=== PATIENT | male | born 1945 | race Caucasian/White ===

== ENCOUNTER 2016-09-22 10:34 | Observation (INO) | payer MEDICARE ==
[2016-09-22] MEDS ORDERED: Sodium Chloride 0.9% 2.5 ML Syringe FLUSH PRN (10:46)
[2016-09-22] MEDS ORDERED: Sodium Chloride 0.9% 10 ML Syringe FLUSH PRN (10:46)
[2016-09-22] MEDS ORDERED: Aspirin 81 MG Tab.Chew PO ONE (10:46)
[2016-09-22] MEDS ORDERED: Famotidine 20 MG/2 ML SDV IVPUSH ONE (10:49)
[2016-09-22] MEDS ORDERED: Nitroglycerin 2% Oint 1 GM UD Packet TOP ONE (10:49)
[2016-09-22] MEDS ORDERED: Ondansetron 4 MG/2 ML SDV ONE (10:50)
[2016-09-22] MEDS ORDERED: Nitroglycerin 0.4 MG Tab.SL ONE (10:50)
[2016-09-22] MEDS ORDERED: Aspirin 81 MG Tab.Chew ONE (10:50)
[2016-09-22] MEDS ORDERED: Morphine 2 MG/ML Syringe ONE (10:50)
[2016-09-22] MEDS ORDERED: Ondansetron 4 MG/2 ML SDV IVPUSH ONE (10:51)
[2016-09-22] MEDS ORDERED: Morphine 10 MG/ML Syringe IV ONE (10:51)
--- NOTE | 2016-09-22 10:57 | EDM.PDOC ---
ED HPI GENERAL MEDICAL PROBLEM - General Chief Complaint: Chest Pain Stated Complaint: CHEST PAIN Time Seen by Provider: 09/22/16 10:40 Source of Information: Reports: Patient History Limitations: Reports: No Limitations - History of Present Illness INITIAL COMMENTS - FREE TEXT/NARRATIVE: HISTORY AND PHYSICAL: []71-year-old male presenting with left-sided chest pain has been present since 6:00 this morning. History of Present Illness: [Pain started 2-3 days ago has been waxing and waning has been constant since 6: 00 AM today. Stent placement in 2009 in [place] Previous history of [place]] and stent placement Son-in-law at bedside relates history of having this pain occur monthly/ recently moved here from [place]. Son-in-law states patient has pain medication for this but refuses to take it as it makes him sleepy and he doesn't want to sleep all day. Patient walked [facility] to come to the emergency room. Review of Systems: As per history of present illness and below otherwise all systems reviewed and negative. Past medical history: As per history of present illness and as reviewed below otherwise noncontributory. Surgical history: As per history of present illness and as reviewed below otherwise noncontributory. Social history: No reported history of drug or alcohol abuse. Family history: As per history of present illness and as reviewed below otherwise noncontributory. Physical exam: Alert and oriented. skin is diaphoretic. Quite anxious on arrival. HEENT: Atraumatic, normocehpalic, pupils reactive, negative for conjunctival pallor or scleral icterus, mucous membranes moist, throat clear, neck supple, nontender, trachea midline. Lungs: Clear to auscultation, breath sounds equal bilaterally, chest non tender. Heart: S1S2, regular, negative for clicks, rubs, or JVD. Pain is somewhat reproducible with palpation to chest Abdomen: Soft, nondistended, nontender. Negative for masses or hepatossplenmegaly. Negative for costovertebral tenderness. Pelvis: Stable nontender. Genitourinary: Deferred. Rectal: Deferred Extremities: Atraumatic, negative for cords or calf pain. Neurovascular unremarkable. Neuro: Awake, alert, oriented. Cranial nerves II through XII unremarkable. Cerebellum unremarkable. Motor and sensory unremarkable throughout. Exam nonfocal. Patient states pain has improved and is sleeping but awakened with blood pressure checks complains the pain is worse again and at a 10. Continues to sleep in between checks. Repeat EKG showing sinus rhythm no changes. Discussed case with Dr. Parker Lopez who is in agreement to observe on telemetry. Consider referral to Dr. Fay and to gastroenterology Diagnostics: [Chest pain protocol] Therapeutics: [Aspirin, Zofran, morphine] Impression: [Atypical chest wall pain] Plan: [Observe on telemetry] Definitive disposition and diagnosis as appropriate pending reevaluation and review of above. Onset: Today, Gradual Duration: Hour(s): (6), Getting Worse Location: Reports: Chest Quality: Reports: Ache, Pressure, Same as Previous Episode Severity: Moderate Improves with: Reports: None Worsens with: Reports: None Associated Symptoms: Reports: No Other Symptoms Midsternal CP Pain Score (Numeric/FACES): 8 - Related Data Allergies Allergy/AdvReac Type Severity Reaction Status Date / Time No Known Allergies Allergy Verified 09/22/16 10:43 Home Meds: Home Meds . [Unable to Verify Home Med List] 09/22/16 [History] Past Medical History HEENT History: Reports: None Cardiovascular History: Reports: High Cholesterol, Hypertension, [place] Respiratory History: Reports: None Gastrointestinal History: Reports: None Genitourinary History: Reports: None Musculoskeletal History: Reports: None Neurological History: Reports: None Psychiatric History: Reports: None Endocrine/Metabolic History: Reports: None Hematologic History: Reports: None Immunologic History: Reports: None Oncologic (Cancer) History: Reports: None Dermatologic History: Reports: None - Infectious Disease History Infectious Disease History: Reports: None - Past Surgical History Head Surgeries/Procedures: Reports: None HEENT Surgical History: Reports: Tonsillectomy, Other (See Below) Other HEENT Surgeries/Procedures: Dental extraction. Throat Surgery Cardiovascular Surgical History: Reports: Carotid Stents Respiratory Surgical History: Reports: None GI Surgical History: Reports: Cholecystectomy Male Surgical History: Reports: None Endocrine Surgical History: Reports: None Musculoskeletal Surgical History: Reports: None Oncologic Surgical History: Reports: None Dermatological Surgical History: Reports: None Social & Family History - Family History Family Medical History: Noncontributory - Tobacco Use Smoking Status *Q: Never Smoker Second Hand Smoke Exposure: No - Caffeine Use Caffeine Use: Reports: Coffee - Recreational Drug Use Recreational Drug Use: No ED ROS GENERAL - Review of Systems Review Of Systems: ROS reveals no pertinent complaints other than HPI. ED EXAM, GENERAL - Physical Exam Exam: See Below (see dictation) Course - Vital Signs Last Recorded V/S: Last Vital Signs Temp 36.2 C 09/22/16 10:39 Pulse 90 09/22/16 10:39 Resp 16 09/22/16 10:39 BP 107/87 09/22/16 11:33 Pulse Ox 98 09/22/16 10:46 - Orders/Labs/Meds Orders: Active Orders 24 hr Category Date Time Status Cardiac Monitoring [RC] . DIRECTED Care 09/22/16 10:46 Active EKG 12 Lead [EKG Documentation Completion] [RC] STAT Care 09/22/16 11:27 Active EKG 12 Lead [EKG Documentation Completion] [RC] STAT Care 09/22/16 11:27 Active EKG Documentation Completion [RC] STAT Care 09/22/16 10:47 Active Oxygen Therapy [RC] ASDIRECTED Care 09/22/16 10:46 Active Pulse Oximetry [RC] ASDIRECTED Care 09/22/16 10:46 Active UA W/MICROSCOPIC [URIN] Stat Lab 09/22/16 11:51 Ordered GI Cocktail with Reglan 25 ML PO x 1 Med 09/22/16 12:09 Ordered Alum Hydrox/Mag Hydrox/Simeth [Mag-Al Plus] 15 ml Metoclopramide [Reglan] 5 mg Lidocaine 2% [Xylocaine 2% Viscous] 5 ml PO ONETIME Sodium Chloride 0.9% [Saline Flush] Med 09/22/16 10:46 Active 10 ml FLUSH ASDIRECTED PRN Sodium Chloride 0.9% [Saline Flush] Med 09/22/16 10:46 Active 2.5 ml FLUSH ASDIRECTED PRN Peripheral IV Insertion Adult [OM.PC] Stat Oth 09/22/16 10:46 Ordered Medication Orders Sodium Chloride (Saline Flush) 10 ml FLUSH ASDIRECTED PRN PRN Reason: Keep Vein Open Last Admin: 09/22/16 11:06 Dose: 10 ml Sodium Chloride (Saline Flush) 2.5 ml FLUSH ASDIRECTED PRN PRN Reason: Keep Vein Open Last Admin: 09/22/16 11:08 Dose: 2.5 ml Labs: Laboratory Tests 09/22/16 09/22/16 09/22/16 Range/Units 10:40 10:40 10:40 WBC 4.98 (4.0-11.0) K/uL RBC 4.53 (4.50-5.90) M/uL Hgb 12.6 L (13.0-17.0) g/dL Hct 39.2 (38.0-50.0) % MCV 86.5 (80.0-98.0) fL MCH 27.8 (27.0-32.0) pg MCHC 32.1 (31.0-37.0) g/dL RDW Std Deviation 50.1 (28.0-62.0) fl RDW Coeff of Ethan 16 H (11.0-15.0) % Plt Count 268 (150-400) K/uL MPV 9.80 (7.40-12.00) fL Neut % (Auto) 61.0 (48.0-80.0) % Lymph % (Auto) 22.9 (16.0-40.0) % [place] % (Auto) 13.3 (0.0-15.0) % Eos % (Auto) 2.6 (0.0-7.0) % Baso % (Auto) 0.2 (0.0-1.5) % Neut # (Auto) 3.0 (1.4-5.7) K/uL Lymph # (Auto) 1.1 (0.6-2.4) K/uL [place] # (Auto) 0.7 (0.0-0.8) K/uL Eos # (Auto) 0.1 (0.0-0.7) K/uL Baso # (Auto) 0.0 (0.0-0.1) K/uL Nucleated RBC % 0.0 /100WBC Nucleated RBCs # 0 K/uL INR 0.97 (0.86-1.11) D-Dimer, Quantitative (0.0-0.52) mg/LFEU Sodium 143 (136-146) mmol/L Potassium 3.5 (3.5-5.1) mmol/L Chloride 109 (98-110) mmol/L Carbon Dioxide 24 (21-31) mmol/L BUN 16 (6.0-23.0) mg/dL Creatinine 0.8 (0.6-1.5) mg/dL Est Cr Clr Drug Dosing 86.53 mL/min Estimated GFR (MDRD) > 60.0 ml/min Glucose 139 H (60-110) mg/dL Calcium 8.7 L (8.8-10.8) mg/dL Total Bilirubin 0.3 (0.1-1.5) mg/dL AST 17 (5-40) IU/L ALT 15 (8-54) IU/L Alkaline Phosphatase 78 (40-150) Troponin I (0.0-0.29) NG/ML Total Protein 7.3 (6.0-8.0) g/dL Albumin 4.5 (3.4-4.8) g/dL Globulin 2.8 (2.0-3.5) g/dL Albumin/Globulin Ratio 1.6 (1.3-2.8) Amylase 52 (10-90) U/L Lipase 14 (7-80) U/L 09/22/16 09/22/16 Range/Units 10:40 10:40 WBC (4.0-11.0) K/uL RBC (4.50-5.90) M/uL Hgb (13.0-17.0) g/dL Hct (38.0-50.0) % MCV (80.0-98.0) fL MCH (27.0-32.0) pg MCHC (31.0-37.0) g/dL RDW Std Deviation (28.0-62.0) fl RDW Coeff of Ethan (11.0-15.0) % Plt Count (150-400) K/uL MPV (7.40-12.00) fL Neut % (Auto) (48.0-80.0) % Lymph % (Auto) (16.0-40.0) % [place] % (Auto) (0.0-15.0) % Eos % (Auto) (0.0-7.0) % Baso % (Auto) (0.0-1.5) % Neut # (Auto) (1.4-5.7) K/uL Lymph # (Auto) (0.6-2.4) K/uL [place] # (Auto) (0.0-0.8) K/uL Eos # (Auto) (0.0-0.7) K/uL Baso # (Auto) (0.0-0.1) K/uL Nucleated RBC % /100WBC Nucleated RBCs # K/uL INR (0.86-1.11) D-Dimer, Quantitative 0.45 (0.0-0.52) mg/LFEU Sodium (136-146) mmol/L Potassium (3.5-5.1) mmol/L Chloride (98-110) mmol/L Carbon Dioxide (21-31) mmol/L BUN (6.0-23.0) mg/dL Creatinine (0.6-1.5) mg/dL Est Cr Clr Drug Dosing mL/min Estimated GFR (MDRD) ml/min Glucose (60-110) mg/dL Calcium (8.8-10.8) mg/dL Total Bilirubin (0.1-1.5) mg/dL AST (5-40) IU/L ALT (8-54) IU/L Alkaline Phosphatase (40-150) Troponin I < 0.10 (0.0-0.29) NG/ML Total Protein (6.0-8.0) g/dL Albumin (3.4-4.8) g/dL Globulin (2.0-3.5) g/dL Albumin/Globulin Ratio (1.3-2.8) Amylase (10-90) U/L Lipase (7-80) U/L Meds: Medications Generic Name Dose Route Start Last Admin Trade Name Freq PRN Reason Stop Dose Admin Sodium Chloride 10 ml 09/22/16 10:46 09/22/16 11:06 Saline Flush FLUSH 10 ml ASDIRECTED PRN Administration Keep Vein Open Sodium Chloride 2.5 ml 09/22/16 10:46 09/22/16 11:08 Saline Flush FLUSH 2.5 ml ASDIRECTED PRN Administration Keep Vein Open Discontinued Medications Generic Name Dose Route Start Last Admin Trade Name Freq PRN Reason Stop Dose Admin Aspirin 324 mg 09/22/16 10:46 09/22/16 10:54 Aspirin PO 09/22/16 10:47 324 mg ONETIME ONE Administration Aspirin Confirm 09/22/16 10:50 09/22/16 11:32 Aspirin Administered 09/22/16 10:51 Not Given Dose 324 mg .ROUTE .STK-MED ONE Al Hydroxide/Mg Hydroxide 15 0 ml 09/22/16 12:09 09/22/16 12:17 ml/ Metoclopramide HCl 5 mg/ PO 09/22/16 12:10 1 each Lidocaine HCl 5 ml ONETIME ONE Administration Famotidine 20 mg 09/22/16 10:49 09/22/16 11:16 Pepcid IVPUSH 09/22/16 10:50 20 mg ONETIME ONE Administration Ketorolac Tromethamine 30 mg 09/22/16 11:34 09/22/16 11:41 Toradol IVPUSH 09/22/16 11:35 30 mg ONETIME ONE Administration Morphine Sulfate Confirm 09/22/16 10:50 09/22/16 11:33 Morphine Administered 09/22/16 10:51 Not Given Dose 2 mg .ROUTE .STK-MED ONE Morphine Sulfate 2 mg 09/22/16 10:51 09/22/16 11:34 Morphine IV 09/22/16 10:52 Not Given ONETIME ONE Morphine Sulfate 2 mg 09/22/16 11:18 09/22/16 11:20 Morphine IVPUSH 09/22/16 11:19 2 mg ONETIME ONE Administration Morphine Sulfate 2 mg 09/22/16 11:44 Morphine IVPUSH 09/22/16 11:45 ONETIME ONE Nitroglycerin 0.4 mg 09/22/16 10:49 09/22/16 11:14 Nitrostat SL 09/22/16 10:50 0.4 mg ONETIME ONE Administration Nitroglycerin 1 gm 09/22/16 10:49 09/22/16 11:25 Nitro-Bid 2% TOP 09/22/16 10:50 1 gm ONETIME ONE Administration Nitroglycerin Confirm 09/22/16 10:50 09/22/16 11:33 Nitrostat Administered 09/22/16 10:51 Not Given Dose 0.4 mg .ROUTE .STK-MED ONE Ondansetron HCl Confirm 09/22/16 10:50 09/22/16 11:34 Zofran Administered 09/22/16 10:51 Not Given Dose 4 mg .ROUTE .STK-MED ONE Ondansetron HCl 4 mg 09/22/16 10:51 09/22/16 10:58 Zofran IVPUSH 09/22/16 10:52 4 mg ONETIME ONE Administration Departure - Departure Time of Disposition: 12:52 Disposition: Refer to Observation Condition: good Clinical Impression: Atypical chest pain Forms: ED Department Discharge - My Orders Last 24 Hours: My Active Orders 09/22/16 10:46 Cardiac Monitoring [RC] . DIRECTED Oxygen Therapy [RC] ASDIRECTED Pulse Oximetry [RC] ASDIRECTED Sodium Chloride 0.9% [Saline Flush] 10 ml FLUSH ASDIRECTED PRN Sodium Chloride 0.9% [Saline Flush] 2.5 ml FLUSH ASDIRECTED PRN Peripheral IV Insertion Adult [OM.PC] Stat 09/22/16 10:47 EKG Documentation Completion [RC] STAT 09/22/16 11:27 EKG 12 Lead [EKG Documentation Completion] [RC] STAT EKG 12 Lead [EKG Documentation Completion] [RC] STAT 09/22/16 11:51 UA W/MICROSCOPIC [URIN] Stat 09/22/16 12:09 GI Cocktail with Reglan 25 ML PO x 1 Alum Hydrox/Mag Hydrox/Simeth [Mag-Al Plus ] 15 ml Metoclopramide [Reglan] 5 mg Lidocaine 2% [Xylocaine 2% Viscous] 5 ml PO ONETIME - Assessment/Plan Last 24 Hours: My Active Orders 09/22/16 10:46 Cardiac Monitoring [RC] . DIRECTED Oxygen Therapy [RC] ASDIRECTED Pulse Oximetry [RC] ASDIRECTED Sodium Chloride 0.9% [Saline Flush] 10 ml FLUSH ASDIRECTED PRN Sodium Chloride 0.9% [Saline Flush] 2.5 ml FLUSH ASDIRECTED PRN Peripheral IV Insertion Adult [OM.PC] Stat 09/22/16 10:47 EKG Documentation Completion [RC] STAT 09/22/16 11:27 EKG 12 Lead [EKG Documentation Completion] [RC] STAT EKG 12 Lead [EKG Documentation Completion] [RC] STAT 09/22/16 11:51 UA W/MICROSCOPIC [URIN] Stat 09/22/16 12:09 GI Cocktail with Reglan 25 ML PO x 1 Alum Hydrox/Mag Hydrox/Simeth [Mag-Al Plus ] 15 ml Metoclopramide [Reglan] 5 mg Lidocaine 2% [Xylocaine 2% Viscous] 5 ml PO ONETIME
[2016-09-22] MEDS: Nitroglycerin 0.4 MG Tab.SL SL ONE ×3 (11:03→11:14)
--- NOTE | 2016-09-22 11:17 | CR ---
EXAMINATION: Portable chest radiograph. HISTORY: Chest pain. FINDINGS: The trachea is midline. The cardiomediastinal silhouette is within normal limits. No pulmonary infil trates, effusions or pneumothorax. Mild aortic calcifications. Degenerative changes are noted within the shoulders bilaterally. IMPRESSION: No acute cardiopulmonary process.
[2016-09-22] MEDS ORDERED: Morphine 2 MG/ML Syringe IVPUSH ONE ×2 (11:18→11:44)
[2016-09-22 11:25] LABS: CHLORIDE,CL 109 mmol/L (98-110); SODIUM,NA 143 mmol/L (136-146)
[2016-09-22] MEDS ORDERED: Ketorolac 30 MG/ML SDV IVPUSH ONE (11:34)
[2016-09-22] MEDS ORDERED: Alum Hydrox/Mag Hydrox/Simeth 15 ML, Metoclopramide 5 MG, Lidocaine 2% 5 ML PO ONE ×3 (12:09)
[2016-09-22] MEDS ORDERED: Morphine 2 MG/ML Syringe IV PRN (14:20)
--- NOTE | 2016-09-22 14:45 | PCM.HP ---
H&P History of Present Illness - General Date of Service: 09/22/16 Admit Problem/Dx: Admission Diagnosis/Problem Admission Diagnosis/Problem Chest wall pain Source of Information: Patient History Limitations: Reports: Other (POOR HISTORIAN) - History of Present Illness Initial Comments - Free Text/Narative: 71 M with chest pain. Sharp, anterior left chest. He awoke with it but he's been having it for a month or so on and off. No relieving or exacerbating factors that he can say. Not pleuritic. No SOB, diaphoresis, N/V. No GI type sxs. He's tried OTC GI RX w/o relief. Went to an ER in [place] (from where he just moved) with same sxs. They sent him home from ER telling him it was "a muscle". He has not seen his appliance repairer in about half a year. Some pain relief with pain meds in ER but ER CAREER DEVELOPMENT SPECIALIST was uncomfortable sending him home from ER given that he is a new patient to our system. He just moved here with his to be closer to his step-daughter. "I didn't want to move here". He denies CHF sxs, syncope, F/C, cough, recent falls. He walks daily and doesn' t notice the pain worsening. This is unlike his angina he had when he got his stents a few years back. He denied much ETOH usage to me but his family told ER staff that he drinks more than 6 ETOH drinks a day. Midsternal CP Pain Score (Numeric/FACES): 8 - Related Data Allergies/Adverse Reactions: Allergies Allergy/AdvReac Type Severity Reaction Status Date / Time No Known Allergies Allergy Verified 09/22/16 10:43 Home Medications: Home Meds . [Unable to Verify Home Med List] 09/22/16 [History] Past Medical History HEENT History: Reports: None Cardiovascular History: Reports: High Cholesterol, Hypertension, [place], Stents Respiratory History: Reports: None Gastrointestinal History: Reports: None Genitourinary History: Reports: None Musculoskeletal History: Reports: None Neurological History: Reports: None Psychiatric History: Reports: None Endocrine/Metabolic History: Reports: None Hematologic History: Reports: None Immunologic History: Reports: None Oncologic (Cancer) History: Reports: None Dermatologic History: Reports: None - Infectious Disease History Infectious Disease History: Reports: None - Past Surgical History Head Surgeries/Procedures: Reports: None HEENT Surgical History: Reports: Tonsillectomy, Other (See Below) Other HEENT Surgeries/Procedures: Dental extraction. Throat Surgery Cardiovascular Surgical History: Reports: Coronary Artery Stent Respiratory Surgical History: Reports: None GI Surgical History: Reports: Cholecystectomy Male Surgical History: Reports: None Endocrine Surgical History: Reports: None Musculoskeletal Surgical History: Reports: None Oncologic Surgical History: Reports: None Dermatological Surgical History: Reports: None Social & Family History - Family History Family Medical History: Noncontributory - Tobacco Use Smoking Status *Q: Never Smoker Second Hand Smoke Exposure: No - Caffeine Use Caffeine Use: Reports: Coffee - Alcohol Use Alcohol Use History: Yes Alcohol Use Frequency: Daily - Recreational Drug Use Recreational Drug Use: No - Living Situation & Occupation Living situation: Reports: Occupation: Retired H&P Review of Systems - Review of Systems: Review Of Systems: ROS reveals no pertinent complaints other than HPI. Exam - Exam Exam: See Below - Vital Signs Vital Signs: Last Vital Signs Temp 36.2 C 09/22/16 10:39 Pulse 90 09/22/16 10:39 Resp 16 09/22/16 10:39 BP 107/87 09/22/16 11:33 Pulse Ox 98 09/22/16 10:46 Weight: 70.2 kg - Exam General: Alert, Oriented, Cooperative, Other (disheveled; poor historian but oriented and appropriate) HEENT: Conjunctiva Clear, EACs Clear Neck: Supple, Trachea Midline, +2 Carotid Pulse wo Bruit. No: Carotid Bruit, JVD, Thyromegaly Lungs: Clear to Auscultation, Normal Respiratory Effort Cardiovascular: Regular Rate, Regular Rhythm, Normal S1, Normal S2, Gallop/S4, Other (significant chest wall tenderness left chest; no bruising or zoster rash) Abdomen: Normal Bowel Sounds, Soft, Pelvis Stable. No: Organomegaly, Peritoneal Signs, Distention, Guarding, Rigidity, Rebound, Tenderness Extremities: Normal Inspection. No: Edema Skin: Warm, Dry, Intact. No: Rash, Ecchymosis Neurological: Cranial Nerves Intact, Reflexes Equal Bilateral Neuro Extensive - Mental Status: Alert, Oriented x3 Neuro Extensive - Motor, Sensory, Reflexes: CN II-XII Intact, Normal Gait, Normal Reflexes Psychiatric: Alert, Normal Affect, Normal Mood - Patient Data Result Diagrams: 09/22/16 10:40 09/22/16 10:40 EKG INTERPRETATION Rhythm: NSR *Q Meaningful Use (ADM) - VTE *Q VTE Criteria *Q: - Stroke *Q Stroke Criteria *Q: - AMI *Q AMI Criteria *Q: - Problem List (1) Coronary artery disease SNOMED Code(s): 89819788 ICD Code: I25.10 - ATHSCL HEART DISEASE OF [place] CORONARY ARTERY W/O ANG PCTRS Status: Acute Current Visit: Yes (2) History of coronary artery stent placement SNOMED Code(s): 222364687, 189835280 ICD Code: Z95.5 - PRESENCE OF CORONARY ANGIOPLASTY IMPLANT AND GRAFT Status : Acute Current Visit: Yes (3) Hyperlipidemia SNOMED Code(s): 04384839 ICD Code: E78.5 - HYPERLIPIDEMIA, UNSPECIFIED Status: Acute Current Visit : Yes (4) HTN (hypertension) SNOMED Code(s): 95629052 ICD Code: I10 - ESSENTIAL (PRIMARY) HYPERTENSION Status: Acute Current Visit: Yes (5) Alcohol abuse SNOMED Code(s): 72432287 ICD Code: F10.10 - ALCOHOL ABUSE, UNCOMPLICATED Status: Acute Current Visit: Yes (6) Atypical chest pain SNOMED Code(s): 684487574 ICD Code: R07.89 - OTHER CHEST PAIN Status: Acute Current Visit: Yes Problem List Initiated/Reviewed/Updated: Yes Orders Last 24hrs: Active Orders 24 hr Category Date Time Status Cardiac Education [RC] Click To Edit Care 09/22/16 14:20 Ordered Cardiac Monitoring [RC] . DIRECTED Care 09/22/16 14:20 Ordered EKG Documentation Completion [RC] AM Care 09/23/16 06:00 Ordered Ribs 2V wo Chest Lt [CR] Routine Exams 09/22/16 14:27 Ordered CBC WITH AUTO DIFF [HEME] AM Lab 09/23/16 05:11 Ordered CKMB [CHEM] Q6H Lab 09/22/16 18:00 Ordered CKMB [CHEM] Q6H Lab 09/23/16 00:00 Ordered COMPREHENSIVE METABOLIC PN,CMP [CHEM] AM Lab 09/23/16 05:11 Ordered CREATINE KINASE,CK [CHEM] Q6H Lab 09/22/16 18:00 Ordered CREATINE KINASE,CK [CHEM] Q6H Lab 09/23/16 00:00 Ordered LIPID PANEL [CHEM] AM Lab 09/23/16 05:11 Ordered MAGNESIUM [CHEM] AM Lab 09/23/16 05:11 Ordered TROPONIN I [CHEM] Q6H Lab 09/22/16 18:00 Ordered TROPONIN I [CHEM] Q6H Lab 09/23/16 00:00 Ordered Aspirin Med 09/23/16 09:00 Ordered 81 mg PO DAILY Morphine Med 09/22/16 14:20 Ordered 2 mg IV Q2H PRN Omeprazole Med 09/23/16 09:00 Ordered 20 mg PO DAILY Medication Orders Aspirin (Aspirin) 81 mg PO DAILY ERICK Morphine Sulfate (Morphine) 2 mg IV Q2H PRN PRN Reason: Chest Pain Stop: 09/23/16 14:21 Omeprazole (Omeprazole) 20 mg PO DAILY ERICK Sodium Chloride (Saline Flush) 10 ml FLUSH ASDIRECTED PRN PRN Reason: Keep Vein Open Last Admin: 09/22/16 11:06 Dose: 10 ml Sodium Chloride (Saline Flush) 2.5 ml FLUSH ASDIRECTED PRN PRN Reason: Keep Vein Open Last Admin: 09/22/16 11:08 Dose: 2.5 ml Assessment/Plan Comment:: 1. atypical chest pain; probably chest wall but with hx, reasonable to obs overnight; doubt GI or PE 2. chest wall pain 3. Hx of CAD and coronary stents x 2. 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 Working on getting records. 4. HTN 5. DLD 6. ETOH abuse NOS--different stories so far PLAN: R/O [place] Protocol Reconcile home meds when list available Old records from cards check lipids check rib series alcohol w/d protocol asa f/u with cards and PCP of choice after dc.
[2016-09-22] MEDS ORDERED: Acetaminophen/oxyCODONE 325-5 MG Tab PO PRN (17:49)
[2016-09-22] MEDS ORDERED: Sennosides 8.6 MG Tab PO PRN (17:49)
[2016-09-22] MEDS: amLODIPine 5 MG Tab PO SCH (21:03)
[2016-09-22] MEDS: Morphine 15 MG Tab.ER PO SCH (21:03)
[2016-09-23 05:14] LABS: CHLORIDE,CL 109 mmol/L (98-110); SODIUM,NA 144 mmol/L (136-146)
[2016-09-23] MEDS ORDERED: Omeprazole 20 MG Cap.CR PO SCH (07:30)
[2016-09-23] MEDS ORDERED: Pantoprazole 40 MG Tab.CR PO SCH (07:30)
[2016-09-23] MEDS ORDERED: Potassium Chloride 20 MEQ Tab.ER PO ONE (07:35)
[2016-09-23] MEDS ORDERED: Carvedilol 3.125 MG Tab PO SCH (08:00)
[2016-09-23] MEDS: amLODIPine 5 MG Tab PO SCH (08:08)
[2016-09-23] MEDS: Morphine 15 MG Tab.ER PO SCH (08:09)
[2016-09-23] MEDS ORDERED: Pravastatin 40 MG Tab PO SCH (09:00)
[2016-09-23] MEDS ORDERED: Isosorbide Mononitrate 30 MG Tab.ER PO SCH (09:00)
[2016-09-23] MEDS ORDERED: Aspirin 81 MG Tab.Chew PO SCH (09:00)
--- NOTE | 2016-09-23 09:18 | CR ---
EXAMINATION: Left ribs HISTORY: Chest wall tenderness COMPARISON: Chest x-ray from the same day TECHNIQUE: 2 views FINDINGS/IMPRESSION: There is no displaced rib fracture identified. No pneumothorax or pleural effus ion. Bone mineralization appears normal.
[2016-09-23 12:52] VITALS: BP 101/67
--- NOTE | 2016-09-23 19:34 | PCM.DCSUM1 ---
Discharge Summary - Hospital Course HPI Initial Comments: 71-year-old male admitted on 09/22/16 for atypical chest pain with past medical history CAD with stents x2, hypertension, hyperlipidemia, and alcohol abuse NOS. Brief History: Patient presented to emergency room with complaint of chest pain that was sharp and in the anterior left chest. He stated that he awoke with it but had been having it for a month or so on and off. Patient is originally from [place] and has been followed by a visiting housekeeper there by the name of Dr. Damon but had not seen him in half a year. He stated that he went to the ER in [place] where he had just moved from with similar symptoms and they told him that it was a muscle pain. Patient has moved to [place] to be closer to his stepdaughter. Patient did admit to getting angina but stated that the pain was different than this and more like when he had originally had his stents placed. Patient initially denied much alcohol usage but family had told the ER staff that he drinks more than 6 EtOH drinks a day. - Discharge Data Discharge Date: 09/23/16 Discharge Disposition: Home, Self-Care 01 Condition: Good - Discharge Diagnosis/Problem(s) (1) Alcohol abuse SNOMED Code(s): 87634777 ICD Code: F10.10 - ALCOHOL ABUSE, UNCOMPLICATED Status: Acute Priority: Medium (2) Atypical chest pain SNOMED Code(s): 280835134 ICD Code: R07.89 - OTHER CHEST PAIN Status: Acute Priority: High (3) Coronary artery disease SNOMED Code(s): 26306383 ICD Code: I25.10 - ATHSCL HEART DISEASE OF [place] CORONARY ARTERY W/O ANG PCTRS Status: Chronic Priority: Medium Qualifiers: Associated angina: with unspecified angina (4) HTN (hypertension) SNOMED Code(s): 49918935 ICD Code: I10 - ESSENTIAL (PRIMARY) HYPERTENSION Status: Chronic Priority : Medium Qualifiers: Hypertension type: essential hypertension Qualified Code(s): I10 - Essential (primary) hypertension (5) History of coronary artery stent placement SNOMED Code(s): 798431997, 687419396 ICD Code: Z95.5 - PRESENCE OF CORONARY ANGIOPLASTY IMPLANT AND GRAFT Status : Chronic Priority: Medium (6) Hyperlipidemia SNOMED Code(s): 75165984 ICD Code: E78.5 - HYPERLIPIDEMIA, UNSPECIFIED Status: Chronic Priority: Medium Qualifiers: Hyperlipidemia type: unspecified Qualified Code(s): E78.5 - Hyperlipidemia , unspecified - Patient Summary/Data Consults: Consultations 09/23/16 19:27 Consult to Physician [CONS] Routine Hospital Course: 71-year-old male admitted on 09/22/16 for atypical chest pain with past medical history CAD with stents x2, hypertension, hyperlipidemia, and alcohol abuse NOS. Patient presented to emergency room with complaint of chest pain that was sharp and in the anterior left chest. He stated that he awoke with it but had been having it for a month or so on and off. Patient is originally from [place] and has been followed by a visiting housekeeper there by the name of Dr. Damon but had not seen him in half a year. He stated that he went to the ER in [place] where he had just moved from with similar symptoms and they told him that it was a muscle pain. Patient has moved to [place] to be closer to his stepdaughter. Patient did admit to getting angina but stated that the pain was different than this and more like when he had originally had his stents placed. Patient initially denied much alcohol usage but family had told the ER staff that he drinks more than 6 EtOH drinks a day. In the emergency department, vitals were stable and initial troponin was negative. CBC was unremarkable. ECG showed no acute ischemic changes. CMP showed hypokalemia which was corrected during patient's stay. Rib x-ray was unremarkable. Patient continued to have atypical chest pain throughout his stay with no significant acute ischemic changes on ECG and serial troponins negative. Musical String Maker was consult at this before discharge. He recommended continuing patient's current medical regime and he will follow with him as an outpatient with echocardiogram and Donita scan. He was discharged in good condition and was told to return to emergency Department if he had any similar symptoms. - Patient Instructions Diet: Heart Healthy Diet Activity: Rest and Relax Today Driving: Do Not Drive Showering/Bathing: August Shower Notify Provider of: Fever, Increased Pain, Swelling and Redness, Drainage, Nausea and/or Vomiting Other/Special Instructions: Follow-up with PCP appointment.. Follow-up with visiting housekeeper Dr. Camarena - Discharge Plan Home Medications: Home Meds Aspirin [Halfprin] 81 mg PO DAILY 09/22/16 [History] Carvedilol 3.125 mg PO BID 09/22/16 [History] Isosorbide Mononitrate [Imdur] 30 mg PO DAILY 09/22/16 [History] Morphine [MS Contin] 15 mg PO Q12HR 09/22/16 [History] Pantoprazole [ProTONIX] 40 mg PO ACBREAKFAST 09/22/16 [History] Pravastatin [Pravachol] 40 mg PO DAILY 09/22/16 [History] Sennosides [Senokot] 8.6 mg PO BID PRN 09/22/16 [History] amLODIPine [Norvasc] 5 mg PO BID 09/22/16 [History] oxyCODONE HCl/Acetaminophen [Percocet 5-325 mg Tablet] 1 each PO Q6HR PRN [History] Patient Handouts: Nonspecific Chest Pain, [id number] Referrals: Bo Lopez MD [Physician] - 10/01/16 1:00 pm Eliane Jang NP [Nurse Practitioner] - 10/01/16 9:30 am - Discharge Summary/Plan Comment DC Time >30 min.: Yes Discharge Summary/Plan Comment: 71-year-old male admitted on 09/22/16 for atypical chest pain with past medical history CAD with stents x2, hypertension, hyperlipidemia, and alcohol abuse NOS. Patient presented to emergency room with complaint of chest pain that was sharp and in the anterior left chest. He stated that he awoke with it but had been having it for a month or so on and off. Patient is originally from [place] and has been followed by a visiting housekeeper there by the name of Dr. Damon but had not seen him in half a year. He stated that he went to the ER in [place] where he had just moved from with similar symptoms and they told him that it was a muscle pain. Patient has moved to [place] to be closer to his stepdaughter. Patient did admit to getting angina but stated that the pain was different than this and more like when he had originally had his stents placed. Patient initially denied much alcohol usage but family had told the ER staff that he drinks more than 6 EtOH drinks a day. In the emergency department, vitals were stable and initial troponin was negative. CBC was unremarkable. ECG showed no acute ischemic changes. CMP showed hypokalemia which was corrected during patient's stay. Rib x-ray was unremarkable. Patient continued to have atypical chest pain throughout his stay with no significant acute ischemic changes on ECG and serial troponins negative. Musical String Maker was consult at this before discharge. He recommended continuing patient's current medical regime and he will follow with him as an outpatient with echocardiogram and Donita scan. He was discharged in good condition and was told to return to emergency Department if he had any similar symptoms. - General Info Date of Service: 09/23/16 Admission Dx/Problem (Free Text: Admission Diagnosis/Problem Admission Diagnosis/Problem Chest wall pain Subjective Update: No chest pain, sob, or palpitations this am but did have chest pain overnight. Same left anterior chest pain that is tender to touch. Otherwise doing well. Functional Status: Reports: pain controlled - Review of Systems General: Denies: Fever, Weakness, Fatigue HEENT: Denies: dysphasia Pulmonary: Reports: pleuritic chest pain. Denies: shortness of breath, cough, wheezing Cardiovascular: Reports: Chest Pain. Denies: Palpitations, Edema Gastrointestinal: Denies: No symptoms, Abdominal pain, Nausea, Vomiting Genitourinary: Denies: dysuria Musculoskeletal: Denies: neck pain, leg pain Skin: Denies: cyanosis Neurological: Denies: Confusion, Dizziness, Headache Psychiatric: Denies: confusion - Patient Data Vitals - Most Recent: Last Vital Signs Temp 36.7 C 09/23/16 12:00 Pulse 64 09/23/16 12:00 Resp 16 09/23/16 12:00 BP 101/67 09/23/16 12:00 Pulse Ox 96 09/23/16 12:00 Weight - Most Recent: 70.2 kg I&O - Last 24 hours: Intake & Output 09/23/16 09/23/16 09/23/16 06:59 14:59 22:59 Intake Total 200 500 Output Total 0 1000 Balance 200 -500 Lab Results - Last 24 hrs: Laboratory Results - last 24 hr 09/23/16 09/23/16 09/23/16 Range/Units 00:16 00:16 04:30 WBC 4.04 (4.0-11.0) K/uL RBC 4.12 L (4.50-5.90) M/uL Hgb 11.4 L (13.0-17.0) g/dL Hct 36.2 L (38.0-50.0) % MCV 87.9 (80.0-98.0) fL MCH 27.7 (27.0-32.0) pg MCHC 31.5 (31.0-37.0) g/dL RDW Std Deviation 51.1 (28.0-62.0) fl RDW Coeff of Ethan 16 H (11.0-15.0) % Plt Count 220 (150-400) K/uL MPV 9.70 (7.40-12.00) fL Add Manual Diff YES Neutrophils % (Manual) 36 L (48.0-80.0) % Lymphocytes % (Manual) 49 H (16.0-40.0) % Monocytes % (Manual) 12 (0.0-15.0) % Eosinophils % (Manual) 3 (0.0-7.0) % Nucleated RBC % 0.0 /100WBC Absolute Seg Neuts 1.5 Lymphocytes # (Manual) 2.0 Monocytes # (Manual) 0.5 Eosinophils # (Manual) 0.1 Nucleated RBCs # 0 K/uL Sodium (136-146) mmol/L Potassium (3.5-5.1) mmol/L Chloride (98-110) mmol/L Carbon Dioxide (21-31) mmol/L BUN (6.0-23.0) mg/dL Creatinine (0.6-1.5) mg/dL Est Cr Clr Drug Dosing mL/min Estimated GFR (MDRD) ml/min Glucose (60-110) mg/dL Calcium (8.8-10.8) mg/dL Magnesium (1.5-2.3) mEq/L Total Bilirubin (0.1-1.5) mg/dL AST (5-40) IU/L ALT (8-54) IU/L Alkaline Phosphatase (40-150) Creatine Kinase 102 (9-236) IU/L CK-MB (CK-2) 1.3 (0-6.6) ng/ml Troponin I < 0.10 (0.0-0.29) NG/ML Total Protein (6.0-8.0) g/dL Albumin (3.4-4.8) g/dL Globulin (2.0-3.5) g/dL Albumin/Globulin Ratio (1.3-2.8) Triglycerides (10-190) mg/dL Cholesterol (131-240) mg/dL LDL Cholesterol, Calc (60-180) mg/dL VLDL Cholesterol (5-55) mg/dL HDL Cholesterol (40-80) mg/dL Cholesterol/HDL Ratio (3.3-6.0) Urine Color Urine Appearance Urine pH (5.0-8.0) Ur Specific [place] (1.001-1.035) Urine Protein (NEGATIVE) mg/dL Urine Glucose (UA) (NEGATIVE) mg/dL Urine Ketones (NEGATIVE) mg/dL Urine Occult Blood (NEGATIVE) Urine Nitrite (NEGATIVE) Urine Bilirubin (NEGATIVE) Urine Urobilinogen (<2.0) EU/dL Ur Leukocyte Esterase (NEGATIVE) Urine RBC (0-2/HPF) Urine WBC (0-5/HPF) Ur Epithelial Cells (NONE-FEW) Urine Bacteria (NEGATIVE) Urine Mucus (NONE-MOD) 09/23/16 09/23/16 Range/Units 04:30 15:15 WBC (4.0-11.0) K/uL RBC (4.50-5.90) M/uL Hgb (13.0-17.0) g/dL Hct (38.0-50.0) % MCV (80.0-98.0) fL MCH (27.0-32.0) pg MCHC (31.0-37.0) g/dL RDW Std Deviation (28.0-62.0) fl RDW Coeff of Ethan (11.0-15.0) % Plt Count (150-400) K/uL MPV (7.40-12.00) fL Add Manual Diff Neutrophils % (Manual) (48.0-80.0) % Lymphocytes % (Manual) (16.0-40.0) % Monocytes % (Manual) (0.0-15.0) % Eosinophils % (Manual) (0.0-7.0) % Nucleated RBC % /100WBC Absolute Seg Neuts Lymphocytes # (Manual) Monocytes # (Manual) Eosinophils # (Manual) Nucleated RBCs # K/uL Sodium 144 (136-146) mmol/L Potassium 3.4 L (3.5-5.1) mmol/L Chloride 109 (98-110) mmol/L Carbon Dioxide 25 (21-31) mmol/L BUN 17 (6.0-23.0) mg/dL Creatinine 0.9 (0.6-1.5) mg/dL Est Cr Clr Drug Dosing 72.42 mL/min Estimated GFR (MDRD) > 60.0 ml/min Glucose 110 (60-110) mg/dL Calcium 8.4 L (8.8-10.8) mg/dL Magnesium 1.9 (1.5-2.3) mEq/L Total Bilirubin 0.4 (0.1-1.5) mg/dL AST 17 (5-40) IU/L ALT 12 (8-54) IU/L Alkaline Phosphatase 60 (40-150) Creatine Kinase (9-236) IU/L CK-MB (CK-2) (0-6.6) ng/ml Troponin I (0.0-0.29) NG/ML Total Protein 6.3 (6.0-8.0) g/dL Albumin 4.0 (3.4-4.8) g/dL Globulin 2.3 (2.0-3.5) g/dL Albumin/Globulin Ratio 1.7 (1.3-2.8) Triglycerides 73 (10-190) mg/dL Cholesterol 175 (131-240) mg/dL LDL Cholesterol, Calc 115 (60-180) mg/dL VLDL Cholesterol 15 (5-55) mg/dL HDL Cholesterol 45 (40-80) mg/dL Cholesterol/HDL Ratio 3.9 (3.3-6.0) Urine Color YELLOW Urine Appearance CLEAR Urine pH 6.0 (5.0-8.0) Ur Specific [place] 1.015 (1.001-1.035) Urine Protein NEGATIVE (NEGATIVE) mg/dL Urine Glucose (UA) NEGATIVE (NEGATIVE) mg/dL Urine Ketones NEGATIVE (NEGATIVE) mg/dL Urine Occult Blood NEGATIVE (NEGATIVE) Urine Nitrite NEGATIVE (NEGATIVE) Urine Bilirubin NEGATIVE (NEGATIVE) Urine Urobilinogen 0.2 (<2.0) EU/dL Ur Leukocyte Esterase NEGATIVE (NEGATIVE) Urine RBC 0-1 (0-2/HPF) Urine WBC 0-1 (0-5/HPF) Ur Epithelial Cells RARE (NONE-FEW) Urine Bacteria RARE (NEGATIVE) Urine Mucus LIGHT (NONE-MOD) Med Orders - Current: Current Medications Discontinued Medications Amlodipine Besylate (Norvasc) 5 mg PO BID ERICK Last Admin: 09/23/16 08:08 Dose: 5 mg Aspirin (Aspirin) 324 mg PO ONETIME ONE Stop: 09/22/16 10:47 Last Admin: 09/22/16 10:54 Dose: 324 mg Aspirin (Aspirin) Confirm Administered Dose 324 mg .ROUTE .STK-MED ONE Stop: 09/22/16 10:51 Last Admin: 09/22/16 11:32 Dose: Not Given Aspirin (Aspirin) 81 mg PO DAILY PENDING SALE TO [facility] Last Admin: 09/23/16 08:07 Dose: 81 mg Carvedilol (Coreg) 3.125 mg PO BIDMEALS PENDING SALE TO [facility] Last Admin: 09/23/16 08:08 Dose: 3.125 mg Al Hydroxide/Mg Hydroxide 15 ml/ Metoclopramide HCl 5 mg/Lidocaine HCl 5 ml 0 ml PO ONETIME ONE Stop: 09/22/16 12:10 Last Admin: 09/22/16 12:17 Dose: 1 each Famotidine (Pepcid) 20 mg IVPUSH ONETIME ONE Stop: 09/22/16 10:50 Last Admin: 09/22/16 11:16 Dose: 20 mg Isosorbide Mononitrate (Imdur) 30 mg PO DAILY PENDING SALE TO [facility] Last Admin: 09/23/16 08:08 Dose: 30 mg Ketorolac Tromethamine (Toradol) 30 mg IVPUSH ONETIME ONE Stop: 09/22/16 11:35 Last Admin: 09/22/16 11:41 Dose: 30 mg Morphine Sulfate (Morphine) Confirm Administered Dose 2 mg .ROUTE .STK-MED ONE Stop: 09/22/16 10:51 Last Admin: 09/22/16 11:33 Dose: Not Given Morphine Sulfate (Morphine) 2 mg IV ONETIME ONE Stop: 09/22/16 10:52 Last Admin: 09/22/16 11:34 Dose: Not Given Morphine Sulfate (Morphine) 2 mg IVPUSH ONETIME ONE Stop: 09/22/16 11:19 Last Admin: 09/22/16 11:20 Dose: 2 mg Morphine Sulfate (Morphine) 2 mg IVPUSH ONETIME ONE Stop: 09/22/16 11:45 Last Admin: 09/22/16 14:33 Dose: Not Given Morphine Sulfate (Morphine) 2 mg IV Q2H PRN PRN Reason: Chest Pain Stop: 09/23/16 14:21 Last Admin: 09/22/16 15:13 Dose: 2 mg Morphine Sulfate (Ms Contin) 15 mg PO Q12HR PENDING SALE TO [facility] Last Admin: 09/23/16 08:09 Dose: 15 mg Nitroglycerin (Nitrostat) 0.4 mg SL ONETIME ONE Stop: 09/22/16 10:50 Last Admin: 09/22/16 11:14 Dose: 0.4 mg Nitroglycerin (Nitro-Bid 2%) 1 gm TOP ONETIME ONE Stop: 09/22/16 10:50 Last Admin: 09/22/16 11:25 Dose: 1 gm Nitroglycerin (Nitrostat) Confirm Administered Dose 0.4 mg .ROUTE .STK-MED ONE Stop: 09/22/16 10:51 Last Admin: 09/22/16 11:33 Dose: Not Given Omeprazole (Omeprazole) 20 mg PO ACBREAKFAST PENDING SALE TO [facility] Ondansetron HCl (Zofran) Confirm Administered Dose 4 mg .ROUTE .STK-MED ONE Stop: 09/22/16 10:51 Last Admin: 09/22/16 11:34 Dose: Not Given Ondansetron HCl (Zofran) 4 mg IVPUSH ONETIME ONE Stop: 09/22/16 10:52 Last Admin: 09/22/16 10:58 Dose: 4 mg Oxycodone/Acetaminophen (Percocet 325-5 Mg) 1 tab PO Q6HR PRN PRN Reason: Pain Last Admin: 09/22/16 19:26 Dose: 1 tab Pantoprazole Sodium (Protonix) 40 mg PO ACBREAKFAST PENDING SALE TO [facility] Last Admin: 09/23/16 06:43 Dose: 40 mg Potassium Chloride (Klor-Con M20) 40 meq PO ONETIME ONE Stop: 09/23/16 07:36 Last Admin: 09/23/16 08:08 Dose: 40 meq Pravastatin Sodium (Pravachol) 40 mg PO DAILY PENDING SALE TO [facility] Last Admin: 09/23/16 08:08 Dose: 40 mg Senna (Senna) 8.6 mg PO BID PRN PRN Reason: Constipation Sodium Chloride (Saline Flush) 10 ml FLUSH ASDIRECTED PRN PRN Reason: Keep Vein Open Last Admin: 09/22/16 11:06 Dose: 10 ml Sodium Chloride (Saline Flush) 2.5 ml FLUSH ASDIRECTED PRN PRN Reason: Keep Vein Open Last Admin: 09/22/16 11:08 Dose: 2.5 ml - Exam Quality Assessment: Reports: DVT prophylaxis General: Reports: alert, oriented, cooperative, no acute distress HEENT: Reports: Pupils equal, Pupils reactive, EOMI, Mucous membr. moist/pink Neck: Reports: supple Lungs: Reports: Clear to auscultation, Normal respiratory effort Cardiovascular: Reports: Regular Rate, Regular Rhythm, Other (left anterior chest wall pain with palpation) Abdomen: Reports: bowel sounds present, soft, no tenderness, no distension Back Exam: Reports: Normal Inspection Extremities: Reports: no edema, normal pulses, no calf tenderness. Denies: edema Skin: Reports: warm, dry, intact Wound/Incisions: Reports: healing well Neurological: Reports: no new focal deficit Psy/Mental Status: Reports: alert, normal affect, normal mood *Q Meaningful Use (DIS) - VTE *Q VTE Criteria *Q: - Stroke *Q Stroke Criteria *Q: - AMI *Q AMI Criteria *Q:
--- NOTE | 2016-09-23 20:48 | CONS ---
DATE OF CONSULTATION: DATE OF : 1945 PRIMARY CARE PHYSICIAN: None PCP REASON FOR CONSULTATION: Chest pain. HISTORY OF PRESENT ILLNESS: This is a 71-year-old male with history of separate CAD, status post 2 stents in 2009 presented to the hospital at this time due to chest pain. He stated that he has had chest pain more than 3 times. The one that he remembers is in June when he was in [place] and he was told that it was the muscle. Last Tuesday, he started having chest pain when he woke up. It lasted for all day long and he had another episode of chest pain again yesterday and it lasted for a day long as well. He described it as a sharp pain on the left-sided chest wall. No radiation. It was very bad pain. Not related to respiration, but however, is somewhat getting worse with walking. He did not call 911; however, he was walking from home, which is 3 or 4 miles away to the emergency room, and then he was kept overnight. Troponin was negative x2. EKG no changes and is being discharged currently. He claimed that his chest pain sounds very similar to the time that he had the chest pain for the heart attack. He also claimed that he was seen by advertising campaign manager in [place] around 4 or 5 months ago and had a stress test done with a treadmill; however, he could not complete it for some reason. He did not recall the reason of not completing the stress test and he was told everything looked fine. MEDICATIONS: Including Coreg 3.125, Imdur 30 mg once a day, aspirin 81 mg once a day, and pravastatin 40 mg once a day. He also takes morphine for his chest pain that is what he claimed. PAST MEDICAL HISTORY: Including CAD status post PCI x2 in 2009, dyslipidemia, and history of alcoholic abuse. ALLERGIES: No known drug allergies. SOCIAL HISTORY: He denies alcohol drinking, but has a history of alcoholic consumption. Denies smoking as well as drug use. FAMILY HISTORY: His father had a history of cancer. His mother had a history of CAD at age 56. REVIEW OF SYSTEMS: A 12-point review of systems has been negative except as indicated in HPI. No leg swelling. No orthopnea. No PND. No passing out. No heart racing. However, he stated that when he has some pain in his chest, he has some sweating as well as breathing hard as well. PHYSICAL EXAMINATION: VITAL SIGNS: Blood pressure 100/67, heart rate of 66, pulse is 70, temperature 36.4, respirations 16, and O2 saturation 99%. HEENT: No pallor. No jaundice. No JVD. HEART: Normal S1, S2. No murmur. LUNGS: Clear. CHEST: Chest wall very markedly tender on palpation of the left chest wall pain and reproducible pain. ABDOMEN: Soft, nontender. Bowel sounds present. No hepatosplenomegaly. EXTREMITIES: Legs no edema. INVESTIGATIONS: The rib x-ray has no fractures. EKG shows sinus rhythm. Telemetry, he developed isorhythmic junctional rhythm when he was sleeping at night. ASSESSMENT AND PLAN: This is a 71-year-old male with history of hyperlipidemia, coronary artery disease status post percutaneous coronary intervention, who presented with chest pain. Chest pain sounds very atypical for cardiac angina history with reproducible pain on palpation and very marked tenderness. However, he claims that his chest pain sounds very similar to the time that he had a heart attack. I would do a chemical stress test. There is unknown reason why he cannot complete a treadmill test, so I will do a Lexiscan stat and also, I am going to schedule for an echocardiogram. I will continue only the current medication without adjusting, and then we will go from there. I will follow up as an outpatient after he has a test done. PASTOR GUTIERREZ /[id number]
== END 2016-09-23 16:00 | disposition home or self-care (01) ==
LOC: MW.ED 10:34 → MW.MS 12:49
PROVIDERS: ADMIT Internal Medicine; ATTEND Internal Medicine
DX: R07.89 Other chest pain (principal); F10.10 Alcohol abuse, uncomplicated; I25.10 Atherosclerotic heart disease of native coronary artery without angina pectoris; I10 Essential (primary) hypertension; E78.5 Hyperlipidemia, unspecified; E78.00 Pure hypercholesterolemia, unspecified; I25.2 Old myocardial infarction; Z95.5 Presence of coronary angioplasty implant and graft; Z79.82 Long term (current) use of aspirin; Z79.899 Other long term (current) drug therapy; Z90.49 Acquired absence of other specified parts of digestive tract; Z90.89 Acquired absence of other organs; Z98.890 Other specified postprocedural states
CPT/HCPCS: 36415; 71010; 71100; 80053; 80061; 81001; 82150; 82550; 82553; 83690; 83735; 84484; 85025; 85379; 85610; 93005; 96374; 96375; 97802; 99285; A9270; J1885; J2270; J2405; 51798; 96376; G0378

== ENCOUNTER 2016-11-22 08:58 | Observation (INO) | payer MEDICARE, MEDICAID ==
[2016-11-22] MEDS ORDERED: Aspirin 81 MG Tab.Chew PO ONE (09:10)
[2016-11-22] MEDS ORDERED: Sodium Chloride 0.9% 2.5 ML Syringe FLUSH PRN ×2 (09:10→12:32)
[2016-11-22] MEDS ORDERED: Sodium Chloride 0.9% 10 ML Syringe FLUSH PRN ×2 (09:10→12:32)
[2016-11-22] MEDS: Nitroglycerin 0.4 MG Tab.SL SL SCH ×3 (09:19→09:32)
--- NOTE | 2016-11-22 09:19 | EDM.PDOC ---
ED HPI GENERAL MEDICAL PROBLEM - General Chief Complaint: Chest Pain Stated Complaint: CHEST PAIN Time Seen by Provider: 11/22/16 08:59 - History of Present Illness INITIAL COMMENTS - FREE TEXT/NARRATIVE: HISTORY AND PHYSICAL: History of present illness: The patient is a 71-year-old male with a history of ischemic dilated cardiomyopathy, hypercholesterolemia coronary artery disease with stent placement years ago as well as hypertension who is followed in our clinic and presents with complaints of left upper chest wall pain that has been ongoing. He is not a very good historian as he has been seen in the clinic for chest pain recently and does not recall any of chest pain on those visits. He was seen on October 01 as well as October 29. He has had outpatient testing including an echo and a Carmen scan the results of which I will try to review at a later time. He says that he has been having this left-sided chest pain which is similar to prior episodes of chest pain and use nitroglycerin yesterday 3 and it did not help. He was restless all night and did not sleep well and still has the chest pain today and rates it as an 8/10. He feels sweaty with it but no nausea no shortness of breath and no recent trauma or upper respiratory symptoms. He did not try any nitroglycerin today. He also takes MS Contin on a regular basis for chronic pain. He denies any leg pain or swelling and says he's been eating and drinking normally. He says his pain is very similar to his prior episodes but he feels like it is worse than usual. He says it doesn't radiate to his jaw arm or back. The patient does have a history per the notes of chest wall pain Review of systems: As per history of present illness and below otherwise all systems reviewed and negative. Past medical history: As per history of present illness and as reviewed below otherwise noncontributory. Surgical history: As per history of present illness and as reviewed below otherwise noncontributory. Social history: No reported history of drug or alcohol abuse. Family history: As per history of present illness and as reviewed below otherwise noncontributory. Physical exam: Gen.: Thin male who is nontoxic and speaking clearly and looks very anxious on my initial evaluation. He is tearful. HEENT: Atraumatic, normocephalic, pupils reactive, negative for conjunctival pallor or scleral icterus, mucous membranes moist, throat clear, neck supple, nontender, trachea midline. Lungs: Clear to auscultation, breath sounds equal bilaterally, chest with left anterior upper chest wall tenderness with deep palpation but no crepitus or defects is appreciated Heart: S1S2, regular, negative for clicks, rubs, or JVD. Abdomen: Soft, nondistended, nontender. Negative for masses or hepatosplenomegaly. Negative for costovertebral tenderness. Pelvis: Stable nontender. Genitourinary: Deferred. Rectal: Deferred. Extremities: Atraumatic, negative for cords or calf pain. Neurovascular unremarkable. No pedal edema or leg asymmetry Neuro: Awake, alert, oriented. Cranial nerves II through XII unremarkable. Cerebellum unremarkable. Motor and sensory unremarkable throughout. Exam nonfocal. Diagnostics: EKG chest x-ray CBC CMP INR troponin Therapeutics: IV O2 monitor, aspirin and sublingual nitroglycerin Nitropaste Dilaudid Zofran Lovenox After 3 sublingual nitroglycerin the pain has been unchanged and the patient still says it's 9/10. I will place nitro paste and give him a dose of Dilaudid as there is some reproducibility to this Patient had some vomiting after medications so Zofran was prescribed I did review the prior admission at the beginning of September and he presented with very similar symptoms to which she has today. At that time he did not respond to nitroglycerin and had a negative workup. Since that time he has had a stress test, Carmen scan, and an echo which can be reviewed by the hospitalist. The patient will be admitted due to his significant history and I will also give him a dose of Lovenox. The case was discussed with Dr. Isbell at 1005 and he accepts the patient for admission and agrees with the care plan of Nitropaste Lovenox and further management. I discussed his admission with the patient as well he is agreeable Impression: Atypical chest pain with history of same Definitive disposition and diagnosis as appropriate pending reevaluation and review of above. Anterior Chest Pain Score (Numeric/FACES): 8 - Related Data Allergies Allergy/AdvReac Type Severity Reaction Status Date / Time No Known Allergies Allergy Verified 11/22/16 09:03 Home Meds: Home Meds Aspirin [Halfprin] 81 mg PO DAILY 09/22/16 [History] Carvedilol 3.125 mg PO BID 09/22/16 [History] Isosorbide Mononitrate [Imdur] 30 mg PO DAILY 09/22/16 [History] Morphine [MS Contin] 15 mg PO Q12HR 09/22/16 [History] Pantoprazole [ProTONIX] 40 mg PO ACBREAKFAST 09/22/16 [History] Pravastatin [Pravachol] 40 mg PO DAILY 09/22/16 [History] Sennosides [Senokot] 8.6 mg PO BID PRN 09/22/16 [History] amLODIPine [Norvasc] 5 mg PO BID 09/22/16 [History] Nitroglycerin [Nitrostat] 0.4 mg SL Q5M PRN 11/22/16 [History] oxyCODONE HCl/Acetaminophen [oxyCODONE-Acetaminophen 5-325] 1 tab PO Q6H [History] Past Medical History HEENT History: Reports: None Cardiovascular History: Reports: High Cholesterol, Hypertension, SD, Stents Respiratory History: Reports: None Gastrointestinal History: Reports: None Genitourinary History: Reports: None Musculoskeletal History: Reports: None Neurological History: Reports: None Psychiatric History: Reports: None Endocrine/Metabolic History: Reports: None Hematologic History: Reports: None Immunologic History: Reports: None Oncologic (Cancer) History: Reports: None Dermatologic History: Reports: None - Infectious Disease History Infectious Disease History: Reports: None - Past Surgical History Head Surgeries/Procedures: Reports: None HEENT Surgical History: Reports: Tonsillectomy, Other (See Below) Other HEENT Surgeries/Procedures: Dental extraction. Throat Surgery Cardiovascular Surgical History: Reports: Coronary Artery Stent Respiratory Surgical History: Reports: None GI Surgical History: Reports: Cholecystectomy Male Surgical History: Reports: None Endocrine Surgical History: Reports: None Musculoskeletal Surgical History: Reports: None Oncologic Surgical History: Reports: None Dermatological Surgical History: Reports: None Social & Family History - Family History Family Medical History: Noncontributory - Tobacco Use Smoking Status *Q: Never Smoker Second Hand Smoke Exposure: No - Caffeine Use Caffeine Use: Reports: Coffee - Alcohol Use Days Per Week of Alcohol Use: 7 Number of Drinks Per Day: 7 Total Drinks Per Week: 49 - Recreational Drug Use Recreational Drug Use: No - Living Situation & Occupation Living situation: Reports: Occupation: Retired ED [facility] - Review of Systems Review Of Systems: ROS reveals no pertinent complaints other than HPI. ED EXAM, GENERAL - Physical Exam Exam: See Below (See dictation) Course - Vital Signs Last Recorded V/S: Last Vital Signs Temp 36.6 C 11/22/16 09:03 Pulse 58 L 11/22/16 10:01 Resp 16 11/22/16 10:01 BP 112/79 11/22/16 10:01 Pulse Ox 100 11/22/16 10:01 - Orders/Labs/Meds Orders: Active Orders 24 hr Category Date Time Status Cardiac Monitoring [RC] . DIRECTED Care 11/22/16 09:09 Active EKG Documentation Completion [RC] STAT Care 11/22/16 09:09 Active Oxygen Therapy, ED [RC] ASDIRECTED Care 11/22/16 09:09 Active Pulse Oximetry [RC] ASDIRECTED Care 11/22/16 09:09 Active Sodium Chloride 0.9% [Saline Flush] Med 11/22/16 09:10 Active 10 ml FLUSH ASDIRECTED PRN Sodium Chloride 0.9% [Saline Flush] Med 11/22/16 09:10 Active 2.5 ml FLUSH ASDIRECTED PRN Saline Lock Insert [OM.PC] Stat Oth 11/22/16 09:09 Ordered Medication Orders Sodium Chloride (Saline Flush) 10 ml FLUSH ASDIRECTED PRN PRN Reason: Keep Vein Open Last Admin: 11/22/16 09:48 Dose: 10 ml Sodium Chloride (Saline Flush) 2.5 ml FLUSH ASDIRECTED PRN PRN Reason: Keep Vein Open Last Admin: 11/22/16 09:48 Dose: 2.5 ml Labs: Laboratory Tests 11/22/16 11/22/16 11/22/16 Range/Units 09:05 09:05 09:05 WBC 7.16 (4.0-11.0) K/uL RBC 4.90 (4.50-5.90) M/uL Hgb 14.0 (13.0-17.0) g/dL Hct 42.4 (38.0-50.0) % MCV 86.5 (80.0-98.0) fL MCH 28.6 (27.0-32.0) pg MCHC 33.0 (31.0-37.0) g/dL RDW Std Deviation 47.7 (28.0-62.0) fl RDW Coeff of Ethan 15 (11.0-15.0) % Plt Count 232 (150-400) K/uL MPV 9.90 (7.40-12.00) fL Neut % (Auto) 50.7 (48.0-80.0) % Lymph % (Auto) 33.9 (16.0-40.0) % [place] % (Auto) 12.4 (0.0-15.0) % Eos % (Auto) 2.7 (0.0-7.0) % Baso % (Auto) 0.3 (0.0-1.5) % Neut # (Auto) 3.6 (1.4-5.7) K/uL Lymph # (Auto) 2.4 (0.6-2.4) K/uL [place] # (Auto) 0.9 H (0.0-0.8) K/uL Eos # (Auto) 0.2 (0.0-0.7) K/uL Baso # (Auto) 0.0 (0.0-0.1) K/uL Nucleated RBC % 0.0 /100WBC Nucleated RBCs # 0 K/uL INR 0.97 (0.86-1.11) Sodium 141 (136-146) mmol/L Potassium 4.0 (3.5-5.1) mmol/L Chloride 106 (98-110) mmol/L Carbon Dioxide 24 (21-31) mmol/L BUN 18 (6.0-23.0) mg/dL Creatinine 0.8 (0.6-1.5) mg/dL Est Cr Clr Drug Dosing 81.48 mL/min Estimated GFR (MDRD) > 60.0 ml/min Glucose 133 H (60-110) mg/dL Calcium 9.5 (8.8-10.8) mg/dL Total Bilirubin 0.7 (0.1-1.5) mg/dL AST 21 (5-40) IU/L ALT 12 (8-54) IU/L Alkaline Phosphatase 75 (40-150) Troponin I (0.0-0.29) NG/ML Total Protein 8.1 H (6.0-8.0) g/dL Albumin 4.5 (3.4-4.8) g/dL Globulin 3.6 H (2.0-3.5) g/dL Albumin/Globulin Ratio 1.3 (1.3-2.8) 11/22/16 Range/Units 09:05 WBC (4.0-11.0) K/uL RBC (4.50-5.90) M/uL Hgb (13.0-17.0) g/dL Hct (38.0-50.0) % MCV (80.0-98.0) fL MCH (27.0-32.0) pg MCHC (31.0-37.0) g/dL RDW Std Deviation (28.0-62.0) fl RDW Coeff of Ethan (11.0-15.0) % Plt Count (150-400) K/uL MPV (7.40-12.00) fL Neut % (Auto) (48.0-80.0) % Lymph % (Auto) (16.0-40.0) % [place] % (Auto) (0.0-15.0) % Eos % (Auto) (0.0-7.0) % Baso % (Auto) (0.0-1.5) % Neut # (Auto) (1.4-5.7) K/uL Lymph # (Auto) (0.6-2.4) K/uL [place] # (Auto) (0.0-0.8) K/uL Eos # (Auto) (0.0-0.7) K/uL Baso # (Auto) (0.0-0.1) K/uL Nucleated RBC % /100WBC Nucleated RBCs # K/uL INR (0.86-1.11) Sodium (136-146) mmol/L Potassium (3.5-5.1) mmol/L Chloride (98-110) mmol/L Carbon Dioxide (21-31) mmol/L BUN (6.0-23.0) mg/dL Creatinine (0.6-1.5) mg/dL Est Cr Clr Drug Dosing mL/min Estimated GFR (MDRD) ml/min Glucose (60-110) mg/dL Calcium (8.8-10.8) mg/dL Total Bilirubin (0.1-1.5) mg/dL AST (5-40) IU/L ALT (8-54) IU/L Alkaline Phosphatase (40-150) Troponin I < 0.10 (0.0-0.29) NG/ML Total Protein (6.0-8.0) g/dL Albumin (3.4-4.8) g/dL Globulin (2.0-3.5) g/dL Albumin/Globulin Ratio (1.3-2.8) Meds: Medications Generic Name Dose Route Start Last Admin Trade Name Freq PRN Reason Stop Dose Admin Sodium Chloride 10 ml 11/22/16 09:10 11/22/16 09:48 Saline Flush FLUSH 10 ml ASDIRECTED PRN Administration Keep Vein Open Sodium Chloride 2.5 ml 11/22/16 09:10 11/22/16 09:48 Saline Flush FLUSH 2.5 ml ASDIRECTED PRN Administration Keep Vein Open Discontinued Medications Generic Name Dose Route Start Last Admin Trade Name Freq PRN Reason Stop Dose Admin Aspirin 324 mg 11/22/16 09:10 11/22/16 09:18 Aspirin PO 11/22/16 09:11 324 mg ONETIME ONE Administration Hydromorphone HCl 1 mg 11/22/16 09:42 11/22/16 09:46 Dilaudid IVPUSH 11/22/16 09:43 1 mg ONETIME ONE Administration Nitroglycerin 0.4 mg 11/22/16 09:15 11/22/16 09:32 Nitrostat SL 11/22/16 09:26 0.4 mg Q5M ERICK Administration Nitroglycerin 1 gm 11/22/16 09:42 11/22/16 09:45 Nitro-Bid 2% TOP 11/22/16 09:43 1 gm ONETIME ONE Administration Ondansetron HCl 4 mg 11/22/16 10:00 Zofran IVPUSH 11/22/16 10:01 ONETIME ONE Departure - Departure Time of Disposition: 10:10 Disposition: Refer to Observation Condition: Good Clinical Impression: Atypical chest pain - Discharge Information Forms: ED Department Discharge - My Orders Last 24 Hours: My Active Orders 11/22/16 09:09 Cardiac Monitoring [RC] . DIRECTED EKG Documentation Completion [RC] STAT Oxygen Therapy, ED [RC] ASDIRECTED Pulse Oximetry [RC] ASDIRECTED Saline Lock Insert [OM.PC] Stat 11/22/16 09:10 Sodium Chloride 0.9% [Saline Flush] 10 ml FLUSH ASDIRECTED PRN Sodium Chloride 0.9% [Saline Flush] 2.5 ml FLUSH ASDIRECTED PRN - Assessment/Plan Last 24 Hours: My Active Orders 11/22/16 09:09 Cardiac Monitoring [RC] . DIRECTED EKG Documentation Completion [RC] STAT Oxygen Therapy, ED [RC] ASDIRECTED Pulse Oximetry [RC] ASDIRECTED Saline Lock Insert [OM.PC] Stat 11/22/16 09:10 Sodium Chloride 0.9% [Saline Flush] 10 ml FLUSH ASDIRECTED PRN Sodium Chloride 0.9% [Saline Flush] 2.5 ml FLUSH ASDIRECTED PRN
[2016-11-22] MEDS ORDERED: HYDROmorphone 2 MG/ML Syringe IVPUSH ONE (09:42)
[2016-11-22] MEDS ORDERED: Nitroglycerin 2% Oint 1 GM UD Packet TOP ONE (09:42)
[2016-11-22 09:43] LABS: CHLORIDE,CL 106 mmol/L (98-110); SODIUM,NA 141 mmol/L (136-146)
--- NOTE | 2016-11-22 09:59 | CR ---
EXAMINATION: Portable chest radiograph. HISTORY: Shortness of breath. FINDINGS: The trachea is midline. The cardiomediastinal silhouette is within normal limits. No pulmonary infil trates, effusions or pneumothorax. Mild interstitial prominence. Osseous structures appear unremarkable. IMPRESSION: No acute cardiopulmonary process.
[2016-11-22] MEDS ORDERED: Ondansetron 4 MG/2 ML SDV IVPUSH ONE (10:00)
[2016-11-22] MEDS ORDERED: Enoxaparin 100 MG/1 ML Syringe SUBCUT ONE (10:11)
[2016-11-22] MEDS ORDERED: Morphine 2 MG/ML Syringe IVPUSH ONE ×2 (11:40→17:05)
[2016-11-22] MEDS ORDERED: Nitroglycerin 0.4 MG Tab.SL SL PRN ×2 (12:32→14:09)
[2016-11-22] MEDS ORDERED: Morphine 15 MG Tab.ER PO PRN (17:07)
--- NOTE | 2016-11-22 17:47 | PCM.HP ---
H&P History of Present Illness - General Date of Service: 11/22/16 Admit Problem/Dx: Admission Diagnosis/Problem Admission Diagnosis/Problem Atypical chest pain Source of Information: Patient - History of Present Illness Initial Comments - Free Text/Narative: This is a 71-year-old male who is presenting secondary to acute chest pain which started last night. Patient states that the chest pain is sharp in nature 7 out of 10. Point on the left midclavicular third to fourth intercostal space. She does have a significant past medical history of ischemic dilated cardiomyopathy, hypercholesterolemia, coronary artery disease with stent placement as well as NV, hypertension, history of chest pain for which she is on opioid medication, and a low ejection fraction 35%. Patient was recently assessed by cardiology for acute chest pain however no recent NV event was noted previously. On ER when patient was admitted ECG showed a previous ST depression but no acute current cardiac changes. Patient's troponin level and MAYTE was normal. However a son the patient's past medical history the decision was made to admit the patient for cardiac rule out. Patient states that the chest pain which is sharp in nature is nonradiating does not radiate to the back nor down the arm. Patient denies any episodes of vomiting does state that he did have some nausea as well as dizziness last night. Patient denies any syncopal episodes or any heart palpitations or any other symptomatology. Patient denies any recent illness any recent fever. Patient states that the pain started while he was laying down around 6 PM last night. Patient states prior to that around noon he did go for a bike ride but did not have any pain secondary to that. Patient states that he took sublingual nitroglycerin that he was prescribed as well as his pain medication but nothing seemed to help. And as a result he came to the ER. Onset of Symptoms: Reports: Sudden Quality: Reports: Sharp Associated Symptoms: Reports: Nausea/Vomiting Anterior Chest Pain Score (Numeric/FACES): 7 - Related Data Allergies/Adverse Reactions: Allergies Allergy/AdvReac Type Severity Reaction Status Date / Time No Known Allergies Allergy Verified 11/22/16 09:03 Home Medications: Home Meds Aspirin [Halfprin] 81 mg PO DAILY 09/22/16 [History] Carvedilol 3.125 mg PO BID 09/22/16 [History] Isosorbide Mononitrate [Imdur] 30 mg PO DAILY 09/22/16 [History] Morphine [MS Contin] 15 mg PO Q12HR PRN 09/22/16 [History] Pantoprazole [ProTONIX] 40 mg PO ACBREAKFAST 09/22/16 [History] Pravastatin [Pravachol] 40 mg PO DAILY 09/22/16 [History] Sennosides [Senokot] 8.6 mg PO BID PRN 09/22/16 [History] amLODIPine [Norvasc] 5 mg PO BID 09/22/16 [History] Nitroglycerin [Nitrostat] 0.4 mg SL Q5M PRN 11/22/16 [History] oxyCODONE HCl/Acetaminophen [oxyCODONE-Acetaminophen 5-325] 1 tab PO Q6H PRN 11/01 [History] Past Medical History HEENT History: Reports: None Cardiovascular History: Reports: High Cholesterol, Hypertension, NV, Stents Respiratory History: Reports: None Gastrointestinal History: Reports: None Genitourinary History: Reports: None Musculoskeletal History: Reports: None Neurological History: Reports: None Psychiatric History: Reports: None Endocrine/Metabolic History: Reports: None Hematologic History: Reports: None Immunologic History: Reports: None Oncologic (Cancer) History: Reports: None Dermatologic History: Reports: None - Infectious Disease History Infectious Disease History: Reports: None - Past Surgical History Head Surgeries/Procedures: Reports: None HEENT Surgical History: Reports: Tonsillectomy, Other (See Below) Other HEENT Surgeries/Procedures: Dental extraction. Throat Surgery Cardiovascular Surgical History: Reports: Coronary Artery Stent Respiratory Surgical History: Reports: None Male Surgical History: Reports: None Endocrine Surgical History: Reports: None Musculoskeletal Surgical History: Reports: None Oncologic Surgical History: Reports: None Dermatological Surgical History: Reports: None Social & Family History - Family History Family Medical History: Noncontributory Cardiac: Reports: NV Respiratory: Reports: None Endocrine/Metabolic: Reports: Diabetes, Type I Hematologic: Reports: None Oncologic: Reports: Other (See Below) Other Oncologic Family History: Father side has cancer but patient doesn't know exactly what kind of CA - Tobacco Use Smoking Status *Q: Former Smoker Used Tobacco, but Quit: No Month Tobacco Last Used: 2009 Second Hand Smoke Exposure: Yes - Caffeine Use Caffeine Use: Reports: Soda - Alcohol Use Days Per Week of Alcohol Use: 1 Number of Drinks Per Day: 2 Total Drinks Per Week: 2 Date of Last Drink: 11/21/16 Time of Last Drink: 14:00 - Recreational Drug Use Recreational Drug Use: No - Living Situation & Occupation Living situation: Reports: Occupation: Retired H&P Review of Systems - Review of Systems: Review Of Systems: ROS reveals no pertinent complaints other than HPI. Exam - Exam Exam: See Below - Vital Signs Vital Signs: Last Vital Signs Temp 36.8 C 11/22/16 16:00 Pulse 58 L 11/22/16 16:00 Resp 18 11/22/16 16:00 BP 102/65 11/22/16 16:00 Pulse Ox 98 11/22/16 16:00 Weight: 69.581 kg - Exam Quality Assessment: Supplemental Oxygen General: Alert, Cooperative, Mild Distress HEENT: Conjunctiva Clear, EOMI, Nares Patent Neck: Supple, Trachea Midline Lungs: Clear to Auscultation, Normal Respiratory Effort Cardiovascular: Regular Rate, Regular Rhythm (Pain midclavicular line third to fourth intercostal space on palpation which is reproducible. Pain is not reproducible based on change of position) GI/Abdominal Exam: Normal Bowel Sounds, Soft, Non-Tender, No Organomegaly Back Exam: Normal Inspection Extremities: Normal Inspection, Normal Range of Motion, No Pedal Edema Skin: Warm, Dry Neuro Extensive - Mental Status: Alert, Oriented x3 - Patient Data Lab Results Last 24 hrs: Laboratory Results - last 24 hr 11/22/16 Range/Units 15:07 Troponin I < 0.10 (0.0-0.29) NG/ML Result Diagrams: 11/22/16 09:05 11/22/16 09:05 EKG INTERPRETATION Rhythm: NSR Comparison: No Change (ECG shows old ST depression) *Q Meaningful Use (ADM) - VTE *Q VTE Criteria *Q: - Stroke *Q Stroke Criteria *Q: - AMI *Q AMI Criteria *Q: - Problem List (1) Atypical chest pain SNOMED Code(s): 022805748 ICD Code: R07.89 - OTHER CHEST PAIN Status: Acute Priority: High Current Visit: Yes (2) HTN (hypertension) SNOMED Code(s): 87554097 ICD Code: I10 - ESSENTIAL (PRIMARY) HYPERTENSION Status: Chronic Priority : Medium Current Visit: No Qualifiers: Hypertension type: essential hypertension Qualified Code(s): I10 - Essential (primary) hypertension (3) History of coronary artery stent placement SNOMED Code(s): 833244661, 166425763 ICD Code: Z95.5 - PRESENCE OF CORONARY ANGIOPLASTY IMPLANT AND GRAFT Status : Chronic Priority: Medium Current Visit: No (4) Hyperlipidemia SNOMED Code(s): 58805066 ICD Code: E78.5 - HYPERLIPIDEMIA, UNSPECIFIED Status: Chronic Priority: Medium Current Visit: No Qualifiers: Hyperlipidemia type: unspecified Qualified Code(s): E78.5 - Hyperlipidemia , unspecified Problem List Initiated/Reviewed/Updated: Yes Orders Last 24hrs: Active Orders 24 hr Category Date Time Status Patient Status [ADT] Routine ADT 11/22/16 12:32 Active Communication Order [RC] ROUTINE Care 11/22/16 16:40 Active Height and Weight [RC] UPON Care 11/22/16 12:32 Active Intake and Output [RC] Q12H Care 11/22/16 12:39 Active May Shower [RC] ASDIRECTED Care 11/22/16 12:32 Active Notify Provider Vital Signs [RC] ASDIRECTED Care 11/22/16 12:40 Active Oxygen Therapy [RC] PRN Care 11/22/16 12:32 Active Telemetry Monitoring [Cardiac Monitoring] [RC] . Care 11/22/16 11:38 Active DIRECTED Up With Assistance [RC] ASDIRECTED Care 11/22/16 12:32 Active VTE/DVT Education [RC] PER UNIT ROUTINE Care 11/22/16 12:32 Active Vital Signs [RC] Q4H Care 11/22/16 12:32 Active 2 Gram Sodium Diet [DIET] Diet 11/22/16 Breakfast Active BASIC METABOLIC PANEL,BMP [CHEM] AM Lab 11/23/16 05:11 Ordered CBC WITH AUTO DIFF [HEME] AM Lab 11/23/16 05:11 Ordered TROPONIN I [CHEM] Q6H Lab 11/22/16 21:00 Ordered Acetaminophen/oxyCODONE [Percocet 325-5 MG] Med 11/22/16 17:07 Ordered 1 tab PO Q6H PRN Aspirin [Halfprin] Med 11/23/16 09:00 Active 81 mg PO DAILY Carvedilol [Coreg] Med 11/22/16 21:00 Active 3.125 mg PO BID Enoxaparin [Lovenox] Med 11/23/16 09:00 Active 40 mg SUBCUT DAILY Morphine [MS Contin] Med 11/22/16 17:07 Ordered 15 mg PO Q12HR PRN Pantoprazole [ProTONIX] Med 11/23/16 07:30 Active 40 mg PO ACBREAKFAST Pravastatin [Pravachol] Med 11/23/16 09:00 Active 40 mg PO DAILY Sodium Chloride 0.9% [Saline Flush] Med 11/22/16 12:32 Active 10 ml FLUSH ASDIRECTED PRN Sodium Chloride 0.9% [Saline Flush] Med 11/22/16 12:32 Active 2.5 ml FLUSH ASDIRECTED PRN amLODIPine [Norvasc] Med 11/22/16 21:00 Active 5 mg PO BID Peripheral IV Insertion Adult [OM.PC] Routine Oth 11/22/16 12:32 Ordered Resuscitation Status Routine Resus Stat 11/22/16 12:32 Ordered Medication Orders Amlodipine Besylate (Norvasc) 5 mg PO BID [facility] Aspirin (Halfprin) 81 mg PO DAILY [facility] Carvedilol (Coreg) 3.125 mg PO BID [facility] Enoxaparin Sodium (Lovenox) 40 mg SUBCUT DAILY [facility] Morphine Sulfate (Ms Contin) 15 mg PO Q12HR PRN PRN Reason: Pain Oxycodone/Acetaminophen (Percocet 325-5 Mg) 1 tab PO Q6H PRN PRN Reason: Pain (mild 1-3) Pantoprazole Sodium (Protonix) 40 mg PO ACBREAKFAST ERICK Pravastatin Sodium (Pravachol) 40 mg PO DAILY [facility] Sodium Chloride (Saline Flush) 10 ml FLUSH ASDIRECTED PRN PRN Reason: Keep Vein Open Last Admin: 11/22/16 09:48 Dose: 10 ml Sodium Chloride (Saline Flush) 2.5 ml FLUSH ASDIRECTED PRN PRN Reason: Keep Vein Open Last Admin: 11/22/16 09:48 Dose: 2.5 ml Sodium Chloride (Saline Flush) 10 ml FLUSH ASDIRECTED PRN PRN Reason: Keep Vein Open Sodium Chloride (Saline Flush) 2.5 ml FLUSH ASDIRECTED PRN PRN Reason: Keep Vein Open Assessment/Plan Comment:: Assessment/plan: #1. Acute chest pain reproducible in nature, sharp primarily on left side midclavicular line 3-4 with intercostal space region -The patient'sn ECG shows old ST depression likely from old NV. Patient does have a history of cardiac stents as a result we will be getting the patient's troponins every 6 hours. Order has been placed also for when necessary ECG with any change/new onset chest pain. Pain will be controlled with sublingual nitroglycerin when necessary and possible morphine 1 mg IV push when necessary as the patient is on opioid medication for his acute chest pain. -We shall consider cardiology consult if cardiac related enzymes are elevated or if we see a new change in the ECG. -Patient provided ACS symptoms have been ruled out shall be discharged tomorrow with follow-up with cardiology in an outpatient setting. #2. Patient shall be under observation status less than 2 midnights
[2016-11-22] MEDS: Carvedilol 3.125 MG Tab PO SCH (21:07)
[2016-11-22] MEDS: amLODIPine 5 MG Tab PO SCH (21:59)
[2016-11-22] MEDS: Acetaminophen/oxyCODONE 325-5 MG Tab PO PRN (22:42)
[2016-11-23 05:38] LABS: CHLORIDE,CL 106 mmol/L (98-110); SODIUM,NA 141 mmol/L (136-146)
[2016-11-23] MEDS: Acetaminophen/oxyCODONE 325-5 MG Tab PO PRN (06:54)
[2016-11-23] MEDS ORDERED: Pantoprazole 40 MG Tab.CR PO SCH (07:30)
[2016-11-23] MEDS ORDERED: Enoxaparin 40 MG/0.4 ML Syringe SUBCUT SCH (09:00)
[2016-11-23] MEDS ORDERED: Pravastatin 40 MG Tab PO SCH (09:00)
[2016-11-23] MEDS ORDERED: Aspirin 81 MG Tab.EC PO SCH (09:00)
[2016-11-23] MEDS: Carvedilol 3.125 MG Tab PO SCH (09:43)
[2016-11-23] MEDS: amLODIPine 5 MG Tab PO SCH (09:43)
[2016-11-23 13:41] VITALS: BP 97/55
--- NOTE | 2016-11-29 16:36 | PCM.DCSUM1 ---
Discharge Summary - Hospital Course Free Text/Narrative:: Discharge Summary Date of admission: 11/22/2016 Date of discharge: 11/23/2016 Admitting diagnosis: #1. Acute chest pain reproducible in nature sharp primarily on the left side rule out acute coronary syndrome #2. #3. #4. #5. Discharge diagnoses: #1. Acute coronary syndrome ruled out- chest pain secondary most likely to costochondritis this versus musculoskeletal versus gastroesophageal reflux #2. #3. #4. #5. Consultations: None Procedures: None Hospitalization course: Patient was admitted under observation secondary to acute chest pain for acute coronary syndrome rule out. He had a significant past medical history of an [place] with stenting. Patient's troponins were negative 3. Patient had no further chest pain. Patient's vital signs were stable throughout his stay. Patient was started on lisinopril 2.5 mg for hypertension. She was stable and wanted to go home after troponins were negative 3. Disposition on discharge: Home Condition on discharge: Stable, able to tolerate by mouth, no nausea vomiting diarrhea or constipation, not in any chest pain, troponins negative 3 Discharge medications: Continuation of home medication along with lisinopril 2.5 mg Follow-up instructions: Follow-up with primary care physician as well as cardiology - Discharge Data Discharge Date: 11/23/16 Discharge Disposition: Home, Self-Care 01 Condition: Good - Discharge Diagnosis/Problem(s) (1) Atypical chest pain SNOMED Code(s): 844893404 ICD Code: R07.89 - OTHER CHEST PAIN Status: Acute Priority: High (2) HTN (hypertension) SNOMED Code(s): 94223911 ICD Code: I10 - ESSENTIAL (PRIMARY) HYPERTENSION Status: Chronic Priority : Medium Qualifiers: Hypertension type: essential hypertension Qualified Code(s): I10 - Essential (primary) hypertension (3) History of coronary artery stent placement SNOMED Code(s): 882078653, 869775376 ICD Code: Z95.5 - PRESENCE OF CORONARY ANGIOPLASTY IMPLANT AND GRAFT Status : Chronic Priority: Medium (4) Hyperlipidemia SNOMED Code(s): 75989589 ICD Code: E78.5 - HYPERLIPIDEMIA, UNSPECIFIED Status: Chronic Priority: Medium Qualifiers: Hyperlipidemia type: unspecified Qualified Code(s): E78.5 - Hyperlipidemia , unspecified - Patient Instructions Diet: Heart Healthy Diet Activity: Rest and Relax Today Driving: Do Not Drive Showering/Bathing: May Shower Notify Provider of: Fever, Increased Pain, Swelling and Redness, Drainage, Nausea and/or Vomiting - Discharge Plan Prescriptions/Med Rec: Lisinopril 2.5 mg PO DAILY #30 tablet Home Medications: Home Meds Aspirin [Halfprin] 81 mg PO DAILY 09/22/16 [History] Carvedilol 3.125 mg PO BID 09/22/16 [History] Isosorbide Mononitrate [Imdur] 30 mg PO DAILY 09/22/16 [History] Morphine [MS Contin] 15 mg PO Q12HR PRN 09/22/16 [History] Pantoprazole [ProTONIX] 40 mg PO ACBREAKFAST 09/22/16 [History] Pravastatin [Pravachol] 40 mg PO DAILY 09/22/16 [History] Sennosides [Senokot] 8.6 mg PO BID PRN 09/22/16 [History] amLODIPine [Norvasc] 5 mg PO BID 09/22/16 [History] Nitroglycerin [Nitrostat] 0.4 mg SL Q5M PRN 11/22/16 [History] oxyCODONE HCl/Acetaminophen [oxyCODONE-Acetaminophen 5-325] 1 tab PO Q6H PRN 11/01 [History] Lisinopril 2.5 mg PO DAILY #30 tablet 11/23/16 [Rx] Patient Handouts: Nonspecific Chest Pain, [id number], Lisinopril tablets Referrals: Bo Lopez MD [Physician] - 11/30/16 2:00 pm Eliane Jang NP [Nurse Practitioner] - 11/30/16 10:30 am - Discharge Summary/Plan Comment DC Time >30 min.: No - Patient Data Vitals - Most Recent: Last Vital Signs Temp 36.2 C 11/23/16 11:30 Pulse 57 L 11/23/16 11:30 Resp 22 H 11/23/16 11:30 BP 97/55 L 11/23/16 11:30 Pulse Ox 91 L 11/23/16 12:32 Weight - Most Recent: 69.581 kg Med Orders - Current: Current Medications Discontinued Medications Amlodipine Besylate (Norvasc) 5 mg PO BID ERICK Last Admin: 11/23/16 09:43 Dose: Not Given Aspirin (Aspirin) 324 mg PO ONETIME ONE Stop: 11/22/16 09:11 Last Admin: 11/22/16 09:18 Dose: 324 mg Aspirin (Halfprin) 81 mg PO DAILY [facility] Last Admin: 11/23/16 09:33 Dose: 81 mg Carvedilol (Coreg) 3.125 mg PO BID [facility] Last Admin: 11/23/16 09:43 Dose: Not Given Enoxaparin Sodium (Lovenox) 75 mg SUBCUT ONETIME ONE Stop: 11/22/16 10:12 Last Admin: 11/22/16 10:46 Dose: 75 mg Enoxaparin Sodium (Lovenox) 40 mg SUBCUT DAILY [facility] Last Admin: 11/23/16 09:44 Dose: 40 mg Hydromorphone HCl (Dilaudid) 1 mg IVPUSH ONETIME ONE Stop: 11/22/16 09:43 Last Admin: 11/22/16 09:46 Dose: 1 mg Morphine Sulfate (Morphine) 1 mg IVPUSH ONETIME ONE Stop: 11/22/16 11:41 Last Admin: 11/22/16 12:08 Dose: 1 mg Morphine Sulfate (Morphine) 1 mg IVPUSH ONETIME ONE Stop: 11/22/16 17:06 Last Admin: 11/22/16 17:30 Dose: 1 mg Morphine Sulfate (Ms Contin) 15 mg PO Q12HR PRN PRN Reason: Pain Last Admin: 11/22/16 21:07 Dose: 15 mg Nitroglycerin (Nitrostat) 0.4 mg SL Q5M [facility] Stop: 11/22/16 09:26 Last Admin: 11/22/16 09:32 Dose: 0.4 mg Nitroglycerin (Nitro-Bid 2%) 1 gm TOP ONETIME ONE Stop: 11/22/16 09:43 Last Admin: 11/22/16 09:45 Dose: 1 gm Nitroglycerin (Nitrostat) 0.4 mg SL Q5M PRN PRN Reason: Chest Pain Stop: 11/22/16 12:43 Nitroglycerin (Nitrostat) 0.4 mg SL Q5M PRN PRN Reason: Chest Pain Stop: 11/22/16 14:20 Ondansetron HCl (Zofran) 4 mg IVPUSH ONETIME ONE Stop: 11/22/16 10:01 Last Admin: 11/22/16 10:13 Dose: 4 mg Oxycodone/Acetaminophen (Percocet 325-5 Mg) 1 tab PO Q6H PRN PRN Reason: Pain (mild 1-3) Last Admin: 11/23/16 06:54 Dose: 1 tab Pantoprazole Sodium (Protonix) 40 mg PO ACBREAKFAST ERICK Last Admin: 11/23/16 06:54 Dose: 40 mg Pravastatin Sodium (Pravachol) 40 mg PO DAILY [facility] Last Admin: 11/23/16 09:33 Dose: 40 mg Sodium Chloride (Saline Flush) 10 ml FLUSH ASDIRECTED PRN PRN Reason: Keep Vein Open Last Admin: 11/22/16 09:48 Dose: 10 ml Sodium Chloride (Saline Flush) 2.5 ml FLUSH ASDIRECTED PRN PRN Reason: Keep Vein Open Last Admin: 11/22/16 09:48 Dose: 2.5 ml Sodium Chloride (Saline Flush) 10 ml FLUSH ASDIRECTED PRN PRN Reason: Keep Vein Open Sodium Chloride (Saline Flush) 2.5 ml FLUSH ASDIRECTED PRN PRN Reason: Keep Vein Open *Q Meaningful Use (DIS) - VTE *Q VTE Criteria *Q: - Stroke *Q Stroke Criteria *Q: - AMI *Q AMI Criteria *Q:
== END 2016-11-23 12:35 | disposition home or self-care (01) ==
LOC: MW.ED 08:58 → MW.MS 10:11
PROVIDERS: ADMIT Internal Medicine; ATTEND Internal Medicine
DX: R07.89 Other chest pain (principal); I25.5 Ischemic cardiomyopathy; I42.0 Dilated cardiomyopathy; I10 Essential (primary) hypertension; I25.2 Old myocardial infarction; I25.10 Atherosclerotic heart disease of native coronary artery without angina pectoris; E78.5 Hyperlipidemia, unspecified; E78.00 Pure hypercholesterolemia, unspecified; Z79.82 Long term (current) use of aspirin; Z79.899 Other long term (current) drug therapy; Z95.5 Presence of coronary angioplasty implant and graft; Z90.49 Acquired absence of other specified parts of digestive tract; Z90.89 Acquired absence of other organs; Z98.890 Other specified postprocedural states; Z87.891 Personal history of nicotine dependence; Z82.49 Family history of ischemic heart disease and other diseases of the circulatory system; G89.29 Other chronic pain; I11.9 Hypertensive heart disease without heart failure
CPT/HCPCS: 36415; 71010; 80048; 80053; 83735; 84484; 85025; 85610; 93005; 96372; 96374; 96375; 96376; 99285; A9270; G0378; G0480; J1170; J1650; J2270; J2405; 99283

== ENCOUNTER 2016-11-23 18:59 | Emergency (ER) | payer MEDICARE, MEDICAID ==
[2016-11-23] MEDS ORDERED: Sodium Chloride 0.9% 10 ML Syringe FLUSH PRN (19:11)
[2016-11-23] MEDS ORDERED: Sodium Chloride 0.9% 2.5 ML Syringe FLUSH PRN (19:11)
[2016-11-23] MEDS ORDERED: Aspirin 81 MG Tab.Chew PO ONE (19:12)
--- NOTE | 2016-11-23 19:16 | EDM.PDOC ---
ED HPI GENERAL MEDICAL PROBLEM - General Chief Complaint: Chest Pain Stated Complaint: CHEST PAIN Time Seen by Provider: 11/23/16 19:07 - History of Present Illness INITIAL COMMENTS - FREE TEXT/NARRATIVE: HISTORY AND PHYSICAL: History of present illness: The patient is a 71-year-old male with a history of ischemic dilated cardiomyopathy hypercholesterolemia coronary artery disease with stent in the past hypertension and chest pain which has been treated with opioid medications and he was just discharged from an admission here several hours ago and referred present with the same chest pain. He says that when he was discharged he felt fine he went home and the pain came back. It is in the same location in the left upper chest wall does not radiate and he says he took his medications when he got home. Patient has a history of scan done on October 29 which revealed an EF of 38% and an old inferior defect but no evidence for new ischemic changes. Echocardiogram done in mid September and as I said he was admitted here for 24-hour observation and was just discharged 5 hours ago. Patient says this is typical of his pain and he has no vomiting no abdominal pain and no other systemic complaints. He's had no trauma. Patient does have a history of alcohol use which he declines but is well documented in the computer as well as on my prior encounters with him. He says he did not drink when he got home. Review of systems: As per history of present illness and below otherwise all systems reviewed and negative. Past medical history: As per history of present illness and as reviewed below otherwise noncontributory. Surgical history: As per history of present illness and as reviewed below otherwise noncontributory. Social history: No reported history of drug or alcohol abuse. Family history: As per history of present illness and as reviewed below otherwise noncontributory. Physical exam: Gen.: Well-developed thin man who is nontoxic and very dramatic with my exam. He speaking clearly and easily and vital signs of the note by me HEENT: Atraumatic, normocephalic, negative for conjunctival pallor or scleral icterus, mucous membranes moist, throat clear, neck supple, nontender, trachea midline. Lungs: Clear to auscultation, breath sounds equal bilaterally, chest with tenderness on palpation in the left upper chest wall area without defects or deformities. The patient jumps when I touch the monitor leads its attached to his chest. Heart: S1S2, regular, negative for clicks, rubs, or JVD. Abdomen: Soft, nondistended, nontender. Negative for masses or hepatosplenomegaly. NABS Pelvis: Stable nontender. Genitourinary: Deferred. Rectal: Deferred. Extremities: Atraumatic, negative for cords or calf pain. Neurovascular unremarkable. No pedal edema or leg asymmetry Neuro: Awake, alert, oriented. Cranial nerves II through XII unremarkable. Cerebellum unremarkable. Motor and sensory unremarkable throughout. Exam nonfocal. Diagnostics: EKG CBC CMP troponin EtOH chest x-ray Therapeutics: IV O2 monitor, patient took baby aspirin this morning so he will be given 3 more 1950: Dr Carrasco is here in the ER and says that when the patient was discharged earlier today he still had chest pain and that it was not completely resolved. The patient does have MS Contin as well as Percocet at home to use for pain. He is here doing a evaluation of the patient and will assist with the disposition. 2044: Dr Carrasco has seen the patient and evaluated him. Please see his consult for further details. He recommends that we do a troponin at 2 hours from the first one and if this is negative the patient can go home with follow-up in the clinic. The patient will be given 1 Percocet here for his pain. 2136: Two-hour troponin is also negative so the patient will be discharged to home per Dr. Carrasco's instructions with clinic follow-up. Impression: Atypical chest pain chronic stable Definitive disposition and diagnosis as appropriate pending reevaluation and review of above. chest pain Pain Score (Numeric/FACES): 10 - Related Data Allergies Allergy/AdvReac Type Severity Reaction Status Date / Time No Known Allergies Allergy Verified 11/23/16 19:27 Home Meds: Home Meds Aspirin [Halfprin] 81 mg PO DAILY 09/22/16 [History] Carvedilol 3.125 mg PO BID 09/22/16 [History] Isosorbide Mononitrate [Imdur] 30 mg PO DAILY 09/22/16 [History] Morphine [MS Contin] 15 mg PO Q12HR PRN 09/22/16 [History] Pantoprazole [ProTONIX] 40 mg PO ACBREAKFAST 09/22/16 [History] Pravastatin [Pravachol] 40 mg PO DAILY 09/22/16 [History] Sennosides [Senokot] 8.6 mg PO BID PRN 09/22/16 [History] amLODIPine [Norvasc] 5 mg PO BID 09/22/16 [History] Nitroglycerin [Nitrostat] 0.4 mg SL Q5M PRN 11/22/16 [History] oxyCODONE HCl/Acetaminophen [oxyCODONE-Acetaminophen 5-325] 1 tab PO Q6H PRN 11/01 [History] Lisinopril 2.5 mg PO DAILY #30 tablet 11/23/16 [Rx] Past Medical History HEENT History: Reports: None Cardiovascular History: Reports: High Cholesterol, Hypertension, [place], Stents Respiratory History: Reports: None Gastrointestinal History: Reports: None Genitourinary History: Reports: None Musculoskeletal History: Reports: None Neurological History: Reports: None Psychiatric History: Reports: None Endocrine/Metabolic History: Reports: None Hematologic History: Reports: None Immunologic History: Reports: None Oncologic (Cancer) History: Reports: None Dermatologic History: Reports: None - Infectious Disease History Infectious Disease History: Reports: None - Past Surgical History Head Surgeries/Procedures: Reports: None HEENT Surgical History: Reports: Tonsillectomy, Other (See Below) Other HEENT Surgeries/Procedures: Dental extraction. Throat Surgery Cardiovascular Surgical History: Reports: Coronary Artery Stent Respiratory Surgical History: Reports: None Male Surgical History: Reports: None Endocrine Surgical History: Reports: None Musculoskeletal Surgical History: Reports: None Oncologic Surgical History: Reports: None Dermatological Surgical History: Reports: None Social & Family History - Family History Family Medical History: Noncontributory Cardiac: Reports: [place] Respiratory: Reports: None Endocrine/Metabolic: Reports: Diabetes, Type I Hematologic: Reports: None Oncologic: Reports: Other (See Below) Other Oncologic Family History: Father side has cancer but patient doesn't know exactly what kind of CA - Tobacco Use Smoking Status *Q: Former Smoker Used Tobacco, but Quit: No Month Tobacco Last Used: 2009 Second Hand Smoke Exposure: Yes - Caffeine Use Caffeine Use: Reports: Soda - Alcohol Use Days Per Week of Alcohol Use: 1 Number of Drinks Per Day: 2 Total Drinks Per Week: 2 - Recreational Drug Use Recreational Drug Use: No - Living Situation & Occupation Living situation: Reports: Occupation: Retired ED ROS GENERAL - Review of Systems Review Of Systems: ROS reveals no pertinent complaints other than HPI. ED EXAM, GENERAL - Physical Exam Exam: See Below (See dictation) Course - Vital Signs Last Recorded V/S: Last Vital Signs Temp 36.7 C 11/23/16 19:10 Pulse 78 11/23/16 20:45 Resp 18 11/23/16 20:45 BP 125/77 11/23/16 20:45 Pulse Ox 99 11/23/16 20:45 - Orders/Labs/Meds Orders: Active Orders 24 hr Category Date Time Status Cardiac Monitoring [RC] . DIRECTED Care 11/23/16 19:11 Active EKG Documentation Completion [RC] STAT Care 11/23/16 19:11 Active Notify Provider Consults [RC] ASDIRECTED Care 11/23/16 19:24 Active Oxygen Therapy, ED [RC] ASDIRECTED Care 11/23/16 19:11 Active Pulse Oximetry [RC] ASDIRECTED Care 11/23/16 19:11 Active Consult to Physician [CONS] Stat Cons 11/23/16 19:24 Active Chest 1V Frontal [CR] Stat Exams 11/23/16 19:11 Taken Sodium Chloride 0.9% [Saline Flush] Med 11/23/16 19:11 Active 10 ml FLUSH ASDIRECTED PRN Sodium Chloride 0.9% [Saline Flush] Med 11/23/16 19:11 Active 2.5 ml FLUSH ASDIRECTED PRN Saline Lock Insert [OM.PC] Stat Oth 11/23/16 19:10 Ordered Medication Orders Sodium Chloride (Saline Flush) 10 ml FLUSH ASDIRECTED PRN PRN Reason: Keep Vein Open Last Admin: 11/23/16 19:29 Dose: 10 ml Sodium Chloride (Saline Flush) 2.5 ml FLUSH ASDIRECTED PRN PRN Reason: Keep Vein Open Last Admin: 11/23/16 19:30 Dose: 2.5 ml Labs: Laboratory Tests 11/23/16 11/23/16 11/23/16 Range/Units 19:11 19:11 19:11 WBC 6.30 (4.0-11.0) K/uL RBC 4.59 (4.50-5.90) M/uL Hgb 13.1 (13.0-17.0) g/dL Hct 40.0 (38.0-50.0) % MCV 87.1 (80.0-98.0) fL MCH 28.5 (27.0-32.0) pg MCHC 32.8 (31.0-37.0) g/dL RDW Std Deviation 47.3 (28.0-62.0) fl RDW Coeff of Ethan 15 (11.0-15.0) % Plt Count 243 (150-400) K/uL MPV 9.80 (7.40-12.00) fL Neut % (Auto) 63.9 (48.0-80.0) % Lymph % (Auto) 24.4 (16.0-40.0) % Porter % (Auto) 9.7 (0.0-15.0) % Eos % (Auto) 1.7 (0.0-7.0) % Baso % (Auto) 0.3 (0.0-1.5) % Neut # (Auto) 4.0 (1.4-5.7) K/uL Lymph # (Auto) 1.5 (0.6-2.4) K/uL Porter # (Auto) 0.6 (0.0-0.8) K/uL Eos # (Auto) 0.1 (0.0-0.7) K/uL Baso # (Auto) 0.0 (0.0-0.1) K/uL Nucleated RBC % 0.0 /100WBC Nucleated RBCs # 0 K/uL Sodium 139 (136-146) mmol/L Potassium 3.8 (3.5-5.1) mmol/L Chloride 101 (98-110) mmol/L Carbon Dioxide 23 (21-31) mmol/L BUN 23 (6.0-23.0) mg/dL Creatinine 1.0 (0.6-1.5) mg/dL Est Cr Clr Drug Dosing 65.02 mL/min Estimated GFR (MDRD) > 60.0 ml/min Glucose 104 (60-110) mg/dL Calcium 9.5 (8.8-10.8) mg/dL Total Bilirubin 0.7 (0.1-1.5) mg/dL AST 16 (5-40) IU/L ALT 10 (8-54) IU/L Alkaline Phosphatase 70 (40-150) Troponin I < 0.10 (0.0-0.29) NG/ML Total Protein 7.7 (6.0-8.0) g/dL Albumin 4.5 (3.4-4.8) g/dL Globulin 3.2 (2.0-3.5) g/dL Albumin/Globulin Ratio 1.4 (1.3-2.8) Ethyl Alcohol < 10.0 mg/dL 11/23/16 Range/Units 21:20 WBC (4.0-11.0) K/uL RBC (4.50-5.90) M/uL Hgb (13.0-17.0) g/dL Hct (38.0-50.0) % MCV (80.0-98.0) fL MCH (27.0-32.0) pg MCHC (31.0-37.0) g/dL RDW Std Deviation (28.0-62.0) fl RDW Coeff of Ethan (11.0-15.0) % Plt Count (150-400) K/uL MPV (7.40-12.00) fL Neut % (Auto) (48.0-80.0) % Lymph % (Auto) (16.0-40.0) % Porter % (Auto) (0.0-15.0) % Eos % (Auto) (0.0-7.0) % Baso % (Auto) (0.0-1.5) % Neut # (Auto) (1.4-5.7) K/uL Lymph # (Auto) (0.6-2.4) K/uL Porter # (Auto) (0.0-0.8) K/uL Eos # (Auto) (0.0-0.7) K/uL Baso # (Auto) (0.0-0.1) K/uL Nucleated RBC % /100WBC Nucleated RBCs # K/uL Sodium (136-146) mmol/L Potassium (3.5-5.1) mmol/L Chloride (98-110) mmol/L Carbon Dioxide (21-31) mmol/L BUN (6.0-23.0) mg/dL Creatinine (0.6-1.5) mg/dL Est Cr Clr Drug Dosing mL/min Estimated GFR (MDRD) ml/min Glucose (60-110) mg/dL Calcium (8.8-10.8) mg/dL Total Bilirubin (0.1-1.5) mg/dL AST (5-40) IU/L ALT (8-54) IU/L Alkaline Phosphatase (40-150) Troponin I < 0.10 (0.0-0.29) NG/ML Total Protein (6.0-8.0) g/dL Albumin (3.4-4.8) g/dL Globulin (2.0-3.5) g/dL Albumin/Globulin Ratio (1.3-2.8) Ethyl Alcohol mg/dL Meds: Medications Generic Name Dose Route Start Last Admin Trade Name Freq PRN Reason Stop Dose Admin Sodium Chloride 10 ml 11/23/16 19:11 11/23/16 19:29 Saline Flush FLUSH 10 ml ASDIRECTED PRN Administration Keep Vein Open Sodium Chloride 2.5 ml 11/23/16 19:11 11/23/16 19:30 Saline Flush FLUSH 2.5 ml ASDIRECTED PRN Administration Keep Vein Open Discontinued Medications Generic Name Dose Route Start Last Admin Trade Name Freq PRN Reason Stop Dose Admin Aspirin 243 mg 11/23/16 19:12 11/23/16 19:28 Aspirin PO 11/23/16 19:13 243 mg ONETIME ONE Administration Oxycodone/Acetaminophen 1 tab 11/23/16 20:52 11/23/16 21:09 Percocet 325-5 Mg PO 11/23/16 20:53 1 tab ONETIME ONE Administration Departure - Departure Time of Disposition: 21:38 Disposition: Home, Self-Care 01 Condition: Good Clinical Impression: Atypical chest pain - Discharge Information Referrals: PCP,None [Primary Care Provider] - Forms: ED Department Discharge Additional Instructions: The following information is given to patients seen in the emergency department who are being discharged to home. This information is to outline your options for follow-up care. We provide all patients seen in our emergency department with a follow-up referral. The need for follow-up, as well as the timing and circumstances, are variable depending upon the specifics of your emergency department visit. If you don't have a primary care physician on staff, we will provide you with a referral. We always advise you to contact your personal physician following an emergency department visit to inform them of the circumstance of the visit and for follow-up with them and/or the need for any referrals to a consulting specialist. The emergency department will also refer you to a specialist when appropriate. This referral assures that you have the opportunity for followup care with a specialist. All of these measure are taken in an effort to provide you with optimal care, which includes your followup. Under all circumstances we always encourage you to contact your private physician who remains a resource for coordinating your care. When calling for followup care, please make the office aware that this follow-up is from your recent emergency room visit. If for any reason you are refused follow-up, please contact the [facility] emergency department at and ask to speak to the emergency department charge nurse. [facility] Primary care- Internal Medicine and Family [address] [address] Please use her medications you have at home for pain. Please call and follow-up in the clinic tomorrow either with your regular provider or with Dr. Fay your head well puller. Please return to ER as needed and as discussed - My Orders Last 24 Hours: My Active Orders 11/23/16 19:10 Saline Lock Insert [OM.PC] Stat 11/23/16 19:11 Cardiac Monitoring [RC] . DIRECTED EKG Documentation Completion [RC] STAT Oxygen Therapy, ED [RC] ASDIRECTED Pulse Oximetry [RC] ASDIRECTED Chest 1V Frontal [CR] Stat Sodium Chloride 0.9% [Saline Flush] 10 ml FLUSH ASDIRECTED PRN Sodium Chloride 0.9% [Saline Flush] 2.5 ml FLUSH ASDIRECTED PRN 11/23/16 19:24 Notify Provider Consults [RC] ASDIRECTED Consult to Physician [CONS] Stat - Assessment/Plan Last 24 Hours: My Active Orders 11/23/16 19:10 Saline Lock Insert [OM.PC] Stat 11/23/16 19:11 Cardiac Monitoring [RC] . DIRECTED EKG Documentation Completion [RC] STAT Oxygen Therapy, ED [RC] ASDIRECTED Pulse Oximetry [RC] ASDIRECTED Chest 1V Frontal [CR] Stat Sodium Chloride 0.9% [Saline Flush] 10 ml FLUSH ASDIRECTED PRN Sodium Chloride 0.9% [Saline Flush] 2.5 ml FLUSH ASDIRECTED PRN 08/08/17 19:24 Notify Provider Consults [RC] ASDIRECTED Consult to Physician [CONS] Stat
[2016-11-23 19:43] LABS: CHLORIDE,CL 101 mmol/L (98-110); SODIUM,NA 139 mmol/L (136-146)
[2016-11-23] MEDS ORDERED: Acetaminophen/oxyCODONE 325-5 MG Tab PO ONE (20:52)
--- NOTE | 2016-11-23 20:55 | PCM.CONS ---
H&P History of Present Illness - History of Present Illness Initial Comments - Free Text/Narative: 71 yo male with pmh of ischemic dilated cardiomyopathy with chronic chest pain on narcotics who was discharged earlier today after being observed for chest pain. He had ruled out for acute coronary syndrome with serial negative cardiac enzymes. He reports after discharge he has been having constant chest pain which is similar to the pain he was having during his admission. In the ED he was evaluated with EKG which showed no acute ischemic changes and a negative troponin. chest pain Pain Score (Numeric/FACES): 10 - Related Data Allergies/Adverse Reactions: Allergies Allergy/AdvReac Type Severity Reaction Status Date / Time No Known Allergies Allergy Verified 11/23/16 19:27 Home Medications: Home Meds Aspirin [Halfprin] 81 mg PO DAILY 09/22/16 [History] Carvedilol 3.125 mg PO BID 09/22/16 [History] Isosorbide Mononitrate [Imdur] 30 mg PO DAILY 09/22/16 [History] Morphine [MS Contin] 15 mg PO Q12HR PRN 09/22/16 [History] Pantoprazole [ProTONIX] 40 mg PO ACBREAKFAST 09/22/16 [History] Pravastatin [Pravachol] 40 mg PO DAILY 09/22/16 [History] Sennosides [Senokot] 8.6 mg PO BID PRN 09/22/16 [History] amLODIPine [Norvasc] 5 mg PO BID 09/22/16 [History] Nitroglycerin [Nitrostat] 0.4 mg SL Q5M PRN 11/22/16 [History] oxyCODONE HCl/Acetaminophen [oxyCODONE-Acetaminophen 5-325] 1 tab PO Q6H PRN 11/01 [History] Lisinopril 2.5 mg PO DAILY #30 tablet 11/23/16 [Rx] Past Medical History HEENT History: Reports: None Cardiovascular History: Reports: High Cholesterol, Hypertension, [place], Stents Respiratory History: Reports: None Gastrointestinal History: Reports: None Genitourinary History: Reports: None Musculoskeletal History: Reports: None Neurological History: Reports: None Psychiatric History: Reports: None Endocrine/Metabolic History: Reports: None Hematologic History: Reports: None Immunologic History: Reports: None Oncologic (Cancer) History: Reports: None Dermatologic History: Reports: None - Infectious Disease History Infectious Disease History: Reports: None - Past Surgical History Head Surgeries/Procedures: Reports: None HEENT Surgical History: Reports: Tonsillectomy, Other (See Below) Other HEENT Surgeries/Procedures: Dental extraction. Throat Surgery Cardiovascular Surgical History: Reports: Coronary Artery Stent Respiratory Surgical History: Reports: None Male Surgical History: Reports: None Endocrine Surgical History: Reports: None Musculoskeletal Surgical History: Reports: None Oncologic Surgical History: Reports: None Dermatological Surgical History: Reports: None Social & Family History - Family History Family Medical History: Noncontributory Cardiac: Reports: [place] Respiratory: Reports: None Endocrine/Metabolic: Reports: Diabetes, Type I Hematologic: Reports: None Oncologic: Reports: Other (See Below) Other Oncologic Family History: Father side has cancer but patient doesn't know exactly what kind of CA - Tobacco Use Smoking Status *Q: Former Smoker Used Tobacco, but Quit: No Month Tobacco Last Used: 2009 Second Hand Smoke Exposure: Yes - Caffeine Use Caffeine Use: Reports: Soda - Alcohol Use Days Per Week of Alcohol Use: 1 Number of Drinks Per Day: 2 Total Drinks Per Week: 2 - Recreational Drug Use Recreational Drug Use: No - Living Situation & Occupation Living situation: Reports: Occupation: Retired H&P Review of Systems - Review of Systems: Review Of Systems: ROS reveals no pertinent complaints other than HPI. Exam - Exam Exam: See Below - Vital Signs Vital Signs: Last Vital Signs Temp 36.7 C 11/23/16 19:10 Pulse 112 H 11/23/16 19:10 Resp 18 11/23/16 19:10 BP 138/97 H 11/23/16 19:10 Pulse Ox 100 11/23/16 19:10 Weight: 69.5 kg - Exam General: Alert, Oriented, 4 HEENT: Posterior Pharynx Clear Lungs: Clear to Auscultation, Normal Respiratory Effort Cardiovascular: Regular Rate, Regular Rhythm Extremities: Normal Inspection, Normal Range of Motion, Non-Tender, No Pedal Edema, Normal Capillary Refill Skin: Warm, Dry, Intact - Patient Data Lab Results Last 24 hrs: Laboratory Results - last 24 hr 11/23/16 11/23/16 11/23/16 Range/Units 19:11 19:11 19:11 WBC 6.30 (4.0-11.0) K/uL RBC 4.59 (4.50-5.90) M/uL Hgb 13.1 (13.0-17.0) g/dL Hct 40.0 (38.0-50.0) % MCV 87.1 (80.0-98.0) fL MCH 28.5 (27.0-32.0) pg MCHC 32.8 (31.0-37.0) g/dL RDW Std Deviation 47.3 (28.0-62.0) fl RDW Coeff of Ethan 15 (11.0-15.0) % Plt Count 243 (150-400) K/uL MPV 9.80 (7.40-12.00) fL Neut % (Auto) 63.9 (48.0-80.0) % Lymph % (Auto) 24.4 (16.0-40.0) % Atlantic % (Auto) 9.7 (0.0-15.0) % Eos % (Auto) 1.7 (0.0-7.0) % Baso % (Auto) 0.3 (0.0-1.5) % Neut # (Auto) 4.0 (1.4-5.7) K/uL Lymph # (Auto) 1.5 (0.6-2.4) K/uL Atlantic # (Auto) 0.6 (0.0-0.8) K/uL Eos # (Auto) 0.1 (0.0-0.7) K/uL Baso # (Auto) 0.0 (0.0-0.1) K/uL Nucleated RBC % 0.0 /100WBC Nucleated RBCs # 0 K/uL Sodium 139 (136-146) mmol/L Potassium 3.8 (3.5-5.1) mmol/L Chloride 101 (98-110) mmol/L Carbon Dioxide 23 (21-31) mmol/L BUN 23 (6.0-23.0) mg/dL Creatinine 1.0 (0.6-1.5) mg/dL Est Cr Clr Drug Dosing 65.02 mL/min Estimated GFR (MDRD) > 60.0 ml/min Glucose 104 (60-110) mg/dL Calcium 9.5 (8.8-10.8) mg/dL Total Bilirubin 0.7 (0.1-1.5) mg/dL AST 16 (5-40) IU/L ALT 10 (8-54) IU/L Alkaline Phosphatase 70 (40-150) Troponin I < 0.10 (0.0-0.29) NG/ML Total Protein 7.7 (6.0-8.0) g/dL Albumin 4.5 (3.4-4.8) g/dL Globulin 3.2 (2.0-3.5) g/dL Albumin/Globulin Ratio 1.4 (1.3-2.8) Ethyl Alcohol < 10.0 mg/dL Result Diagrams: 11/23/16 19:11 11/23/16 19:11 Consult PN Assessment/Plan Procedures: Procedures ASSAY OF AMYLASE (09/22/16) ASSAY OF CK (CPK) (09/22/16) ASSAY OF LIPASE (09/22/16) ASSAY OF MAGNESIUM (09/22/16) ASSAY OF TROPONIN QUANT (09/22/16) C-REACTIVE PROTEIN (10/01/16) CARDIOVASCULAR STRESS TEST (10/13/16) CHEST X-RAY 1 VIEW FRONTAL (09/22/16) COMPLETE CBC W/AUTO DIFF WBC (09/22/16) COMPREHEN METABOLIC PANEL (09/22/16) CREATINE MB FRACTION (09/22/16) ELECTROCARDIOGRAM TRACING (09/22/16) EMERGENCY DEPT VISIT (09/22/16) FIBRIN DEGRADATION QUANT (09/22/16) HT MUSCLE IMAGE SPECT SING (10/29/16) LIPID PANEL (10/01/16) MEDICAL NUTRITION INDIV IN (09/22/16) PROTHROMBIN TIME (09/22/16) RBC SED RATE AUTOMATED (10/01/16) ROUTINE VENIPUNCTURE (10/01/16) THER/PROPH/DIAG INJ IV PUSH (09/22/16) TTE W/DOPPLER COMPLETE (09/29/16) TX/PRO/DX INJ NEW DRUG ADDON (09/22/16) URINALYSIS AUTO W/SCOPE (09/22/16) X-RAY EXAM RIBS UNI 2 VIEWS (09/22/16) Problem List Initiated/Reviewed/Updated: Yes Plan: 71 yo male with ischemic cardiomyopathy who presents with atypical chest pain. I would recommend repeating another troponin. If negative patient should follow up with his primary care physician regarding his chronic chest pain.
[2016-11-23 21:48] VITALS: BP 125/70
--- NOTE | 2016-11-24 09:55 | CR ---
EXAM DATE: 11/23/16 PATIENT'S AGE: 71 Patient: BERNARD BORREGO Facility: [place], [place] Site . Site : [id number] Study: XRay Chest [id number]/[id number] 7:28:49 PM Ordering Physician: Marquise Tinoco Final Report: INDICATION: chest pain TECHNIQUE: Chest 1 view COMPARISON: None FINDINGS: Cardiovascular and mediastinum: Heart size and vasculature are normal in caliber and appearance. Mediastinum is within normal limits. Lungs and pleural space: No focal consolidation. No sign of pleural effusion. No pneumothorax. Bones and soft tissues: Remote posttraumatic deformity of the right mid clavicle. IMPRESSION: No acute cardiopulmonary disease. Dictated by Bob Arce MD @ 11/23/2016 7:36:58 PM Dictated by: Bob rAce MD @ 11/23/2016 19:37:04 (Electronic Signature) Report Signed by Proxy. ETHAN
== END 2016-11-23 21:46 | disposition home or self-care (01) ==
LOC: MW.ED 18:59
DX: R07.89 Other chest pain (principal); G89.29 Other chronic pain; I11.9 Hypertensive heart disease without heart failure; I25.10 Atherosclerotic heart disease of native coronary artery without angina pectoris; E78.00 Pure hypercholesterolemia, unspecified; I25.2 Old myocardial infarction; Z98.890 Other specified postprocedural states; Z95.5 Presence of coronary angioplasty implant and graft; Z87.891 Personal history of nicotine dependence; Z79.82 Long term (current) use of aspirin; Z79.899 Other long term (current) drug therapy
CPT/HCPCS: 36415; 71010; 80053; 84484; 85025; 93005; 99285; A9270; G0480; 99283

== ENCOUNTER 2017-01-31 14:44 | Observation (INO) | payer MEDICAID, MEDICARE, OTHER ==
[2017-01-31] MEDS ORDERED: Sodium Chloride 0.9% 1,000 ML IV ONE (14:50)
--- NOTE | 2017-01-31 14:52 | EDM.PDOC ---
ED HPI GENERAL MEDICAL PROBLEM - General Chief Complaint: Chest Pain Stated Complaint: chest pain Time Seen by Provider: 01/31/17 14:50 Source of Information: Reports: Patient History Limitations: Reports: No Limitations - History of Present Illness INITIAL COMMENTS - FREE TEXT/NARRATIVE: HISTORY AND PHYSICAL: History of present illness: Patient is a 71-year-old male who presents to the emergency room today with complaints of midsternal chest pain that started approximately 10:00 this morning. States he was sitting in his chair with pain started. Nothing improves the pain and states that nothing makes the pain worse. Rates his pain at an 8 out of 10. Reports that she has been diaphoretic and has had chills. Refuses to take his home nitroglycerin as he does not like the headache that comes along with taking this medication. And the pain did not subside sided to present to the ER. Patient had a stent placement at [place] approximately [address] Ahn. He does follow up with in [place]. Past medical history of ischemic dilated cardiomyopathy, coronary artery disease , hypertension, elevated cholesterol, coronary artery disease, and the above stent placement. Review of systems: As per history of present illness and below otherwise all systems reviewed and negative. Past medical history: As per history of present illness and as reviewed below otherwise noncontributory. Surgical history: As per history of present illness and as reviewed below otherwise noncontributory. Social history: No reported history of drug or alcohol abuse. Family history: As per history of present illness and as reviewed below otherwise noncontributory. Physical exam: Gen.: Well-developed and well-nourished 71-year-old male. Able to speak in full sentences without shortness of breath. Alert and oriented. HEENT: Atraumatic, normocephalic, pupils reactive, negative for conjunctival pallor or scleral icterus, mucous membranes moist, throat clear, neck supple, nontender, trachea midline. Lungs: Clear to auscultation, breath sounds equal bilaterally, chest nontender. Heart: S1S2, regular rate and rhythm. Abdomen: Soft, nondistended, nontender. Negative for masses or hepatosplenomegaly. Negative for costovertebral tenderness. Pelvis: Stable nontender. Genitourinary: Deferred. Rectal: Deferred. Extremities: Atraumatic, negative for cords or calf pain. Neurovascular unremarkable. Neuro: Awake, alert, oriented. Cranial nerves II through XII unremarkable. Cerebellum unremarkable. Motor and sensory unremarkable throughout. Exam nonfocal. Patient's pain has subsided. He states he is uncomfortable going home alone. He is requesting to stay overnight. Dr. rodriguez has agreed to accept this patient for observation admission. Patient is agreeable to plan of care. Denies any further questions at this time. Diagnostics: EPC, CMP, troponin, EKG, one view chest x-ray, ekg monitor Therapeutics: Aspirin, nitroglycerin Impression: Chest pain, rule out [place] Plan: Observation admission for chest pain rule out on telemetry Definitive disposition and diagnosis as appropriate pending reevaluation and review of above. Onset: Today Duration: Hour(s): Location: Reports: Chest (Nadiating) Chest Pain Score (Numeric/FACES): 6 - Related Data Allergies Allergy/AdvReac Type Severity Reaction Status Date / Time No Known Allergies Allergy Verified 01/31/17 14:50 Home Meds: Home Meds Aspirin [Halfprin] 81 mg PO DAILY 09/22/16 [History] Carvedilol 3.125 mg PO BID 09/22/16 [History] Isosorbide Mononitrate [Imdur] 30 mg PO DAILY 09/22/16 [History] Pantoprazole [ProTONIX] 40 mg PO ACBREAKFAST 09/22/16 [History] Pravastatin [Pravachol] 40 mg PO DAILY 09/22/16 [History] Sennosides [Senokot] 8.6 mg PO BID PRN 09/22/16 [History] amLODIPine [Norvasc] 5 mg PO BID 09/22/16 [History] Nitroglycerin [Nitrostat] 0.4 mg SL Q5M PRN 11/22/16 [History] oxyCODONE HCl/Acetaminophen [oxyCODONE-Acetaminophen 5-325] 1 tab PO Q6H PRN 11/01 [History] Lisinopril 2.5 mg PO DAILY #30 tablet 11/23/16 [Rx] Past Medical History HEENT History: Reports: None Cardiovascular History: Reports: High Cholesterol, Hypertension, [place], Stents Respiratory History: Reports: None Gastrointestinal History: Reports: None Genitourinary History: Reports: None Musculoskeletal History: Reports: None Neurological History: Reports: None Psychiatric History: Reports: None Endocrine/Metabolic History: Reports: None Hematologic History: Reports: None Immunologic History: Reports: None Oncologic (Cancer) History: Reports: None Dermatologic History: Reports: None - Infectious Disease History Infectious Disease History: Reports: None - Past Surgical History Head Surgeries/Procedures: Reports: None HEENT Surgical History: Reports: Tonsillectomy, Other (See Below) Other HEENT Surgeries/Procedures: Dental extraction. Throat Surgery Cardiovascular Surgical History: Reports: Coronary Artery Stent Respiratory Surgical History: Reports: None Male Surgical History: Reports: None Endocrine Surgical History: Reports: None Musculoskeletal Surgical History: Reports: None Oncologic Surgical History: Reports: None Dermatological Surgical History: Reports: None Social & Family History - Family History Family Medical History: Noncontributory Cardiac: Reports: [place] Respiratory: Reports: None Endocrine/Metabolic: Reports: Diabetes, Type I Hematologic: Reports: None Oncologic: Reports: Other (See Below) Other Oncologic Family History: Father side has cancer but patient doesn't know exactly what kind of CA - Tobacco Use Smoking Status *Q: Former Smoker Used Tobacco, but Quit: No Month Tobacco Last Used: 2009 Second Hand Smoke Exposure: Yes - Caffeine Use Caffeine Use: Reports: Soda - Alcohol Use Days Per Week of Alcohol Use: 1 Number of Drinks Per Day: 2 Total Drinks Per Week: 2 - Recreational Drug Use Recreational Drug Use: No - Living Situation & Occupation Living situation: Reports: Occupation: Retired ED ROS GENERAL - Review of Systems Review Of Systems: ROS reveals no pertinent complaints other than HPI. ED EXAM, GENERAL - Physical Exam Exam: See Below (See dictation) EKG INTERPRETATION EKG Date: 01/31/17 Time: 14:45 Rhythm: NSR Rate (Beats/Min): 81 EKG Interpretation Comments: Reviewed by me and Dr. Wright. Course - Vital Signs Last Recorded V/S: Last Vital Signs Temp 37.1 C 01/31/17 19:38 Pulse 82 01/31/17 17:05 Resp 14 01/31/17 19:38 BP 140/79 01/31/17 19:38 Pulse Ox 98 01/31/17 19:38 - Orders/Labs/Meds Labs: Laboratory Tests 01/31/17 01/31/17 01/31/17 Range/Units 14:54 14:54 14:54 WBC 5.41 (4.0-11.0) K/uL RBC 4.59 (4.50-5.90) M/uL Hgb 12.8 L (13.0-17.0) g/dL Hct 39.5 (38.0-50.0) % MCV 86.1 (80.0-98.0) fL MCH 27.9 (27.0-32.0) pg MCHC 32.4 (31.0-37.0) g/dL RDW Std Deviation 48.5 (28.0-62.0) fl RDW Coeff of Ethan 15 (11.0-15.0) % Plt Count 220 (150-400) K/uL MPV 9.70 (7.40-12.00) fL Neut % (Auto) 50.4 (48.0-80.0) % Lymph % (Auto) 31.2 (16.0-40.0) % Valley % (Auto) 12.8 (0.0-15.0) % Eos % (Auto) 5.2 (0.0-7.0) % Baso % (Auto) 0.4 (0.0-1.5) % Neut # (Auto) 2.7 (1.4-5.7) K/uL Lymph # (Auto) 1.7 (0.6-2.4) K/uL Valley # (Auto) 0.7 (0.0-0.8) K/uL Eos # (Auto) 0.3 (0.0-0.7) K/uL Baso # (Auto) 0.0 (0.0-0.1) K/uL Nucleated RBC % 0.0 /100WBC Nucleated RBCs # 0 K/uL Sodium 141 (136-146) mmol/L Potassium 3.8 (3.5-5.1) mmol/L Chloride 108 (98-110) mmol/L Carbon Dioxide 23 (21-31) mmol/L BUN 22 (6.0-23.0) mg/dL Creatinine 0.8 (0.6-1.5) mg/dL Est Cr Clr Drug Dosing 81.48 mL/min Estimated GFR (MDRD) > 60.0 ml/min Glucose 116 H (60-110) mg/dL Calcium 9.6 (8.8-10.8) mg/dL Total Bilirubin 0.3 (0.1-1.5) mg/dL AST 20 (5-40) IU/L ALT 17 (8-54) IU/L Alkaline Phosphatase 87 (40-150) Troponin I < 0.10 (0.0-0.29) NG/ML Total Protein 7.6 (6.0-8.0) g/dL Albumin 4.4 (3.4-4.8) g/dL Globulin 3.2 (2.0-3.5) g/dL Albumin/Globulin Ratio 1.4 (1.3-2.8) Meds: Medications Discontinued Medications Generic Name Dose Route Start Last Admin Trade Name Freq PRN Reason Stop Dose Admin Aspirin 324 mg 01/31/17 19:26 01/31/17 19:33 Aspirin PO 01/31/17 19:27 324 mg ONETIME ONE Administration Aspirin 324 mg 01/31/17 19:28 Aspirin PO 01/31/17 19:29 ONETIME ONE Enoxaparin Sodium 70 mg 01/31/17 18:52 01/31/17 19:06 Lovenox SUBCUT 01/31/17 18:53 70 mg ONETIME ONE Administration Sodium Chloride 1,000 mls @ 999 mls/hr 01/31/17 14:50 01/31/17 15:09 Normal Saline IV 01/31/17 15:50 999 mls/hr STAT ONE Administration Morphine Sulfate 2 mg 01/31/17 15:37 01/31/17 15:46 Morphine IVPUSH 01/31/17 15:38 2 mg ONETIME ONE Administration Morphine Sulfate 2 mg 01/31/17 18:06 01/31/17 18:21 Morphine IVPUSH 01/31/17 18:07 2 mg ONETIME ONE Administration Nitroglycerin 0.4 mg 01/31/17 14:50 01/31/17 18:17 Nitrostat SL 0.4 mg Q5M PRN Administration Chest Pain Departure - Departure Time of Disposition: 20:20 Disposition: Admitted As Inpatient 68 Reason for Transfer *Q: Other (Transfered from the floor) Condition: Fair Clinical Impression: Chest pain, rule out acute myocardial infarction
[2017-01-31] MEDS: Nitroglycerin 0.4 MG Tab.SL SL PRN ×3 (15:07→18:17)
[2017-01-31 15:17] LABS: CHLORIDE,CL 108 mmol/L (98-110); SODIUM,NA 141 mmol/L (136-146)
[2017-01-31] MEDS ORDERED: Morphine 2 MG/ML Syringe IVPUSH ONE ×2 (15:37→18:06)
--- NOTE | 2017-01-31 15:39 | CR ---
EXAMINATION: Portable chest radiograph. HISTORY: Chest pain. FINDINGS: The trachea is midline. The cardiomediastinal silhouette is within normal limits. No pulmonary infilt rates, effusions or pneumothorax. Mild chronic interstitial prominence is noted. Osseous structures appear unremarkable. IMPRESSION: No acute cardiopulmonary process.
--- NOTE | 2017-01-31 18:40 | PCM.HP ---
H&P History of Present Illness - General Date of Service: 01/31/17 Admit Problem/Dx: chest pain Source of Information: Patient History Limitations: Reports: No Limitations - History of Present Illness Initial Comments - Free Text/Narative: 71 yo male admitted for chest pain. 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 He was doing well until earlier today when he developed presure like chest pain in the center of his chest. The pain was 8/10 and constant. He then developed some dizziness, nausea and sweating. He did not take his Nitroglycerine bc he states it has never worked in the past. He had PCI with 2 stents in 2009 as well, this was in [place]. In the ED he was found to have EKG with NSR, negative CXR and negative Troponin. He was given 2 doses of nitroglycerin followed by 1 dose of morphine. His pain improved and he was sent to floor for monitoring with telemetry. Upon initial exam on the floor he complained that his chest pain never resolved and was still present. He stated that the Morphine caused some improvement from 8/10 to 6/10. He insisted that the Nitroglycerin did not improve the pain. Repeat EKG and Troponin was ordered. He was also given another dose of Nitroglycerin. Within 1-2 minutes of ingesting the Nitro he began to have severe pain and irregular breathing. He began shaking. Code was called and Morphine was given. Shortly after receiving Morphine he was able to calm down once again. Repeat EKG and Troponin were unchanged. His BP was mildly elevated at 153/98. He had good pulse and breath sounds. Decision was made to contact [facility] regarding transfer. Dr. Valdez is the accepting physician. He will be directly admitted to a monitored unit. He was given Lovenox 1 mg/kg as per recommendations of Dr. Valdez. - Related Data Allergies/Adverse Reactions: Allergies Allergy/AdvReac Type Severity Reaction Status Date / Time No Known Allergies Allergy Verified 01/31/17 14:50 Home Medications: Home Meds Aspirin [Halfprin] 81 mg PO DAILY 09/22/16 [History] Carvedilol 3.125 mg PO BID 09/22/16 [History] Isosorbide Mononitrate [Imdur] 30 mg PO DAILY 09/22/16 [History] Pantoprazole [ProTONIX] 40 mg PO ACBREAKFAST 09/22/16 [History] Pravastatin [Pravachol] 40 mg PO DAILY 09/22/16 [History] Sennosides [Senokot] 8.6 mg PO BID PRN 09/22/16 [History] amLODIPine [Norvasc] 5 mg PO BID 09/22/16 [History] Nitroglycerin [Nitrostat] 0.4 mg SL Q5M PRN 11/22/16 [History] oxyCODONE HCl/Acetaminophen [oxyCODONE-Acetaminophen 5-325] 1 tab PO Q6H PRN 11/01 [History] Lisinopril 2.5 mg PO DAILY #30 tablet 11/23/16 [Rx] Past Medical History HEENT History: Reports: Cataract Cardiovascular History: Reports: High Cholesterol, Hypertension, [place], Stents Respiratory History: Reports: None Gastrointestinal History: Reports: None Genitourinary History: Reports: None Musculoskeletal History: Reports: None Neurological History: Reports: None Psychiatric History: Reports: None Endocrine/Metabolic History: Reports: None Hematologic History: Reports: None Immunologic History: Reports: None Oncologic (Cancer) History: Reports: None Dermatologic History: Reports: None - Infectious Disease History Infectious Disease History: Reports: Chicken Pox, Measles, Mumps - Past Surgical History Head Surgeries/Procedures: Reports: None HEENT Surgical History: Reports: Cataract Surgery, Tonsillectomy, Other (See Below) Other HEENT Surgeries/Procedures: Dental extraction. Throat Surgery---swollen glands Cardiovascular Surgical History: Reports: Coronary Artery Stent Respiratory Surgical History: Reports: None Male Surgical History: Reports: None Endocrine Surgical History: Reports: None Musculoskeletal Surgical History: Reports: None Oncologic Surgical History: Reports: None Dermatological Surgical History: Reports: None Social & Family History - Family History Family Medical History: Noncontributory Cardiac: Reports: [place] Respiratory: Reports: None Endocrine/Metabolic: Reports: Diabetes, Type I Hematologic: Reports: None Oncologic: Reports: Other (See Below) Other Oncologic Family History: Father side has cancer but patient doesn't know exactly what kind of CA - Tobacco Use Smoking Status *Q: Former Smoker Used Tobacco, but Quit: Yes Month Tobacco Last Used: 2009 Second Hand Smoke Exposure: No - Caffeine Use Caffeine Use: Reports: None - Alcohol Use Days Per Week of Alcohol Use: 1 Number of Drinks Per Day: 2 Total Drinks Per Week: 2 - Recreational Drug Use Recreational Drug Use: No - Living Situation & Occupation Living situation: Reports: Occupation: Retired H&P Review of Systems - Review of Systems: Review Of Systems: See Below General: Reports: Weakness, Diaphoresis Cardiovascular: Reports: Chest Pain, Lightheadedness Gastrointestinal: Reports: Nausea Neurological: Reports: Dizziness Exam - Exam Exam: See Below - Vital Signs Vital Signs: Last Vital Signs Temp 36.9 C 01/31/17 17:05 Pulse 82 01/31/17 17:05 Resp 20 01/31/17 17:05 BP 154/87 H 01/31/17 18:17 Pulse Ox 96 01/31/17 17:05 Weight: 70.942 kg - Exam General: Alert, Oriented, Mild Distress HEENT: Conjunctiva Clear Neck: Supple, Trachea Midline, +2 Carotid Pulse wo Bruit Lungs: Clear to Auscultation, Normal Respiratory Effort Cardiovascular: Regular Rate, Regular Rhythm Extremities: Normal Inspection, No Pedal Edema Neuro Extensive - Mental Status: Alert, Oriented x3 - Patient Data Result Diagrams: 01/31/17 14:54 01/31/17 14:54 *Q Meaningful Use (ADM) - VTE *Q VTE Criteria *Q: - Stroke *Q Stroke Criteria *Q: - AMI *Q AMI Criteria *Q: Problem List Initiated/Reviewed/Updated: Yes Orders Last 24hrs: Active Orders 24 hr Category Date Time Status EKG 12 Lead [EKG Documentation Completion] [RC] STAT Care 01/31/17 18:08 Active Telemetry Monitoring [Cardiac Monitoring] [RC] . Care 01/31/17 18:28 Active DIRECTED Heart Healthy Diet [DIET] Diet 02/01/17 Breakfast Active TROPONIN I [CHEM] Stat Lab 01/31/17 18:19 Ordered Assessment/Plan Comment:: Assessment: 71 year old male with history of [place] s/p PCI with stent placed [address] Victoria at [facility] admitted for chest pain. Plan: Patient will be transerred to [facility]. Accepting Physician is Dr. Blount. He was given Lovenox 1mg/kg prior to transfer as per recommendations of Dr. Blount.
[2017-01-31] MEDS ORDERED: Enoxaparin 100 MG/1 ML Syringe SUBCUT ONE (18:52)
--- NOTE | 2017-01-31 19:21 | PCM.SN ---
- Free Text/Narrative Note: This is a monitoring note on the care of this 71 year old male who has a history of coronary artery disease who had stenting in 2009 in [place] and was doing well until about 1 month ago when he suffered an DC and was under the care of Dr. Victoria at [facility] for this. He received a stent at that time, but I do not have records available at this moment specifying location. He did well post operatively until this afternoon when he had the onset of left precordial chest pain which caused him to come to [facility] ER for evaluation. He was given 2 doses of nitroglycerin there with no improvement and was given Morphine IV which did relieve the pain. He was admitted to telemetry monitoring and as he was being evaluated by my resident, Dr. Payton, he began having the pain again. I came into the room at this time and he repeated his complaint and said the pain was an 8. He was being monitored and had BP145/90, Pulse 94, O2 sat 98%. He was given SL nitro .4 mg and shortly after became very agitated and unable to talk about what he felt. A code blue was called but he did not loose consciousness and did not loose pulse or breathing. He was then given morphine 2 mg IV. He had sinus rhythm on the monitor. ECG was done showing no ST elevations or depressions. Troponin was drawn and was less than 0.10. Because of the recurrent nature of the pain, I wanted to move him to our ICU, but our capacity in staffing and rooms had been maxed out today. Our better option, considering that he could be experiencing restenosis of his stent, was to transfer to [facility] where his feed research technician could reassess him. [facility] was contacted and I discussed his care with Dr. Glynn Valdez DO who accepted him in transfer. He instructed that we should give the patient 1 mg/kg Lovenox at this time. Arrangements for flight to [place] have been made.
[2017-01-31] MEDS ORDERED: Aspirin 81 MG Tab.Chew PO ONE ×2 (19:26→19:28)
[2017-01-31 19:40] VITALS: BP 140/79
== END 2017-01-31 20:20 ==
LOC: MW.ED 14:44 → MW.MS 16:10
PROVIDERS: ADMIT Family Medicine; ATTEND Family Medicine
DX: R07.2 Precordial pain (principal); I25.10 Atherosclerotic heart disease of native coronary artery without angina pectoris; I25.2 Old myocardial infarction; I10 Essential (primary) hypertension; E78.00 Pure hypercholesterolemia, unspecified; Z87.891 Personal history of nicotine dependence; Z82.49 Family history of ischemic heart disease and other diseases of the circulatory system; Z79.82 Long term (current) use of aspirin; Z79.899 Other long term (current) drug therapy; Z98.49 Cataract extraction status, unspecified eye; Z95.5 Presence of coronary angioplasty implant and graft; Z90.89 Acquired absence of other organs; Z98.818 Other dental procedure status; Z98.890 Other specified postprocedural states
CPT/HCPCS: 36415; 71010; 80053; 84484; 85025; 93005; 96361; 96372; 96374; 99285; A9270; G0378; J1650; J2270; J7040

== ENCOUNTER 2017-04-18 12:12 | Observation (INO) | payer MEDICARE, MEDICAID ==
[2017-04-18] MEDS ORDERED: Sodium Chloride 0.9% 2.5 ML Syringe FLUSH PRN (12:31)
[2017-04-18] MEDS ORDERED: Aspirin 81 MG Tab.Chew PO ONE (12:31)
[2017-04-18] MEDS ORDERED: Sodium Chloride 0.9% 10 ML Syringe FLUSH PRN (12:31)
[2017-04-18] MEDS ORDERED: Morphine 2 MG/ML Syringe IVPUSH ONE (12:33)
--- NOTE | 2017-04-18 12:36 | EDM.PDOC ---
ED HPI GENERAL MEDICAL PROBLEM - General Chief Complaint: Syncope Stated Complaint: UNK Time Seen by Provider: 04/18/17 12:25 - History of Present Illness INITIAL COMMENTS - FREE TEXT/NARRATIVE: HISTORY AND PHYSICAL: History of present illness: The patient is a 71-year-old male who has a significant cardiac history for PTCA with stent in 2009 in [place] as well as repeat stenting with Dr. Stapleton at [facility] in [place] in December 2016 with a subsequent admission here in January; patient presents today via EMS after having a brief syncopal event for which she had no preceding symptomatology. The patient is well known to the ED staff and myself for complaints of chest pain which is both cardiac and musculoskeletal in etiology. He is currently following with our gaming cage cashier Dr. Fay in the clinic and says he has been doing very well and has had no upper respiratory symptoms except a mild cold last week and no vomiting abdominal pain or recent trauma. He says that he was in the kitchen and he had no preceding symptomatology and then awoke on the floor after a brief syncopal event. He has complains only of some right hip pain with movement but has no head neck or back pain no upper extremity or lower [place] complaints except the right hip. He has no nausea no vomiting and no discrete shortness of breath. He says he has some left anterior chest wall pain which he says is worse when he touches it. Please note that the patient does take chronic pain medication on a daily basis for chest wall discomfort. The patient has a history of hypertension hypercholesterolemia along with the cardiac disease. The patient does have sublingual nitroglycerin which he has at home but he did not take any today that may have triggered his syncopal event and he says he has not taken that for a "long time" and he does not use it on any regular basis for chest pain. Review of systems: As per history of present illness and below otherwise all systems reviewed and negative. Past medical history: As per history of present illness and as reviewed below otherwise noncontributory. Surgical history: As per history of present illness and as reviewed below otherwise noncontributory. Social history: No reported history of drug or alcohol abuse. Family history: As per history of present illness and as reviewed below otherwise noncontributory. Physical exam: Gen.: Well-developed well-nourished thin man who is nontoxic and moves easily in the ED. He speaks clearly and is not breathless and vital signs reviewed by me. HEENT: Atraumatic, normocephalic, pupils reactive, negative for conjunctival pallor or scleral icterus, mucous membranes moist, throat clear, neck supple, nontender, trachea midline. Lungs: Clear to auscultation, breath sounds equal bilaterally, chest wall has tenderness with palpation at the left side without defects deformities or crepitus and there is no work of breathing or sensory muscle use Heart: S1S2, regular, negative for clicks, rubs, or JVD. Abdomen: Soft, nondistended, nontender. Negative for masses or hepatosplenomegaly. Negative for costovertebral tenderness. Pelvis: Stable nontender. Genitourinary: Deferred. Rectal: Deferred. Extremities: Atraumatic, negative for cords or calf pain. Neurovascular unremarkable. No pedal edema or leg asymmetry. There is some mild tenderness at lateral right hip with palpation without swelling defects or deformities and the patient has full range of motion of this hip. Neuro: Awake, alert, oriented. Cranial nerves II through XII unremarkable. Cerebellum unremarkable. Motor and sensory unremarkable throughout. Exam nonfocal. Back: There are no midline step-offs in his defects of the cervical thoracic or lumbar spine no soft tissue evidence of trauma such as abrasion ecchymosis or erythema and there is no soft tissue swelling. There is no posterior rib or posterior pelvis tenderness Diagnostics: EKG chest x-ray right hip with pelvis x-ray orthostatic vitals CBC CMP INR troponin CT scan of the head Therapeutics: IV O2 monitor aspirin morphine His note the patient did exhibit orthostasis on vital sign evaluation supine and standing with his systolic blood pressure going from 142-105 and his heart rate going from 78-108. I will write for IV fluids. 1449: Case was discussed with our hospitalist Dr. Carrasco who agrees for admission. He is aware of CT scan of the head and the findings as well as patient's orthostasis. I've also discussed all testing results with the patient and at bedside. The patient is very anxious in general and more anxious knowing that he staying in the hospital but he is agreeable. He states understanding of my concerns. Impression: Syncopal event with orthostasis and cardiac disease Definitive disposition and diagnosis as appropriate pending reevaluation and review of above. Left Chest Pain Score (Numeric/FACES): 4 - Related Data Allergies Allergy/AdvReac Type Severity Reaction Status Date / Time No Known Allergies Allergy Verified 01/31/17 14:50 Home Meds: Home Meds Aspirin [Halfprin] 81 mg PO DAILY 09/22/16 [History] Carvedilol 3.125 mg PO BID 09/22/16 [History] Isosorbide Mononitrate [Imdur] 30 mg PO DAILY 09/22/16 [History] Pantoprazole [ProTONIX] 40 mg PO ACBREAKFAST 09/22/16 [History] Pravastatin [Pravachol] 40 mg PO DAILY 09/22/16 [History] Sennosides [Senokot] 8.6 mg PO BID PRN 09/22/16 [History] amLODIPine [Norvasc] 5 mg PO BID 09/22/16 [History] Nitroglycerin [Nitrostat] 0.4 mg SL Q5M PRN 11/22/16 [History] oxyCODONE HCl/Acetaminophen [oxyCODONE-Acetaminophen 5-325] 1 tab PO Q6H PRN 11/01 [History] Lisinopril 2.5 mg PO DAILY #30 tablet 11/23/16 [Rx] Past Medical History HEENT History: Reports: None Cardiovascular History: Reports: High Cholesterol, Hypertension, [place], Stents Respiratory History: Reports: None Gastrointestinal History: Reports: None Genitourinary History: Reports: None Musculoskeletal History: Reports: None Neurological History: Reports: None Psychiatric History: Reports: None Endocrine/Metabolic History: Reports: None Hematologic History: Reports: None Immunologic History: Reports: None Oncologic (Cancer) History: Reports: None Dermatologic History: Reports: None - Infectious Disease History Infectious Disease History: Reports: None - Past Surgical History Head Surgeries/Procedures: Reports: None HEENT Surgical History: Reports: Tonsillectomy, Other (See Below) Other HEENT Surgeries/Procedures: Dental extraction. Throat Surgery Cardiovascular Surgical History: Reports: Coronary Artery Stent Respiratory Surgical History: Reports: None Male Surgical History: Reports: None Endocrine Surgical History: Reports: None Musculoskeletal Surgical History: Reports: None Oncologic Surgical History: Reports: None Dermatological Surgical History: Reports: None Social & Family History - Family History Family Medical History: Noncontributory Cardiac: Reports: [place] Respiratory: Reports: None Endocrine/Metabolic: Reports: Diabetes, Type I Hematologic: Reports: None Oncologic: Reports: Other (See Below) Other Oncologic Family History: Father side has cancer but patient doesn't know exactly what kind of CA - Tobacco Use Smoking Status *Q: Former Smoker Used Tobacco, but Quit: No Month Tobacco Last Used: 2009 Second Hand Smoke Exposure: Yes - Caffeine Use Caffeine Use: Reports: Soda - Alcohol Use Days Per Week of Alcohol Use: 1 Number of Drinks Per Day: 2 Total Drinks Per Week: 2 - Recreational Drug Use Recreational Drug Use: No - Living Situation & Occupation Living situation: Reports: Occupation: Retired ED ROS GENERAL - Review of Systems Review Of Systems: ROS reveals no pertinent complaints other than HPI. ED EXAM, GENERAL - Physical Exam Exam: See Below (See dictation) Course - Vital Signs Last Recorded V/S: Last Vital Signs Temp 36.6 C 04/18/17 12:22 Pulse 92 04/18/17 12:22 Resp 18 04/18/17 12:22 BP 137/95 H 04/18/17 12:22 Pulse Ox 97 04/18/17 12:30 Orthostatic Blood Pressure [ 108/69 Standing] Orthostatic Blood Pressure [ 142/85 Supine] - Orders/Labs/Meds Orders: Active Orders 24 hr Category Date Time Status Patient Status [ADT] Stat ADT 04/18/17 14:53 Ordered Cardiac Monitoring [RC] . DIRECTED Care 04/18/17 12:30 Active EKG Documentation Completion [RC] STAT Care 04/18/17 12:12 Active EKG Documentation Completion [RC] STAT Care 04/18/17 12:30 Active Orthostatic Vital Signs [RC] ASDIRECTED Care 04/18/17 12:31 Active Oxygen Therapy, ED [RC] ASDIRECTED Care 04/18/17 12:30 Active Pulse Oximetry [RC] ASDIRECTED Care 04/18/17 12:30 Active Chest 1V Frontal [CR] Stat Exams 04/18/17 12:31 Taken Head wo Cont [CT] Stat Exams 04/18/17 12:31 Taken Hip Min 2V or 3V w Pelvis Rt [CR] Stat Exams 04/18/17 12:32 Taken Sodium Chloride 0.9% [Normal Saline] 1,000 ml Med 04/18/17 14:30 Active IV ASDIRECTED Sodium Chloride 0.9% [Saline Flush] Med 04/18/17 12:31 Active 10 ml FLUSH ASDIRECTED PRN Sodium Chloride 0.9% [Saline Flush] Med 04/18/17 12:31 Active 2.5 ml FLUSH ASDIRECTED PRN Saline Lock Insert [OM.PC] Stat Oth 04/18/17 12:30 Ordered Medication Orders Sodium Chloride (Normal Saline) 1,000 mls @ 100 mls/hr IV ASDIRECTED ERICK Last Admin: 04/18/17 14:25 Dose: 100 mls/hr Sodium Chloride (Saline Flush) 10 ml FLUSH ASDIRECTED PRN PRN Reason: Keep Vein Open Last Admin: 04/18/17 12:41 Dose: 10 ml Sodium Chloride (Saline Flush) 2.5 ml FLUSH ASDIRECTED PRN PRN Reason: Keep Vein Open Last Admin: 04/18/17 12:41 Dose: 2.5 ml Labs: Laboratory Tests 04/18/17 04/18/17 04/18/17 Range/Units 12:45 12:45 12:45 WBC 4.96 (4.0-11.0) K/uL RBC 4.57 (4.50-5.90) M/uL Hgb 12.7 L (13.0-17.0) g/dL Hct 38.6 (38.0-50.0) % MCV 84.5 (80.0-98.0) fL MCH 27.8 (27.0-32.0) pg MCHC 32.9 (31.0-37.0) g/dL RDW Std Deviation 47.6 (28.0-62.0) fl RDW Coeff of Ethan 15 (11.0-15.0) % Plt Count 265 (150-400) K/uL MPV 9.40 (7.40-12.00) fL Neut % (Auto) 55.7 (48.0-80.0) % Lymph % (Auto) 29.0 (16.0-40.0) % [place] % (Auto) 12.3 (0.0-15.0) % Eos % (Auto) 2.8 (0.0-7.0) % Baso % (Auto) 0.2 (0.0-1.5) % Neut # (Auto) 2.8 (1.4-5.7) K/uL Lymph # (Auto) 1.4 (0.6-2.4) K/uL [place] # (Auto) 0.6 (0.0-0.8) K/uL Eos # (Auto) 0.1 (0.0-0.7) K/uL Baso # (Auto) 0.0 (0.0-0.1) K/uL Nucleated RBC % 0.0 /100WBC Nucleated RBCs # 0 K/uL INR 0.99 (0.86-1.11) Sodium 140 (136-146) mmol/L Potassium 3.7 (3.5-5.1) mmol/L Chloride 106 (98-110) mmol/L Carbon Dioxide 23 (21-31) mmol/L BUN 16 (6.0-23.0) mg/dL Creatinine 0.8 (0.6-1.5) mg/dL Est Cr Clr Drug Dosing TNP Estimated GFR (MDRD) > 60.0 ml/min Glucose 116 H (60-110) mg/dL Calcium 9.5 (8.8-10.8) mg/dL Total Bilirubin 0.4 (0.1-1.5) mg/dL AST 17 (5-40) IU/L ALT 16 (8-54) IU/L Alkaline Phosphatase 71 (40-150) Troponin I < 0.10 (0.0-0.29) NG/ML Total Protein 7.5 (6.0-8.0) g/dL Albumin 4.4 (3.4-4.8) g/dL Globulin 3.1 (2.0-3.5) g/dL Albumin/Globulin Ratio 1.4 (1.3-2.8) Meds: Medications Generic Name Dose Route Start Last Admin Trade Name Freq PRN Reason Stop Dose Admin Sodium Chloride 1,000 mls @ 100 mls/hr 04/18/17 14:30 04/18/17 14:25 Normal Saline IV 100 mls/hr ASDIRECTED ERICK Administration Sodium Chloride 10 ml 04/18/17 12:31 04/18/17 12:41 Saline Flush FLUSH 10 ml ASDIRECTED PRN Administration Keep Vein Open Sodium Chloride 2.5 ml 04/18/17 12:31 04/18/17 12:41 Saline Flush FLUSH 2.5 ml ASDIRECTED PRN Administration Keep Vein Open Discontinued Medications Generic Name Dose Route Start Last Admin Trade Name Freq PRN Reason Stop Dose Admin Aspirin 324 mg 04/18/17 12:31 04/18/17 12:40 Aspirin PO 04/18/17 12:32 324 mg ONETIME ONE Administration Morphine Sulfate 2 mg 04/18/17 12:33 04/18/17 12:41 Morphine IVPUSH 04/18/17 12:34 2 mg ONETIME ONE Administration Departure - Departure Time of Disposition: 14:56 Disposition: Refer to Observation Condition: Good Clinical Impression: Syncope Qualifiers: Syncope type: unspecified Qualified Code(s): R55 - Syncope and collapse - Discharge Information Referrals: PCP,None [Primary Care Provider] - Forms: ED Department Discharge - My Orders Last 24 Hours: My Active Orders 04/18/17 12:30 Cardiac Monitoring [RC] . DIRECTED EKG Documentation Completion [RC] STAT Oxygen Therapy, ED [RC] ASDIRECTED Pulse Oximetry [RC] ASDIRECTED Saline Lock Insert [OM.PC] Stat 04/18/17 12:31 Orthostatic Vital Signs [RC] ASDIRECTED Chest 1V Frontal [CR] Stat Head wo Cont [CT] Stat Sodium Chloride 0.9% [Saline Flush] 10 ml FLUSH ASDIRECTED PRN Sodium Chloride 0.9% [Saline Flush] 2.5 ml FLUSH ASDIRECTED PRN 04/18/17 12:32 Hip Min 2V or 3V w Pelvis Rt [CR] Stat 04/18/17 14:30 Sodium Chloride 0.9% [Normal Saline] 1,000 ml IV ASDIRECTED 04/18/17 14:53 Patient Status [ADT] Stat - Assessment/Plan Last 24 Hours: My Active Orders 04/18/17 12:30 Cardiac Monitoring [RC] . DIRECTED EKG Documentation Completion [RC] STAT Oxygen Therapy, ED [RC] ASDIRECTED Pulse Oximetry [RC] ASDIRECTED Saline Lock Insert [OM.PC] Stat 04/18/17 12:31 Orthostatic Vital Signs [RC] ASDIRECTED Chest 1V Frontal [CR] Stat Head wo Cont [CT] Stat Sodium Chloride 0.9% [Saline Flush] 10 ml FLUSH ASDIRECTED PRN Sodium Chloride 0.9% [Saline Flush] 2.5 ml FLUSH ASDIRECTED PRN 04/18/17 12:32 Hip Min 2V or 3V w Pelvis Rt [CR] Stat 04/18/17 14:30 Sodium Chloride 0.9% [Normal Saline] 1,000 ml IV ASDIRECTED 04/18/17 14:53 Patient Status [ADT] Stat
[2017-04-18 13:15] LABS: CHLORIDE,CL 106 mmol/L (98-110); SODIUM,NA 140 mmol/L (136-146)
[2017-04-18] MEDS ORDERED: Sodium Chloride 0.9% 1,000 ML IV SCH (14:30)
[2017-04-18] MEDS ORDERED: Ondansetron 4 MG/2 ML SDV IVPUSH PRN (16:20)
[2017-04-18] MEDS ORDERED: Acetaminophen 325 MG Tab PO PRN (16:20)
[2017-04-18] MEDS ORDERED: Sennosides 8.6 MG Tab PO PRN (16:21)
--- NOTE | 2017-04-18 16:33 | PCM.HP ---
H&P History of Present Illness - General Admit Problem/Dx: Admission Diagnosis/Problem Admission Diagnosis/Problem Syncope - History of Present Illness Initial Comments - Free Text/Narative: 71 yo male who presents to the ED following a syncopal episode. He reported preceding or proceeding symptoms. He reports standing at home and then walking up on the ground. In the ED he Had CT of head which reported no evidence of acue intracranial abnormality. CXR: reported no acute cardiopulmonary pathology. EKG and initial troponin were negative. He was noted to be orthostatic with BP of 145/95 supine which decreased to 108/64 when standing Left Chest Pain Score (Numeric/FACES): 4 - Related Data Allergies/Adverse Reactions: Allergies Allergy/AdvReac Type Severity Reaction Status Date / Time No Known Allergies Allergy Verified 01/31/17 14:50 Home Medications: Home Meds Carvedilol 3.125 mg PO BID 09/22/16 [History] Isosorbide Mononitrate [Imdur] 30 mg PO DAILY 09/22/16 [History] Pantoprazole [ProTONIX] 40 mg PO ACBREAKFAST 09/22/16 [History] Pravastatin [Pravachol] 40 mg PO DAILY 09/22/16 [History] Nitroglycerin [Nitrostat] 0.4 mg SL Q5M PRN 11/22/16 [History] Acetaminophen [Tylenol Extra Strength] 1,000 mg PO TID PRN 04/19/17 [History] Clopidogrel [Plavix] 75 mg PO DAILY 04/19/17 [History] Furosemide 20 mg PO DAILY 04/19/17 [History] Nabumetone 500 mg PO BIDMEALS PRN 04/19/17 [History] PARoxetine [Paxil] 10 mg PO DAILY 04/19/17 [History] traMADol HCl [Tramadol HCl] 50 mg PO TID PRN 04/19/17 [History] Past Medical History HEENT History: Reports: None Cardiovascular History: Reports: High Cholesterol, Hypertension, [place], Stents Respiratory History: Reports: None Gastrointestinal History: Reports: None Genitourinary History: Reports: None Musculoskeletal History: Reports: None Neurological History: Reports: None Psychiatric History: Reports: None Endocrine/Metabolic History: Reports: None Hematologic History: Reports: None Immunologic History: Reports: None Oncologic (Cancer) History: Reports: None Dermatologic History: Reports: None - Infectious Disease History Infectious Disease History: Reports: None - Past Surgical History Head Surgeries/Procedures: Reports: None HEENT Surgical History: Reports: Tonsillectomy, Other (See Below) Other HEENT Surgeries/Procedures: Dental extraction. Throat Surgery Cardiovascular Surgical History: Reports: Coronary Artery Stent Respiratory Surgical History: Reports: None Male Surgical History: Reports: None Endocrine Surgical History: Reports: None Musculoskeletal Surgical History: Reports: None Oncologic Surgical History: Reports: None Dermatological Surgical History: Reports: None Social & Family History - Family History Family Medical History: Noncontributory Cardiac: Reports: [place] Respiratory: Reports: None Endocrine/Metabolic: Reports: Diabetes, Type I Hematologic: Reports: None Oncologic: Reports: Other (See Below) Other Oncologic Family History: Father side has cancer but patient doesn't know exactly what kind of CA - Tobacco Use Smoking Status *Q: Former Smoker Used Tobacco, but Quit: No Month Tobacco Last Used: 2009 Second Hand Smoke Exposure: Yes - Caffeine Use Caffeine Use: Reports: Soda - Alcohol Use Days Per Week of Alcohol Use: 1 Number of Drinks Per Day: 2 Total Drinks Per Week: 2 - Recreational Drug Use Recreational Drug Use: No - Living Situation & Occupation Living situation: Reports: Occupation: Retired H&P Review of Systems - Review of Systems: Review Of Systems: ROS reveals no pertinent complaints other than HPI. Exam - Exam Exam: See Below - Vital Signs Vital Signs: Last Vital Signs Temp 36.6 C 04/18/17 12:22 Pulse 92 04/18/17 12:22 Resp 18 04/18/17 12:22 BP 137/95 H 04/18/17 12:22 Pulse Ox 97 04/18/17 12:30 - Exam General: Alert, Oriented HEENT: Mucosa Moist & [place] Lungs: Clear to Auscultation, Normal Respiratory Effort Cardiovascular: Regular Rate, Regular Rhythm GI/Abdominal Exam: Soft, Non-Tender Extremities: No Pedal Edema Skin: Warm, Dry, Intact - Patient Data Result Diagrams: 04/19/17 05:17 04/19/17 05:17 *Q Meaningful Use (ADM) - VTE *Q VTE Criteria *Q: - Stroke *Q Stroke Criteria *Q: - AMI *Q AMI Criteria *Q: Problem List Initiated/Reviewed/Updated: Yes Orders Last 24hrs: Active Orders 24 hr Category Date Time Status Antiembolic Devices [RC] PER UNIT ROUTINE Care 04/18/17 16:21 Ordered Oxygen Therapy [RC] PRN Care 04/18/17 16:20 Ordered VTE/DVT Education [RC] PER UNIT ROUTINE Care 04/18/17 16:20 Ordered Vital Signs [RC] Q4H Care 04/18/17 16:20 Ordered Regular Diet [DIET] Diet 04/18/17 Breakfast Ordered BASIC METABOLIC PANEL,BMP [CHEM] AM Lab 04/19/17 05:11 Ordered CBC WITH AUTO DIFF [HEME] AM Lab 04/19/17 05:11 Ordered TROPONIN I [CHEM] Q6H Lab 04/18/17 19:00 Ordered TROPONIN I [CHEM] Q6H Lab 04/19/17 01:00 Ordered Acetaminophen [Tylenol] Med 04/18/17 16:20 Ordered 650 mg PO Q4H PRN Acetaminophen/oxyCODONE [Percocet 325-5 MG] Med 04/18/17 16:21 Ordered 1 tab PO Q6H PRN Aspirin [Halfprin] Med 04/19/17 09:00 Ordered 81 mg PO DAILY Carvedilol [Coreg] Med 04/18/17 21:00 Ordered 3.125 mg PO BID Enoxaparin [Lovenox] Med 04/19/17 09:00 Ordered 40 mg SUBCUT DAILY Isosorbide Mononitrate [Imdur] Med 04/19/17 09:00 Ordered 30 mg PO DAILY Lisinopril Med 04/19/17 09:00 Ordered 2.5 mg PO DAILY Ondansetron [Zofran] Med 04/18/17 16:20 Ordered 4 mg IVPUSH Q4H PRN Pantoprazole [ProTONIX] Med 04/19/17 07:30 Ordered 40 mg PO ACBREAKFAST Pravastatin [Pravachol] Med 04/19/17 09:00 Ordered 40 mg PO DAILY Sennosides [Senna] Med 04/18/17 16:21 Ordered 8.6 mg PO BID PRN amLODIPine [Norvasc] Med 04/18/17 21:00 Ordered 5 mg PO BID Sequential Compression Device [OM.PC] Per Unit Routine Oth 04/18/17 16:20 Ordered Resuscitation Status Routine Resus Stat 04/18/17 16:20 Ordered Medication Orders Acetaminophen (Tylenol) 650 mg PO Q4H PRN PRN Reason: Pain (Mild 1-3)/fever Amlodipine Besylate (Norvasc) 5 mg PO BID [facility] Aspirin (Halfprin) 81 mg PO DAILY [facility] Carvedilol (Coreg) 3.125 mg PO BIDMEALS ERICK Enoxaparin Sodium (Lovenox) 40 mg SUBCUT DAILY [facility] Sodium Chloride (Normal Saline) 1,000 mls @ 100 mls/hr IV ASDIRECTED [facility] Last Admin: 04/18/17 14:25 Dose: 100 mls/hr Isosorbide Mononitrate (Imdur) 30 mg PO DAILY ERICK Lisinopril (Prinivil) 2.5 mg PO DAILY [facility] Ondansetron HCl (Zofran) 4 mg IVPUSH Q4H PRN PRN Reason: Nausea Oxycodone/Acetaminophen (Percocet 325-5 Mg) 1 tab PO Q6H PRN PRN Reason: Pain (mild 1-3) Pantoprazole Sodium (Protonix) 40 mg PO ACBREAKFAST [facility] Pravastatin Sodium (Pravachol) 40 mg PO BEDTIME [facility] Senna (Senna) 8.6 mg PO BID PRN PRN Reason: Constipation Sodium Chloride (Saline Flush) 10 ml FLUSH ASDIRECTED PRN PRN Reason: Keep Vein Open Last Admin: 04/18/17 12:41 Dose: 10 ml Sodium Chloride (Saline Flush) 2.5 ml FLUSH ASDIRECTED PRN PRN Reason: Keep Vein Open Last Admin: 04/18/17 12:41 Dose: 2.5 ml Assessment/Plan Comment:: 71 yo male admitted following a synocpal episode who is found to be orthostatic. Will hydrate with IV fluids and monitor on telemetry
[2017-04-18] MEDS: Sodium Chloride 0.9% 1,000 ML IV SCH (20:00)
[2017-04-18] MEDS: Pravastatin 40 MG Tab PO SCH (20:32)
[2017-04-18] MEDS: amLODIPine 5 MG Tab PO SCH (20:32)
[2017-04-18] MEDS: Carvedilol 3.125 MG Tab PO SCH (20:34)
[2017-04-18] MEDS: Acetaminophen/oxyCODONE 325-5 MG Tab PO PRN (22:11)
[2017-04-19 06:03] LABS: CHLORIDE,CL 110 mmol/L (98-110); SODIUM,NA 142 mmol/L (136-146)
[2017-04-19] MEDS: Pantoprazole 40 MG Tab.CR PO SCH (07:51)
[2017-04-19] MEDS ORDERED: Lisinopril 5 MG Tab PO SCH (09:00)
[2017-04-19] MEDS: Aspirin 81 MG Tab.EC PO SCH ×2 (09:10→10:40)
[2017-04-19] MEDS: Carvedilol 3.125 MG Tab PO SCH ×3 (09:10→16:29)
[2017-04-19] MEDS: Isosorbide Mononitrate 30 MG Tab.ER PO SCH ×2 (09:10→10:39)
[2017-04-19] MEDS: amLODIPine 5 MG Tab PO SCH ×2 (09:11→10:40)
[2017-04-19] MEDS: Enoxaparin 40 MG/0.4 ML Syringe SUBCUT SCH (09:11)
[2017-04-19] MEDS: Sodium Chloride 0.9% 1,000 ML IV SCH (09:13)
[2017-04-19] MEDS: Clopidogrel 75 MG Tab PO SCH (10:30)
--- NOTE | 2017-04-19 12:26 | PCM.PN ---
- General Info Date of Service: 04/19/17 Admission Dx/Problem (Free Text): Admission Diagnosis/Problem Admission Diagnosis/Problem Syncope Subjective Update: Reports still having some dizzy spells when initially standing up, sometimes. Not all the time. No chest pain or SOB. No diarrhea. He does report having diarrhea a couple days ago, for 1 day. He reports being complaint with medication. Reports drinking 1-2 beers daily, but has hx of heavy alcohol use, or 6 or more daily. Functional Status: Reports: Pain Controlled, Tolerating Diet, Ambulating, Urinating - Review of Systems General: Reports: No Symptoms. Denies: Fever HEENT: Reports: No Symptoms. Denies: Headaches, Sinus Congestion, Sore Throat, Visual Changes Pulmonary: Reports: No Symptoms. Denies: Shortness of Breath, Cough, Sputum Cardiovascular: Reports: No Symptoms. Denies: Chest Pain, Edema Gastrointestinal: Reports: No Symptoms. Denies: Abdominal Pain, Nausea, Vomiting Genitourinary: Reports: No Symptoms. Denies: Dysuria, Frequency, Burning, Pain Musculoskeletal: Reports: No Symptoms. Denies: Neck Pain Neurological: Reports: Dizziness Psychiatric: Reports: Anxiety (wondering what is going on and become tearful when asking. ). Denies: Confusion - Patient Data Vitals - Most Recent: Last Vital Signs Temp 97.2 F 04/19/17 07:30 Pulse 87 04/19/17 10:40 Resp 16 04/19/17 07:30 BP 134/87 04/19/17 10:40 Pulse Ox 97 04/19/17 07:30 Weight - Most Recent: 60.509 kg I&O - Last 24 Hours: Intake & Output 04/18/17 04/19/17 04/19/17 22:59 06:59 14:59 Intake Total 400 Output Total 400 Balance 0 Lab Results Last 24 Hours: Laboratory Results - last 24 hr 04/18/17 04/19/17 04/19/17 Range/Units 18:50 01:05 05:17 WBC 4.22 (4.0-11.0) K/uL RBC 4.03 L (4.50-5.90) M/uL Hgb 11.1 L (13.0-17.0) g/dL Hct 34.5 L (38.0-50.0) % MCV 85.6 (80.0-98.0) fL MCH 27.5 (27.0-32.0) pg MCHC 32.2 (31.0-37.0) g/dL RDW Std Deviation 49.0 (28.0-62.0) fl RDW Coeff of Ethan 16 H (11.0-15.0) % Plt Count 220 (150-400) K/uL MPV 9.10 (7.40-12.00) fL Neut % (Auto) 42.9 L (48.0-80.0) % Lymph % (Auto) 40.0 (16.0-40.0) % Pender % (Auto) 12.1 (0.0-15.0) % Eos % (Auto) 4.5 (0.0-7.0) % Baso % (Auto) 0.5 (0.0-1.5) % Neut # (Auto) 1.8 (1.4-5.7) K/uL Lymph # (Auto) 1.7 (0.6-2.4) K/uL Pender # (Auto) 0.5 (0.0-0.8) K/uL Eos # (Auto) 0.2 (0.0-0.7) K/uL Baso # (Auto) 0.0 (0.0-0.1) K/uL Nucleated RBC % 0.0 /100WBC Nucleated RBCs # 0 K/uL Sodium (136-146) mmol/L Potassium (3.5-5.1) mmol/L Chloride (98-110) mmol/L Carbon Dioxide (21-31) mmol/L BUN (6.0-23.0) mg/dL Creatinine (0.6-1.5) mg/dL Est Cr Clr Drug Dosing mL/min Estimated GFR (MDRD) ml/min Glucose (60-110) mg/dL Calcium (8.8-10.8) mg/dL Troponin I < 0.10 < 0.10 (0.0-0.29) NG/ML 04/19/17 Range/Units 05:17 WBC (4.0-11.0) K/uL RBC (4.50-5.90) M/uL Hgb (13.0-17.0) g/dL Hct (38.0-50.0) % MCV (80.0-98.0) fL MCH (27.0-32.0) pg MCHC (31.0-37.0) g/dL RDW Std Deviation (28.0-62.0) fl RDW Coeff of Ethan (11.0-15.0) % Plt Count (150-400) K/uL MPV (7.40-12.00) fL Neut % (Auto) (48.0-80.0) % Lymph % (Auto) (16.0-40.0) % Pender % (Auto) (0.0-15.0) % Eos % (Auto) (0.0-7.0) % Baso % (Auto) (0.0-1.5) % Neut # (Auto) (1.4-5.7) K/uL Lymph # (Auto) (0.6-2.4) K/uL Pender # (Auto) (0.0-0.8) K/uL Eos # (Auto) (0.0-0.7) K/uL Baso # (Auto) (0.0-0.1) K/uL Nucleated RBC % /100WBC Nucleated RBCs # K/uL Sodium 142 (136-146) mmol/L Potassium 3.5 (3.5-5.1) mmol/L Chloride 110 (98-110) mmol/L Carbon Dioxide 25 (21-31) mmol/L BUN 17 (6.0-23.0) mg/dL Creatinine 0.8 (0.6-1.5) mg/dL Est Cr Clr Drug Dosing 74.59 mL/min Estimated GFR (MDRD) > 60.0 ml/min Glucose 105 (60-110) mg/dL Calcium 8.9 (8.8-10.8) mg/dL Troponin I (0.0-0.29) NG/ML Med Orders - Current: Current Medications Acetaminophen (Tylenol) 650 mg PO Q4H PRN PRN Reason: Pain (Mild 1-3)/fever Aspirin (Halfprin) 81 mg PO DAILY [facility] Last Admin: 04/19/17 10:40 Dose: 81 mg Carvedilol (Coreg) 3.125 mg PO BIDMEALS [facility] Last Admin: 04/19/17 10:40 Dose: 3.125 mg Clopidogrel Bisulfate (Plavix) 75 mg PO DAILY [facility] Last Admin: 04/19/17 10:30 Dose: 75 mg Enoxaparin Sodium (Lovenox) 40 mg SUBCUT DAILY [facility] Last Admin: 04/19/17 09:11 Dose: 40 mg Sodium Chloride (Normal Saline) 1,000 mls @ 75 mls/hr IV ASDIRECTED [facility] Last Admin: 04/19/17 09:13 Dose: 75 mls/hr Isosorbide Mononitrate (Imdur) 30 mg PO DAILY [facility] Last Admin: 04/19/17 10:39 Dose: 30 mg Ondansetron HCl (Zofran) 4 mg IVPUSH Q4H PRN PRN Reason: Nausea Oxycodone/Acetaminophen (Percocet 325-5 Mg) 1 tab PO Q6H PRN PRN Reason: Pain (mild 1-3) Last Admin: 04/18/17 22:11 Dose: 1 tab Pantoprazole Sodium (Protonix) 40 mg PO ACBREAKFAST [facility] Last Admin: 04/19/17 07:51 Dose: 40 mg Pravastatin Sodium (Pravachol) 40 mg PO BEDTIME [facility] Last Admin: 04/18/17 20:32 Dose: 40 mg Senna (Senna) 8.6 mg PO BID PRN PRN Reason: Constipation Sodium Chloride (Saline Flush) 10 ml FLUSH ASDIRECTED PRN PRN Reason: Keep Vein Open Last Admin: 04/18/17 12:41 Dose: 10 ml Sodium Chloride (Saline Flush) 2.5 ml FLUSH ASDIRECTED PRN PRN Reason: Keep Vein Open Last Admin: 04/18/17 12:41 Dose: 2.5 ml Discontinued Medications Amlodipine Besylate (Norvasc) 5 mg PO BID [facility] Last Admin: 04/19/17 10:40 Dose: Not Given Aspirin (Aspirin) 324 mg PO ONETIME ONE Stop: 04/18/17 12:32 Last Admin: 04/18/17 12:40 Dose: 324 mg Sodium Chloride (Normal Saline) 1,000 mls @ 100 mls/hr IV ASDIRECTED [facility] Last Admin: 04/18/17 14:25 Dose: 100 mls/hr Lisinopril (Prinivil) 2.5 mg PO DAILY [facility] Last Admin: 04/19/17 09:11 Dose: 2.5 mg Morphine Sulfate (Morphine) 2 mg IVPUSH ONETIME ONE Stop: 04/18/17 12:34 Last Admin: 04/18/17 12:41 Dose: 2 mg - Exam General: Alert, Oriented, Cooperative, No Acute Distress HEENT: Pupils Equal, Mucous Membr. Moist/[place] Neck: Supple, +2 Carotid Pulse wo Bruit. No: Lymphadenopathy Lungs: Clear to Auscultation, Normal Respiratory Effort Cardiovascular: Regular Rate, Regular Rhythm GI/Abdominal Exam: Normal Bowel Sounds, Soft, Non-Tender, No Organomegaly, No Distention, No Abnormal Bruit, No Mass, Pelvis Stable Extremities: Normal Inspection, Normal Range of Motion, Non-Tender, No Pedal Edema, Normal Capillary Refill Neurological: Other (takes two times to stand, initial attempt standing become dizzy. at times is dizzy during ambulation. Unable to completely describe dizziness, not sure if the room spins or if he feels out of sort ) Psy/Mental Status: Alert, Normal Affect, Normal Mood - Problem List & Annotations (1) Dizziness SNOMED Code(s): 434800747 Code(s): R42 - DIZZINESS AND GIDDINESS Status: Acute Current Visit: Yes (2) Orthostatic hypotension SNOMED Code(s): 61716852 Code(s): I95.1 - ORTHOSTATIC HYPOTENSION Status: Acute Current Visit: Yes (3) Syncope SNOMED Code(s): 207263013 Code(s): R55 - SYNCOPE AND COLLAPSE Status: Acute Current Visit: Yes Qualifiers: Syncope type: unspecified Qualified Code(s): R55 - Syncope and collapse (4) Coronary artery disease SNOMED Code(s): 04940172 Code(s): I25.10 - ATHSCL HEART DISEASE OF [place] CORONARY ARTERY W/O ANG PCTRS Status: Chronic Priority: Medium Current Visit: No Qualifiers: Associated angina: with unspecified angina (5) HTN (hypertension) SNOMED Code(s): 78178132 Code(s): I10 - ESSENTIAL (PRIMARY) HYPERTENSION Status: Chronic Priority : Medium Current Visit: No Qualifiers: Hypertension type: essential hypertension Qualified Code(s): I10 - Essential (primary) hypertension (6) History of coronary artery stent placement SNOMED Code(s): 986912839 Code(s): Z95.5 - PRESENCE OF CORONARY ANGIOPLASTY IMPLANT AND GRAFT Status : Chronic Priority: Medium Current Visit: No (7) Hyperlipidemia SNOMED Code(s): 28058713 Code(s): E78.5 - HYPERLIPIDEMIA, UNSPECIFIED Status: Chronic Priority: Medium Current Visit: No Qualifiers: Hyperlipidemia type: unspecified Qualified Code(s): E78.5 - Hyperlipidemia , unspecified (8) Anxiety SNOMED Code(s): 28985445 Code(s): F41.9 - ANXIETY DISORDER, UNSPECIFIED Status: Chronic Current Visit: Yes (9) History of alcohol use SNOMED Code(s): 054783656 Code(s): Z87.898 - PERSONAL HISTORY OF OTHER SPECIFIED CONDITIONS Status: Chronic Current Visit: Yes - Problem List Review Problem List Initiated/Reviewed/Updated: Yes - My Orders Last 24 Hours: My Active Orders 04/19/17 09:43 Consult to Physical Therapy [PT Evaluation and Treatment] [CONS] Routine 04/19/17 10:00 Clopidogrel [Plavix] 75 mg PO DAILY 04/19/17 12:30 Folic Acid 1 mg PO DAILY Thiamine [Vitamin B-1] 100 mg PO DAILY - Plan Plan:: 71 yo male admitted following a syncopal episode who is found to be orthostatic. 1. Orthostatic hypotension: Resolved. Will stop IVFs today. He is on Lasix 20 mg at home and reports having 1 day of diarrhea a couple days ago, potentially caused dehydration. Telemetry remains WNL. Complaining of dizziness today. Will have PT evaluate and treat and evaluate for vestibular concerns. 2. Anxiety: On Paxil, this may be the cause of dizziness and Orthostatic Hypotension. May need to wean off and consider new medication. Will arrange follow up with Cardiology, Dr Lopez. 3. CAD: Continue ASA and Plavix. Troponins negative. No chest pain. Hx PCI in December to circumflex. Continue Imdur and Coreg 4. HTN: Continue Imdur Coreg. Holding Lasix due to hypotension and questionable dehydration. Likely restart upon discharge. 5. Hx ETOH abuse: reports he has cut down, drinks 1-2 beers daily, "depending how I feel." Will supplement with Folic acid, thiamine. Potential cause of dizziness? VTE prophylaxis: Lovenox. Dispo: pending PT evaluation, likely in am.
[2017-04-19] MEDS: Thiamine 100 MG Tab PO SCH (13:04)
[2017-04-19] MEDS: Folic Acid 1 MG Tab PO SCH (13:04)
--- NOTE | 2017-04-19 20:27 | CT ---
EXAM DATE: 04/18/17 PATIENT'S AGE: 71 Patient: BERNARD BORREGO Facility: [place], [place] Site . Site : 1945 Study: CT Head [id number]/1/2018 1:44:26 PM Ordering Physician: Doctor Douglas Final Report: Indication: Head trauma. Fall. Technique: Multiaxial CT of the head without contrast. Coronal and sagittal reformats were submitted. Comparison: No prior studies available for comparison at this institution. Findings: There is mild prominence of the ventricles and sulci consistent with parenchymal volume loss. Mild periventricular white matter hypoattenuation is nonspecific but most commonly due to chronic small vessel white matter disease. Midline structures are centrally located. No convincing evidence of intra- or extra-axial fluid collections. The mastoid air cells are clear. No evidence of fracture. Left maxillary sinus and left ethmoid air cell mucosal inflammation.There is mild osseous thickening of the left maxillary sinus borden and inferior bowing of the left orbital floor and increased left orbit volume characteristic of "silent sinus syndrome". Impression: 1. No radiographic evidence of acute intracranial abnormality. 2. Left maxillary sinus and left ethmoid air cell mucosal inflammation. 3. There is mild thickening of the left maxillary sinus borden and inferior bowing of the left orbital floor and increased left orbit volume characteristic of "silent sinus syndrome". Please note that all CT scans at this facility use dose modulation, iterative reconstruction, and/or weight-based dosing when appropriate to reduce radiation dose to as low as reasonably achievable. Dictated by Adrien Roberto MD @ Apr 18 2017 2:03PM (Electronic Signature) Report Signed by Proxy. ETHAN
--- NOTE | 2017-04-19 20:28 | CR ---
EXAM DATE: 04/18/17 PATIENT'S AGE: 71 Patient: BERNARD BORREGO Facility: [place], [place] Site . Site : 1945 Study: XRay Chest [id number]/1/2018 1:59:45 PM Ordering Physician: Doctor Douglas Final Report: INDICATION: Pain. Shortness of breath. TECHNIQUE: Chest 1 view. COMPARISON: 02/16/2017. FINDINGS: Cardiovascular and mediastinum: Heart size and vasculature are normal in caliber and appearance. Mediastinum is within normal limits. Lungs and pleural space: Lungs are clear. No pleural effusion. No pneumothorax. Bones and soft tissues: No acute findings. IMPRESSION: No acute pulmonary process. Dictated by Good Watson MD @ Apr 18 2017 2:29PM (Electronic Signature) Report Signed by Proxy. ETHAN
--- NOTE | 2017-04-19 20:29 | CR ---
EXAM DATE: 04/18/17 PATIENT'S AGE: 71 Patient: BERNARD BORREGO Facility: [place], [place] Site . Site : 1945 Study: XRay Extremity [id number]/1/2018 2:00:22 PM Ordering Physician: Doctor Douglas Final Report: HISTORY: Pain after falling injury. Findings: Three views of the pelvis and right hip are provided. There is a mildly aspherical appearance to the femoral heads bilaterally. There is moderate osteoarthritic change of the right hip joint with mild changes on the left side. There is a smoothly marginated fragment of bone or mineralized material seen along the lateral aspect of the right hip joint which does not have the typical appearance for an acute fracture fragment. This could represent an old fractured osteophyte or loose body. This could also represent developmental variation. No femoral neck or intertrochanteric fracture is seen. No pelvic bone fracture is noted. The sacroiliac joints are unremarkable. Impression: 1. Negative study for acute type fracture. 2. Osteoarthritic changes of the hip joints as discussed, right greater than left. These findings are associated with a mildly aspherical appearance to the femoral heads. 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 Dictated by Sekou Lion MD @ Apr 18 2017 2:30PM (Electronic Signature) Report Signed by Proxy. ETHAN
[2017-04-19] MEDS: Pravastatin 40 MG Tab PO SCH (20:45)
[2017-04-19] MEDS: Acetaminophen/oxyCODONE 325-5 MG Tab PO PRN (20:45)
[2017-04-20] MEDS: Pantoprazole 40 MG Tab.CR PO SCH (06:45)
[2017-04-20] MEDS: Acetaminophen/oxyCODONE 325-5 MG Tab PO PRN (08:18)
[2017-04-20] MEDS: Thiamine 100 MG Tab PO SCH (08:19)
[2017-04-20] MEDS: Aspirin 81 MG Tab.EC PO SCH (08:19)
[2017-04-20] MEDS: Clopidogrel 75 MG Tab PO SCH (08:19)
[2017-04-20] MEDS: Folic Acid 1 MG Tab PO SCH (08:19)
[2017-04-20] MEDS: Enoxaparin 40 MG/0.4 ML Syringe SUBCUT SCH (08:21)
--- NOTE | 2017-04-20 10:21 | PCM.DCSUM1 ---
Discharge Summary - Hospital Course Brief History: 71 yo male with pmh of CAD, PCI in December, CHF, HTN, and hx alcohol abuse presented to the ED following a syncopal episode. He reported no preceding or proceeding symptoms. He reports standing at home and then waking up on the ground. In the ED he had CT of head which reported no evidence of acue intracranial abnormality. CXR: reported no acute cardiopulmonary pathology. EKG and initial troponin were negative. He was noted to be orthostatic with BP of 145/95 supine which decreased to 108/64 when standing. He was admitted due to syncopal episode and orthostatic hypotension. - Discharge Data Discharge Date: 04/20/17 Discharge Disposition: Home, Self-Care 01 Condition: Good - Discharge Diagnosis/Problem(s) (1) Benign paroxysmal positional vertigo of right ear SNOMED Code(s): 626312817 ICD Code: H81.11 - BENIGN PAROXYSMAL VERTIGO, RIGHT EAR Status: Acute (2) Dizziness SNOMED Code(s): 440151779 ICD Code: R42 - DIZZINESS AND GIDDINESS Status: Acute (3) Orthostatic hypotension SNOMED Code(s): 75529585 ICD Code: I95.1 - ORTHOSTATIC HYPOTENSION Status: Resolved (4) Syncope SNOMED Code(s): 638898096 ICD Code: R55 - SYNCOPE AND COLLAPSE Status: Resolved Qualifiers: Syncope type: unspecified Qualified Code(s): R55 - Syncope and collapse (5) Coronary artery disease SNOMED Code(s): 44937144 ICD Code: I25.10 - ATHSCL HEART DISEASE OF [place] CORONARY ARTERY W/O ANG PCTRS Status: Chronic Priority: Medium Qualifiers: Associated angina: with unspecified angina (6) HTN (hypertension) SNOMED Code(s): 67409886 ICD Code: I10 - ESSENTIAL (PRIMARY) HYPERTENSION Status: Chronic Priority : Medium Qualifiers: Hypertension type: essential hypertension Qualified Code(s): I10 - Essential (primary) hypertension (7) History of coronary artery stent placement SNOMED Code(s): 276145572 ICD Code: Z95.5 - PRESENCE OF CORONARY ANGIOPLASTY IMPLANT AND GRAFT Status : Chronic Priority: Medium (8) Hyperlipidemia SNOMED Code(s): 53766566 ICD Code: E78.5 - HYPERLIPIDEMIA, UNSPECIFIED Status: Chronic Priority: Medium Qualifiers: Hyperlipidemia type: unspecified Qualified Code(s): E78.5 - Hyperlipidemia , unspecified (9) Anxiety SNOMED Code(s): 23580286 ICD Code: F41.9 - ANXIETY DISORDER, UNSPECIFIED Status: Chronic (10) History of alcohol use SNOMED Code(s): 459391195 ICD Code: Z87.898 - PERSONAL HISTORY OF OTHER SPECIFIED CONDITIONS Status: Chronic - Patient Summary/Data Consults: Consultations 04/19/17 09:43 Consult to Physical Therapy [PT Evaluation and Treatment] [CONS] Routine - Patient Instructions Diet: Heart Healthy Diet Activity: No Strenuous Activities, Rest and Relax Today Driving: Do Not Drive Showering/Bathing: May Shower Notify Provider of: Fever, Increased Pain, Swelling and Redness, Drainage, Nausea and/or Vomiting - Discharge Plan Home Medications: Home Meds Carvedilol 3.125 mg PO BID 09/22/16 [History] Isosorbide Mononitrate [Imdur] 30 mg PO DAILY 09/22/16 [History] Pantoprazole [ProTONIX] 40 mg PO ACBREAKFAST 09/22/16 [History] Pravastatin [Pravachol] 40 mg PO DAILY 09/22/16 [History] Nitroglycerin [Nitrostat] 0.4 mg SL Q5M PRN 11/22/16 [History] Acetaminophen [Tylenol Extra Strength] 1,000 mg PO TID PRN 04/19/17 [History] Clopidogrel [Plavix] 75 mg PO DAILY 04/19/17 [History] Nabumetone 500 mg PO BIDMEALS PRN 04/19/17 [History] PARoxetine [Paxil] 10 mg PO DAILY 04/19/17 [History] traMADol HCl [Tramadol HCl] 50 mg PO TID PRN 04/19/17 [History] Aspirin [Halfprin] 81 mg PO DAILY #0 tab.ec 04/20/17 [Rx] Furosemide 20 mg PO DAILY #0 04/20/17 [Rx] Patient Handouts: Syncope, [id number] Referrals: Bo Lopez MD [Physician] - 04/27/17 8:30 am Eliane Jang NP [Nurse Practitioner] - 04/28/17 2:30 pm - Discharge Summary/Plan Comment DC Time >30 min.: No Discharge Summary/Plan Comment: Admission Diagnoses: Syncope Dizziness Orthostatic hypotension CAD Recent PCI (December) HTN Hyperlipidemia Anxiety Hx alcohol use Discharge Diagnoses BPPV R ear Orthostatic hypotension-resolved CAD Recent PCI (December) HTN Hyperlipidemia Anxiety Hx alcohol use Sheldon was admitted and treated with gentle IVFs for Orthostatic hypotension. Initially home medication list was incorrect, was this was corrected it was noted he was taking Lasix 20 mg daily. He reported having a day for diarrhea and conitnued taking all his medications. This likely dehydrated him some cause the orthostatic hypotension. Once this was resolved he continued to complain of dizziness when changing position, but otherwise unable to described how it felt. PT was consulted and evaluated and treated for vestibular concerns, he was noted to have BPPV to R ear. He was feeling much today and very eager to be discharged home. He will be continued on all medications at home, except to Hold his Lasix until follow up with Dr Lopez. He will also be set up to see PT as outpatient for further treatment of BPPV. He denies chest pain today, no further orthostatic hypotension and very happy to be feeling better. He is to return to ED or clinic if concerns should arise. Follow up also arranged with PCP, Eliane Jang NP. - General Info Date of Service: 04/20/17 Admission Dx/Problem (Free Text: Admission Diagnosis/Problem Admission Diagnosis/Problem Syncope Subjective Update: Feeling much better today. No chest pain or SOB. Dizziness remains slightly but is much better than it was before. Requesting discharge home today. Functional Status: Reports: Pain Controlled, Tolerating Diet, Ambulating, Urinating - Review of Systems HEENT: Reports: No Symptoms. Denies: Headaches, Sore Throat, Rhinitis, Visual Changes Pulmonary: Reports: No Symptoms. Denies: Shortness of Breath Cardiovascular: Reports: No Symptoms. Denies: Chest Pain, Palpitations, Dyspnea on Exertion, Lightheadedness Gastrointestinal: Reports: No Symptoms. Denies: Abdominal Pain, Nausea, Vomiting Musculoskeletal: Reports: No Symptoms. Denies: Neck Pain, Shoulder Pain Skin: Reports: No Symptoms Neurological: Reports: Dizziness (much better than it was, slight dizziness intermittently) Psychiatric: Reports: No Symptoms - Patient Data Vitals - Most Recent: Last Vital Signs Temp 97.7 F 04/20/17 08:00 Pulse 73 04/20/17 08:00 Resp 16 01/03/18 08:00 BP 103/69 04/20/17 08:00 Pulse Ox 95 04/20/17 08:00 Orthostatic Blood Pressure [ 100/71 Sitting] Orthostatic Blood Pressure [ 113/78 Standing] Orthostatic Blood Pressure [ 121/78 Supine] Weight - Most Recent: 60.509 kg I&O - Last 24 hours: Intake & Output 04/19/17 04/20/17 04/20/17 22:59 06:59 14:59 Intake Total 650 400 Output Total 1500 675 Balance -850 -275 Med Orders - Current: Current Medications Acetaminophen (Tylenol) 650 mg PO Q4H PRN PRN Reason: Pain (Mild 1-3)/fever Aspirin (Halfprin) 81 mg PO DAILY [facility] Last Admin: 04/20/17 08:19 Dose: 81 mg Carvedilol (Coreg) 3.125 mg PO BIDMEALS [facility] Last Admin: 04/19/17 16:29 Dose: 3.125 mg Clopidogrel Bisulfate (Plavix) 75 mg PO DAILY [facility] Last Admin: 04/20/17 08:19 Dose: 75 mg Enoxaparin Sodium (Lovenox) 40 mg SUBCUT DAILY [facility] Last Admin: 04/20/17 08:21 Dose: 40 mg Folic Acid (Folic Acid) 1 mg PO DAILY [facility] Last Admin: 04/20/17 08:19 Dose: 1 mg Isosorbide Mononitrate (Imdur) 30 mg PO DAILY [facility] Last Admin: 04/19/17 10:39 Dose: 30 mg Ondansetron HCl (Zofran) 4 mg IVPUSH Q4H PRN PRN Reason: Nausea Oxycodone/Acetaminophen (Percocet 325-5 Mg) 1 tab PO Q6H PRN PRN Reason: Pain (mild 1-3) Last Admin: 04/20/17 08:18 Dose: 1 tab Pantoprazole Sodium (Protonix) 40 mg PO ACBREAKFAST [facility] Last Admin: 04/20/17 06:45 Dose: 40 mg Pravastatin Sodium (Pravachol) 40 mg PO BEDTIME [facility] Last Admin: 04/19/17 20:45 Dose: 40 mg Senna (Senna) 8.6 mg PO BID PRN PRN Reason: Constipation Sodium Chloride (Saline Flush) 10 ml FLUSH ASDIRECTED PRN PRN Reason: Keep Vein Open Last Admin: 04/18/17 12:41 Dose: 10 ml Sodium Chloride (Saline Flush) 2.5 ml FLUSH ASDIRECTED PRN PRN Reason: Keep Vein Open Last Admin: 04/18/17 12:41 Dose: 2.5 ml Thiamine HCl (Vitamin B-1) 100 mg PO DAILY [facility] Last Admin: 04/20/17 08:19 Dose: 100 mg Discontinued Medications Amlodipine Besylate (Norvasc) 5 mg PO BID [facility] Last Admin: 04/19/17 10:40 Dose: Not Given Aspirin (Aspirin) 324 mg PO ONETIME ONE Stop: 04/18/17 12:32 Last Admin: 04/18/17 12:40 Dose: 324 mg Sodium Chloride (Normal Saline) 1,000 mls @ 100 mls/hr IV ASDIRECTED [facility] Last Admin: 04/18/17 14:25 Dose: 100 mls/hr Sodium Chloride (Normal Saline) 1,000 mls @ 75 mls/hr IV ASDIRECTED [facility] Last Admin: 04/19/17 09:13 Dose: 75 mls/hr Lisinopril (Prinivil) 2.5 mg PO DAILY [facility] Last Admin: 04/19/17 09:11 Dose: 2.5 mg Morphine Sulfate (Morphine) 2 mg IVPUSH ONETIME ONE Stop: 04/18/17 12:34 Last Admin: 04/18/17 12:41 Dose: 2 mg - Exam General: Reports: Alert, Oriented, Cooperative, No Acute Distress Neck: Reports: Supple Lungs: Reports: Clear to Auscultation, Normal Respiratory Effort Cardiovascular: Reports: Regular Rate, Regular Rhythm GI/Abdominal Exam: Normal Bowel Sounds, Soft, Non-Tender, No Organomegaly, No Distention, No Abnormal Bruit, No Mass, Pelvis Stable Back Exam: Reports: Normal Inspection, Full Range of Motion Extremities: Normal Inspection, Normal Range of Motion, Non-Tender, No Pedal Edema, Normal Capillary Refill Neurological: Reports: No New Focal Deficit Psy/Mental Status: Reports: Alert, Normal Affect, Normal Mood *Q Meaningful Use (DIS) - VTE *Q VTE Criteria *Q: - Stroke *Q Stroke Criteria *Q: - AMI *Q AMI Criteria *Q:
[2017-04-20] MEDS: Carvedilol 3.125 MG Tab PO SCH (11:58)
[2017-04-20 11:59] VITALS: BP 140/96
[2017-04-20] MEDS: Isosorbide Mononitrate 30 MG Tab.ER PO SCH (11:59)
== END 2017-04-20 12:30 | disposition home or self-care (01) ==
LOC: MW.ED 12:12 → MW.MS 14:53 → UNDODISOB 04-20 12:30
PROVIDERS: ADMIT Internal Medicine; ATTEND Internal Medicine
DX: I95.1 Orthostatic hypotension (principal); H81.11 Benign paroxysmal vertigo, right ear; I25.10 Atherosclerotic heart disease of native coronary artery without angina pectoris; I11.0 Hypertensive heart disease with heart failure; I50.9 Heart failure, unspecified; E78.5 Hyperlipidemia, unspecified; F41.9 Anxiety disorder, unspecified; I25.2 Old myocardial infarction; Z95.5 Presence of coronary angioplasty implant and graft; Z87.898 Personal history of other specified conditions; Z79.899 Other long term (current) drug therapy; Z79.01 Long term (current) use of anticoagulants; Z79.82 Long term (current) use of aspirin; Z90.89 Acquired absence of other organs; Z98.890 Other specified postprocedural states; Z87.891 Personal history of nicotine dependence
CPT/HCPCS: 36415; 70450; 71045; 73502; 80048; 80053; 84484; 85025; 85610; 93005; 96361; 96372; 96374; 97110; 97161; 99285; A9270; G0378; J1650; J2270; J7040; 99284

== ENCOUNTER 2017-05-03 20:40 | Observation (INO) | payer MEDICARE ==
[2017-05-03] MEDS ORDERED: Sodium Chloride 0.9% 1,000 ML IV ONE (20:42)
[2017-05-03] MEDS ORDERED: Aspirin 81 MG Tab.Chew PO ONE (20:42)
[2017-05-03] MEDS: Nitroglycerin 0.4 MG Tab.SL SL PRN ×2 (20:53→20:59)
--- NOTE | 2017-05-03 21:08 | EDM.PDOC ---
ED HPI GENERAL MEDICAL PROBLEM - General Chief Complaint: Upper Extremity Injury/Pain Stated Complaint: UNK Time Seen by Provider: 05/03/17 20:59 Source of Information: Reports: Patient History Limitations: Reports: No Limitations - History of Present Illness INITIAL COMMENTS - FREE TEXT/NARRATIVE: HISTORY AND PHYSICAL: History of present illness: Patient is a 71-year-old male who presents to the emergency room today with complaints of right shoulder pain. He states he was laying on the couch when he initially started having left shoulder pain which resolved and moved to the right shoulder. Patient points to the right posterior deltoid, stating it radiates into his back. While resting on the couch, he states his son told him he did not look well and proceeded to call for an ambulance. Patient states that besides the shoulder pain he stated feel diaphoretic. Does have a history of hypertension, elevated cholesterol, [place] with coronary artery stents 3. Patient denies any chest pain, shortness of breath, abdominal pain, nausea, vomiting or diarrhea. Denies any recent injury or trauma. Denies any arthritic conditions previous injury to the affected extremity. He was recently admitted to the hospital for syncope on 04/18/2017. Former smoker, quit in 2009. Review of systems: As per history of present illness and below otherwise all systems reviewed and negative. Past medical history: As per history of present illness and as reviewed below otherwise noncontributory. Surgical history: As per history of present illness and as reviewed below otherwise noncontributory. Social history: No reported history of drug or alcohol abuse. Family history: As per history of present illness and as reviewed below otherwise noncontributory. Physical exam: Gen.: Well-developed and well-nourished 71-year-old male. Alert and oriented. Nontoxic appearing and in no acute distress. HEENT: Atraumatic, normocephalic, pupils reactive, negative for conjunctival pallor or scleral icterus, mucous membranes moist, throat clear, neck supple, nontender, trachea midline. Lungs: Clear to auscultation, breath sounds equal bilaterally, chest nontender. Heart: S1S2, regular, negative for clicks, rubs, or JVD. Abdomen: Soft, nondistended, nontender. Negative for masses or hepatosplenomegaly. Negative for costovertebral tenderness. Pelvis: Stable nontender. Genitourinary: Deferred. Rectal: Deferred. Extremities: Atraumatic, moves all extremities herself. Does have pain with range of motion and when palpating the right deltoid/tricep area. negative for cords or calf pain. Strong radial pulses bilaterally. Capillary refill less than 3 seconds bilaterally. Neurovascular unremarkable. Skin: Intact, warm, slightly diaphoretic. No rashes or lesions noted. Neuro: Awake, alert, oriented. Cranial nerves II through XII unremarkable. Cerebellum unremarkable. Motor and sensory unremarkable throughout. Exam nonfocal. Patient does have a history of heart disease with stent placement, will do a cardiac workup at this time. He did receive 3 tablets of nitroglycerin did not alleviate any of his discomfort. Pain is still a 10/10. Patient asked if he will need to stay overnight in the hospital, we did talk that this may be a possibility due to his multiple risk factors. He does become tearful but states "I'll do what I have to do". CBC, CMP, troponin, chest x-ray are negative. No changes noted on his EKG, this was reviewed by myself and Dr. Ahmadi. Morphine was given for the shoulder pain. Dr. Bucio was consulted on this case, he is agreeable to admit this patient for observation to rule out UT. Diagnostics: CBC, CMP, troponin, chest x-ray, EKG Therapeutics: IV fluid, aspirin, nitroglycerin Impression: Right shoulder pain Atypical chest pain, r/o UT Plan: Observation admission with telemetry Definitive disposition and diagnosis as appropriate pending reevaluation and review of above. Onset: Today Duration: Hour(s): Location: Reports: Upper Extremity, Right Associated Symptoms: Reports: Diaphoresis. Denies: Confusion, Chest Pain, Cough , cough w sputum, Fever/Chills, Headaches, Loss of Appetite, Malaise, Nausea/ Vomiting, Rash, Seizure, Shortness of Breath, Syncope, Weakness right shoulder Pain Score (Numeric/FACES): 10 - Related Data Allergies Allergy/AdvReac Type Severity Reaction Status Date / Time No Known Allergies Allergy Verified 05/03/17 20:48 Home Meds: Home Meds Carvedilol 3.125 mg PO BID 09/22/16 [History] Isosorbide Mononitrate [Imdur] 30 mg PO DAILY 09/22/16 [History] Pantoprazole [ProTONIX] 40 mg PO ACBREAKFAST 09/22/16 [History] Pravastatin [Pravachol] 40 mg PO DAILY 09/22/16 [History] Nitroglycerin [Nitrostat] 0.4 mg SL Q5M PRN 11/22/16 [History] Acetaminophen [Tylenol Extra Strength] 1,000 mg PO TID PRN 04/19/17 [History] Clopidogrel [Plavix] 75 mg PO DAILY 04/19/17 [History] Nabumetone 500 mg PO BIDMEALS PRN 04/19/17 [History] PARoxetine [Paxil] 10 mg PO DAILY 04/19/17 [History] traMADol HCl [Tramadol HCl] 50 mg PO TID PRN 04/19/17 [History] Aspirin [Halfprin] 81 mg PO DAILY #0 tab.ec 04/20/17 [Rx] Furosemide 20 mg PO DAILY #0 04/20/17 [Rx] Past Medical History - Past Health History Medical/Surgical History: Denies Medical/Surgical History HEENT History: Reports: None Cardiovascular History: Reports: High Cholesterol, Hypertension, [place], Stents Respiratory History: Reports: None Gastrointestinal History: Reports: None Genitourinary History: Reports: None Musculoskeletal History: Reports: None Neurological History: Reports: None Psychiatric History: Reports: None Endocrine/Metabolic History: Reports: None Hematologic History: Reports: None Immunologic History: Reports: None Oncologic (Cancer) History: Reports: None Dermatologic History: Reports: None - Infectious Disease History Infectious Disease History: Reports: None - Past Surgical History Head Surgeries/Procedures: Reports: None HEENT Surgical History: Reports: Tonsillectomy, Other (See Below) Other HEENT Surgeries/Procedures: Dental extraction. Throat Surgery Cardiovascular Surgical History: Reports: Coronary Artery Stent Respiratory Surgical History: Reports: None Male Surgical History: Reports: None Endocrine Surgical History: Reports: None Musculoskeletal Surgical History: Reports: None Oncologic Surgical History: Reports: None Dermatological Surgical History: Reports: None Social & Family History - Family History Family Medical History: Noncontributory Cardiac: Reports: [place] Respiratory: Reports: None Endocrine/Metabolic: Reports: Diabetes, Type I Hematologic: Reports: None Oncologic: Reports: Other (See Below) Other Oncologic Family History: Father side has cancer but patient doesn't know exactly what kind of CA - Tobacco Use Smoking Status *Q: Former Smoker Years of Tobacco use: 1 Used Tobacco, but Quit: No Month Tobacco Last Used: 2009 Second Hand Smoke Exposure: Yes - Caffeine Use Caffeine Use: Reports: Soda - Alcohol Use Days Per Week of Alcohol Use: 1 Number of Drinks Per Day: 2 Total Drinks Per Week: 2 - Recreational Drug Use Recreational Drug Use: No - Living Situation & Occupation Living situation: Reports: Occupation: Retired Review of Systems - Review of Systems Review Of Systems: ROS reveals no pertinent complaints other than HPI. ED EXAM, GENERAL - Physical Exam Exam: See Below (See dictation) EKG INTERPRETATION EKG Date: 05/03/17 EKG Interpretation Comments: Reviewed by myself and Dr Ahmadi Course - Vital Signs Last Recorded V/S: Last Vital Signs Temp 97.9 F 05/03/17 20:40 Pulse 86 05/03/17 21:45 Resp 18 05/03/17 21:45 BP 130/72 05/03/17 21:45 Pulse Ox 98 05/03/17 21:45 - Orders/Labs/Meds Orders: Active Orders 24 hr Category Date Time Status Admission Status [Patient Status] [ADT] Stat ADT 05/03/17 21:53 Ordered EKG Documentation Completion [RC] STAT Care 05/03/17 20:42 Active Chest 1V Frontal [CR] Stat Exams 05/03/17 20:42 Taken Nitroglycerin [Nitrostat] Med 05/03/17 20:42 Active 0.4 mg SL Q5M PRN Sodium Chloride 0.9% [Normal Saline] 1,000 ml Med 05/03/17 20:42 Active IV STAT Medication Orders Sodium Chloride (Normal Saline) 1,000 mls @ 150 mls/hr IV STAT ONE Stop: 05/04/17 03:21 Last Admin: 05/03/17 20:52 Dose: 150 mls/hr Nitroglycerin (Nitrostat) 0.4 mg SL Q5M PRN PRN Reason: Chest Pain Last Admin: 05/03/17 20:59 Dose: 0.4 mg Admin: 05/03/17 20:53 Dose: 0.4 mg Labs: Laboratory Tests 05/03/17 05/03/17 Range/Units 20:45 20:45 WBC 5.30 (4.0-11.0) K/uL RBC 4.32 L (4.50-5.90) M/uL Hgb 12.0 L (13.0-17.0) g/dL Hct 36.9 L (38.0-50.0) % MCV 85.4 (80.0-98.0) fL MCH 27.8 (27.0-32.0) pg MCHC 32.5 (31.0-37.0) g/dL RDW Std Deviation 48.3 (28.0-62.0) fl RDW Coeff of Ethan 15 (11.0-15.0) % Plt Count 266 (150-400) K/uL MPV 9.60 (7.40-12.00) fL Neut % (Auto) 50.9 (48.0-80.0) % Lymph % (Auto) 35.1 (16.0-40.0) % [place] % (Auto) 10.0 (0.0-15.0) % Eos % (Auto) 3.8 (0.0-7.0) % Baso % (Auto) 0.2 (0.0-1.5) % Neut # (Auto) 2.7 (1.4-5.7) K/uL Lymph # (Auto) 1.9 (0.6-2.4) K/uL [place] # (Auto) 0.5 (0.0-0.8) K/uL Eos # (Auto) 0.2 (0.0-0.7) K/uL Baso # (Auto) 0.0 (0.0-0.1) K/uL Nucleated RBC % 0.0 /100WBC Nucleated RBCs # 0 K/uL Sodium 142 (136-146) mmol/L Potassium 4.1 (3.5-5.1) mmol/L Chloride 110 (98-110) mmol/L Carbon Dioxide 21 (21-31) mmol/L BUN 22 (6.0-23.0) mg/dL Creatinine 0.8 (0.6-1.5) mg/dL Est Cr Clr Drug Dosing TNP Estimated GFR (MDRD) > 60.0 ml/min Glucose 110 (60-110) mg/dL Calcium 9.4 (8.8-10.8) mg/dL Total Bilirubin 0.2 (0.1-1.5) mg/dL AST 19 (5-40) IU/L ALT 13 (8-54) IU/L Alkaline Phosphatase 88 (40-150) Troponin I < 0.10 (0.0-0.29) NG/ML Total Protein 7.7 (6.0-8.0) g/dL Albumin 4.4 (3.4-4.8) g/dL Globulin 3.3 (2.0-3.5) g/dL Albumin/Globulin Ratio 1.3 (1.3-2.8) Meds: Medications Generic Name Dose Route Start Last Admin Trade Name Freq PRN Reason Stop Dose Admin Sodium Chloride 1,000 mls @ 150 mls/hr 05/03/17 20:42 05/03/17 20:52 Normal Saline IV 05/04/17 03:21 150 mls/hr STAT ONE Administration Nitroglycerin 0.4 mg 05/03/17 20:42 05/03/17 20:59 Nitrostat SL 0.4 mg Q5M PRN Administration Chest Pain Discontinued Medications Generic Name Dose Route Start Last Admin Trade Name Freq PRN Reason Stop Dose Admin Aspirin 324 mg 05/03/17 20:42 05/03/17 20:54 Aspirin PO 05/03/17 20:43 324 mg ONETIME ONE Administration Morphine Sulfate 2 mg 05/03/17 21:35 05/03/17 21:44 Morphine IVPUSH 05/03/17 21:36 2 mg ONETIME ONE Administration Departure - Departure Time of Disposition: 21:54 Disposition: Refer to Observation Clinical Impression: Chest pain, rule out acute myocardial infarction Shoulder pain, right Qualifiers: Chronicity: acute Qualified Code(s): M25.511 - Pain in right shoulder - Discharge Information Referrals: PCP,None [Primary Care Provider] - Forms: ED Department Discharge - My Orders Last 24 Hours: My Active Orders 05/03/17 20:42 EKG Documentation Completion [RC] STAT Chest 1V Frontal [CR] Stat Nitroglycerin [Nitrostat] 0.4 mg SL Q5M PRN Sodium Chloride 0.9% [Normal Saline] 1,000 ml IV STAT 05/03/17 21:53 Admission Status [Patient Status] [ADT] Stat - Assessment/Plan Last 24 Hours: My Active Orders 05/03/17 20:42 EKG Documentation Completion [RC] STAT Chest 1V Frontal [CR] Stat Nitroglycerin [Nitrostat] 0.4 mg SL Q5M PRN Sodium Chloride 0.9% [Normal Saline] 1,000 ml IV STAT 05/03/17 21:53 Admission Status [Patient Status] [ADT] Stat
[2017-05-03 21:28] LABS: CHLORIDE,CL 110 mmol/L (98-110); SODIUM,NA 142 mmol/L (136-146)
[2017-05-03] MEDS ORDERED: Morphine 2 MG/ML Syringe IVPUSH ONE (21:35)
--- NOTE | 2017-05-03 22:59 | PCM.HP ---
H&P History of Present Illness - General Date of Service: 05/03/17 Admit Problem/Dx: Admission Diagnosis/Problem Admission Diagnosis/Problem Chest pain, rule out acute myocardial infarction Source of Information: Patient History Limitations: Reports: No Limitations - History of Present Illness Initial Comments - Free Text/Narative: 71-year-old male who presented emergency department with chief complaint of right shoulder pain with past medical history of CAD, [place] with stents x3 PCI, congestive heart failure, hypertension, hyperlipidemia and alcohol abuse. Patient states that he was resting on his couch when he suddenly began having left shoulder pain. This resolved and moved to his right shoulder. Patient states the pain was 10 out of 10 sharp with radiation as mentioned above. He does report some associated diaphoresis but no jaw pain, shortness of breath , nausea, or vomiting. The pain continued and secondary to his son telling him that he didn't look well proceeded to call for an ambulance. He was brought by EMS to the emergency department. He denies any recent injury or trauma to his right shoulder. On exam he currently denies any chest pain, palpitations, recent syncopal episodes, or focal neurologic deficits. His pain is primarily located in his right shoulder near the acromioclavicular joint. Former smoker, quit in 2009. Patient was admitted recently 04/18/17 for syncope and orthostatic hypotension. In the emergency room initial CBC, CMP, troponin, chest x-ray are unremarkable. ECG shows no acute signs of ischemia. He did receive 3 tabs a nitroglycerin with no relief of his right-sided chest/shoulder pain. Patient is admitted to observation for atypical chest pain. right shoulder Pain Score (Numeric/FACES): 6 - Related Data Allergies/Adverse Reactions: Allergies Allergy/AdvReac Type Severity Reaction Status Date / Time No Known Allergies Allergy Verified 05/03/17 20:48 Home Medications: Home Meds Carvedilol 3.125 mg PO BID 09/22/16 [History] Isosorbide Mononitrate [Imdur] 30 mg PO DAILY 09/22/16 [History] Pantoprazole [ProTONIX] 40 mg PO ACBREAKFAST 09/22/16 [History] Pravastatin [Pravachol] 40 mg PO DAILY 09/22/16 [History] Nitroglycerin [Nitrostat] 0.4 mg SL Q5M PRN 11/22/16 [History] Acetaminophen [Tylenol Extra Strength] 1,000 mg PO TID PRN 04/19/17 [History] Clopidogrel [Plavix] 75 mg PO DAILY 04/19/17 [History] Nabumetone 500 mg PO BIDMEALS PRN 04/19/17 [History] PARoxetine [Paxil] 10 mg PO DAILY 04/19/17 [History] traMADol HCl [Tramadol HCl] 50 mg PO TID PRN 04/19/17 [History] Aspirin [Halfprin] 81 mg PO DAILY #0 tab.ec 04/20/17 [Rx] Furosemide 20 mg PO DAILY #0 04/20/17 [Rx] Past Medical History - Past Health History Medical/Surgical History: Denies Medical/Surgical History HEENT History: Reports: None Cardiovascular History: Reports: High Cholesterol, Hypertension, [place], Stents Respiratory History: Reports: None Gastrointestinal History: Reports: None Genitourinary History: Reports: None Musculoskeletal History: Reports: None Neurological History: Reports: None Psychiatric History: Reports: None Endocrine/Metabolic History: Reports: None Hematologic History: Reports: None Immunologic History: Reports: None Oncologic (Cancer) History: Reports: None Dermatologic History: Reports: None - Infectious Disease History Infectious Disease History: Reports: None - Past Surgical History Head Surgeries/Procedures: Reports: None HEENT Surgical History: Reports: Tonsillectomy, Other (See Below) Other HEENT Surgeries/Procedures: Dental extraction. Throat Surgery Cardiovascular Surgical History: Reports: Coronary Artery Stent Respiratory Surgical History: Reports: None Male Surgical History: Reports: None Endocrine Surgical History: Reports: None Musculoskeletal Surgical History: Reports: None Oncologic Surgical History: Reports: None Dermatological Surgical History: Reports: None Social & Family History - Family History Family Medical History: Noncontributory Cardiac: Reports: [place] Respiratory: Reports: None Endocrine/Metabolic: Reports: Diabetes, Type I Hematologic: Reports: None Oncologic: Reports: Other (See Below) Other Oncologic Family History: Father side has cancer but patient doesn't know exactly what kind of CA - Tobacco Use Smoking Status *Q: Former Smoker Years of Tobacco use: 1 Used Tobacco, but Quit: No Month Tobacco Last Used: 2009 Second Hand Smoke Exposure: Yes - Caffeine Use Caffeine Use: Reports: Soda - Alcohol Use Days Per Week of Alcohol Use: 1 Number of Drinks Per Day: 2 Total Drinks Per Week: 2 - Recreational Drug Use Recreational Drug Use: No - Living Situation & Occupation Living situation: Reports: Occupation: Retired H&P Review of Systems - Review of Systems: Review Of Systems: See Below General: Denies: Fever, Chills, Malaise, Weakness, Diaphoresis HEENT: Denies: Headaches, Sore Throat Pulmonary: Denies: Shortness of Breath, Wheezing, Pleuritic Chest Pain Cardiovascular: Denies: Chest Pain, Palpitations, Lightheadedness, Syncope Gastrointestinal: Denies: Abdominal Pain, Diarrhea, Nausea, Vomiting Genitourinary: Denies: Dysuria, Hematuria Musculoskeletal: Reports: Shoulder Pain. Denies: Neck Pain, Leg Pain Skin: Denies: Cyanosis Psychiatric: Denies: Confusion Neurological: Denies: Confusion, Dizziness, Headache Hematologic/Lymphatic: Denies: Anemia Exam - Exam Exam: See Below - Vital Signs Vital Signs: Last Vital Signs Temp 98.7 F 05/03/17 22:35 Pulse 78 05/03/17 22:35 Resp 18 05/03/17 22:35 BP 158/89 H 05/03/17 22:35 Pulse Ox 96 05/03/17 22:35 Weight: 64.047 kg - Exam Quality Assessment: DVT Prophylaxis General: Alert, Oriented, Cooperative HEENT: Conjunctiva Clear, EACs Clear, EOMI, Hearing Intact, Mucosa Moist & [place] , Nares Patent, Normal Nasal Septum, Posterior Pharynx Clear, PERRLA Neck: Supple, Trachea Midline, 2 Lungs: Clear to Auscultation, Normal Respiratory Effort Cardiovascular: Regular Rate, Regular Rhythm, Normal S1, Normal S2 GI/Abdominal Exam: Normal Bowel Sounds, Soft, Non-Tender, No Organomegaly, No Distention Back Exam: Normal Inspection Extremities: Normal Inspection, Non-Tender, No Pedal Edema, Normal Capillary Refill Peripheral Pulses: 2+: Radial (L), Radial (R), Posterior Tibial (L), Posterior Tibial (R), Dorsalis Pedis (L), Dorsalis Pedis (R) Skin: Warm, Dry, Intact Neurological: Cranial Nerves Intact Neuro Extensive - Mental Status: Alert, Oriented x3, Normal Mood/Affect, Normal Cognition Neuro Extensive - Motor, Sensory, Reflexes: CN II-XII Intact Psychiatric: Alert, Normal Affect, Normal Mood - Patient Data Result Diagrams: 05/03/17 20:45 01/16/18 20:45 *Q Meaningful Use (ADM) - VTE *Q VTE Criteria *Q: - Stroke *Q Stroke Criteria *Q: - AMI *Q AMI Criteria *Q: - Problem List (1) Atypical chest pain SNOMED Code(s): 392827784 ICD Code: R07.89 - OTHER CHEST PAIN Status: Acute Priority: High Current Visit: No (2) Coronary artery disease SNOMED Code(s): 70872784 ICD Code: I25.10 - ATHSCL HEART DISEASE OF [place] CORONARY ARTERY W/O ANG PCTRS Status: Chronic Priority: Medium Current Visit: Yes Qualifiers: Associated angina: with unspecified angina (3) HTN (hypertension) SNOMED Code(s): 29127208 ICD Code: I10 - ESSENTIAL (PRIMARY) HYPERTENSION Status: Chronic Priority : Medium Current Visit: Yes Qualifiers: Hypertension type: essential hypertension Qualified Code(s): I10 - Essential (primary) hypertension (4) History of alcohol use SNOMED Code(s): 094791184 ICD Code: Z87.898 - PERSONAL HISTORY OF OTHER SPECIFIED CONDITIONS Status: Chronic Priority: Low Current Visit: Yes (5) Hyperlipidemia SNOMED Code(s): 93637924 ICD Code: E78.5 - HYPERLIPIDEMIA, UNSPECIFIED Status: Chronic Priority: Medium Current Visit: Yes Qualifiers: Hyperlipidemia type: unspecified Qualified Code(s): E78.5 - Hyperlipidemia , unspecified (6) Myocardial infarction SNOMED Code(s): 10172646 ICD Code: I21.9 - ACUTE MYOCARDIAL INFARCTION, UNSPECIFIED Status: Chronic Priority: High Current Visit: Yes Qualifiers: Involved coronary artery: unspecified coronary artery Problem List Initiated/Reviewed/Updated: Yes Orders Last 24hrs: Medication Orders Sodium Chloride (Normal Saline) 1,000 mls @ 150 mls/hr IV STAT ONE Stop: 05/04/17 03:21 Last Admin: 05/03/17 20:52 Dose: 150 mls/hr Nitroglycerin (Nitrostat) 0.4 mg SL Q5M PRN PRN Reason: Chest Pain Last Admin: 05/03/17 20:59 Dose: 0.4 mg Admin: 05/03/17 20:53 Dose: 0.4 mg Assessment/Plan Comment:: T11-year-old male admitted 05/03/17 for atypical chest pain with past medical history of CAD, [place] with stents 3, congestive heart failure, hypertension, hyperlipidemia, and alcohol abuse. Atypical chest pain: ECG and initial troponin show no signs of acute ischemia. Will trend troponins 3. Place on telemetry. On examination pain right now is primarily located in the acromioclavicular joint of the right shoulder. He has no substernal chest pain at this time. We will get radiographs of the right shoulder as this appears to be more of an impingement type syndrome however his history is somewhat confusing for this. No recent trauma or overuse. He does have a strong cardiac history with [place] in the past. Hypertension: Stable will restart home meds Hyperlipidemia: Stable low restart home meds Congestive heart failure: No signs of JVD on exam restart home meds VTE proph: SCD, heparin Dispo: Tomorrow pending
[2017-05-03] MEDS ORDERED: Ondansetron 4 MG/2 ML SDV IVPUSH PRN (23:21)
[2017-05-03] MEDS ORDERED: Temazepam 15 MG Cap PO PRN (23:21)
[2017-05-03] MEDS ORDERED: Acetaminophen 325 MG Tab PO PRN (23:21)
[2017-05-03] MEDS ORDERED: Ondansetron 4 MG Tab.DIS PO PRN (23:21)
[2017-05-03] MEDS ORDERED: NABUMETONE 500 MG PO PRN (23:28)
[2017-05-04] MEDS: Morphine 10 MG/ML Syringe IVPUSH PRN ×2 (00:03→05:55)
[2017-05-04] MEDS: Heparin Sodium 5,000 Units/ML Vial SUBCUT SCH ×2 (00:05→06:29)
[2017-05-04 05:57] LABS: CHLORIDE,CL 113 mmol/L (98-110); SODIUM,NA 143 mmol/L (136-146)
[2017-05-04] MEDS ORDERED: Pantoprazole 40 MG Tab.CR PO SCH (07:30)
[2017-05-04 08:14] VITALS: BP 124/73
[2017-05-04] MEDS ORDERED: Carvedilol 3.125 MG Tab PO SCH (09:00)
[2017-05-04] MEDS ORDERED: Isosorbide Mononitrate 30 MG Tab.ER PO SCH (09:00)
[2017-05-04] MEDS ORDERED: PARoxetine 20 MG Tab PO SCH (09:00)
[2017-05-04] MEDS ORDERED: Aspirin 81 MG Tab.EC PO SCH (09:00)
[2017-05-04] MEDS ORDERED: Furosemide 20 MG Tab PO SCH (09:00)
[2017-05-04] MEDS ORDERED: Potassium Chloride 20 MEQ Tab.ER PO SCH (09:00)
[2017-05-04] MEDS ORDERED: Pravastatin 40 MG Tab PO SCH (09:00)
[2017-05-04] MEDS ORDERED: Clopidogrel 75 MG Tab PO SCH (09:00)
--- NOTE | 2017-05-04 11:09 | CR ---
EXAMINATION: 2 views of the right humerus and single view of the left shoulder HISTORY: Pain COMPARISON: None FINDINGS: There is no acute osseous abnormality, dislocation, or fracture. Bone mineralization and gilma int spaces are grossly preserved. No elbow joint effusion. IMPRESSION: No acute findings identified.
--- NOTE | 2017-05-04 11:12 | PCM.DCSUM1 ---
Discharge Summary - Hospital Course Free Text/Narrative:: Admission date: May 03, 2017 Discharge date May 04, 2017 Admission diagnosis: #1. Atypical chest pain #2. ACS rule out #3. Right Shoulder pain #4. History of hypertension, CHF, hyperlipidemia Discharge diagnoses: #1. Atypical chest pain #2. ACS ruled out #3. Right Shoulder pain #4. History of hypertension, CHF, hyperlipidemia Hospital course: This is a 71-year-old male that presented to the emergency department on May 03 complaining of right-sided shoulder pain unrelieved by nitroglycerin. This patient is admitted for observation given his extensive cardiovascular history. Acute coronary syndrome was ruled out with negative troponins 3. EKG was unremarkable in the emergency department. The following morning when I evaluated the patient, he was noted to be in a sling nursing the right shoulder and was complaining of pain in the right shoulder. On arrival, the patient described his shoulder pain as localized, nonradiating and abrupt in onset.An x-ray of the right shoulder and humerus was obtained which was unremarkable to my knowledge showing arthritic changes but no acute findings. After ACS was ruled out, the patient was ultimately discharged with a follow-up with orthopedics, cardiology and his primary care provider. A prescription for oxycodone-acetaminophen 5-325 every every 6 hours when necessary was given. Patient agreed to the plan. He was advised to return if he expresses chest pain , shortness of breath, palpitations. - Discharge Data Discharge Date: 05/04/17 Discharge Disposition: Home, Self-Care 01 Condition: Fair - Patient Summary/Data Consults: Consultations 05/03/17 23:21 PT Evaluation and Treatment [CONS] Routine - Discharge Plan Prescriptions/Med Rec: oxyCODONE HCl/Acetaminophen [oxyCODONE-Acetaminophen 5-325] 1 tab PO Q6H PRN 7 Days #28 tablet PRN Reason: Pain Home Medications: Home Meds Carvedilol 3.125 mg PO BID 09/22/16 [History] Isosorbide Mononitrate [Imdur] 30 mg PO DAILY 09/22/16 [History] Pantoprazole [ProTONIX] 40 mg PO ACBREAKFAST 09/22/16 [History] Pravastatin [Pravachol] 40 mg PO DAILY 09/22/16 [History] Nitroglycerin [Nitrostat] 0.4 mg SL Q5M PRN 11/22/16 [History] Clopidogrel [Plavix] 75 mg PO DAILY 04/19/17 [History] Nabumetone 500 mg PO BIDMEALS PRN 04/19/17 [History] PARoxetine [Paxil] 10 mg PO DAILY 04/19/17 [History] traMADol HCl [Tramadol HCl] 50 mg PO TID PRN 04/19/17 [History] Aspirin [Halfprin] 81 mg PO DAILY #0 tab.ec 04/20/17 [Rx] Furosemide 20 mg PO DAILY #0 04/20/17 [Rx] oxyCODONE HCl/Acetaminophen [oxyCODONE-Acetaminophen 5-325] 1 tab PO Q6H PRN 7 Days #28 tablet 05/04/17 [Rx] Patient Handouts: Nonspecific Chest Pain, [id number] Referrals: Bo Lopez MD [Physician] - 05/12/17 2:30 pm Eliane Jang NP [Nurse Practitioner] - 05/11/17 1:30 pm Sarah Mcintosh PA [Physician Parts Assembler] - 05/13/17 1:30 pm - Patient Data Vitals - Most Recent: Last Vital Signs Temp 36.7 C 05/04/17 08:00 Pulse 66 05/04/17 08:12 Resp 16 05/04/17 08:00 BP 124/73 05/04/17 08:13 Pulse Ox 97 05/04/17 08:00 Weight - Most Recent: 64.229 kg I&O - Last 24 hours: Intake & Output 05/03/17 05/04/17 05/04/17 22:59 06:59 14:59 Intake Total 850 250 Output Total 825 325 Balance 25 -75 Lab Results - Last 24 hrs: Laboratory Results - last 24 hr 05/04/17 05/04/17 05/04/17 Range/Units 02:38 04:43 04:43 WBC 4.25 (4.0-11.0) K/uL RBC 3.78 L (4.50-5.90) M/uL Hgb 10.5 L (13.0-17.0) g/dL Hct 32.7 L (38.0-50.0) % MCV 86.5 (80.0-98.0) fL MCH 27.8 (27.0-32.0) pg MCHC 32.1 (31.0-37.0) g/dL RDW Std Deviation 49.6 (28.0-62.0) fl RDW Coeff of Ethan 16 H (11.0-15.0) % Plt Count 191 (150-400) K/uL MPV 9.70 (7.40-12.00) fL Neut % (Auto) 46.4 L (48.0-80.0) % Lymph % (Auto) 39.1 (16.0-40.0) % [place] % (Auto) 10.1 (0.0-15.0) % Eos % (Auto) 4.2 (0.0-7.0) % Baso % (Auto) 0.2 (0.0-1.5) % Neut # (Auto) 2.0 (1.4-5.7) K/uL Lymph # (Auto) 1.7 (0.6-2.4) K/uL [place] # (Auto) 0.4 (0.0-0.8) K/uL Eos # (Auto) 0.2 (0.0-0.7) K/uL Baso # (Auto) 0.0 (0.0-0.1) K/uL Nucleated RBC % 0.0 /100WBC Nucleated RBCs # 0 K/uL Sodium 143 (136-146) mmol/L Potassium 3.3 L (3.5-5.1) mmol/L Chloride 113 H (98-110) mmol/L Carbon Dioxide 22 (21-31) mmol/L BUN 17 (6.0-23.0) mg/dL Creatinine 0.7 (0.6-1.5) mg/dL Est Cr Clr Drug Dosing 90.23 mL/min Estimated GFR (MDRD) > 60.0 ml/min Glucose 110 (60-110) mg/dL Calcium 8.3 L (8.8-10.8) mg/dL Troponin I < 0.10 (0.0-0.29) NG/ML 05/04/17 Range/Units 08:50 WBC (4.0-11.0) K/uL RBC (4.50-5.90) M/uL Hgb (13.0-17.0) g/dL Hct (38.0-50.0) % MCV (80.0-98.0) fL MCH (27.0-32.0) pg MCHC (31.0-37.0) g/dL RDW Std Deviation (28.0-62.0) fl RDW Coeff of Ethan (11.0-15.0) % Plt Count (150-400) K/uL MPV (7.40-12.00) fL Neut % (Auto) (48.0-80.0) % Lymph % (Auto) (16.0-40.0) % [place] % (Auto) (0.0-15.0) % Eos % (Auto) (0.0-7.0) % Baso % (Auto) (0.0-1.5) % Neut # (Auto) (1.4-5.7) K/uL Lymph # (Auto) (0.6-2.4) K/uL [place] # (Auto) (0.0-0.8) K/uL Eos # (Auto) (0.0-0.7) K/uL Baso # (Auto) (0.0-0.1) K/uL Nucleated RBC % /100WBC Nucleated RBCs # K/uL Sodium (136-146) mmol/L Potassium (3.5-5.1) mmol/L Chloride (98-110) mmol/L Carbon Dioxide (21-31) mmol/L BUN (6.0-23.0) mg/dL Creatinine (0.6-1.5) mg/dL Est Cr Clr Drug Dosing mL/min Estimated GFR (MDRD) ml/min Glucose (60-110) mg/dL Calcium (8.8-10.8) mg/dL Troponin I < 0.10 (0.0-0.29) NG/ML Med Orders - Current: Current Medications Discontinued Medications Acetaminophen (Tylenol) 650 mg PO Q4H PRN PRN Reason: Pain (Mild 1-3)/fever Aspirin (Aspirin) 324 mg PO ONETIME ONE Stop: 05/03/17 20:43 Last Admin: 05/03/17 20:54 Dose: 324 mg Aspirin (Halfprin) 81 mg PO DAILY ERICK Last Admin: 05/04/17 08:11 Dose: 81 mg Carvedilol (Coreg) 3.125 mg PO BID [facility] Last Admin: 05/04/17 08:12 Dose: 3.125 mg Clopidogrel Bisulfate (Plavix) 75 mg PO DAILY [facility] Last Admin: 05/04/17 08:12 Dose: 75 mg Furosemide (Lasix) 20 mg PO DAILY [facility] Last Admin: 05/04/17 08:13 Dose: Not Given Heparin Sodium (Porcine) (Heparin Sodium) 5,000 units SUBCUT Q8H [facility] Last Admin: 05/04/17 06:29 Dose: 5,000 units Sodium Chloride (Normal Saline) 1,000 mls @ 150 mls/hr IV STAT ONE Stop: 05/04/17 03:21 Last Admin: 05/03/17 20:52 Dose: 150 mls/hr Isosorbide Mononitrate (Imdur) 30 mg PO DAILY [facility] Last Admin: 05/04/17 08:13 Dose: 30 mg Morphine Sulfate (Morphine) 2 mg IVPUSH ONETIME ONE Stop: 05/03/17 21:36 Last Admin: 05/03/17 21:44 Dose: 2 mg Morphine Sulfate (Morphine) 2 mg IVPUSH Q2H PRN PRN Reason: Pain (severe 7-10) Stop: 05/04/17 23:23 Last Admin: 05/04/17 05:55 Dose: 2 mg Nitroglycerin (Nitrostat) 0.4 mg SL Q5M PRN PRN Reason: Chest Pain Last Admin: 05/03/17 20:59 Dose: 0.4 mg Non-Formulary Medication (Nabumetone [Nabumetone]) 500 mg PO BIDMEALS PRN PRN Reason: Pain Ondansetron HCl (Zofran Odt) 4 mg PO Q4H PRN PRN Reason: nausea, able to take PO Ondansetron HCl (Zofran) 4 mg IVPUSH Q4H PRN PRN Reason: Nausea Pantoprazole Sodium (Protonix) 40 mg PO ACBREAKFAST [facility] Last Admin: 05/04/17 06:29 Dose: 40 mg Paroxetine HCl (Paxil) 10 mg PO DAILY [facility] Last Admin: 05/04/17 08:11 Dose: 10 mg Potassium Chloride (Klor-Con M20) 40 meq PO DAILY [facility] Last Admin: 05/04/17 08:11 Dose: 40 meq Pravastatin Sodium (Pravachol) 40 mg PO DAILY [facility] Last Admin: 05/04/17 08:12 Dose: 40 mg Temazepam (Restoril) 15 mg PO BEDTIME PRN PRN Reason: Sleep Last Admin: 05/04/17 00:08 Dose: 15 mg *Q Meaningful Use (DIS) - VTE *Q VTE Criteria *Q: - Stroke *Q Stroke Criteria *Q: - AMI *Q AMI Criteria *Q:
--- NOTE | 2017-05-04 13:25 | CR ---
EXAM DATE: 05/03/17 PATIENT'S AGE: 71 Patient: BERNARD BORREGO Facility: [place], [place] Site . Site : 1945 Study: XRay Chest [id number]/16/2018 9:02:13 PM Ordering Physician: Doctor Douglas Final Report: INDICATION: Chest and right shoulder pain COMPARISON: none TECHNIQUE: Portable erect chest performed at 8:54 p.m. FINDINGS: The lungs are clear. There is no evidence of pneumothorax. The shoulders are anatomically aligned. The heart, mediastinum and pulmonary vessels are of normal size. There is no evidence of pleural fluid. IMPRESSION: Negative chest. Dictated by Cesar Franco MD @ May 03 2017 9:08PM (Electronic Signature) Report Signed by Proxy. ETHAN
== END 2017-05-04 10:30 | disposition home or self-care (01) ==
LOC: MW.ED 20:40 → MW.MS 21:53
PROVIDERS: ADMIT Family Medicine; ATTEND Family Medicine
DX: R07.89 Other chest pain (principal); M25.511 Pain in right shoulder; I11.0 Hypertensive heart disease with heart failure; I50.9 Heart failure, unspecified; E78.5 Hyperlipidemia, unspecified; Z79.899 Other long term (current) drug therapy; Z79.02 Long term (current) use of antithrombotics/antiplatelets; Z79.82 Long term (current) use of aspirin; Z95.5 Presence of coronary angioplasty implant and graft; Z87.891 Personal history of nicotine dependence; Z90.89 Acquired absence of other organs
CPT/HCPCS: 36415; 71045; 73020; 73060; 80048; 80053; 84484; 85025; 93005; 96361; 96374; 99285; A4566; A9270; J1644; J2270; J7040; 96372; 96376; G0378

== ENCOUNTER 2017-07-26 15:12 | Observation (INO) | payer MEDICARE ==
--- NOTE | 2017-07-26 15:44 | EDM.PDOC ---
ED HPI GENERAL MEDICAL PROBLEM - General Chief Complaint: Chest Pain Stated Complaint: CHEST PAIN Time Seen by Provider: 07/26/17 15:21 Source of Information: Reports: Patient, RN (clinic) History Limitations: Reports: No Limitations - History of Present Illness INITIAL COMMENTS - FREE TEXT/NARRATIVE: Presents to the ER from adjoining clinic with a complaint of chest pain and orthostatic hypotension. The clinic RN states the patient had an appointment for diarrhea which has been black. When he got the clinic however he almost fainted when he stood up and became dizzy and lightheaded. Upon further questioning the patient reported some chest pain since early this morning. Is a history of coronary artery disease with stenting and sees Dr. Joseph in cardiology. He has been seen multiple times in the emergency room for chest pain , dizziness, alcohol abuse issues left chest Pain Score (Numeric/FACES): 10 - Related Data Allergies Allergy/AdvReac Type Severity Reaction Status Date / Time No Known Allergies Allergy Verified 07/26/17 15:31 Home Meds: Home Meds Carvedilol 3.125 mg PO BID 09/22/16 [History] Isosorbide Mononitrate [Imdur] 30 mg PO DAILY 09/22/16 [History] Pantoprazole [ProTONIX] 40 mg PO ACBREAKFAST 09/22/16 [History] Pravastatin [Pravachol] 40 mg PO DAILY 09/22/16 [History] Nitroglycerin [Nitrostat] 0.4 mg SL Q5M PRN 11/22/16 [History] Clopidogrel [Plavix] 75 mg PO DAILY 04/19/17 [History] Nabumetone 500 mg PO BIDMEALS PRN 04/19/17 [History] PARoxetine [Paxil] 10 mg PO DAILY 04/19/17 [History] traMADol HCl [Tramadol HCl] 50 mg PO TID PRN 04/19/17 [History] Aspirin [Halfprin] 81 mg PO DAILY #0 tab.ec 04/20/17 [Rx] Furosemide 20 mg PO DAILY #0 04/20/17 [Rx] oxyCODONE HCl/Acetaminophen [oxyCODONE-Acetaminophen 5-325] 1 tab PO Q6H PRN 7 Days #28 tablet 05/04/17 [Rx] Past Medical History - Past Health History Medical/Surgical History: Denies Medical/Surgical History HEENT History: Reports: None Cardiovascular History: Reports: High Cholesterol, Hypertension, [place], Stents Respiratory History: Reports: None Gastrointestinal History: Reports: None Genitourinary History: Reports: None Musculoskeletal History: Reports: None Neurological History: Reports: None Psychiatric History: Reports: None Endocrine/Metabolic History: Reports: None Hematologic History: Reports: None Immunologic History: Reports: None Oncologic (Cancer) History: Reports: None Dermatologic History: Reports: None - Infectious Disease History Infectious Disease History: Reports: None - Past Surgical History HEENT Surgical History: Reports: Tonsillectomy, Other (See Below) Other HEENT Surgeries/Procedures: Dental extraction. Throat Surgery Cardiovascular Surgical History: Reports: Coronary Artery Stent Social & Family History - Family History Family Medical History: Noncontributory Cardiac: Reports: [place] Respiratory: Reports: None Endocrine/Metabolic: Reports: Diabetes, Type I Hematologic: Reports: None Oncologic: Reports: Other (See Below) Other Oncologic Family History: Father side has cancer but patient doesn't know exactly what kind of CA - Tobacco Use Smoking Status *Q: Former Smoker Years of Tobacco use: 1 Used Tobacco, but Quit: No Month/Year Tobacco Last Used: 2009 Second Hand Smoke Exposure: Yes - Caffeine Use Caffeine Use: Reports: Soda Caffeine Use Comment: daily - Alcohol Use Days Per Week of Alcohol Use: 1 Number of Drinks Per Day: 2 Total Drinks Per Week: 2 - Recreational Drug Use Recreational Drug Use: No - Living Situation & Occupation Living situation: Reports: Occupation: Retired ED ROS GENERAL - Review of Systems Review Of Systems: ROS reveals no pertinent complaints other than HPI. ED EXAM, GENERAL - Physical Exam Exam: See Below Exam Limited By: No Limitations General Appearance: Alert, No Apparent Distress Ears: Normal External Exam Nose: Normal Inspection Throat/Mouth: Normal Inspection Head: Atraumatic, Normocephalic Neck: Normal Inspection Respiratory/Chest: No Respiratory Distress, Lungs Clear, Normal Breath Sounds, No Accessory Muscle Use Cardiovascular: Normal Peripheral Pulses, Regular Rate, Rhythm, No Murmur, Other (became faint and almost fell over upon standing) GI/Abdominal: Normal Bowel Sounds, Soft, Non-Tender, No Distention Rectal (Males) Exam: Normal Exam, Normal Rectal Tone, Heme - Stool (No stool in rectal vault. Miniscule amount was light brown.). No: Black Stool, Bloody Stool, Hemorrhoids, Mass Back Exam: Normal Inspection Extremities: Normal Inspection Neurological: Alert, Oriented, Normal Cognition Psychiatric: Normal Affect, Normal Mood Skin Exam: Warm, Dry, Intact, Normal Color, No Rash Lymphatic: No Adenopathy Course - Vital Signs Last Recorded V/S: Last Vital Signs Temp 36.3 C 07/26/17 15:20 Pulse 79 07/26/17 15:20 Resp 16 07/26/17 15:20 BP 118/79 07/26/17 15:20 Pulse Ox 96 07/26/17 15:20 - Orders/Labs/Meds Orders: Active Orders 24 hr Category Date Time Status EKG Documentation Completion [RC] STAT Care 07/26/17 15:29 Active CBC WITH AUTO DIFF [HEME] Stat Lab 07/26/17 15:28 Ordered CMP [COMPREHENSIVE METABOLIC PN,CMP] [CHEM] Stat Lab 07/26/17 15:28 Ordered TROPONIN I [CHEM] Stat Lab 07/26/17 15:28 Ordered - Re-Assessments/Exams Free Text/Narrative Re-Assessment/Exam: 07/26/17 18:22 Not orthostatic when up but did feel faint and a little wobbly. Free Text/Narrative Re-Assessment/Exam: 07/26/17 18:[address] Ahmadi. Case discussed with Dr. Carrasco hospitalist. Will admit for chest pain observation on telemetry. Departure - Departure Time of Disposition: 18:24 Disposition: Refer to Observation Condition: Fair Clinical Impression: Chest pain Qualifiers: Chest pain type: unspecified Qualified Code(s): R07.9 - Chest pain, unspecified - My Orders Last 24 Hours: My Active Orders 07/26/17 15:28 CBC WITH AUTO DIFF [HEME] Stat CMP [COMPREHENSIVE METABOLIC PN,CMP] [CHEM] Stat TROPONIN I [CHEM] Stat 07/26/17 15:29 EKG Documentation Completion [RC] STAT - Assessment/Plan Last 24 Hours: My Active Orders 07/26/17 15:28 CBC WITH AUTO DIFF [HEME] Stat CMP [COMPREHENSIVE METABOLIC PN,CMP] [CHEM] Stat TROPONIN I [CHEM] Stat 07/26/17 15:29 EKG Documentation Completion [RC] STAT
[2017-07-26] MEDS ORDERED: Pantoprazole 40 MG Vial IVPUSH ONE ×2 (15:53→16:05)
[2017-07-26] MEDS ORDERED: Sodium Chloride 0.9% 1,000 ML IV ONE (15:57)
[2017-07-26] MEDS ORDERED: Pantoprazole 80 MG in Sodium Chloride 0.9% 100 ML IV SCH (16:00)
[2017-07-26] MEDS ORDERED: Morphine 4 MG/ML Syringe IVPUSH ONE (16:02)
[2017-07-26] MEDS ORDERED: Ondansetron 4 MG/2 ML SDV IVPUSH ONE (16:04)
[2017-07-26 16:13] LABS: CHLORIDE,CL 105 mmol/L (98-107); SODIUM,NA 143 mmol/L (136-148)
[2017-07-26] MEDS: Sodium Chloride 0.9% 1,000 ML IV SCH (17:39)
--- NOTE | 2017-07-26 19:48 | PCM.HP ---
H&P History of Present Illness - General Admit Problem/Dx: Admission Diagnosis/Problem Admission Diagnosis/Problem Chest pain - History of Present Illness Initial Comments - Free Text/Narative: 72 yo male with pmh of CAD, alcohol abuse, and multiple admissions for chest pain, weakness and syncope. He was sent to the ED from clinic due to his weakness and inability to ambulate. Patient reports four day history of diarrhea and today he started having chest pain. He denies any shortness of breath, cough, or fevers, he denies any blood in stool, nausea, nor vomiting. ED provider's rectal exam had minimal stool that was nonbloody. left chest Pain Score (Numeric/FACES): 10 - Related Data Allergies/Adverse Reactions: Allergies Allergy/AdvReac Type Severity Reaction Status Date / Time No Known Allergies Allergy Verified 07/26/17 15:31 Home Medications: Home Meds Carvedilol 3.125 mg PO BID 09/22/16 [History] Isosorbide Mononitrate [Imdur] 30 mg PO DAILY 09/22/16 [History] Pantoprazole [ProTONIX] 40 mg PO ACBREAKFAST 09/22/16 [History] Pravastatin [Pravachol] 40 mg PO DAILY 09/22/16 [History] Nitroglycerin [Nitrostat] 0.4 mg SL Q5M PRN 11/22/16 [History] Clopidogrel [Plavix] 75 mg PO DAILY 04/19/17 [History] Nabumetone 500 mg PO BIDMEALS PRN 04/19/17 [History] PARoxetine [Paxil] 10 mg PO DAILY 04/19/17 [History] traMADol HCl [Tramadol HCl] 50 mg PO TID PRN 04/19/17 [History] Aspirin [Halfprin] 81 mg PO DAILY #0 tab.ec 04/20/17 [Rx] Furosemide 20 mg PO DAILY #0 04/20/17 [Rx] oxyCODONE HCl/Acetaminophen [oxyCODONE-Acetaminophen 5-325] 1 tab PO Q6H PRN 7 Days #28 tablet 05/04/17 [Rx] Past Medical History - Past Health History Medical/Surgical History: Denies Medical/Surgical History HEENT History: Reports: None Cardiovascular History: Reports: High Cholesterol, Hypertension, [place], Stents Respiratory History: Reports: None Gastrointestinal History: Reports: None Genitourinary History: Reports: None Musculoskeletal History: Reports: None Neurological History: Reports: None Psychiatric History: Reports: None Endocrine/Metabolic History: Reports: None Hematologic History: Reports: None Immunologic History: Reports: None Oncologic (Cancer) History: Reports: None Dermatologic History: Reports: None - Infectious Disease History Infectious Disease History: Reports: None - Past Surgical History Head Surgeries/Procedures: Reports: None HEENT Surgical History: Reports: Tonsillectomy, Other (See Below) Other HEENT Surgeries/Procedures: Dental extraction. Throat Surgery Cardiovascular Surgical History: Reports: Coronary Artery Stent Social & Family History - Family History Family Medical History: Noncontributory Cardiac: Reports: [place] Respiratory: Reports: None Endocrine/Metabolic: Reports: Diabetes, Type I Hematologic: Reports: None Oncologic: Reports: Other (See Below) Other Oncologic Family History: Father side has cancer but patient doesn't know exactly what kind of CA - Tobacco Use Smoking Status *Q: Former Smoker Years of Tobacco use: 1 Used Tobacco, but Quit: Yes Month/Year Tobacco Last Used: 2009 Tobacco Use Comment: Quit in 2009 Second Hand Smoke Exposure: No - Caffeine Use Caffeine Use: Reports: Coffee Caffeine Use Comment: daily - Alcohol Use Days Per Week of Alcohol Use: 1 Number of Drinks Per Day: 2 Total Drinks Per Week: 2 - Recreational Drug Use Recreational Drug Use: No - Living Situation & Occupation Living situation: Reports: Occupation: Retired H&P Review of Systems - Review of Systems: Review Of Systems: ROS reveals no pertinent complaints other than HPI. Exam - Vital Signs Vital Signs: Last Vital Signs Temp 36.4 C 07/26/17 18:35 Pulse 77 07/26/17 18:35 Resp 16 07/26/17 18:35 BP 124/71 07/26/17 18:35 Pulse Ox 97 07/26/17 18:35 Orthostatic Blood Pressure [ 109/66 Standing] Orthostatic Blood Pressure [ 102/69 Sitting] Orthostatic Blood Pressure [ 108/64 Supine] Weight: 63.367 kg - Exam General: Alert Lungs: Clear to Auscultation, Normal Respiratory Effort Cardiovascular: Regular Rate, Regular Rhythm GI/Abdominal Exam: Normal Bowel Sounds, Soft, Non-Tender Skin: Warm, Dry, Intact - Patient Data Lab Results Last 24 hrs: Laboratory Results - last 24 hr 07/26/17 07/26/17 07/26/17 Range/Units 15:21 15:21 15:21 WBC 6.54 (4.0-11.0) K/uL RBC 4.47 L (4.50-5.90) M/uL Hgb 12.8 L (13.0-17.0) g/dL Hct 39.1 (38.0-50.0) % MCV 87.5 (80.0-98.0) fL MCH 28.6 (27.0-32.0) pg MCHC 32.7 (31.0-37.0) g/dL RDW Std Deviation 50.7 (28.0-62.0) fl RDW Coeff of Ethan 16 H (11.0-15.0) % Plt Count 262 (150-400) K/uL MPV 9.80 (7.40-12.00) fL Neut % (Auto) 54.0 (48.0-80.0) % Lymph % (Auto) 31.7 (16.0-40.0) % [place] % (Auto) 10.9 (0.0-15.0) % Eos % (Auto) 3.2 (0.0-7.0) % Baso % (Auto) 0.2 (0.0-1.5) % Neut # (Auto) 3.5 (1.4-5.7) K/uL Lymph # (Auto) 2.1 (0.6-2.4) K/uL [place] # (Auto) 0.7 (0.0-0.8) K/uL Eos # (Auto) 0.2 (0.0-0.7) K/uL Baso # (Auto) 0.0 (0.0-0.1) K/uL Nucleated RBC % 0.0 /100WBC Nucleated RBCs # 0 K/uL INR Sodium 143 (136-148) mmol/L Potassium 3.6 (3.5-5.1) mmol/L Chloride 105 (98-107) mmol/L Carbon Dioxide 26.8 (21.0-32.0) mmol/L BUN 29 H (7.0-18.0) mg/dL Creatinine 0.9 (0.8-1.3) mg/dL Est Cr Clr Drug Dosing 68.60 mL/min Estimated GFR (MDRD) > 60.0 ml/min Glucose 120 H (74-106) mg/dL Calcium 9.2 (8.5-10.1) mg/dL Total Bilirubin 0.7 (0.2-1.0) mg/dL AST 15 (15-37) IU/L ALT 14 (14-63) IU/L Alkaline Phosphatase 65 (46-116) U/L Troponin I < 0.050 (0.000-0.056) ng/mL Total Protein 7.7 (6.4-8.2) g/dL Albumin 3.9 (3.4-5.0) g/dL Globulin 3.8 H (2.0-3.5) g/dL Albumin/Globulin Ratio 1.0 L (1.3-2.8) Blood Type Antibody Screen 07/26/17 07/26/17 Range/Units 16:03 16:03 WBC (4.0-11.0) K/uL RBC (4.50-5.90) M/uL Hgb (13.0-17.0) g/dL Hct (38.0-50.0) % MCV (80.0-98.0) fL MCH (27.0-32.0) pg MCHC (31.0-37.0) g/dL RDW Std Deviation (28.0-62.0) fl RDW Coeff of Ethan (11.0-15.0) % Plt Count (150-400) K/uL MPV (7.40-12.00) fL Neut % (Auto) (48.0-80.0) % Lymph % (Auto) (16.0-40.0) % [place] % (Auto) (0.0-15.0) % Eos % (Auto) (0.0-7.0) % Baso % (Auto) (0.0-1.5) % Neut # (Auto) (1.4-5.7) K/uL Lymph # (Auto) (0.6-2.4) K/uL [place] # (Auto) (0.0-0.8) K/uL Eos # (Auto) (0.0-0.7) K/uL Baso # (Auto) (0.0-0.1) K/uL Nucleated RBC % /100WBC Nucleated RBCs # K/uL INR 1.01 Sodium (136-148) mmol/L Potassium (3.5-5.1) mmol/L Chloride (98-107) mmol/L Carbon Dioxide (21.0-32.0) mmol/L BUN (7.0-18.0) mg/dL Creatinine (0.8-1.3) mg/dL Est Cr Clr Drug Dosing mL/min Estimated GFR (MDRD) ml/min Glucose (74-106) mg/dL Calcium (8.5-10.1) mg/dL Total Bilirubin (0.2-1.0) mg/dL AST (15-37) IU/L ALT (14-63) IU/L Alkaline Phosphatase (46-116) U/L Troponin I (0.000-0.056) ng/mL Total Protein (6.4-8.2) g/dL Albumin (3.4-5.0) g/dL Globulin (2.0-3.5) g/dL Albumin/Globulin Ratio (1.3-2.8) Blood Type O POSITIVE Antibody Screen NEGATIVE Result Diagrams: 07/26/17 15:21 07/26/17 15:21 Problem List Initiated/Reviewed/Updated: Yes Orders Last 24hrs: Active Orders 24 hr Category Date Time Status Patient Status [ADT] Stat ADT 07/26/17 18:16 Active EKG Documentation Completion [RC] STAT Care 07/26/17 15:29 Active Oxygen Therapy [RC] PRN Care 07/26/17 19:46 Ordered Up ad Violeta [RC] ASDIRECTED Care 07/26/17 19:46 Ordered VTE/DVT Education [RC] PER UNIT ROUTINE Care 07/26/17 19:46 Ordered Vital Signs [RC] Q4H Care 07/26/17 19:46 Ordered CXR [Chest 2V] [CR] Stat Exams 07/26/17 15:51 Taken BASIC METABOLIC PANEL,BMP [CHEM] AM Lab 07/27/17 05:11 Ordered CBC W/O DIFF,HEMOGRAM [HEME] AM Lab 07/27/17 05:11 Ordered CDIFF TOX A+B [OP] Routine Lab 07/26/17 19:44 Ordered CULTURE STOOL + CAMPY+SHIGATOX [RM] Routine Lab 07/26/17 19:44 Ordered TROPONIN I [CHEM] Q6H Lab 07/26/17 22:00 Ordered TROPONIN I [CHEM] Q6H Lab 07/27/17 04:00 Ordered WBC, STOOL [OP] Routine Lab 07/26/17 19:44 Ordered Aspirin [Halfprin] Med 07/27/17 09:00 Ordered 81 mg PO DAILY Carvedilol [Coreg] Med 07/26/17 21:00 Ordered 3.125 mg PO BID Clopidogrel [Plavix] Med 07/27/17 09:00 Ordered 75 mg PO DAILY Isosorbide Mononitrate [Imdur] Med 07/27/17 09:00 Ordered 30 mg PO DAILY PARoxetine [Paxil] Med 07/27/17 09:00 Ordered 10 mg PO DAILY Pantoprazole [ProTONIX] Med 07/27/17 07:30 Ordered 40 mg PO ACBREAKFAST Pravastatin [Pravachol] Med 07/27/17 09:00 Ordered 40 mg PO DAILY Sodium Chloride 0.9% [Normal Saline] 1,000 ml Med 07/26/17 17:45 Active IV ASDIRECTED Sequential Compression Device [OM.PC] Per Unit Routine Oth 07/26/17 19:47 Ordered Resuscitation Status Routine Resus Stat 07/26/17 19:46 Ordered Medication Orders Aspirin (Halfprin) 81 mg PO DAILY ERICK Carvedilol (Coreg) 3.125 mg PO BID ERICK Clopidogrel Bisulfate (Plavix) 75 mg PO DAILY ERICK Sodium Chloride (Normal Saline) 1,000 mls @ 125 mls/hr IV ASDIRECTED ERICK Stop: 07/28/17 01:44 Last Admin: 07/26/17 17:39 Dose: 125 mls/hr Isosorbide Mononitrate (Imdur) 30 mg PO DAILY ERICK Pantoprazole Sodium (Protonix) 40 mg PO ACBREAKFAST ERICK Paroxetine HCl (Paxil) 10 mg PO DAILY ERICK Pravastatin Sodium (Pravachol) 40 mg PO DAILY [facility] Assessment/Plan Comment:: 72 yo male admitted with generalized weakness, chest pain and diarrhea. I suspect patient may be dehydrated. Plan is to hydrate with IV fluids and hold lasix. we will send stool to lab and trend cardiac enzymes. We will monitor overnight on telemetry.
[2017-07-26] MEDS ORDERED: LORazepam 2 MG/ML SDV IVPUSH PRN (20:52)
[2017-07-26] MEDS: Carvedilol 3.125 MG Tab PO SCH (20:56)
[2017-07-26] MEDS ORDERED: Thiamine 100 MG Tab PO SCH (21:00)
[2017-07-26] MEDS ORDERED: Folic Acid 1 MG Tab PO SCH (21:00)
[2017-07-26] MEDS ORDERED: Acetaminophen 325 MG Tab PO PRN (21:07)
[2017-07-26] MEDS ORDERED: Morphine 4 MG/ML Syringe IVPUSH PRN (21:08)
[2017-07-27] MEDS: Sodium Chloride 0.9% 1,000 ML IV SCH (01:44)
[2017-07-27 04:38] LABS: CHLORIDE,CL 109 mmol/L (98-107); SODIUM,NA 145 mmol/L (136-148)
[2017-07-27] MEDS ORDERED: Pantoprazole 40 MG Tab.CR PO SCH (07:30)
[2017-07-27] MEDS ORDERED: Potassium Chloride 20 MEQ Tab.ER PO ONE (08:02)
[2017-07-27 08:08] VITALS: BP 134/83
[2017-07-27] MEDS: Carvedilol 3.125 MG Tab PO SCH (08:11)
[2017-07-27] MEDS ORDERED: Clopidogrel 75 MG Tab PO SCH (09:00)
[2017-07-27] MEDS ORDERED: PARoxetine 20 MG Tab PO SCH (09:00)
[2017-07-27] MEDS ORDERED: Pravastatin 40 MG Tab PO SCH (09:00)
[2017-07-27] MEDS ORDERED: Isosorbide Mononitrate 30 MG Tab.ER PO SCH ×2 (09:00)
[2017-07-27] MEDS ORDERED: Aspirin 81 MG Tab.EC PO SCH (09:00)
--- NOTE | 2017-07-27 10:24 | PCM.DCSUM1 ---
Discharge Summary - Hospital Course Brief History: 72 yo male with pmh of CAD, alcohol abuse, and multiple admissions for chest pain, weakness and syncope. He was sent to the ED from clinic due to his weakness and inability to ambulate. Patient reports four day history of diarrhea and today he started having chest pain. He denies any shortness of breath, cough, or fevers, he denies any blood in stool, nausea, nor vomiting. ED provider's rectal exam had minimal stool that was nonbloody. - Discharge Data Discharge Date: 07/27/17 Discharge Disposition: Home, Self-Care 01 Condition: Good - Discharge Diagnosis/Problem(s) (1) Dehydration SNOMED Code(s): 66867628 ICD Code: E86.0 - DEHYDRATION Status: Acute Current Visit: Yes (2) Atypical chest pain SNOMED Code(s): 871200592 ICD Code: R07.89 - OTHER CHEST PAIN Status: Acute Priority: High Current Visit: No (3) Anxiety SNOMED Code(s): 11141116 ICD Code: F41.9 - ANXIETY DISORDER, UNSPECIFIED Status: Chronic Current Visit: No (4) Coronary artery disease SNOMED Code(s): 71839781 ICD Code: I25.10 - ATHSCL HEART DISEASE OF [place] CORONARY ARTERY W/O ANG PCTRS Status: Chronic Priority: Medium Current Visit: No Qualifiers: Associated angina: with unspecified angina (5) HTN (hypertension) SNOMED Code(s): 87440747 ICD Code: I10 - ESSENTIAL (PRIMARY) HYPERTENSION Status: Chronic Priority : Medium Current Visit: No Qualifiers: Hypertension type: essential hypertension Qualified Code(s): I10 - Essential (primary) hypertension (6) History of alcohol use SNOMED Code(s): 322920503 ICD Code: Z87.898 - PERSONAL HISTORY OF OTHER SPECIFIED CONDITIONS Status: Chronic Priority: Low Current Visit: No (7) History of coronary artery stent placement SNOMED Code(s): 055981946, 543979807 ICD Code: Z95.5 - PRESENCE OF CORONARY ANGIOPLASTY IMPLANT AND GRAFT Status : Chronic Priority: Medium Current Visit: No (8) Hyperlipidemia SNOMED Code(s): 98800415 ICD Code: E78.5 - HYPERLIPIDEMIA, UNSPECIFIED Status: Chronic Priority: Medium Current Visit: No Qualifiers: Hyperlipidemia type: unspecified Qualified Code(s): E78.5 - Hyperlipidemia , unspecified - Patient Summary/Data Consults: Consultations 07/27/17 09:21 PT Evaluation and Treatment [CONS] Routine - Patient Instructions Diet: Heart Healthy Diet Activity: No Strenuous Activities Showering/Bathing: August Shower Notify Provider of: Fever, Increased Pain, Swelling and Redness, Drainage, Nausea and/or Vomiting - Discharge Plan Home Medications: Home Meds Carvedilol 3.125 mg PO BID 09/22/16 [History] Isosorbide Mononitrate [Imdur] 30 mg PO DAILY 09/22/16 [History] Pantoprazole [ProTONIX] 40 mg PO ACBREAKFAST 09/22/16 [History] Pravastatin [Pravachol] 40 mg PO DAILY 09/22/16 [History] Nitroglycerin [Nitrostat] 0.4 mg SL Q5M PRN 11/22/16 [History] Clopidogrel [Plavix] 75 mg PO DAILY 04/19/17 [History] Nabumetone 500 mg PO BIDMEALS PRN 04/19/17 [History] PARoxetine [Paxil] 10 mg PO DAILY 04/19/17 [History] traMADol HCl [Tramadol HCl] 50 mg PO TID PRN 04/19/17 [History] Aspirin [Halfprin] 81 mg PO DAILY #0 tab.ec 04/20/17 [Rx] oxyCODONE HCl/Acetaminophen [oxyCODONE-Acetaminophen 5-325] 1 tab PO Q6H PRN 7 Days #28 tablet 05/04/17 [Rx] Referrals: Bo Lopez MD [Physician] - - Discharge Summary/Plan Comment DC Time >30 min.: No Discharge Summary/Plan Comment: Discharge Diagnoses: Dehydration Diarrhea Atypical chest pain HTN Anxiety CAD with hx [place] and stenting Hyperlipidemia Dino was admitted and monitored overnight. He has not had any further diarrhea since admission. ACS ruled out, all troponins negative and no ischemic changes noted on telemetry. He was given 2 L IVFs overnight for dehydration. He is feeling better this morning. We will continue all home medications and have him followup with Dr Lopez in 1 week. He reports he had stopped the Lasix and Imdur per Dr Camarena, but had restarted the Imdur because he didn't feel right 2- 3 days after stopping it. He was evaluated by PT for ambulation. He is to return to the ED if any concerns should arise. - General Info Date of Service: 07/27/17 Admission Dx/Problem (Free Text: Admission Diagnosis/Problem Admission Diagnosis/Problem Chest pain Subjective Update: Feeling better this morning. No chest pain or SOB. Upset stomach after Potassium tabs. Otherwise doing well. Awaiting PT evaluation for discharge home. Functional Status: Reports: Pain Controlled, Tolerating Diet, Ambulating, Urinating - Review of Systems General: Reports: No Symptoms. Denies: Fever, Weakness, Fatigue, Malaise HEENT: Reports: No Symptoms. Denies: Headaches, Sore Throat, Visual Changes Pulmonary: Reports: No Symptoms. Denies: Shortness of Breath Cardiovascular: Reports: No Symptoms. Denies: Chest Pain, Palpitations Gastrointestinal: Reports: No Symptoms. Denies: Abdominal Pain, Nausea, Vomiting Genitourinary: Reports: No Symptoms. Denies: Dysuria, Frequency Musculoskeletal: Reports: No Symptoms Neurological: Reports: No Symptoms Psychiatric: Reports: No Symptoms - Patient Data Vitals - Most Recent: Last Vital Signs Temp 97.4 F 07/27/17 08:00 Pulse 78 07/27/17 08:11 Resp 17 07/27/17 08:00 BP 134/83 07/27/17 08:27 Pulse Ox 96 07/27/17 08:00 Orthostatic Blood Pressure [ 109/66 Standing] Orthostatic Blood Pressure [ 102/69 Sitting] Orthostatic Blood Pressure [ 108/64 Supine] Weight - Most Recent: 63.367 kg I&O - Last 24 hours: Intake & Output 07/26/17 07/27/17 07/27/17 22:59 06:59 14:59 Intake Total 1100 Output Total 250 Balance 850 Lab Results - Last 24 hrs: Laboratory Results - last 24 hr 07/26/17 07/26/17 07/26/17 Range/Units 15:21 15:21 15:21 WBC 6.54 (4.0-11.0) K/uL RBC 4.47 L (4.50-5.90) M/uL Hgb 12.8 L (13.0-17.0) g/dL Hct 39.1 (38.0-50.0) % MCV 87.5 (80.0-98.0) fL MCH 28.6 (27.0-32.0) pg MCHC 32.7 (31.0-37.0) g/dL RDW Std Deviation 50.7 (28.0-62.0) fl RDW Coeff of Ethan 16 H (11.0-15.0) % Plt Count 262 (150-400) K/uL MPV 9.80 (7.40-12.00) fL Neut % (Auto) 54.0 (48.0-80.0) % Lymph % (Auto) 31.7 (16.0-40.0) % Noble % (Auto) 10.9 (0.0-15.0) % Eos % (Auto) 3.2 (0.0-7.0) % Baso % (Auto) 0.2 (0.0-1.5) % Neut # (Auto) 3.5 (1.4-5.7) K/uL Lymph # (Auto) 2.1 (0.6-2.4) K/uL Noble # (Auto) 0.7 (0.0-0.8) K/uL Eos # (Auto) 0.2 (0.0-0.7) K/uL Baso # (Auto) 0.0 (0.0-0.1) K/uL Nucleated RBC % 0.0 /100WBC Nucleated RBCs # 0 K/uL INR Sodium 143 (136-148) mmol/L Potassium 3.6 (3.5-5.1) mmol/L Chloride 105 (98-107) mmol/L Carbon Dioxide 26.8 (21.0-32.0) mmol/L BUN 29 H (7.0-18.0) mg/dL Creatinine 0.9 (0.8-1.3) mg/dL Est Cr Clr Drug Dosing 68.60 mL/min Estimated GFR (MDRD) > 60.0 ml/min Glucose 120 H (74-106) mg/dL Calcium 9.2 (8.5-10.1) mg/dL Total Bilirubin 0.7 (0.2-1.0) mg/dL AST 15 (15-37) IU/L ALT 14 (14-63) IU/L Alkaline Phosphatase 65 (46-116) U/L Troponin I < 0.050 (0.000-0.056) ng/mL Total Protein 7.7 (6.4-8.2) g/dL Albumin 3.9 (3.4-5.0) g/dL Globulin 3.8 H (2.0-3.5) g/dL Albumin/Globulin Ratio 1.0 L (1.3-2.8) Blood Type Antibody Screen 07/26/17 07/26/17 07/26/17 Range/Units 16:03 16:03 21:53 WBC (4.0-11.0) K/uL RBC (4.50-5.90) M/uL Hgb (13.0-17.0) g/dL Hct (38.0-50.0) % MCV (80.0-98.0) fL MCH (27.0-32.0) pg MCHC (31.0-37.0) g/dL RDW Std Deviation (28.0-62.0) fl RDW Coeff of Ethan (11.0-15.0) % Plt Count (150-400) K/uL MPV (7.40-12.00) fL Neut % (Auto) (48.0-80.0) % Lymph % (Auto) (16.0-40.0) % Noble % (Auto) (0.0-15.0) % Eos % (Auto) (0.0-7.0) % Baso % (Auto) (0.0-1.5) % Neut # (Auto) (1.4-5.7) K/uL Lymph # (Auto) (0.6-2.4) K/uL Noble # (Auto) (0.0-0.8) K/uL Eos # (Auto) (0.0-0.7) K/uL Baso # (Auto) (0.0-0.1) K/uL Nucleated RBC % /100WBC Nucleated RBCs # K/uL INR 1.01 Sodium (136-148) mmol/L Potassium (3.5-5.1) mmol/L Chloride (98-107) mmol/L Carbon Dioxide (21.0-32.0) mmol/L BUN (7.0-18.0) mg/dL Creatinine (0.8-1.3) mg/dL Est Cr Clr Drug Dosing mL/min Estimated GFR (MDRD) ml/min Glucose (74-106) mg/dL Calcium (8.5-10.1) mg/dL Total Bilirubin (0.2-1.0) mg/dL AST (15-37) IU/L ALT (14-63) IU/L Alkaline Phosphatase (46-116) U/L Troponin I < 0.050 (0.000-0.056) ng/mL Total Protein (6.4-8.2) g/dL Albumin (3.4-5.0) g/dL Globulin (2.0-3.5) g/dL Albumin/Globulin Ratio (1.3-2.8) Blood Type O POSITIVE Antibody Screen NEGATIVE 07/27/17 07/27/17 07/27/17 Range/Units 04:08 04:08 04:08 WBC 4.20 (4.0-11.0) K/uL RBC 3.94 L (4.50-5.90) M/uL Hgb 11.2 L (13.0-17.0) g/dL Hct 34.5 L (38.0-50.0) % MCV 87.6 (80.0-98.0) fL MCH 28.4 (27.0-32.0) pg MCHC 32.5 (31.0-37.0) g/dL RDW Std Deviation 50.2 (28.0-62.0) fl RDW Coeff of Ethan 16 H (11.0-15.0) % Plt Count 178 (150-400) K/uL MPV 9.30 (7.40-12.00) fL Neut % (Auto) (48.0-80.0) % Lymph % (Auto) (16.0-40.0) % Noble % (Auto) (0.0-15.0) % Eos % (Auto) (0.0-7.0) % Baso % (Auto) (0.0-1.5) % Neut # (Auto) (1.4-5.7) K/uL Lymph # (Auto) (0.6-2.4) K/uL Noble # (Auto) (0.0-0.8) K/uL Eos # (Auto) (0.0-0.7) K/uL Baso # (Auto) (0.0-0.1) K/uL Nucleated RBC % 0.0 /100WBC Nucleated RBCs # 0 K/uL INR Sodium 145 (136-148) mmol/L Potassium 3.4 L (3.5-5.1) mmol/L Chloride 109 H (98-107) mmol/L Carbon Dioxide 26.1 (21.0-32.0) mmol/L BUN 25 H (7.0-18.0) mg/dL Creatinine 0.8 (0.8-1.3) mg/dL Est Cr Clr Drug Dosing 77.01 mL/min Estimated GFR (MDRD) > 60.0 ml/min Glucose 98 (74-106) mg/dL Calcium 8.3 L (8.5-10.1) mg/dL Total Bilirubin (0.2-1.0) mg/dL AST (15-37) IU/L ALT (14-63) IU/L Alkaline Phosphatase (46-116) U/L Troponin I < 0.050 (0.000-0.056) ng/mL Total Protein (6.4-8.2) g/dL Albumin (3.4-5.0) g/dL Globulin (2.0-3.5) g/dL Albumin/Globulin Ratio (1.3-2.8) Blood Type Antibody Screen Med Orders - Current: Current Medications Acetaminophen (Tylenol) 650 mg PO Q6H PRN PRN Reason: Pain Last Admin: 07/26/17 22:21 Dose: 650 mg Aspirin (Halfprin) 81 mg PO DAILY [facility] Last Admin: 07/27/17 08:09 Dose: 81 mg Carvedilol (Coreg) 3.125 mg PO BID [facility] Last Admin: 07/27/17 08:11 Dose: 3.125 mg Clopidogrel Bisulfate (Plavix) 75 mg PO DAILY [facility] Last Admin: 07/27/17 08:09 Dose: 75 mg Folic Acid (Folic Acid) 1 mg PO BEDTIME [facility] Last Admin: 07/26/17 20:43 Dose: 1 mg Sodium Chloride (Normal Saline) 1,000 mls @ 125 mls/hr IV ASDIRECTED [facility] Stop: 07/28/17 01:44 Last Admin: 07/27/17 01:44 Dose: 125 mls/hr Isosorbide Mononitrate (Imdur) 30 mg PO DAILY [facility] Last Admin: 07/27/17 09:00 Dose: Not Given Lorazepam (Ativan) 0 mg IVPUSH Q4H PRN; Protocol PRN Reason: Anxiety Last Admin: 07/27/17 09:07 Dose: 1 mg Morphine Sulfate (Morphine) 2 mg IVPUSH Q2H PRN PRN Reason: Pain Pantoprazole Sodium (Protonix) 40 mg PO ACBREAKFAST [facility] Last Admin: 07/27/17 08:11 Dose: 40 mg Paroxetine HCl (Paxil) 10 mg PO DAILY [facility] Last Admin: 07/27/17 08:10 Dose: 10 mg Pravastatin Sodium (Pravachol) 40 mg PO DAILY [facility] Last Admin: 07/27/17 08:10 Dose: 40 mg Thiamine HCl (Vitamin B-1) 100 mg PO BEDTIME [facility] Last Admin: 07/26/17 20:43 Dose: 100 mg Discontinued Medications Pantoprazole Sodium 80 mg/ (Sodium Chloride) 100 mls @ 10 mls/hr IV .Continuous [facility] Sodium Chloride (Normal Saline) 1,000 mls @ 125 mls/hr IV STAT ONE Stop: 07/26/17 23:56 Last Admin: 07/26/17 16:14 Dose: 999 mls/hr Isosorbide Mononitrate (Imdur) 30 mg PO DAILY [facility] Last Admin: 07/27/17 08:27 Dose: 30 mg Morphine Sulfate (Morphine) 2 mg IVPUSH ONETIME ONE Stop: 07/26/17 16:03 Last Admin: 07/26/17 16:13 Dose: 2 mg Ondansetron HCl (Zofran) 4 mg IVPUSH ONETIME ONE Stop: 07/26/17 16:05 Last Admin: 07/26/17 16:13 Dose: 4 mg Pantoprazole Sodium (Protonix Iv) 80 mg IVPUSH .BOLUS ONE Stop: 07/26/17 15:54 Last Admin: 07/26/17 16:03 Dose: 80 mg Pantoprazole Sodium (Protonix Iv) 80 mg IVPUSH NOW ONE Stop: 07/26/17 16:06 Last Admin: 07/26/17 16:12 Dose: Not Given Potassium Chloride (Klor-Con M20) 40 meq PO ONETIME ONE Stop: 07/27/17 08:03 Last Admin: 07/27/17 08:28 Dose: 40 meq - Exam General: Reports: Alert, Oriented, Cooperative, No Acute Distress Lungs: Reports: Clear to Auscultation, Normal Respiratory Effort Cardiovascular: Reports: Regular Rate, Regular Rhythm GI/Abdominal Exam: Normal Bowel Sounds, Soft, Non-Tender, No Organomegaly, No Distention, No Abnormal Bruit, No Mass, Pelvis Stable Extremities: Normal Inspection, Normal Range of Motion, Non-Tender, No Pedal Edema, Normal Capillary Refill Neurological: Reports: No New Focal Deficit Psy/Mental Status: Reports: Alert, Normal Affect, Normal Mood
--- NOTE | 2017-07-27 10:42 | CR ---
EXAM DATE: 07/26/17 PATIENT'S AGE: 72 Patient: BERNARD BORREGO Facility: [place], [place] Site . Site : [id number] Study: XRay Chest [id number]/10/2018 4:57:20 PM Ordering Physician: Doctor Douglas Final Report: HISTORY: Chest pain. HISTORY: PA and lateral chest radiographs are compared with 03 May 2017. EKG leads overlie the thorax. The cardiac silhouette is normal. Lateral radiograph demonstrates coronary artery stent. Pulmonary vasculature is free of cephalization. No lobar consolidation or pleural effusion is seen. Vertebral body heights are maintained within the thoracic spine. IMPRESSION: No acute cardiopulmonary disease. Dictated by Charlee Daniel MD @ 07/26/2017 5:18:06 PM Dictated by: Charlee Daniel MD @ 07/26/2017 17:18:25 (Electronic Signature) Report Signed by Proxy. ETHAN
== END 2017-07-27 12:58 | disposition home or self-care (01) ==
LOC: MW.ED 15:12 → MW.MS 18:16
PROVIDERS: ADMIT Internal Medicine; ATTEND Internal Medicine
DX: E86.0 Dehydration (principal); R07.89 Other chest pain; F41.9 Anxiety disorder, unspecified; I25.10 Atherosclerotic heart disease of native coronary artery without angina pectoris; I10 Essential (primary) hypertension; E78.5 Hyperlipidemia, unspecified; Z87.898 Personal history of other specified conditions; Z95.5 Presence of coronary angioplasty implant and graft; Z79.82 Long term (current) use of aspirin; Z79.899 Other long term (current) drug therapy; Z87.891 Personal history of nicotine dependence
CPT/HCPCS: 36415; 71046; 80048; 80053; 84484; 85025; 85027; 85610; 86850; 86900; 86901; 96361; 96374; 96375; 97161; 99285; A9270; C9113; G0378; J2060; J2270; J2405; J7040

== ENCOUNTER 2017-08-03 10:26 | Observation (INO) | payer MEDICARE ==
[2017-08-03] MEDS ORDERED: Sodium Chloride 0.9% 1,000 ML IV ONE (10:29)
--- NOTE | 2017-08-03 10:45 | EDM.PDOC ---
ED HPI GENERAL MEDICAL PROBLEM - General Stated Complaint: PASSED OUT TWICE Time Seen by Provider: 08/03/17 10:27 Source of Information: Reports: Patient History Limitations: Reports: No Limitations - History of Present Illness INITIAL COMMENTS - FREE TEXT/NARRATIVE: HISTORY AND PHYSICAL: History of present illness: Patient is a 72-year-old male who presents to the emergency room from our outpatient lab after having 2 syncopal events. Patient states that he going to outpatient lab this morning for his upcoming cardiology appointment this afternoon with Dr. Arceo. Upon getting registered he had a syncopal event which they called a rapid response on. Patient's vital signs were stable upon the staff evaluation and he continued to proceed with his lab draw. Patient had a second syncopal event, during this time he felt diaphoretic and weak. Lab staff then brought him to the emergency room for evaluation. Patient states he has had some epigastric pain, weakness, back pain and syncopal events over the past 2 days. Denies having any symptoms or warning prior to his syncopal events. He denies any fever, chills, chest pain or shortness of breath. Patient denies any dizziness, vertigo, headache or change in vision. Patient was last admitted on 07/26/2017 at our facility for syncopal events, weakness and chest pain. Past medical history of high cholesterol, hypertension, [place] with stent placement , alcohol abuse. Review of systems: As per history of present illness and below otherwise all systems reviewed and negative. Past medical history: As per history of present illness and as reviewed below otherwise noncontributory. Surgical history: As per history of present illness and as reviewed below otherwise noncontributory. Social history: No reported history of drug or alcohol abuse. Family history: As per history of present illness and as reviewed below otherwise noncontributory. Physical exam: General: Alert and oriented 72-year-old male. Nontoxic appearing and in no acute distress. HEENT: Atraumatic, normocephalic, pupils equal and reactive bilaterally, negative for conjunctival pallor or scleral icterus, mucous membranes moist, throat clear, neck supple, nontender, trachea midline. No drooling or trismus noted. No meningeal signs Lungs: Clear to auscultation, breath sounds equal bilaterally, chest nontender. Heart: S1S2, regular rate and rhythm without overt murmur Abdomen: Soft, nondistended, epigastric tenderness. Negative for masses or hepatosplenomegaly. Negative for costovertebral tenderness. Pelvis: Stable nontender. Genitourinary: Deferred. Rectal: Deferred. Skin: Intact, warm, dry. No lesions or rashes noted. Extremities: Atraumatic, negative for cords or calf pain. Neurovascular unremarkable. Neuro: Awake, alert, oriented. Cranial nerves II through XII unremarkable. Cerebellum unremarkable. Motor and sensory unremarkable throughout. Exam nonfocal. Notes: Lab work, EKG and chest x-ray are unremarkable. Due to the patient's extensive cardiac history and would like to keep him for observation with telemetry. Patient was shared these findings and he is agreeable to staying. Hospitalist has been paged. Dr Ocampo was consulted. She is requesting a head CT. Agreeable for observation with telemetry. Diagnostics: CBC, CMP, troponin, EKG, one view chest x-ray, orthostatic vital signs, amylase , lipase, h.pylori, CT head (per Damaris request) Therapeutics: IV fluid, GI cocktail Impression: Syncope Plan: Observation admission with telemetry Definitive disposition and diagnosis as appropriate pending reevaluation and review of above. Duration: Day(s): abdominal Pain Score (Numeric/FACES): 10 - Related Data Allergies Allergy/AdvReac Type Severity Reaction Status Date / Time No Known Allergies Allergy Verified 08/03/17 10:31 Home Meds: Home Meds Carvedilol 3.125 mg PO BID 09/22/16 [History] Isosorbide Mononitrate [Imdur] 30 mg PO DAILY 09/22/16 [History] Pantoprazole [ProTONIX] 40 mg PO ACBREAKFAST 09/22/16 [History] Pravastatin [Pravachol] 40 mg PO DAILY 09/22/16 [History] Nitroglycerin [Nitrostat] 0.4 mg SL Q5M PRN 11/22/16 [History] Clopidogrel [Plavix] 75 mg PO DAILY 04/19/17 [History] Nabumetone 500 mg PO BIDMEALS PRN 04/19/17 [History] PARoxetine [Paxil] 10 mg PO DAILY 04/19/17 [History] traMADol HCl [Tramadol HCl] 50 mg PO TID PRN 04/19/17 [History] Aspirin [Halfprin] 81 mg PO DAILY #0 tab.ec 04/20/17 [Rx] oxyCODONE HCl/Acetaminophen [oxyCODONE-Acetaminophen 5-325] 1 tab PO Q6H PRN 7 Days #28 tablet 05/04/17 [Rx] Past Medical History - Past Health History Medical/Surgical History: Denies Medical/Surgical History HEENT History: Reports: None Cardiovascular History: Reports: High Cholesterol, Hypertension, [place], Stents Respiratory History: Reports: None Gastrointestinal History: Reports: None Genitourinary History: Reports: None Musculoskeletal History: Reports: None Neurological History: Reports: None Psychiatric History: Reports: None Endocrine/Metabolic History: Reports: None Hematologic History: Reports: None Immunologic History: Reports: None Oncologic (Cancer) History: Reports: None Dermatologic History: Reports: None - Infectious Disease History Infectious Disease History: Reports: None - Past Surgical History Head Surgeries/Procedures: Reports: None HEENT Surgical History: Reports: Tonsillectomy, Other (See Below) Other HEENT Surgeries/Procedures: Dental extraction. Throat Surgery Cardiovascular Surgical History: Reports: Coronary Artery Stent Respiratory Surgical History: Reports: None Social & Family History - Family History Family Medical History: Noncontributory Cardiac: Reports: [place] Respiratory: Reports: None Endocrine/Metabolic: Reports: Diabetes, Type I Hematologic: Reports: None Oncologic: Reports: Other (See Below) Other Oncologic Family History: Father side has cancer but patient doesn't know exactly what kind of CA - Tobacco Use Smoking Status *Q: Never Smoker Years of Tobacco use: 1 Used Tobacco, but Quit: Yes Month/Year Tobacco Last Used: 2009 Second Hand Smoke Exposure: No - Caffeine Use Caffeine Use: Reports: None Caffeine Use Comment: daily - Alcohol Use Days Per Week of Alcohol Use: 1 Number of Drinks Per Day: 2 Total Drinks Per Week: 2 - Recreational Drug Use Recreational Drug Use: No - Living Situation & Occupation Living situation: Reports: Occupation: Retired ED ROS GENERAL - Review of Systems Review Of Systems: ROS reveals no pertinent complaints other than HPI. ED EXAM, GENERAL - Physical Exam Exam: See Below (See dictation) Course - Vital Signs Last Recorded V/S: Last Vital Signs Temp 96.9 F 08/03/17 10:31 Pulse 77 08/03/17 10:31 Resp 18 08/03/17 10:31 BP 119/86 08/03/17 10:31 Pulse Ox 99 08/03/17 10:31 Orthostatic Blood Pressure [ 121/86 Standing] Orthostatic Blood Pressure [ 140/93 Sitting] Orthostatic Blood Pressure [ 122/81 Supine] - Orders/Labs/Meds Orders: Active Orders 24 hr Category Date Time Status Admission Status [Patient Status] [ADT] Stat ADT 08/03/17 11:26 Ordered EKG Documentation Completion [RC] STAT Care 08/03/17 10:29 Active Orthostatic Vital Signs [RC] ASDIRECTED Care 08/03/17 10:29 Active Head wo Cont [CT] Stat Exams 08/03/17 11:26 Ordered AMYLASE [CHEM] Stat Lab 08/03/17 11:28 Ordered HELICOBACTER PYLORI AB IGG [CHEM] Stat Lab 08/03/17 11:28 Ordered LIPASE [CHEM] Stat Lab 08/03/17 11:28 Ordered Sodium Chloride 0.9% [Normal Saline] 1,000 ml Med 08/03/17 10:29 Active IV STAT Medication Orders Sodium Chloride (Normal Saline) 1,000 mls @ 999 mls/hr IV STAT ONE Stop: 08/03/17 11:29 Last Admin: 08/03/17 10:52 Dose: 999 mls/hr Labs: Laboratory Tests 08/03/17 08/03/17 Range/Units 10:39 10:39 WBC 6.95 (4.0-11.0) K/uL RBC 4.53 (4.50-5.90) M/uL Hgb 13.1 (13.0-17.0) g/dL Hct 39.2 (38.0-50.0) % MCV 86.5 (80.0-98.0) fL MCH 28.9 (27.0-32.0) pg MCHC 33.4 (31.0-37.0) g/dL RDW Std Deviation 48.5 (28.0-62.0) fl RDW Coeff of Ethan 15 (11.0-15.0) % Plt Count 265 (150-400) K/uL MPV 9.70 (7.40-12.00) fL Neut % (Auto) 59.0 (48.0-80.0) % Lymph % (Auto) 27.5 (16.0-40.0) % Leslie % (Auto) 10.6 (0.0-15.0) % Eos % (Auto) 2.6 (0.0-7.0) % Baso % (Auto) 0.3 (0.0-1.5) % Neut # (Auto) 4.1 (1.4-5.7) K/uL Lymph # (Auto) 1.9 (0.6-2.4) K/uL Leslie # (Auto) 0.7 (0.0-0.8) K/uL Eos # (Auto) 0.2 (0.0-0.7) K/uL Baso # (Auto) 0.0 (0.0-0.1) K/uL Nucleated RBC % 0.0 /100WBC Nucleated RBCs # 0 K/uL Sodium 142 (136-148) mmol/L Potassium 3.4 L (3.5-5.1) mmol/L Chloride 106 (98-107) mmol/L Carbon Dioxide 23.9 (21.0-32.0) mmol/L BUN 19 H (7.0-18.0) mg/dL Creatinine 0.8 (0.8-1.3) mg/dL Est Cr Clr Drug Dosing 69.15 mL/min Estimated GFR (MDRD) > 60.0 ml/min Glucose 171 H (74-106) mg/dL Calcium 9.5 (8.5-10.1) mg/dL Total Bilirubin 0.7 (0.2-1.0) mg/dL AST 20 (15-37) IU/L ALT 15 (14-63) IU/L Alkaline Phosphatase 65 (46-116) U/L Troponin I < 0.050 (0.000-0.056) ng/mL Total Protein 7.9 (6.4-8.2) g/dL Albumin 4.2 (3.4-5.0) g/dL Globulin 3.7 H (2.0-3.5) g/dL Albumin/Globulin Ratio 1.1 L (1.3-2.8) Meds: Medications Generic Name Dose Route Start Last Admin Trade Name Freq PRN Reason Stop Dose Admin Sodium Chloride 1,000 mls @ 999 mls/hr 08/03/17 10:29 08/03/17 10:52 Normal Saline IV 08/03/17 11:29 999 mls/hr STAT ONE Administration Discontinued Medications Generic Name Dose Route Start Last Admin Trade Name Tenisha PRN Reason Stop Dose Admin Al Hydroxide/Mg Hydroxide 15 0 ml 08/03/17 11:19 08/03/17 11:24 ml/ Lidocaine HCl 5 ml PO 08/03/17 11:20 20 each ONETIME ONE Administration Departure - Departure Time of Disposition: 11:29 Disposition: Refer to Observation Clinical Impression: Syncope Qualifiers: Syncope type: unspecified Qualified Code(s): R55 - Syncope and collapse - Discharge Information Referrals: PCP,Unknown [Primary Care Provider] - - My Orders Last 24 Hours: My Active Orders 08/03/17 10:29 EKG Documentation Completion [RC] STAT Orthostatic Vital Signs [RC] ASDIRECTED Sodium Chloride 0.9% [Normal Saline] 1,000 ml IV STAT 08/03/17 11:26 Admission Status [Patient Status] [ADT] Stat Head wo Cont [CT] Stat 08/03/17 11:28 AMYLASE [CHEM] Stat HELICOBACTER PYLORI AB IGG [CHEM] Stat LIPASE [CHEM] Stat - Assessment/Plan Last 24 Hours: My Active Orders 08/03/17 10:29 EKG Documentation Completion [RC] STAT Orthostatic Vital Signs [RC] ASDIRECTED Sodium Chloride 0.9% [Normal Saline] 1,000 ml IV STAT 08/03/17 11:26 Admission Status [Patient Status] [ADT] Stat Head wo Cont [CT] Stat 08/03/17 11:28 AMYLASE [CHEM] Stat HELICOBACTER PYLORI AB IGG [CHEM] Stat LIPASE [CHEM] Stat
[2017-08-03 11:16] LABS: CHLORIDE,CL 106 mmol/L (98-107); SODIUM,NA 142 mmol/L (136-148)
[2017-08-03] MEDS ORDERED: Alum Hydrox/Mag Hydrox/Simeth 15 ML, Lidocaine 2% 5 ML PO ONE ×2 (11:19)
--- NOTE | 2017-08-03 11:27 | CR ---
EXAMINATION: Portable chest radiograph. HISTORY: Syncope. FINDINGS: The trachea is midline. The cardiomediastinal silhouette is within normal limits. No pulmonary infilt rates, effusions or pneumothorax. Osseous structures appear unremarkable. IMPRESSION: No acute cardiopulmonary process.
--- NOTE | 2017-08-03 12:01 | CT ---
EXAMINATION: Non contrast CT head. Coronal and sagittal reformats. HISTORY: Pain FINDINGS: No evidence of intra or extra axial hemorrhage, mass, midline shift, hydrocephalus or edema. Mild ge neralized atrophy. No hypoattenuation changes in the major vascular territories to suggest acute infarct. No abnormal intracranial calcifications are detected. No evidence of substantial vascular calcificat ions. Paranasal sinuses and mastoid air cells are well aerated without substantial findings. Mild lateral deviation of the nasal septum. Previous lens extractions. Pituitary fossa appears unremarkable. Calvarium is intact. No evidence of skull fracture. IMPRESSION: No acute intracranial findings.
[2017-08-03] MEDS ORDERED: Sodium Chloride 0.9% 10 ML Syringe FLUSH PRN (14:14)
[2017-08-03] MEDS ORDERED: Acetaminophen 325 MG Tab PO PRN (14:14)
[2017-08-03] MEDS ORDERED: Sodium Chloride 0.9% 2.5 ML Syringe FLUSH PRN (14:14)
[2017-08-03] MEDS ORDERED: traMADol 50 MG Tab PO PRN (14:21)
[2017-08-03] MEDS ORDERED: Acetaminophen/oxyCODONE 325-5 MG Tab PO PRN (14:21)
[2017-08-03] MEDS ORDERED: Nitroglycerin 0.4 MG Tab.SL SL PRN (14:21)
[2017-08-03] MEDS ORDERED: Aluminum Hydroxide/Magnesium Hydroxide/Simethicone Susp 30 ML Cup PO PRN (15:01)
[2017-08-03] MEDS ORDERED: Pantoprazole 40 MG Vial IVPUSH ONE (15:01)
[2017-08-03] MEDS: Morphine 4 MG/ML Syringe IVPUSH PRN ×2 (15:28→19:29)
[2017-08-03] MEDS: Sodium Chloride 0.9% 1,000 ML IV SCH (18:25)
[2017-08-03] MEDS ORDERED: Pravastatin 40 MG Tab PO SCH (21:00)
[2017-08-03] MEDS: Carvedilol 3.125 MG Tab PO SCH (21:48)
[2017-08-03] MEDS: Pantoprazole 80 MG in Sodium Chloride 0.9% 100 ML IV SCH (21:52)
--- NOTE | 2017-08-03 23:35 | PCM.HP ---
H&P History of Present Illness - General Date of Service: 08/03/17 Admit Problem/Dx: Admission Diagnosis/Problem Admission Diagnosis/Problem Syncope, abdominal pain Source of Information: Patient History Limitations: Reports: No Limitations - History of Present Illness Initial Comments - Free Text/Narative: Patient is a 72 y old man who presented to [facility] because patient patient passed out while he was at the labs to have blood drawn. Rapid response was called , patient was sitting in the chair , had sweating. He states that since yesterday morning he was not feeling well soon after he ate his breakfast. He had 4 watery bowel movements and epigastric pain , severe and did not eat anything since yesterday morning due to abdominal pain. He suffers from anxiety , too . Had Echo done 2016 which shows EF of 45 % , dilatation of the left ventricle in the systole. Carotid doppler show 50-69 stenosis b/l carotid arteries. Onset of Symptoms: Reports: Today, Sudden abdominal Pain Score (Numeric/FACES): 9 - Related Data Allergies/Adverse Reactions: Allergies Allergy/AdvReac Type Severity Reaction Status Date / Time No Known Allergies Allergy Verified 08/03/17 10:31 Home Medications: Home Meds Carvedilol 3.125 mg PO BID 09/22/16 [History] Isosorbide Mononitrate [Imdur] 30 mg PO DAILY 09/22/16 [History] Pantoprazole [ProTONIX] 40 mg PO ACBREAKFAST 09/22/16 [History] Pravastatin [Pravachol] 40 mg PO DAILY 09/22/16 [History] Nitroglycerin [Nitrostat] 0.4 mg SL Q5M PRN 11/22/16 [History] Clopidogrel [Plavix] 75 mg PO DAILY 04/19/17 [History] Nabumetone 500 mg PO BIDMEALS PRN 04/19/17 [History] PARoxetine [Paxil] 10 mg PO DAILY 04/19/17 [History] traMADol HCl [Tramadol HCl] 50 mg PO TID PRN 04/19/17 [History] Aspirin [Halfprin] 81 mg PO DAILY #0 tab.ec 04/20/17 [Rx] oxyCODONE HCl/Acetaminophen [oxyCODONE-Acetaminophen 5-325] 1 tab PO Q6H PRN 7 Days #28 tablet 05/04/17 [Rx] Past Medical History - Past Health History Medical/Surgical History: Denies Medical/Surgical History HEENT History: Reports: None Cardiovascular History: Reports: High Cholesterol, Hypertension, [place], Stents Respiratory History: Reports: None Gastrointestinal History: Reports: None Genitourinary History: Reports: None Musculoskeletal History: Reports: None Neurological History: Reports: None Psychiatric History: Reports: None Endocrine/Metabolic History: Reports: None Hematologic History: Reports: None Immunologic History: Reports: None Oncologic (Cancer) History: Reports: None Dermatologic History: Reports: None - Infectious Disease History Infectious Disease History: Reports: None - Past Surgical History Head Surgeries/Procedures: Reports: None HEENT Surgical History: Reports: Tonsillectomy, Other (See Below) Other HEENT Surgeries/Procedures: Dental extraction. Throat Surgery Cardiovascular Surgical History: Reports: Coronary Artery Stent Respiratory Surgical History: Reports: None Social & Family History - Family History Family Medical History: Noncontributory Cardiac: Reports: [place] Respiratory: Reports: None Endocrine/Metabolic: Reports: Diabetes, Type I Hematologic: Reports: None Oncologic: Reports: Other (See Below) Other Oncologic Family History: Father side has cancer but patient doesn't know exactly what kind of CA - Tobacco Use Smoking Status *Q: Never Smoker Years of Tobacco use: 1 Used Tobacco, but Quit: Yes Month/Year Tobacco Last Used: 2009 Second Hand Smoke Exposure: No - Caffeine Use Caffeine Use: Reports: Coffee, Soda Caffeine Use Comment: daily - Alcohol Use Days Per Week of Alcohol Use: 3 Number of Drinks Per Day: 1 Total Drinks Per Week: 3 - Recreational Drug Use Recreational Drug Use: No - Living Situation & Occupation Living situation: Reports: Occupation: Retired H&P Review of Systems - Review of Systems: Review Of Systems: See Below General: Reports: No Symptoms HEENT: Reports: No Symptoms Pulmonary: Reports: No Symptoms Cardiovascular: Reports: Syncope Gastrointestinal: Reports: Abdominal Pain, Diarrhea, Nausea Genitourinary: Reports: No Symptoms Musculoskeletal: Reports: No Symptoms Skin: Reports: No Symptoms Psychiatric: Reports: No Symptoms Neurological: Reports: No Symptoms Hematologic/Lymphatic: Reports: No Symptoms Immunologic: Reports: No Symptoms Exam - Exam Exam: See Below - Vital Signs Vital Signs: Last Vital Signs Temp 98.2 F 08/03/17 20:00 Pulse 68 08/03/17 21:48 Resp 19 08/03/17 20:00 BP 124/74 08/03/17 21:48 Pulse Ox 94 L 08/03/17 20:00 Orthostatic Blood Pressure [ 121/86 Standing] Orthostatic Blood Pressure [ 140/93 Sitting] Orthostatic Blood Pressure [ 122/81 Supine] Weight: 141 lb 1.533 oz - Exam General: Alert, Oriented HEENT: Conjunctiva Clear, EACs Clear, EOMI, Pupils Reactive. No: Hearing Intact Neck: Supple, Trachea Midline Lungs: Clear to Auscultation, Normal Respiratory Effort Cardiovascular: Regular Rate, Regular Rhythm, Normal S1, Normal S2 GI/Abdominal Exam: Normal Bowel Sounds, Soft, Guarding, Tender. No: Distended, Rigid, Rebound, Hernia (Male) Exam: No Hernia Back Exam: Normal Inspection Extremities: Normal Inspection Skin: Warm, Dry, Intact Neuro Extensive - Mental Status: Alert, Oriented x3 - Patient Data Lab Results Last 24 hrs: Laboratory Results - last 24 hr 08/03/17 08/03/17 08/03/17 Range/Units 10:39 10:39 10:39 WBC 6.95 (4.0-11.0) K/uL RBC 4.53 (4.50-5.90) M/uL Hgb 13.1 (13.0-17.0) g/dL Hct 39.2 (38.0-50.0) % MCV 86.5 (80.0-98.0) fL MCH 28.9 (27.0-32.0) pg MCHC 33.4 (31.0-37.0) g/dL RDW Std Deviation 48.5 (28.0-62.0) fl RDW Coeff of Ethan 15 (11.0-15.0) % Plt Count 265 (150-400) K/uL MPV 9.70 (7.40-12.00) fL Neut % (Auto) 59.0 (48.0-80.0) % Lymph % (Auto) 27.5 (16.0-40.0) % [place] % (Auto) 10.6 (0.0-15.0) % Eos % (Auto) 2.6 (0.0-7.0) % Baso % (Auto) 0.3 (0.0-1.5) % Neut # (Auto) 4.1 (1.4-5.7) K/uL Lymph # (Auto) 1.9 (0.6-2.4) K/uL [place] # (Auto) 0.7 (0.0-0.8) K/uL Eos # (Auto) 0.2 (0.0-0.7) K/uL Baso # (Auto) 0.0 (0.0-0.1) K/uL Nucleated RBC % 0.0 /100WBC Nucleated RBCs # 0 K/uL Sodium 142 (136-148) mmol/L Potassium 3.4 L (3.5-5.1) mmol/L Chloride 106 (98-107) mmol/L Carbon Dioxide 23.9 (21.0-32.0) mmol/L BUN 19 H (7.0-18.0) mg/dL Creatinine 0.8 (0.8-1.3) mg/dL Est Cr Clr Drug Dosing 69.15 mL/min Estimated GFR (MDRD) > 60.0 ml/min Glucose 171 H (74-106) mg/dL Calcium 9.5 (8.5-10.1) mg/dL Total Bilirubin 0.7 (0.2-1.0) mg/dL AST 20 (15-37) IU/L ALT 15 (14-63) IU/L Alkaline Phosphatase 65 (46-116) U/L Troponin I < 0.050 (0.000-0.056) ng/mL Total Protein 7.9 (6.4-8.2) g/dL Albumin 4.2 (3.4-5.0) g/dL Globulin 3.7 H (2.0-3.5) g/dL Albumin/Globulin Ratio 1.1 L (1.3-2.8) Amylase 54 (25-115) U/L Lipase 86 (73-393) U/L H. pylori IgG Antibody (NEG) 08/03/17 08/03/17 08/03/17 Range/Units 10:39 17:23 23:00 WBC 4.44 (4.0-11.0) K/uL RBC 3.82 L (4.50-5.90) M/uL Hgb 10.9 L (13.0-17.0) g/dL Hct 33.0 L (38.0-50.0) % MCV 86.4 (80.0-98.0) fL MCH 28.5 (27.0-32.0) pg MCHC 33.0 (31.0-37.0) g/dL RDW Std Deviation 48.5 (28.0-62.0) fl RDW Coeff of Ethan 15 (11.0-15.0) % Plt Count 197 (150-400) K/uL MPV 9.30 (7.40-12.00) fL Neut % (Auto) 53.1 (48.0-80.0) % Lymph % (Auto) 32.9 (16.0-40.0) % [place] % (Auto) 10.4 (0.0-15.0) % Eos % (Auto) 3.4 (0.0-7.0) % Baso % (Auto) 0.2 (0.0-1.5) % Neut # (Auto) 2.4 (1.4-5.7) K/uL Lymph # (Auto) 1.5 (0.6-2.4) K/uL [place] # (Auto) 0.5 (0.0-0.8) K/uL Eos # (Auto) 0.2 (0.0-0.7) K/uL Baso # (Auto) 0.0 (0.0-0.1) K/uL Nucleated RBC % 0.0 /100WBC Nucleated RBCs # 0 K/uL Sodium (136-148) mmol/L Potassium (3.5-5.1) mmol/L Chloride (98-107) mmol/L Carbon Dioxide (21.0-32.0) mmol/L BUN (7.0-18.0) mg/dL Creatinine (0.8-1.3) mg/dL Est Cr Clr Drug Dosing mL/min Estimated GFR (MDRD) ml/min Glucose (74-106) mg/dL Calcium (8.5-10.1) mg/dL Total Bilirubin (0.2-1.0) mg/dL AST (15-37) IU/L ALT (14-63) IU/L Alkaline Phosphatase (46-116) U/L Troponin I < 0.050 (0.000-0.056) ng/mL Total Protein (6.4-8.2) g/dL Albumin (3.4-5.0) g/dL Globulin (2.0-3.5) g/dL Albumin/Globulin Ratio (1.3-2.8) Amylase (25-115) U/L Lipase (73-393) U/L H. pylori IgG Antibody NEGATIVE (NEG) Result Diagrams: 08/04/17 05:08 08/03/17 10:39 EKG INTERPRETATION EKG Date: 08/03/17 - Problem List (1) Epigastric abdominal pain of unknown etiology SNOMED Code(s): 701298611, 411641061 ICD Code: R10.13 - EPIGASTRIC PAIN Status: Acute Current Visit: Yes (2) Syncope SNOMED Code(s): 437427014 ICD Code: R55 - SYNCOPE AND COLLAPSE Status: Acute Current Visit: Yes Qualifiers: Syncope type: unspecified Qualified Code(s): R55 - Syncope and collapse (3) Anxiety SNOMED Code(s): 62539898 ICD Code: F41.9 - ANXIETY DISORDER, UNSPECIFIED Status: Acute Current Visit: Yes Problem List Initiated/Reviewed/Updated: Yes Orders Last 24hrs: Active Orders 24 hr Category Date Time Status Admission Status [Patient Status] [ADT] Stat ADT 08/03/17 11:26 Active Patient Status [ADT] Routine ADT 08/03/17 14:14 Active Communication Order [RC] PER UNIT ROUTINE Care 08/03/17 20:25 Active Fecal Occult Blood Collection [RC] ASDIRECTED Care 08/03/17 20:25 Active Notify Provider Consults [RC] ASDIRECTED Care 08/03/17 14:30 Active Notify Provider Consults [RC] ASDIRECTED Care 08/03/17 20:22 Active Oxygen Therapy [RC] PRN Care 08/03/17 14:14 Active Pulse Oximetry [RC] CONTINUOUS Care 08/03/17 14:17 Active Telemetry Monitoring [Cardiac Monitoring] [RC] Q8H Care 08/03/17 14:23 Active Up ad Violeta [RC] ASDIRECTED Care 08/03/17 14:14 Active Vital Signs [RC] Q4H Care 08/03/17 14:14 Active Consult to Physician [CONS] Routine Cons 08/03/17 14:29 Active Consult to Physician [CONS] Urgent Cons 08/03/17 20:17 Active NPO Now [Nothing per Oral Now Diet] [DIET] Diet 08/04/17 Breakfast Active Abdomen Pelvis w wo Cont [CT] Stat Exams 08/03/17 15:00 Taken CBC WITH AUTO DIFF [HEME] DAILY Lab 08/04/17 05:11 Ordered CBC WITH AUTO DIFF [HEME] DAILY Lab 08/05/17 05:11 Ordered COMPREHENSIVE METABOLIC PN,CMP [CHEM] DAILY Lab 08/04/17 05:11 Ordered COMPREHENSIVE METABOLIC PN,CMP [CHEM] DAILY Lab 08/05/17 05:11 Ordered TROPONIN I [CHEM] Q6H Lab 08/03/17 23:00 Received Acetaminophen [Tylenol] Med 08/03/17 14:14 Active 650 mg PO Q4H PRN Acetaminophen/oxyCODONE [Percocet 325-5 MG] Med 08/03/17 14:21 Active 1 tab PO Q6H PRN Alum Hydrox/Mag Hydrox/Simeth [Mag-Al Plus] Med 08/03/17 15:01 Active 30 ml PO Q4H PRN Aspirin [Halfprin] Med 08/04/17 09:00 Active 81 mg PO DAILY Carvedilol [Coreg] Med 08/03/17 21:00 Active 3.125 mg PO BID Clopidogrel [Plavix] Med 08/04/17 09:00 Active 75 mg PO DAILY Isosorbide Mononitrate [Imdur] Med 08/04/17 09:00 Active 30 mg PO DAILY Morphine Med 08/03/17 14:58 Active 2 mg IVPUSH Q2H PRN Nitroglycerin [Nitrostat] Med 08/03/17 14:21 Active 0.4 mg SL Q5M PRN PARoxetine [Paxil] Med 08/04/17 09:00 Active 10 mg PO DAILY Pantoprazole [ProTONIX IV] 80 mg Med 08/03/17 20:30 Active Sodium Chloride 0.9% [Normal Saline] 100 ml IV Q10H Pravastatin [Pravachol] Med 08/03/17 21:00 Active 40 mg PO BEDTIME Sodium Chloride 0.9% [Normal Saline] 1,000 ml Med 08/03/17 17:45 Active IV ASDIRECTED Sodium Chloride 0.9% [Saline Flush] Med 08/03/17 14:14 Active 10 ml FLUSH ASDIRECTED PRN Sodium Chloride 0.9% [Saline Flush] Med 08/03/17 14:14 Active 2.5 ml FLUSH ASDIRECTED PRN traMADol [Ultram] Med 08/03/17 14:21 Active 50 mg PO TID PRN Peripheral IV Insertion Adult [OM.PC] Routine Oth 08/03/17 14:14 Ordered Saline Lock Insert [OM.PC] Routine Oth 08/03/17 14:14 Ordered Sequential Compression Device [OM.PC] Per Unit Routine Oth 08/03/17 14:17 Ordered Resuscitation Status Routine Resus Stat 08/03/17 14:14 Ordered Medication Orders Acetaminophen (Tylenol) 650 mg PO Q4H PRN PRN Reason: Pain (Mild 1-3)/fever Al Hydroxide/Mg Hydroxide (Mag-Al Plus) 30 ml PO Q4H PRN PRN Reason: Heartburn Aspirin (Halfprin) 81 mg PO DAILY [facility] Carvedilol (Coreg) 3.125 mg PO BID [facility] Last Admin: 08/03/17 21:48 Dose: 3.125 mg Clopidogrel Bisulfate (Plavix) 75 mg PO DAILY [facility] Sodium Chloride (Normal Saline) 1,000 mls @ 100 mls/hr IV ASDIRECTED [facility] Last Admin: 08/03/17 18:25 Dose: 100 mls/hr Pantoprazole Sodium 80 mg/ (Sodium Chloride) 100 mls @ 10 mls/hr IV Q10H [facility] Last Admin: 08/03/17 21:52 Dose: 10 mls/hr Isosorbide Mononitrate (Imdur) 30 mg PO DAILY [facility] Morphine Sulfate (Morphine) 2 mg IVPUSH Q2H PRN PRN Reason: Pain Last Admin: 08/03/17 19:29 Dose: 2 mg Admin: 08/03/17 15:28 Dose: 2 mg Nitroglycerin (Nitrostat) 0.4 mg SL Q5M PRN PRN Reason: Chest Pain Oxycodone/Acetaminophen (Percocet 325-5 Mg) 1 tab PO Q6H PRN PRN Reason: Pain Paroxetine HCl (Paxil) 10 mg PO DAILY [facility] Pravastatin Sodium (Pravachol) 40 mg PO BEDTIME [facility] Last Admin: 08/03/17 21:49 Dose: 40 mg Sodium Chloride (Saline Flush) 10 ml FLUSH ASDIRECTED PRN PRN Reason: Keep Vein Open Sodium Chloride (Saline Flush) 2.5 ml FLUSH ASDIRECTED PRN PRN Reason: Keep Vein Open Tramadol HCl (Ultram) 50 mg PO TID PRN PRN Reason: Pain Assessment/Plan Comment:: syncope twice in the lab - likely vasovagal due to anxiety and patient not eating , epigastric pain- will admit patient to telemetry, f/up 3 sets of cardiac enzymes epigastric pain - will order maalox 30 ml po q 6 h , CT abdomen with and without contrast, morphine 2 mg ivp q2 h for pain , prn, protonix 40 mg ivp diarrhea- resolved depression and anxiety- continue paroxetine home dose Cad - will continue patient with isosorbid 30 mg po daily , aspirin 81 mg po daily , plavix 75 mg po daily, coreg 3.125 mg po BID
[2017-08-04] MEDS: Morphine 4 MG/ML Syringe IVPUSH PRN ×2 (02:55→08:13)
[2017-08-04] MEDS: Sodium Chloride 0.9% 1,000 ML IV SCH (04:40)
[2017-08-04 05:57] LABS: CHLORIDE,CL 110 mmol/L (98-107); SODIUM,NA 145 mmol/L (136-148)
[2017-08-04] MEDS ORDERED: Pantoprazole 40 MG Tab.CR PO SCH (07:30)
[2017-08-04] MEDS: Pantoprazole 80 MG in Sodium Chloride 0.9% 100 ML IV SCH (08:12)
[2017-08-04] MEDS: Carvedilol 3.125 MG Tab PO SCH (08:26)
[2017-08-04] MEDS ORDERED: PARoxetine 20 MG Tab PO SCH (09:00)
[2017-08-04] MEDS ORDERED: Aspirin 81 MG Tab.EC PO SCH (09:00)
[2017-08-04] MEDS ORDERED: Clopidogrel 75 MG Tab PO SCH (09:00)
[2017-08-04] MEDS ORDERED: Isosorbide Mononitrate 30 MG Tab.ER PO SCH (09:00)
--- NOTE | 2017-08-04 09:13 | CT ---
EXAM DATE: 08/03/17 PATIENT'S AGE: 72 Patient: BERNARD BORREGO Facility: [place], [place] Site . Site : 1945 Study: CT Abdomen/Pelvis [id number]/18/2018 4:39:59 PM Ordering Physician: Damaris Patel Final Report: HISTORY: Severe epigastric abdominal pain. TECHNIQUE: The abdomen and pelvis were scanned using helical technique at 3 mm after 80 cc of [id number]. Sagittal and coronal reconstructions were performed. FINDINGS: Lung bases: A small amount of dependent atelectasis in the posterior lung bases. Liver and gallbladder: The liver parenchyma is homogeneous. No calcified gallstones. Spleen, pancreas and adrenal glands: The spleen is homogeneous and normal size. Surgical clip is seen in the splenic hilum. Pancreatic parenchyma is homogeneous. The adrenal glands are normal. Kidneys and bladder: Symmetric nephrograms. No calcified urolithiasis or hydronephrosis. Bladder is mildly distended and within normal limits. Retroperitoneum and lymph nodes: There is some calcification wall of aorta without evidence of aneurysm. Trace calcification seen at the origin of the superior mesenteric and renal arteries. No pathologic periaortic lymphadenopathy is seen. GI tract: The stomach is decompressed which results in diffuse wall thickening. No dilated small bowel loops are seen. There is a short normal appendix. Stool and gas are seen throughout the colon. No diverticulitis. There is no free air in the abdomen. There is trace free fluid the pelvis. Pelvic organs: Prostate is normal. Abdomen wall: A small amount of fat extends down the left inguinal canal without inflammatory change. Osseous structures: Degenerative changes seen within the hips. There is lucency and coarsening of the trabecular markings in the sacrum and the medial right iliac bone suggesting Paget`s disease. Degenerative changes are seen within the lower lumbar spine. IMPRESSION: 1. Lucency in coarsening of the trabecular markings in the sacrum and medial right iliac bone suggesting Paget`s disease. 2. No abnormality in the abdomen or pelvis to account for the superior epigastric abdominal pain. Dictated by Charlee Daniel MD @ 08/03/2017 5:17:15 PM Please note that all CT scans at this facility use dose modulation, iterative reconstruction, and/or weight-based dosing when appropriate to reduce radiation dose to as low as reasonably achievable. Dictated by: Charlee Daniel MD @ 08/03/2017 17:18:02 (Electronic Signature) Report Signed by Proxy. [facility]
--- NOTE | 2017-08-04 09:34 | PCM.CONS ---
H&P History of Present Illness - General Date of Service: 08/04/17 Admit Problem/Dx: Admission Diagnosis/Problem Admission Diagnosis/Problem Syncope, abdominal pain Source of Information: Patient History Limitations: Reports: No Limitations - History of Present Illness Initial Comments - Free Text/Narative: Patient is a 72M who presented to the ED with syncopal episodes. He was admitted July 26 for similar issues. Cardiac workup in house was negative. He told the medicine team that he was having severe epigastric pain. He also complained of dark, tarry diarrhea for two days before. A CT of the abdomen pelvis showed no acute abdominal process. He has never had an EGD. His last colonoscopy was "a long time ago." He denies any family history of colon or any other kind of cancer. An H pylori antigen test was negative. He was made nPO, given IVF, and started on IV protonix. He states that his abdominal pain is better this morning. abdominal Pain Score (Numeric/FACES): 9 - Related Data Allergies/Adverse Reactions: Allergies Allergy/AdvReac Type Severity Reaction Status Date / Time No Known Allergies Allergy Verified 08/03/17 10:31 Home Medications: Home Meds Carvedilol 3.125 mg PO BID 09/22/16 [History] Isosorbide Mononitrate [Imdur] 30 mg PO DAILY 09/22/16 [History] Pantoprazole [ProTONIX] 40 mg PO ACBREAKFAST 09/22/16 [History] Pravastatin [Pravachol] 40 mg PO DAILY 09/22/16 [History] Nitroglycerin [Nitrostat] 0.4 mg SL Q5M PRN 11/22/16 [History] Clopidogrel [Plavix] 75 mg PO DAILY 04/19/17 [History] Nabumetone 500 mg PO BIDMEALS PRN 04/19/17 [History] PARoxetine [Paxil] 10 mg PO DAILY 04/19/17 [History] traMADol HCl [Tramadol HCl] 50 mg PO TID PRN 04/19/17 [History] Aspirin [Halfprin] 81 mg PO DAILY #0 tab.ec 04/20/17 [Rx] oxyCODONE HCl/Acetaminophen [oxyCODONE-Acetaminophen 5-325] 1 tab PO Q6H PRN 7 Days #28 tablet 05/04/17 [Rx] Past Medical History - Past Health History Medical/Surgical History: Denies Medical/Surgical History HEENT History: Reports: None Cardiovascular History: Reports: High Cholesterol, Hypertension, DC, Stents Respiratory History: Reports: None Gastrointestinal History: Reports: None Genitourinary History: Reports: None Musculoskeletal History: Reports: None Neurological History: Reports: None Psychiatric History: Reports: None Endocrine/Metabolic History: Reports: None Hematologic History: Reports: None Immunologic History: Reports: None Oncologic (Cancer) History: Reports: None Dermatologic History: Reports: None - Infectious Disease History Infectious Disease History: Reports: None - Past Surgical History Head Surgeries/Procedures: Reports: None HEENT Surgical History: Reports: Tonsillectomy, Other (See Below) Other HEENT Surgeries/Procedures: Dental extraction. Throat Surgery Cardiovascular Surgical History: Reports: Coronary Artery Stent Respiratory Surgical History: Reports: None Social & Family History - Family History Family Medical History: Noncontributory Cardiac: Reports: DC Respiratory: Reports: None Endocrine/Metabolic: Reports: Diabetes, Type I Hematologic: Reports: None Oncologic: Reports: Other (See Below) Other Oncologic Family History: Father side has cancer but patient doesn't know exactly what kind of CA - Tobacco Use Smoking Status *Q: Never Smoker Years of Tobacco use: 1 Used Tobacco, but Quit: Yes Month/Year Tobacco Last Used: 2009 Second Hand Smoke Exposure: No - Caffeine Use Caffeine Use: Reports: Coffee, Soda Caffeine Use Comment: daily - Alcohol Use Days Per Week of Alcohol Use: 3 Number of Drinks Per Day: 1 Total Drinks Per Week: 3 - Recreational Drug Use Recreational Drug Use: No - Living Situation & Occupation Living situation: Reports: Occupation: Retired H&P Review of Systems - Review of Systems: Review Of Systems: ROS reveals no pertinent complaints other than HPI. Exam - Exam Exam: See Below - Vital Signs Vital Signs: Last Vital Signs Temp 36.6 C 08/04/17 04:00 Pulse 70 08/04/17 08:26 Resp 18 08/04/17 04:00 BP 133/79 08/04/17 08:26 Pulse Ox 96 08/04/17 04:00 Orthostatic Blood Pressure [ 121/86 Standing] Orthostatic Blood Pressure [ 140/93 Sitting] Orthostatic Blood Pressure [ 122/81 Supine] Weight: 64 kg - Exam General: Alert, Oriented HEENT: Conjunctiva Clear, EACs Clear, Mucosa Moist & [address], Pupils Equal, Pupils Reactive Neck: Supple Lungs: Clear to Auscultation, Normal Respiratory Effort Cardiovascular: Regular Rate, Regular Rhythm GI/Abdominal Exam: Soft, Non-Tender (with distraction ), No Distention, No Mass Back Exam: Normal Inspection, Full Range of Motion Extremities: Normal Inspection, Normal Range of Motion Neuro Extensive - Mental Status: Alert, Oriented x3, Normal Mood/Affect - Patient Data Lab Results Last 24 hrs: Laboratory Results - last 24 hr 08/03/17 08/03/17 08/03/17 Range/Units 10:39 10:39 10:39 WBC 6.95 (4.0-11.0) K/uL RBC 4.53 (4.50-5.90) M/uL Hgb 13.1 (13.0-17.0) g/dL Hct 39.2 (38.0-50.0) % MCV 86.5 (80.0-98.0) fL MCH 28.9 (27.0-32.0) pg MCHC 33.4 (31.0-37.0) g/dL RDW Std Deviation 48.5 (28.0-62.0) fl RDW Coeff of Ethan 15 (11.0-15.0) % Plt Count 265 (150-400) K/uL MPV 9.70 (7.40-12.00) fL Neut % (Auto) 59.0 (48.0-80.0) % Lymph % (Auto) 27.5 (16.0-40.0) % Graves % (Auto) 10.6 (0.0-15.0) % Eos % (Auto) 2.6 (0.0-7.0) % Baso % (Auto) 0.3 (0.0-1.5) % Neut # (Auto) 4.1 (1.4-5.7) K/uL Lymph # (Auto) 1.9 (0.6-2.4) K/uL Graves # (Auto) 0.7 (0.0-0.8) K/uL Eos # (Auto) 0.2 (0.0-0.7) K/uL Baso # (Auto) 0.0 (0.0-0.1) K/uL Nucleated RBC % 0.0 /100WBC Nucleated RBCs # 0 K/uL Sodium 142 (136-148) mmol/L Potassium 3.4 L (3.5-5.1) mmol/L Chloride 106 (98-107) mmol/L Carbon Dioxide 23.9 (21.0-32.0) mmol/L BUN 19 H (7.0-18.0) mg/dL Creatinine 0.8 (0.8-1.3) mg/dL Est Cr Clr Drug Dosing 69.15 mL/min Estimated GFR (MDRD) > 60.0 ml/min Glucose 171 H (74-106) mg/dL POC Glucose (60-110) mg/dL Calcium 9.5 (8.5-10.1) mg/dL Total Bilirubin 0.7 (0.2-1.0) mg/dL AST 20 (15-37) IU/L ALT 15 (14-63) IU/L Alkaline Phosphatase 65 (46-116) U/L Troponin I < 0.050 (0.000-0.056) ng/mL Total Protein 7.9 (6.4-8.2) g/dL Albumin 4.2 (3.4-5.0) g/dL Globulin 3.7 H (2.0-3.5) g/dL Albumin/Globulin Ratio 1.1 L (1.3-2.8) Amylase 54 (25-115) U/L Lipase 86 (73-393) U/L H. pylori IgG Antibody (NEG) 08/03/17 08/03/17 08/03/17 Range/Units 10:39 17:23 23:00 WBC (4.0-11.0) K/uL RBC (4.50-5.90) M/uL Hgb (13.0-17.0) g/dL Hct (38.0-50.0) % MCV (80.0-98.0) fL MCH (27.0-32.0) pg MCHC (31.0-37.0) g/dL RDW Std Deviation (28.0-62.0) fl RDW Coeff of Ethan (11.0-15.0) % Plt Count (150-400) K/uL MPV (7.40-12.00) fL Neut % (Auto) (48.0-80.0) % Lymph % (Auto) (16.0-40.0) % Graves % (Auto) (0.0-15.0) % Eos % (Auto) (0.0-7.0) % Baso % (Auto) (0.0-1.5) % Neut # (Auto) (1.4-5.7) K/uL Lymph # (Auto) (0.6-2.4) K/uL Graves # (Auto) (0.0-0.8) K/uL Eos # (Auto) (0.0-0.7) K/uL Baso # (Auto) (0.0-0.1) K/uL Nucleated RBC % /100WBC Nucleated RBCs # K/uL Sodium (136-148) mmol/L Potassium (3.5-5.1) mmol/L Chloride (98-107) mmol/L Carbon Dioxide (21.0-32.0) mmol/L BUN (7.0-18.0) mg/dL Creatinine (0.8-1.3) mg/dL Est Cr Clr Drug Dosing mL/min Estimated GFR (MDRD) ml/min Glucose (74-106) mg/dL POC Glucose (60-110) mg/dL Calcium (8.5-10.1) mg/dL Total Bilirubin (0.2-1.0) mg/dL AST (15-37) IU/L ALT (14-63) IU/L Alkaline Phosphatase (46-116) U/L Troponin I < 0.050 < 0.050 (0.000-0.056) ng/mL Total Protein (6.4-8.2) g/dL Albumin (3.4-5.0) g/dL Globulin (2.0-3.5) g/dL Albumin/Globulin Ratio (1.3-2.8) Amylase (25-115) U/L Lipase (73-393) U/L H. pylori IgG Antibody NEGATIVE (NEG) 08/03/17 08/04/17 08/04/17 Range/Units 23:00 05:08 05:08 WBC 4.44 4.13 (4.0-11.0) K/uL RBC 3.82 L 3.84 L (4.50-5.90) M/uL Hgb 10.9 L 10.8 L (13.0-17.0) g/dL Hct 33.0 L 33.4 L (38.0-50.0) % MCV 86.4 87.0 (80.0-98.0) fL MCH 28.5 28.1 (27.0-32.0) pg MCHC 33.0 32.3 (31.0-37.0) g/dL RDW Std Deviation 48.5 49.3 (28.0-62.0) fl RDW Coeff of Ethan 15 15 (11.0-15.0) % Plt Count 197 186 (150-400) K/uL MPV 9.30 9.50 (7.40-12.00) fL Neut % (Auto) 53.1 53.0 (48.0-80.0) % Lymph % (Auto) 32.9 29.8 (16.0-40.0) % Graves % (Auto) 10.4 13.6 (0.0-15.0) % Eos % (Auto) 3.4 3.4 (0.0-7.0) % Baso % (Auto) 0.2 0.2 (0.0-1.5) % Neut # (Auto) 2.4 2.2 (1.4-5.7) K/uL Lymph # (Auto) 1.5 1.2 (0.6-2.4) K/uL Graves # (Auto) 0.5 0.6 (0.0-0.8) K/uL Eos # (Auto) 0.2 0.1 (0.0-0.7) K/uL Baso # (Auto) 0.0 0.0 (0.0-0.1) K/uL Nucleated RBC % 0.0 0.0 /100WBC Nucleated RBCs # 0 0 K/uL Sodium 145 (136-148) mmol/L Potassium 3.2 L (3.5-5.1) mmol/L Chloride 110 H (98-107) mmol/L Carbon Dioxide 26.9 (21.0-32.0) mmol/L BUN 14 (7.0-18.0) mg/dL Creatinine 0.7 L (0.8-1.3) mg/dL Est Cr Clr Drug Dosing 88.89 mL/min Estimated GFR (MDRD) > 60.0 ml/min Glucose 105 (74-106) mg/dL POC Glucose (60-110) mg/dL Calcium 8.2 L (8.5-10.1) mg/dL Total Bilirubin 0.5 (0.2-1.0) mg/dL AST 12 L (15-37) IU/L ALT 11 L (14-63) IU/L Alkaline Phosphatase 49 (46-116) U/L Troponin I (0.000-0.056) ng/mL Total Protein 6.1 L (6.4-8.2) g/dL Albumin 3.2 L (3.4-5.0) g/dL Globulin 2.9 (2.0-3.5) g/dL Albumin/Globulin Ratio 1.1 L (1.3-2.8) Amylase (25-115) U/L Lipase (73-393) U/L H. pylori IgG Antibody (NEG) 08/04/17 Range/Units 05:31 WBC (4.0-11.0) K/uL RBC (4.50-5.90) M/uL Hgb (13.0-17.0) g/dL Hct (38.0-50.0) % MCV (80.0-98.0) fL MCH (27.0-32.0) pg MCHC (31.0-37.0) g/dL RDW Std Deviation (28.0-62.0) fl RDW Coeff of Ethan (11.0-15.0) % Plt Count (150-400) K/uL MPV (7.40-12.00) fL Neut % (Auto) (48.0-80.0) % Lymph % (Auto) (16.0-40.0) % Graves % (Auto) (0.0-15.0) % Eos % (Auto) (0.0-7.0) % Baso % (Auto) (0.0-1.5) % Neut # (Auto) (1.4-5.7) K/uL Lymph # (Auto) (0.6-2.4) K/uL Graves # (Auto) (0.0-0.8) K/uL Eos # (Auto) (0.0-0.7) K/uL Baso # (Auto) (0.0-0.1) K/uL Nucleated RBC % /100WBC Nucleated RBCs # K/uL Sodium (136-148) mmol/L Potassium (3.5-5.1) mmol/L Chloride (98-107) mmol/L Carbon Dioxide (21.0-32.0) mmol/L BUN (7.0-18.0) mg/dL Creatinine (0.8-1.3) mg/dL Est Cr Clr Drug Dosing mL/min Estimated GFR (MDRD) ml/min Glucose (74-106) mg/dL POC Glucose 92 (60-110) mg/dL Calcium (8.5-10.1) mg/dL Total Bilirubin (0.2-1.0) mg/dL AST (15-37) IU/L ALT (14-63) IU/L Alkaline Phosphatase (46-116) U/L Troponin I (0.000-0.056) ng/mL Total Protein (6.4-8.2) g/dL Albumin (3.4-5.0) g/dL Globulin (2.0-3.5) g/dL Albumin/Globulin Ratio (1.3-2.8) Amylase (25-115) U/L Lipase (73-393) U/L H. pylori IgG Antibody (NEG) Result Diagrams: 08/04/17 05:08 08/04/17 05:08 Consult PN Assessment/Plan POD#: 1 Procedures: Procedures ASSAY OF AMYLASE (09/22/16) ASSAY OF CK (CPK) (09/22/16) ASSAY OF LIPASE (09/22/16) ASSAY OF MAGNESIUM (11/22/16) ASSAY OF NATRIURETIC PEPTIDE (02/16/17) ASSAY OF TROPONIN QUANT (07/26/17) ASSAY THYROID STIM HORMONE (02/16/17) BLOOD TYPING SEROLOGIC ABO (07/26/17) BLOOD TYPING SEROLOGIC RH(D) (07/26/17) C-REACTIVE PROTEIN (10/01/16) CARDIAC REHAB/MONITOR (05/02/17) CARDIOVASCULAR STRESS TEST (10/13/16) CHEST X-RAY 1 VIEW FRONTAL (01/31/17) CHEST X-RAY 2VW FRONTAL&LATL (02/16/17) COMPLETE CBC AUTOMATED (07/26/17) COMPLETE CBC W/AUTO DIFF WBC (07/26/17) COMPREHEN METABOLIC PANEL (07/26/17) CREATINE MB FRACTION (09/22/16) CT ANGIOGRAPHY HEAD (07/06/17) CT HEAD/BRAIN W/O DYE (04/18/17) DRAIN/INJ JOINT/BURSA W/O US (05/13/17) ELECTROCARDIOGRAM TRACING (05/03/17) EMERGENCY DEPT VISIT (07/26/17) EXTRACRANIAL BILAT STUDY (05/26/17) FIBRIN DEGRADATION QUANT (09/22/16) HOT OR COLD PACKS THERAPY (06/14/17) HT MUSCLE IMAGE SPECT SING (10/29/16) HYDRATE IV INFUSION ADD-ON (07/26/17) LIPID PANEL (10/01/16) MEDICAL NUTRITION INDIV IN (09/22/16) METABOLIC PANEL TOTAL CA (07/26/17) OFFICE/OUTPATIENT VISIT EST (05/13/17) PCV13 VACCINE IM (05/11/17) PROTHROMBIN TIME (07/26/17) PT EVAL LOW COMPLEX 20 MIN (07/26/17) PT EVAL MOD COMPLEX 30 MIN (05/02/17) RBC ANTIBODY SCREEN (07/26/17) RBC SED RATE AUTOMATED (10/01/16) REMOTE 30 DAY ECG REV/REPORT (05/26/17) ROUTINE VENIPUNCTURE (07/26/17) THER/PROPH/DIAG INJ IV PUSH (07/26/17) THER/PROPH/DIAG INJ SC/IM (04/18/17) THERAPEUTIC ACTIVITIES (06/14/17) THERAPEUTIC EXERCISES (06/14/17) TTE W/DOPPLER COMPLETE (02/28/17) TX/PRO/DX INJ NEW DRUG ADDON (07/26/17) TX/PRO/DX INJ SAME DRUG ORTHOPAEDIC TECHNOLOGIST (11/22/16) URINALYSIS AUTO W/SCOPE (02/16/17) X-RAY EXAM CHEST 1 VIEW (05/03/17) X-RAY EXAM CHEST 2 VIEWS (07/26/17) X-RAY EXAM HIP UNI 2-3 VIEWS (04/18/17) X-RAY EXAM OF HUMERUS (05/03/17) X-RAY EXAM OF SHOULDER (05/13/17) X-RAY EXAM OF SHOULDER (05/03/17) X-RAY EXAM RIBS UNI 2 VIEWS (09/22/16) (1) Epigastric abdominal pain SNOMED Code(s): 84834359 Code(s): R10.13 - EPIGASTRIC PAIN Current Visit: Yes Problem List Initiated/Reviewed/Updated: Yes Plan: The patients hemoglobin did drop after admission but is around 10 today. He and I discussed the role of EGD in diagnosing peptic ulcer disease. We discussed the procedure, expected suha-operative course, and risks including bleeding and perforation. I discussed the case with our anesthesia team given that he was on ASA and clopidogrel before admission and since he had a stent placed in January. We agreed that he is an acceptable candidate given the acuity of the situation. I did explain to the patient that he is at increased risk for heart attack. He verbalized understanding and wishes to proceed.
--- NOTE | 2017-08-04 10:43 | PCM.PN ---
- General Info Date of Service: 08/04/17 - Patient Data Vitals - Most Recent: Last Vital Signs Temp 97.9 F 08/04/17 04:00 Pulse 70 08/04/17 08:26 Resp 18 08/04/17 04:00 BP 133/79 08/04/17 08:26 Pulse Ox 96 08/04/17 04:00 Orthostatic Blood Pressure [ 121/86 Standing] Orthostatic Blood Pressure [ 140/93 Sitting] Orthostatic Blood Pressure [ 122/81 Supine] Weight - Most Recent: 141 lb 1.533 oz I&O - Last 24 Hours: Intake & Output 08/03/17 08/04/17 08/04/17 22:59 06:59 14:59 Intake Total 0 100 Output Total 50 350 Balance -50 -250 Lab Results Last 24 Hours: Laboratory Results - last 24 hr 08/03/17 08/03/17 08/03/17 Range/Units 10:39 10:39 10:39 WBC 6.95 (4.0-11.0) K/uL RBC 4.53 (4.50-5.90) M/uL Hgb 13.1 (13.0-17.0) g/dL Hct 39.2 (38.0-50.0) % MCV 86.5 (80.0-98.0) fL MCH 28.9 (27.0-32.0) pg MCHC 33.4 (31.0-37.0) g/dL RDW Std Deviation 48.5 (28.0-62.0) fl RDW Coeff of Ethan 15 (11.0-15.0) % Plt Count 265 (150-400) K/uL MPV 9.70 (7.40-12.00) fL Neut % (Auto) 59.0 (48.0-80.0) % Lymph % (Auto) 27.5 (16.0-40.0) % [place] % (Auto) 10.6 (0.0-15.0) % Eos % (Auto) 2.6 (0.0-7.0) % Baso % (Auto) 0.3 (0.0-1.5) % Neut # (Auto) 4.1 (1.4-5.7) K/uL Lymph # (Auto) 1.9 (0.6-2.4) K/uL [place] # (Auto) 0.7 (0.0-0.8) K/uL Eos # (Auto) 0.2 (0.0-0.7) K/uL Baso # (Auto) 0.0 (0.0-0.1) K/uL Nucleated RBC % 0.0 /100WBC Nucleated RBCs # 0 K/uL Sodium 142 (136-148) mmol/L Potassium 3.4 L (3.5-5.1) mmol/L Chloride 106 (98-107) mmol/L Carbon Dioxide 23.9 (21.0-32.0) mmol/L BUN 19 H (7.0-18.0) mg/dL Creatinine 0.8 (0.8-1.3) mg/dL Est Cr Clr Drug Dosing 69.15 mL/min Estimated GFR (MDRD) > 60.0 ml/min Glucose 171 H (74-106) mg/dL POC Glucose (60-110) mg/dL Calcium 9.5 (8.5-10.1) mg/dL Total Bilirubin 0.7 (0.2-1.0) mg/dL AST 20 (15-37) IU/L ALT 15 (14-63) IU/L Alkaline Phosphatase 65 (46-116) U/L Troponin I < 0.050 (0.000-0.056) ng/mL Total Protein 7.9 (6.4-8.2) g/dL Albumin 4.2 (3.4-5.0) g/dL Globulin 3.7 H (2.0-3.5) g/dL Albumin/Globulin Ratio 1.1 L (1.3-2.8) Amylase 54 (25-115) U/L Lipase 86 (73-393) U/L H. pylori IgG Antibody (NEG) 08/03/17 08/03/17 08/03/17 Range/Units 10:39 17:23 23:00 WBC (4.0-11.0) K/uL RBC (4.50-5.90) M/uL Hgb (13.0-17.0) g/dL Hct (38.0-50.0) % MCV (80.0-98.0) fL MCH (27.0-32.0) pg MCHC (31.0-37.0) g/dL RDW Std Deviation (28.0-62.0) fl RDW Coeff of Ethan (11.0-15.0) % Plt Count (150-400) K/uL MPV (7.40-12.00) fL Neut % (Auto) (48.0-80.0) % Lymph % (Auto) (16.0-40.0) % [place] % (Auto) (0.0-15.0) % Eos % (Auto) (0.0-7.0) % Baso % (Auto) (0.0-1.5) % Neut # (Auto) (1.4-5.7) K/uL Lymph # (Auto) (0.6-2.4) K/uL [place] # (Auto) (0.0-0.8) K/uL Eos # (Auto) (0.0-0.7) K/uL Baso # (Auto) (0.0-0.1) K/uL Nucleated RBC % /100WBC Nucleated RBCs # K/uL Sodium (136-148) mmol/L Potassium (3.5-5.1) mmol/L Chloride (98-107) mmol/L Carbon Dioxide (21.0-32.0) mmol/L BUN (7.0-18.0) mg/dL Creatinine (0.8-1.3) mg/dL Est Cr Clr Drug Dosing mL/min Estimated GFR (MDRD) ml/min Glucose (74-106) mg/dL POC Glucose (60-110) mg/dL Calcium (8.5-10.1) mg/dL Total Bilirubin (0.2-1.0) mg/dL AST (15-37) IU/L ALT (14-63) IU/L Alkaline Phosphatase (46-116) U/L Troponin I < 0.050 < 0.050 (0.000-0.056) ng/mL Total Protein (6.4-8.2) g/dL Albumin (3.4-5.0) g/dL Globulin (2.0-3.5) g/dL Albumin/Globulin Ratio (1.3-2.8) Amylase (25-115) U/L Lipase (73-393) U/L H. pylori IgG Antibody NEGATIVE (NEG) 08/03/17 08/04/17 08/04/17 Range/Units 23:00 05:08 05:08 WBC 4.44 4.13 (4.0-11.0) K/uL RBC 3.82 L 3.84 L (4.50-5.90) M/uL Hgb 10.9 L 10.8 L (13.0-17.0) g/dL Hct 33.0 L 33.4 L (38.0-50.0) % MCV 86.4 87.0 (80.0-98.0) fL MCH 28.5 28.1 (27.0-32.0) pg MCHC 33.0 32.3 (31.0-37.0) g/dL RDW Std Deviation 48.5 49.3 (28.0-62.0) fl RDW Coeff of Ethan 15 15 (11.0-15.0) % Plt Count 197 186 (150-400) K/uL MPV 9.30 9.50 (7.40-12.00) fL Neut % (Auto) 53.1 53.0 (48.0-80.0) % Lymph % (Auto) 32.9 29.8 (16.0-40.0) % [place] % (Auto) 10.4 13.6 (0.0-15.0) % Eos % (Auto) 3.4 3.4 (0.0-7.0) % Baso % (Auto) 0.2 0.2 (0.0-1.5) % Neut # (Auto) 2.4 2.2 (1.4-5.7) K/uL Lymph # (Auto) 1.5 1.2 (0.6-2.4) K/uL [place] # (Auto) 0.5 0.6 (0.0-0.8) K/uL Eos # (Auto) 0.2 0.1 (0.0-0.7) K/uL Baso # (Auto) 0.0 0.0 (0.0-0.1) K/uL Nucleated RBC % 0.0 0.0 /100WBC Nucleated RBCs # 0 0 K/uL Sodium 145 (136-148) mmol/L Potassium 3.2 L (3.5-5.1) mmol/L Chloride 110 H (98-107) mmol/L Carbon Dioxide 26.9 (21.0-32.0) mmol/L BUN 14 (7.0-18.0) mg/dL Creatinine 0.7 L (0.8-1.3) mg/dL Est Cr Clr Drug Dosing 88.89 mL/min Estimated GFR (MDRD) > 60.0 ml/min Glucose 105 (74-106) mg/dL POC Glucose (60-110) mg/dL Calcium 8.2 L (8.5-10.1) mg/dL Total Bilirubin 0.5 (0.2-1.0) mg/dL AST 12 L (15-37) IU/L ALT 11 L (14-63) IU/L Alkaline Phosphatase 49 (46-116) U/L Troponin I (0.000-0.056) ng/mL Total Protein 6.1 L (6.4-8.2) g/dL Albumin 3.2 L (3.4-5.0) g/dL Globulin 2.9 (2.0-3.5) g/dL Albumin/Globulin Ratio 1.1 L (1.3-2.8) Amylase (25-115) U/L Lipase (73-393) U/L H. pylori IgG Antibody (NEG) 08/04/17 Range/Units 05:31 WBC (4.0-11.0) K/uL RBC (4.50-5.90) M/uL Hgb (13.0-17.0) g/dL Hct (38.0-50.0) % MCV (80.0-98.0) fL MCH (27.0-32.0) pg MCHC (31.0-37.0) g/dL RDW Std Deviation (28.0-62.0) fl RDW Coeff of Ethan (11.0-15.0) % Plt Count (150-400) K/uL MPV (7.40-12.00) fL Neut % (Auto) (48.0-80.0) % Lymph % (Auto) (16.0-40.0) % [place] % (Auto) (0.0-15.0) % Eos % (Auto) (0.0-7.0) % Baso % (Auto) (0.0-1.5) % Neut # (Auto) (1.4-5.7) K/uL Lymph # (Auto) (0.6-2.4) K/uL [place] # (Auto) (0.0-0.8) K/uL Eos # (Auto) (0.0-0.7) K/uL Baso # (Auto) (0.0-0.1) K/uL Nucleated RBC % /100WBC Nucleated RBCs # K/uL Sodium (136-148) mmol/L Potassium (3.5-5.1) mmol/L Chloride (98-107) mmol/L Carbon Dioxide (21.0-32.0) mmol/L BUN (7.0-18.0) mg/dL Creatinine (0.8-1.3) mg/dL Est Cr Clr Drug Dosing mL/min Estimated GFR (MDRD) ml/min Glucose (74-106) mg/dL POC Glucose 92 (60-110) mg/dL Calcium (8.5-10.1) mg/dL Total Bilirubin (0.2-1.0) mg/dL AST (15-37) IU/L ALT (14-63) IU/L Alkaline Phosphatase (46-116) U/L Troponin I (0.000-0.056) ng/mL Total Protein (6.4-8.2) g/dL Albumin (3.4-5.0) g/dL Globulin (2.0-3.5) g/dL Albumin/Globulin Ratio (1.3-2.8) Amylase (25-115) U/L Lipase (73-393) U/L H. pylori IgG Antibody (NEG) Med Orders - Current: Current Medications Acetaminophen (Tylenol) 650 mg PO Q4H PRN PRN Reason: Pain (Mild 1-3)/fever Al Hydroxide/Mg Hydroxide (Mag-Al Plus) 30 ml PO Q4H PRN PRN Reason: Heartburn Aspirin (Halfprin) 81 mg PO DAILY [facility] Last Admin: 08/04/17 08:27 Dose: Not Given Carvedilol (Coreg) 3.125 mg PO BID [facility] Last Admin: 08/04/17 08:26 Dose: 3.125 mg Clopidogrel Bisulfate (Plavix) 75 mg PO DAILY [facility] Last Admin: 08/04/17 08:27 Dose: Not Given Sodium Chloride (Normal Saline) 1,000 mls @ 100 mls/hr IV ASDIRECTED [facility] Last Admin: 08/04/17 04:40 Dose: 100 mls/hr Isosorbide Mononitrate (Imdur) 30 mg PO DAILY [facility] Last Admin: 08/04/17 08:25 Dose: 30 mg Morphine Sulfate (Morphine) 2 mg IVPUSH Q2H PRN PRN Reason: Pain Last Admin: 08/04/17 08:13 Dose: 2 mg Nitroglycerin (Nitrostat) 0.4 mg SL Q5M PRN PRN Reason: Chest Pain Oxycodone/Acetaminophen (Percocet 325-5 Mg) 1 tab PO Q6H PRN PRN Reason: Pain Pantoprazole Sodium (Protonix Iv) 40 mg IVPUSH BID [facility] Paroxetine HCl (Paxil) 10 mg PO DAILY [facility] Last Admin: 08/04/17 08:26 Dose: 10 mg Pravastatin Sodium (Pravachol) 40 mg PO BEDTIME [facility] Last Admin: 08/03/17 21:49 Dose: 40 mg Sodium Chloride (Saline Flush) 10 ml FLUSH ASDIRECTED PRN PRN Reason: Keep Vein Open Sodium Chloride (Saline Flush) 2.5 ml FLUSH ASDIRECTED PRN PRN Reason: Keep Vein Open Tramadol HCl (Ultram) 50 mg PO TID PRN PRN Reason: Pain Discontinued Medications Al Hydroxide/Mg Hydroxide 15 (ml/ Lidocaine HCl 5 ml) 0 ml PO ONETIME ONE Stop: 08/03/17 11:20 Last Admin: 08/03/17 11:24 Dose: 20 each Sodium Chloride (Normal Saline) 1,000 mls @ 999 mls/hr IV STAT ONE Stop: 08/03/17 11:29 Last Admin: 08/03/17 10:52 Dose: 999 mls/hr Pantoprazole Sodium 80 mg/ (Sodium Chloride) 100 mls @ 10 mls/hr IV Q10H [facility] Last Admin: 08/04/17 08:12 Dose: 10 mls/hr Pantoprazole Sodium (Protonix) 40 mg PO ACBREAKFAST [facility] Pantoprazole Sodium (Protonix Iv) 40 mg IVPUSH NOW ONE Stop: 08/03/17 15:02 Last Admin: 08/03/17 15:29 Dose: 40 mg - Problem List & Annotations (1) Epigastric abdominal pain of unknown etiology SNOMED Code(s): 653557858, 687433563 Code(s): R10.13 - EPIGASTRIC PAIN Status: Acute Current Visit: Yes (2) Syncope SNOMED Code(s): 831084155 Code(s): R55 - SYNCOPE AND COLLAPSE Status: Acute Current Visit: Yes Qualifiers: Syncope type: unspecified Qualified Code(s): R55 - Syncope and collapse (3) Anxiety SNOMED Code(s): 08164540 Code(s): F41.9 - ANXIETY DISORDER, UNSPECIFIED Status: Acute Current Visit: Yes - Problem List Review Problem List Initiated/Reviewed/Updated: Yes - My Orders Last 24 Hours: My Active Orders 08/03/17 14:14 Patient Status [ADT] Routine Oxygen Therapy [RC] PRN Up ad Violeta [RC] ASDIRECTED Vital Signs [RC] Q4H Acetaminophen [Tylenol] 650 mg PO Q4H PRN Sodium Chloride 0.9% [Saline Flush] 10 ml FLUSH ASDIRECTED PRN Sodium Chloride 0.9% [Saline Flush] 2.5 ml FLUSH ASDIRECTED PRN Peripheral IV Insertion Adult [OM.PC] Routine Saline Lock Insert [OM.PC] Routine Resuscitation Status Routine 08/03/17 14:17 Pulse Oximetry [RC] CONTINUOUS Sequential Compression Device [OM.PC] Per Unit Routine 08/03/17 14:21 Acetaminophen/oxyCODONE [Percocet 325-5 MG] 1 tab PO Q6H PRN Nitroglycerin [Nitrostat] 0.4 mg SL Q5M PRN traMADol [Ultram] 50 mg PO TID PRN 08/03/17 14:23 Telemetry Monitoring [Cardiac Monitoring] [RC] Q8H 08/03/17 14:29 Consult to Physician [CONS] Routine 08/03/17 14:30 Notify Provider Consults [RC] ASDIRECTED 08/03/17 14:58 Morphine 2 mg IVPUSH Q2H PRN 08/03/17 15:01 Alum Hydrox/Mag Hydrox/Simeth [Mag-Al Plus] 30 ml PO Q4H PRN 08/03/17 17:45 Sodium Chloride 0.9% [Normal Saline] 1,000 ml IV ASDIRECTED 08/03/17 20:17 Consult to Physician [CONS] Urgent 08/03/17 20:22 Notify Provider Consults [RC] ASDIRECTED 08/03/17 20:25 Communication Order [RC] PER UNIT ROUTINE Fecal Occult Blood Collection [RC] ASDIRECTED 08/03/17 21:00 Carvedilol [Coreg] 3.125 mg PO BID Pravastatin [Pravachol] 40 mg PO BEDTIME 08/04/17 09:00 Aspirin [Halfprin] 81 mg PO DAILY Clopidogrel [Plavix] 75 mg PO DAILY Isosorbide Mononitrate [Imdur] 30 mg PO DAILY PARoxetine [Paxil] 10 mg PO DAILY 08/04/17 21:00 Pantoprazole [ProTONIX IV] 40 mg IVPUSH BID 08/04/17 Breakfast NPO Now [Nothing per Oral Now Diet] [DIET] 08/05/17 05:11 CBC WITH AUTO DIFF [HEME] DAILY COMPREHENSIVE METABOLIC PN,CMP [CHEM] DAILY - Plan Plan:: syncope twice in the lab - likely vasovagal due to anxiety and patient not eating , epigastric pain- will admit patient to telemetry, f/up 3 sets of cardiac enzymes epigastric pain - will order maalox 30 ml po q 6 h , CT abdomen with and without contrast, morphine 2 mg ivp q2 h for pain , prn, protonix 40 mg ivp diarrhea- resolved depression and anxiety- continue paroxetine home dose Cad - will continue patient with isosorbid 30 mg po daily , aspirin 81 mg po daily , plavix 75 mg po daily, coreg 3.125 mg po BID Patient seen and examined . Discussed patient with resident. Orthostatic vs show a drrop of 19 mmHG with standing , almost orthostasis .(Patient was also given hydration over the night) For EGD today Agree with assessment and plan
[2017-08-04] MEDS ORDERED: Ondansetron 4 MG/2 ML SDV IVPUSH PRN (12:14)
[2017-08-04] MEDS ORDERED: LORazepam 2 MG/ML SDV IVPUSH PRN (12:51)
--- NOTE | 2017-08-04 12:57 | PCM.PREANE ---
Preanesthetic Assessment - Anesthesia/Transfusion/Family Hx Anesthesia History: Prior Anesthesia Without Reaction Family History of Anesthesia Reaction: No Transfusion History: No Prior Transfusion(s) - Review of Systems General: No Symptoms Pulmonary: No Symptoms, Other (MICHAEL) Cardiovascular: Chest Pain, Other (syncope) Gastrointestinal: Abdominal Pain Neurological: No Symptoms Other: Reports: Easy Bleeding, Easy Bruising - Physical Assessment NPO Status Date: 08/03/17 Pulse: 70 O2 Sat by Pulse Oximetry: 96 Respiratory Rate: 17 Blood Pressure: 133/79 Vital Signs: Last Vital Signs Temp 36.6 C 08/04/17 11:54 Pulse 68 08/04/17 11:54 Resp 17 08/04/17 11:54 BP 101/64 08/04/17 11:54 Pulse Ox 96 08/04/17 11:54 Orthostatic Blood Pressure [ 121/86 Standing] Orthostatic Blood Pressure [ 140/93 Sitting] Orthostatic Blood Pressure [ 122/81 Supine] Height: 1.7 m Weight: 64 kg ASA Class: 3 Mental Status: Alert & Oriented x3 Airway Class: Mallampati = 1 ROM/Head Extension: Full Lungs: Clear to Auscultation, Normal Respiratory Effort Cardiovascular: Regular Rate, Regular Rhythm - Lab Values: Laboratory Last Values WBC 4.13 K/uL (4.0-11.0) 08/04/17 05:08 RBC 3.84 M/uL (4.50-5.90) L 08/04/17 05:08 Hgb 10.8 g/dL (13.0-17.0) L 08/04/17 05:08 Hct 33.4 % (38.0-50.0) L 08/04/17 05:08 MCV 87.0 fL (80.0-98.0) 08/04/17 05:08 MCH 28.1 pg (27.0-32.0) 08/04/17 05:08 MCHC 32.3 g/dL (31.0-37.0) 08/04/17 05:08 RDW Std Deviation 49.3 fl (28.0-62.0) 08/04/17 05:08 RDW Coeff of Ethan 15 % (11.0-15.0) 08/04/17 05:08 Plt Count 186 K/uL (150-400) 08/04/17 05:08 MPV 9.50 fL (7.40-12.00) 08/04/17 05:08 Neut % (Auto) 53.0 % (48.0-80.0) 08/04/17 05:08 Lymph % (Auto) 29.8 % (16.0-40.0) 08/04/17 05:08 Tucker % (Auto) 13.6 % (0.0-15.0) 08/04/17 05:08 Eos % (Auto) 3.4 % (0.0-7.0) 08/04/17 05:08 Baso % (Auto) 0.2 % (0.0-1.5) 08/04/17 05:08 Neut # (Auto) 2.2 K/uL (1.4-5.7) 08/04/17 05:08 Lymph # (Auto) 1.2 K/uL (0.6-2.4) 08/04/17 05:08 Tucker # (Auto) 0.6 K/uL (0.0-0.8) 08/04/17 05:08 Eos # (Auto) 0.1 K/uL (0.0-0.7) 08/04/17 05:08 Baso # (Auto) 0.0 K/uL (0.0-0.1) 08/04/17 05:08 Nucleated RBC % 0.0 /100WBC 08/04/17 05:08 Nucleated RBCs # 0 K/uL 08/04/17 05:08 Sodium 145 mmol/L (136-148) 08/04/17 05:08 Potassium 3.2 mmol/L (3.5-5.1) L 08/04/17 05:08 Chloride 110 mmol/L (98-107) H 08/04/17 05:08 Carbon Dioxide 26.9 mmol/L (21.0-32.0) 08/04/17 05:08 BUN 14 mg/dL (7.0-18.0) 08/04/17 05:08 Creatinine 0.7 mg/dL (0.8-1.3) L 08/04/17 05:08 Est Cr Clr Drug Dosing 88.89 mL/min 08/04/17 05:08 Estimated GFR (MDRD) > 60.0 ml/min 08/04/17 05:08 Glucose 105 mg/dL (74-106) 08/04/17 05:08 POC Glucose 92 mg/dL (60-110) 08/04/17 05:31 Calcium 8.2 mg/dL (8.5-10.1) L 08/04/17 05:08 Total Bilirubin 0.5 mg/dL (0.2-1.0) 08/04/17 05:08 AST 12 IU/L (15-37) L 08/04/17 05:08 ALT 11 IU/L (14-63) L 08/04/17 05:08 Alkaline Phosphatase 49 U/L (46-116) 08/04/17 05:08 Troponin I < 0.050 ng/mL (0.000-0.056) 08/03/17 23:00 Total Protein 6.1 g/dL (6.4-8.2) L 08/04/17 05:08 Albumin 3.2 g/dL (3.4-5.0) L 08/04/17 05:08 Globulin 2.9 g/dL (2.0-3.5) 08/04/17 05:08 Albumin/Globulin Ratio 1.1 (1.3-2.8) L 08/04/17 05:08 Amylase 54 U/L (25-115) 08/03/17 10:39 Lipase 86 U/L (73-393) 08/03/17 10:39 H. pylori IgG Antibody NEGATIVE (NEG) 08/03/17 10:39 - Allergies Allergies/Adverse Reactions: Allergies Allergy/AdvReac Type Severity Reaction Status Date / Time No Known Allergies Allergy Verified 08/03/17 10:31 - Blood Blood Available: Yes - Acknowledgements Anesthesia Type Planned: MAC Pt an Appropriate Candidate for the Planned Anesthesia: Yes Alternatives and Risks of Anesthesia Discussed w Pt/Guardian: Yes Pt/Guardian Understands and Agrees with Anesthesia Plan: Yes Additional Comments: PMH: EF 45% with dilated LV, s/p coronary stent in Jan 2018, HTN, HLD, mild anemia (HB=10, normal renal function. PreAnesthesia Questionnaire - Past Health History Medical/Surgical History: Denies Medical/Surgical History HEENT History: Reports: None Cardiovascular History: Reports: High Cholesterol, Hypertension, [place], Stents Respiratory History: Reports: None Gastrointestinal History: Reports: None Genitourinary History: Reports: None Musculoskeletal History: Reports: None Neurological History: Reports: None Psychiatric History: Reports: None Endocrine/Metabolic History: Reports: None Hematologic History: Reports: None Immunologic History: Reports: None Oncologic (Cancer) History: Reports: None Dermatologic History: Reports: None - Infectious Disease History Infectious Disease History: Reports: None - Past Surgical History Head Surgeries/Procedures: Reports: None HEENT Surgical History: Reports: Tonsillectomy, Other (See Below) Other HEENT Surgeries/Procedures: Dental extraction. Throat Surgery Cardiovascular Surgical History: Reports: Coronary Artery Stent Respiratory Surgical History: Reports: None - SUBSTANCE USE Smoking Status *Q: Never Smoker Tobacco Use Within Last Twelve Months: No Second Hand Smoke Exposure: No Days Per Week of Alcohol Use: 3 Number of Drinks Per Day: 1 Total Drinks Per Week: 3 Recreational Drug Use History: No - HOME MEDS Home Medications: Home Meds Carvedilol 3.125 mg PO BID 09/22/16 [History] Isosorbide Mononitrate [Imdur] 30 mg PO DAILY 09/22/16 [History] Pantoprazole [ProTONIX] 40 mg PO ACBREAKFAST 09/22/16 [History] Pravastatin [Pravachol] 40 mg PO DAILY 09/22/16 [History] Nitroglycerin [Nitrostat] 0.4 mg SL Q5M PRN 11/22/16 [History] Clopidogrel [Plavix] 75 mg PO DAILY 04/19/17 [History] Nabumetone 500 mg PO BIDMEALS PRN 04/19/17 [History] PARoxetine [Paxil] 10 mg PO DAILY 04/19/17 [History] traMADol HCl [Tramadol HCl] 50 mg PO TID PRN 04/19/17 [History] Aspirin [Halfprin] 81 mg PO DAILY #0 tab.ec 04/20/17 [Rx] oxyCODONE HCl/Acetaminophen [oxyCODONE-Acetaminophen 5-325] 1 tab PO Q6H PRN 7 Days #28 tablet 05/04/17 [Rx] - CURRENT (IN HOUSE) MEDS Current Meds: Current Medications Acetaminophen (Tylenol) 650 mg PO Q4H PRN PRN Reason: Pain (Mild 1-3)/fever Al Hydroxide/Mg Hydroxide (Mag-Al Plus) 30 ml PO Q4H PRN PRN Reason: Heartburn Aspirin (Halfprin) 81 mg PO DAILY [facility] Last Admin: 08/04/17 08:27 Dose: Not Given Carvedilol (Coreg) 3.125 mg PO BID [facility] Last Admin: 08/04/17 08:26 Dose: 3.125 mg Clopidogrel Bisulfate (Plavix) 75 mg PO DAILY [facility] Last Admin: 08/04/17 08:27 Dose: Not Given Sodium Chloride (Normal Saline) 1,000 mls @ 100 mls/hr IV ASDIRECTED [facility] Last Admin: 08/04/17 04:40 Dose: 100 mls/hr Isosorbide Mononitrate (Imdur) 30 mg PO DAILY [facility] Last Admin: 08/04/17 08:25 Dose: 30 mg Lorazepam (Ativan) 1 mg IVPUSH Q6H PRN PRN Reason: Anxiety Morphine Sulfate (Morphine) 2 mg IVPUSH Q2H PRN PRN Reason: Pain Last Admin: 08/04/17 08:13 Dose: 2 mg Nitroglycerin (Nitrostat) 0.4 mg SL Q5M PRN PRN Reason: Chest Pain Ondansetron HCl (Zofran) 4 mg IVPUSH Q4H PRN PRN Reason: Nausea Last Admin: 08/04/17 12:39 Dose: 4 mg Oxycodone/Acetaminophen (Percocet 325-5 Mg) 1 tab PO Q6H PRN PRN Reason: Pain Pantoprazole Sodium (Protonix Iv) 40 mg IVPUSH BID [facility] Paroxetine HCl (Paxil) 10 mg PO DAILY [facility] Last Admin: 08/04/17 08:26 Dose: 10 mg Pravastatin Sodium (Pravachol) 40 mg PO BEDTIME [facility] Last Admin: 08/03/17 21:49 Dose: 40 mg Sodium Chloride (Saline Flush) 10 ml FLUSH ASDIRECTED PRN PRN Reason: Keep Vein Open Sodium Chloride (Saline Flush) 2.5 ml FLUSH ASDIRECTED PRN PRN Reason: Keep Vein Open Tramadol HCl (Ultram) 50 mg PO TID PRN PRN Reason: Pain Discontinued Medications Al Hydroxide/Mg Hydroxide 15 (ml/ Lidocaine HCl 5 ml) 0 ml PO ONETIME ONE Stop: 08/03/17 11:20 Last Admin: 08/03/17 11:24 Dose: 20 each Sodium Chloride (Normal Saline) 1,000 mls @ 999 mls/hr IV STAT ONE Stop: 08/03/17 11:29 Last Admin: 08/03/17 10:52 Dose: 999 mls/hr Pantoprazole Sodium 80 mg/ (Sodium Chloride) 100 mls @ 10 mls/hr IV Q10H [facility] Last Admin: 08/04/17 08:12 Dose: 10 mls/hr Pantoprazole Sodium (Protonix) 40 mg PO ACBREAKFAST [facility] Pantoprazole Sodium (Protonix Iv) 40 mg IVPUSH NOW ONE Stop: 08/03/17 15:02 Last Admin: 08/03/17 15:29 Dose: 40 mg
[2017-08-04] MEDS ORDERED: Propofol 200 MG/20 ML SDV ONE (13:37)
[2017-08-04] MEDS ORDERED: Midazolam 1 MG/ML 2 ML SDV ONE (13:37)
[2017-08-04] MEDS ORDERED: Lidocaine 2% 5 ML SDV ONE (13:45)
--- NOTE | 2017-08-04 15:14 | PCM48HPAN ---
Post Anesthesia Note - EVALUATION WITHIN 48HRS OF ANESTHETIC Vital Signs in Normal Range: Yes Patient Participated in Evaluation: Yes Respiratory Function Stable: Yes Airway Patent: Yes Cardiovascular Function Stable: Yes Hydration Status Stable: Yes Pain Control Satisfactory: Yes Nausea and Vomiting Control Satisfactory: Yes Mental Status Recovered: Yes Pulse Rate: 70 Resp Rate: 10 Blood Pressure: 133/79
--- NOTE | 2017-08-04 15:32 | PCM.OPNOTE ---
- General Post-Op/Procedure Note Date of Surgery/Procedure: 08/04/17 Operative Procedure(s): Diagnostic EGD Findings: Normal EGD Pre Op Diagnosis: Epigastric pain Post-Op Diagnosis: Normal EGD Anesthesia Technique: MAC Primary Surgeon: Tere Chen Condition: Good Free Text/Narrative:: Intake & Output 08/04/17 08/04/17 08/04/17 06:59 14:59 22:59 Intake Total 100 400 Output Total 350 Balance -250 400
[2017-08-04] MEDS ORDERED: Potassium Chloride 20 MEQ Tab.ER PO ONE (16:02)
--- NOTE | 2017-08-04 16:26 | PCM.DCSUM1 ---
Discharge Summary - Hospital Course Free Text/Narrative:: Patient with history of anxiety and depression was admitted in the hospital due to syncope while he went to the lab to have blood drawn. Patient is poor historian. he also c/o abdominal pain epigastric and had Ct abdomen which was negative for abnormal findings other than some changes in the pelvic bones that can represent Paget disease.Patient was given protonix Iv for pain and had Surgery consult and EGD today with no significative findings. His H pylori was negative. Patient was cleared for discharge by surgery , f/up surgery , Occult blood pending. Surgery recommended patient to continue the aspirin and plavix , if FOBT positive patient will need colonoscopy. His syncope was vasovagal. Patient had no arrhythmia on monitor HPI Initial Comments: Patient is a 72 y old man who presented to Er because patient patient passed out while he was at the labs to have blood drawn. Rapid response was called , patient was sitting in the chair , had sweating. He states that since yesterday morning he was not feeling well soon after he ate his breakfast. He had 4 watery bowel movements and epigastric pain , severe and did not eat anything since yesterday morning due to abdominal pain. He suffers from anxiety , too . Had Echo done 2016 which shows EF of 45 % , dilatation of the left ventricle in the systole. Carotid doppler show 50-69 stenosis b/l carotid arteries. - Discharge Data Discharge Date: 08/04/17 Discharge Disposition: Home, Self-Care 01 Condition: Good - Discharge Diagnosis/Problem(s) (1) Epigastric abdominal pain of unknown etiology SNOMED Code(s): 327176377, 304329020 ICD Code: R10.13 - EPIGASTRIC PAIN Status: Acute (2) Syncope SNOMED Code(s): 919825118 ICD Code: R55 - SYNCOPE AND COLLAPSE Status: Acute Qualifiers: Syncope type: unspecified Qualified Code(s): R55 - Syncope and collapse (3) Anxiety SNOMED Code(s): 48681519 ICD Code: F41.9 - ANXIETY DISORDER, UNSPECIFIED Status: Acute - Patient Summary/Data Operative Procedure(s) Performed: Diagnostic EGD Consults: Consultations 08/03/17 14:29 Consult to Physician [CONS] Routine 08/03/17 20:17 Consult to Physician [CONS] Urgent GI consult - Patient Instructions Activity: As Tolerated Showering/Bathing: August Shower - Discharge Plan Home Medications: Home Meds Carvedilol 3.125 mg PO BID 09/22/16 [History] Isosorbide Mononitrate [Imdur] 30 mg PO DAILY 09/22/16 [History] Pantoprazole [ProTONIX] 40 mg PO ACBREAKFAST 09/22/16 [History] Pravastatin [Pravachol] 40 mg PO DAILY 09/22/16 [History] Nitroglycerin [Nitrostat] 0.4 mg SL Q5M PRN 11/22/16 [History] Clopidogrel [Plavix] 75 mg PO DAILY 04/19/17 [History] Nabumetone 500 mg PO BIDMEALS PRN 04/19/17 [History] PARoxetine [Paxil] 10 mg PO DAILY 04/19/17 [History] traMADol HCl [Tramadol HCl] 50 mg PO TID PRN 04/19/17 [History] Aspirin [Halfprin] 81 mg PO DAILY #0 tab.ec 04/20/17 [Rx] oxyCODONE HCl/Acetaminophen [oxyCODONE-Acetaminophen 5-325] 1 tab PO Q6H PRN 7 Days #28 tablet 05/04/17 [Rx] Patient Handouts: Esophagogastroduodenoscopy, Care After, Syncope, [id number] Referrals: Bo Lopez MD [Physician] - 08/12/17 8:00 am Tere Chen MD [Physician] - 08/12/17 1:15 pm Eliane Jang NP [Nurse Practitioner] - 08/29/17 1:00 pm - Discharge Summary/Plan Comment DC Time >30 min.: Yes - General Info Date of Service: 08/04/17 Admission Dx/Problem (Free Text: Admission Diagnosis/Problem Admission Diagnosis/Problem Syncope, abdominal pain Functional Status: Reports: Pain Controlled - Review of Systems General: Reports: No Symptoms HEENT: Reports: No Symptoms Pulmonary: Reports: No Symptoms Cardiovascular: Reports: No Symptoms Gastrointestinal: Reports: No Symptoms Genitourinary: Reports: No Symptoms Musculoskeletal: Reports: No Symptoms - Patient Data Vitals - Most Recent: Last Vital Signs Temp 98 F 08/04/17 11:54 Pulse 70 08/04/17 15:14 Resp 10 L 08/04/17 15:14 BP 133/79 08/04/17 15:14 Pulse Ox 96 08/04/17 15:12 Orthostatic Blood Pressure [ 121/86 Standing] Orthostatic Blood Pressure [ 140/93 Sitting] Orthostatic Blood Pressure [ 122/81 Supine] Weight - Most Recent: 141 lb 1.533 oz I&O - Last 24 hours: Intake & Output 08/04/17 08/04/17 08/04/17 06:59 14:59 22:59 Intake Total 100 400 Output Total 350 Balance -250 400 Lab Results - Last 24 hrs: Laboratory Results - last 24 hr 08/03/17 08/03/17 08/03/17 Range/Units 17:23 23:00 23:00 WBC 4.44 (4.0-11.0) K/uL RBC 3.82 L (4.50-5.90) M/uL Hgb 10.9 L (13.0-17.0) g/dL Hct 33.0 L (38.0-50.0) % MCV 86.4 (80.0-98.0) fL MCH 28.5 (27.0-32.0) pg MCHC 33.0 (31.0-37.0) g/dL RDW Std Deviation 48.5 (28.0-62.0) fl RDW Coeff of Ethan 15 (11.0-15.0) % Plt Count 197 (150-400) K/uL MPV 9.30 (7.40-12.00) fL Neut % (Auto) 53.1 (48.0-80.0) % Lymph % (Auto) 32.9 (16.0-40.0) % [place] % (Auto) 10.4 (0.0-15.0) % Eos % (Auto) 3.4 (0.0-7.0) % Baso % (Auto) 0.2 (0.0-1.5) % Neut # (Auto) 2.4 (1.4-5.7) K/uL Lymph # (Auto) 1.5 (0.6-2.4) K/uL [place] # (Auto) 0.5 (0.0-0.8) K/uL Eos # (Auto) 0.2 (0.0-0.7) K/uL Baso # (Auto) 0.0 (0.0-0.1) K/uL Nucleated RBC % 0.0 /100WBC Nucleated RBCs # 0 K/uL Sodium (136-148) mmol/L Potassium (3.5-5.1) mmol/L Chloride (98-107) mmol/L Carbon Dioxide (21.0-32.0) mmol/L BUN (7.0-18.0) mg/dL Creatinine (0.8-1.3) mg/dL Est Cr Clr Drug Dosing mL/min Estimated GFR (MDRD) ml/min Glucose (74-106) mg/dL POC Glucose (60-110) mg/dL Calcium (8.5-10.1) mg/dL Total Bilirubin (0.2-1.0) mg/dL AST (15-37) IU/L ALT (14-63) IU/L Alkaline Phosphatase (46-116) U/L Troponin I < 0.050 < 0.050 (0.000-0.056) ng/mL Total Protein (6.4-8.2) g/dL Albumin (3.4-5.0) g/dL Globulin (2.0-3.5) g/dL Albumin/Globulin Ratio (1.3-2.8) 08/04/17 08/04/17 08/04/17 Range/Units 05:08 05:08 05:31 WBC 4.13 (4.0-11.0) K/uL RBC 3.84 L (4.50-5.90) M/uL Hgb 10.8 L (13.0-17.0) g/dL Hct 33.4 L (38.0-50.0) % MCV 87.0 (80.0-98.0) fL MCH 28.1 (27.0-32.0) pg MCHC 32.3 (31.0-37.0) g/dL RDW Std Deviation 49.3 (28.0-62.0) fl RDW Coeff of Ethan 15 (11.0-15.0) % Plt Count 186 (150-400) K/uL MPV 9.50 (7.40-12.00) fL Neut % (Auto) 53.0 (48.0-80.0) % Lymph % (Auto) 29.8 (16.0-40.0) % [place] % (Auto) 13.6 (0.0-15.0) % Eos % (Auto) 3.4 (0.0-7.0) % Baso % (Auto) 0.2 (0.0-1.5) % Neut # (Auto) 2.2 (1.4-5.7) K/uL Lymph # (Auto) 1.2 (0.6-2.4) K/uL [place] # (Auto) 0.6 (0.0-0.8) K/uL Eos # (Auto) 0.1 (0.0-0.7) K/uL Baso # (Auto) 0.0 (0.0-0.1) K/uL Nucleated RBC % 0.0 /100WBC Nucleated RBCs # 0 K/uL Sodium 145 (136-148) mmol/L Potassium 3.2 L (3.5-5.1) mmol/L Chloride 110 H (98-107) mmol/L Carbon Dioxide 26.9 (21.0-32.0) mmol/L BUN 14 (7.0-18.0) mg/dL Creatinine 0.7 L (0.8-1.3) mg/dL Est Cr Clr Drug Dosing 88.89 mL/min Estimated GFR (MDRD) > 60.0 ml/min Glucose 105 (74-106) mg/dL POC Glucose 92 (60-110) mg/dL Calcium 8.2 L (8.5-10.1) mg/dL Total Bilirubin 0.5 (0.2-1.0) mg/dL AST 12 L (15-37) IU/L ALT 11 L (14-63) IU/L Alkaline Phosphatase 49 (46-116) U/L Troponin I (0.000-0.056) ng/mL Total Protein 6.1 L (6.4-8.2) g/dL Albumin 3.2 L (3.4-5.0) g/dL Globulin 2.9 (2.0-3.5) g/dL Albumin/Globulin Ratio 1.1 L (1.3-2.8) GARCIA Results - Last 24 hrs: Microbiology 08/04/17 14:54 Stool Occult Blood (GARCIA) - Final Stool / Feces NEGATIVE OCCULT BLOOD Med Orders - Current: Current Medications Acetaminophen (Tylenol) 650 mg PO Q4H PRN PRN Reason: Pain (Mild 1-3)/fever Al Hydroxide/Mg Hydroxide (Mag-Al Plus) 30 ml PO Q4H PRN PRN Reason: Heartburn Aspirin (Halfprin) 81 mg PO DAILY [facility] Last Admin: 08/04/17 08:27 Dose: Not Given Carvedilol (Coreg) 3.125 mg PO BID [facility] Last Admin: 08/04/17 08:26 Dose: 3.125 mg Clopidogrel Bisulfate (Plavix) 75 mg PO DAILY [facility] Last Admin: 08/04/17 08:27 Dose: Not Given Sodium Chloride (Normal Saline) 1,000 mls @ 100 mls/hr IV ASDIRECTED [facility] Last Admin: 08/04/17 04:40 Dose: 100 mls/hr Isosorbide Mononitrate (Imdur) 30 mg PO DAILY [facility] Last Admin: 08/04/17 08:25 Dose: 30 mg Lorazepam (Ativan) 1 mg IVPUSH Q6H PRN PRN Reason: Anxiety Morphine Sulfate (Morphine) 2 mg IVPUSH Q2H PRN PRN Reason: Pain Last Admin: 08/04/17 08:13 Dose: 2 mg Nitroglycerin (Nitrostat) 0.4 mg SL Q5M PRN PRN Reason: Chest Pain Ondansetron HCl (Zofran) 4 mg IVPUSH Q4H PRN PRN Reason: Nausea Last Admin: 08/04/17 12:39 Dose: 4 mg Oxycodone/Acetaminophen (Percocet 325-5 Mg) 1 tab PO Q6H PRN PRN Reason: Pain Pantoprazole Sodium (Protonix Iv) 40 mg IVPUSH BID [facility] Paroxetine HCl (Paxil) 10 mg PO DAILY [facility] Last Admin: 08/04/17 08:26 Dose: 10 mg Pravastatin Sodium (Pravachol) 40 mg PO BEDTIME [facility] Last Admin: 08/03/17 21:49 Dose: 40 mg Sodium Chloride (Saline Flush) 10 ml FLUSH ASDIRECTED PRN PRN Reason: Keep Vein Open Sodium Chloride (Saline Flush) 2.5 ml FLUSH ASDIRECTED PRN PRN Reason: Keep Vein Open Tramadol HCl (Ultram) 50 mg PO TID PRN PRN Reason: Pain Discontinued Medications Al Hydroxide/Mg Hydroxide 15 (ml/ Lidocaine HCl 5 ml) 0 ml PO ONETIME ONE Stop: 08/03/17 11:20 Last Admin: 08/03/17 11:24 Dose: 20 each Sodium Chloride (Normal Saline) 1,000 mls @ 999 mls/hr IV STAT ONE Stop: 08/03/17 11:29 Last Admin: 08/03/17 10:52 Dose: 999 mls/hr Pantoprazole Sodium 80 mg/ (Sodium Chloride) 100 mls @ 10 mls/hr IV Q10H ERICK Last Admin: 08/04/17 08:12 Dose: 10 mls/hr Lidocaine (Xylocaine-Mpf 2%) Confirm Administered Dose 5 ml .ROUTE .STK-MED ONE Stop: 08/04/17 13:46 Midazolam HCl (Versed 1 Mg/Ml) Confirm Administered Dose 2 mg .ROUTE .STK-MED ONE Stop: 08/04/17 13:38 Pantoprazole Sodium (Protonix) 40 mg PO ACBREAKFAST ERICK Pantoprazole Sodium (Protonix Iv) 40 mg IVPUSH NOW ONE Stop: 08/03/17 15:02 Last Admin: 08/03/17 15:29 Dose: 40 mg Potassium Chloride (Klor-Con M20) 40 meq PO ONETIME ONE Stop: 08/04/17 16:03 Propofol (Diprivan 20 Ml) Confirm Administered Dose 200 mg .ROUTE .STK-MED ONE Stop: 08/04/17 13:38 - Exam General: Reports: Alert, Oriented HEENT: Reports: Pupils Equal, Pupils Reactive Neck: Reports: Supple, +2 Carotid Pulse wo Bruit Lungs: Reports: Clear to Auscultation, Normal Respiratory Effort GI/Abdominal Exam: Normal Bowel Sounds, Guarding, Tender (epigastru). No: Rebound Back Exam: Reports: Normal Inspection Skin: Reports: Warm, Dry Wound/Incisions: Reports: Healing Well Neurological: Reports: No New Focal Deficit Psy/Mental Status: Reports: Alert
[2017-08-04 18:07] VITALS: BP 101/78
[2017-08-04] MEDS ORDERED: Pantoprazole 40 MG Vial IVPUSH SCH (21:00)
--- NOTE | 2017-08-04 22:27 | OR ---
SURGEON: TERE CHEN MD DATE OF PROCEDURE: 08/04/2017 PREOPERATIVE DIAGNOSIS: Epigastric pain, melenic stool. POSTOPERATIVE DIAGNOSIS: Normal EGD. PROCEDURE PERFORMED: Diagnostic EGD. ENDOSCOPIST: Tere Chen MD INSTRUMENT USED: Olympus endoscope. ANESTHESIA: MAC EXTENT OF EXAM: To the second portion of duodenum. PREPARATION: Good. LIMITATIONS: None. INDICATION FOR EXAMINATION: The patient is a 72-year-old male who was admitted to the hospitalist service yesterday after a syncopal episode. The patient complained of acute epigastric pain as well as melenic diarrhea over the last two days. The decision was made to proceed with a diagnostic EGD to rule out any peptic ulcer disease. The patient and I discussed the procedure, expected perioperative course, and risks including bleeding, or perforation. The patient verbalized understanding and wishes to proceed. PROCEDURE IN DETAIL: The patient was brought to the endoscopy suite and placed in a beach chair position. A time-out was completed verifying the patient's name, age, date of , allergies, and procedure to be performed. A bite block was placed in the patient's mouth and monitored anesthesia care induced. Continuous oxygen was provided via nasal cannula throughout the procedure. After adequate sedation was achieved, a well lubricated endoscope was placed in the patient's mouth and advanced under direct visualization to the second portion of duodenum. This appeared normal and a photograph was taken. The scope was then fully withdrawn while examining the color, texture, anatomy, and integrity of the mucosa of the upper GI tract. There was no evidence of a duodenal ulcer or any inflammation of the intestinal mucosa. The scope was brought into the stomach and a photograph was taken of the pylorus and GE junction. Both appeared normal. Close inspection of the gastric mucosa revealed no inflammation or ulceration. The scope was brought into the distal esophagus. A photograph taken of the Z- line which was normal. The esophageal mucosa was free of pathology. The scope was then removed from the patient and the procedure terminated. The patient tolerated procedure well and was taken to PACU in stable condition. ENDOSCOPIC DIAGNOSIS: Normal EGD. RECOMMENDATIONS: The patient is all ready to advance his diet after this procedure. We will discuss further management with the Medicine team, but the patient remained stable. CECI / BRENDA /[id number]
== END 2017-08-04 17:15 | disposition home or self-care (01) ==
LOC: MW.ED 10:26 → MW.ICU 13:00 → MW.MS 20:44
PROVIDERS: ADMIT Internal Medicine; ATTEND Internal Medicine
DX: R10.13 Epigastric pain (principal); R55 Syncope and collapse; I10 Essential (primary) hypertension; E78.00 Pure hypercholesterolemia, unspecified; I25.2 Old myocardial infarction; F41.8 Other specified anxiety disorders; Z79.82 Long term (current) use of aspirin; Z79.899 Other long term (current) drug therapy
CPT/HCPCS: 36415; 43235; 70450; 71045; 74178; 80053; 82150; 82272; 82962; 83690; 84484; 85025; 86677; 93005; 96361; 96374; 96375; 96376; 99285; A9270; C9113; G0378; J2060; J2250; J2270; J2405; J7030; J7040; 00731; 96360; J2704

== ENCOUNTER 2017-12-28 12:06 | Emergency (ER) | payer MEDICARE, OTHER | END 2017-12-28 13:31 | disposition left against medical advice (07) | LOC: MW.ED 12:06 | DX: Z53.21 Procedure and treatment not carried out due to patient leaving prior to being seen by health care provider (principal) ==

== ENCOUNTER 2017-12-30 14:25 | Observation (INO) | payer MEDICARE, OTHER ==
[2017-12-30] MEDS ORDERED: Sodium Chloride 0.9% 1,000 ML IV ONE (14:29)
[2017-12-30] MEDS ORDERED: Aspirin 81 MG Tab.Chew PO ONE (14:29)
--- NOTE | 2017-12-30 14:35 | EDM.PDOC ---
ED HPI GENERAL MEDICAL PROBLEM - General Stated Complaint: CHEST PAINS Time Seen by Provider: 12/30/17 14:31 Source of Information: Reports: Patient History Limitations: Reports: No Limitations - History of Present Illness INITIAL COMMENTS - FREE TEXT/NARRATIVE: HISTORY AND PHYSICAL: History of present illness: Patient is a 72-year-old male who presents to the emergency room with complaints of midsternal chest pain since 11 AM. He states he was taking a morning nap when he was awoken with midsternal chest pain that has not subsided. He denies any fever, chills, shortness of breath or cough. Denies any syncope, near syncope or diaphoresis. Denies any GI or symptoms. Patient has a past medical history of anxiety and hypertension, cardiac stents and elevated cholesterol. Review of systems: As per history of present illness and below otherwise all systems reviewed and negative. Past medical history: As per history of present illness and as reviewed below otherwise noncontributory. Surgical history: As per history of present illness and as reviewed below otherwise noncontributory. Social history: No reported history of drug or alcohol abuse. Family history: As per history of present illness and as reviewed below otherwise noncontributory. Physical exam: General: Well-developed and well-nourished 72-year-old male. Alert and oriented. Nontoxic appearing, mildly anxious, tearful but in no acute distress. HEENT: Atraumatic, normocephalic, pupils equal and reactive bilaterally, negative for conjunctival pallor or scleral icterus, mucous membranes moist, throat clear, neck supple, nontender, trachea midline. No drooling or trismus noted. No meningeal signs Lungs: Clear to auscultation, breath sounds equal bilaterally, anterior chest wall tenderness with palpation. Heart: S1S2, regular rate and rhythm without overt murmur Abdomen: Soft, nondistended, nontender. Negative for masses or hepatosplenomegaly. Negative for costovertebral tenderness. Pelvis: Stable nontender. Genitourinary: Deferred. Rectal: Deferred. Skin: Intact, warm, dry. No lesions or rashes noted. Extremities: Atraumatic, negative for cords or calf pain. Neurovascular unremarkable. Neuro: Awake, alert, oriented. Cranial nerves II through XII unremarkable. Cerebellum unremarkable. Motor and sensory unremarkable throughout. Exam nonfocal. Notes: Lab is unremarkable, EKG shows no changes from previous, chest x-ray shows no evidence of pneumonia or infiltrate. Vital signs are stable. She is pain free. This information was shared with the patient. He is agreeable to staying overnight for observation. Dr. Carrasco was consulted on this case and aware of the patient's diagnostic's and current status. He is agreeable that patient should be observed with telemetry. Diagnostics: CBC, CMP, troponin, EKG, chest x-ray Therapeutics: Aspirin, IV fluid, nitroglycerin Impression: Chest Pain r/o [place] Plan: Observation admission with telemetry Definitive disposition and diagnosis as appropriate pending reevaluation and review of above. Onset: Today Chest Pain Score (Numeric/FACES): 10 - Related Data Allergies Allergy/AdvReac Type Severity Reaction Status Date / Time No Known Allergies Allergy Verified 12/30/17 14:50 Home Meds: Home Meds Carvedilol 3.125 mg PO BID 09/22/16 [History] Isosorbide Mononitrate [Imdur] 30 mg PO DAILY 09/22/16 [History] Pantoprazole [ProTONIX] 40 mg PO ACBREAKFAST 09/22/16 [History] Pravastatin [Pravachol] 40 mg PO DAILY 09/22/16 [History] Clopidogrel [Plavix] 75 mg PO DAILY 04/19/17 [History] Nabumetone 500 mg PO BIDMEALS PRN 04/19/17 [History] PARoxetine [Paxil] 10 mg PO DAILY 04/19/17 [History] traMADol HCl [Tramadol HCl] 50 mg PO TID PRN 04/19/17 [History] Aspirin [Halfprin] 81 mg PO DAILY #0 tab.ec 04/20/17 [Rx] oxyCODONE HCl/Acetaminophen [oxyCODONE-Acetaminophen 5-325] 1 tab PO Q6H PRN 7 Days #28 tablet 05/04/17 [Rx] Past Medical History - Past Health History Medical/Surgical History: Denies Medical/Surgical History HEENT History: Reports: None Cardiovascular History: Reports: High Cholesterol, Hypertension, [place], Stents Respiratory History: Reports: None Gastrointestinal History: Reports: None Genitourinary History: Reports: None Musculoskeletal History: Reports: None Neurological History: Reports: None Psychiatric History: Reports: None Endocrine/Metabolic History: Reports: None Hematologic History: Reports: None Immunologic History: Reports: None Oncologic (Cancer) History: Reports: None Dermatologic History: Reports: None - Infectious Disease History Infectious Disease History: Reports: None - Past Surgical History Head Surgeries/Procedures: Reports: None HEENT Surgical History: Reports: Tonsillectomy, Other (See Below) Other HEENT Surgeries/Procedures: Dental extraction. Throat Surgery Cardiovascular Surgical History: Reports: Coronary Artery Stent Respiratory Surgical History: Reports: None Social & Family History - Family History Family Medical History: Noncontributory Cardiac: Reports: [place] Respiratory: Reports: None Endocrine/Metabolic: Reports: Diabetes, Type I Hematologic: Reports: None Oncologic: Reports: Other (See Below) Other Oncologic Family History: Father side has cancer but patient doesn't know exactly what kind of CA - Caffeine Use Caffeine Use: Reports: Coffee, Soda Caffeine Use Comment: daily - Living Situation & Occupation Living situation: Reports: Occupation: Retired ED ROS GENERAL - Review of Systems Review Of Systems: ROS reveals no pertinent complaints other than HPI. ED EXAM, GENERAL - Physical Exam Exam: See Below (See dictation) Course - Vital Signs Last Recorded V/S: Last Vital Signs Temp 97.2 F 12/30/17 15:57 Pulse 71 12/30/17 15:57 Resp 18 12/30/17 15:57 BP 120/76 12/30/17 15:57 Pulse Ox 95 12/30/17 15:57 - Orders/Labs/Meds Orders: Active Orders 24 hr Category Date Time Status EKG Documentation Completion [RC] STAT Care 12/30/17 14:29 Active Labs: Laboratory Tests 12/30/17 12/30/17 Range/Units 14:37 14:37 WBC 5.59 (4.0-11.0) K/uL RBC 4.28 L (4.50-5.90) M/uL Hgb 12.2 L (13.0-17.0) g/dL Hct 36.6 L (38.0-50.0) % MCV 85.5 (80.0-98.0) fL MCH 28.5 (27.0-32.0) pg MCHC 33.3 (31.0-37.0) g/dL RDW Std Deviation 46.1 (28.0-62.0) fl RDW Coeff of Ethan 15 (11.0-15.0) % Plt Count 264 (150-400) K/uL MPV 9.30 (7.40-12.00) fL Neut % (Auto) 56.9 (48.0-80.0) % Lymph % (Auto) 28.4 (16.0-40.0) % [place] % (Auto) 13.1 (0.0-15.0) % Eos % (Auto) 1.4 (0.0-7.0) % Baso % (Auto) 0.2 (0.0-1.5) % Neut # (Auto) 3.2 (1.4-5.7) K/uL Lymph # (Auto) 1.6 (0.6-2.4) K/uL [place] # (Auto) 0.7 (0.0-0.8) K/uL Eos # (Auto) 0.1 (0.0-0.7) K/uL Baso # (Auto) 0.0 (0.0-0.1) K/uL Nucleated RBC % 0.0 /100WBC Nucleated RBCs # 0 K/uL Sodium 141 (136-148) mmol/L Potassium 3.7 (3.5-5.1) mmol/L Chloride 103 (98-107) mmol/L Carbon Dioxide 26.2 (21.0-32.0) mmol/L BUN 15 (7.0-18.0) mg/dL Creatinine 0.9 (0.8-1.3) mg/dL Est Cr Clr Drug Dosing 71.05 mL/min Estimated GFR (MDRD) > 60.0 ml/min Glucose 117 H (74-106) mg/dL Calcium 9.3 (8.5-10.1) mg/dL Total Bilirubin 0.5 (0.2-1.0) mg/dL AST 15 (15-37) IU/L ALT 18 (14-63) IU/L Alkaline Phosphatase 72 (46-116) U/L Troponin I < 0.050 (0.000-0.056) ng/mL Total Protein 7.6 (6.4-8.2) g/dL Albumin 4.0 (3.4-5.0) g/dL Globulin 3.6 H (2.0-3.5) g/dL Albumin/Globulin Ratio 1.1 L (1.3-2.8) Meds: Medications Discontinued Medications Generic Name Dose Route Start Last Admin Trade Name Freq PRN Reason Stop Dose Admin Aspirin 324 mg 12/30/17 14:29 12/30/17 14:53 Aspirin PO 12/30/17 14:30 324 mg ONETIME ONE Administration Sodium Chloride 1,000 mls @ 999 mls/hr 12/30/17 14:29 12/30/17 14:53 Normal Saline IV 12/30/17 15:29 999 mls/hr STAT ONE Administration Morphine Sulfate 2 mg 12/30/17 15:06 12/30/17 15:10 Morphine IVPUSH 12/30/17 15:07 2 mg ONETIME ONE Administration Nitroglycerin 0.4 mg 12/30/17 14:29 12/30/17 15:03 Nitrostat SL 0.4 mg Q5M PRN Administration Chest Pain Departure - Departure Time of Disposition: 16:05 Disposition: Refer to Observation Clinical Impression: Chest pain, rule out acute myocardial infarction Referrals: PCP,None [Primary Care Provider] - - My Orders Last 24 Hours: My Active Orders 12/30/17 14:29 EKG Documentation Completion [RC] STAT - Assessment/Plan Last 24 Hours: My Active Orders 12/30/17 14:29 EKG Documentation Completion [RC] STAT
[2017-12-30] MEDS: Nitroglycerin 0.4 MG Tab.SL SL PRN ×3 (14:53→15:03)
[2017-12-30] MEDS ORDERED: Morphine 2 MG/ML Syringe IVPUSH ONE (15:06)
[2017-12-30 15:18] LABS: CHLORIDE,CL 103 mmol/L (98-107); SODIUM,NA 141 mmol/L (136-148)
--- NOTE | 2017-12-30 15:36 | CR ---
EXAMINATION: Portable chest radiograph. HISTORY: Chest pain. FINDINGS: The trachea is midline. The cardiomediastinal silhouette is within normal limits. No pulmonary infilt rates, effusions or pneumothorax. Osseous structures appear unremarkable. IMPRESSION: No acute cardiopulmonary process.
[2017-12-30] MEDS ORDERED: Nitroglycerin 0.4 MG Tab.SL SL PRN (16:44)
[2017-12-30] MEDS ORDERED: Enoxaparin 40 MG/0.4 ML Syringe SUBCUT SCH (16:45)
[2017-12-30] MEDS ORDERED: Ondansetron 4 MG/2 ML SDV IVPUSH PRN (16:46)
--- NOTE | 2017-12-30 16:58 | PCM.HP ---
H&P History of Present Illness - General Date of Service: 12/30/17 Admit Problem/Dx: Admission Diagnosis/Problem Admission Diagnosis/Problem Chest pain, rule out acute myocardial infarction - History of Present Illness Initial Comments - Free Text/Narative: The patient is a 72-year-old male who presented to the ER today with chest pain. He states that he was sleeping and woke up to the chest pain, left-sided , nonradiating, sharp pain that has been constant since 11 AM. He denies associated shortness of breath, nausea, vomiting or diaphoresis. He does have a significant cardiac history with 3 stents placed, 2 stents placed in 2009 and one in 2017. He saw Dr. Fay his financial services director last month and everything was going fine. He has had stress tests in the past but not in recent years. In the ER, they did initial lab work with a negative troponin. 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 They did a chest x-ray that showed no acute cardiopulmonary process. In the ER he was given aspirin and nitroglycerin without relief. Started on IV fluids. His pain is reproducible with palpation. Chest Pain Score (Numeric/FACES): 10 - Related Data Allergies/Adverse Reactions: Allergies Allergy/AdvReac Type Severity Reaction Status Date / Time No Known Allergies Allergy Verified 12/30/17 14:50 Home Medications: Home Meds Carvedilol 3.125 mg PO BID 09/22/16 [History] Isosorbide Mononitrate [Imdur] 30 mg PO DAILY 09/22/16 [History] Pantoprazole [ProTONIX] 40 mg PO ACBREAKFAST 09/22/16 [History] Pravastatin [Pravachol] 40 mg PO DAILY 09/22/16 [History] Clopidogrel [Plavix] 75 mg PO DAILY 04/19/17 [History] Nabumetone 500 mg PO BIDMEALS PRN 04/19/17 [History] PARoxetine [Paxil] 10 mg PO DAILY 04/19/17 [History] traMADol HCl [Tramadol HCl] 50 mg PO TID PRN 04/19/17 [History] Aspirin [Halfprin] 81 mg PO DAILY #0 tab.ec 04/20/17 [Rx] oxyCODONE HCl/Acetaminophen [oxyCODONE-Acetaminophen 5-325] 1 tab PO Q6H PRN 7 Days #28 tablet 05/04/17 [Rx] Past Medical History HEENT History: Reports: None Other HEENT History: wears glasses Cardiovascular History: Reports: High Cholesterol, Hypertension, MT, Stents Respiratory History: Reports: None Gastrointestinal History: Reports: None Genitourinary History: Reports: None Musculoskeletal History: Reports: None Neurological History: Reports: None Psychiatric History: Reports: Anxiety, Depression Endocrine/Metabolic History: Reports: None Hematologic History: Reports: None Immunologic History: Reports: None Oncologic (Cancer) History: Reports: None Dermatologic History: Reports: None - Infectious Disease History Infectious Disease History: Reports: None - Past Surgical History Head Surgeries/Procedures: Reports: None HEENT Surgical History: Reports: Tonsillectomy, Other (See Below) Other HEENT Surgeries/Procedures: Dental extraction. Throat Surgery Cardiovascular Surgical History: Reports: Coronary Artery Stent Respiratory Surgical History: Reports: None GI Surgical History: Reports: Appendectomy Social & Family History - Family History Family Medical History: Noncontributory Cardiac: Reports: MT Respiratory: Reports: None Endocrine/Metabolic: Reports: Diabetes, Type I Hematologic: Reports: None Oncologic: Reports: Other (See Below) Other Oncologic Family History: Father side has cancer but patient doesn't know exactly what kind of CA - Tobacco Use Smoking Status *Q: Never Smoker - Caffeine Use Caffeine Use: Reports: Coffee, Soda Caffeine Use Comment: daily - Alcohol Use Alcohol Use History: Yes Alcohol Use Comment: occasional, not daily - Recreational Drug Use Recreational Drug Use: No - Living Situation & Occupation Living situation: Reports: Occupation: Retired H&P Review of Systems - Review of Systems: Review Of Systems: See Below General: Reports: No Symptoms HEENT: Reports: No Symptoms Pulmonary: Reports: No Symptoms Cardiovascular: Reports: Chest Pain. Denies: Palpitations, Edema, Lightheadedness Gastrointestinal: Reports: No Symptoms Genitourinary: Reports: No Symptoms Musculoskeletal: Reports: No Symptoms Skin: Reports: No Symptoms Psychiatric: Reports: No Symptoms Neurological: Reports: No Symptoms Hematologic/Lymphatic: Reports: No Symptoms Immunologic: Reports: No Symptoms Exam - Exam Exam: See Below - Vital Signs Vital Signs: Last Vital Signs Temp 97.2 F 12/30/17 15:57 Pulse 71 12/30/17 15:57 Resp 18 12/30/17 15:57 BP 120/76 12/30/17 15:57 Pulse Ox 95 12/30/17 15:57 Weight: 65.771 kg - Exam General: Alert, Oriented, Cooperative HEENT: Conjunctiva Clear, EOMI, Mucosa Moist & [place], Posterior Pharynx Clear, Pupils Equal, Pupils Reactive Lungs: Clear to Auscultation, Normal Respiratory Effort Cardiovascular: Regular Rate, Regular Rhythm GI/Abdominal Exam: Normal Bowel Sounds, Soft, Non-Tender, No Distention Extremities: Normal Inspection, No Pedal Edema Skin: Warm, Dry, Intact Neuro Extensive - Mental Status: Alert, Oriented x3, Normal Mood/Affect Psychiatric: Alert, Normal Affect, Normal Mood Physical Exam Comments:: left sided chest- tender to palpation - Patient Data Lab Results Last 24 hrs: Laboratory Results - last 24 hr 12/30/17 12/30/17 Range/Units 14:37 14:37 WBC 5.59 (4.0-11.0) K/uL RBC 4.28 L (4.50-5.90) M/uL Hgb 12.2 L (13.0-17.0) g/dL Hct 36.6 L (38.0-50.0) % MCV 85.5 (80.0-98.0) fL MCH 28.5 (27.0-32.0) pg MCHC 33.3 (31.0-37.0) g/dL RDW Std Deviation 46.1 (28.0-62.0) fl RDW Coeff of Ethan 15 (11.0-15.0) % Plt Count 264 (150-400) K/uL MPV 9.30 (7.40-12.00) fL Neut % (Auto) 56.9 (48.0-80.0) % Lymph % (Auto) 28.4 (16.0-40.0) % [place] % (Auto) 13.1 (0.0-15.0) % Eos % (Auto) 1.4 (0.0-7.0) % Baso % (Auto) 0.2 (0.0-1.5) % Neut # (Auto) 3.2 (1.4-5.7) K/uL Lymph # (Auto) 1.6 (0.6-2.4) K/uL [place] # (Auto) 0.7 (0.0-0.8) K/uL Eos # (Auto) 0.1 (0.0-0.7) K/uL Baso # (Auto) 0.0 (0.0-0.1) K/uL Nucleated RBC % 0.0 /100WBC Nucleated RBCs # 0 K/uL Sodium 141 (136-148) mmol/L Potassium 3.7 (3.5-5.1) mmol/L Chloride 103 (98-107) mmol/L Carbon Dioxide 26.2 (21.0-32.0) mmol/L BUN 15 (7.0-18.0) mg/dL Creatinine 0.9 (0.8-1.3) mg/dL Est Cr Clr Drug Dosing 71.05 mL/min Estimated GFR (MDRD) > 60.0 ml/min Glucose 117 H (74-106) mg/dL Calcium 9.3 (8.5-10.1) mg/dL Total Bilirubin 0.5 (0.2-1.0) mg/dL AST 15 (15-37) IU/L ALT 18 (14-63) IU/L Alkaline Phosphatase 72 (46-116) U/L Troponin I < 0.050 (0.000-0.056) ng/mL Total Protein 7.6 (6.4-8.2) g/dL Albumin 4.0 (3.4-5.0) g/dL Globulin 3.6 H (2.0-3.5) g/dL Albumin/Globulin Ratio 1.1 L (1.3-2.8) Result Diagrams: 12/30/17 14:37 12/30/17 14:37 Problem List Initiated/Reviewed/Updated: Yes Orders Last 24hrs: Active Orders 24 hr Category Date Time Status Admission Status [Patient Status] [ADT] Stat ADT 12/30/17 16:06 Active Cardiac Monitoring [RC] . DIRECTED Care 12/30/17 16:44 Ordered EKG Documentation Completion [RC] STAT Care 12/30/17 14:29 Active Intake and Output [RC] ASDIRECTED Care 12/30/17 16:44 Ordered Telemetry Monitoring [Cardiac Monitoring] [RC] . Care 12/30/17 16:05 Active DIRECTED Vital Signs [RC] PER UNIT ROUTINE Care 12/30/17 16:44 Ordered Heart Healthy Diet [DIET] Diet 12/31/17 Breakfast Ordered BASIC METABOLIC PANEL,BMP [CHEM] AM Lab 12/31/17 05:11 Ordered CBC WITH AUTO DIFF [HEME] AM Lab 12/31/17 05:11 Ordered TROPONIN I [CHEM] Stat Lab 12/30/17 22:30 Ordered TROPONIN I [CHEM] Stat Lab 12/31/17 06:30 Ordered Acetaminophen [Tylenol] Med 12/30/17 16:46 Ordered 650 mg PO Q4H PRN Aspirin [Halfprin] Med 12/31/17 09:00 Ordered 81 mg PO DAILY Carvedilol [Coreg] Med 12/30/17 21:00 Ordered 3.125 mg PO BID Clopidogrel [Plavix] Med 12/31/17 09:00 Ordered 75 mg PO DAILY Isosorbide Mononitrate [Imdur] Med 12/31/17 09:00 Ordered 30 mg PO DAILY Nitroglycerin [Nitrostat] Med 12/30/17 16:44 Ordered 0.4 mg SL Q5M PRN Ondansetron [Zofran] Med 12/30/17 16:46 Ordered 4 mg IVPUSH Q4H PRN PARoxetine [Paxil] Med 12/31/17 09:00 Ordered 10 mg PO DAILY Pantoprazole [ProTONIX] Med 12/31/17 07:30 Ordered 40 mg PO ACBREAKFAST Pravastatin [Pravachol] Med 12/31/17 09:00 Ordered 40 mg PO DAILY SCD [Sequential Compression Device] [OM.PC] Routine Oth 12/30/17 16:49 Ordered Resuscitation Status Stat Resus Stat 12/30/17 16:47 Ordered Medication Orders Acetaminophen (Tylenol) 650 mg PO Q4H PRN PRN Reason: Pain (Mild 1-3)/fever Aspirin (Halfprin) 81 mg PO DAILY [facility] Carvedilol (Coreg) 3.125 mg PO BID [facility] Clopidogrel Bisulfate (Plavix) 75 mg PO DAILY [facility] Isosorbide Mononitrate (Imdur) 30 mg PO DAILY [facility] Nitroglycerin (Nitrostat) 0.4 mg SL Q5M PRN PRN Reason: Chest Pain Ondansetron HCl (Zofran) 4 mg IVPUSH Q4H PRN PRN Reason: Nausea/Vomiting Pantoprazole Sodium (Protonix) 40 mg PO ACBREAKFAST [facility] Paroxetine HCl (Paxil) 10 mg PO DAILY [facility] Pravastatin Sodium (Pravachol) 40 mg PO DAILY [facility] Assessment/Plan Comment:: 1. admit for observation 2. Code Status- full 3. Vitals per routine 4. I/Os per routine 5. Diet- heart healthy 6. DVT prophylaxis- SCDs 7. Chest pain, ACS rule out- initial troponin was negative, will trend q8 for total of 3x. Will place patient on telemetry. Will try Tylenol since the chest is tender to palpation, there could be MSK component to his pain. Nitro will be available. 8. Chronic normocytic anemia- continue to monitor. 9. PMH- HTN, Hyperlipidemia, Depression/Anxiety- continue home meds
[2017-12-30] MEDS: Acetaminophen 325 MG Tab PO PRN (17:59)
[2017-12-30] MEDS: Carvedilol 3.125 MG Tab PO SCH (21:02)
[2017-12-31] MEDS: Acetaminophen 325 MG Tab PO PRN ×3 (03:13→18:42)
[2017-12-31] MEDS ORDERED: levETIRAcetam 500 MG Tab PO STA (06:39)
[2017-12-31 07:33] LABS: CHLORIDE,CL 105 mmol/L (98-107); SODIUM,NA 141 mmol/L (136-148)
[2017-12-31] MEDS: PARoxetine 20 MG Tab PO SCH (08:20)
[2017-12-31] MEDS: Carvedilol 3.125 MG Tab PO SCH ×2 (08:20→20:30)
[2017-12-31] MEDS: Pantoprazole 40 MG Tab.CR PO SCH (08:20)
[2017-12-31] MEDS: Aspirin 81 MG Tab.EC PO SCH (08:20)
[2017-12-31] MEDS: Clopidogrel 75 MG Tab PO SCH (08:20)
[2017-12-31] MEDS: Isosorbide Mononitrate 30 MG Tab.ER PO SCH (08:20)
--- NOTE | 2017-12-31 08:58 | PCM.PN ---
- General Info Date of Service: 12/31/17 Subjective Update: The patient is a 72 year old male who was originally admitted for chest pain, ACS rule out. His troponins were negative x 3 and his pain was relieved with tylenol. This morning, the mobile electronics installer called a rapid response when she found him having a seizure. The seizure lasted 1-1.5 minutes. The patient came out of it pretty fast and was alert and oriented x 3. At the time vitals were 147/ 92, 86, 98% RA, BG 90, lactate 0.9, and prolactin was elevated. An EKG was done that showed sinus rhythm, PVC, and borderline IVCD. A CT head was ordered but the patient refused due to claustrophobia. The patient has no history of seizure. He was given keppra this morning. - Review of Systems General: Reports: No Symptoms HEENT: Reports: No Symptoms Pulmonary: Reports: No Symptoms Cardiovascular: Reports: Chest Pain (improved with tylenol) Gastrointestinal: Reports: No Symptoms Genitourinary: Reports: No Symptoms Musculoskeletal: Reports: No Symptoms Skin: Reports: No Symptoms Neurological: Reports: Seizure Psychiatric: Reports: No Symptoms - Patient Data Vitals - Most Recent: Last Vital Signs Temp 97.5 F 12/31/17 08:00 Pulse 75 12/31/17 08:00 Resp 18 12/31/17 08:00 BP 152/97 H 12/31/17 08:00 Pulse Ox 98 12/31/17 08:00 Weight - Most Recent: 65.771 kg I&O - Last 24 Hours: Intake & Output 12/30/17 12/31/17 12/31/17 22:59 06:59 14:59 Intake Total 300 Output Total 900 Balance -600 Lab Results Last 24 Hours: Laboratory Results - last 24 hr 12/30/17 12/30/17 12/30/17 Range/Units 14:37 14:37 22:25 WBC 5.59 (4.0-11.0) K/uL RBC 4.28 L (4.50-5.90) M/uL Hgb 12.2 L (13.0-17.0) g/dL Hct 36.6 L (38.0-50.0) % MCV 85.5 (80.0-98.0) fL MCH 28.5 (27.0-32.0) pg MCHC 33.3 (31.0-37.0) g/dL RDW Std Deviation 46.1 (28.0-62.0) fl RDW Coeff of Ethan 15 (11.0-15.0) % Plt Count 264 (150-400) K/uL MPV 9.30 (7.40-12.00) fL Neut % (Auto) 56.9 (48.0-80.0) % Lymph % (Auto) 28.4 (16.0-40.0) % [place] % (Auto) 13.1 (0.0-15.0) % Eos % (Auto) 1.4 (0.0-7.0) % Baso % (Auto) 0.2 (0.0-1.5) % Neut # (Auto) 3.2 (1.4-5.7) K/uL Lymph # (Auto) 1.6 (0.6-2.4) K/uL [place] # (Auto) 0.7 (0.0-0.8) K/uL Eos # (Auto) 0.1 (0.0-0.7) K/uL Baso # (Auto) 0.0 (0.0-0.1) K/uL Nucleated RBC % 0.0 /100WBC Nucleated RBCs # 0 K/uL Lactate (0.20-2.00) mmol/L Sodium 141 (136-148) mmol/L Potassium 3.7 (3.5-5.1) mmol/L Chloride 103 (98-107) mmol/L Carbon Dioxide 26.2 (21.0-32.0) mmol/L BUN 15 (7.0-18.0) mg/dL Creatinine 0.9 (0.8-1.3) mg/dL Est Cr Clr Drug Dosing 71.05 mL/min Estimated GFR (MDRD) > 60.0 ml/min Glucose 117 H (74-106) mg/dL POC Glucose (60-110) mg/dL Calcium 9.3 (8.5-10.1) mg/dL Total Bilirubin 0.5 (0.2-1.0) mg/dL AST 15 (15-37) IU/L ALT 18 (14-63) IU/L Alkaline Phosphatase 72 (46-116) U/L Troponin I < 0.050 < 0.050 (0.000-0.056) ng/mL Total Protein 7.6 (6.4-8.2) g/dL Albumin 4.0 (3.4-5.0) g/dL Globulin 3.6 H (2.0-3.5) g/dL Albumin/Globulin Ratio 1.1 L (1.3-2.8) Prolactin (1-23) ng/mL 12/31/17 12/31/17 12/31/17 Range/Units 06:29 06:53 06:53 WBC 5.42 (4.0-11.0) K/uL RBC 4.45 L (4.50-5.90) M/uL Hgb 12.6 L (13.0-17.0) g/dL Hct 38.4 (38.0-50.0) % MCV 86.3 (80.0-98.0) fL MCH 28.3 (27.0-32.0) pg MCHC 32.8 (31.0-37.0) g/dL RDW Std Deviation 46.8 (28.0-62.0) fl RDW Coeff of Ethan 15 (11.0-15.0) % Plt Count 240 (150-400) K/uL MPV 9.40 (7.40-12.00) fL Neut % (Auto) 54.9 (48.0-80.0) % Lymph % (Auto) 30.3 (16.0-40.0) % [place] % (Auto) 12.9 (0.0-15.0) % Eos % (Auto) 1.7 (0.0-7.0) % Baso % (Auto) 0.2 (0.0-1.5) % Neut # (Auto) 3.0 (1.4-5.7) K/uL Lymph # (Auto) 1.6 (0.6-2.4) K/uL [place] # (Auto) 0.7 (0.0-0.8) K/uL Eos # (Auto) 0.1 (0.0-0.7) K/uL Baso # (Auto) 0.0 (0.0-0.1) K/uL Nucleated RBC % 0.0 /100WBC Nucleated RBCs # 0 K/uL Lactate (0.20-2.00) mmol/L Sodium (136-148) mmol/L Potassium (3.5-5.1) mmol/L Chloride (98-107) mmol/L Carbon Dioxide (21.0-32.0) mmol/L BUN (7.0-18.0) mg/dL Creatinine (0.8-1.3) mg/dL Est Cr Clr Drug Dosing mL/min Estimated GFR (MDRD) ml/min Glucose (74-106) mg/dL POC Glucose 95 (60-110) mg/dL Calcium (8.5-10.1) mg/dL Total Bilirubin (0.2-1.0) mg/dL AST (15-37) IU/L ALT (14-63) IU/L Alkaline Phosphatase (46-116) U/L Troponin I < 0.050 (0.000-0.056) ng/mL Total Protein (6.4-8.2) g/dL Albumin (3.4-5.0) g/dL Globulin (2.0-3.5) g/dL Albumin/Globulin Ratio (1.3-2.8) Prolactin (1-23) ng/mL 12/31/17 12/31/17 12/31/17 Range/Units 06:53 06:53 06:53 WBC (4.0-11.0) K/uL RBC (4.50-5.90) M/uL Hgb (13.0-17.0) g/dL Hct (38.0-50.0) % MCV (80.0-98.0) fL MCH (27.0-32.0) pg MCHC (31.0-37.0) g/dL RDW Std Deviation (28.0-62.0) fl RDW Coeff of Ethan (11.0-15.0) % Plt Count (150-400) K/uL MPV (7.40-12.00) fL Neut % (Auto) (48.0-80.0) % Lymph % (Auto) (16.0-40.0) % [place] % (Auto) (0.0-15.0) % Eos % (Auto) (0.0-7.0) % Baso % (Auto) (0.0-1.5) % Neut # (Auto) (1.4-5.7) K/uL Lymph # (Auto) (0.6-2.4) K/uL [place] # (Auto) (0.0-0.8) K/uL Eos # (Auto) (0.0-0.7) K/uL Baso # (Auto) (0.0-0.1) K/uL Nucleated RBC % /100WBC Nucleated RBCs # K/uL Lactate 0.9 (0.20-2.00) mmol/L Sodium 141 (136-148) mmol/L Potassium 3.6 (3.5-5.1) mmol/L Chloride 105 (98-107) mmol/L Carbon Dioxide 27.8 (21.0-32.0) mmol/L BUN 13 (7.0-18.0) mg/dL Creatinine 0.9 (0.8-1.3) mg/dL Est Cr Clr Drug Dosing 71.05 mL/min Estimated GFR (MDRD) > 60.0 ml/min Glucose 117 H (74-106) mg/dL POC Glucose (60-110) mg/dL Calcium 9.6 (8.5-10.1) mg/dL Total Bilirubin (0.2-1.0) mg/dL AST (15-37) IU/L ALT (14-63) IU/L Alkaline Phosphatase (46-116) U/L Troponin I (0.000-0.056) ng/mL Total Protein (6.4-8.2) g/dL Albumin (3.4-5.0) g/dL Globulin (2.0-3.5) g/dL Albumin/Globulin Ratio (1.3-2.8) Prolactin 32 H (1-23) ng/mL Med Orders - Current: Current Medications Acetaminophen (Tylenol) 650 mg PO Q4H PRN PRN Reason: Pain (Mild 1-3)/fever Last Admin: 12/31/17 03:13 Dose: 650 mg Aspirin (Halfprin) 81 mg PO DAILY [facility] Last Admin: 12/31/17 08:20 Dose: 81 mg Carvedilol (Coreg) 3.125 mg PO BID [facility] Last Admin: 12/31/17 08:20 Dose: 3.125 mg Clopidogrel Bisulfate (Plavix) 75 mg PO DAILY [facility] Last Admin: 12/31/17 08:20 Dose: 75 mg Isosorbide Mononitrate (Imdur) 30 mg PO DAILY [facility] Last Admin: 12/31/17 08:20 Dose: 30 mg Nitroglycerin (Nitrostat) 0.4 mg SL Q5M PRN PRN Reason: Chest Pain Ondansetron HCl (Zofran) 4 mg IVPUSH Q4H PRN PRN Reason: Nausea/Vomiting Pantoprazole Sodium (Protonix) 40 mg PO ACBREAKFAST [facility] Last Admin: 12/31/17 08:20 Dose: 40 mg Paroxetine HCl (Paxil) 10 mg PO DAILY [facility] Last Admin: 12/31/17 08:20 Dose: 10 mg Pravastatin Sodium (Pravachol) 40 mg PO BEDTIME [facility] Discontinued Medications Aspirin (Aspirin) 324 mg PO ONETIME ONE Stop: 12/30/17 14:30 Last Admin: 12/30/17 14:53 Dose: 324 mg Enoxaparin Sodium (Lovenox) 40 mg SUBCUT Q24H [facility] Last Admin: 12/31/17 03:12 Dose: Not Given Sodium Chloride (Normal Saline) 1,000 mls @ 999 mls/hr IV STAT ONE Stop: 12/30/17 15:29 Last Admin: 12/30/17 14:53 Dose: 999 mls/hr Levetiracetam (Keppra) 500 mg PO NOW STA Stop: 12/31/17 06:40 Last Admin: 12/31/17 08:20 Dose: 500 mg Morphine Sulfate (Morphine) 2 mg IVPUSH ONETIME ONE Stop: 12/30/17 15:07 Last Admin: 12/30/17 15:10 Dose: 2 mg Nitroglycerin (Nitrostat) 0.4 mg SL Q5M PRN PRN Reason: Chest Pain Last Admin: 12/30/17 15:03 Dose: 0.4 mg - Exam General: Alert, Oriented, Cooperative HEENT: Pupils Equal, Pupils Reactive, EOMI Lungs: Clear to Auscultation, Normal Respiratory Effort Cardiovascular: Regular Rate, Regular Rhythm GI/Abdominal Exam: Normal Bowel Sounds, Soft, Non-Tender, No Distention Extremities: Normal Inspection, No Pedal Edema Skin: Warm, Dry, Intact Neurological: No New Focal Deficit, Normal Speech, Normal Tone, Strength Equal Bilateral, Cranial Nerves Intact Psy/Mental Status: Normal Affect, Normal Mood - Problem List Review Problem List Initiated/Reviewed/Updated: Yes - My Orders Last 24 Hours: My Active Orders 12/30/17 16:44 Cardiac Monitoring [RC] Q8H Intake and Output [RC] ASDIRECTED Vital Signs [RC] PER UNIT ROUTINE Nitroglycerin [Nitrostat] 0.4 mg SL Q5M PRN 12/30/17 16:46 Acetaminophen [Tylenol] 650 mg PO Q4H PRN Ondansetron [Zofran] 4 mg IVPUSH Q4H PRN 12/30/17 16:47 Resuscitation Status Stat 12/30/17 16:49 SCD [Sequential Compression Device] [OM.PC] Routine 12/30/17 21:00 Carvedilol [Coreg] 3.125 mg PO BID 12/31/17 07:30 Pantoprazole [ProTONIX] 40 mg PO ACBREAKFAST 12/31/17 09:00 Aspirin [Halfprin] 81 mg PO DAILY Clopidogrel [Plavix] 75 mg PO DAILY Isos[facility] Mononitrate [Imdur] 30 mg PO DAILY PARoxetine [Paxil] 10 mg PO DAILY 12/31/17 21:00 Pravastatin [Pravachol] 40 mg PO BEDTIME 12/31/17 Breakfast Heart Healthy Diet [DIET] - Plan Plan:: 1. New onset seizure- will keep him overnight to monitor for additional seizures. prolactin was elevated. Patient refused CT head. Continue Keppra. Outpatient follow up with neurology on discharge. 2. Chest pain, ACS rulef out- initial troponin was negative x 3. No events on telemetry. Tylenol improved his pain, suggesting chest pain is MSK. 3. Chronic normocytic anemia- stable 4. PMH- HTN, Hyperlipidemia, Depression/Anxiety- continue home meds
[2017-12-31] MEDS: levETIRAcetam 500 MG Tab PO SCH ×2 (14:25→21:17)
[2017-12-31] MEDS ORDERED: Pravastatin 40 MG Tab PO SCH (21:00)
[2018-01-01] MEDS: Acetaminophen 325 MG Tab PO PRN (02:29)
[2018-01-01 06:30] LABS: CHLORIDE,CL 105 mmol/L (98-107); SODIUM,NA 141 mmol/L (136-148)
[2018-01-01] MEDS: Pantoprazole 40 MG Tab.CR PO SCH (06:43)
[2018-01-01] MEDS: Isosorbide Mononitrate 30 MG Tab.ER PO SCH (09:46)
[2018-01-01] MEDS: Clopidogrel 75 MG Tab PO SCH (09:47)
[2018-01-01] MEDS: levETIRAcetam 500 MG Tab PO SCH (09:47)
[2018-01-01] MEDS: Aspirin 81 MG Tab.EC PO SCH (09:48)
[2018-01-01] MEDS: Carvedilol 3.125 MG Tab PO SCH (09:48)
[2018-01-01] MEDS: PARoxetine 20 MG Tab PO SCH (09:48)
[2018-01-01 09:56] VITALS: BP 108/78
--- NOTE | 2018-01-01 11:25 | PCM.DCSUM1 ---
Discharge Summary - Hospital Course Free Text/Narrative:: He was admitted with chest pain. He has a known prior history of CAD and sees DR Fay as an outpatient. - Discharge Data Discharge Date: 01/01/18 Discharge Disposition: Home, Self-Care 01 Condition: Fair - Patient Summary/Data Hospital Course: He was noted to have chest pain reproducible with anterior chest wall palpation. Troponins x three were negative. During the hospital course he was observed by nursing staff to have a generalized tonic clonic seizure type activity lasting about one minute. There was , reportedly, no clear post ictal period. However, he did have an elevated prolactic after the episode. He had amnesia for the event. He refused any brain imaging stating that he has claustrophobia. He declines receiving medication such as ativan to allow imaging. He was started on keppra and recommended outpatient follow up with neurology. I advised him regarding the possibility of a brain tumor as an etiology of a seizure and he voiced understanding. He feels ready for discharge on the day of discharge and will be going home where he resides with his . follow up with Dr Blunt and with Dr Fay will be arranged. - Discharge Plan Home Medications: Home Meds Carvedilol 3.125 mg PO BID 09/22/16 [History] Isosorbide Mononitrate [Imdur] 30 mg PO DAILY 09/22/16 [History] Pantoprazole [ProTONIX] 40 mg PO ACBREAKFAST 09/22/16 [History] Pravastatin [Pravachol] 40 mg PO DAILY 09/22/16 [History] Clopidogrel [Plavix] 75 mg PO DAILY 04/19/17 [History] Nabumetone 500 mg PO BIDMEALS PRN 04/19/17 [History] PARoxetine [Paxil] 10 mg PO DAILY 04/19/17 [History] traMADol HCl [Tramadol HCl] 50 mg PO TID PRN 04/19/17 [History] Aspirin [Halfprin] 81 mg PO DAILY #0 tab.ec 04/20/17 [Rx] oxyCODONE HCl/Acetaminophen [oxyCODONE-Acetaminophen 5-325] 1 tab PO Q6H PRN 7 Days #28 tablet 05/04/17 [Rx] Patient Handouts: Nonspecific Chest Pain, [id number], Seizure, Adult, Easy-to -Read Referrals: Bo Lopez MD [Physician] - Manisha Watson MD [Physician] - Vernell Donovan MD [Physician] - - Patient Data Vitals - Most Recent: Last Vital Signs Temp 97.5 F 01/01/18 08:00 Pulse 68 01/01/18 08:00 Resp 16 01/01/18 08:00 BP 108/78 01/01/18 08:00 Pulse Ox 98 01/01/18 08:00 Weight - Most Recent: 65.771 kg I&O - Last 24 hours: Intake & Output 12/31/17 01/01/18 01/01/18 22:59 06:59 14:59 Intake Total 1220 800 Output Total 1550 500 Balance -330 300 Lab Results - Last 24 hrs: Laboratory Results - last 24 hr 12/31/17 01/01/18 01/01/18 Range/Units 06:50 05:52 05:52 WBC 5.15 (4.0-11.0) K/uL RBC 4.25 L (4.50-5.90) M/uL Hgb 12.0 L (13.0-17.0) g/dL Hct 36.7 L (38.0-50.0) % MCV 86.4 (80.0-98.0) fL MCH 28.2 (27.0-32.0) pg MCHC 32.7 (31.0-37.0) g/dL RDW Std Deviation 45.9 (28.0-62.0) fl RDW Coeff of Ethan 15 (11.0-15.0) % Plt Count 231 (150-400) K/uL MPV 9.70 (7.40-12.00) fL Neut % (Auto) 53.3 (48.0-80.0) % Lymph % (Auto) 31.1 (16.0-40.0) % [place] % (Auto) 11.3 (0.0-15.0) % Eos % (Auto) 4.1 (0.0-7.0) % Baso % (Auto) 0.2 (0.0-1.5) % Neut # (Auto) 2.8 (1.4-5.7) K/uL Lymph # (Auto) 1.6 (0.6-2.4) K/uL [place] # (Auto) 0.6 (0.0-0.8) K/uL Eos # (Auto) 0.2 (0.0-0.7) K/uL Baso # (Auto) 0.0 (0.0-0.1) K/uL Nucleated RBC % 0.0 /100WBC Nucleated RBCs # 0 K/uL Sodium 141 (136-148) mmol/L Potassium 4.3 (3.5-5.1) mmol/L Chloride 105 (98-107) mmol/L Carbon Dioxide 28.9 (21.0-32.0) mmol/L BUN 21 H (7.0-18.0) mg/dL Creatinine 1.0 (0.8-1.3) mg/dL Est Cr Clr Drug Dosing 63.94 mL/min Estimated GFR (MDRD) > 60.0 ml/min Glucose 116 H (74-106) mg/dL Calcium 9.2 (8.5-10.1) mg/dL Magnesium 2.1 (1.8-2.4) mg/dL Med Orders - Current: Current Medications Acetaminophen (Tylenol) 650 mg PO Q4H PRN PRN Reason: Pain (Mild 1-3)/fever Last Admin: 01/01/18 02:29 Dose: 650 mg Aspirin (Halfprin) 81 mg PO DAILY [facility] Last Admin: 01/01/18 09:48 Dose: 81 mg Carvedilol (Coreg) 3.125 mg PO BID [facility] Last Admin: 01/01/18 09:48 Dose: 3.125 mg Clopidogrel Bisulfate (Plavix) 75 mg PO DAILY [facility] Last Admin: 01/01/18 09:47 Dose: 75 mg Isosorbide Mononitrate (Imdur) 30 mg PO DAILY [facility] Last Admin: 01/01/18 09:46 Dose: 30 mg Levetiracetam (Keppra) 500 mg PO BID [facility] Last Admin: 01/01/18 09:47 Dose: 500 mg Nitroglycerin (Nitrostat) 0.4 mg SL Q5M PRN PRN Reason: Chest Pain Ondansetron HCl (Zofran) 4 mg IVPUSH Q4H PRN PRN Reason: Nausea/Vomiting Pantoprazole Sodium (Protonix) 40 mg PO ACBREAKFAST [facility] Last Admin: 01/01/18 06:43 Dose: 40 mg Paroxetine HCl (Paxil) 10 mg PO DAILY ERICK Last Admin: 01/01/18 09:48 Dose: 10 mg Pravastatin Sodium (Pravachol) 40 mg PO BEDTIME ERICK Last Admin: 12/31/17 20:26 Dose: 40 mg Discontinued Medications Aspirin (Aspirin) 324 mg PO ONETIME ONE Stop: 12/30/17 14:30 Last Admin: 12/30/17 14:53 Dose: 324 mg Enoxaparin Sodium (Lovenox) 40 mg SUBCUT Q24H ERICK Last Admin: 12/31/17 03:12 Dose: Not Given Sodium Chloride (Normal Saline) 1,000 mls @ 999 mls/hr IV STAT ONE Stop: 12/30/17 15:29 Last Admin: 12/30/17 14:53 Dose: 999 mls/hr Levetiracetam (Keppra) 500 mg PO NOW STA Stop: 12/31/17 06:40 Last Admin: 12/31/17 08:20 Dose: 500 mg Morphine Sulfate (Morphine) 2 mg IVPUSH ONETIME ONE Stop: 12/30/17 15:07 Last Admin: 12/30/17 15:10 Dose: 2 mg Nitroglycerin (Nitrostat) 0.4 mg SL Q5M PRN PRN Reason: Chest Pain Last Admin: 12/30/17 15:03 Dose: 0.4 mg
== END 2018-01-01 12:35 | disposition home or self-care (01) ==
LOC: MW.ED 14:25 → MW.MS 16:06
PROVIDERS: ADMIT Internal Medicine; ATTEND Internal Medicine
DX: R07.2 Precordial pain (principal); G40.309 Generalized idiopathic epilepsy and epileptic syndromes, not intractable, without status epilepticus; D64.9 Anemia, unspecified; I10 Essential (primary) hypertension; E78.5 Hyperlipidemia, unspecified; F41.9 Anxiety disorder, unspecified; F32.9 Major depressive disorder, single episode, unspecified; I25.2 Old myocardial infarction; Z79.899 Other long term (current) drug therapy
CPT/HCPCS: 36415; 71045; 80048; 80053; 82962; 83605; 83735; 84146; 84484; 85025; 93005; 96361; 96374; 99285; A9270; J2270; J7040; G0378

== ENCOUNTER 2018-05-04 20:48 | Emergency (ER) | payer MEDICAID, MEDICARE ==
--- NOTE | 2018-05-04 20:54 | EDM.PDOC ---
ED HPI GENERAL MEDICAL PROBLEM - General Chief Complaint: Head Injury Stated Complaint: TRAUMA Time Seen by Provider: 05/04/18 20:54 Source of Information: Reports: Patient - History of Present Illness INITIAL COMMENTS - FREE TEXT/NARRATIVE: HISTORY AND PHYSICAL: History of present illness: [Patient fell in his home around 6 PM he complains of head pain, on exam he has neck pain although he refuses cervical collar, patient feels he may have lost consciousness this is uncertain He arrives via EMS alert GCS 15 ] No fever nausea vomiting chills sweats no chest pain shortness breath dizziness or palpitation no bowel or urine symptoms Patient has remained alert during his stay here at the emergency room he has had no problems he declines providing a urine sample night and prefers to go home all his findings are normal will test him on his feet and plan for discharge Review of systems: As per history of present illness and below otherwise all systems reviewed and negative. Past medical history: As per history of present illness and as reviewed below otherwise noncontributory. Surgical history: As per history of present illness and as reviewed below otherwise noncontributory. Social history: No reported history of drug or alcohol abuse. Family history: As per history of present illness and as reviewed below otherwise noncontributory. Physical exam: HEENT: Atraumatic, normocephalic, pupils reactive, negative for conjunctival pallor or scleral icterus, mucous membranes moist, throat clear, neck supple, nontender, trachea midline. Lungs: Clear to auscultation, breath sounds equal bilaterally, chest nontender. Heart: S1S2, regular, negative for clicks, rubs, or JVD. Abdomen: Soft, nondistended, nontender. Negative for masses or hepatosplenomegaly. Negative for costovertebral tenderness. Pelvis: Stable nontender. Genitourinary: Deferred. Rectal: Deferred. Extremities: Atraumatic, negative for cords or calf pain. Neurovascular unremarkable. Neuro: Awake, alert, oriented. Cranial nerves II through XII unremarkable. Cerebellum unremarkable. Motor and sensory unremarkable throughout. Exam nonfocal. Diagnostics: []CBC CMP troponin INR UA EKG Chest 1 view Pelvis [address] no contrast cervical spine no contrast Therapeutics: []Wendell and tab by mouth now Tramadol Impression: [] fall in the home Possible concussion Medical screening exam Definitive disposition and diagnosis as appropriate pending reevaluation and review of above. Head Pain Score (Numeric/FACES): 10 - Related Data Allergies Allergy/AdvReac Type Severity Reaction Status Date / Time No Known Allergies Allergy Verified 05/03/18 13:04 Home Meds: Home Meds Carvedilol 3.125 mg PO BID 09/22/16 [History] Isosorbide Mononitrate [Imdur] 30 mg PO DAILY 09/22/16 [History] Pantoprazole [ProTONIX] 40 mg PO ACBREAKFAST 09/22/16 [History] Pravastatin [Pravachol] 40 mg PO BEDTIME 09/22/16 [History] Clopidogrel [Plavix] 75 mg PO DAILY 04/19/17 [History] PARoxetine [Paxil] 10 mg PO DAILY 04/19/17 [History] Aspirin [Halfprin] 81 mg PO DAILY #0 tab.ec 04/20/17 [Rx] Meloxicam [Mobic] 15 mg PO WITHBREAKFAST 03/07/18 [History] Nitroglycerin [Nitrostat] 0.4 mg SL Q5M PRN MDD 3 03/07/18 [History] levETIRAcetam [Levetiracetam ER] 750 mg PO BEDTIME 03/07/18 [History] Past Medical History - Past Health History Medical/Surgical History: Denies Medical/Surgical History HEENT History: Reports: Other (See Below) Other HEENT History: uses reading glasses Cardiovascular History: Reports: CAD, High Cholesterol, Hypertension, ID, Stents , Other (See Below) Other Cardiovascular History: ID in 2009 Respiratory History: Reports: None Gastrointestinal History: Reports: GERD Genitourinary History: Reports: None Musculoskeletal History: Reports: None Neurological History: Reports: Vertigo, Other (See Below) Other Neuro History: hx of Claustrophobia Psychiatric History: Reports: Anxiety, Depression, Other (See Below) 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, Type II Hematologic History: Reports: Anticoagulation Therapy Immunologic History: Reports: None Oncologic (Cancer) History: Reports: None Dermatologic History: Reports: None - Infectious Disease History Infectious Disease History: Reports: None - Past Surgical History HEENT Surgical History: Reports: Oral Surgery, Tonsillectomy, Other (See Below) GI Surgical History: Reports: Appendectomy Social & Family History - Family History Family Medical History: Noncontributory Cardiac: Reports: ID Respiratory: Reports: None Endocrine/Metabolic: Reports: Diabetes, Type I Hematologic: Reports: None Oncologic: Reports: Other (See Below) Other Oncologic Family History: Father side has cancer but patient doesn't know exactly what kind of CA - Caffeine Use Caffeine Use: Reports: Coffee Caffeine Use Comment: daily - Living Situation & Occupation Living situation: Reports: Occupation: Retired ED ROS GENERAL - Review of Systems Review Of Systems: See Below ED EXAM, HEAD INJURY - Physical Exam Exam: See Below Course - Vital Signs Last Recorded V/S: Last Vital Signs Temp 98.1 F 05/04/18 21:10 Pulse 81 05/04/18 21:10 Resp BP 155/94 H 05/04/18 21:10 Pulse Ox 98 05/04/18 21:10 - Orders/Labs/Meds Orders: Active Orders 24 hr Category Date Time Status Head wo Cont [CT] Stat Exams 05/04/18 20:53 Taken UA RFX GARCIA AND CULT IF INDIC [URIN] Stat Lab 05/04/18 20:53 Ordered Labs: Laboratory Tests 05/04/18 05/04/18 05/04/18 Range/Units 21:28 21:28 21:28 WBC 5.16 (4.0-11.0) K/uL RBC 4.05 L (4.50-5.90) M/uL Hgb 11.4 L (13.0-17.0) g/dL Hct 34.9 L (38.0-50.0) % MCV 86.2 (80.0-98.0) fL MCH 28.1 (27.0-32.0) pg MCHC 32.7 (31.0-37.0) g/dL RDW Std Deviation 48.3 (28.0-62.0) fl RDW Coeff of Ethan 15 (11.0-15.0) % Plt Count 215 (150-400) K/uL MPV 9.50 (7.40-12.00) fL Neut % (Auto) 55.4 (48.0-80.0) % Lymph % (Auto) 28.5 (16.0-40.0) % [place] % (Auto) 12.8 (0.0-15.0) % Eos % (Auto) 3.1 (0.0-7.0) % Baso % (Auto) 0.2 (0.0-1.5) % Neut # (Auto) 2.9 (1.4-5.7) K/uL Lymph # (Auto) 1.5 (0.6-2.4) K/uL [place] # (Auto) 0.7 (0.0-0.8) K/uL Eos # (Auto) 0.2 (0.0-0.7) K/uL Baso # (Auto) 0.0 (0.0-0.1) K/uL Nucleated RBC % 0.0 /100WBC Nucleated RBCs # 0 K/uL INR 0.99 Sodium 144 (136-148) mmol/L Potassium 3.2 L (3.5-5.1) mmol/L Chloride 108 H (98-107) mmol/L Carbon Dioxide 28.9 (21.0-32.0) mmol/L BUN 23 H (7.0-18.0) mg/dL Creatinine 1.1 (0.8-1.3) mg/dL Est Cr Clr Drug Dosing 58.42 mL/min Estimated GFR (MDRD) > 60.0 ml/min Glucose 124 H (74-106) mg/dL Calcium 9.0 (8.5-10.1) mg/dL Total Bilirubin 0.2 (0.2-1.0) mg/dL AST 13 L (15-37) IU/L ALT 12 L (14-63) IU/L Alkaline Phosphatase 80 (46-116) U/L Troponin I < 0.050 (0.000-0.056) ng/mL Total Protein 7.0 (6.4-8.2) g/dL Albumin 3.6 (3.4-5.0) g/dL Globulin 3.4 (2.6-4.0) g/dL Albumin/Globulin Ratio 1.1 (0.9-1.6) Meds: Medications Discontinued Medications Generic Name Dose Route Start Last Admin Trade Name Freq PRN Reason Stop Dose Admin Hydrocodone Bitart/Acetaminophen 1 tab 05/04/18 22:08 05/04/18 22:14 Wendell 325-5 Mg PO 05/04/18 22:09 1 tab ONETIME ONE Administration Departure - Departure Time of Disposition: 22:27 Disposition: Home, Self-Care 01 Condition: Good Clinical Impression: Encounter for medical screening examination - Discharge Information Referrals: PCP,None [Primary Care Provider] - Forms: ED Department Discharge Additional Instructions: The following information is given to patients seen in the emergency department who are being discharged to home. This information is to outline your options for follow-up care. We provide all patients seen in our emergency department with a follow-up referral. The need for follow-up, as well as the timing and circumstances, are variable depending upon the specifics of your emergency department visit. If you don't have a primary care physician on staff, we will provide you with a referral. We always advise you to contact your personal physician following an emergency department visit to inform them of the circumstance of the visit and for follow-up with them and/or the need for any referrals to a consulting specialist. The emergency department will also refer you to a specialist when appropriate. This referral assures that you have the opportunity for follow-up care with a specialist. All of these measure are taken in an effort to provide you with optimal care, which includes your follow-up. Under all circumstances we always encourage you to contact your private physician who remains a resource for coordinating your care. When calling for follow-up care, please make the office aware that this follow-up is from your recent emergency room visit. If for any reason you are refused follow-up, please contact the [facility] emergency department at and asked to speak to the emergency department charge nurse. - My Orders Last 24 Hours: My Active Orders 05/04/18 20:53 Head wo Cont [CT] Stat UA RFX GARCIA AND CULT IF INDIC [URIN] Stat - Assessment/Plan Last 24 Hours: My Active Orders 05/04/18 20:53 Head wo Cont [CT] Stat UA RFX GARCIA AND CULT IF INDIC [URIN] Stat
[2018-05-04 21:17] VITALS: BP 155/94
--- NOTE | 2018-05-04 21:31 | CR ---
Indication: Fall. Technique: An AP view of the pelvis was obtained. Comparison: March 22, 2018. Findings: Both femoral heads are seated within the acetabula. Degenerative changes of both hips and the lower lumbar spine are identified. No acute fracture or subluxation is identified. Impression: Degenerative change. Dictated by Ashlee Patel MD @ May 04 2018 9:29PM Signed by Dr. Ashlee Patel @ May 04 2018 9:30PM
--- NOTE | 2018-05-04 21:31 | CR ---
Indication: Fall. Technique: A single AP portable view of the chest was obtained. Comparison: March 07, 2018. Findings: The heart is normal in size. The lungs are clear. No infiltrate, pleural effusion, or pneumothorax is identified. Impression: No acute cardiopulmonary process Dictated by Ashlee Patel MD @ May 04 2018 9:29PM Signed by Dr. Ashlee Patel @ May 04 2018 9:29PM
--- NOTE | 2018-05-04 21:40 | CT ---
INDICATION: Fall TECHNIQUE: CT cervical spine without contrast. COMPARISON: 03/24/2018 FINDINGS: Vertebral alignment: Alignment is normal. Vertebrae: There are no fractures or suspicious bony lesions. Discs and facet joints: Disc spaces and facets are within normal limits. Extraspinal findings: Prevertebral soft tissues, visualized airway, and visualized lungs are unremarkable. IMPRESSION: Unremarkable cervical spine CT. No evidence of acute cervical spine trauma. Dictated by Adrien Hurley MD @ 05/04/2018 9:37:47 PM Please note that all CT scans at this facility use dose modulation, iterative reconstruction, and/or weight-based dosing when appropriate to reduce radiation dose to as low as reasonably achievable. Dictated by: Adrien Hurley MD @ 05/04/2018 21:38:02 (Electronically Signed)
[2018-05-04 21:58] LABS: CHLORIDE,CL 108 mmol/L (98-107); SODIUM,NA 144 mmol/L (136-148)
[2018-05-04] MEDS ORDERED: Acetaminophen/HYDROcodone 325-5 MG Tab PO ONE (22:08)
[2018-05-05] MEDS ORDERED: Propofol 200 MG/20 ML SDV ONE (07:22)
--- NOTE | 2018-05-05 12:56 | CT ---
EXAM DATE: 05/04/18 PATIENT'S AGE: 72 Patient: BERNARD BORREGO Facility: [place], [place] Site Site : [id number] Study: CT Head [id number]/[id number] 9:15:20 PM Ordering Physician: OMAR MACDONALD Final Report: INDICATION: Fall TECHNIQUE: CT head without contrast. COMPARISON: MRI brain 03/24/2018 FINDINGS: CSF spaces: Within normal limits for age. Brain parenchyma: The mitchell-white differentiation is normal. No sign of mass, hemorrhage, or midline shift. Skull base and calvarium: The visualized paranasal sinuses and mastoid air cells demonstrate no acute or significant findings. The visualized orbits are grossly unremarkable. No skull fractures. IMPRESSION: Unremarkable noncontrast head CT. Dictated by Adrien Hurley MD @ 05/04/2018 9:42:09 PM Please note that all CT scans at this facility use dose modulation, iterative reconstruction, and/or weight-based dosing when appropriate to reduce radiation dose to as low as reasonably achievable. Dictated by: Adrien Hurley MD @ 05/04/2018 21:42:15 (Electronic Signature) Report Signed by Proxy. [facility]
== END 2018-05-04 22:50 | disposition home or self-care (01) ==
LOC: MW.ED 20:48
DX: Z13.9 Encounter for screening, unspecified (principal); E11.9 Type 2 diabetes mellitus without complications; Z79.899 Other long term (current) drug therapy; Z79.82 Long term (current) use of aspirin
CPT/HCPCS: 36415; 70450; 71045; 72125; 72170; 80053; 84484; 85025; 85610; 93005; 99285; A9270

== ENCOUNTER 2018-08-11 21:10 | Observation (INO) | payer MEDICARE, OTHER ==
[2018-08-11] MEDS ORDERED: Aspirin 81 MG Tab.Chew PO ONE (21:14)
[2018-08-11] MEDS ORDERED: Sodium Chloride 0.9% 2.5 ML Syringe FLUSH PRN (21:14)
[2018-08-11] MEDS ORDERED: Sodium Chloride 0.9% 10 ML Syringe FLUSH PRN (21:14)
[2018-08-11] MEDS ORDERED: Aspirin 81 MG Tab.Chew ONE (21:17)
--- NOTE | 2018-08-11 21:17 | EDM.PDOC ---
ED HPI GENERAL MEDICAL PROBLEM - General Chief Complaint: Chest Pain Stated Complaint: CHEST PAIN Time Seen by Provider: 08/11/18 21:15 - History of Present Illness INITIAL COMMENTS - FREE TEXT/NARRATIVE: HISTORY AND PHYSICAL: History of present illness: Patient 73-year-old white male with extensive past medical history including anxiety who presents with a concern of chest pain shortness of breath this is somewhat vaguely described asassociated palpitations nausea vomiting or diaphoresis on arrival here patient does agree to an EKG but at this time is refusing any other diagnostics. Review of systems: As per history of present illness and below otherwise all systems reviewed and negative. Past medical history: As per history of present illness and as reviewed below otherwise noncontributory. Surgical history: As per history of present illness and as reviewed below otherwise noncontributory. Social history: No reported history of drug or alcohol abuse. Family history: As per history of present illness and as reviewed below otherwise noncontributory. Physical exam: HEENT: Atraumatic, normocephalic, pupils reactive, negative for conjunctival pallor or scleral icterus, mucous membranes moist, throat clear, neck supple, nontender, trachea midline. Lungs: Clear to auscultation, breath sounds equal bilaterally, chest nontender. Heart: S1S2, regular, negative for clicks, rubs, or JVD. Abdomen: Soft, nondistended, nontender. Negative for masses or hepatosplenomegaly. Negative for costovertebral tenderness. Pelvis: Stable nontender. Genitourinary: Deferred. Rectal: Deferred. Extremities: Atraumatic, negative for cords or calf pain. Neurovascular unremarkable. Neuro: Awake, alert, oriented. Cranial nerves II through XII unremarkable. Cerebellum unremarkable. Motor and sensory unremarkable throughout. Exam nonfocal. Diagnostics: CBC CMP troponin PT/INR chest x-ray EKG Therapeutics: IV O2 monitor Impression: #1 chest pain #2 anxiety #3 medical noncompliance Definitive disposition and diagnosis as appropriate pending reevaluation and review of above. chest area Pain Score (Numeric/FACES): 10 - Related Data Allergies Allergy/AdvReac Type Severity Reaction Status Date / Time No Known Allergies Allergy Verified 08/11/18 21:13 Home Meds: Home Meds Carvedilol 3.125 mg PO BID 09/22/16 [History] Isosorbide Mononitrate [Imdur] 30 mg PO DAILY 09/22/16 [History] Pantoprazole [ProTONIX] 40 mg PO ACBREAKFAST 09/22/16 [History] Pravastatin [Pravachol] 40 mg PO BEDTIME 09/22/16 [History] Clopidogrel [Plavix] 75 mg PO DAILY 04/19/17 [History] PARoxetine [Paxil] 10 mg PO DAILY 04/19/17 [History] Aspirin [Halfprin] 81 mg PO DAILY #0 tab.ec 04/20/17 [Rx] Meloxicam [Mobic] 15 mg PO WITHBREAKFAST 03/07/18 [History] Nitroglycerin [Nitrostat] 0.4 mg SL Q5M PRN MDD 3 03/07/18 [History] levETIRAcetam [Levetiracetam ER] 750 mg PO BEDTIME 03/07/18 [History] Past Medical History - Past Health History Medical/Surgical History: Denies Medical/Surgical History HEENT History: Reports: Other (See Below) Other HEENT History: uses reading glasses Cardiovascular History: Reports: CAD, High Cholesterol, Hypertension, [place], Stents , Other (See Below) Other Cardiovascular History: [place] in 2009 Respiratory History: Reports: None Gastrointestinal History: Reports: GERD Genitourinary History: Reports: None Musculoskeletal History: Reports: None Other Musculoskeletal History: has arthritis in back Neurological History: Reports: Vertigo, Other (See Below) Other Neuro History: hx of Claustrophobia Psychiatric History: Reports: Anxiety, Depression, Other (See Below) Other Psychiatric History: Claustrophobia 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, Type II Hematologic History: Reports: Anticoagulation Therapy Immunologic History: Reports: None Oncologic (Cancer) History: Reports: None Dermatologic History: Reports: None - Infectious Disease History Infectious Disease History: Reports: None - Past Surgical History HEENT Surgical History: Reports: Oral Surgery, Tonsillectomy, Other (See Below) GI Surgical History: Reports: Appendectomy Social & Family History - Family History Family Medical History: Noncontributory Cardiac: Reports: [place] Respiratory: Reports: None Endocrine/Metabolic: Reports: Diabetes, Type I Hematologic: Reports: None Oncologic: Reports: Other (See Below) Other Oncologic Family History: Father side has cancer but patient doesn't know exactly what kind of CA - Caffeine Use Caffeine Use: Reports: Coffee Caffeine Use Comment: daily - Living Situation & Occupation Living situation: Reports: Occupation: Retired ED ROS GENERAL - Review of Systems Review Of Systems: ROS reveals no pertinent complaints other than HPI. ED EXAM, GENERAL - Physical Exam Exam: See Below (See dictation) Course - Vital Signs Last Recorded V/S: Last Vital Signs Temp 36.1 C 08/11/18 21:10 Pulse 77 08/11/18 22:13 Resp 19 08/11/18 22:13 BP 119/76 08/11/18 22:13 Pulse Ox 94 L 08/11/18 22:13 - Orders/Labs/Meds Orders: Active Orders 24 hr Category Date Time Status Cardiac Monitoring [RC] . DIRECTED Care 08/11/18 21:14 Active EKG Documentation Completion [RC] STAT Care 08/11/18 21:14 Active Oxygen Therapy, ED [RC] ASDIRECTED Care 08/11/18 21:14 Active Pulse Oximetry [RC] ASDIRECTED Care 08/11/18 21:14 Active Chest 1V Frontal [CR] Stat Exams 08/11/18 21:14 Taken B-TYPE NATRIURETIC PEPTIDE,BNP [CHEM] Stat Lab 08/11/18 21:33 Received Sodium Chloride 0.9% [Saline Flush] Med 08/11/18 21:14 Active 10 ml FLUSH ASDIRECTED PRN Sodium Chloride 0.9% [Saline Flush] Med 08/11/18 21:14 Active 2.5 ml FLUSH ASDIRECTED PRN Saline Lock Insert [OM.PC] Stat Oth 08/11/18 21:14 Ordered Medication Orders Sodium Chloride (Saline Flush) 10 ml FLUSH ASDIRECTED PRN PRN Reason: Keep Vein Open Sodium Chloride (Saline Flush) 2.5 ml FLUSH ASDIRECTED PRN PRN Reason: Keep Vein Open Labs: Laboratory Tests 08/11/18 08/11/18 08/11/18 Range/Units 21:33 21:33 21:33 WBC 5.24 (4.0-11.0) K/uL RBC 4.12 L (4.50-5.90) M/uL Hgb 11.5 L (13.0-17.0) g/dL Hct 36.7 L (38.0-50.0) % MCV 89.1 (80.0-98.0) fL MCH 27.9 (27.0-32.0) pg MCHC 31.3 (31.0-37.0) g/dL RDW Std Deviation 50.6 (28.0-62.0) fl RDW Coeff of Ethan 15 (11.0-15.0) % Plt Count 219 (150-400) K/uL MPV 9.80 (7.40-12.00) fL Neut % (Auto) 50.5 (48.0-80.0) % Lymph % (Auto) 34.0 (16.0-40.0) % Nelson % (Auto) 13.0 (0.0-15.0) % Eos % (Auto) 2.3 (0.0-7.0) % Baso % (Auto) 0.2 (0.0-1.5) % Neut # (Auto) 2.7 (1.4-5.7) K/uL Lymph # (Auto) 1.8 (0.6-2.4) K/uL Nelson # (Auto) 0.7 (0.0-0.8) K/uL Eos # (Auto) 0.1 (0.0-0.7) K/uL Baso # (Auto) 0.0 (0.0-0.1) K/uL Nucleated RBC % 0.0 /100WBC Nucleated RBCs # 0 K/uL INR 0.96 Sodium 141 (136-148) mmol/L Potassium 4.0 (3.5-5.1) mmol/L Chloride 106 (98-107) mmol/L Carbon Dioxide 24.9 (21.0-32.0) mmol/L BUN 22 H (7.0-18.0) mg/dL Creatinine 1.0 (0.8-1.3) mg/dL Est Cr Clr Drug Dosing 63.03 mL/min Estimated GFR (MDRD) > 60.0 ml/min Glucose 123 H (74-106) mg/dL Calcium 8.7 (8.5-10.1) mg/dL Total Bilirubin 0.3 (0.2-1.0) mg/dL AST 13 L (15-37) IU/L ALT 17 (14-63) IU/L Alkaline Phosphatase 74 (46-116) U/L Troponin I < 0.050 (0.000-0.056) ng/mL Total Protein 7.2 (6.4-8.2) g/dL Albumin 3.9 (3.4-5.0) g/dL Globulin 3.3 (2.6-4.0) g/dL Albumin/Globulin Ratio 1.2 (0.9-1.6) Meds: Medications Generic Name Dose Route Start Last Admin Trade Name Freq PRN Reason Stop Dose Admin Sodium Chloride 10 ml 08/11/18 21:14 Saline Flush FLUSH ASDIRECTED PRN Keep Vein Open Sodium Chloride 2.5 ml 08/11/18 21:14 Saline Flush FLUSH ASDIRECTED PRN Keep Vein Open Discontinued Medications Generic Name Dose Route Start Last Admin Trade Name Freq PRN Reason Stop Dose Admin Aspirin 324 mg 08/11/18 21:14 08/11/18 21:23 Aspirin PO 08/11/18 21:15 324 mg ONETIME ONE Administration Aspirin Confirm 08/11/18 21:17 08/11/18 21:24 Aspirin Administered 08/11/18 21:18 Not Given Dose 324 mg .ROUTE .STK-MED ONE Departure - Departure Time of Disposition: 22:14 Disposition: Refer to Observation Condition: Good Clinical Impression: Anxiety, History of coronary artery disease Chest pain Qualifiers: Chest pain type: unspecified Qualified Code(s): R07.9 - Chest pain, unspecified - Discharge Information Forms: ED Department Discharge - My Orders Last 24 Hours: My Active Orders 08/11/18 21:14 Cardiac Monitoring [RC] . DIRECTED EKG Documentation Completion [RC] STAT Oxygen Therapy, ED [RC] ASDIRECTED Pulse Oximetry [RC] ASDIRECTED Chest 1V Frontal [CR] Stat Sodium Chloride 0.9% [Saline Flush] 10 ml FLUSH ASDIRECTED PRN Sodium Chloride 0.9% [Saline Flush] 2.5 ml FLUSH ASDIRECTED PRN Saline Lock Insert [OM.PC] Stat 08/11/18 21:33 B-TYPE NATRIURETIC PEPTIDE,BNP [CHEM] Stat - Assessment/Plan Last 24 Hours: My Active Orders 08/11/18 21:14 Cardiac Monitoring [RC] . DIRECTED EKG Documentation Completion [RC] STAT Oxygen Therapy, ED [RC] ASDIRECTED Pulse Oximetry [RC] ASDIRECTED Chest 1V Frontal [CR] Stat Sodium Chloride 0.9% [Saline Flush] 10 ml FLUSH ASDIRECTED PRN Sodium Chloride 0.9% [Saline Flush] 2.5 ml FLUSH ASDIRECTED PRN Saline Lock Insert [OM.PC] Stat 08/11/18 21:33 B-TYPE NATRIURETIC PEPTIDE,BNP [CHEM] Stat
[2018-08-11 22:01] LABS: CHLORIDE,CL 106 mmol/L (98-107); SODIUM,NA 141 mmol/L (136-148)
--- NOTE | 2018-08-11 23:16 | CR ---
INDICATION: Chest pain. TECHNIQUE: Chest 1 view. COMPARISON: 05/04/2018. FINDINGS: Cardiovascular and mediastinum: Heart size and vasculature are normal in caliber and appearance. Mediastinum is within normal limits. Lungs and pleural space: Lungs are clear. No pleural effusion. No pneumothorax. Bones and soft tissues: No acute findings. IMPRESSION: No acute pulmonary process. Dictated by Good Watson MD @ 08/11/2018 11:15:41 PM Dictated by: Good Watson MD @ 08/11/2018 23:15:47 (Electronically Signed)
[2018-08-12] MEDS ORDERED: Nitroglycerin 0.4 MG Tab.SL SL PRN (00:11)
[2018-08-12] MEDS: Acetaminophen 325 MG Tab PO PRN ×2 (01:03→09:17)
--- NOTE | 2018-08-12 01:57 | CT ---
INDICATION: Syncopal episode with headache TECHNIQUE: CT head without contrast. COMPARISON: 05/03/2018 FINDINGS: CSF spaces: Within normal limits for age. Brain parenchyma: The mitchell-white differentiation is normal. No sign of mass, hemorrhage, or midline shift. Skull base and calvarium: The visualized paranasal sinuses and mastoid air cells demonstrate no acute or significant findings. The visualized orbits are grossly unremarkable. No skull fractures. IMPRESSION: Unremarkable noncontrast head CT. Dictated by Adrien Hurley MD @ 08/12/2018 1:54:50 AM Please note that all CT scans at this facility use dose modulation, iterative reconstruction, and/or weight-based dosing when appropriate to reduce radiation dose to as low as reasonably achievable. Dictated by: Adrien Hurley MD @ 08/12/2018 01:56:08 (Electronically Signed)
[2018-08-12] MEDS ORDERED: Pantoprazole 40 MG Tab.CR PO SCH (07:30)
[2018-08-12] MEDS ORDERED: Meloxicam 7.5 MG Tab PO SCH (08:00)
[2018-08-12] MEDS ORDERED: Isosorbide Mononitrate 30 MG Tab.ER PO SCH (09:00)
[2018-08-12] MEDS ORDERED: Clopidogrel 75 MG Tab PO SCH (09:00)
[2018-08-12] MEDS ORDERED: Carvedilol 3.125 MG Tab PO SCH (09:00)
[2018-08-12] MEDS ORDERED: Aspirin 81 MG Tab.EC PO SCH (09:00)
[2018-08-12 13:09] VITALS: BP 104/65
--- NOTE | 2018-08-12 13:12 | PCM.HP ---
H&P History of Present Illness - General Date of Service: 08/12/18 Admit Problem/Dx: Admission Diagnosis/Problem Admission Diagnosis/Problem Chest pain - History of Present Illness Initial Comments - Free Text/Narative: 73 yo male with pmh of CAD, ischemic dilated cardiomyopathy and HTN who presented to the ED with complaint of chest pain. He describes sharp substernal chest pain that last for several hours. He denies any shortness of breath, cough or lightheadedness. In the ED his initial EKG and troponin were negative. On admission he did have a brief syncopal episode. Headache Pain Score (Numeric/FACES): 8 chest area Pain Score (Numeric/FACES): 10 - Related Data Allergies/Adverse Reactions: Allergies Allergy/AdvReac Type Severity Reaction Status Date / Time No Known Allergies Allergy Verified 08/11/18 21:13 Home Medications: Home Meds Carvedilol 3.125 mg PO BID 09/22/16 [History] Isosorbide Mononitrate [Imdur] 30 mg PO DAILY 09/22/16 [History] Pantoprazole [ProTONIX] 40 mg PO ACBREAKFAST 09/22/16 [History] Pravastatin [Pravachol] 40 mg PO BEDTIME 09/22/16 [History] Clopidogrel [Plavix] 75 mg PO DAILY 04/19/17 [History] PARoxetine [Paxil] 10 mg PO DAILY 04/19/17 [History] Aspirin [Halfprin] 81 mg PO DAILY #0 tab.ec 04/20/17 [Rx] Meloxicam [Mobic] 15 mg PO WITHBREAKFAST 03/07/18 [History] Nitroglycerin [Nitrostat] 0.4 mg SL Q5M PRN MDD 3 03/07/18 [History] levETIRAcetam [Levetiracetam ER] 750 mg PO BEDTIME 03/07/18 [History] Past Medical History - Past Health History Medical/Surgical History: Denies Medical/Surgical History HEENT History: Reports: Other (See Below) Other HEENT History: uses reading glasses Cardiovascular History: Reports: CAD, High Cholesterol, Hypertension, [place], Stents , Other (See Below) Other Cardiovascular History: [place] in 2009 Respiratory History: Reports: None Gastrointestinal History: Reports: GERD Genitourinary History: Reports: None Musculoskeletal History: Reports: None Other Musculoskeletal History: has arthritis in back Neurological History: Reports: Vertigo, Other (See Below) Other Neuro History: hx of Claustrophobia Psychiatric History: Reports: Anxiety, Depression, Other (See Below) Other Psychiatric History: Claustrophobia 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, Type II Hematologic History: Reports: Anticoagulation Therapy Immunologic History: Reports: None Oncologic (Cancer) History: Reports: None Dermatologic History: Reports: None - Infectious Disease History Infectious Disease History: Reports: None - Past Surgical History Head Surgeries/Procedures: Reports: None HEENT Surgical History: Reports: Oral Surgery, Tonsillectomy, Other (See Below) GI Surgical History: Reports: Appendectomy Social & Family History - Family History Family Medical History: Noncontributory Cardiac: Reports: [place] Respiratory: Reports: None Endocrine/Metabolic: Reports: Diabetes, Type I Hematologic: Reports: None Oncologic: Reports: Other (See Below) Other Oncologic Family History: Father side has cancer but patient doesn't know exactly what kind of CA - Tobacco Use Smoking Status *Q: Never Smoker Second Hand Smoke Exposure: No - Caffeine Use Caffeine Use: Reports: None Caffeine Use Comment: daily - Recreational Drug Use Recreational Drug Use: No - Living Situation & Occupation Living situation: Reports: Occupation: Retired H&P Review of Systems - Review of Systems: Review Of Systems: ROS reveals no pertinent complaints other than HPI. Exam - Exam Exam: See Below - Vital Signs Vital Signs: Last Vital Signs Temp 36.2 C 08/12/18 08:00 Pulse 79 08/12/18 09:11 Resp 16 08/12/18 08:00 BP 122/80 08/12/18 09:12 Pulse Ox 96 08/12/18 08:00 Orthostatic Blood Pressure [ 153/80 Standing] Orthostatic Blood Pressure [ 161/84 Sitting] Orthostatic Blood Pressure [ 171/97 Side, Right] Weight: 70.715 kg - Exam General: Alert, Oriented HEENT: Conjunctiva Clear Neck: Supple, Trachea Midline Lungs: Clear to Auscultation, Normal Respiratory Effort Cardiovascular: Regular Rate, Regular Rhythm GI/Abdominal Exam: Normal Bowel Sounds, Soft, Non-Tender Extremities: Normal Inspection, Non-Tender Skin: Warm, Dry, Intact - Patient Data Lab Results Last 24 hrs: Laboratory Results - last 24 hr 08/11/18 08/11/18 08/11/18 Range/Units 21:33 21:33 21:33 WBC 5.24 (4.0-11.0) K/uL RBC 4.12 L (4.50-5.90) M/uL Hgb 11.5 L (13.0-17.0) g/dL Hct 36.7 L (38.0-50.0) % MCV 89.1 (80.0-98.0) fL MCH 27.9 (27.0-32.0) pg MCHC 31.3 (31.0-37.0) g/dL RDW Std Deviation 50.6 (28.0-62.0) fl RDW Coeff of Ethan 15 (11.0-15.0) % Plt Count 219 (150-400) K/uL MPV 9.80 (7.40-12.00) fL Neut % (Auto) 50.5 (48.0-80.0) % Lymph % (Auto) 34.0 (16.0-40.0) % Gibson % (Auto) 13.0 (0.0-15.0) % Eos % (Auto) 2.3 (0.0-7.0) % Baso % (Auto) 0.2 (0.0-1.5) % Neut # (Auto) 2.7 (1.4-5.7) K/uL Lymph # (Auto) 1.8 (0.6-2.4) K/uL Gibson # (Auto) 0.7 (0.0-0.8) K/uL Eos # (Auto) 0.1 (0.0-0.7) K/uL Baso # (Auto) 0.0 (0.0-0.1) K/uL Nucleated RBC % 0.0 /100WBC Nucleated RBCs # 0 K/uL INR 0.96 Sodium 141 (136-148) mmol/L Potassium 4.0 (3.5-5.1) mmol/L Chloride 106 (98-107) mmol/L Carbon Dioxide 24.9 (21.0-32.0) mmol/L BUN 22 H (7.0-18.0) mg/dL Creatinine 1.0 (0.8-1.3) mg/dL Est Cr Clr Drug Dosing 63.03 mL/min Estimated GFR (MDRD) > 60.0 ml/min Glucose 123 H (74-106) mg/dL Calcium 8.7 (8.5-10.1) mg/dL Total Bilirubin 0.3 (0.2-1.0) mg/dL AST 13 L (15-37) IU/L ALT 17 (14-63) IU/L Alkaline Phosphatase 74 (46-116) U/L Troponin I < 0.050 (0.000-0.056) ng/mL B-Natriuretic Peptide (<100) PG/ML Total Protein 7.2 (6.4-8.2) g/dL Albumin 3.9 (3.4-5.0) g/dL Globulin 3.3 (2.6-4.0) g/dL Albumin/Globulin Ratio 1.2 (0.9-1.6) 08/11/18 08/12/18 08/12/18 Range/Units 21:33 03:07 08:58 WBC (4.0-11.0) K/uL RBC (4.50-5.90) M/uL Hgb (13.0-17.0) g/dL Hct (38.0-50.0) % MCV (80.0-98.0) fL MCH (27.0-32.0) pg MCHC (31.0-37.0) g/dL RDW Std Deviation (28.0-62.0) fl RDW Coeff of Ethan (11.0-15.0) % Plt Count (150-400) K/uL MPV (7.40-12.00) fL Neut % (Auto) (48.0-80.0) % Lymph % (Auto) (16.0-40.0) % Gibson % (Auto) (0.0-15.0) % Eos % (Auto) (0.0-7.0) % Baso % (Auto) (0.0-1.5) % Neut # (Auto) (1.4-5.7) K/uL Lymph # (Auto) (0.6-2.4) K/uL Gibson # (Auto) (0.0-0.8) K/uL Eos # (Auto) (0.0-0.7) K/uL Baso # (Auto) (0.0-0.1) K/uL Nucleated RBC % /100WBC Nucleated RBCs # K/uL INR Sodium (136-148) mmol/L Potassium (3.5-5.1) mmol/L Chloride (98-107) mmol/L Carbon Dioxide (21.0-32.0) mmol/L BUN (7.0-18.0) mg/dL Creatinine (0.8-1.3) mg/dL Est Cr Clr Drug Dosing mL/min Estimated GFR (MDRD) ml/min Glucose (74-106) mg/dL Calcium (8.5-10.1) mg/dL Total Bilirubin (0.2-1.0) mg/dL AST (15-37) IU/L ALT (14-63) IU/L Alkaline Phosphatase (46-116) U/L Troponin I < 0.050 < 0.050 (0.000-0.056) ng/mL B-Natriuretic Peptide 62 (<100) PG/ML Total Protein (6.4-8.2) g/dL Albumin (3.4-5.0) g/dL Globulin (2.6-4.0) g/dL Albumin/Globulin Ratio (0.9-1.6) Result Diagrams: 08/11/18 21:33 08/11/18 21:33 Problem List Initiated/Reviewed/Updated: Yes Orders Last 24hrs: Active Orders 24 hr Category Date Time Status Patient Status [ADT] Stat ADT 08/11/18 22:15 Active EKG Documentation Completion [RC] STAT Care 08/11/18 21:14 Active Orthostatic Vital Signs [RC] ASDIRECTED Care 08/12/18 01:16 Active Pulse Oximetry [RC] ASDIRECTED Care 08/11/18 21:14 Active Ready for Discharge [RC] PER UNIT ROUTINE Care 08/12/18 12:55 Active Telemetry Monitoring [Cardiac Monitoring] [RC] Q8H Care 08/11/18 23:53 Active Regular Diet [DIET] Diet 08/12/18 Breakfast Active Acetaminophen [Tylenol] Med 08/12/18 00:08 Active 650 mg PO Q6H PRN Aspirin [Halfprin] Med 08/12/18 09:00 Active 81 mg PO DAILY Carvedilol [Coreg] Med 08/12/18 09:00 Active 3.125 mg PO BID Clopidogrel [Plavix] Med 08/12/18 09:00 Active 75 mg PO DAILY Isosorbide Mononitrate [Imdur] Med 08/12/18 09:00 Active 30 mg PO DAILY Meloxicam [Mobic] Med 08/12/18 08:00 Active 15 mg PO WITHBREAKFAST Nitroglycerin [Nitrostat] Med 08/12/18 00:11 Active 0.4 mg SL Q5M PRN PARoxetine [Paxil] Med 08/12/18 09:00 Active 10 mg PO DAILY Pantoprazole [ProTONIX] Med 08/12/18 07:30 Active 40 mg PO ACBREAKFAST Pravastatin [Pravachol] Med 08/12/18 21:00 Active 40 mg PO BEDTIME Sodium Chloride 0.9% [Saline Flush] Med 08/11/18 21:14 Active 10 ml FLUSH ASDIRECTED PRN Sodium Chloride 0.9% [Saline Flush] Med 08/11/18 21:14 Active 2.5 ml FLUSH ASDIRECTED PRN levETIRAcetam [Keppra] Med 08/12/18 21:00 Pending 750 mg PO BEDTIME Saline Lock Insert [OM.PC] Stat Oth 08/11/18 21:14 Ordered Medication Orders Acetaminophen (Tylenol) 650 mg PO Q6H PRN PRN Reason: Pain Last Admin: 08/12/18 09:17 Dose: 650 mg Admin: 08/12/18 01:03 Dose: 650 mg Aspirin (Halfprin) 81 mg PO DAILY [facility] Last Admin: 08/12/18 09:11 Dose: 81 mg Carvedilol (Coreg) 3.125 mg PO BID [facility] Last Admin: 08/12/18 09:11 Dose: 3.125 mg Clopidogrel Bisulfate (Plavix) 75 mg PO DAILY [facility] Last Admin: 08/12/18 09:11 Dose: 75 mg Isosorbide Mononitrate (Imdur) 30 mg PO DAILY [facility] Last Admin: 08/12/18 09:12 Dose: 30 mg Levetiracetam (Keppra) 750 mg PO BEDTIME [facility] Meloxicam (Mobic) 15 mg PO WITHBREAKFAST [facility] Last Admin: 08/12/18 09:12 Dose: 15 mg Nitroglycerin (Nitrostat) 0.4 mg SL Q5M PRN PRN Reason: Chest Pain Pantoprazole Sodium (Protonix) 40 mg PO ACBREAKFAST [facility] Last Admin: 08/12/18 07:14 Dose: 40 mg Paroxetine HCl (Paxil) 10 mg PO DAILY [facility] Last Admin: 08/12/18 09:11 Dose: 10 mg Pravastatin Sodium (Pravachol) 40 mg PO BEDTIME [facility] Sodium Chloride (Saline Flush) 10 ml FLUSH ASDIRECTED PRN PRN Reason: Keep Vein Open Sodium Chloride (Saline Flush) 2.5 ml FLUSH ASDIRECTED PRN PRN Reason: Keep Vein Open Assessment/Plan Comment:: 73 yo male admitted for chest pain and syncope. He was monitored overnight with no events on telemetry. His serial troponins were negative. This morning he is requesting discharge. He is to follow up with Dr. Davis.
[2018-08-12] MEDS ORDERED: Pravastatin 40 MG Tab PO SCH (21:00)
[2018-08-12] MEDS ORDERED: levETIRAcetam 500 MG Tab PO SCH (21:00)
== END 2018-08-12 14:20 | disposition home or self-care (01) ==
LOC: MW.ED 21:10 → MW.MS 22:15
PROVIDERS: ADMIT Internal Medicine; ATTEND Internal Medicine
DX: R07.2 Precordial pain (principal); I10 Essential (primary) hypertension; K21.9 Gastro-esophageal reflux disease without esophagitis; F41.9 Anxiety disorder, unspecified; F32.9 Major depressive disorder, single episode, unspecified; M46.90 Unspecified inflammatory spondylopathy, site unspecified; Z86.39 Personal history of other endocrine, nutritional and metabolic disease; Z86.79 Personal history of other diseases of the circulatory system; Z79.82 Long term (current) use of aspirin; Z79.01 Long term (current) use of anticoagulants; Z79.1 Long term (current) use of non-steroidal anti-inflammatories (NSAID); Z79.899 Other long term (current) drug therapy
CPT/HCPCS: 36415; 70450; 71045; 80053; 83880; 84484; 85025; 85610; 93005; 99285; A9270; G0378; 99284

== ENCOUNTER 2018-09-25 19:58 | Observation (INO) | payer MEDICARE, OTHER ==
[2018-09-25] MEDS ORDERED: Sodium Chloride 0.9% 2.5 ML Syringe FLUSH PRN (20:00)
[2018-09-25] MEDS ORDERED: Sodium Chloride 0.9% 10 ML Syringe FLUSH PRN (20:00)
--- NOTE | 2018-09-25 20:08 | EDM.PDOC ---
ED HPI GENERAL MEDICAL PROBLEM - General Stated Complaint: CHEST PAIN Time Seen by Provider: 09/25/18 20:00 Source of Information: Reports: Patient History Limitations: Reports: No Limitations - History of Present Illness INITIAL COMMENTS - FREE TEXT/NARRATIVE: HISTORY AND PHYSICAL: History of present illness: Patient is a 73-year-old male who presents to the emergency room with complaints of chest pain and fatigue. He has a past medical history of CAD, ischemic dilated cardiomyopathy, hypertension and. He reports this morning he started to have midsternal chest pain which has continued into this evening. He states he does have sublingual nitroglycerin available to him but did not take this medication as "it never works". He states nothing makes the pain better or worse. Earlier this morning he felt very dizzy while taking his dog outside. He did return inside and was able to rest, symptoms did resolve shortly after. He has been more fatigued than usual and has not been able to eat today as he has been taking frequent. Was able to take his pills appropriately and been able to drink fluids without any difficulty. Patient denies any fever, chills, headache, change in vision, syncope or near syncope. Denies any back pain, shortness of breath or cough. Denies any abdominal pain, nausea, vomiting, diarrhea, constipation or dysuria. Has not noted any blood in urine or stool. Review of systems: As per history of present illness and below otherwise all systems reviewed and negative. Past medical history: As per history of present illness and as reviewed below otherwise noncontributory. Surgical history: As per history of present illness and as reviewed below otherwise noncontributory. Social history: See social history for further information Family history: As per history of present illness and as reviewed below otherwise noncontributory. Physical exam: General: Well-developed and well-nourished 73-year-old male. Alert and oriented. Nontoxic appearing and in no acute distress. HEENT: Atraumatic, normocephalic, pupils equal and reactive bilaterally, negative for conjunctival pallor or scleral icterus, mucous membranes moist, TMs normal bilaterally, throat clear, neck supple, nontender, trachea midline. No drooling or trismus noted. No meningeal signs. No hot potato voice noted. Lungs: Clear to auscultation, breath sounds equal bilaterally, chest nontender. Heart: S1S2, regular rate and rhythm without overt murmur Abdomen: Soft, nondistended, nontender. Negative for masses or hepatosplenomegaly. Negative for costovertebral tenderness. Pelvis: Stable nontender. Skin: Intact, warm, dry. No lesions or rashes noted. Extremities: Atraumatic, moves all extremities per self without difficulty or deficits, negative for cords or calf pain. Neurovascular unremarkable. Neuro: Awake, alert, oriented. Cranial nerves II through XII unremarkable. Cerebellum unremarkable. Motor and sensory unremarkable throughout. Exam nonfocal. Notes: Patient did receive 3 sublingual nitroglycerin while here. He states it's did bring his pain down from a 10/10 to a 9/10. Patient did get relief with the IV morphine. Lab work is unremarkable. No significant changes and EKG findings. Vital signs remain stable. Patient states he is pain-free at this time. Diagnostics were shared with the patient. We'll keep for observation admission. Dr. Ibarra was consult did on this patient and agreeable for keeping the patient on telemetry for observation. Diagnostics: CBC, CMP, troponin, EKG, one view chest Therapeutics: Saline Lock, Nitro Sublingual, morphine Impression: Chest pain rule out [place] Plan: Observation admission with telemetry Definitive disposition and diagnosis as appropriate pending reevaluation and review of above. Left Chest Pain Score (Numeric/FACES): 10 - Related Data Allergies Allergy/AdvReac Type Severity Reaction Status Date / Time No Known Allergies Allergy Verified 09/25/18 20:19 Home Meds: Home Meds Carvedilol 3.125 mg PO BID 09/22/16 [History] Isosorbide Mononitrate [Imdur] 30 mg PO DAILY 09/22/16 [History] Pantoprazole [ProTONIX] 40 mg PO ACBREAKFAST 09/22/16 [History] Pravastatin [Pravachol] 40 mg PO BEDTIME 09/22/16 [History] Clopidogrel [Plavix] 75 mg PO DAILY 04/19/17 [History] PARoxetine [Paxil] 10 mg PO DAILY 04/19/17 [History] Aspirin [Halfprin] 81 mg PO DAILY #0 tab.ec 04/20/17 [Rx] Meloxicam [Mobic] 15 mg PO WITHBREAKFAST 03/07/18 [History] Nitroglycerin [Nitrostat] 0.4 mg SL Q5M PRN MDD 3 03/07/18 [History] levETIRAcetam [Levetiracetam ER] 750 mg PO BEDTIME 03/07/18 [History] Past Medical History - Past Health History Medical/Surgical History: Denies Medical/Surgical History HEENT History: Reports: Other (See Below) Other HEENT History: uses reading glasses Cardiovascular History: Reports: CAD, High Cholesterol, Hypertension, [place], Stents , Other (See Below) Other Cardiovascular History: [place] in 2009 Respiratory History: Reports: None Gastrointestinal History: Reports: GERD Genitourinary History: Reports: None Musculoskeletal History: Reports: None Other Musculoskeletal History: has arthritis in back Neurological History: Reports: Vertigo, Other (See Below) Other Neuro History: hx of Claustrophobia Psychiatric History: Reports: Anxiety, Depression, Other (See Below) Other Psychiatric History: Claustrophobia 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, Type II Hematologic History: Reports: Anticoagulation Therapy Immunologic History: Reports: None Oncologic (Cancer) History: Reports: None Dermatologic History: Reports: None - Infectious Disease History Infectious Disease History: Reports: None - Past Surgical History Head Surgeries/Procedures: Reports: None HEENT Surgical History: Reports: Oral Surgery, Tonsillectomy, Other (See Below) GI Surgical History: Reports: Appendectomy Social & Family History - Family History Family Medical History: Noncontributory Cardiac: Reports: [place] Respiratory: Reports: None Endocrine/Metabolic: Reports: Diabetes, Type I Hematologic: Reports: None Oncologic: Reports: Other (See Below) Other Oncologic Family History: Father side has cancer but patient doesn't know exactly what kind of CA - Caffeine Use Caffeine Use: Reports: None Caffeine Use Comment: daily - Living Situation & Occupation Living situation: Reports: Occupation: Retired ED ROS GENERAL - Review of Systems Review Of Systems: ROS reveals no pertinent complaints other than HPI. ED EXAM, GENERAL - Physical Exam Exam: See Below (See dictation) Course - Vital Signs Last Recorded V/S: Last Vital Signs Temp 97.1 F 09/25/18 20:19 Pulse 89 09/25/18 20:19 Resp 22 H 09/25/18 20:19 BP 124/90 09/25/18 20:35 Pulse Ox 94 L 09/25/18 20:19 - Orders/Labs/Meds Orders: Active Orders 24 hr Category Date Time Status Admission Status [Patient Status] [ADT] Stat ADT 09/25/18 20:56 Ordered EKG Documentation Completion [RC] STAT Care 09/25/18 20:00 Active Sodium Chloride 0.9% [Saline Flush] Med 09/25/18 20:00 Active 10 ml FLUSH ASDIRECTED PRN Sodium Chloride 0.9% [Saline Flush] Med 09/25/18 20:00 Active 2.5 ml FLUSH ASDIRECTED PRN Saline Lock Insert [OM.PC] Stat Oth 09/25/18 20:00 Ordered Medication Orders Sodium Chloride (Saline Flush) 10 ml FLUSH ASDIRECTED PRN PRN Reason: Keep Vein Open Sodium Chloride (Saline Flush) 2.5 ml FLUSH ASDIRECTED PRN PRN Reason: Keep Vein Open Labs: Laboratory Tests 09/25/18 09/25/18 Range/Units 20:00 20:00 WBC 4.97 (4.0-11.0) K/uL RBC 4.92 (4.50-5.90) M/uL Hgb 14.2 (13.0-17.0) g/dL Hct 43.9 (38.0-50.0) % MCV 89.2 (80.0-98.0) fL MCH 28.9 (27.0-32.0) pg MCHC 32.3 (31.0-37.0) g/dL RDW Std Deviation 48.2 (28.0-62.0) fl RDW Coeff of Ethan 15 (11.0-15.0) % Plt Count 249 (150-400) K/uL MPV 10.10 (7.40-12.00) fL Neut % (Auto) 52.7 (48.0-80.0) % Lymph % (Auto) 35.4 (16.0-40.0) % [place] % (Auto) 9.5 (0.0-15.0) % Eos % (Auto) 2.2 (0.0-7.0) % Baso % (Auto) 0.2 (0.0-1.5) % Neut # (Auto) 2.6 (1.4-5.7) K/uL Lymph # (Auto) 1.8 (0.6-2.4) K/uL [place] # (Auto) 0.5 (0.0-0.8) K/uL Eos # (Auto) 0.1 (0.0-0.7) K/uL Baso # (Auto) 0.0 (0.0-0.1) K/uL Nucleated RBC % 0.0 /100WBC Nucleated RBCs # 0 K/uL Sodium 140 (136-148) mmol/L Potassium 4.0 (3.5-5.1) mmol/L Chloride 102 (98-107) mmol/L Carbon Dioxide 26.6 (21.0-32.0) mmol/L BUN 24 H (7.0-18.0) mg/dL Creatinine 1.0 (0.8-1.3) mg/dL Est Cr Clr Drug Dosing 63.35 mL/min Estimated GFR (MDRD) > 60.0 ml/min Glucose 120 H (74-106) mg/dL Calcium 9.7 (8.5-10.1) mg/dL Total Bilirubin 0.6 (0.2-1.0) mg/dL AST 17 (15-37) IU/L ALT 18 (14-63) IU/L Alkaline Phosphatase 89 (46-116) U/L Troponin I < 0.050 (0.000-0.056) ng/mL Total Protein 8.8 H (6.4-8.2) g/dL Albumin 4.8 (3.4-5.0) g/dL Globulin 4.0 (2.6-4.0) g/dL Albumin/Globulin Ratio 1.2 (0.9-1.6) Meds: Medications Generic Name Dose Route Start Last Admin Trade Name Freq PRN Reason Stop Dose Admin Sodium Chloride 10 ml 09/25/18 20:00 Saline Flush FLUSH ASDIRECTED PRN Keep Vein Open Sodium Chloride 2.5 ml 09/25/18 20:00 Saline Flush FLUSH ASDIRECTED PRN Keep Vein Open Discontinued Medications Generic Name Dose Route Start Last Admin Trade Name Freq PRN Reason Stop Dose Admin Morphine Sulfate 2 mg 09/25/18 20:36 09/25/18 20:51 Morphine IVPUSH 09/25/18 20:37 2 mg ONETIME ONE Administration Nitroglycerin 0.4 mg 09/25/18 20:17 09/25/18 20:35 Nitrostat SL 0.4 mg Q5M PRN Administration Chest Pain Departure - Departure Time of Disposition: 21:03 Disposition: Refer to Observation Clinical Impression: Chest pain, rule out acute myocardial infarction Referrals: Vernell Donovan MD [Primary Care Provider] - - My Orders Last 24 Hours: My Active Orders 09/25/18 20:00 EKG Documentation Completion [RC] STAT Sodium Chloride 0.9% [Saline Flush] 10 ml FLUSH ASDIRECTED PRN Sodium Chloride 0.9% [Saline Flush] 2.5 ml FLUSH ASDIRECTED PRN Saline Lock Insert [OM.PC] Stat 09/25/18 20:56 Admission Status [Patient Status] [ADT] Stat - Assessment/Plan Last 24 Hours: My Active Orders 09/25/18 20:00 EKG Documentation Completion [RC] STAT Sodium Chloride 0.9% [Saline Flush] 10 ml FLUSH ASDIRECTED PRN Sodium Chloride 0.9% [Saline Flush] 2.5 ml FLUSH ASDIRECTED PRN Saline Lock Insert [OM.PC] Stat 09/25/18 20:56 Admission Status [Patient Status] [ADT] Stat
[2018-09-25] MEDS: Nitroglycerin 0.4 MG Tab.SL SL PRN ×3 (20:25→20:35)
[2018-09-25] MEDS ORDERED: Morphine 2 MG/ML Syringe IVPUSH ONE (20:36)
[2018-09-25 20:42] LABS: CHLORIDE,CL 102 mmol/L (98-107); SODIUM,NA 140 mmol/L (136-148)
--- NOTE | 2018-09-25 20:52 | CR ---
HISTORY: Chest pain COMPARISON: 08/11/2018 FINDINGS: A portable erect AP view of the chest was obtained at 2010 hours. The lungs remain clear. No focal or diffuse infiltrates are present. The heart remains normal in size. The mediastinum is normal in appearance. The osseous structures are normal in appearance for the patient`s age. IMPRESSION: Normal portable chest single view. Dictated by Cory Felix MD @ Sep 25 2018 8:48PM Signed by Dr. Cory Felix @ Sep 25 2018 8:50PM
[2018-09-25] MEDS ORDERED: Temazepam 15 MG Cap PO PRN (23:03)
[2018-09-25] MEDS ORDERED: Acetaminophen 325 MG Tab PO PRN (23:03)
[2018-09-25] MEDS ORDERED: Docusate Sodium 100 MG Cap PO PRN (23:03)
[2018-09-25] MEDS ORDERED: oxyCODONE 5 MG Tab PO PRN (23:03)
[2018-09-25] MEDS ORDERED: Pravastatin 40 MG Tab PO SCH (23:30)
[2018-09-25] MEDS ORDERED: levETIRAcetam 500 MG Tab PO SCH (23:30)
[2018-09-26] MEDS: Carvedilol 3.125 MG Tab PO SCH ×2 (00:21→09:03)
[2018-09-26] MEDS ORDERED: Pantoprazole 40 MG Tab.CR PO SCH (07:30)
[2018-09-26 08:40] LABS: CHLORIDE,CL 104 mmol/L (98-107); SODIUM,NA 140 mmol/L (136-148)
--- NOTE | 2018-09-26 08:56 | PCM.HP ---
H&P History of Present Illness - General Date of Service: 09/26/18 Admit Problem/Dx: Admission Diagnosis/Problem Admission Diagnosis/Problem Chest pain, rule out acute myocardial infarction Source of Information: Patient History Limitations: Reports: No Limitations - History of Present Illness Initial Comments - Free Text/Narative: The patient is a 73-year-old gentleman who has a significant history of coronary artery disease along with ischemic dilated cardiomyopathy and has presented to the emergency department with a complaint of chest pain. The patient has had chest pain off and on since his previous heart attack with subsequent stenting February 2018. Patient has described the pain in the left mid sternal area and not radiating. He is described the pain is sharp and stabbing. Further, the patient says that the pain does not radiate. The patient has had no specific aggravating or relieving factors although he does not use sublingual nitroglycerin as "it does not work for him" and nothing seems to make the pain better or worse. Onset of Symptoms: Reports: Gradual Duration of Symptoms: Reports: Chronic Location: Reports: Chest Quality: Reports: Stabbing, Throbbing Severity: Moderate Improves with: Reports: None Worsens with: Reports: None Context: Reports: Sick Contact Associated Symptoms: Reports: No Other Symptoms Headache Pain Score (Numeric/FACES): 10 Left Chest Pain Score (Numeric/FACES): 6 - Related Data Allergies/Adverse Reactions: Allergies Allergy/AdvReac Type Severity Reaction Status Date / Time No Known Allergies Allergy Verified 09/25/18 20:19 Home Medications: Home Meds Carvedilol 3.125 mg PO BID 09/22/16 [History] Isosorbide Mononitrate [Imdur] 30 mg PO DAILY 09/22/16 [History] Pantoprazole [ProTONIX] 40 mg PO ACBREAKFAST 09/22/16 [History] Pravastatin [Pravachol] 40 mg PO BEDTIME 09/22/16 [History] Clopidogrel [Plavix] 75 mg PO DAILY 04/19/17 [History] PARoxetine [Paxil] 10 mg PO DAILY 04/19/17 [History] Aspirin [Halfprin] 81 mg PO DAILY #0 tab.ec 04/20/17 [Rx] Meloxicam [Mobic] 15 mg PO WITHBREAKFAST 03/07/18 [History] Nitroglycerin [Nitrostat] 0.4 mg SL Q5M PRN MDD 3 03/07/18 [History] levETIRAcetam [Levetiracetam ER] 750 mg PO BEDTIME 03/07/18 [History] Past Medical History - Past Health History Medical/Surgical History: Denies Medical/Surgical History HEENT History: Reports: Other (See Below) Other HEENT History: uses reading glasses Cardiovascular History: Reports: CAD, High Cholesterol, Hypertension, [place], Stents , Other (See Below) Other Cardiovascular History: [place] in 2009 Respiratory History: Reports: None Gastrointestinal History: Reports: GERD Genitourinary History: Reports: None Musculoskeletal History: Reports: None Other Musculoskeletal History: has arthritis in back Neurological History: Reports: Vertigo, Other (See Below) Other Neuro History: hx of Claustrophobia Psychiatric History: Reports: Anxiety, Depression, Other (See Below) Other Psychiatric History: Claustrophobia 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, Type II Hematologic History: Reports: Anticoagulation Therapy Immunologic History: Reports: None Oncologic (Cancer) History: Reports: None Dermatologic History: Reports: None - Infectious Disease History Infectious Disease History: Reports: None - Past Surgical History Head Surgeries/Procedures: Reports: None HEENT Surgical History: Reports: Oral Surgery, Tonsillectomy, Other (See Below) GI Surgical History: Reports: Appendectomy Social & Family History - Family History Family Medical History: Noncontributory Cardiac: Reports: [place] Respiratory: Reports: None Endocrine/Metabolic: Reports: Diabetes, Type I Hematologic: Reports: None Oncologic: Reports: Other (See Below) Other Oncologic Family History: Father side has cancer but patient doesn't know exactly what kind of CA - Tobacco Use Smoking Status *Q: Never Smoker Second Hand Smoke Exposure: No - Caffeine Use Caffeine Use: Reports: Soda Caffeine Use Comment: daily - Alcohol Use Days Per Week of Alcohol Use: 1 Number of Drinks Per Day: 1 Total Drinks Per Week: 1 - Recreational Drug Use Recreational Drug Use: No - Living Situation & Occupation Living situation: Reports: Occupation: Retired H&P Review of Systems - Review of Systems: Review Of Systems: See Below General: Reports: No Symptoms HEENT: Reports: No Symptoms Pulmonary: Reports: No Symptoms Cardiovascular: Reports: Chest Pain Gastrointestinal: Reports: No Symptoms Genitourinary: Reports: No Symptoms Musculoskeletal: Reports: No Symptoms Skin: Reports: No Symptoms Psychiatric: Reports: No Symptoms Neurological: Reports: No Symptoms Hematologic/Lymphatic: Reports: No Symptoms Immunologic: Reports: No Symptoms Exam - Exam Exam: See Below - Vital Signs Vital Signs: Last Vital Signs Temp 36.9 C 09/26/18 03:59 Pulse 69 09/26/18 03:59 Resp 20 09/26/18 03:59 BP 96/61 09/26/18 03:59 Pulse Ox 97 09/26/18 03:59 Weight: 69 kg - Exam Quality Assessment: No: Supplemental Oxygen General: Alert, Oriented, Cooperative HEENT: Conjunctiva Clear, EACs Clear, EOMI, Mucosa Moist & [place], Nares Patent, Pupils Equal, PERRLA Neck: Supple, Trachea Midline Lungs: Clear to Auscultation, Normal Respiratory Effort, Other (Tenderness to palpation in area of chest pain) Cardiovascular: Regular Rate, Regular Rhythm GI/Abdominal Exam: Normal Bowel Sounds, Soft, Non-Tender, No Distention Back Exam: Normal Inspection, Full Range of Motion Extremities: Normal Inspection, Normal Range of Motion, No Pedal Edema Skin: Warm, Dry, Intact Neurological: Cranial Nerves Intact Neuro Extensive - Mental Status: Alert, Oriented x3 Psychiatric: Alert, Normal Affect, Normal Mood - Patient Data Lab Results Last 24 hrs: Laboratory Results - last 24 hr 09/25/18 09/25/18 09/26/18 Range/Units 20:00 20:00 02:10 WBC 4.97 (4.0-11.0) K/uL RBC 4.92 (4.50-5.90) M/uL Hgb 14.2 (13.0-17.0) g/dL Hct 43.9 (38.0-50.0) % MCV 89.2 (80.0-98.0) fL MCH 28.9 (27.0-32.0) pg MCHC 32.3 (31.0-37.0) g/dL RDW Std Deviation 48.2 (28.0-62.0) fl RDW Coeff of Ethan 15 (11.0-15.0) % Plt Count 249 (150-400) K/uL MPV 10.10 (7.40-12.00) fL Neut % (Auto) 52.7 (48.0-80.0) % Lymph % (Auto) 35.4 (16.0-40.0) % [place] % (Auto) 9.5 (0.0-15.0) % Eos % (Auto) 2.2 (0.0-7.0) % Baso % (Auto) 0.2 (0.0-1.5) % Neut # (Auto) 2.6 (1.4-5.7) K/uL Lymph # (Auto) 1.8 (0.6-2.4) K/uL [place] # (Auto) 0.5 (0.0-0.8) K/uL Eos # (Auto) 0.1 (0.0-0.7) K/uL Baso # (Auto) 0.0 (0.0-0.1) K/uL Nucleated RBC % 0.0 /100WBC Nucleated RBCs # 0 K/uL Sodium 140 (136-148) mmol/L Potassium 4.0 (3.5-5.1) mmol/L Chloride 102 (98-107) mmol/L Carbon Dioxide 26.6 (21.0-32.0) mmol/L BUN 24 H (7.0-18.0) mg/dL Creatinine 1.0 (0.8-1.3) mg/dL Est Cr Clr Drug Dosing 63.35 mL/min Estimated GFR (MDRD) > 60.0 ml/min Glucose 120 H (74-106) mg/dL Calcium 9.7 (8.5-10.1) mg/dL Total Bilirubin 0.6 (0.2-1.0) mg/dL AST 17 (15-37) IU/L ALT 18 (14-63) IU/L Alkaline Phosphatase 89 (46-116) U/L Troponin I < 0.050 < 0.050 (0.000-0.056) ng/mL Total Protein 8.8 H (6.4-8.2) g/dL Albumin 4.8 (3.4-5.0) g/dL Globulin 4.0 (2.6-4.0) g/dL Albumin/Globulin Ratio 1.2 (0.9-1.6) 09/26/18 09/26/18 09/26/18 Range/Units 07:55 07:55 07:55 WBC 5.86 (4.0-11.0) K/uL RBC 4.41 L (4.50-5.90) M/uL Hgb 12.8 L (13.0-17.0) g/dL Hct 39.5 (38.0-50.0) % MCV 89.6 (80.0-98.0) fL MCH 29.0 (27.0-32.0) pg MCHC 32.4 (31.0-37.0) g/dL RDW Std Deviation 48.6 (28.0-62.0) fl RDW Coeff of Ethan 15 (11.0-15.0) % Plt Count 225 (150-400) K/uL MPV 10.00 (7.40-12.00) fL Neut % (Auto) 54.7 (48.0-80.0) % Lymph % (Auto) 32.6 (16.0-40.0) % [place] % (Auto) 10.8 (0.0-15.0) % Eos % (Auto) 1.7 (0.0-7.0) % Baso % (Auto) 0.2 (0.0-1.5) % Neut # (Auto) 3.2 (1.4-5.7) K/uL Lymph # (Auto) 1.9 (0.6-2.4) K/uL [place] # (Auto) 0.6 (0.0-0.8) K/uL Eos # (Auto) 0.1 (0.0-0.7) K/uL Baso # (Auto) 0.0 (0.0-0.1) K/uL Nucleated RBC % 0.0 /100WBC Nucleated RBCs # 0 K/uL Sodium 140 (136-148) mmol/L Potassium 4.3 (3.5-5.1) mmol/L Chloride 104 (98-107) mmol/L Carbon Dioxide 28.7 (21.0-32.0) mmol/L BUN 25 H (7.0-18.0) mg/dL Creatinine 1.0 (0.8-1.3) mg/dL Est Cr Clr Drug Dosing 63.35 mL/min Estimated GFR (MDRD) > 60.0 ml/min Glucose 116 H (74-106) mg/dL Calcium 9.0 (8.5-10.1) mg/dL Total Bilirubin 0.6 (0.2-1.0) mg/dL AST 14 L (15-37) IU/L ALT 16 (14-63) IU/L Alkaline Phosphatase 71 (46-116) U/L Troponin I < 0.050 (0.000-0.056) ng/mL Total Protein 7.4 (6.4-8.2) g/dL Albumin 4.2 (3.4-5.0) g/dL Globulin 3.2 (2.6-4.0) g/dL Albumin/Globulin Ratio 1.3 (0.9-1.6) Result Diagrams: 09/26/18 07:55 09/26/18 07:55 - Problem List (1) Chest pain, rule out acute myocardial infarction SNOMED Code(s): 85717306 ICD Code: R07.9 - CHEST PAIN, UNSPECIFIED Status: Chronic Priority: Medium Current Visit: Yes (2) History of coronary artery disease SNOMED Code(s): 851841965 ICD Code: Z86.79 - PERSONAL HISTORY OF OTHER DISEASES OF THE CIRCULATORY SYSTEM Status: Acute Current Visit: No (3) HTN (hypertension) SNOMED Code(s): 42348855 ICD Code: I10 - ESSENTIAL (PRIMARY) HYPERTENSION Status: Chronic Priority : Medium Current Visit: No Qualifiers: Hypertension type: essential hypertension Qualified Code(s): I10 - Essential (primary) hypertension Problem List Initiated/Reviewed/Updated: Yes Orders Last 24hrs: Active Orders 24 hr Category Date Time Status Admission Status [Patient Status] [ADT] Stat ADT 09/25/18 20:56 Active Antiembolic Devices [RC] PER UNIT ROUTINE Care 09/25/18 23:03 Active Cardiac Monitoring [RC] CONTINUOUS Care 09/25/18 23:03 Active EKG Documentation Completion [RC] AM Care 09/26/18 08:00 Active Oxygen Therapy [RC] PRN Care 09/25/18 23:03 Active Telemetry Monitoring [Cardiac Monitoring] [RC] . Care 09/26/18 00:47 Active DIRECTED Up ad Violeta [RC] ASDIRECTED Care 09/25/18 23:03 Active VTE/DVT Education [RC] PER UNIT ROUTINE Care 09/25/18 23:03 Active Vital Signs [RC] Q4H Care 09/25/18 23:03 Active Heart Healthy Diet [DIET] Diet 09/26/18 Breakfast Active Acetaminophen [Tylenol] Med 09/25/18 23:03 Active 650 mg PO Q4H PRN Carvedilol [Coreg] Med 09/25/18 23:30 Active 3.125 mg PO BID Clopidogrel [Plavix] Med 09/26/18 09:00 Active 75 mg PO DAILY Docusate Sodium [Colace] Med 09/25/18 23:03 Active 100 mg PO BID PRN Isosorbide Mononitrate [Imdur] Med 09/26/18 09:00 Active 30 mg PO DAILY PARoxetine [Paxil] Med 09/26/18 09:00 Active 10 mg PO DAILY Pantoprazole [ProTONIX] Med 09/26/18 07:30 Active 40 mg PO ACBREAKFAST Pravastatin [Pravachol] Med 09/25/18 23:30 Active 40 mg PO BEDTIME Sodium Chloride 0.9% [Saline Flush] Med 09/25/18 20:00 Active 10 ml FLUSH ASDIRECTED PRN Sodium Chloride 0.9% [Saline Flush] Med 09/25/18 20:00 Active 2.5 ml FLUSH ASDIRECTED PRN Temazepam [Restoril] Med 09/25/18 23:03 Active 15 mg PO BEDTIME PRN levETIRAcetam [Keppra] Med 09/25/18 23:30 Active 750 mg PO BEDTIME oxyCODONE Med 09/25/18 23:03 Active 5 mg PO Q4H PRN Saline Lock Insert [OM.PC] Stat Oth 09/25/18 20:00 Ordered Sequential Compression Device [OM.PC] Per Unit Routine Oth 09/25/18 23:03 Ordered Resuscitation Status Routine Resus Stat 09/25/18 23:03 Ordered Medication Orders Acetaminophen (Tylenol) 650 mg PO Q4H PRN PRN Reason: Pain (Mild 1-3)/fever Last Admin: 09/26/18 01:15 Dose: 650 mg Carvedilol (Coreg) 3.125 mg PO BID ERICK Last Admin: 09/26/18 00:21 Dose: 3.125 mg Clopidogrel Bisulfate (Plavix) 75 mg PO DAILY ERICK Docusate Sodium (Colace) 100 mg PO BID PRN PRN Reason: Constipation Isosorbide Mononitrate (Imdur) 30 mg PO DAILY ERICK Levetiracetam (Keppra) 750 mg PO BEDTIME [facility] Last Admin: 09/26/18 00:23 Dose: 750 mg Oxycodone HCl (Oxycodone) 5 mg PO Q4H PRN PRN Reason: Pain (moderate 4-6) Pantoprazole Sodium (Protonix) 40 mg PO ACBREAKFAST [facility] Last Admin: 09/26/18 07:33 Dose: 40 mg Paroxetine HCl (Paxil) 10 mg PO DAILY [facility] Pravastatin Sodium (Pravachol) 40 mg PO BEDTIME [facility] Last Admin: 09/26/18 00:22 Dose: 40 mg Sodium Chloride (Saline Flush) 10 ml FLUSH ASDIRECTED PRN PRN Reason: Keep Vein Open Sodium Chloride (Saline Flush) 2.5 ml FLUSH ASDIRECTED PRN PRN Reason: Keep Vein Open Temazepam (Restoril) 15 mg PO BEDTIME PRN PRN Reason: Sleep Assessment/Plan Comment:: The patient is a 73-year-old gentleman who was admitted secondary to chest pain. The patient has had chest pain off and on since his previous myocardial infarction. The patient also has followed up with cardiology and should continue to follow with cardiology. The patient is having on physical examination exquisite tenderness which further likely indicates this is noncardiac in origin. Patient has had 3 troponins which are essentially undetectable. EKG has remained unchanged. The patient will be discharged from hospitalization with a recommendation to continue his diet as tolerated. 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 The patient is also to have activity as tolerated. The patient otherwise has been hemodynamically stable and he is discharged from acute hospitalization with recommendations listed above. This history and physical will also represent a discharge summary.
[2018-09-26] MEDS ORDERED: Clopidogrel 75 MG Tab PO SCH (09:00)
[2018-09-26] MEDS ORDERED: PARoxetine 20 MG Tab PO SCH (09:00)
[2018-09-26] MEDS ORDERED: Isosorbide Mononitrate 30 MG Tab.ER PO SCH (09:00)
[2018-09-26 09:03] VITALS: BP 111/65
[2018-09-26] MEDS ORDERED: LEVETIRACETAM 750 MG PO SCH (21:00)
== END 2018-09-26 11:45 | disposition home or self-care (01) ==
LOC: MW.ED 19:58 → MW.MS 20:56
PROVIDERS: ADMIT Internal Medicine; ATTEND Internal Medicine
DX: R07.89 Other chest pain (principal); I25.2 Old myocardial infarction; I10 Essential (primary) hypertension; E11.9 Type 2 diabetes mellitus without complications; E78.00 Pure hypercholesterolemia, unspecified; K21.9 Gastro-esophageal reflux disease without esophagitis; M46.90 Unspecified inflammatory spondylopathy, site unspecified; F41.9 Anxiety disorder, unspecified; F32.9 Major depressive disorder, single episode, unspecified; Z79.01 Long term (current) use of anticoagulants; Z79.899 Other long term (current) drug therapy; Z98.890 Other specified postprocedural states; Z86.79 Personal history of other diseases of the circulatory system; Z95.5 Presence of coronary angioplasty implant and graft
CPT/HCPCS: 36415; 71045; 80053; 84484; 85025; 93005; 96374; 99285; A9270; J2270; G0378

== ENCOUNTER 2019-01-14 14:45 | Observation (INO) | payer MEDICARE, OTHER ==
[2019-01-14] MEDS ORDERED: Sodium Chloride 0.9% 2.5 ML Syringe FLUSH PRN (14:57)
[2019-01-14] MEDS ORDERED: Sodium Chloride 0.9% 10 ML Syringe FLUSH PRN (14:57)
[2019-01-14] MEDS ORDERED: Sodium Chloride 0.9% 1,000 ML IV SCH (15:00)
--- NOTE | 2019-01-14 15:01 | EDM.PDOC ---
ED HPI GENERAL MEDICAL PROBLEM - General Chief Complaint: Chest Pain Stated Complaint: CHEST PAIN Time Seen by Provider: 01/14/19 14:59 - History of Present Illness INITIAL COMMENTS - FREE TEXT/NARRATIVE: HISTORY AND PHYSICAL: History of present illness: Patient is a 73-year-old white male with an extensive past medical history who presents with a concern of chest pain, dizziness and headache this is vaguely described there is no numbness weakness no visual disturbance denies associated shortness breath palpitations or diaphoresis he states he has been compliant with his medication area Review of systems: As per history of present illness and below otherwise all systems reviewed and negative. Past medical history: As per history of present illness and as reviewed below otherwise noncontributory. Surgical history: As per history of present illness and as reviewed below otherwise noncontributory. Social history: No reported history of drug or alcohol abuse. Family history: As per history of present illness and as reviewed below otherwise noncontributory. Physical exam: HEENT: Atraumatic, normocephalic, senile arcus noted pupils reactive, negative for conjunctival pallor or scleral icterus, mucous membranes moist, throat clear , neck supple, nontender, trachea midline. Lungs: Clear to auscultation, breath sounds equal bilaterally, chest nontender. Heart: S1S2, regular, negative for clicks, rubs, or JVD. Abdomen: Soft, nondistended, nontender. Negative for masses or hepatosplenomegaly. Negative for costovertebral tenderness. Pelvis: Stable nontender. Genitourinary: Deferred. Rectal: Deferred. Extremities: Atraumatic, negative for cords or calf pain. Neurovascular unremarkable. Neuro: Awake, alert, oriented. Cranial nerves II through XII unremarkable. Cerebellum unremarkable. Motor and sensory unremarkable throughout. Exam nonfocal. Diagnostics: CBC CMP troponin PT/INR chest x-ray EKG CT brain in [employer]: IV O2 monitor Impression: #1 chest pain #2 dizziness #3 headache Definitive disposition and diagnosis as appropriate pending reevaluation and review of above. Left Chest Pain Score (Numeric/FACES): 7 - Related Data Allergies Allergy/AdvReac Type Severity Reaction Status Date / Time No Known Allergies Allergy Verified 09/25/18 20:19 Home Meds: Home Meds Carvedilol 3.125 mg PO BID 06/07/17 [History] Isosorbide Mononitrate [Imdur] 30 mg PO DAILY 09/22/16 [History] Pantoprazole [ProTONIX] 40 mg PO ACBREAKFAST 09/22/16 [History] Pravastatin [Pravachol] 40 mg PO BEDTIME 09/22/16 [History] Clopidogrel [Plavix] 75 mg PO DAILY 04/19/17 [History] PARoxetine [Paxil] 10 mg PO DAILY 04/19/17 [History] Aspirin [Halfprin] 81 mg PO DAILY #0 tab.ec 04/20/17 [Rx] Meloxicam [Mobic] 15 mg PO WITHBREAKFAST 03/07/18 [History] Nitroglycerin [Nitrostat] 0.4 mg SL Q5M PRN MDD 3 03/07/18 [History] levETIRAcetam [Levetiracetam ER] 750 mg PO BEDTIME 03/07/18 [History] Past Medical History - Past Health History Medical/Surgical History: Denies Medical/Surgical History HEENT History: Reports: Other (See Below) Other HEENT History: uses reading glasses Cardiovascular History: Reports: CAD, High Cholesterol, Hypertension, [place], Stents , Other (See Below) Other Cardiovascular History: NE in 2009 Respiratory History: Reports: None Gastrointestinal History: Reports: GERD Genitourinary History: Reports: None Musculoskeletal History: Reports: None Other Musculoskeletal History: has arthritis in back Neurological History: Reports: Vertigo, Other (See Below) Other Neuro History: hx of Claustrophobia Psychiatric History: Reports: Anxiety, Depression, Other (See Below) Other Psychiatric History: Claustrophobia 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, Type II Hematologic History: Reports: Anticoagulation Therapy Immunologic History: Reports: None Oncologic (Cancer) History: Reports: None Dermatologic History: Reports: None - Infectious Disease History Infectious Disease History: Reports: None - Past Surgical History Head Surgeries/Procedures: Reports: None HEENT Surgical History: Reports: Oral Surgery, Tonsillectomy, Other (See Below) GI Surgical History: Reports: Appendectomy Social & Family History - Family History Family Medical History: Noncontributory Cardiac: Reports: NE Respiratory: Reports: None Endocrine/Metabolic: Reports: Diabetes, Type I Hematologic: Reports: None Oncologic: Reports: Other (See Below) Other Oncologic Family History: Father side has cancer but patient doesn't know exactly what kind of CA - Tobacco Use Smoking Status *Q: Never Smoker Second Hand Smoke Exposure: No - Caffeine Use Caffeine Use: Reports: Coffee Caffeine Use Comment: daily - Recreational Drug Use Recreational Drug Use: No - Living Situation & Occupation Living situation: Reports: Occupation: Retired ED ROS GENERAL - Review of Systems Review Of Systems: ROS reveals no pertinent complaints other than HPI. ED EXAM, GENERAL - Physical Exam Exam: See Below (Dictation) Course - Vital Signs Last Recorded V/S: Last Vital Signs Temp 36.1 C 01/14/19 14:49 Pulse 69 01/14/19 14:49 Resp 16 01/14/19 14:49 BP 132/81 01/14/19 14:49 Pulse Ox 99 01/14/19 14:49 - Orders/Labs/Meds Orders: Active Orders 24 hr Category Date Time Status Cardiac Monitoring [RC] . DIRECTED Care 01/14/19 14:57 Active EKG Documentation Completion [RC] STAT Care 01/14/19 14:57 Active UA RFX GARCIA AND CULT IF INDIC [URIN] Stat Lab 01/14/19 14:57 Ordered Sodium Chloride 0.9% [Normal Saline] 1,000 ml Med 01/14/19 15:00 Active IV ASDIRECTED Sodium Chloride 0.9% [Saline Flush] Med 01/14/19 14:57 Active 10 ml FLUSH ASDIRECTED PRN Sodium Chloride 0.9% [Saline Flush] Med 01/14/19 14:57 Active 2.5 ml FLUSH ASDIRECTED PRN Saline Lock Insert [OM.PC] Stat Oth 01/14/19 14:57 Ordered Medication Orders Sodium Chloride (Normal Saline) 1,000 mls @ 125 mls/hr IV ASDIRECTED ERICK Last Admin: 01/14/19 15:45 Dose: 125 mls/hr Sodium Chloride (Saline Flush) 10 ml FLUSH ASDIRECTED PRN PRN Reason: Keep Vein Open Last Admin: 01/14/19 15:45 Dose: 10 ml Sodium Chloride (Saline Flush) 2.5 ml FLUSH ASDIRECTED PRN PRN Reason: Keep Vein Open Last Admin: 01/14/19 15:46 Dose: 2.5 ml Labs: Laboratory Tests 01/14/19 01/14/19 01/14/19 Range/Units 14:50 14:50 14:50 WBC 4.66 (4.0-11.0) K/uL RBC 4.12 L (4.50-5.90) M/uL Hgb 11.8 L (13.0-17.0) g/dL Hct 36.6 L (38.0-50.0) % MCV 88.8 (80.0-98.0) fL MCH 28.6 (27.0-32.0) pg MCHC 32.2 (31.0-37.0) g/dL RDW Std Deviation 48.8 (28.0-62.0) fl RDW Coeff of Ethan 15 (11.0-15.0) % Plt Count 242 (150-400) K/uL MPV 9.90 (7.40-12.00) fL Neut % (Auto) 61.8 (48.0-80.0) % Lymph % (Auto) 24.9 (16.0-40.0) % [place] % (Auto) 11.8 (0.0-15.0) % Eos % (Auto) 1.3 (0.0-7.0) % Baso % (Auto) 0.2 (0.0-1.5) % Neut # (Auto) 2.9 (1.4-5.7) K/uL Lymph # (Auto) 1.2 (0.6-2.4) K/uL [place] # (Auto) 0.6 (0.0-0.8) K/uL Eos # (Auto) 0.1 (0.0-0.7) K/uL Baso # (Auto) 0.0 (0.0-0.1) K/uL Nucleated RBC % 0.0 /100WBC Nucleated RBCs # 0 K/uL INR 0.99 APTT 25.9 (18.6-31.3) SEC Sodium 143 (136-148) mmol/L Potassium 4.0 (3.5-5.1) mmol/L Chloride 106 (98-107) mmol/L Carbon Dioxide 26.4 (21.0-32.0) mmol/L BUN 15 (7.0-18.0) mg/dL Creatinine 1.0 (0.8-1.3) mg/dL Est Cr Clr Drug Dosing 63.35 mL/min Estimated GFR (MDRD) > 60.0 ml/min Glucose 139 H (74-106) mg/dL Calcium 8.7 (8.5-10.1) mg/dL Total Bilirubin 0.3 (0.2-1.0) mg/dL AST 18 (15-37) IU/L ALT 10 L (14-63) IU/L Alkaline Phosphatase 76 (46-116) U/L Troponin I < 0.050 (0.000-0.056) ng/mL Total Protein 7.1 (6.4-8.2) g/dL Albumin 3.5 (3.4-5.0) g/dL Globulin 3.6 (2.6-4.0) g/dL Albumin/Globulin Ratio 1.0 (0.9-1.6) Meds: Medications Generic Name Dose Route Start Last Admin Trade Name Freq PRN Reason Stop Dose Admin Sodium Chloride 1,000 mls @ 125 mls/hr 01/14/19 15:00 01/14/19 15:45 Normal Saline IV 125 mls/hr ASDIRECTED ERICK Administration Sodium Chloride 10 ml 01/14/19 14:57 01/14/19 15:45 Saline Flush FLUSH 10 ml ASDIRECTED PRN Administration Keep Vein Open Sodium Chloride 2.5 ml 01/14/19 14:57 01/14/19 15:46 Saline Flush FLUSH 2.5 ml ASDIRECTED PRN Administration Keep Vein Open Discontinued Medications Generic Name Dose Route Start Last Admin Trade Name Isaacq PRN Reason Stop Dose Admin Aspirin 324 mg 01/14/19 15:06 01/14/19 15:45 Aspirin PO 01/14/19 15:07 324 mg ONETIME ONE Administration Departure - Departure Time of Disposition: 16:08 Disposition: Refer to Observation Condition: Good Clinical Impression: Dizziness Chest pain Qualifiers: Chest pain type: unspecified Qualified Code(s): R07.9 - Chest pain, unspecified - Discharge Information Forms: ED Department Discharge - My Orders Last 24 Hours: My Active Orders 01/14/19 14:57 Cardiac Monitoring [RC] . DIRECTED EKG Documentation Completion [RC] STAT UA RFX GARCIA AND CULT IF INDIC [URIN] Stat Sodium Chloride 0.9% [Saline Flush] 10 ml FLUSH ASDIRECTED PRN Sodium Chloride 0.9% [Saline Flush] 2.5 ml FLUSH ASDIRECTED PRN Saline Lock Insert [OM.PC] Stat 01/14/19 15:00 Sodium Chloride 0.9% [Normal Saline] 1,000 ml IV ASDIRECTED - Assessment/Plan Last 24 Hours: My Active Orders 01/14/19 14:57 Cardiac Monitoring [RC] . DIRECTED EKG Documentation Completion [RC] STAT UA RFX GARCIA AND CULT IF INDIC [URIN] Stat Sodium Chloride 0.9% [Saline Flush] 10 ml FLUSH ASDIRECTED PRN Sodium Chloride 0.9% [Saline Flush] 2.5 ml FLUSH ASDIRECTED PRN Saline Lock Insert [OM.PC] Stat 01/14/19 15:00 Sodium Chloride 0.9% [Normal Saline] 1,000 ml IV ASDIRECTED
[2019-01-14] MEDS ORDERED: Aspirin 81 MG Tab.Chew PO ONE (15:06)
[2019-01-14 15:27] LABS: BLOOD UREA NITROGEN,BUN 15 mg/dL (7.0-18.0); CARBON DIOXIDE,CO2 26.4 mmol/L (21.0-32.0); CHLORIDE,CL 106 mmol/L (98-107); GLUCOSE RANDOM 139 mg/dL (74-106); SODIUM,NA 143 mmol/L (136-148)
--- NOTE | 2019-01-14 15:55 | CR ---
INDICATION: Chest TECHNIQUE: Single view chest. FINDINGS: The lungs are clear. The heart, mediastinum and pulmonary vessels are of normal size. There is no evidence of pleural disease. IMPRESSION: Negative chest. Dictated by Maci Summers MD @ Jan 14 2019 3:54PM Signed by Dr. Maci Summers @ Jan 14 2019 3:54PM
--- NOTE | 2019-01-14 15:59 | CT ---
Chest pain dizzy Technique noncontrast head CT scan. COMPARISON: Head CT 08/12/2018 Findings: Axial noncontrast images through the brain parenchyma demonstrates no acute intracranial hemorrhage or mass. No midline shift. No abnormal extra-axial air fluid collections. Mild generalized parenchymal volume loss. Paranasal sinuses mastoid air cells skull and scalp appear unremarkable. IMPRESSION: 1. No acute intracranial hemorrhage or mass. Please note that all CT scans at this facility use dose modulation, iterative reconstruction, and/or weight-based dosing when appropriate to reduce radiation dose to as low as reasonably achievable. Dictated by Maci Summers MD @ Jan 14 2019 3:54PM Signed by Dr. Maci Summers @ Jan 14 2019 3:57PM
[2019-01-14] MEDS ORDERED: Acetaminophen 325 MG Tab PO PRN (16:34)
[2019-01-14] MEDS ORDERED: oxyCODONE 5 MG Tab PO PRN (16:34)
[2019-01-14] MEDS ORDERED: Docusate Sodium 100 MG Cap PO PRN (16:34)
[2019-01-14] MEDS ORDERED: Ondansetron 4 MG Tab.DIS PO PRN (16:34)
--- NOTE | 2019-01-14 16:44 | PCM.HP.2 ---
H&P History of Present Illness - General Date of Service: 01/14/19 Admit Problem/Dx: Admission Diagnosis/Problem Admission Diagnosis/Problem Chest pain Source of Information: Patient History Limitations: Reports: No Limitations - History of Present Illness Initial Comments - Free Text/Narative: The patient is a 73-year-old gentleman who had presented to the emergency department with a complaint of left-sided chest pain. He also reported that he was having some pain in his left arm as well as his left leg and was having headache as well. The patient said that the pain started suddenly when he was resting and it has somewhat improved since presenting to the emergency department. The patient has had multiple admissions for chest pain. The patient does have a significant history of coronary artery disease, stent placement, orthostatic hypotension, myocardial infarction and seizure-like activity. The patient had no specific aggravating or relieving factors for this. The patient also reported that he had some dizziness and lightheadedness. He is denied any diaphoresis. No nausea or vomiting. No abdominal pain. The patient says that he has been compliant with his medications. Onset of Symptoms: Reports: Today Duration of Symptoms: Reports: Hour(s):, Improving Location: Reports: Chest Quality: Reports: Pressure, Stabbing Severity: Moderate Improves with: Reports: Medication Worsens with: Reports: Breathing, Movement Associated Symptoms: Reports: Headaches, Weakness Left Chest Pain Score (Numeric/FACES): 7 - Related Data Allergies/Adverse Reactions: Allergies Allergy/AdvReac Type Severity Reaction Status Date / Time No Known Allergies Allergy Verified 09/25/18 20:19 Home Medications: Home Meds Carvedilol 3.125 mg PO BID 09/22/16 [History] Isosorbide Mononitrate [Imdur] 30 mg PO DAILY 09/22/16 [History] Pantoprazole [ProTONIX] 40 mg PO ACBREAKFAST 09/22/16 [History] Pravastatin [Pravachol] 40 mg PO BEDTIME 09/22/16 [History] Clopidogrel [Plavix] 75 mg PO DAILY 04/19/17 [History] PARoxetine [Paxil] 10 mg PO DAILY 04/19/17 [History] Aspirin [Halfprin] 81 mg PO DAILY #0 tab.ec 04/20/17 [Rx] Meloxicam [Mobic] 15 mg PO WITHBREAKFAST 03/07/18 [History] Nitroglycerin [Nitrostat] 0.4 mg SL Q5M PRN MDD 3 03/07/18 [History] levETIRAcetam [Levetiracetam ER] 750 mg PO BEDTIME 03/07/18 [History] Past Medical History - Past Health History Medical/Surgical History: Denies Medical/Surgical History HEENT History: Reports: Other (See Below) Other HEENT History: uses reading glasses Cardiovascular History: Reports: CAD, High Cholesterol, Hypertension, [place], Stents , Other (See Below) Other Cardiovascular History: [place] in 2009 Respiratory History: Reports: None Gastrointestinal History: Reports: GERD Genitourinary History: Reports: None Musculoskeletal History: Reports: None Other Musculoskeletal History: has arthritis in back Neurological History: Reports: Vertigo, Other (See Below) Other Neuro History: hx of Claustrophobia Psychiatric History: Reports: Anxiety, Depression, Other (See Below) Other Psychiatric History: Claustrophobia 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, Type II Hematologic History: Reports: Anticoagulation Therapy Immunologic History: Reports: None Oncologic (Cancer) History: Reports: None Dermatologic History: Reports: None - Infectious Disease History Infectious Disease History: Reports: None - Past Surgical History Head Surgeries/Procedures: Reports: None HEENT Surgical History: Reports: Oral Surgery, Tonsillectomy, Other (See Below) GI Surgical History: Reports: Appendectomy Social & Family History - Family History Family Medical History: Noncontributory Cardiac: Reports: NV Respiratory: Reports: None Endocrine/Metabolic: Reports: Diabetes, Type I Hematologic: Reports: None Oncologic: Reports: Other (See Below) Other Oncologic Family History: Father side has cancer but patient doesn't know exactly what kind of CA - Tobacco Use Smoking Status *Q: Never Smoker Second Hand Smoke Exposure: No - Caffeine Use Caffeine Use: Reports: Coffee Caffeine Use Comment: daily - Recreational Drug Use Recreational Drug Use: No - Living Situation & Occupation Living situation: Reports: Occupation: Retired H&P Review of Systems - Review of Systems: Review Of Systems: See Below General: Reports: Weakness HEENT: Reports: No Symptoms Pulmonary: Reports: Shortness of Breath Cardiovascular: Reports: Chest Pain Gastrointestinal: Reports: No Symptoms Genitourinary: Reports: No Symptoms Musculoskeletal: Reports: No Symptoms Skin: Reports: No Symptoms Psychiatric: Reports: No Symptoms Neurological: Reports: Dizziness Hematologic/Lymphatic: Reports: No Symptoms Immunologic: Reports: No Symptoms Exam - Exam Exam: See Below - Vital Signs Vital Signs: Last Vital Signs Temp 36.1 C 01/14/19 14:49 Pulse 69 01/14/19 14:49 Resp 16 01/14/19 14:49 BP 132/81 01/14/19 14:49 Pulse Ox 99 01/14/19 14:49 Weight: 71.214 kg - Exam Quality Assessment: Supplemental Oxygen General: Alert, Oriented, Cooperative, Other (Appears older) HEENT: Conjunctiva Clear (Xanthelasma), EACs Clear (Dry), EOMI, Pupils Equal ( Arcus senilis), PERRLA. No: Mucosa Moist & Tolar Neck: Supple, Trachea Midline Lungs: Clear to Auscultation, Normal Respiratory Effort Cardiovascular: Regular Rate, Regular Rhythm GI/Abdominal Exam: Normal Bowel Sounds, Soft, Non-Tender, No Distention. No: Guarding, Rigid Back Exam: Normal Inspection, Full Range of Motion Extremities: Normal Inspection, Normal Range of Motion, No Pedal Edema Skin: Warm, Dry, Intact Neurological: Cranial Nerves Intact Neuro Extensive - Mental Status: Alert, Oriented x3, Normal Mood/Affect Psychiatric: Alert, Normal Affect, Normal Mood - Patient Data Lab Results Last 24 hrs: Laboratory Results - last 24 hr 01/14/19 01/14/19 01/14/19 Range/Units 14:50 14:50 14:50 WBC 4.66 (4.0-11.0) K/uL RBC 4.12 L (4.50-5.90) M/uL Hgb 11.8 L (13.0-17.0) g/dL Hct 36.6 L (38.0-50.0) % MCV 88.8 (80.0-98.0) fL MCH 28.6 (27.0-32.0) pg MCHC 32.2 (31.0-37.0) g/dL RDW Std Deviation 48.8 (28.0-62.0) fl RDW Coeff of Ethan 15 (11.0-15.0) % Plt Count 242 (150-400) K/uL MPV 9.90 (7.40-12.00) fL Neut % (Auto) 61.8 (48.0-80.0) % Lymph % (Auto) 24.9 (16.0-40.0) % [place] % (Auto) 11.8 (0.0-15.0) % Eos % (Auto) 1.3 (0.0-7.0) % Baso % (Auto) 0.2 (0.0-1.5) % Neut # (Auto) 2.9 (1.4-5.7) K/uL Lymph # (Auto) 1.2 (0.6-2.4) K/uL [place] # (Auto) 0.6 (0.0-0.8) K/uL Eos # (Auto) 0.1 (0.0-0.7) K/uL Baso # (Auto) 0.0 (0.0-0.1) K/uL Nucleated RBC % 0.0 /100WBC Nucleated RBCs # 0 K/uL INR 0.99 APTT 25.9 (18.6-31.3) SEC Sodium 143 (136-148) mmol/L Potassium 4.0 (3.5-5.1) mmol/L Chloride 106 (98-107) mmol/L Carbon Dioxide 26.4 (21.0-32.0) mmol/L BUN 15 (7.0-18.0) mg/dL Creatinine 1.0 (0.8-1.3) mg/dL Est Cr Clr Drug Dosing 63.35 mL/min Estimated GFR (MDRD) > 60.0 ml/min Glucose 139 H (74-106) mg/dL Calcium 8.7 (8.5-10.1) mg/dL Total Bilirubin 0.3 (0.2-1.0) mg/dL AST 18 (15-37) IU/L ALT 10 L (14-63) IU/L Alkaline Phosphatase 76 (46-116) U/L Troponin I < 0.050 (0.000-0.056) ng/mL Total Protein 7.1 (6.4-8.2) g/dL Albumin 3.5 (3.4-5.0) g/dL Globulin 3.6 (2.6-4.0) g/dL Albumin/Globulin Ratio 1.0 (0.9-1.6) Result Diagrams: 01/14/19 14:50 01/14/19 14:50 - Problem List (1) Atypical chest pain SNOMED Code(s): 288726640 ICD Code: R07.89 - OTHER CHEST PAIN Status: Acute Priority: High Current Visit: Yes (2) Dizziness SNOMED Code(s): 100301874, 322974639 ICD Code: R42 - DIZZINESS AND GIDDINESS Status: Chronic Priority: High Current Visit: Yes (3) Seizure SNOMED Code(s): 46612371 ICD Code: R56.9 - UNSPECIFIED CONVULSIONS Status: Chronic Priority: High Current Visit: Yes (4) HTN (hypertension) SNOMED Code(s): 25813804 ICD Code: I10 - ESSENTIAL (PRIMARY) HYPERTENSION Status: Chronic Priority : High Current Visit: Yes Qualifiers: Hypertension type: essential hypertension Qualified Code(s): I10 - Essential (primary) hypertension (5) History of coronary artery stent placement SNOMED Code(s): 585107793, 113771284 ICD Code: Z95.5 - PRESENCE OF CORONARY ANGIOPLASTY IMPLANT AND GRAFT Status : Chronic Priority: High Current Visit: Yes Problem List Initiated/Reviewed/Updated: Yes Orders Last 24hrs: Active Orders 24 hr Category Date Time Status Patient Status [ADT] Stat ADT 01/14/19 16:18 Active Cardiac Monitoring [RC] . DIRECTED Care 01/14/19 14:57 Active Cardiac Monitoring [RC] CONTINUOUS Care 01/14/19 16:40 Ordered EKG Documentation Completion [RC] AM Care 01/15/19 08:00 Ordered EKG Documentation Completion [RC] STAT Care 01/14/19 14:57 Active Oxygen Therapy [RC] PRN Care 01/14/19 16:39 Ordered Up ad Violeta [RC] ASDIRECTED Care 01/14/19 16:34 Ordered VTE/DVT Education [RC] PER UNIT ROUTINE Care 01/14/19 16:39 Ordered Vital Signs [RC] Q4H Care 01/14/19 16:39 Ordered Heart Healthy Diet [DIET] Diet 01/14/19 Dinner Ordered CBC WITH AUTO DIFF [HEME] AM Lab 01/15/19 05:11 Ordered COMPREHENSIVE METABOLIC PN,CMP [CHEM] AM Lab 01/15/19 05:11 Ordered TROPONIN I [CHEM] Q6H Lab 01/14/19 19:00 Ordered TROPONIN I [CHEM] Q6H Lab 01/15/19 01:00 Ordered UA RFX GARCIA AND CULT IF INDIC [URIN] Stat Lab 01/14/19 14:57 Ordered Acetaminophen [Tylenol] Med 01/14/19 16:34 Ordered 650 mg PO Q4H PRN Aspirin [Halfprin] Med 01/15/19 09:00 Ordered 81 mg PO DAILY Carvedilol [Coreg] Med 01/14/19 21:00 Ordered 3.125 mg PO BID Clopidogrel [Plavix] Med 01/15/19 09:00 Ordered 75 mg PO DAILY Docusate Sodium [Colace] Med 01/14/19 16:34 Ordered 100 mg PO BID PRN Heparin Sodium Med 01/14/19 16:45 Ordered 5,000 units SUBCUT Q8H Isosorbide Mononitrate [Imdur] Med 01/15/19 09:00 Ordered 30 mg PO DAILY Meloxicam Med 01/15/19 08:00 Ordered 15 mg PO WITHBREAKFAST Ondansetron [Zofran ODT] Med 01/14/19 16:34 Ordered 4 mg PO Q6H PRN PARoxetine [Paxil] Med 01/15/19 09:00 Ordered 10 mg PO DAILY Pantoprazole [ProTONIX] Med 01/15/19 07:30 Ordered 40 mg PO ACBREAKFAST Pravastatin [Pravachol] Med 01/14/19 21:00 Ordered 40 mg PO BEDTIME Sodium Chloride 0.9% [Normal Saline] 1,000 ml Med 01/14/19 15:00 Active IV ASDIRECTED Sodium Chloride 0.9% [Normal Saline] 1,000 ml Med 01/14/19 16:45 Ordered IV ASDIRECTED Sodium Chloride 0.9% [Saline Flush] Med 01/14/19 14:57 Active 10 ml FLUSH ASDIRECTED PRN Sodium Chloride 0.9% [Saline Flush] Med 01/14/19 14:57 Active 2.5 ml FLUSH ASDIRECTED PRN levETIRAcetam [Levetiracetam ER] Med 01/14/19 21:00 Ordered 750 mg PO BEDTIME oxyCODONE Med 01/14/19 16:34 Ordered 5 mg PO Q4H PRN Saline Lock Insert [OM.PC] Stat Oth 01/14/19 14:57 Ordered Resuscitation Status Routine Resus Stat 01/14/19 16:34 Ordered Medication Orders Acetaminophen (Tylenol) 650 mg PO Q4H PRN PRN Reason: Pain (Mild 1-3)/fever Aspirin (Halfprin) 81 mg PO DAILY [facility] Carvedilol (Coreg) 3.125 mg PO BID [facility] Clopidogrel Bisulfate (Plavix) 75 mg PO DAILY [facility] Docusate Sodium (Colace) 100 mg PO BID PRN PRN Reason: Constipation Heparin Sodium (Porcine) (Heparin Sodium) 5,000 units SUBCUT Q8H [facility] Sodium Chloride (Normal Saline) 1,000 mls @ 125 mls/hr IV ASDIRECTED [facility] Last Admin: 01/14/19 15:45 Dose: 125 mls/hr Sodium Chloride (Normal Saline) 1,000 mls @ 75 mls/hr IV ASDIRECTED [facility] Isosorbide Mononitrate (Imdur) 30 mg PO DAILY [facility] Levetiracetam (Keppra) 750 mg PO BEDTIME [facility] Ondansetron HCl (Zofran Odt) 4 mg PO Q6H PRN PRN Reason: nausea, able to take PO Oxycodone HCl (Oxycodone) 5 mg PO Q4H PRN PRN Reason: Pain (moderate 4-6) Pantoprazole Sodium (Protonix) 40 mg PO ACBREAKFAST [facility] Paroxetine HCl (Paxil) 10 mg PO DAILY [facility] Meloxicam 15 Mg 1 each PO WITHBREAKFAST [facility] Pravastatin Sodium (Pravachol) 40 mg PO BEDTIME [facility] Sodium Chloride (Saline Flush) 10 ml FLUSH ASDIRECTED PRN PRN Reason: Keep Vein Open Last Admin: 01/14/19 15:45 Dose: 10 ml Sodium Chloride (Saline Flush) 2.5 ml FLUSH ASDIRECTED PRN PRN Reason: Keep Vein Open Last Admin: 01/14/19 15:46 Dose: 2.5 ml Assessment/Plan Comment:: The patient is a medically complex 73-year-old gentleman who will be admitted to observation for chest pain. The patient has had multiple admissions for chest pain that have been negative previously. The patient does have a significant history of coronary artery disease with stenting. I have ordered 2 more troponins every 6 hours. He'll be kept on telemetry. The patient will also have a heart healthy diet. The patient will also have a repeat EKG in the morning. The patient will also have DVT prophylaxis with the use of heparin 5000 units subcutaneous every 8 hours. The patient has been encouraged to ambulate. If the patient has had negative troponins and his EKG is unchanged the patient should be appropriate for discharge tomorrow. The patient does have a history of seizure disorder and he'll be kept on his Keppra. Patient also has been taking all of his home medications and nasal be continued. - Mortality Measure Prognosis:: Good
[2019-01-14] MEDS: Sodium Chloride 0.9% 1,000 ML IV SCH (17:04)
[2019-01-14] MEDS: Heparin Sodium 5,000 Units/ML Vial SUBCUT SCH (17:13)
[2019-01-14] MEDS ORDERED: Pravastatin 40 MG Tab PO SCH (21:00)
[2019-01-14] MEDS ORDERED: levETIRAcetam 500 MG Tab PO SCH ×2 (21:00→22:30)
[2019-01-14] MEDS: Carvedilol 3.125 MG Tab PO SCH (22:00)
[2019-01-15] MEDS: Heparin Sodium 5,000 Units/ML Vial SUBCUT SCH ×2 (00:09→08:35)
[2019-01-15] MEDS: Sodium Chloride 0.9% 1,000 ML IV SCH (01:55)
[2019-01-15 06:45] LABS: BLOOD UREA NITROGEN,BUN 9 mg/dL (7.0-18.0); CARBON DIOXIDE,CO2 28.3 mmol/L (21.0-32.0); CHLORIDE,CL 109 mmol/L (98-107); GLUCOSE RANDOM 104 mg/dL (74-106); POTASSIUM,K 4.2 mmol/L (3.5-5.1); SODIUM,NA 145 mmol/L (136-148)
[2019-01-15] MEDS ORDERED: Pantoprazole 40 MG Tab.CR PO SCH (07:30)
[2019-01-15 08:42] VITALS: BP 122/78; PULSE 68
[2019-01-15] MEDS: Carvedilol 3.125 MG Tab PO SCH (08:42)
[2019-01-15] MEDS ORDERED: ISOSORBIDE MONONITRATE 10 MG PO SCH (09:00)
[2019-01-15] MEDS ORDERED: Clopidogrel 75 MG Tab PO SCH (09:00)
[2019-01-15] MEDS ORDERED: Aspirin 81 MG Tab.EC PO SCH (09:00)
[2019-01-15] MEDS ORDERED: Isosorbide Mononitrate 30 MG Tab.ER PO SCH (09:00)
[2019-01-15] MEDS ORDERED: PARoxetine 20 MG Tab PO SCH (09:00)
--- NOTE | 2019-01-15 09:20 | PCM.DCSUM1 ---
Discharge Summary - Hospital Course Brief History: This 73-year-old male with pmh of CAD, s/p stenting in 2017, HFpEF, chronic dizziness, history of seizures who presented to the ED with a complaint of left-sided chest pain. He also reported that he was having some pain in his left arm as well as his left leg and was having headache as well. The patient said that the pain started suddenly when he was resting and it has somewhat improved since presenting to the emergency department. The patient has had multiple admissions for chest pain. The patient had no specific aggravating or relieving factors for this. The patient also reported that he had some dizziness and lightheadedness. He is denied any diaphoresis. No nausea or vomiting. No abdominal pain. The patient says that he has been compliant with his medications. Diagnosis: Stroke: No - Discharge Data Discharge Date: 01/15/19 Discharge Disposition: Home, Self-Care 01 Condition: Good - Referral to Home Health Primary Care Physician: PCP Unknown - Patient Instructions Diet: Heart Healthy Diet Activity: No Strenuous Activities Driving: Do Not Drive Showering/Bathing: May Shower Notify Provider of: Fever, Increased Pain, Swelling and Redness, Drainage, Nausea and/or Vomiting - Discharge Plan *PRESCRIPTION DRUG MONITORING PROGRAM REVIEWED*: Not Applicable *COPY OF PRESCRIPTION DRUG MONITORING REPORT IN PATIENT SWEETIE: Not Applicable Home Medications: Home Meds Carvedilol 3.125 mg PO BID 09/22/16 [History] Isosorbide Mononitrate [Imdur] 10 mg PO DAILY 09/22/16 [History] Pantoprazole [ProTONIX] 40 mg PO BEDTIME 09/22/16 [History] Pravastatin [Pravachol] 40 mg PO BEDTIME 09/22/16 [History] Clopidogrel [Plavix] 75 mg PO DAILY 04/19/17 [History] PARoxetine [Paxil] 10 mg PO BEDTIME 04/19/17 [History] Aspirin [Halfprin] 81 mg PO DAILY #0 tab.ec 04/20/17 [Rx] Meloxicam [Mobic] 15 mg PO WITHBREAKFAST 03/07/18 [History] Nitroglycerin [Nitrostat] 0.4 mg SL Q5M PRN MDD 3 03/07/18 [History] Ranolazine [Ranexa] 500 mg PO BID 01/14/19 [History] levETIRAcetam [Levetiracetam] 500 mg PO BEDTIME 01/14/19 [History] Oxygen Therapy Mode: Room Air Referrals: Bo Lopez MD [Physician] - (has previousl scheduled appointment, try move sooner if possible. Stress test ordered.) Vernell Donovan MD [Physician] - (1-2 weeks) - Discharge Summary/Plan Comment DC Time >30 min.: No Discharge Summary/Plan Comment: Admitting Diagnoses: Chest pain Discharge Diagnoses: Chest pain -resolved Other PMH: HTN CAD HX PCI HFpEF Chronic dizziness Seizures Dino was admitted with atypical chest pain. Troponins were trended and returned negative. No changes on EKG. He is pain free and asking for discharge home today. Pain doesn't sound cardiac in nature, but due to significant history he was monitored. No medication changes, he was encouraged to be compliant with all medications. He will be arranged follow up with PCP and Dr Lopez for stress test. He declined this the previous appointment with Dr Lopez. He is to return to ED or clinic if concerns should arise. - General Info Date of Service: 01/15/19 Admission Dx/Problem (Free Text: Admission Diagnosis/Problem Admission Diagnosis/Problem Chest pain - Review of Systems General: Reports: No Symptoms HEENT: Reports: No Symptoms Pulmonary: Reports: No Symptoms. Denies: Shortness of Breath Cardiovascular: Reports: No Symptoms. Denies: Chest Pain Gastrointestinal: Reports: No Symptoms. Denies: Abdominal Pain, Nausea, Vomiting Genitourinary: Reports: No Symptoms Neurological: Reports: No Symptoms Psychiatric: Reports: No Symptoms - Patient Data Vitals - Most Recent: Last Vital Signs Temp 98.5 F 01/15/19 07:37 Pulse 68 01/15/19 08:42 Resp 16 01/15/19 07:37 BP 122/78 01/15/19 08:42 Pulse Ox 94 L 01/15/19 07:37 Weight - Most Recent: 71.214 kg I&O - Last 24 hours: Intake & Output 01/14/19 01/15/19 01/15/19 22:59 06:59 14:59 Intake Total 1237 Output Total 400 Balance 837 Lab Results - Last 24 hrs: Laboratory Results - last 24 hr 09/01/14/19 01/14/19 Range/Units 14:50 14:50 14:50 WBC 4.66 (4.0-11.0) K/uL RBC 4.12 L (4.50-5.90) M/uL Hgb 11.8 L (13.0-17.0) g/dL Hct 36.6 L (38.0-50.0) % MCV 88.8 (80.0-98.0) fL MCH 28.6 (27.0-32.0) pg MCHC 32.2 (31.0-37.0) g/dL RDW Std Deviation 48.8 (28.0-62.0) fl RDW Coeff of Ethan 15 (11.0-15.0) % Plt Count 242 (150-400) K/uL MPV 9.90 (7.40-12.00) fL Neut % (Auto) 61.8 (48.0-80.0) % Lymph % (Auto) 24.9 (16.0-40.0) % Emmet % (Auto) 11.8 (0.0-15.0) % Eos % (Auto) 1.3 (0.0-7.0) % Baso % (Auto) 0.2 (0.0-1.5) % Neut # (Auto) 2.9 (1.4-5.7) K/uL Lymph # (Auto) 1.2 (0.6-2.4) K/uL Emmet # (Auto) 0.6 (0.0-0.8) K/uL Eos # (Auto) 0.1 (0.0-0.7) K/uL Baso # (Auto) 0.0 (0.0-0.1) K/uL Nucleated RBC % 0.0 /100WBC Nucleated RBCs # 0 K/uL INR 0.99 APTT 25.9 (18.6-31.3) SEC Sodium 143 (136-148) mmol/L Potassium 4.0 (3.5-5.1) mmol/L Chloride 106 (98-107) mmol/L Carbon Dioxide 26.4 (21.0-32.0) mmol/L BUN 15 (7.0-18.0) mg/dL Creatinine 1.0 (0.8-1.3) mg/dL Est Cr Clr Drug Dosing 63.35 mL/min Estimated GFR (MDRD) > 60.0 ml/min Glucose 139 H (74-106) mg/dL Calcium 8.7 (8.5-10.1) mg/dL Total Bilirubin 0.3 (0.2-1.0) mg/dL AST 18 (15-37) IU/L ALT 10 L (14-63) IU/L Alkaline Phosphatase 76 (46-116) U/L Troponin I < 0.050 (0.000-0.056) ng/mL Total Protein 7.1 (6.4-8.2) g/dL Albumin 3.5 (3.4-5.0) g/dL Globulin 3.6 (2.6-4.0) g/dL Albumin/Globulin Ratio 1.0 (0.9-1.6) Urine Color Urine Appearance Urine pH (5.0-8.0) Ur Specific Hosmer (1.001-1.035) Urine Protein (NEGATIVE) mg/dL Urine Glucose (UA) (NEGATIVE) mg/dL Urine Ketones (NEGATIVE) mg/dL Urine Occult Blood (NEGATIVE) Urine Nitrite (NEGATIVE) Urine Bilirubin (NEGATIVE) Urine Urobilinogen (<2.0) EU/dL Ur Leukocyte Esterase (NEGATIVE) 01/14/19 01/15/19 01/15/19 Range/Units 19:10 01:00 02:45 WBC (4.0-11.0) K/uL RBC (4.50-5.90) M/uL Hgb (13.0-17.0) g/dL Hct (38.0-50.0) % MCV (80.0-98.0) fL MCH (27.0-32.0) pg MCHC (31.0-37.0) g/dL RDW Std Deviation (28.0-62.0) fl RDW Coeff of Ethan (11.0-15.0) % Plt Count (150-400) K/uL MPV (7.40-12.00) fL Neut % (Auto) (48.0-80.0) % Lymph % (Auto) (16.0-40.0) % Emmet % (Auto) (0.0-15.0) % Eos % (Auto) (0.0-7.0) % Baso % (Auto) (0.0-1.5) % Neut # (Auto) (1.4-5.7) K/uL Lymph # (Auto) (0.6-2.4) K/uL Emmet # (Auto) (0.0-0.8) K/uL Eos # (Auto) (0.0-0.7) K/uL Baso # (Auto) (0.0-0.1) K/uL Nucleated RBC % /100WBC Nucleated RBCs # K/uL INR APTT (18.6-31.3) SEC Sodium (136-148) mmol/L Potassium (3.5-5.1) mmol/L Chloride (98-107) mmol/L Carbon Dioxide (21.0-32.0) mmol/L BUN (7.0-18.0) mg/dL Creatinine (0.8-1.3) mg/dL Est Cr Clr Drug Dosing mL/min Estimated GFR (MDRD) ml/min Glucose (74-106) mg/dL Calcium (8.5-10.1) mg/dL Total Bilirubin (0.2-1.0) mg/dL AST (15-37) IU/L ALT (14-63) IU/L Alkaline Phosphatase (46-116) U/L Troponin I < 0.050 < 0.050 (0.000-0.056) ng/mL Total Protein (6.4-8.2) g/dL Albumin (3.4-5.0) g/dL Globulin (2.6-4.0) g/dL Albumin/Globulin Ratio (0.9-1.6) Urine Color YELLOW Urine Appearance CLEAR Urine pH 5.5 (5.0-8.0) Ur Specific Hosmer 1.015 (1.001-1.035) Urine Protein NEGATIVE (NEGATIVE) mg/dL Urine Glucose (UA) NEGATIVE (NEGATIVE) mg/dL Urine Ketones NEGATIVE (NEGATIVE) mg/dL Urine Occult Blood NEGATIVE (NEGATIVE) Urine Nitrite NEGATIVE (NEGATIVE) Urine Bilirubin NEGATIVE (NEGATIVE) Urine Urobilinogen 0.2 (<2.0) EU/dL Ur Leukocyte Esterase NEGATIVE (NEGATIVE) 01/15/19 01/15/19 Range/Units 05:55 05:55 WBC 4.72 (4.0-11.0) K/uL RBC 3.87 L (4.50-5.90) M/uL Hgb 11.0 L (13.0-17.0) g/dL Hct 34.5 L (38.0-50.0) % MCV 89.1 (80.0-98.0) fL MCH 28.4 (27.0-32.0) pg MCHC 31.9 (31.0-37.0) g/dL RDW Std Deviation 49.4 (28.0-62.0) fl RDW Coeff of Ethan 15 (11.0-15.0) % Plt Count 225 (150-400) K/uL MPV 10.10 (7.40-12.00) fL Neut % (Auto) 51.9 (48.0-80.0) % Lymph % (Auto) 33.5 (16.0-40.0) % Emmet % (Auto) 12.5 (0.0-15.0) % Eos % (Auto) 1.9 (0.0-7.0) % Baso % (Auto) 0.2 (0.0-1.5) % Neut # (Auto) 2.5 (1.4-5.7) K/uL Lymph # (Auto) 1.6 (0.6-2.4) K/uL Emmet # (Auto) 0.6 (0.0-0.8) K/uL Eos # (Auto) 0.1 (0.0-0.7) K/uL Baso # (Auto) 0.0 (0.0-0.1) K/uL Nucleated RBC % 0.0 /100WBC Nucleated RBCs # 0 K/uL INR APTT (18.6-31.3) SEC Sodium 145 (136-148) mmol/L Potassium 4.2 (3.5-5.1) mmol/L Chloride 109 H (98-107) mmol/L Carbon Dioxide 28.3 (21.0-32.0) mmol/L BUN 9 (7.0-18.0) mg/dL Creatinine 1.0 (0.8-1.3) mg/dL Est Cr Clr Drug Dosing 63.35 mL/min Estimated GFR (MDRD) > 60.0 ml/min Glucose 104 (74-106) mg/dL Calcium 8.3 L (8.5-10.1) mg/dL Total Bilirubin 0.5 (0.2-1.0) mg/dL AST 20 (15-37) IU/L ALT 12 L (14-63) IU/L Alkaline Phosphatase 65 (46-116) U/L Troponin I (0.000-0.056) ng/mL Total Protein 6.6 (6.4-8.2) g/dL Albumin 3.1 L (3.4-5.0) g/dL Globulin 3.5 (2.6-4.0) g/dL Albumin/Globulin Ratio 0.9 (0.9-1.6) Urine Color Urine Appearance Urine pH (5.0-8.0) Ur Specific Hosmer (1.001-1.035) Urine Protein (NEGATIVE) mg/dL Urine Glucose (UA) (NEGATIVE) mg/dL Urine Ketones (NEGATIVE) mg/dL Urine Occult Blood (NEGATIVE) Urine Nitrite (NEGATIVE) Urine Bilirubin (NEGATIVE) Urine Urobilinogen (<2.0) EU/dL Ur Leukocyte Esterase (NEGATIVE) Med Orders - Current: Current Medications Acetaminophen (Tylenol) 650 mg PO Q4H PRN PRN Reason: Pain (Mild 1-3)/fever Last Admin: 01/14/19 17:10 Dose: 650 mg Aspirin (Halfprin) 81 mg PO DAILY [facility] Last Admin: 01/15/19 08:38 Dose: 81 mg Carvedilol (Coreg) 3.125 mg PO BID [facility] Last Admin: 01/15/19 08:42 Dose: 3.125 mg Clopidogrel Bisulfate (Plavix) 75 mg PO DAILY [facility] Last Admin: 01/15/19 08:38 Dose: 75 mg Docusate Sodium (Colace) 100 mg PO BID PRN PRN Reason: Constipation Heparin Sodium (Porcine) (Heparin Sodium) 5,000 units SUBCUT Q8H [facility] Last Admin: 01/15/19 08:35 Dose: 5,000 units Sodium Chloride (Normal Saline) 1,000 mls @ 75 mls/hr IV ASDIRECTED [facility] Last Admin: 01/15/19 01:55 Dose: 75 mls/hr Levetiracetam (Keppra) 500 mg PO BEDTIME [facility] Last Admin: 01/14/19 22:35 Dose: 500 mg Isosorbide Mononitrate 10mgPt Own 1 each PO DAILY [facility] Last Admin: 01/15/19 08:32 Dose: Not Given Ondansetron HCl (Zofran Odt) 4 mg PO Q6H PRN PRN Reason: nausea, able to take PO Oxycodone HCl (Oxycodone) 5 mg PO Q4H PRN PRN Reason: Pain (moderate 4-6) Last Admin: 01/14/19 19:54 Dose: 5 mg Pantoprazole Sodium (Protonix) 40 mg PO ACBREAKFAST [facility] Last Admin: 01/15/19 06:36 Dose: 40 mg Paroxetine HCl (Paxil) 10 mg PO DAILY [facility] Last Admin: 01/15/19 08:35 Dose: 10 mg Meloxicam 15 Mg 1 each PO WITHBREAKFAST [facility] Last Admin: 01/15/19 08:32 Dose: Not Given Pravastatin Sodium (Pravachol) 40 mg PO BEDTIME [facility] Last Admin: 01/14/19 22:00 Dose: 40 mg Sodium Chloride (Saline Flush) 10 ml FLUSH ASDIRECTED PRN PRN Reason: Keep Vein Open Last Admin: 01/14/19 15:45 Dose: 10 ml Sodium Chloride (Saline Flush) 2.5 ml FLUSH ASDIRECTED PRN PRN Reason: Keep Vein Open Last Admin: 01/14/19 15:46 Dose: 2.5 ml Discontinued Medications Aspirin (Aspirin) 324 mg PO ONETIME ONE Stop: 01/14/19 15:07 Last Admin: 01/14/19 15:45 Dose: 324 mg Sodium Chloride (Normal Saline) 1,000 mls @ 125 mls/hr IV ASDIRECTED [facility] Last Admin: 01/14/19 15:45 Dose: 125 mls/hr Isosorbide Mononitrate (Imdur) 30 mg PO DAILY [facility] Levetiracetam (Keppra) 750 mg PO BEDTIME [facility] Last Admin: 01/14/19 21:23 Dose: Not Given - Exam Lungs: Reports: Clear to Auscultation, Normal Respiratory Effort Cardiovascular: Reports: Regular Rate, Regular Rhythm GI/Abdominal Exam: Normal Bowel Sounds, Soft, Non-Tender Psy/Mental Status: Reports: Alert, Normal Affect, Normal Mood
== END 2019-01-15 12:10 | disposition home or self-care (01) ==
LOC: MW.ED 14:45 → MW.MS 16:32
PROVIDERS: ADMIT Internal Medicine; ATTEND Internal Medicine
DX: R07.89 Other chest pain (principal); I25.10 Atherosclerotic heart disease of native coronary artery without angina pectoris; I11.0 Hypertensive heart disease with heart failure; I50.30 Unspecified diastolic (congestive) heart failure; R42 Dizziness and giddiness; R56.9 Unspecified convulsions; E78.00 Pure hypercholesterolemia, unspecified; K21.9 Gastro-esophageal reflux disease without esophagitis; M47.9 Spondylosis, unspecified; F32.9 Major depressive disorder, single episode, unspecified; F41.9 Anxiety disorder, unspecified; E11.9 Type 2 diabetes mellitus without complications; Z95.5 Presence of coronary angioplasty implant and graft; Z79.899 Other long term (current) drug therapy; Z79.02 Long term (current) use of antithrombotics/antiplatelets; Z79.82 Long term (current) use of aspirin; Z79.1 Long term (current) use of non-steroidal anti-inflammatories (NSAID)
CPT/HCPCS: 36415; 70450; 71045; 80053; 81003; 84484; 85025; 85610; 85730; 93005; 96360; 99285; A9270; J1644; J7040; 96361; 96372; 99283; G0378

== ENCOUNTER 2019-04-27 21:56 | Emergency (ER) | payer MEDICARE, MEDICAID ==
[2019-04-27 22:49] LABS: BLOOD UREA NITROGEN,BUN 22 mg/dL (7.0-18.0); CARBON DIOXIDE,CO2 28.2 mmol/L (21.0-32.0); CHLORIDE,CL 105 mmol/L (98-107); GLUCOSE RANDOM 106 mg/dL (74-106); POTASSIUM,K 4.3 mmol/L (3.5-5.1); SODIUM,NA 142 mmol/L (136-148)
[2019-04-27] MEDS ORDERED: Ketorolac 30 MG/ML SDV IVPUSH ONE (22:54)
--- NOTE | 2019-04-27 22:55 | CR ---
HISTORY: Chest pain COMPARISON: 01/14/2019 FINDINGS: A portable erect AP view of the chest was obtained at 2217 hours. The lungs remain clear. No focal or diffuse infiltrates are present. The heart remains normal in size. The mediastinum is normal in appearance. The osseous structures are normal in appearance for the patient`s age. IMPRESSION: Normal portable chest single view. Dictated by Cory Felix MD @ Apr 27 2019 10:53PM Signed by Dr. Cory Felix @ Apr 27 2019 10:54PM
--- NOTE | 2019-04-27 22:55 | EDM.PDOC ---
ED HPI GENERAL MEDICAL PROBLEM - General Chief Complaint: Chest Pain Stated Complaint: CHEST PAIN Time Seen by Provider: 04/27/19 22:49 Source of Information: Reports: Patient History Limitations: Reports: No Limitations - History of Present Illness INITIAL COMMENTS - FREE TEXT/NARRATIVE: This is a 73-year-old male presents to the emergency room chief complaint of 3 days of chest pain. Patient states the pain comes and goes and is exacerbated by movement. Onset: Today Duration: Day(s): Location: Reports: Chest Quality: Reports: Sharp Improves with: Reports: None Worsens with: Reports: None Associated Symptoms: Reports: No Other Symptoms, Chest Pain chest area Pain Score (Numeric/FACES): 7 - Related Data Allergies Allergy/AdvReac Type Severity Reaction Status Date / Time No Known Allergies Allergy Verified 04/27/19 22:00 Home Meds: Home Meds Isosorbide Mononitrate [Imdur] 10 mg PO DAILY 09/22/16 [History] Pantoprazole [ProTONIX] 40 mg PO BEDTIME 09/22/16 [History] Pravastatin [Pravachol] 40 mg PO BEDTIME 09/22/16 [History] carvediloL [Carvedilol] 3.125 mg PO BID 09/22/16 [History] Clopidogrel [Plavix] 75 mg PO DAILY 04/19/17 [History] PARoxetine [Paxil] 10 mg PO BEDTIME 04/19/17 [History] Aspirin [Halfprin] 81 mg PO DAILY #0 tab.ec 04/20/17 [Rx] Meloxicam [Mobic] 15 mg PO WITHBREAKFAST 03/07/18 [History] Nitroglycerin [Nitrostat] 0.4 mg SL Q5M PRN MDD 3 03/07/18 [History] Ranolazine [Ranexa] 500 mg PO BID 01/14/19 [History] levETIRAcetam [Levetiracetam] 500 mg PO BEDTIME 01/14/19 [History] Past Medical History - Past Health History Medical/Surgical History: Denies Medical/Surgical History HEENT History: Reports: Other (See Below) Other HEENT History: uses reading glasses Cardiovascular History: Reports: CAD, High Cholesterol, Hypertension, DE, Stents , Other (See Below) Other Cardiovascular History: DE in 2009 Respiratory History: Reports: None Gastrointestinal History: Reports: None Genitourinary History: Reports: None Musculoskeletal History: Reports: None Other Musculoskeletal History: has arthritis in back Neurological History: Reports: Vertigo, Other (See Below) Other Neuro History: hx of Claustrophobia Psychiatric History: Reports: Anxiety, Depression, Other (See Below) Other Psychiatric History: Claustrophobia 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, Type II 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 Hematologic History: Reports: Anticoagulation Therapy Immunologic History: Reports: None Oncologic (Cancer) History: Reports: None Dermatologic History: Reports: None - Infectious Disease History Infectious Disease History: Reports: None - Past Surgical History Head Surgeries/Procedures: Reports: None HEENT Surgical History: Reports: Oral Surgery, Tonsillectomy, Other (See Below) GI Surgical History: Reports: Appendectomy Social & Family History - Family History Family Medical History: Noncontributory Cardiac: Reports: DE Respiratory: Reports: None Endocrine/Metabolic: Reports: Diabetes, Type I Hematologic: Reports: None Oncologic: Reports: Other (See Below) Other Oncologic Family History: Father side has cancer but patient doesn't know exactly what kind of CA - Tobacco Use Smoking Status *Q: Never Smoker - Caffeine Use Caffeine Use: Reports: Coffee Other Caffeine Use: decaf coffee Caffeine Use Comment: daily - Recreational Drug Use Recreational Drug Use: No - Living Situation & Occupation Living situation: Reports: Occupation: Retired ED ROS GENERAL - Review of Systems Review Of Systems: Comprehensive ROS is negative, except as noted in HPI. Constitutional: Reports: No Symptoms HEENT: Reports: No Symptoms Respiratory: Reports: No Symptoms Cardiovascular: Reports: Chest Pain Endocrine: Reports: No Symptoms GI/Abdominal: Reports: No Symptoms : Reports: No Symptoms Musculoskeletal: Reports: No Symptoms Skin: Reports: No Symptoms Neurological: Reports: No Symptoms Psychiatric: Reports: No Symptoms Hematologic/Lymphatic: Reports: No Symptoms Immunologic: Reports: No Symptoms ED EXAM, GENERAL - Physical Exam Exam: See Below Exam Limited By: No Limitations General Appearance: Alert, WD/WN, No Apparent Distress Eye Exam: Bilateral Eye: Normal Fundi, Normal Inspection Ear Exam: Bilateral Ear: Auricle Normal, Canal Normal, Tenderness Nose: Normal Inspection, Normal Mucosa, No Blood Throat/Mouth: Normal Inspection, Normal Lips Head: Atraumatic, Normocephalic Neck: Normal Inspection, Supple Respiratory/Chest: No Respiratory Distress, Lungs Clear Cardiovascular: Normal Peripheral Pulses, Regular Rate, Rhythm Back Exam: Normal Inspection, Full Range of Motion Extremities: Normal Inspection, Normal Range of Motion, No Pedal Edema, Normal Capillary Refill Neurological: Alert, Oriented, CN II-XII Intact, Normal Cognition, Normal Gait, Normal Reflexes, No Motor/Sensory Deficits Psychiatric: Normal Affect, Normal Mood Skin Exam: Warm, Dry, Intact, Normal Color, No Rash Course - Vital Signs Text/Narrative:: Is a 73-year-old male who presents the emergency room with chest pain for 3 weeks. Patient has chest wall tenderness acutely. Patient's pain is reproducible on palpation of the second and third intercostal space Remainder of exam is normal Last Recorded V/S: Last Vital Signs Temp 97 F 04/27/19 22:00 Pulse 64 04/27/19 23:17 Resp 18 04/27/19 23:17 BP 123/79 04/27/19 23:17 Pulse Ox 97 04/27/19 23:17 - Orders/Labs/Meds Orders: Active Orders 24 hr Category Date Time Status EKG Documentation Completion [RC] STAT Care 04/27/19 22:17 Active Saline Lock Insert [OM.PC] Stat Oth 04/27/19 22:25 Ordered Labs: Laboratory Tests 04/27/19 04/27/19 04/27/19 Range/Units 22:14 22:14 22:14 WBC 4.96 (4.0-11.0) K/uL RBC 4.43 L (4.50-5.90) M/uL Hgb 12.6 L (13.0-17.0) g/dL Hct 38.3 (38.0-50.0) % MCV 86.5 (80.0-98.0) fL MCH 28.4 (27.0-32.0) pg MCHC 32.9 (31.0-37.0) g/dL RDW Std Deviation 48.2 (28.0-62.0) fl RDW Coeff of Ethan 15 (11.0-15.0) % Plt Count 275 (150-400) K/uL MPV 10.10 (7.40-12.00) fL Neut % (Auto) 51.8 (48.0-80.0) % Lymph % (Auto) 31.3 (16.0-40.0) % [place] % (Auto) 13.3 (0.0-15.0) % Eos % (Auto) 3.4 (0.0-7.0) % Baso % (Auto) 0.2 (0.0-1.5) % Neut # (Auto) 2.6 (1.4-5.7) K/uL Lymph # (Auto) 1.6 (0.6-2.4) K/uL [place] # (Auto) 0.7 (0.0-0.8) K/uL Eos # (Auto) 0.2 (0.0-0.7) K/uL Baso # (Auto) 0.0 (0.0-0.1) K/uL Nucleated RBC % 0.0 /100WBC Nucleated RBCs # 0 K/uL INR 0.99 Sodium 142 (136-148) mmol/L Potassium 4.3 (3.5-5.1) mmol/L Chloride 105 (98-107) mmol/L Carbon Dioxide 28.2 (21.0-32.0) mmol/L BUN 22 H (7.0-18.0) mg/dL Creatinine 1.0 (0.8-1.3) mg/dL Est Cr Clr Drug Dosing 63.35 mL/min Estimated GFR (MDRD) > 60.0 ml/min Glucose 106 (74-106) mg/dL Calcium 9.1 (8.5-10.1) mg/dL Total Bilirubin 0.2 (0.2-1.0) mg/dL AST 15 (15-37) IU/L ALT 17 (14-63) IU/L Alkaline Phosphatase 86 (46-116) U/L Troponin I < 0.050 (0.000-0.056) ng/mL Total Protein 7.8 (6.4-8.2) g/dL Albumin 3.7 (3.4-5.0) g/dL Globulin 4.1 H (2.6-4.0) g/dL Albumin/Globulin Ratio 0.9 (0.9-1.6) 04/28/19 Range/Units 01:54 WBC (4.0-11.0) K/uL RBC (4.50-5.90) M/uL Hgb (13.0-17.0) g/dL Hct (38.0-50.0) % MCV (80.0-98.0) fL MCH (27.0-32.0) pg MCHC (31.0-37.0) g/dL RDW Std Deviation (28.0-62.0) fl RDW Coeff of Ethan (11.0-15.0) % Plt Count (150-400) K/uL MPV (7.40-12.00) fL Neut % (Auto) (48.0-80.0) % Lymph % (Auto) (16.0-40.0) % [place] % (Auto) (0.0-15.0) % Eos % (Auto) (0.0-7.0) % Baso % (Auto) (0.0-1.5) % Neut # (Auto) (1.4-5.7) K/uL Lymph # (Auto) (0.6-2.4) K/uL [place] # (Auto) (0.0-0.8) K/uL Eos # (Auto) (0.0-0.7) K/uL Baso # (Auto) (0.0-0.1) K/uL Nucleated RBC % /100WBC Nucleated RBCs # K/uL INR Sodium (136-148) mmol/L Potassium (3.5-5.1) mmol/L Chloride (98-107) mmol/L Carbon Dioxide (21.0-32.0) mmol/L BUN (7.0-18.0) mg/dL Creatinine (0.8-1.3) mg/dL Est Cr Clr Drug Dosing mL/min Estimated GFR (MDRD) ml/min Glucose (74-106) mg/dL Calcium (8.5-10.1) mg/dL Total Bilirubin (0.2-1.0) mg/dL AST (15-37) IU/L ALT (14-63) IU/L Alkaline Phosphatase (46-116) U/L Troponin I < 0.050 (0.000-0.056) ng/mL Total Protein (6.4-8.2) g/dL Albumin (3.4-5.0) g/dL Globulin (2.6-4.0) g/dL Albumin/Globulin Ratio (0.9-1.6) Meds: Medications Discontinued Medications Generic Name Dose Route Start Last Admin Trade Name Tenisha PRN Reason Stop Dose Admin Ketorolac Tromethamine 30 mg 04/27/19 22:54 04/27/19 23:14 Toradol IVPUSH 04/27/19 22:55 30 mg ONETIME ONE Administration Departure - Departure Time of Disposition: 02:55 Disposition: Home, Self-Care 01 Condition: Good Clinical Impression: Acute costochondritis Instructions: Costochondritis, [id number] Referrals: PCP,Unknown [Primary Care Provider] - Forms: ED Department Discharge Additional Instructions: General discharge the following information is given to patients seen in the emergency department who are being discharged to home. This information is to outline your options for follow-up care. We provide all patients seen in our emergency department with a follow-up referral. The need for follow-up, as well as the timing and circumstances, are variable depending upon the specifics of your emergency department visit. If you don't have a primary care physician on staff, we will provide you with a referral. We always advise you to contact your personal physician following an emergency department visit to inform them of the circumstance of the visit and for follow-up with them and/or the need for any referrals to a consulting specialist. The emergency department will also refer you to a specialist when appropriate. This referral assures that you have the opportunity for follow-up care with a specialist. All of these measure are taken in an effort to provide you with optimal care, which includes your follow-up. Under all circumstances we always encourage you to contact your private physician who remains a resource for coordinating your care. When calling for follow-up care, please make the office aware that this follow-up is from your recent emergency room visit. If for any reason you are refused follow-up, please contact the [facility] at and asked to speak to the emergency department charge nurse. [facility]: [phone] [place] [id number] Follow-up with primary care provider. Return to ED as discussed and as needed. Sepsis Event Note - Evaluation Sepsis Screening Result: No Definite Risk - Focused Exam Vital Signs: Vital Signs Temp Pulse Resp BP Pulse Ox 04/27/19 23:17 64 18 123/79 97 04/27/19 22:00 97 F 63 18 153/89 H 98 Date Exam was Performed: 04/28/19 Time Exam was Performed: 02:53 - My Orders Last 24 Hours: My Active Orders 04/27/19 22:17 EKG Documentation Completion [RC] STAT 04/27/19 22:25 Saline Lock Insert [OM.PC] Stat - Assessment/Plan Last 24 Hours: My Active Orders 04/27/19 22:17 EKG Documentation Completion [RC] STAT 04/27/19 22:25 Saline Lock Insert [OM.PC] Stat
[2019-04-27 23:17] VITALS: BP 123/79; PULSE 64
== END 2019-04-28 03:12 | disposition home or self-care (01) ==
LOC: MW.ED 21:56
DX: M94.0 Chondrocostal junction syndrome [Tietze] (principal); I10 Essential (primary) hypertension; I25.2 Old myocardial infarction; E11.9 Type 2 diabetes mellitus without complications; Z79.899 Other long term (current) drug therapy; Z79.82 Long term (current) use of aspirin
CPT/HCPCS: 36415; 51798; 71045; 80053; 84484; 85025; 85610; 93005; 96374; 99285; J1885; 99284

== ENCOUNTER 2019-07-17 22:32 | Emergency (ER) | payer MEDICAID, MEDICARE ==
[2019-07-17] MEDS ORDERED: Meclizine 25 MG Tab PO ONE (22:39)
--- NOTE | 2019-07-17 23:05 | EDM.PDOC ---
ED [facility] GENERAL MEDICAL PROBLEM - General Chief Complaint: General Stated Complaint: AMBULANCE ARRIVAL Time Seen by Provider: 07/17/19 22:40 Source of Information: Reports: Patient, EMS History Limitations: Reports: No Limitations - History of Present Illness INITIAL COMMENTS - FREE TEXT/NARRATIVE: Patient is a 74-year-old male with a past medical history of coronary artery disease, orthostatic hypotension, dizziness presenting with a chief complaint of dizziness. Patient states dizziness started about 1 hour prior to arrival. Patient states he was going to the restroom and started feeling lightheaded. Patient states he felt like he was going to pass out. Patient did not have any syncopal episodes. Patient states his symptoms persisted therefore he called the ambulance. On EMS arrival, the patient was awake and alert and did not demonstrate any neurologic deficits. Patient almost fainted when they are attempting to place an IV but did not pass out. Patient has no recent illnesses no sick contacts no chest pain or cough. Patient has slight right- sided headache but is not complaining of any tinnitus. Pmhx: Per HPI and chart Pshx: None Family Hx: noncontributory Smoking history? no Etoh use? none Drg use? none In addition to that documented in the HPI above, the additional ROS was obtained : Constitutional: Denies fevers or chills Eyes: Denies vision changes ENMT: Denies sore throat CV: Denies chest pain Resp: Denies SOB GI: Denies vomiting or diarrhea : Denies painful urination MSK: Denies recent trauma Skin: Denies new rashes Neuro: Denies new numbness or tingling or weakness Endocrine: Denies unexpected weight loss Heme: Denies bleeding disorders I have reviewed the triage vital signs Const: Well nourished, well developed, appears stated age Eyes: PERRL, no conjunctival injection HENT: NCAT, Neck supple without meningismus CV: RRR, Warm, well-perfused extremities RESP: CTAB, Unlabored respiratory effort GI: soft, non-tender, non-distended, no masses MSK: No gross deformities appreciated Skin: Warm, dry. No rashes Neuro: Alert, family life educator II-XII intact. Sensation and motor function of extremities intact. Mrarzl-vigp-mjjbls intact Psych: Appropriate mood and affect Assessment and plan: Patient 74-year-old male presenting with chief complaint of dizziness and lightheadedness as well as headache. Patient has history of having these episodes before and has been diagnosed with orthostatic hypotension as well as vasovagal reactions. According to , the patient has been stressed about a cardiac stress test later this week. Patient is not having any chest pain and his dizziness resolved after administration of meclizine in the emergency department. Patient had headache but did not demonstrate any acute findings on brain CT such as subarachnoid hemorrhage or intracranial hemorrhage. Patient's labs were within normal limits and patient had no electrolyte abnormalities. Patient's EKG was within normal limits and history is not suspicious for cardiac etiology of dizziness. There does not appear to be any emergent cause of this patient's headache and dizziness that this time patient feels better after administration of pain medication. Patient will be discharged home with return precautions. headache Pain Score (Numeric/FACES): 10 - Related Data Allergies Allergy/AdvReac Type Severity Reaction Status Date / Time No Known Allergies Allergy Verified 07/17/19 22:45 Home Meds: Home Meds Isosorbide Mononitrate [Imdur] 10 mg PO DAILY 09/22/16 [History] Pantoprazole [ProTONIX] 40 mg PO BEDTIME 09/22/16 [History] Pravastatin [Pravachol] 40 mg PO BEDTIME 09/22/16 [History] carvediloL [Carvedilol] 3.125 mg PO BID 09/22/16 [History] Clopidogrel [Plavix] 75 mg PO DAILY 04/19/17 [History] PARoxetine [Paxil] 10 mg PO BEDTIME 04/19/17 [History] Aspirin [Halfprin] 81 mg PO DAILY #0 tab.ec 04/20/17 [Rx] Meloxicam [Mobic] 15 mg PO WITHBREAKFAST 03/07/18 [History] Nitroglycerin [Nitrostat] 0.4 mg SL Q5M PRN MDD 3 03/07/18 [History] Ranolazine [Ranexa] 500 mg PO BID 01/14/19 [History] levETIRAcetam [Levetiracetam] 500 mg PO BEDTIME 01/14/19 [History] Ibuprofen [Motrin] 600 mg PO BIDM PRN #20 tab 04/28/19 [Rx] Sennosides [Senokot] 8.6 mg PO BID 07/17/19 [History] Past Medical History - Past Health History Medical/Surgical History: Denies Medical/Surgical History HEENT History: Reports: Other (See Below) Other HEENT History: uses reading glasses Cardiovascular History: Reports: CAD, High Cholesterol, Hypertension, NV, Stents , Other (See Below) Other Cardiovascular History: NV in 2009 Respiratory History: Reports: None Gastrointestinal History: Reports: None Genitourinary History: Reports: None Musculoskeletal History: Reports: None Other Musculoskeletal History: has arthritis in back Neurological History: Reports: Vertigo, Other (See Below) Other Neuro History: hx of Claustrophobia Psychiatric History: Reports: Anxiety, Depression, Other (See Below) Other Psychiatric History: Claustrophobia 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, Type II Insulin Pump Model and Lokie Engineer: None Hematologic History: Reports: Anticoagulation Therapy Immunologic History: Reports: None Oncologic (Cancer) History: Reports: None Dermatologic History: Reports: None - Infectious Disease History Infectious Disease History: Reports: None - Past Surgical History Head Surgeries/Procedures: Reports: None HEENT Surgical History: Reports: Oral Surgery, Tonsillectomy, Other (See Below) GI Surgical History: Reports: Appendectomy Social & Family History - Family History Family Medical History: Noncontributory Cardiac: Reports: NV Respiratory: Reports: None Endocrine/Metabolic: Reports: Diabetes, Type I Hematologic: Reports: None Oncologic: Reports: Other (See Below) Other Oncologic Family History: Father side has cancer but patient doesn't know exactly what kind of CA - Tobacco Use Smoking Status *Q: Never Smoker - Caffeine Use Caffeine Use: Reports: Soda Other Caffeine Use: decaf coffee Caffeine Use Comment: daily - Recreational Drug Use Recreational Drug Use: No - Living Situation & Occupation Living situation: Reports: Occupation: Retired ED ROS GENERAL - Review of Systems Review Of Systems: See Below ED EXAM, GENERAL - Physical Exam Exam: See Below Course - Vital Signs Last Recorded V/S: Last Vital Signs Temp 36.2 C 07/17/19 22:35 Pulse 70 07/18/19 00:10 Resp 16 07/18/19 00:10 BP 125/82 07/18/19 00:10 Pulse Ox 95 07/18/19 00:10 - Orders/Labs/Meds Orders: Active Orders 24 hr Category Date Time Status Blood Glucose Check, Bedside [RC] ONETIME Care 07/17/19 22:40 Active EKG Documentation Completion [RC] STAT Care 07/17/19 22:38 Active Sodium Chloride 0.9% [Normal Saline] 500 ml Med 07/17/19 23:30 Active IV .BOLUS Medication Orders Sodium Chloride (Normal Saline) 500 mls @ 1,000 mls/hr IV .BOLUS ERICK Last Admin: 07/17/19 23:28 Dose: 1,000 mls/hr Labs: Laboratory Tests 07/17/19 07/17/19 07/17/19 Range/Units 22:41 22:41 22:42 WBC 4.77 (4.0-11.0) K/uL RBC 4.72 (4.50-5.90) M/uL Hgb 13.1 (13.0-17.0) g/dL Hct 40.6 (38.0-50.0) % MCV 86.0 (80.0-98.0) fL MCH 27.8 (27.0-32.0) pg MCHC 32.3 (31.0-37.0) g/dL RDW Std Deviation 49.8 (28.0-62.0) fl RDW Coeff of Ethan 16 H (11.0-15.0) % Plt Count 269 (150-400) K/uL MPV 9.50 (7.40-12.00) fL Neut % (Auto) 43.4 L (48.0-80.0) % Lymph % (Auto) 43.4 H (16.0-40.0) % Elmore % (Auto) 10.3 (0.0-15.0) % Eos % (Auto) 2.7 (0.0-7.0) % Baso % (Auto) 0.2 (0.0-1.5) % Neut # (Auto) 2.1 (1.4-5.7) K/uL Lymph # (Auto) 2.1 (0.6-2.4) K/uL Elmore # (Auto) 0.5 (0.0-0.8) K/uL Eos # (Auto) 0.1 (0.0-0.7) K/uL Baso # (Auto) 0.0 (0.0-0.1) K/uL Nucleated RBC % 0.0 /100WBC Nucleated RBCs # 0 K/uL Sodium 141 (136-148) mmol/L Potassium 3.5 (3.5-5.1) mmol/L Chloride 103 (98-107) mmol/L Carbon Dioxide 27.6 (21.0-32.0) mmol/L BUN 16 (7.0-18.0) mg/dL Creatinine 0.9 (0.8-1.3) mg/dL Est Cr Clr Drug Dosing 69.36 mL/min Estimated GFR (MDRD) > 60.0 ml/min Glucose 115 H (74-106) mg/dL POC Glucose 113 H (60-110) mg/dL Calcium 9.1 (8.5-10.1) mg/dL Total Bilirubin 0.3 (0.2-1.0) mg/dL AST 17 (15-37) IU/L ALT 21 (14-63) IU/L Alkaline Phosphatase 89 (46-116) U/L Total Protein 8.0 (6.4-8.2) g/dL Albumin 4.2 (3.4-5.0) g/dL Globulin 3.8 (2.6-4.0) g/dL Albumin/Globulin Ratio 1.1 (0.9-1.6) Meds: Medications Generic Name Dose Route Start Last Admin Trade Name Freq PRN Reason Stop Dose Admin Sodium Chloride 500 mls @ 1,000 mls/hr 07/17/19 23:30 07/17/19 23:28 Normal Saline IV 1,000 mls/hr .BOLUS ERICK Administration Discontinued Medications Generic Name Dose Route Start Last Admin Trade Name Freq PRN Reason Stop Dose Admin Acetaminophen 650 mg 07/17/19 23:18 07/17/19 23:26 Tylenol PO 07/17/19 23:19 650 mg NOW ONE Administration Meclizine HCl 25 mg 07/17/19 22:39 07/17/19 22:49 Antivert PO 07/17/19 22:40 25 mg ONETIME ONE Administration Morphine Sulfate 4 mg 07/18/19 00:03 07/18/19 00:09 Morphine IVPUSH 07/18/19 00:04 4 mg ONETIME ONE Administration Ondansetron HCl 4 mg 07/18/19 00:04 07/18/19 00:09 Zofran IVPUSH 07/18/19 00:05 4 mg ONETIME ONE Administration Departure - Departure Time of Disposition: 00:37 Disposition: Home, Self-Care 01 Clinical Impression: Vaso-vagal reaction, Headache - Discharge Information Referrals: PCP,None [Primary Care Provider] - Forms: ED Department Discharge Additional Instructions: The following information is given to patients seen in the emergency department who are being discharged to home. This information is to outline your options for follow-up care. We provide all patients seen in our emergency department with a follow-up referral. The need for follow-up, as well as the timing and circumstances, are variable depending upon the specifics of your emergency department visit. If you don't have a primary care physician on staff, we will provide you with a referral. We always advise you to contact your personal physician following an emergency department visit to inform them of the circumstance of the visit and for follow-up with them and/or the need for any referrals to a consulting specialist. The emergency department will also refer you to a specialist when appropriate. This referral assures that you have the opportunity for follow-up care with a specialist. All of these measure are taken in an effort to provide you with optimal care, which includes your follow-up. Under all circumstances we always encourage you to contact your private physician who remains a resource for coordinating your care. When calling for follow-up care, please make the office aware that this follow-up is from your recent emergency room visit. If for any reason you are refused follow-up, please contact the [facility] Emergency Department at and asked to speak to the emergency department charge nurse. Sepsis Event Note - Evaluation Sepsis Screening Result: No Definite Risk - Focused Exam Vital Signs: Vital Signs Temp Pulse Resp BP Pulse Ox 07/18/19 00:10 70 16 125/82 95 07/17/19 23:30 72 133/81 07/17/19 23:00 69 133/89 07/17/19 22:35 36.2 C 82 18 149/92 H 98 Date Exam was Performed: 07/18/19 Time Exam was Performed: 00:35 - My Orders Last 24 Hours: My Active Orders 07/17/19 22:38 EKG Documentation Completion [RC] STAT 07/17/19 22:40 Blood Glucose Check, Bedside [RC] ONETIME 07/17/19 23:30 Sodium Chloride 0.9% [Normal Saline] 500 ml IV .BOLUS - Assessment/Plan Last 24 Hours: My Active Orders 07/17/19 22:38 EKG Documentation Completion [RC] STAT 07/17/19 22:40 Blood Glucose Check, Bedside [RC] ONETIME 07/17/19 23:30 Sodium Chloride 0.9% [Normal Saline] 500 ml IV .BOLUS
--- NOTE | 2019-07-17 23:08 | CT ---
INDICATION: Dizziness TECHNIQUE: CT Head without i.v. contrast. COMPARISON: 01/14/19 FINDINGS: CSF space: Unremarkable for age. Brain: No evidence of mass, acute infarction or hemorrhage is seen. No mass-effect or midline shift is seen. Mild diffuse cortical atrophy is noted. The brain parenchyma is otherwise normal in appearance with preservation of the mitchell-white matter junction. Calvarium: The visualized paranasal sinuses are well aerated. The mastoid air cells are clear. The visualized orbits are grossly unremarkable. The calvarium is unremarkable in appearance with no fractures identified. IMPRESSION: 1. No evidence of acute infarction, intracranial hemorrhage, or mass-effect seen. Please note that all CT scans at this facility use dose modulation, iterative reconstruction, and/or weight-based dosing when appropriate to reduce radiation dose to as low as reasonably achievable. Dictated by: Fermín Calle MD @ 07/17/2019 23:07:24 (Electronically Signed)
[2019-07-17 23:09] LABS: BLOOD UREA NITROGEN,BUN 16 mg/dL (7.0-18.0); CARBON DIOXIDE,CO2 27.6 mmol/L (21.0-32.0); CHLORIDE,CL 103 mmol/L (98-107); GLUCOSE RANDOM 115 mg/dL (74-106); POTASSIUM,K 3.5 mmol/L (3.5-5.1); SODIUM,NA 141 mmol/L (136-148)
[2019-07-17] MEDS ORDERED: Acetaminophen 325 MG Tab PO ONE (23:18)
--- NOTE | 2019-07-17 23:19 | CR ---
INDICATION: Dizziness TECHNIQUE: Chest radiograph 1 view COMPARISON: 04/27/2019 FINDINGS: Mediastinum: The mediastinum is normal in appearance. The heart silhouette is normal in size and morphology. Lung: Both lungs are unremarkable in appearance. No sign of pleural effusion seen. No pneumothorax is identified. Bone and Soft tissue: Unremarkable for age. IMPRESSION: 1. No acute cardiopulmonary disease is seen. Dictated by: Fermín Calle MD @ 07/17/2019 23:18:42 (Electronically Signed)
[2019-07-17] MEDS ORDERED: Sodium Chloride 0.9% 500 ML IV SCH (23:30)
[2019-07-18] MEDS ORDERED: Morphine 4 MG/ML Syringe IVPUSH ONE (00:03)
[2019-07-18] MEDS ORDERED: Ondansetron 4 MG/2 ML SDV IVPUSH ONE (00:04)
[2019-07-18 01:11] VITALS: BP 123/78; PULSE 72
== END 2019-07-18 01:03 | disposition home or self-care (01) ==
LOC: MW.ED 22:32
DX: R42 Dizziness and giddiness (principal); R51 Headache; I10 Essential (primary) hypertension; E11.9 Type 2 diabetes mellitus without complications; I25.10 Atherosclerotic heart disease of native coronary artery without angina pectoris; E78.00 Pure hypercholesterolemia, unspecified; F41.9 Anxiety disorder, unspecified; F32.9 Major depressive disorder, single episode, unspecified; Z79.01 Long term (current) use of anticoagulants; Z79.82 Long term (current) use of aspirin; Z79.899 Other long term (current) drug therapy
CPT/HCPCS: 36415; 70450; 70450-26; 71045; 71045-26; 80053; 82962; 85025; 93005; 96361; 96374; 96375; 99285-25; A9270-GY; J2270; J2405; J7040

== ENCOUNTER 2019-10-01 20:43 | Observation (INO) | payer MEDICARE, OTHER ==
[2019-10-01] MEDS ORDERED: Sodium Chloride 0.9% 1,000 ML IV ONE ×2 (20:47→22:42)
[2019-10-01] MEDS ORDERED: Sodium Chloride 0.9% 10 ML Syringe FLUSH PRN (20:47)
[2019-10-01] MEDS ORDERED: Sodium Chloride 0.9% 2.5 ML Syringe FLUSH PRN (20:47)
[2019-10-01] MEDS ORDERED: Morphine 4 MG/ML Syringe IVPUSH ONE (21:31)
[2019-10-01 21:32] LABS: BLOOD UREA NITROGEN,BUN 14 mg/dL (7.0-18.0); CARBON DIOXIDE,CO2 24.8 mmol/L (21.0-32.0); CHLORIDE,CL 102 mmol/L (98-107); GLUCOSE RANDOM 123 mg/dL (74-106); LIPASE 61 U/L (73-393); POTASSIUM,K 3.6 mmol/L (3.5-5.1); SODIUM,NA 142 mmol/L (136-148)
[2019-10-01] MEDS: Nitroglycerin 0.4 MG Tab.SL SL PRN ×3 (21:48→22:00)
[2019-10-01] MEDS ORDERED: Ondansetron 4 MG/2 ML SDV ONE (22:13)
[2019-10-01] MEDS ORDERED: Ondansetron 4 MG/2 ML SDV IVPUSH ONE (22:41)
--- NOTE | 2019-10-01 22:58 | EDM.PDOC ---
ED HPI GENERAL MEDICAL PROBLEM - General Chief Complaint: Chest Pain Stated Complaint: CHEST PAIN Time Seen by Provider: 10/01/19 20:46 - History of Present Illness INITIAL COMMENTS - FREE TEXT/NARRATIVE: HISTORY AND PHYSICAL: History of present illness: This is a 74-year-old gentleman with a history significant for coronary artery disease, status post multiple stents in the past, presents the ER today secondary to chest pain that started earlier today. Patient reports that he had the pain for approximately 1 week and has been intermittent. Patient reports that the pain went away approximately 2 to 3 days ago and then returned again this afternoon and was much more severe. Patient reports that the pain is similar to the pain he has had when he is been told that he is had a heart attack in the past. Patient reports he has had associated shortness of breath with it, nausea, pain radiating to his back, and diaphoresis. Patient is also complaining of some abdominal discomfort in the midepigastric region. Patient denies any recent fevers, shakes, chills. Patient denies any vomiting or diarrhea. Patient denies any dysuria frequency urgency. Patient denies any weakness to his upper or lower extremities. Patient reports that he lives currently with his and his is feeling well without any symptoms. Patient also has relayed his concern regarding having coronavirus because of his symptoms. Patient was brought in today by EMS, he was given aspirin and 1 sublingual nitro with improvement in his discomfort. Patient has a history significant for coronary artery disease, high cholesterol, seizure disorder. Patient has had a history significant for appendectomy. Patient has no known drug allergies. Patient denies any alcohol or drugs. Review of systems: As per history of present illness and below otherwise all systems reviewed and negative. Past medical history: As per history of present illness and as reviewed below otherwise noncontributory. Surgical history: As per history of present illness and as reviewed below otherwise noncontributory. Social history: No reported history of drug or alcohol abuse. Family history: As per history of present illness and as reviewed below otherwise noncontributory. Physical exam: Constitutional: Patient is oriented to person, place, and time. Appears well- developed and well-nourished. No distress. HEENT: Moist mucous membranes Head: Normocephalic and atraumatic Eyes: Right eye exhibits no discharge. Left eye exhibits no discharge. No scleral icterus Neck: Normal range of motion. No tracheal deviation present. Cardiovascular: Normal rate and regular rhythm. Pulmonary: Effort normal, no respiratory distress. Abd: Soft, nondistended, no rebound/guarding, no psoas or obturator signs, no tenderness at Mcberney's point, no Fuentes's sign. Pt does not present with an exam that would be consistent with an acute surgical abdomen at this time. Mild tenderness to palpation midepigastric region Musculoskeletal: Normal range of motion Neurologic: Alert and oriented to person, place and time. Skin: [place], warm and dry. Psychiatric: Normal mood and affect. Behavior is normal. Judgment and thought content normal. Nursing note and vital signs have been reviewed Diagnostics: Chest x-ray reveals normal heart size no infiltrates or effusions. EKG reveals sinus tachycardia at rate of 100 with multiple PVCs. Nonspecific ST-T wave abnormalities without evidence of ST elevation CO. Incomplete right bundle branch block. Therapeutics: Patient given morphine 4 mg IV at approximately 9:45 PM secondary to recurrence of chest pain. 10:56 PM: Patient feels much improved and is currently pain-free. Impression: This is a 74-year-old gentleman with history significant for coronary disease status post stents who presents ER today complaining of chest pain that he reports is similar to what he had with his prior CO. Pain appears to have been intermittent for the last week. Patient reports that the pain is nonexertional but does have a lot of other symptoms that are highly suspicious for cardiac etiology. Plan: Given the patient's age and his risk factors, patient will be admitted to the hospital for further evaluation of his chest pain. Definitive disposition and diagnosis as appropriate pending reevaluation and review of above. 10:15 PM: Patient had what appears to be a syncopal episode that lasted approximately 10 seconds when he was sitting up. Upon my evaluation of the patient, patient was diaphoretic and hypotensive with a blood pressure of 75/40. Patient was given 1 L of NSS with significant improvement in his symptoms. Patient currently is feeling much improved in the ED. Critical Care: The high probability of sudden, clinically significant deterioration in the patient's condition required the highest level of my preparedness to intervene urgently. The services I provided to this patient were to treat and/or prevent clinically significant deterioration. Services included the following: chart data review, reviewing nursing notes and/or old charts, documentation time, service consultant collaboration regarding findings and treatment options, medication orders and management, direct patient care, vital sign assessments and ordering, interpreting and reviewing diagnostic studies/lab tests. Aggregate critical care time includes only time during which I was engaged inwork directly related to the patient's care, as described above, whether at the bedside or elsewhere in the Emergency Department. It did not include time spent performing other reported procedures or the services of residents, students, nurses or physician assistants. Critical Care Time: 35 minutes chest Pain Score (Numeric/FACES): 6 - Related Data Allergies Allergy/AdvReac Type Severity Reaction Status Date / Time No Known Allergies Allergy Verified 07/17/19 22:45 Home Meds: Home Meds Isosorbide Mononitrate [Imdur] 10 mg PO BID 09/22/16 [History] Pantoprazole [ProTONIX] 40 mg PO BEDTIME 09/22/16 [History] Pravastatin [Pravachol] 40 mg PO BEDTIME 09/22/16 [History] carvediloL [Carvedilol] 3.125 mg PO BID 09/22/16 [History] Clopidogrel [Plavix] 75 mg PO DAILY 04/19/17 [History] PARoxetine [Paxil] 20 mg PO BEDTIME 04/19/17 [History] Aspirin [Halfprin] 81 mg PO DAILY #0 tab.ec 04/20/17 [Rx] Meloxicam [Mobic] 15 mg PO WITHBREAKFAST 03/07/18 [History] Nitroglycerin [Nitrostat] 0.4 mg SL Q5M PRN MDD 3 03/07/18 [History] Ranolazine [Ranexa] 500 mg PO BID 01/14/19 [History] levETIRAcetam [Levetiracetam] 500 mg PO BID 01/14/19 [History] Ibuprofen [Motrin] 600 mg PO BIDM PRN #20 tab 04/28/19 [Rx] Sennosides [Senokot] 8.6 mg PO BID 07/17/19 [History] Past Medical History - Past Health History Medical/Surgical History: Denies Medical/Surgical History HEENT History: Reports: Other (See Below) Other HEENT History: uses reading glasses Cardiovascular History: Reports: CAD, High Cholesterol, Hypertension, CO, Stents, Other (See Below) Other Cardiovascular History: CO in 2010 Respiratory History: Reports: None Gastrointestinal History: Reports: None Genitourinary History: Reports: None Musculoskeletal History: Reports: None Other Musculoskeletal History: has arthritis in back Neurological History: Reports: Vertigo, Other (See Below) Other Neuro History: hx of Claustrophobia Psychiatric History: Reports: Anxiety, Depression, Other (See Below) Other Psychiatric History: Claustrophobia 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, Type II Insulin Pump Model and Chief Medical Director: None Hematologic History: Reports: Anticoagulation Therapy Immunologic History: Reports: None Oncologic (Cancer) History: Reports: None Dermatologic History: Reports: None - Infectious Disease History Infectious Disease History: Reports: None - Past Surgical History Head Surgeries/Procedures: Reports: None HEENT Surgical History: Reports: Oral Surgery, Tonsillectomy, Other (See Below) Other Cardiovascular Surgeries/Procedures: Stents x3 GI Surgical History: Reports: Appendectomy Social & Family History - Family History Family Medical History: Noncontributory Cardiac: Reports: CO Respiratory: Reports: None Endocrine/Metabolic: Reports: Diabetes, Type I Hematologic: Reports: None Oncologic: Reports: Other (See Below) Other Oncologic Family History: Father side has cancer but patient doesn't know exactly what kind of CA - Tobacco Use Smoking Status *Q: Never Smoker - Caffeine Use Caffeine Use: Reports: None Other Caffeine Use: decaf coffee Caffeine Use Comment: daily - Recreational Drug Use Recreational Drug Use: No - Living Situation & Occupation Living situation: Reports: Occupation: Retired ED ROS GENERAL - Review of Systems Review Of Systems: Comprehensive ROS is negative, except as noted in HPI. ED EXAM, GENERAL - Physical Exam Exam: See Below (See dictation) EKG INTERPRETATION EKG Interpretation Comments: EKG: Normal sinus rhythm heart rate of 100 with multiple PVCs Nonspecific ST-T wave abnormalities Normal QRS axis Incomplete left bundle branch block No evidence of ST elevation CO As interpreted by ER physician: Kristian Chest Xray: Normal cardiac silhouette No infiltrates or effusions identified. No PTX No evidence of acute bony fracture. As interpreted by ER MD: Kristian Course - Vital Signs Last Recorded V/S: Last Vital Signs Temp 97.6 F 10/01/19 20:59 Pulse 67 10/01/19 21:40 Resp 18 10/01/19 21:40 BP 120/82 10/01/19 22:00 Pulse Ox 96 10/01/19 21:40 - Orders/Labs/Meds Orders: Active Orders 24 hr Category Date Time Status EKG Documentation Completion [RC] AM Care 10/01/19 20:47 Active Chest 1V Frontal [CR] Stat Exams 10/01/19 22:20 Taken UA W/GARCIA RFLX IF INDICATED [URIN] Stat Lab 10/01/19 20:48 Ordered Sodium Chloride 0.9% [Normal Saline] 1,000 ml Med 10/01/19 22:42 Active IV .BOLUS Sodium Chloride 0.9% [Saline Flush] Med 10/01/19 20:47 Active 10 ml FLUSH ASDIRECTED PRN Sodium Chloride 0.9% [Saline Flush] Med 10/01/19 20:47 Active 2.5 ml FLUSH ASDIRECTED PRN Saline Lock Insert [OM.PC] Stat Oth 10/01/19 20:47 Ordered Medication Orders Sodium Chloride (Normal Saline) 1,000 mls @ 999 mls/hr IV .BOLUS ONE Stop: 10/01/19 23:42 Last Admin: 10/01/19 22:42 Dose: 999 mls/hr Sodium Chloride (Saline Flush) 10 ml FLUSH ASDIRECTED PRN PRN Reason: Keep Vein Open Sodium Chloride (Saline Flush) 2.5 ml FLUSH ASDIRECTED PRN PRN Reason: Keep Vein Open Labs: Laboratory Tests 10/01/19 10/01/19 10/01/19 Range/Units 20:48 20:48 20:48 WBC 6.35 (4.0-11.0) K/uL RBC 5.26 (4.50-5.90) M/uL Hgb 14.8 (13.0-17.0) g/dL Hct 45.8 (38.0-50.0) % MCV 87.1 (80.0-98.0) fL MCH 28.1 (27.0-32.0) pg MCHC 32.3 (31.0-37.0) g/dL RDW Std Deviation 48.1 (28.0-62.0) fl RDW Coeff of Ethan 15 (11.0-15.0) % Plt Count 256 (150-400) K/uL MPV 10.00 (7.40-12.00) fL Neut % (Auto) 53.9 (48.0-80.0) % Lymph % (Auto) 36.5 (16.0-40.0) % [place] % (Auto) 8.5 (0.0-15.0) % Eos % (Auto) 0.9 (0.0-7.0) % Baso % (Auto) 0.2 (0.0-1.5) % Neut # (Auto) 3.4 (1.4-5.7) K/uL Lymph # (Auto) 2.3 (0.6-2.4) K/uL [place] # (Auto) 0.5 (0.0-0.8) K/uL Eos # (Auto) 0.1 (0.0-0.7) K/uL Baso # (Auto) 0.0 (0.0-0.1) K/uL Nucleated RBC % 0.0 /100WBC Nucleated RBCs # 0 K/uL INR Sodium 142 (136-148) mmol/L Potassium 3.6 (3.5-5.1) mmol/L Chloride 102 (98-107) mmol/L Carbon Dioxide 24.8 (21.0-32.0) mmol/L BUN 14 (7.0-18.0) mg/dL Creatinine 1.2 (0.8-1.3) mg/dL Est Cr Clr Drug Dosing TNP Estimated GFR (MDRD) 59.5 ml/min Glucose 123 H (74-106) mg/dL Calcium 9.8 (8.5-10.1) mg/dL Magnesium 1.8 (1.8-2.4) mg/dL Total Bilirubin 0.7 (0.2-1.0) mg/dL AST 23 (15-37) IU/L ALT 17 (14-63) IU/L Alkaline Phosphatase 93 (46-116) U/L Troponin I < 0.050 (0.000-0.056) ng/mL B-Natriuretic Peptide 99 (<100) PG/ML Total Protein 8.2 (6.4-8.2) g/dL Albumin 4.5 (3.4-5.0) g/dL Globulin 3.7 (2.6-4.0) g/dL Albumin/Globulin Ratio 1.2 (0.9-1.6) Lipase 61 L (73-393) U/L SARS-CoV-2 RNA (RT-PCR) (NEGATIVE) 10/01/19 10/01/19 Range/Units 20:48 21:05 WBC (4.0-11.0) K/uL RBC (4.50-5.90) M/uL Hgb (13.0-17.0) g/dL Hct (38.0-50.0) % MCV (80.0-98.0) fL MCH (27.0-32.0) pg MCHC (31.0-37.0) g/dL RDW Std Deviation (28.0-62.0) fl RDW Coeff of Ethan (11.0-15.0) % Plt Count (150-400) K/uL MPV (7.40-12.00) fL Neut % (Auto) (48.0-80.0) % Lymph % (Auto) (16.0-40.0) % [place] % (Auto) (0.0-15.0) % Eos % (Auto) (0.0-7.0) % Baso % (Auto) (0.0-1.5) % Neut # (Auto) (1.4-5.7) K/uL Lymph # (Auto) (0.6-2.4) K/uL [place] # (Auto) (0.0-0.8) K/uL Eos # (Auto) (0.0-0.7) K/uL Baso # (Auto) (0.0-0.1) K/uL Nucleated RBC % /100WBC Nucleated RBCs # K/uL INR 1.00 Sodium (136-148) mmol/L Potassium (3.5-5.1) mmol/L Chloride (98-107) mmol/L Carbon Dioxide (21.0-32.0) mmol/L BUN (7.0-18.0) mg/dL Creatinine (0.8-1.3) mg/dL Est Cr Clr Drug Dosing Estimated GFR (MDRD) ml/min Glucose (74-106) mg/dL Calcium (8.5-10.1) mg/dL Magnesium (1.8-2.4) mg/dL Total Bilirubin (0.2-1.0) mg/dL AST (15-37) IU/L ALT (14-63) IU/L Alkaline Phosphatase (46-116) U/L Troponin I (0.000-0.056) ng/mL B-Natriuretic Peptide (<100) PG/ML Total Protein (6.4-8.2) g/dL Albumin (3.4-5.0) g/dL Globulin (2.6-4.0) g/dL Albumin/Globulin Ratio (0.9-1.6) Lipase (73-393) U/L SARS-CoV-2 RNA (RT-PCR) NEGATIVE (NEGATIVE) Meds: Medications Generic Name Dose Route Start Last Admin Trade Name Freq PRN Reason Stop Dose Admin Sodium Chloride 1,000 mls @ 999 mls/hr 10/01/19 22:42 10/01/19 22:42 Normal Saline IV 10/01/19 23:42 999 mls/hr .BOLUS ONE Administration Sodium Chloride 10 ml 10/01/19 20:47 Saline Flush FLUSH ASDIRECTED PRN Keep Vein Open Sodium Chloride 2.5 ml 10/01/19 20:47 Saline Flush FLUSH ASDIRECTED PRN Keep Vein Open Discontinued Medications Generic Name Dose Route Start Last Admin Trade Name Freq PRN Reason Stop Dose Admin Sodium Chloride 1,000 mls @ 999 mls/hr 10/01/19 20:47 10/01/19 21:25 Normal Saline IV 10/01/19 21:47 999 mls/hr .Bolus ONE Administration Morphine Sulfate 4 mg 10/01/19 21:31 10/01/19 21:47 Morphine IVPUSH 10/01/19 21:32 4 mg ONETIME ONE Administration Nitroglycerin 0.4 mg 10/01/19 21:31 10/01/19 22:00 Nitrostat SL 0.4 mg Q5M PRN Administration Chest Pain Ondansetron HCl Confirm 10/01/19 22:13 10/01/19 22:42 Zofran Administered 10/01/19 22:14 Not Given Dose 4 mg .ROUTE .STK-MED ONE Ondansetron HCl 4 mg 10/01/19 22:41 10/01/19 22:42 Zofran IVPUSH 10/01/19 22:42 4 mg ONETIME ONE Administration Departure - Departure Time of Disposition: 22:59 Disposition: Admitted As Inpatient 68 Condition: Good Clinical Impression: Acute coronary syndrome Syncopal episodes Qualifiers: Syncope type: unspecified Qualified Code(s): R55 - Syncope and collapse - Discharge Information *PRESCRIPTION DRUG MONITORING PROGRAM REVIEWED*: Not Applicable *COPY OF PRESCRIPTION DRUG MONITORING REPORT IN PATIENT SWEETIE: Not Applicable Referrals: Vernell Donovan MD [Primary Care Provider] - Sepsis Event Note (ED) - Evaluation Sepsis Screening Result: No Definite Risk - Focused Exam Vital Signs: Vital Signs Temp Pulse Resp BP BP Pulse Ox 10/01/19 22:00 120/82 10/01/19 21:53 156/95 H 10/01/19 21:48 152/87 H 10/01/19 21:40 67 18 152/87 H 96 10/01/19 21:10 80 16 140/95 H 95 10/01/19 20:59 97.6 F 97 16 147/103 H 99 - My Orders Last 24 Hours: My Active Orders 10/01/19 20:47 EKG Documentation Completion [RC] AM Sodium Chloride 0.9% [Saline Flush] 10 ml FLUSH ASDIRECTED PRN Sodium Chloride 0.9% [Saline Flush] 2.5 ml FLUSH ASDIRECTED PRN Saline Lock Insert [OM.PC] Stat 10/01/19 20:48 UA W/GARCIA RFLX IF INDICATED [URIN] Stat 10/01/19 22:20 Chest 1V Frontal [CR] Stat 10/01/19 22:42 Sodium Chloride 0.9% [Normal Saline] 1,000 ml IV .BOLUS - Assessment/Plan Last 24 Hours: My Active Orders 10/01/19 20:47 EKG Documentation Completion [RC] AM Sodium Chloride 0.9% [Saline Flush] 10 ml FLUSH ASDIRECTED PRN Sodium Chloride 0.9% [Saline Flush] 2.5 ml FLUSH ASDIRECTED PRN Saline Lock Insert [OM.PC] Stat 10/01/19 20:48 UA W/GARCIA RFLX IF INDICATED [URIN] Stat 10/01/19 22:20 Chest 1V Frontal [CR] Stat 10/01/19 22:42 Sodium Chloride 0.9% [Normal Saline] 1,000 ml IV .BOLUS
--- NOTE | 2019-10-01 23:09 | CR ---
Chest: Portable view of the chest was obtained. Comparison: Prior chest x-ray of 07/17/19. Heart size appears within normal limits for portable technique. Tortuous thoracic aorta is seen. Lungs are clear with no acute parenchymal change. Bony structures are grossly intact. Impression: 1. Nothing acute is seen on supine portable chest x-ray. Diagnostic code #1 Study was dictated in MDT
[2019-10-01] MEDS ORDERED: Magnesium Oxide 400 MG Tab PO ONE (23:56)
[2019-10-02] MEDS ORDERED: Albuterol/Ipratropium 3.0-0.5 MG/3 ML Neb Soln NEB PRN (00:02)
[2019-10-02] MEDS ORDERED: Morphine 2 MG/ML Syringe IVPUSH PRN (00:08)
[2019-10-02] MEDS: Lactated Ringers 1,000 ML IV SCH ×3 (02:30→21:50)
[2019-10-02] MEDS: Acetaminophen 325 MG Tab PO PRN ×2 (02:34→08:44)
[2019-10-02 02:57] LABS: BLOOD UREA NITROGEN,BUN 16 mg/dL (7.0-18.0); CHLORIDE,CL 107 mmol/L (98-107); GLUCOSE RANDOM 122 mg/dL (74-106); POTASSIUM,K 3.9 mmol/L (3.5-5.1); SODIUM,NA 145 mmol/L (136-148)
--- NOTE | 2019-10-02 08:08 | PCM.HP.2 ---
H&P History of Present Illness - General Date of Service: 10/02/19 Admit Problem/Dx: Admission Diagnosis/Problem Admission Diagnosis/Problem Acute coronary syndrome Source of Information: Patient History Limitations: Reports: No Limitations - History of Present Illness Initial Comments - Free Text/Narative: This 74 year old male with pmh of CAD with PCI 12/2016, HFpEF, chronic dizziness, seizure, CVA and HLD presented to the ED with complaints of chest pain and syncope at home. He reports the chest pain is off and on over the last few weeks but returned recently worse. He denies palpitations. He reports dyspnea, diaphoresis, and dizziness. he reports at home on Tuesday he took all his pills and started feeling nauseated so he stopped all his medications. He hasn't eaten well the last few days as well due to intermittent nausea. he denies abdominal pain. No dysuria. No focal neurological deficits. In the ED labwork WNL. Troponin negative. EKG shows non specific ST- T abnormalities, no acute ischemic changes. CXR negative. He was treated with nitro in the ED x 3 then had significantly lower BP with syncopal episode. He was admitted for chest pain and syncope. Lexiscan 07/2019 showed fixed inferolateral severe defect, basal to mid basal to distal fixed severe inferior wall. Similar to previous stress tests, LVEF 38% Has had some compliance issues with medications in the past as well as not follow up with providers. chest Pain Score (Numeric/FACES): 6 - Related Data Allergies/Adverse Reactions: Allergies Allergy/AdvReac Type Severity Reaction Status Date / Time No Known Allergies Allergy Verified 10/02/19 05:38 Home Medications: Home Meds Isosorbide Mononitrate [Imdur] 10 mg PO BID 09/22/16 [History] Pantoprazole [ProTONIX] 40 mg PO BEDTIME 09/22/16 [History] Pravastatin [Pravachol] 40 mg PO BEDTIME 09/22/16 [History] carvediloL [Carvedilol] 3.125 mg PO BID 09/22/16 [History] Clopidogrel [Plavix] 75 mg PO DAILY 04/19/17 [History] PARoxetine [Paxil] 20 mg PO BEDTIME 04/19/17 [History] Aspirin [Halfprin] 81 mg PO DAILY #0 tab.ec 04/20/17 [Rx] Nitroglycerin [Nitrostat] 0.4 mg SL Q5M PRN MDD 3 03/07/18 [History] Ranolazine [Ranexa] 500 mg PO BID 01/14/19 [History] levETIRAcetam [Levetiracetam] 500 mg PO BID 01/14/19 [History] Past Medical History - Past Health History Medical/Surgical History: Denies Medical/Surgical History HEENT History: Reports: Other (See Below) Other HEENT History: uses reading glasses Cardiovascular History: Reports: CAD, High Cholesterol, Hypertension, CT, Stents, Other (See Below) Other Cardiovascular History: CT in 2009 Respiratory History: Reports: None Gastrointestinal History: Reports: None Genitourinary History: Reports: None Musculoskeletal History: Reports: None Other Musculoskeletal History: has arthritis in back Neurological History: Reports: Vertigo, Other (See Below) Other Neuro History: hx of Claustrophobia Psychiatric History: Reports: Anxiety, Depression, Other (See Below) Other Psychiatric History: Claustrophobia 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, Type II 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[employer] Supervisor: None Hematologic History: Reports: Anticoagulation Therapy Immunologic History: Reports: None Oncologic (Cancer) History: Reports: None Dermatologic History: Reports: None - Infectious Disease History Infectious Disease History: Reports: None - Past Surgical History Head Surgeries/Procedures: Reports: None HEENT Surgical History: Reports: Oral Surgery, Tonsillectomy, Other (See Below) Other Cardiovascular Surgeries/Procedures: Stents x3 GI Surgical History: Reports: Appendectomy Social & Family History - Family History Family Medical History: Noncontributory Cardiac: Reports: CT Respiratory: Reports: None Endocrine/Metabolic: Reports: Diabetes, Type I Hematologic: Reports: None Oncologic: Reports: Other (See Below) Other Oncologic Family History: Father side has cancer but patient doesn't know exactly what kind of CA - Tobacco Use Smoking Status *Q: Never Smoker Second Hand Smoke Exposure: No - Caffeine Use Caffeine Use: Reports: Coffee Other Caffeine Use: decaf coffee Caffeine Use Comment: daily - Recreational Drug Use Recreational Drug Use: No - Living Situation & Occupation Living situation: Reports: Occupation: Retired H&P Review of Systems - Review of Systems: Review Of Systems: See Below General: Reports: Malaise, Weakness. Denies: Fever, Chills Pulmonary: Denies: Shortness of Breath Cardiovascular: Reports: Chest Pain (reporducible to palpation of anterior chest wall), Syncope, Blood Pressure Problem Gastrointestinal: Reports: Decreased Appetite, Nausea. Denies: Abdominal Pain Genitourinary: Reports: No Symptoms. Denies: Dysuria, Frequency, Burning Musculoskeletal: Reports: No Symptoms Skin: Reports: No Symptoms Psychiatric: Reports: No Symptoms Neurological: Reports: No Symptoms Hematologic/Lymphatic: Reports: No Symptoms Immunologic: Reports: No Symptoms Exam - Exam Exam: See Below - Vital Signs Vital Signs: Last Vital Signs Temp 97.9 F 10/02/19 07:46 Pulse 70 10/02/19 07:46 Resp 16 10/02/19 07:46 BP 122/71 10/02/19 07:46 Pulse Ox 94 L 10/02/19 07:46 Weight: 71.804 kg - Exam General: Alert, Oriented, Cooperative Neck: Supple, Trachea Midline Lungs: Clear to Auscultation, Normal Respiratory Effort Cardiovascular: Regular Rate, Regular Rhythm, Other (chest wall tenderness to palpation) GI/Abdominal Exam: Normal Bowel Sounds, Soft, Non-Tender Extremities: Normal Inspection, Normal Range of Motion, Non-Tender, No Pedal Edema Neuro Extensive - Mental Status: Alert, Oriented x3, Normal Mood/Affect Neuro Extensive - Motor, Sensory, Reflexes: CN II-XII Intact, Normal Gait, Normal Reflexes Psychiatric: Alert, Normal Affect, Normal Mood - Patient Data Lab Results Last 24 hrs: Laboratory Results - last 24 hr 10/01/19 10/01/19 10/01/19 Range/Units 20:48 20:48 20:48 WBC 6.35 (4.0-11.0) K/uL RBC 5.26 (4.50-5.90) M/uL Hgb 14.8 (13.0-17.0) g/dL Hct 45.8 (38.0-50.0) % MCV 87.1 (80.0-98.0) fL MCH 28.1 (27.0-32.0) pg MCHC 32.3 (31.0-37.0) g/dL RDW Std Deviation 48.1 (28.0-62.0) fl RDW Coeff of Ethan 15 (11.0-15.0) % Plt Count 256 (150-400) K/uL MPV 10.00 (7.40-12.00) fL Neut % (Auto) 53.9 (48.0-80.0) % Lymph % (Auto) 36.5 (16.0-40.0) % Lyon % (Auto) 8.5 (0.0-15.0) % Eos % (Auto) 0.9 (0.0-7.0) % Baso % (Auto) 0.2 (0.0-1.5) % Neut # (Auto) 3.4 (1.4-5.7) K/uL Lymph # (Auto) 2.3 (0.6-2.4) K/uL Lyon # (Auto) 0.5 (0.0-0.8) K/uL Eos # (Auto) 0.1 (0.0-0.7) K/uL Baso # (Auto) 0.0 (0.0-0.1) K/uL Nucleated RBC % 0.0 /100WBC Nucleated RBCs # 0 K/uL INR Sodium 142 (136-148) mmol/L Potassium 3.6 (3.5-5.1) mmol/L Chloride 102 (98-107) mmol/L Carbon Dioxide 24.8 (21.0-32.0) mmol/L BUN 14 (7.0-18.0) mg/dL Creatinine 1.2 (0.8-1.3) mg/dL Est Cr Clr Drug Dosing TNP Estimated GFR (MDRD) 59.5 ml/min Glucose 123 H (74-106) mg/dL Calcium 9.8 (8.5-10.1) mg/dL Phosphorus (2.6-4.7) mg/dL Magnesium 1.8 (1.8-2.4) mg/dL Total Bilirubin 0.7 (0.2-1.0) mg/dL AST 23 (15-37) IU/L ALT 17 (14-63) IU/L Alkaline Phosphatase 93 (46-116) U/L Troponin I < 0.050 (0.000-0.056) ng/mL B-Natriuretic Peptide 99 (<100) PG/ML Total Protein 8.2 (6.4-8.2) g/dL Albumin 4.5 (3.4-5.0) g/dL Globulin 3.7 (2.6-4.0) g/dL Albumin/Globulin Ratio 1.2 (0.9-1.6) Lipase 61 L (73-393) U/L SARS-CoV-2 RNA (RT-PCR) (NEGATIVE) 10/01/19 10/01/19 10/01/19 Range/Units 20:48 21:05 23:21 WBC (4.0-11.0) K/uL RBC (4.50-5.90) M/uL Hgb (13.0-17.0) g/dL Hct (38.0-50.0) % MCV (80.0-98.0) fL MCH (27.0-32.0) pg MCHC (31.0-37.0) g/dL RDW Std Deviation (28.0-62.0) fl RDW Coeff of Ethan (11.0-15.0) % Plt Count (150-400) K/uL MPV (7.40-12.00) fL Neut % (Auto) (48.0-80.0) % Lymph % (Auto) (16.0-40.0) % Lyon % (Auto) (0.0-15.0) % Eos % (Auto) (0.0-7.0) % Baso % (Auto) (0.0-1.5) % Neut # (Auto) (1.4-5.7) K/uL Lymph # (Auto) (0.6-2.4) K/uL Lyon # (Auto) (0.0-0.8) K/uL Eos # (Auto) (0.0-0.7) K/uL Baso # (Auto) (0.0-0.1) K/uL Nucleated RBC % /100WBC Nucleated RBCs # K/uL INR 1.00 Sodium (136-148) mmol/L Potassium (3.5-5.1) mmol/L Chloride (98-107) mmol/L Carbon Dioxide (21.0-32.0) mmol/L BUN (7.0-18.0) mg/dL Creatinine (0.8-1.3) mg/dL Est Cr Clr Drug Dosing Estimated GFR (MDRD) ml/min Glucose (74-106) mg/dL Calcium (8.5-10.1) mg/dL Phosphorus (2.6-4.7) mg/dL Magnesium (1.8-2.4) mg/dL Total Bilirubin (0.2-1.0) mg/dL AST (15-37) IU/L ALT (14-63) IU/L Alkaline Phosphatase (46-116) U/L Troponin I < 0.050 (0.000-0.056) ng/mL B-Natriuretic Peptide (<100) PG/ML Total Protein (6.4-8.2) g/dL Albumin (3.4-5.0) g/dL Globulin (2.6-4.0) g/dL Albumin/Globulin Ratio (0.9-1.6) Lipase (73-393) U/L SARS-CoV-2 RNA (RT-PCR) NEGATIVE (NEGATIVE) 10/02/19 10/02/19 10/02/19 Range/Units 02:24 02:24 02:24 WBC 5.25 (4.0-11.0) K/uL RBC 4.36 L (4.50-5.90) M/uL Hgb 12.1 L (13.0-17.0) g/dL Hct 38.3 (38.0-50.0) % MCV 87.8 (80.0-98.0) fL MCH 27.8 (27.0-32.0) pg MCHC 31.6 (31.0-37.0) g/dL RDW Std Deviation 48.2 (28.0-62.0) fl RDW Coeff of Ethan 15 (11.0-15.0) % Plt Count 201 (150-400) K/uL MPV 9.60 (7.40-12.00) fL Neut % (Auto) 71.2 (48.0-80.0) % Lymph % (Auto) 20.6 (16.0-40.0) % Lyon % (Auto) 7.8 (0.0-15.0) % Eos % (Auto) 0.4 (0.0-7.0) % Baso % (Auto) 0.0 (0.0-1.5) % Neut # (Auto) 3.7 (1.4-5.7) K/uL Lymph # (Auto) 1.1 (0.6-2.4) K/uL Lyon # (Auto) 0.4 (0.0-0.8) K/uL Eos # (Auto) 0.0 (0.0-0.7) K/uL Baso # (Auto) 0.0 (0.0-0.1) K/uL Nucleated RBC % 0.0 /100WBC Nucleated RBCs # 0 K/uL INR Sodium 145 (136-148) mmol/L Potassium 3.9 (3.5-5.1) mmol/L Chloride 107 (98-107) mmol/L Carbon Dioxide 27.0 (21.0-32.0) mmol/L BUN 16 (7.0-18.0) mg/dL Creatinine 1.0 (0.8-1.3) mg/dL Est Cr Clr Drug Dosing 62.43 Estimated GFR (MDRD) > 60.0 ml/min Glucose 122 H (74-106) mg/dL Calcium 8.4 L (8.5-10.1) mg/dL Phosphorus 3.4 (2.6-4.7) mg/dL Magnesium 1.7 L (1.8-2.4) mg/dL Total Bilirubin (0.2-1.0) mg/dL AST (15-37) IU/L ALT (14-63) IU/L Alkaline Phosphatase (46-116) U/L Troponin I < 0.050 (0.000-0.056) ng/mL B-Natriuretic Peptide (<100) PG/ML Total Protein (6.4-8.2) g/dL Albumin (3.4-5.0) g/dL Globulin (2.6-4.0) g/dL Albumin/Globulin Ratio (0.9-1.6) Lipase (73-393) U/L SARS-CoV-2 RNA (RT-PCR) (NEGATIVE) Result Diagrams: 10/02/19 02:24 10/02/19 02:24 Sepsis Event Note - Evaluation Sepsis Screening Result: No Definite Risk - Focused Exam Vital Signs: Vital Signs Temp Pulse Resp BP BP Pulse Ox 10/02/19 07:46 97.9 F 70 16 122/71 94 L 10/02/19 05:46 97.7 F 65 16 104/60 95 10/02/19 01:35 97.6 F 82 16 136/70 98 10/01/19 22:00 120/82 10/01/19 21:53 156/95 H 10/01/19 21:48 152/87 H 10/01/19 21:40 67 18 152/87 H 96 10/01/19 21:10 80 16 140/95 H 95 10/01/19 20:59 97.6 F 97 16 147/103 H 99 Date Exam was Performed: 10/02/19 Time Exam was Performed: 13:35 - Problem List (1) Atypical chest pain SNOMED Code(s): 838609338 ICD Code: R07.89 - OTHER CHEST PAIN Status: Acute Priority: High Current Visit: No (2) Syncope SNOMED Code(s): 750947891 ICD Code: R55 - SYNCOPE AND COLLAPSE Status: Acute Current Visit: Yes Qualifiers: Syncope type: unspecified Qualified Code(s): R55 - Syncope and collapse (3) Anxiety SNOMED Code(s): 36201522 ICD Code: F41.9 - ANXIETY DISORDER, UNSPECIFIED Status: Chronic Current Visit: No (4) Coronary artery disease SNOMED Code(s): 14034178 ICD Code: I25.10 - ATHSCL HEART DISEASE OF [place] CORONARY ARTERY W/O ANG PCTRS Status: Chronic Priority: Medium Current Visit: No Qualifiers: Associated angina: with unspecified angina (5) HTN (hypertension) SNOMED Code(s): 78522027 ICD Code: I10 - ESSENTIAL (PRIMARY) HYPERTENSION Status: Chronic Priority: High Current Visit: No Qualifiers: Hypertension type: essential hypertension Qualified Code(s): I10 - Essential (primary) hypertension (6) History of alcohol use SNOMED Code(s): 686985961 ICD Code: Z87.898 - PERSONAL HISTORY OF OTHER SPECIFIED CONDITIONS Status: Chronic Priority: Low Current Visit: No (7) History of coronary artery stent placement SNOMED Code(s): 384728015, 125405320 ICD Code: Z95.5 - PRESENCE OF CORONARY ANGIOPLASTY IMPLANT AND GRAFT Status: Chronic Priority: High Current Visit: No (8) Hyperlipidemia SNOMED Code(s): 28856457 ICD Code: E78.5 - HYPERLIPIDEMIA, UNSPECIFIED Status: Chronic Priority: Medium Current Visit: No Qualifiers: Hyperlipidemia type: unspecified Qualified Code(s): E78.5 - Hyperlipidemia, unspecified (9) Myocardial infarction SNOMED Code(s): 36878443 ICD Code: I21.9 - ACUTE MYOCARDIAL INFARCTION, UNSPECIFIED Status: Chronic Priority: High Current Visit: No Qualifiers: Involved coronary artery: unspecified coronary artery (10) Seizure SNOMED Code(s): 86446990 ICD Code: R56.9 - UNSPECIFIED CONVULSIONS Status: Chronic Priority: High Current Visit: No (11) Orthostatic hypotension SNOMED Code(s): 03544143 ICD Code: I95.1 - ORTHOSTATIC HYPOTENSION Status: Chronic Current Visit: No Problem List Initiated/Reviewed/Updated: Yes Orders Last 24hrs: Active Orders 24 hr Category Date Time Status Patient Status [ADT] Routine ADT 10/01/19 23:11 Active Ambulate [RC] ASDIRECTED Care 10/02/19 00:02 Active Antiembolic Devices [RC] PER UNIT ROUTINE Care 10/02/19 00:03 Active EKG Documentation Completion [RC] AM Care 10/01/19 20:47 Active Oxygen Therapy [RC] PRN Care 10/02/19 00:02 Active Pulse Oximetry [RC] PRN Care 10/02/19 00:03 Active RT Aerosol Therapy [RC] ASDIRECTED Care 10/02/19 00:04 Active Telemetry Monitoring [Cardiac Monitoring] [RC] . Care 10/02/19 01:50 Active DIRECTED Up With Assistance [RC] ASDIRECTED Care 10/02/19 00:02 Active VTE/DVT Education [RC] PER UNIT ROUTINE Care 10/02/19 00:02 Active Vital Signs [RC] Q4H Care 10/02/19 00:02 Active Heart Healthy Diet [DIET] Diet 10/02/19 Breakfast Active Echo Comp wo Cont [US] Stat Exams 10/02/19 00:04 Ordered UA W/GARCIA RFLX IF INDICATED [URIN] Stat Lab 10/02/19 08:06 Ordered Acetaminophen [Tylenol] Med 10/02/19 00:02 Active 650 mg PO Q4H PRN Albuterol/Ipratropium [DuoNeb 3.0-0.5 MG/3 ML] Med 10/02/19 00:02 Active 3 ml NEB Q4HRRT PRN Aspirin [Halfprin] Med 10/02/19 09:00 Active 81 mg PO DAILY Clopidogrel [Plavix] Med 10/02/19 09:00 Active 75 mg PO DAILY Lactated Ringers [Ringers, Lactated] 1,000 ml Med 10/02/19 00:15 Active IV ASDIRECTED Morphine Sulfate [Morphine] Med 10/02/19 00:08 Active 1 mg IVPUSH Q4H PRN Sodium Chloride 0.9% [Saline Flush] Med 10/01/19 20:47 Active 10 ml FLUSH ASDIRECTED PRN Sodium Chloride 0.9% [Saline Flush] Med 10/01/19 20:47 Active 2.5 ml FLUSH ASDIRECTED PRN carvediloL [Coreg] Med 10/02/19 09:00 Active 3.125 mg PO BID Saline Lock Insert [OM.PC] Stat Oth 10/01/19 20:47 Ordered Sequential Compression Device [OM.PC] Per Unit Routine Oth 10/02/19 00:03 Orde red Medication Orders Acetaminophen (Tylenol) 650 mg PO Q4H PRN PRN Reason: Pain (Mild 1-3)/fever Last Admin: 10/02/19 02:34 Dose: 650 mg Albuterol/Ipratropium (Duoneb 3.0-0.5 Mg/3 Ml) 3 ml NEB Q4HRRT PRN PRN Reason: Shortness Of Breath/wheezing Aspirin (Halfprin) 81 mg PO DAILY ERICK Carvedilol (Coreg) 3.125 mg PO BID ERICK Clopidogrel Bisulfate (Plavix) 75 mg PO DAILY [facility] Lactated Ringer's (Ringers, Lactated) 1,000 mls @ 100 mls/hr IV ASDIRECTED ERICK Last Admin: 10/02/19 02:30 Dose: 100 mls/hr Morphine Sulfate (Morphine) 1 mg IVPUSH Q4H PRN PRN Reason: Chest Pain Sodium Chloride (Saline Flush) 10 ml FLUSH ASDIRECTED PRN PRN Reason: Keep Vein Open Sodium Chloride (Saline Flush) 2.5 ml FLUSH ASDIRECTED PRN PRN Reason: Keep Vein Open Assessment/Plan Comment:: This 74 year old male admitted with atypical chest pain and syncope 1. Chest pain - Troponins trended - Telemetry remains SR with no ischemic changes. - Atypical, reproducible - ACS ruled out 2. Syncope - Spoke with Dr Lopez, will hold Coreg and Imdur. - Orthostatic VS stable this morning, then BP dropped - Monitor BP today 3. CAD/CHF/HTN: - Continue Plavix, ASA and Ranexa 4. Seizure - Keppra, stable VTE prophylaxis: SCDs Dispo: 1-2 days - Mortality Measure Prognosis:: Good
[2019-10-02] MEDS: levETIRAcetam 500 MG Tab PO SCH ×2 (08:45→22:03)
[2019-10-02] MEDS: Clopidogrel 75 MG Tab PO SCH (08:45)
[2019-10-02] MEDS: Aspirin 81 MG Tab.EC PO SCH (08:45)
[2019-10-02] MEDS ORDERED: Carvedilol 3.125 MG Tab PO SCH (09:00)
[2019-10-02] MEDS ORDERED: Ondansetron 4 MG/2 ML SDV IVPUSH PRN (11:23)
[2019-10-02] MEDS ORDERED: Magnesium Sulfate/Water 2 GM in Premix Bag 1 BAG IV ONE (15:08)
[2019-10-02] MEDS ORDERED: Pravastatin 40 MG Tab PO SCH (21:00)
[2019-10-02] MEDS ORDERED: Pantoprazole 40 MG Tab.CR PO SCH (21:00)
[2019-10-02] MEDS ORDERED: PARoxetine 20 MG Tab PO SCH (21:00)
[2019-10-03 08:07] LABS: BLOOD UREA NITROGEN,BUN 13 mg/dL (7.0-18.0); CARBON DIOXIDE,CO2 30.3 mmol/L (21.0-32.0); CHLORIDE,CL 107 mmol/L (98-107); GLUCOSE RANDOM 114 mg/dL (74-106); POTASSIUM,K 4.1 mmol/L (3.5-5.1); SODIUM,NA 144 mmol/L (136-148)
[2019-10-03] MEDS: levETIRAcetam 500 MG Tab PO SCH (08:52)
[2019-10-03] MEDS: Aspirin 81 MG Tab.EC PO SCH (08:52)
[2019-10-03] MEDS: Clopidogrel 75 MG Tab PO SCH (08:52)
--- NOTE | 2019-10-03 11:07 | PCM.DCSUM1 ---
Discharge Summary - Hospital Course Brief History: This 74 year old male with pmh of CAD with PCI 12/2016, HFpEF, chronic dizziness, seizure, CVA and HLD presented to the ED with complaints of chest pain and syncope at home. He reports the chest pain is off and on over the last few weeks but returned recently worse. He denies palpitations. He reports dyspnea, diaphoresis, and dizziness. he reports at home on Tuesday he took all his pills and started feeling nauseated so he stopped all his medications. He hasn't eaten well the last few days as well due to intermittent nausea. he denies abdominal pain. No dysuria. No focal neurological deficits. In the ED labwork WNL. Troponin negative. EKG shows non specific ST- T abnormalities, no acute ischemic changes. CXR negative. He was treated with nitro in the ED x 3 then had significantly lower BP with syncopal episode. He was admitted for chest pain and syncope. Lexiscan 07/2019 showed fixed inferolateral severe defect, basal to mid basal to distal fixed severe inferior wall. Similar to previous stress tests, LVEF 38%. Has had some compliance issues with medications in the past as well as not follow up with providers. Diagnosis: Stroke: No - Discharge Data Discharge Date: 10/03/19 Discharge Disposition: Home, Self-Care 01 Condition: Stable - Referral to Home Health Primary Care Physician: Vernell Donovan MD - Discharge Diagnosis/Problem(s) (1) Atypical chest pain SNOMED Code(s): 403560265 ICD Code: R07.89 - OTHER CHEST PAIN Status: Acute Priority: High Current Visit: No (2) Syncope SNOMED Code(s): 209116872 ICD Code: R55 - SYNCOPE AND COLLAPSE Status: Acute Current Visit: Yes Qualifiers: Syncope type: unspecified Qualified Code(s): R55 - Syncope and collapse (3) Anxiety SNOMED Code(s): 59030694 ICD Code: F41.9 - ANXIETY DISORDER, UNSPECIFIED Status: Chronic Current Visit: No (4) Coronary artery disease SNOMED Code(s): 60224140 ICD Code: I25.10 - ATHSCL HEART DISEASE OF [place] CORONARY ARTERY W/O ANG PCTRS Status: Chronic Priority: Medium Current Visit: No Qualifiers: Associated angina: with unspecified angina (5) HTN (hypertension) SNOMED Code(s): 11031112 ICD Code: I10 - ESSENTIAL (PRIMARY) HYPERTENSION Status: Chronic Priority: High Current Visit: No Qualifiers: Hypertension type: essential hypertension Qualified Code(s): I10 - Essential (primary) hypertension (6) History of alcohol use SNOMED Code(s): 853603192 ICD Code: Z87.898 - PERSONAL HISTORY OF OTHER SPECIFIED CONDITIONS Status: Chronic Priority: Low Current Visit: No (7) History of coronary artery stent placement SNOMED Code(s): 050579196, 436433354 ICD Code: Z95.5 - PRESENCE OF CORONARY ANGIOPLASTY IMPLANT AND GRAFT Status: Chronic Priority: High Current Visit: No (8) Hyperlipidemia SNOMED Code(s): 05404804 ICD Code: E78.5 - HYPERLIPIDEMIA, UNSPECIFIED Status: Chronic Priority: Medium Current Visit: No Qualifiers: Hyperlipidemia type: unspecified Qualified Code(s): E78.5 - Hyperlipidemia, unspecified (9) Myocardial infarction SNOMED Code(s): 05509339 ICD Code: I21.9 - ACUTE MYOCARDIAL INFARCTION, UNSPECIFIED Status: Chronic Priority: High Current Visit: No Qualifiers: Involved coronary artery: unspecified coronary artery (10) Seizure SNOMED Code(s): 92246229 ICD Code: R56.9 - UNSPECIFIED CONVULSIONS Status: Chronic Priority: High Current Visit: No (11) Orthostatic hypotension SNOMED Code(s): 53368378 ICD Code: I95.1 - ORTHOSTATIC HYPOTENSION Status: Chronic Current Visit: No - Patient Summary/Data Consults: Consultations 10/02/19 09:23 PT Evaluation and Treatment [CONS] Routine Hospital Course: Admitting Diagnoses: Atypical chest pain Syncope Discharge Diagnoses: Atypical chest pain resolved Syncope Dehydration Other PMH: CAD PCI 2017 HFpEF Chronic dizziness Orthostatic hypotension CVA HLD Non- compliance with medical regimen Dino was admitted secondary to chest pain and syncope which occurred in the ED after Nitro, but he reported it have happened at home as well. Chest pain was atypical and reproducible to L chest wall. Troponins were trended and ACS ruled out. Has had extensive workup with Dr Lopez, which recent Lexiscan in July 2019. Dr Lopez was contact regarding medications and BP. Coreg and Imdru held during admission and BP and dizziness improved. He was also treated with IVFs. BP remain stable today, mild orthostatic hypotension noted, which is at baseline present. He is ambulating in his room per self with no concerns and is requesting discharge home. He will go home on previous ordered medications, but we will discontinue Imdur for now and HOLD Coreg until follow up with either Dr Donovan or Dr Lopez to evaluate BP. He is to monitor BP at home. Return to ED or clinic if concerns should arise. - Patient Instructions Diet: Heart Healthy Diet Activity: No Strenuous Activities Driving: Do Not Drive Showering/Bathing: May Shower Notify Provider of: Fever, Increased Pain, Swelling and Redness, Drainage, Nausea and/or Vomiting Other/Special Instructions: Monitor Blood pressure at home. Keep log and bring to follow up appointments. - Discharge Plan *PRESCRIPTION DRUG MONITORING PROGRAM REVIEWED*: Not Applicable *COPY OF PRESCRIPTION DRUG MONITORING REPORT IN PATIENT SWEETIE: Not Applicable Home Medications: Home Meds Pantoprazole [ProTONIX] 40 mg PO BEDTIME 09/22/16 [History] Pravastatin [Pravachol] 40 mg PO BEDTIME 09/22/16 [History] Clopidogrel [Plavix] 75 mg PO DAILY 04/19/17 [History] PARoxetine [Paxil] 20 mg PO BEDTIME 04/19/17 [History] Aspirin [Halfprin] 81 mg PO DAILY #0 tab.ec 04/20/17 [Rx] Nitroglycerin [Nitrostat] 0.4 mg SL Q5M PRN MDD 3 03/07/18 [History] Ranolazine [Ranexa] 500 mg PO BID 01/14/19 [History] levETIRAcetam [Levetiracetam] 500 mg PO BID 01/14/19 [History] carvediloL [Carvedilol] 3.125 mg PO BID #0 10/03/19 [Rx] Oxygen Therapy Mode: Room Air Patient Handouts: Nonspecific Chest Pain, Adult, [id number] Referrals: Vernell Donovan MD [Primary Care Provider] - 10/09/19 1:30 pm (Arrive 15 minutes early with a photo ID, insurance card, and a mask if you have one. ) - Discharge Summary/Plan Comment DC Time >30 min.: No - Patient Data Vitals - Most Recent: Last Vital Signs Temp 97.5 F 06/17/20 07:30 Pulse 66 10/03/19 07:30 Resp 18 10/03/19 07:30 BP 139/86 10/03/19 07:30 Pulse Ox 96 10/03/19 07:30 Orthostatic Blood Pressure [ 110/69 Standing] Orthostatic Blood Pressure [ 122/78 Sitting] Orthostatic Blood Pressure [ 141/81 Supine] Weight - Most Recent: 71.804 kg I&O - Last 24 hours: Intake & Output 10/02/19 10/03/19 10/03/19 22:59 06:59 14:59 Intake Total 600 3358 Output Total 900 1685 Balance -300 1673 Lab Results - Last 24 hrs: Laboratory Results - last 24 hr 10/03/19 Range/Units 05:40 Sodium 144 (136-148) mmol/L Potassium 4.1 (3.5-5.1) mmol/L Chloride 107 (98-107) mmol/L Carbon Dioxide 30.3 (21.0-32.0) mmol/L BUN 13 (7.0-18.0) mg/dL Creatinine 0.9 (0.8-1.3) mg/dL Est Cr Clr Drug Dosing 69.36 mL/min Estimated GFR (MDRD) > 60.0 ml/min Glucose 114 H (74-106) mg/dL Calcium 8.3 L (8.5-10.1) mg/dL Magnesium 2.1 (1.8-2.4) mg/dL Med Orders - Current: Current Medications Acetaminophen (Tylenol) 650 mg PO Q4H PRN PRN Reason: Pain (Mild 1-3)/fever Last Admin: 10/02/19 08:44 Dose: 650 mg Documented by: Albuterol/Ipratropium (Duoneb 3.0-0.5 Mg/3 Ml) 3 ml NEB Q4HRRT PRN PRN Reason: Shortness Of Breath/wheezing Aspirin (Halfprin) 81 mg PO DAILY [facility] Last Admin: 10/03/19 08:52 Dose: 81 mg Documented by: Clopidogrel Bisulfate (Plavix) 75 mg PO DAILY [facility] Last Admin: 10/03/19 08:52 Dose: 75 mg Documented by: Levetiracetam (Keppra) 500 mg PO BID [facility] Last Admin: 10/03/19 08:52 Dose: 500 mg Documented by: Morphine Sulfate (Morphine) 1 mg IVPUSH Q4H PRN PRN Reason: Chest Pain Ondansetron HCl (Zofran) 4 mg IVPUSH Q4H PRN PRN Reason: Nausea Pantoprazole Sodium (Protonix) 40 mg PO BEDTIME [facility] Last Admin: 10/02/19 22:02 Dose: 40 mg Documented by: Paroxetine HCl (Paxil) 20 mg PO BEDTIME [facility] Last Admin: 10/02/19 22:02 Dose: 20 mg Documented by: Pravastatin Sodium (Pravachol) 40 mg PO BEDTIME [facility] Last Admin: 10/02/19 22:02 Dose: 40 mg Documented by: Ranolazine (Ranexa) 500 mg PO BID [facility] Last Admin: 10/03/19 08:52 Dose: 500 mg Documented by: Sodium Chloride (Saline Flush) 10 ml FLUSH ASDIRECTED PRN PRN Reason: Keep Vein Open Sodium Chloride (Saline Flush) 2.5 ml FLUSH ASDIRECTED PRN PRN Reason: Keep Vein Open Discontinued Medications Carvedilol (Coreg) 3.125 mg PO BID [facility] Last Admin: 10/02/19 08:45 Dose: 3.125 mg Documented by: Sodium Chloride (Normal Saline) 1,000 mls @ 999 mls/hr IV .Bolus ONE Stop: 10/01/19 21:47 Last Admin: 10/01/19 21:25 Dose: 999 mls/hr Documented by: Sodium Chloride (Normal Saline) 1,000 mls @ 999 mls/hr IV .BOLUS ONE Stop: 10/01/19 23:42 Last Admin: 10/01/19 22:42 Dose: 999 mls/hr Documented by: Lactated Ringer's (Ringers, Lactated) 1,000 mls @ 100 mls/hr IV ASDIRECTED [facility] Last Admin: 10/02/19 21:50 Dose: 100 mls/hr Documented by: Magnesium Sulfate 2 gm/ Premix 50 mls @ 50 mls/hr IV ONETIME ONE Stop: 10/02/19 16:07 Last Admin: 10/02/19 15:51 Dose: 50 mls/hr Documented by: Magnesium Oxide (Magnesium Oxide) 800 mg PO ONETIME ONE Stop: 10/01/19 23:57 Last Admin: 10/02/19 03:05 Dose: 800 mg Documented by: Morphine Sulfate (Morphine) 4 mg IVPUSH ONETIME ONE Stop: 10/01/19 21:32 Last Admin: 10/01/19 21:47 Dose: 4 mg Documented by: Nitroglycerin (Nitrostat) 0.4 mg SL Q5M PRN PRN Reason: Chest Pain Last Admin: 10/01/19 22:00 Dose: 0.4 mg Documented by: Ondansetron HCl (Zofran) Confirm Administered Dose 4 mg .ROUTE .STK-MED ONE Stop: 10/01/19 22:14 Last Admin: 10/01/19 22:42 Dose: Not Given Documented by: Ondansetron HCl (Zofran) 4 mg IVPUSH ONETIME ONE Stop: 10/01/19 22:42 Last Admin: 10/01/19 22:42 Dose: 4 mg Documented by: - Exam General: Reports: Alert, Oriented, Cooperative, No Acute Distress Lungs: Reports: Clear to Auscultation, Normal Respiratory Effort Cardiovascular: Reports: Regular Rate, Regular Rhythm GI/Abdominal Exam: Normal Bowel Sounds, Soft, Non-Tender Extremities: Normal Inspection, Normal Range of Motion, Non-Tender, No Pedal Edema Neurological: Reports: No New Focal Deficit Psy/Mental Status: Reports: Alert, Normal Affect, Normal Mood
[2019-10-03 11:20] VITALS: BP 139/82; PULSE 74
== END 2019-10-03 12:15 | disposition home or self-care (01) ==
LOC: MW.ED 20:43 → MW.MS 23:11
PROVIDERS: ADMIT Student in an Organized Health Care Education/Training Program; ATTEND Student in an Organized Health Care Education/Training Program
DX: R07.89 Other chest pain (principal); I95.1 Orthostatic hypotension; E86.0 Dehydration; F41.9 Anxiety disorder, unspecified; I25.10 Atherosclerotic heart disease of native coronary artery without angina pectoris; E78.5 Hyperlipidemia, unspecified; I25.2 Old myocardial infarction; R56.9 Unspecified convulsions; I11.0 Hypertensive heart disease with heart failure; E11.9 Type 2 diabetes mellitus without complications; Z20.828 Contact with and (suspected) exposure to other viral communicable diseases; I50.30 Unspecified diastolic (congestive) heart failure; Z86.73 Personal history of transient ischemic attack (TIA), and cerebral infarction without residual deficits; Z91.14 Patient's other noncompliance with medication regimen; Z95.5 Presence of coronary angioplasty implant and graft; Z87.898 Personal history of other specified conditions; Z79.899 Other long term (current) drug therapy; Z79.82 Long term (current) use of aspirin
CPT/HCPCS: 36415; 71045; 80048; 80053; 81003; 83690; 83735; 83880; 84100; 84484; 85025; 85610; 93005; 93306; 96361; 96374; 96375; 97161; 99285; A9270; G0378; J2270; J2405; J3475; J7030; J7120; U0002; 99291

== ENCOUNTER 2020-04-19 13:22 | Observation (INO) | payer MEDICAID, MEDICARE ==
[2020-04-19] MEDS ORDERED: Sodium Chloride 0.9% 2.5 ML Syringe FLUSH PRN (13:24)
[2020-04-19] MEDS: Sodium Chloride 0.9% 10 ML Syringe FLUSH PRN ×2 (13:48→18:35)
[2020-04-19] MEDS ORDERED: Morphine 4 MG/ML Syringe IVPUSH ONE (14:05)
[2020-04-19 14:08] LABS: BLOOD UREA NITROGEN,BUN 16 mg/dL (7.0-18.0); CARBON DIOXIDE,CO2 28.4 mmol/L (21.0-32.0); CHLORIDE,CL 101 mmol/L (98-107); GLUCOSE RANDOM 104 mg/dL (74-106); POTASSIUM,K 3.4 mmol/L (3.5-5.1); SODIUM,NA 138 mmol/L (136-148)
--- NOTE | 2020-04-19 14:09 | EDM.PDOC ---
ED HPI GENERAL MEDICAL PROBLEM - General Chief Complaint: Chest Pain Stated Complaint: CHEST PAIN Time Seen by Provider: 04/19/20 13:24 - History of Present Illness INITIAL COMMENTS - FREE TEXT/NARRATIVE: Patient is a 74-year-old male reports 3 stents in the past who is presenting with left-sided chest pain it is a sharp nonradiating left-sided chest pain that he first felt last night and then again this morning. He states that last for quite some time. He has some mild shortness of breath associated with that the pain is nonpleuritic pain occurs at rest does not radiate to the jaw or the arms. Does not go to the back. It is currently 8 out of 10. He reports that he took all of his medicines including aspirin this morning. Left chest Pain Score (Numeric/FACES): 8 - Related Data Allergies Allergy/AdvReac Type Severity Reaction Status Date / Time No Known Allergies Allergy Verified 04/19/20 13:32 Home Meds: Home Meds Pantoprazole [ProTONIX] 40 mg PO BEDTIME 09/22/16 [History] Pravastatin [Pravachol] 40 mg PO BEDTIME 09/22/16 [History] Clopidogrel [Plavix] 75 mg PO DAILY 04/19/17 [History] PARoxetine [Paxil] 20 mg PO BEDTIME 04/19/17 [History] Aspirin [Halfprin] 81 mg PO DAILY #0 tab.ec 04/20/17 [Rx] Nitroglycerin [Nitrostat] 0.4 mg SL Q5M PRN MDD 3 03/07/18 [History] Ranolazine [Ranexa] 500 mg PO BID 01/14/19 [History] levETIRAcetam [Levetiracetam] 500 mg PO BID 01/14/19 [History] Isosorbide Mononitrate 10 mg PO BID 04/19/20 [History] Sildenafil Citrate 25 mg PO ASDIRECTED PRN 04/19/20 [History] carvediloL [Carvedilol] 3.125 mg PO BIDMEALS 04/19/20 [History] Past Medical History - Past Health History Medical/Surgical History: Denies Medical/Surgical History HEENT History: Reports: Other (See Below) Other HEENT History: uses reading glasses Cardiovascular History: Reports: CAD, High Cholesterol, Hypertension, ID, Stents, Other (See Below) Other Cardiovascular History: ID in 2009 Respiratory History: Reports: None Gastrointestinal History: Reports: None Genitourinary History: Reports: None Musculoskeletal History: Reports: None Other Musculoskeletal History: has arthritis in back Neurological History: Reports: Vertigo, Other (See Below) Other Neuro History: hx of Claustrophobia Psychiatric History: Reports: Anxiety, Depression, Other (See Below) Other Psychiatric History: Claustrophobia 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, Type II 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 Model 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: 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 Hematologic History: Reports: Anticoagulation Therapy Immunologic History: Reports: None Oncologic (Cancer) History: Reports: None Dermatologic History: Reports: None - Infectious Disease History Infectious Disease History: Reports: None - Past Surgical History Head Surgeries/Procedures: Reports: None HEENT Surgical History: Reports: Oral Surgery, Tonsillectomy, Other (See Below) Other HEENT Surgeries/Procedures: dental extractions, enlarged lymph nodes removed from neck Cardiovascular Surgical History: Reports: Coronary Artery Stent Other Cardiovascular Surgeries/Procedures: Stents x3 Respiratory Surgical History: Reports: None GI Surgical History: Reports: Appendectomy Male Surgical History: Reports: None Endocrine Surgical History: Reports: None Musculoskeletal Surgical History: Reports: None Oncologic Surgical History: Reports: None Dermatological Surgical History: Reports: None Social & Family History - Family History Family Medical History: No Pertinent Family History Cardiac: Reports: ID Respiratory: Reports: None Endocrine/Metabolic: Reports: Diabetes, Type I Hematologic: Reports: None Oncologic: Reports: Other (See Below) Other Oncologic Family History: Father side has cancer but patient doesn't know exactly what kind of CA - Tobacco Use Tobacco Use Status *Q: Unknown Ever Used Tobacco - Caffeine Use Caffeine Use: Reports: Coffee Other Caffeine Use: decaf coffee Caffeine Use Comment: daily - Living Situation & Occupation Living situation: Reports: Occupation: Retired ED ROS GENERAL - Review of Systems Review Of Systems: See Below Free Text/Narrative/Comment: General: No fever. Skin: No rash. Eyes: No vision problems. ENT: No sore throat. Neck: No neck stiffness. Respiratory: Per HPI Cardiac: Per HPI Gastrointestinal: No nausea, vomiting or abdominal pain. Urinary: No dysuria. Musculoskeletal: No myalgias/arthralgias. Neurologic: No headache. ED EXAM, GENERAL - Physical Exam Exam: See Below Free Text/Narrative:: General Appearance: No acute distress, appears comfortable Skin: No rash HEENT: Normocephalic/atraumatic, sclera anicteric, mucous membranes moist Neck: Normal range of motion Chest and Lungs: Bilateral breath sounds, clear to auscultation Cardiovascular: Regular rate and rhythm, no murmur Abdomen: Soft, non-tender Back: Normal Musculoskeletal: No edema or tenderness Neurologic: Awake, alert, no obvious deficits, moving all extremities Psychiatric: Appropriate, cooperative #1 Interpretation EKG Date: 04/19/20 Time: 13:40 EKG Interpretation Comments: Sinus rhythm rate of 75 significant baseline wander but no acute ischemia normal axis Course - Vital Signs Last Recorded V/S: Last Vital Signs Temp 98.0 F 04/19/20 13:32 Pulse 75 04/19/20 13:32 Resp 17 04/19/20 13:32 BP 164/104 H 04/19/20 13:32 Pulse Ox 98 04/19/20 13:32 - Orders/Labs/Meds Orders: Active Orders 24 hr Category Date Time Status EKG Documentation Completion [RC] STAT Care 04/19/20 13:24 Active COVID-19/FLU A+B [MOLEC] Stat Lab 04/19/20 14:51 Ordered Sodium Chloride 0.9% [Saline Flush] Med 04/19/20 13:24 Active 10 ml FLUSH ASDIRECTED PRN Sodium Chloride 0.9% [Saline Flush] Med 04/19/20 13:24 Active 2.5 ml FLUSH ASDIRECTED PRN Saline Lock Insert [OM.PC] Stat Oth 04/19/20 13:24 Ordered Medication Orders Sodium Chloride (Saline Flush) 10 ml FLUSH ASDIRECTED PRN PRN Reason: Keep Vein Open Last Admin: 04/19/20 13:48 Dose: 10 ml Documented by: ABRIL Sodium Chloride (Saline Flush) 2.5 ml FLUSH ASDIRECTED PRN PRN Reason: Keep Vein Open Last Admin: 04/19/20 13:48 Dose: 2.5 ml Documented by: ABRIL Labs: Laboratory Tests 04/19/20 04/19/20 Range/Units 13:40 13:40 WBC 4.76 (4.0-11.0) K/uL RBC 4.62 (4.50-5.90) M/uL Hgb 12.9 L (13.0-17.0) g/dL Hct 40.2 (38.0-50.0) % MCV 87.0 (80.0-98.0) fL MCH 27.9 (27.0-32.0) pg MCHC 32.1 (31.0-37.0) g/dL RDW Std Deviation 46.8 (28.0-62.0) fl RDW Coeff of Ethan 15 (11.0-15.0) % Plt Count 261 (150-400) K/uL MPV 9.70 (7.40-12.00) fL Neut % (Auto) 54.0 (48.0-80.0) % Lymph % (Auto) 31.1 (16.0-40.0) % Kerr % (Auto) 13.2 (0.0-15.0) % Eos % (Auto) 1.7 (0.0-7.0) % Baso % (Auto) 0.0 (0.0-1.5) % Neut # (Auto) 2.6 (1.4-5.7) K/uL Lymph # (Auto) 1.5 (0.6-2.4) K/uL Kerr # (Auto) 0.6 (0.0-0.8) K/uL Eos # (Auto) 0.1 (0.0-0.7) K/uL Baso # (Auto) 0.0 (0.0-0.1) K/uL Nucleated RBC % 0.0 /100WBC Nucleated RBCs # 0 K/uL Sodium 138 (136-148) mmol/L Potassium 3.4 L (3.5-5.1) mmol/L Chloride 101 (98-107) mmol/L Carbon Dioxide 28.4 (21.0-32.0) mmol/L BUN 16 (7.0-18.0) mg/dL Creatinine 1.1 (0.8-1.3) mg/dL Est Cr Clr Drug Dosing 58.73 mL/min Estimated GFR (MDRD) > 60.0 ml/min Glucose 104 (74-106) mg/dL Calcium 9.0 (8.5-10.1) mg/dL Total Bilirubin 0.5 (0.2-1.0) mg/dL AST 15 (15-37) IU/L ALT 13 L (14-63) IU/L Alkaline Phosphatase 79 (46-116) U/L Troponin I < 0.050 (0.000-0.056) ng/mL Total Protein 7.6 (6.4-8.2) g/dL Albumin 4.0 (3.4-5.0) g/dL Globulin 3.6 (2.6-4.0) g/dL Albumin/Globulin Ratio 1.1 (0.9-1.6) Meds: Medications Generic Name Dose Route Start Last Admin Trade Name Freq PRN Reason Stop Dose Admin Sodium Chloride 10 ml 04/19/20 13:24 04/19/20 13:48 Saline Flush FLUSH 10 ml ASDIRECTED PRN Administration Keep Vein Open Sodium Chloride 2.5 ml 04/19/20 13:24 04/19/20 13:48 Saline Flush FLUSH 2.5 ml ASDIRECTED PRN Administration Keep Vein Open Discontinued Medications Generic Name Dose Route Start Last Admin Trade Name Freq PRN Reason Stop Dose Admin Morphine Sulfate 4 mg 04/19/20 14:05 04/19/20 14:35 Morphine IVPUSH 04/19/20 14:06 4 mg ONETIME ONE Administration Departure - Departure Time of Disposition: 15:07 Disposition: Refer to Observation Condition: Good Clinical Impression: Chest pain Qualifiers: Chest pain type: unspecified Qualified Code(s): R07.9 - Chest pain, unspecified - Discharge Information *PRESCRIPTION DRUG MONITORING PROGRAM REVIEWED*: Not Applicable *COPY OF PRESCRIPTION DRUG MONITORING REPORT IN PATIENT SWEETIE: Not Applicable Referrals: Bo Lopez MD [Primary Care Provider] - Forms: ED Department Discharge Sepsis Event Note (ED) - Evaluation Sepsis Screening Result: No Definite Risk - Focused Exam Vital Signs: Vital Signs Temp Pulse Resp BP Pulse Ox 04/19/20 13:32 98.0 F 75 17 164/104 H 98 - My Orders Last 24 Hours: My Active Orders 04/19/20 13:24 EKG Documentation Completion [RC] STAT Sodium Chloride 0.9% [Saline Flush] 10 ml FLUSH ASDIRECTED PRN Sodium Chloride 0.9% [Saline Flush] 2.5 ml FLUSH ASDIRECTED PRN Saline Lock Insert [OM.PC] Stat 04/19/20 14:51 COVID-19/FLU A+B [MOLEC] Stat - Assessment/Plan Last 24 Hours: My Active Orders 04/19/20 13:24 EKG Documentation Completion [RC] STAT Sodium Chloride 0.9% [Saline Flush] 10 ml FLUSH ASDIRECTED PRN Sodium Chloride 0.9% [Saline Flush] 2.5 ml FLUSH ASDIRECTED PRN Saline Lock Insert [OM.PC] Stat 04/19/20 14:51 COVID-19/FLU A+B [MOLEC] Stat Assessment:: 74-year-old male presenting with left-sided chest pain. ACS needs to be considered no STEMI on EKG patient reports similar to prior STEMI episodes. During triage nurse reports patient on brief period of loss of consciousness of a few seconds. The patient regained consciousness immediately he was not yet on telemetry at that time. He does not recall this he denies a history of palpitations certainly syncope needs to be considered. PE aortic dissection considered as well but felt much less likely. Relevant labs and chest x-ray pending. 1507: Patient's labs are unremarkable initial troponin negative chest x-ray negative. Patient's chest pain improved with single dose of morphine. Patient discussed in full with Dr. Carrasco felt stable for admission for observation here patient to be admitted for serial enzymes and reassessment.
--- NOTE | 2020-04-19 14:14 | CR ---
INDICATION: Chest pain COMPARISON: October 01, 2019 TECHNIQUE: Single view of the chest was acquired FINDINGS: TUBES AND LINES: None. HEART AND MEDIASTINUM: The heart size is normal. The mediastinal contour appears normal for patient age. LUNGS AND PLEURAL SPACES: The lungs appear normal.The pleural spaces are unremarkable. OSSEOUS STRUCTURES: Demineralization and degenerative change. Old right clavicular fracture. Possible old left clavicular fracture. Stable elevation of left hemidiaphragm. IMPRESSION: No acute appearing finding when compared to October 01, 2019. Dictated by Chuy hSeets MD @ Apr 19 2020 2:12PM Signed by Dr. Chuy Sheets @ Apr 19 2020 2:13PM
[2020-04-19 15:59] LABS: CORONAVIRUS COVID-19 NAA NEGATIVE (NEGATIVE); INFLUENZA A NAA NEGATIVE (NEGATIVE); INFLUENZA B NAA NEGATIVE (NEGATIVE)
[2020-04-19] MEDS ORDERED: Ondansetron 4 MG/2 ML SDV IVPUSH PRN (16:38)
[2020-04-19] MEDS ORDERED: Glucagon,Human Recombinant 1 MG Vial IM PRN (16:38)
[2020-04-19] MEDS ORDERED: Morphine 10 MG/ML Syringe IVPUSH PRN (16:38)
[2020-04-19] MEDS ORDERED: 50% Dextrose in Water 50 ML Syringe IV PRN (16:38)
[2020-04-19] MEDS ORDERED: Acetaminophen 325 MG Tab PO PRN (16:38)
[2020-04-19] MEDS ORDERED: Pantoprazole 40 MG Vial IV SCH (16:45)
[2020-04-19] MEDS ORDERED: Enoxaparin 40 MG/0.4 ML Syringe SUBCUT SCH (16:45)
[2020-04-19] MEDS ORDERED: SILDENAFIL CITRATE 25 MG PO PRN (16:47)
[2020-04-19] MEDS ORDERED: Nitroglycerin 0.4 MG Tab.SL SL PRN (16:47)
--- NOTE | 2020-04-19 16:59 | PCM.HP.2 ---
H&P History of Present Illness - General Date of Service: 04/19/20 Admit Problem/Dx: Admission Diagnosis/Problem Admission Diagnosis/Problem Chest pain Source of Information: Patient History Limitations: Reports: No Limitations - History of Present Illness Initial Comments - Free Text/Narative: Is a 74-year-old male with a past medical history of coronary artery disease, MO with 3 times stent placement, hypertension, hyperlipidemia. Comes in with complains of left-sided chest pain described as 8 out of 10 on the pain scale described as being sharp and nonpleuritic in nature. States it did not radiate anywhere. Says it is for she is noted last night and again this morning. Denies any associated shortness of breath, palpations, nausea, vomiting, diaphoresis. Says a previous MO felt much like this. States he is compliant with his home medications and had an aspirin this morning. Furthermore denied any fever, chills, cough, GI or symptoms, leg swelling, leg pain, any travel or sick contacts. ER course: EKGsinus rhythm rate of 75 with baseline wander and no ischemic changes, Covid, flu AMB pending, CBC and CMP unremarkable, chest x-ray unremarkable, troponin negative. Left chest Pain Score (Numeric/FACES): 8 - Related Data Allergies/Adverse Reactions: Allergies Allergy/AdvReac Type Severity Reaction Status Date / Time No Known Allergies Allergy Verified 04/19/20 13:32 Home Medications: Home Meds Pantoprazole [ProTONIX] 40 mg PO BEDTIME 09/22/16 [History] Pravastatin [Pravachol] 40 mg PO BEDTIME 09/22/16 [History] Clopidogrel [Plavix] 75 mg PO DAILY 04/19/17 [History] PARoxetine [Paxil] 20 mg PO BEDTIME 04/19/17 [History] Aspirin [Halfprin] 81 mg PO DAILY #0 tab.ec 04/20/17 [Rx] Nitroglycerin [Nitrostat] 0.4 mg SL Q5M PRN MDD 3 03/07/18 [History] Ranolazine [Ranexa] 500 mg PO BID 01/14/19 [History] levETIRAcetam [Levetiracetam] 500 mg PO BID 01/14/19 [History] Isosorbide Mononitrate 10 mg PO BID 04/19/20 [History] Sildenafil Citrate 25 mg PO ASDIRECTED PRN 04/19/20 [History] carvediloL [Carvedilol] 3.125 mg PO BIDMEALS 04/19/20 [History] Past Medical History - Past Health History Medical/Surgical History: Denies Medical/Surgical History HEENT History: Reports: Other (See Below) Other HEENT History: uses reading glasses Cardiovascular History: Reports: CAD, High Cholesterol, Hypertension, MO, Stents, Other (See Below) Other Cardiovascular History: MO in 2009 Respiratory History: Reports: None Gastrointestinal History: Reports: None Genitourinary History: Reports: None Musculoskeletal History: Reports: None Other Musculoskeletal History: has arthritis in back Neurological History: Reports: Vertigo, Other (See Below) Other Neuro History: hx of Claustrophobia Psychiatric History: Reports: Anxiety, Depression, Other (See Below) Other Psychiatric History: Claustrophobia 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, Type II Insulin Pump Model and Bonbon Dipper: None Hematologic History: Reports: Anticoagulation Therapy Immunologic History: Reports: None Oncologic (Cancer) History: Reports: None Dermatologic History: Reports: None - Infectious Disease History Infectious Disease History: Reports: None - Past Surgical History Head Surgeries/Procedures: Reports: None HEENT Surgical History: Reports: Oral Surgery, Tonsillectomy, Other (See Below) Other HEENT Surgeries/Procedures: dental extractions, enlarged lymph nodes removed from neck Cardiovascular Surgical History: Reports: Coronary Artery Stent Other Cardiovascular Surgeries/Procedures: Stents x3 Respiratory Surgical History: Reports: None GI Surgical History: Reports: Appendectomy Male Surgical History: Reports: None Endocrine Surgical History: Reports: None Musculoskeletal Surgical History: Reports: None Oncologic Surgical History: Reports: None Dermatological Surgical History: Reports: None Social & Family History - Family History Family Medical History: No Pertinent Family History Cardiac: Reports: MO Respiratory: Reports: None Endocrine/Metabolic: Reports: Diabetes, Type I Hematologic: Reports: None Oncologic: Reports: Other (See Below) Other Oncologic Family History: Father side has cancer but patient doesn't know exactly what kind of CA - Tobacco Use Tobacco Use Status *Q: Never Tobacco User - Caffeine Use Caffeine Use: Reports: Coffee Other Caffeine Use: decaf coffee Caffeine Use Comment: daily - Living Situation & Occupation Living situation: Reports: Occupation: Retired H&P Review of Systems - Review of Systems: Review Of Systems: Comprehensive ROS is negative, except as noted in HPI. Exam - Exam Exam: See Below - Vital Signs Vital Signs: Last Vital Signs Temp 98.0 F 04/19/20 13:32 Pulse 65 04/19/20 16:13 Resp 17 04/19/20 13:32 BP 123/76 04/19/20 16:13 Pulse Ox 93 L 04/19/20 16:13 Weight: 160 lb - Exam Quality Assessment: DVT Prophylaxis (Already on home dose of aspirin 81 mg and Plavix 75 mg) General: Alert, Oriented, Cooperative, Moderate Distress (Chest pain relief with pain medication) HEENT: Conjunctiva Clear, EACs Clear, EOMI, Mucosa Moist & Bally, Normal Nasal Septum, Posterior Pharynx Clear, Pupils Equal, Pupils Reactive, TMs Clear, PERRLA Neck: Supple, Trachea Midline, +2 Carotid Pulse wo Bruit. No: Lymphadenopathy, JVD Lungs: Clear to Auscultation, Normal Respiratory Effort Cardiovascular: Regular Rate, Regular Rhythm GI/Abdominal Exam: Normal Bowel Sounds, Soft, Non-Tender, No Organomegaly, No Distention, No Abnormal Bruit, No Mass Extremities: Normal Inspection, Normal Range of Motion Peripheral Pulses: 2+: Radial (L), Radial (R), Dorsalis Pedis (L), Dorsalis Pedis (R) Skin: Warm, Dry, Intact Neurological: Cranial Nerves Intact, Reflexes Equal Bilateral Neuro Extensive - Mental Status: Alert, Oriented x3, Normal Mood/Affect, Normal Cognition, Memory Intact Neuro Extensive - Motor, Sensory, Reflexes: CN II-XII Intact, Normal Reflexes DTR: 2+: Bicep (L), Bicep (R), Tricep (L), Tricep (R), Patella (L), Patella (R), Achilles (L), Achilles (R) Psychiatric: Alert, Normal Affect, Normal Mood - Patient Data Lab Results Last 24 hrs: Laboratory Results - last 24 hr 04/19/20 04/19/20 04/19/20 Range/Units 13:40 13:40 15:15 WBC 4.76 (4.0-11.0) K/uL RBC 4.62 (4.50-5.90) M/uL Hgb 12.9 L (13.0-17.0) g/dL Hct 40.2 (38.0-50.0) % MCV 87.0 (80.0-98.0) fL MCH 27.9 (27.0-32.0) pg MCHC 32.1 (31.0-37.0) g/dL RDW Std Deviation 46.8 (28.0-62.0) fl RDW Coeff of Ethan 15 (11.0-15.0) % Plt Count 261 (150-400) K/uL MPV 9.70 (7.40-12.00) fL Neut % (Auto) 54.0 (48.0-80.0) % Lymph % (Auto) 31.1 (16.0-40.0) % Mathews % (Auto) 13.2 (0.0-15.0) % Eos % (Auto) 1.7 (0.0-7.0) % Baso % (Auto) 0.0 (0.0-1.5) % Neut # (Auto) 2.6 (1.4-5.7) K/uL Lymph # (Auto) 1.5 (0.6-2.4) K/uL Mathews # (Auto) 0.6 (0.0-0.8) K/uL Eos # (Auto) 0.1 (0.0-0.7) K/uL Baso # (Auto) 0.0 (0.0-0.1) K/uL Nucleated RBC % 0.0 /100WBC Nucleated RBCs # 0 K/uL Sodium 138 (136-148) mmol/L Potassium 3.4 L (3.5-5.1) mmol/L Chloride 101 (98-107) mmol/L Carbon Dioxide 28.4 (21.0-32.0) mmol/L BUN 16 (7.0-18.0) mg/dL Creatinine 1.1 (0.8-1.3) mg/dL Est Cr Clr Drug Dosing 58.73 mL/min Estimated GFR (MDRD) > 60.0 ml/min Glucose 104 (74-106) mg/dL Calcium 9.0 (8.5-10.1) mg/dL Total Bilirubin 0.5 (0.2-1.0) mg/dL AST 15 (15-37) IU/L ALT 13 L (14-63) IU/L Alkaline Phosphatase 79 (46-116) U/L Troponin I < 0.050 (0.000-0.056) ng/mL Total Protein 7.6 (6.4-8.2) g/dL Albumin 4.0 (3.4-5.0) g/dL Globulin 3.6 (2.6-4.0) g/dL Albumin/Globulin Ratio 1.1 (0.9-1.6) Influenza Type A RNA NEGATIVE (NEGATIVE) Influenza Type B RNA NEGATIVE (NEGATIVE) SARS-CoV-2 RNA (WENDY) NEGATIVE (NEGATIVE) Result Diagrams: 04/19/20 13:40 04/19/20 13:40 Sepsis Event Note - Evaluation Sepsis Screening Result: No Definite Risk - Focused Exam Vital Signs: Vital Signs Temp Pulse Resp BP Pulse Ox 04/19/20 16:13 65 123/76 93 L 04/19/20 15:58 72 117/76 92 L 04/19/20 15:28 65 136/80 92 L 04/19/20 14:44 69 144/78 H 91 L 04/19/20 14:14 66 133/84 93 L 04/19/20 13:32 98.0 F 75 17 164/104 H 98 Problem List Initiated/Reviewed/Updated: Yes Orders Last 24hrs: Active Orders 24 hr Category Date Time Status Patient Status [ADT] Routine ADT 04/19/20 15:08 Active Blood Glucose Check, Bedside [RC] TIDAC Care 04/19/20 16:38 Ordered Blood Glucose Check, Bedside [RC] TIDMEALS Care 04/19/20 16:38 Ordered EKG Documentation Completion [RC] STAT Care 04/19/20 13:24 Active Oxygen Therapy [RC] PRN Care 04/19/20 16:38 Ordered Telemetry Monitoring [Cardiac Monitoring] [RC] . Care 04/19/20 16:46 Ordered DIRECTED Up With Assistance [RC] ASDIRECTED Care 04/19/20 16:38 Ordered VTE/DVT Education [RC] PER UNIT ROUTINE Care 04/19/20 16:38 Ordered Vital Signs [RC] Q4H Care 04/19/20 16:38 Ordered [employer] Diet [DIET] Diet 04/19/20 Dinner Ordered Heart Healthy Diet [DIET] Diet 04/19/20 Dinner Ordered CBC WITH AUTO DIFF [HEME] AM Lab 04/20/20 05:11 Ordered COMPREHENSIVE METABOLIC PN,CMP [CHEM] AM Lab 04/20/20 05:11 Ordered TROPONIN I [CHEM] Timed Lab 04/19/20 18:00 Ordered TROPONIN I [CHEM] Timed Lab 04/19/20 23:55 Ordered Acetaminophen [TylenoL] Med 04/19/20 16:38 Ordered 650 mg PO Q4H PRN Aspirin [Halfprin] Med 04/20/20 09:00 Ordered 81 mg PO DAILY Clopidogrel [Plavix] Med 04/20/20 09:00 Ordered 75 mg PO DAILY Dextrose 50% in Water Med 04/19/20 16:38 Ordered 50 ml IV ASDIRECTED PRN Isosorbide Mononitrate [Isosorbide Mononitrate] Med 04/19/20 21:00 Ordered 10 mg PO BID Morphine Med 04/19/20 16:38 Ordered 2 mg IVPUSH Q4H PRN Nitroglycerin [Nitrostat] Med 04/19/20 16:47 Ordered 0.4 mg SL Q5M PRN Ondansetron [Zofran] Med 04/19/20 16:38 Ordered 4 mg IVPUSH Q4H PRN PARoxetine [Paxil] Med 04/19/20 21:00 Ordered 20 mg PO BEDTIME Pantoprazole [ProTONIX IV] Med 04/19/20 16:45 Ordered 40 mg IV Q24H Pravastatin [Pravachol] Med 04/19/20 21:00 Ordered 40 mg PO BEDTIME Ranolazine [Ranexa] Med 04/19/20 21:00 Ordered 500 mg PO BID Sildenafil Citrate Med 04/19/20 16:47 Ordered 25 mg PO ASDIRECTED PRN Sodium Chloride 0.9% [Saline Flush] Med 04/19/20 13:24 Active 10 ml FLUSH ASDIRECTED PRN Sodium Chloride 0.9% [Saline Flush] Med 04/19/20 13:24 Active 2.5 ml FLUSH ASDIRECTED PRN carvediloL [Coreg] Med 04/19/20 17:00 Ordered 3.125 mg PO BIDMEALS levETIRAcetam [Levetiracetam] Med 04/19/20 21:00 Ordered 500 mg PO BID Saline Lock Insert [OM.PC] Stat Oth 04/19/20 13:24 Ordered Resuscitation Status Routine Resus Stat 04/19/20 16:38 Ordered Medication Orders Acetaminophen (Tylenol) 650 mg PO Q4H PRN PRN Reason: Pain (Mild 1-3)/fever Aspirin (Halfprin) 81 mg PO DAILY [facility] Carvedilol (Coreg) 3.125 mg PO BIDMEALS [facility] Clopidogrel Bisulfate (Plavix) 75 mg PO DAILY [facility] Dextrose/Water (Dextrose 50% In Water) 50 ml IV ASDIRECTED PRN PRN Reason: Hypoglycemia Morphine Sulfate (Morphine) 2 mg IVPUSH Q4H PRN PRN Reason: Pain (severe 7-10) Stop: 04/20/20 16:40 Nitroglycerin (Nitrostat) 0.4 mg SL Q5M PRN PRN Reason: Chest Pain Non-Formulary Medication (Isosorbide Mononitrate [Isosorbide Mononitrate]) 10 mg PO BID [facility] Non-Formulary Medication (Levetiracetam [Levetiracetam]) 500 mg PO BID [facility] Non-Formulary Medication (Sildenafil Citrate) 25 mg PO ASDIRECTED PRN PRN Reason: Other Ondansetron HCl (Zofran) 4 mg IVPUSH Q4H PRN PRN Reason: Nausea/Vomiting Pantoprazole Sodium (Protonix Iv) 40 mg IV Q24H [facility] Paroxetine HCl (Paxil) 20 mg PO BEDTIME [facility] Pravastatin Sodium (Pravachol) 40 mg PO BEDTIME [facility] Ranolazine (Ranexa) 500 mg PO BID [facility] Sodium Chloride (Saline Flush) 10 ml FLUSH ASDIRECTED PRN PRN Reason: Keep Vein Open Last Admin: 04/19/20 13:48 Dose: 10 ml Documented by: ABRIL Sodium Chloride (Saline Flush) 2.5 ml FLUSH ASDIRECTED PRN PRN Reason: Keep Vein Open Last Admin: 04/19/20 13:48 Dose: 2.5 ml Documented by: ABRIL Assessment/Plan Comment:: 74-year-old gentleman with significant past medical history for coronary artery disease, MO, 3xstents hypertension, hyperlipidemia admitted for chest pain. 1. ACS rule out: Negative troponins, trend every 6 hours total 3 times, EKG normal, chest x-ray unremarkable Telemetry Cardiac diet Morphine 2 mg every 4 hours pain as needed Tylenol every 4 hours for pain as needed Zofran 4 g every 4 hours for nausea as needed Admit under observation 2. Past medical history: Coronary artery disease, 3 x stents post MO on anticoagulation, hypertension and hyperlipidemia; resumed all home medications. DVT prophylaxis patient is already on aspirin and Plavix, GI prophylaxis pantoprazole 40 g IV every 24 hours, activity up with assistance, cardiac diet
[2020-04-19] MEDS ORDERED: Insulin Aspart 100 Units/ML 3 ML Pen SUBCUT SCH (17:00)
[2020-04-19] MEDS: Carvedilol 3.125 MG Tab PO SCH (18:47)
[2020-04-19] MEDS ORDERED: Morphine 2 MG/ML SYRINGE IVPUSH PRN (19:14)
[2020-04-19] MEDS ORDERED: ISOSORBIDE MONONITRATE 10 MG PO SCH (21:00)
[2020-04-19] MEDS ORDERED: PARoxetine 20 MG Tab PO SCH (21:00)
[2020-04-19] MEDS ORDERED: Pravastatin 40 MG Tab PO SCH (21:00)
[2020-04-19] MEDS ORDERED: levETIRAcetam 500 MG Tab PO SCH (21:39)
[2020-04-19] MEDS: LEVETIRACETAM 500 MG PO SCH ×2 (22:33→23:26)
[2020-04-20 06:35] LABS: BLOOD UREA NITROGEN,BUN 15 mg/dL (7.0-18.0); CARBON DIOXIDE,CO2 30.2 mmol/L (21.0-32.0); CHLORIDE,CL 102 mmol/L (98-107); GLUCOSE RANDOM 104 mg/dL (74-106); SODIUM,NA 140 mmol/L (136-148)
[2020-04-20 07:30] VITALS: BP 131/77; PULSE 64
[2020-04-20] MEDS: Carvedilol 3.125 MG Tab PO SCH (07:38)
[2020-04-20] MEDS ORDERED: Potassium Chloride 20 MEQ Tab.ER PO ONE (08:40)
--- NOTE | 2020-04-20 08:44 | PCM.DCSUM1 ---
Discharge Summary - Hospital Course Brief History: 74-year-old male with a past medical history of coronary artery disease, VT with 3 times stent placement, hypertension, hyperlipidemia. Comes in with complains of left-sided chest pain described as 8 out of 10 on the pain scale described as being sharp and nonpleuritic in nature. States it did not radiate anywhere. Says it is for she is noted last night and again this morning. Denies any associated shortness of breath, palpations, nausea, vomiting, diaphoresis. Says a previous VT felt much like this. States he is compliant with his home medications and had an aspirin this morning. Furthermore denied any fever, chills, cough, GI or symptoms, leg swelling, leg pain, any travel or sick contacts. Diagnosis: Stroke: No - Discharge Data Discharge Date: 04/20/20 Discharge Disposition: Home, Self-Care 01 Condition: Good - Referral to Home Health Primary Care Physician: Bo Lopez MD - Patient Summary/Data Hospital Course: Patient was admitted with left-sided chest pain, worked up for ACS, pain subsided after receiving morphine last night, did not request pain medication again. All studies such as EKG, telemetry, troponin were unremarkable. Patient will be set up with stress test with Dr. Fay in cardiology. - Patient Instructions Diet: Heart Healthy Diet Activity: As Tolerated Showering/Bathing: May Shower Notify Provider of: Fever, Increased Pain, Swelling and Redness, Drainage, Nausea and/or Vomiting Other/Special Instructions: Please return to the hospital in the event you experience chest pain, shortness of breath, palpitations, dizziness, abnormal sweating. - Discharge Plan *PRESCRIPTION DRUG MONITORING PROGRAM REVIEWED*: Not Applicable *COPY OF PRESCRIPTION DRUG MONITORING REPORT IN PATIENT SWEETIE: Not Applicable Home Medications: Home Meds Pantoprazole [ProTONIX] 40 mg PO BEDTIME 09/22/16 [History] Pravastatin [Pravachol] 40 mg PO BEDTIME 09/22/16 [History] Clopidogrel [Plavix] 75 mg PO DAILY 04/19/17 [History] PARoxetine [Paxil] 20 mg PO BEDTIME 04/19/17 [History] Aspirin [Halfprin] 81 mg PO DAILY #0 tab.ec 04/20/17 [Rx] Nitroglycerin [Nitrostat] 0.4 mg SL Q5M PRN MDD 3 11/20/18 [History] Ranolazine [Ranexa] 500 mg PO BID 01/14/19 [History] levETIRAcetam [Levetiracetam] 500 mg PO BID 01/14/19 [History] Isosorbide Mononitrate 10 mg PO BID 04/19/20 [History] Sildenafil Citrate 25 mg PO ASDIRECTED PRN 04/19/20 [History] carvediloL [Carvedilol] 3.125 mg PO BIDMEALS 04/19/20 [History] Acetaminophen [Tylenol] 650 mg PO Q4H PRN tablet 04/20/20 [Rx] Oxygen Therapy Mode: Room Air Forms: ED Department Discharge Referrals: Bo Lopez MD [Primary Care Provider] - Vernell Donovan MD [Physician] - - Discharge Summary/Plan Comment DC Time >30 min.: No Discharge Summary/Plan Comment: Patient was admitted for ACS rule out, left-sided chest pain subsided, patient is to follow-up with cardiology as an outpatient and have stress test completed. Furthermore patient should closely follow-up with his PCP within 1 to 2 weeks. - Patient Data Vitals - Most Recent: Last Vital Signs Temp 97.5 F 04/20/20 07:28 Pulse 64 04/20/20 07:38 Resp 16 04/20/20 07:28 BP 131/77 04/20/20 07:38 Pulse Ox 94 L 04/20/20 07:28 Weight - Most Recent: 156 lb 8.451 oz I&O - Last 24 hours: Intake & Output 04/19/20 04/20/20 04/20/20 22:59 06:59 14:59 Intake Total 350 Output Total 0 Balance 350 Lab Results - Last 24 hrs: Laboratory Results - last 24 hr 04/19/20 04/19/20 04/19/20 Range/Units 13:40 13:40 15:15 WBC 4.76 (4.0-11.0) K/uL RBC 4.62 (4.50-5.90) M/uL Hgb 12.9 L (13.0-17.0) g/dL Hct 40.2 (38.0-50.0) % MCV 87.0 (80.0-98.0) fL MCH 27.9 (27.0-32.0) pg MCHC 32.1 (31.0-37.0) g/dL RDW Std Deviation 46.8 (28.0-62.0) fl RDW Coeff of Ethan 15 (11.0-15.0) % Plt Count 261 (150-400) K/uL MPV 9.70 (7.40-12.00) fL Neut % (Auto) 54.0 (48.0-80.0) % Lymph % (Auto) 31.1 (16.0-40.0) % Troup % (Auto) 13.2 (0.0-15.0) % Eos % (Auto) 1.7 (0.0-7.0) % Baso % (Auto) 0.0 (0.0-1.5) % Neut # (Auto) 2.6 (1.4-5.7) K/uL Lymph # (Auto) 1.5 (0.6-2.4) K/uL Troup # (Auto) 0.6 (0.0-0.8) K/uL Eos # (Auto) 0.1 (0.0-0.7) K/uL Baso # (Auto) 0.0 (0.0-0.1) K/uL Nucleated RBC % 0.0 /100WBC Nucleated RBCs # 0 K/uL Sodium 138 (136-148) mmol/L Potassium 3.4 L (3.5-5.1) mmol/L Chloride 101 (98-107) mmol/L Carbon Dioxide 28.4 (21.0-32.0) mmol/L BUN 16 (7.0-18.0) mg/dL Creatinine 1.1 (0.8-1.3) mg/dL Est Cr Clr Drug Dosing 58.73 mL/min Estimated GFR (MDRD) > 60.0 ml/min Glucose 104 (74-106) mg/dL Calcium 9.0 (8.5-10.1) mg/dL Total Bilirubin 0.5 (0.2-1.0) mg/dL AST 15 (15-37) IU/L ALT 13 L (14-63) IU/L Alkaline Phosphatase 79 (46-116) U/L Troponin I < 0.050 (0.000-0.056) ng/mL Total Protein 7.6 (6.4-8.2) g/dL Albumin 4.0 (3.4-5.0) g/dL Globulin 3.6 (2.6-4.0) g/dL Albumin/Globulin Ratio 1.1 (0.9-1.6) Influenza Type A RNA NEGATIVE (NEGATIVE) Influenza Type B RNA NEGATIVE (NEGATIVE) SARS-CoV-2 RNA (WENDY) NEGATIVE (NEGATIVE) 04/19/20 04/19/20 04/20/20 Range/Units 18:23 23:50 05:55 WBC 3.71 L (4.0-11.0) K/uL RBC 4.29 L (4.50-5.90) M/uL Hgb 12.0 L (13.0-17.0) g/dL Hct 37.6 L (38.0-50.0) % MCV 87.6 (80.0-98.0) fL MCH 28.0 (27.0-32.0) pg MCHC 31.9 (31.0-37.0) g/dL RDW Std Deviation 46.9 (28.0-62.0) fl RDW Coeff of Ethan 15 (11.0-15.0) % Plt Count 208 (150-400) K/uL MPV 10.00 (7.40-12.00) fL Neut % (Auto) 45.3 L (48.0-80.0) % Lymph % (Auto) 38.5 (16.0-40.0) % Troup % (Auto) 12.4 (0.0-15.0) % Eos % (Auto) 3.5 (0.0-7.0) % Baso % (Auto) 0.3 (0.0-1.5) % Neut # (Auto) 1.7 (1.4-5.7) K/uL Lymph # (Auto) 1.4 (0.6-2.4) K/uL Troup # (Auto) 0.5 (0.0-0.8) K/uL Eos # (Auto) 0.1 (0.0-0.7) K/uL Baso # (Auto) 0.0 (0.0-0.1) K/uL Nucleated RBC % 0.0 /100WBC Nucleated RBCs # 0 K/uL Sodium (136-148) mmol/L Potassium (3.5-5.1) mmol/L Chloride (98-107) mmol/L Carbon Dioxide (21.0-32.0) mmol/L BUN (7.0-18.0) mg/dL Creatinine (0.8-1.3) mg/dL Est Cr Clr Drug Dosing mL/min Estimated GFR (MDRD) ml/min Glucose (74-106) mg/dL Calcium (8.5-10.1) mg/dL Total Bilirubin (0.2-1.0) mg/dL AST (15-37) IU/L ALT (14-63) IU/L Alkaline Phosphatase (46-116) U/L Troponin I < 0.050 < 0.050 (0.000-0.056) ng/mL Total Protein (6.4-8.2) g/dL Albumin (3.4-5.0) g/dL Globulin (2.6-4.0) g/dL Albumin/Globulin Ratio (0.9-1.6) Influenza Type A RNA (NEGATIVE) Influenza Type B RNA (NEGATIVE) SARS-CoV-2 RNA (WENDY) (NEGATIVE) 04/20/20 Range/Units 05:55 WBC (4.0-11.0) K/uL RBC (4.50-5.90) M/uL Hgb (13.0-17.0) g/dL Hct (38.0-50.0) % MCV (80.0-98.0) fL MCH (27.0-32.0) pg MCHC (31.0-37.0) g/dL RDW Std Deviation (28.0-62.0) fl RDW Coeff of Ethan (11.0-15.0) % Plt Count (150-400) K/uL MPV (7.40-12.00) fL Neut % (Auto) (48.0-80.0) % Lymph % (Auto) (16.0-40.0) % Troup % (Auto) (0.0-15.0) % Eos % (Auto) (0.0-7.0) % Baso % (Auto) (0.0-1.5) % Neut # (Auto) (1.4-5.7) K/uL Lymph # (Auto) (0.6-2.4) K/uL Troup # (Auto) (0.0-0.8) K/uL Eos # (Auto) (0.0-0.7) K/uL Baso # (Auto) (0.0-0.1) K/uL Nucleated RBC % /100WBC Nucleated RBCs # K/uL Sodium 140 (136-148) mmol/L Potassium 3.0 L (3.5-5.1) mmol/L Chloride 102 (98-107) mmol/L Carbon Dioxide 30.2 (21.0-32.0) mmol/L BUN 15 (7.0-18.0) mg/dL Creatinine 1.0 (0.8-1.3) mg/dL Est Cr Clr Drug Dosing 62.43 mL/min Estimated GFR (MDRD) > 60.0 ml/min Glucose 104 (74-106) mg/dL Calcium 8.7 (8.5-10.1) mg/dL Total Bilirubin 0.6 (0.2-1.0) mg/dL AST 13 L (15-37) IU/L ALT 13 L (14-63) IU/L Alkaline Phosphatase 66 (46-116) U/L Troponin I (0.000-0.056) ng/mL Total Protein 6.6 (6.4-8.2) g/dL Albumin 3.3 L (3.4-5.0) g/dL Globulin 3.3 (2.6-4.0) g/dL Albumin/Globulin Ratio 1.0 (0.9-1.6) Influenza Type A RNA (NEGATIVE) Influenza Type B RNA (NEGATIVE) SARS-CoV-2 RNA (WENDY) (NEGATIVE) Med Orders - Current: Current Medications Acetaminophen (Tylenol) 650 mg PO Q4H PRN PRN Reason: Pain (Mild 1-3)/fever Aspirin (Halfprin) 81 mg PO DAILY [facility] Carvedilol (Coreg) 3.125 mg PO BIDMEALS [facility] Last Admin: 04/20/20 07:38 Dose: 3.125 mg Documented by: Clopidogrel Bisulfate (Plavix) 75 mg PO DAILY [facility] Dextrose/Water (Dextrose 50% In Water) 50 ml IV ASDIRECTED PRN PRN Reason: Hypoglycemia Pantoprazole Sodium 40 mg/ (Sodium Chloride) 10 mls @ 200 mls/hr IV Q24H [facility] Levetiracetam (Keppra) 500 mg PO BID [facility] Morphine Sulfate (Morphine) 2 mg IVPUSH Q4H PRN PRN Reason: Pain (severe 7-10) Nitroglycerin (Nitrostat) 0.4 mg SL Q5M PRN PRN Reason: Chest Pain Ondansetron HCl (Zofran) 4 mg IVPUSH Q4H PRN PRN Reason: Nausea/Vomiting Paroxetine HCl (Paxil) 20 mg PO BEDTIME [facility] Last Admin: 04/19/20 21:25 Dose: 20 mg Documented by: Isosorbide (Mononitrate 10 Mg) 1 each PO BID [facility] Pravastatin Sodium (Pravachol) 40 mg PO BEDTIME [facility] Last Admin: 04/19/20 21:24 Dose: 40 mg Documented by: Ranolazine (Ranexa) 500 mg PO BID [facility] Last Admin: 04/19/20 21:24 Dose: 500 mg Documented by: Sodium Chloride (Saline Flush) 10 ml FLUSH ASDIRECTED PRN PRN Reason: Keep Vein Open Last Admin: 04/19/20 18:35 Dose: 10 ml Documented by: Sodium Chloride (Saline Flush) 2.5 ml FLUSH ASDIRECTED PRN PRN Reason: Keep Vein Open Last Admin: 04/19/20 13:48 Dose: 2.5 ml Documented by: Discontinued Medications Enoxaparin Sodium (Lovenox) 40 mg SUBCUT Q24H [facility] Last Admin: 04/19/20 18:06 Dose: Not Given Documented by: Glucagon (Glucagen) 1 mg IM ASDIRECTED PRN PRN Reason: Hypoglycemia Insulin Aspart (Novolog) 0 unit SUBCUT TIDAC [facility]; Protocol Morphine Sulfate (Morphine) 4 mg IVPUSH ONETIME ONE Stop: 04/19/20 14:06 Last Admin: 04/19/20 14:35 Dose: 4 mg Documented by: Morphine Sulfate (Morphine) 2 mg IVPUSH Q4H PRN PRN Reason: Pain (severe 7-10) Stop: 04/20/20 16:40 Last Admin: 04/19/20 18:49 Dose: 2 mg Documented by: Non-Formulary Medication (Isosorbide Mononitrate [Isosorbide Mononitrate]) 10 mg PO BID [facility] Last Admin: 04/19/20 22:33 Dose: Not Given Documented by: Non-Formulary Medication (Levetiracetam [Levetiracetam]) 500 mg PO BID [facility] Last Admin: 04/19/20 23:26 Dose: 500 mg Documented by: Pantoprazole Sodium (Protonix Iv) 40 mg IV Q24H [facility] Last Admin: 04/19/20 18:34 Dose: 40 mg Documented by: Potassium Chloride (Klor-Con M20) 60 meq PO ONETIME ONE Stop: 04/20/20 08:41
[2020-04-20] MEDS ORDERED: Aspirin 81 MG Tab.EC PO SCH (09:00)
[2020-04-20] MEDS ORDERED: Clopidogrel 75 MG Tab PO SCH (09:00)
[2020-04-20] MEDS ORDERED: Pantoprazole 40 MG in Sodium Chloride 0.9% 10 ML IV SCH (18:30)
== END 2020-04-20 12:20 | disposition home or self-care (01) ==
LOC: MW.ED 13:22 → MW.MS 15:08
PROVIDERS: ADMIT Internal Medicine; ATTEND Internal Medicine
DX: R07.9 Chest pain, unspecified (principal); I25.10 Atherosclerotic heart disease of native coronary artery without angina pectoris; I25.2 Old myocardial infarction; I10 Essential (primary) hypertension; E78.00 Pure hypercholesterolemia, unspecified; F41.9 Anxiety disorder, unspecified; F32.9 Major depressive disorder, single episode, unspecified; E11.9 Type 2 diabetes mellitus without complications; Z20.822 Contact with and (suspected) exposure to COVID-19; Z95.5 Presence of coronary angioplasty implant and graft; Z79.899 Other long term (current) drug therapy; Z79.82 Long term (current) use of aspirin
CPT/HCPCS: 0240U; 36415; 71045; 80053; 84484; 85025; 93005; 96374; 96375; 96376; 99285; A9270; C9113; G0378; J2270; 93010; 99283

== ENCOUNTER 2020-06-29 16:19 | Emergency (ER) | payer MEDICARE ==
[2020-06-29] MEDS ORDERED: Ketorolac 30 MG/ML SDV IVPUSH ONE (16:37)
--- NOTE | 2020-06-29 16:41 | EDM.PDOC ---
ED HPI GENERAL MEDICAL PROBLEM - General Chief Complaint: Head Injury Stated Complaint: FALL Time Seen by Provider: 06/29/20 16:23 - History of Present Illness INITIAL COMMENTS - FREE TEXT/NARRATIVE: History of present illness: The patient fell down multiple steps. He was at the top of the steps when he missed a step and says he rolled down several steps. The patient complains of pain in his low back. Patient has no neurologic deficit. He did not lose consciousness. Patient has severe pain in his head neck and low back. [] Review of systems: As per history of present illness and below otherwise all systems reviewed and negative. Past medical history: As per history of present illness and as reviewed below otherwise noncontributory. Surgical history: As per history of present illness and as reviewed below otherwise noncontributory. Social history: No reported history of drug or alcohol abuse. Family history: As per history of present illness and as reviewed below otherwise noncontributory. Physical exam: Constitutional - well developed, well-nourished and in no acute distress HEENT -all are in place. Normocephalic, no evidence of trauma - external nose and mouth normal - no mass in neck and no JVD - mucosae moist EYES - full EOM, PERRL, no icterus - no evidence of inflammation, injection, or drainage Respiratory - no respiratory distress, equal bilateral expansion, lungs clear to auscultation and no abnormal lung sounds Cardiovascular - Regular Rhythm with S1 and S2 appreciated and no murmur, gallop or rub. GI - abdomen soft without distension or organomegaly - normal bowel sounds - no guard or rebound Musculoskeletal there are tenderness in the low back without step-off. The tenderness is in the midline in the musculature feels normal. No gross deformity of long bones or joints - no tenderness, swelling or edema Neurologic - Alert and oriented times four - CN II-XII grossly intact - motor sensory and coordination symmetrically normal Psychiatric - appropriate mood and affect with normal thought content Hematologic - No petechiae or purpura - mucosa appropriate color and sclera not pale - normal nail bed color and refill Integument - no rash or evidence of trauma - normal turgor Diagnostics: [] Therapeutics: [] Impression: [] Plan: [] Definitive disposition and diagnosis as appropriate pending reevaluation and review of above. Lower Back Pain Score (Numeric/FACES): 10 - Related Data Allergies Allergy/AdvReac Type Severity Reaction Status Date / Time No Known Allergies Allergy Verified 06/29/20 16:28 Home Meds: Home Meds Pantoprazole [ProTONIX] 40 mg PO BEDTIME 09/22/16 [History] Pravastatin [Pravachol] 40 mg PO BEDTIME 09/22/16 [History] Clopidogrel [Plavix] 75 mg PO DAILY 04/19/17 [History] PARoxetine [Paxil] 20 mg PO BEDTIME 04/19/17 [History] Aspirin [Halfprin] 81 mg PO DAILY #0 tab.ec 04/20/17 [Rx] Nitroglycerin [Nitrostat] 0.4 mg SL Q5M PRN MDD 3 03/07/18 [History] Ranolazine [Ranexa] 500 mg PO BID 01/14/19 [History] levETIRAcetam [Levetiracetam] 500 mg PO BID 01/14/19 [History] Isosorbide Mononitrate 10 mg PO BID 04/19/20 [History] Sildenafil Citrate 25 mg PO ASDIRECTED PRN 04/19/20 [History] carvediloL [Carvedilol] 3.125 mg PO BIDMEALS 04/19/20 [History] Acetaminophen [Tylenol] 650 mg PO Q4H PRN tablet 04/20/20 [Rx] Past Medical History - Past Health History Medical/Surgical History: Denies Medical/Surgical History HEENT History: Reports: Other (See Below) Other HEENT History: uses reading glasses Cardiovascular History: Reports: CAD, High Cholesterol, Hypertension, NM, Stents, Other (See Below) Other Cardiovascular History: NM in 2009 Respiratory History: Reports: None Gastrointestinal History: Reports: None Genitourinary History: Reports: None Musculoskeletal History: Reports: None Other Musculoskeletal History: has arthritis in back Neurological History: Reports: Vertigo, Other (See Below) Other Neuro History: hx of Claustrophobia Psychiatric History: Reports: Anxiety, Depression, Other (See Below) Other Psychiatric History: Claustrophobia 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, Type II Insulin Pump Model and Marketing Proposal Coordinator: None Hematologic History: Reports: Anticoagulation Therapy Immunologic History: Reports: None Oncologic (Cancer) History: Reports: None Dermatologic History: Reports: None - Infectious Disease History Infectious Disease History: Reports: Chicken Pox, Measles, Mumps - Past Surgical History Head Surgeries/Procedures: Reports: None HEENT Surgical History: Reports: Oral Surgery, Tonsillectomy, Other (See Below) Other HEENT Surgeries/Procedures: dental extractions, enlarged lymph nodes removed from neck Cardiovascular Surgical History: Reports: Coronary Artery Stent Other Cardiovascular Surgeries/Procedures: Stents x3 Respiratory Surgical History: Reports: None GI Surgical History: Reports: Appendectomy Male Surgical History: Reports: None Endocrine Surgical History: Reports: None Musculoskeletal Surgical History: Reports: None Oncologic Surgical History: Reports: None Dermatological Surgical History: Reports: None Social & Family History - Family History Family Medical History: No Pertinent Family History Cardiac: Reports: NM Respiratory: Reports: None Endocrine/Metabolic: Reports: Diabetes, Type I Hematologic: Reports: None Oncologic: Reports: Other (See Below) Other Oncologic Family History: Father side has cancer but patient doesn't know exactly what kind of CA - Tobacco Use Tobacco Use Status *Q: Never Tobacco User - Caffeine Use Caffeine Use: Reports: None Other Caffeine Use: decaf Caffeine Use Comment: daily - Recreational Drug Use Recreational Drug Use: No - Living Situation & Occupation Living situation: Reports: Occupation: Retired ED ROS GENERAL - Review of Systems Review Of Systems: Comprehensive ROS is negative, except as noted in HPI. ED EXAM, HEAD INJURY - Physical Exam Exam: See Below Text/Narrative:: My physical exam is in the HPI Course - Vital Signs Text/Narrative:: Repeat head to toe survey reveals no other evidence of injury. CT reported. Patient ambulatory and able to urinate. Last Recorded V/S: Last Vital Signs Temp 36.8 C 06/29/20 16:30 Pulse 77 06/29/20 17:54 Resp 20 06/29/20 16:30 BP 146/73 H 06/29/20 17:54 Pulse Ox 93 L 06/29/20 17:54 - Orders/Labs/Meds Labs: Laboratory Tests 06/29/20 06/29/20 Range/Units 16:24 16:24 WBC 4.07 (4.0-11.0) K/uL RBC 4.19 L (4.50-5.90) M/uL Hgb 11.9 L (13.0-17.0) g/dL Hct 36.4 L (38.0-50.0) % MCV 86.9 (80.0-98.0) fL MCH 28.4 (27.0-32.0) pg MCHC 32.7 (31.0-37.0) g/dL RDW Std Deviation 48.7 (28.0-62.0) fl RDW Coeff of Ethan 15 (11.0-15.0) % Plt Count 220 (150-400) K/uL MPV 9.90 (7.40-12.00) fL Neut % (Auto) 53.1 (48.0-80.0) % Lymph % (Auto) 31.2 (16.0-40.0) % [place] % (Auto) 13.3 (0.0-15.0) % Eos % (Auto) 2.2 (0.0-7.0) % Baso % (Auto) 0.2 (0.0-1.5) % Neut # (Auto) 2.2 (1.4-5.7) K/uL Lymph # (Auto) 1.3 (0.6-2.4) K/uL [place] # (Auto) 0.5 (0.0-0.8) K/uL Eos # (Auto) 0.1 (0.0-0.7) K/uL Baso # (Auto) 0.0 (0.0-0.1) K/uL Nucleated RBC % 0.0 /100WBC Nucleated RBCs # 0 K/uL Sodium 143 (136-148) mmol/L Potassium 4.0 (3.5-5.1) mmol/L Chloride 105 (98-107) mmol/L Carbon Dioxide 27.9 (21.0-32.0) mmol/L BUN 24 H (7.0-18.0) mg/dL Creatinine 1.0 (0.8-1.3) mg/dL Est Cr Clr Drug Dosing 61.51 mL/min Estimated GFR (MDRD) > 60.0 ml/min Glucose 147 H (74-106) mg/dL Calcium 8.5 (8.5-10.1) mg/dL Meds: Medications Discontinued Medications Generic Name Dose Route Start Last Admin Trade Name Freq PRN Reason Stop Dose Admin Ketorolac Tromethamine 15 mg 06/29/20 16:37 06/29/20 17:12 Ketorolac 30 Mg/Ml Sdv IVPUSH 06/29/20 16:38 15 mg ONETIME ONE Administration Departure - Departure Time of Disposition: 18:31 Disposition: Home, Self-Care 01 Condition: Good Clinical Impression: Fall down steps - Discharge Information Instructions: Fall Prevention in the Home, Adult Forms: ED Department Discharge Additional Instructions: [facility] [address] [place] [address] [facility] [address] [place] [id number] The following information is given to patients seen in the emergency department who are being discharged to home. This information is to outline your options for follow-up care. We provide all patients seen in our emergency department wi th a follow-up referral. The need for follow-up, as well as the timing and circumstances, are variable depending upon the specifics of your emergency department visit. If you don't have a primary care physician on staff, we will provide you with a referral. We always advise you to contact your personal physician following an emergency department visit to inform them of the circumstance of the visit and for follow-up with them and/or the need for any referrals to a consulting specialist. The emergency department will also refer you to a specialist when appropriate. This referral assures that you have the opportunity for follow-up care with a specialist. All of these measure are taken in an effort to provide you with optimal care, which includes your follow-up. Under all circumstances we always encourage you to contact your private physician who remains a resource for coordinating your care. When calling for follow-up care, please make the office aware that this follow-up is from your recent emergency room visit. If for any reason you are refused follow-up, please contact the [facility] Emergency Department at and asked to speak to the emergency department charge nurse. Sepsis Event Note (ED) - Evaluation Sepsis Screening Result: No Definite Risk - Focused Exam Vital Signs: Vital Signs Temp Pulse Resp BP Pulse Ox 06/29/20 17:54 77 146/73 H 93 L 06/29/20 17:39 77 146/84 H 94 L 06/29/20 17:24 81 147/83 H 94 L 06/29/20 17:09 81 143/83 H 96 06/29/20 16:39 91 139/90 06/29/20 16:30 36.8 C 91 20 149/83 H 96
[2020-06-29 16:57] LABS: BLOOD UREA NITROGEN,BUN 24 mg/dL (7.0-18.0); CARBON DIOXIDE,CO2 27.9 mmol/L (21.0-32.0); CHLORIDE,CL 105 mmol/L (98-107); GLUCOSE RANDOM 147 mg/dL (74-106); SODIUM,NA 143 mmol/L (136-148)
--- NOTE | 2020-06-29 17:41 | CT ---
INDICATION: Pt fell down the stairs today. COMPARISON: 07/17/2019 TECHNIQUE: A CT volumetric acquisition was performed of the brain without IV contrast. Please note that all CT scans at this facility use dose modulation, iterative reconstruction, and/or weight-based dosing when appropriate to reduce radiation dose to as low as reasonably achievable. FINDINGS: No intracranial hemorrhage, mass or mass effect. [place]-white differentiation maintained. No hydrocephalus or extra-axial fluid. No fracture. Sinuses clear. IMPRESSION: No acute intracranial pathology. Please note that all CT scans at this facility use dose modulation, iterative reconstruction, and/or weight-based dosing when appropriate to reduce radiation dose to as low as reasonably achievable. Dictated by Adrien Garcia MD @ Jun 29 2020 5:36PM Signed by Dr. Adrien Garcia @ Jun 29 2020 5:38PM
--- NOTE | 2020-06-29 17:43 | CR ---
INDICATION: Pt fell down the stairs today. TECHNIQUE: AP pelvis. COMPARISON: 05/04/2018 FINDINGS: Degenerative spurring at both hips. Chronic mixed density appearance of the right posterior ischial tuberosity and upper sacrum. No pathologic fracture. Pubic rami intact. IMPRESSION: No acute fracture. Degenerative joint disease. Chronic lesion involving the right posterior iliac bone and upper sacrum, possibly representing Paget`s. Dictated by Adrien Garcai MD @ Jun 29 2020 5:38PM Signed by Dr. Adrien Garcia @ Jun 29 2020 5:41PM
--- NOTE | 2020-06-29 17:47 | CT ---
Indication: Patient fell downstairs Technique: Cervical spine CT scan Comparison: No comparison Findings: Normal height and alignment of the vertebral bodies. Diffuse mild disc space narrowing and osteophytic changes. Lateral masses align normally with C2. Prevertebral soft tissues within normal limits. Impression: No acute vertebral body fracture or traumatic malalignment. Please note that all CT scans at this facility use dose modulation, iterative reconstruction, and/or weight-based dosing when appropriate to reduce radiation dose to as low as reasonably achievable. Dictated by Maci Summers MD @ Jun 29 2020 5:40PM Signed by Dr. Maci Summers @ Jun 29 2020 5:46PM
--- NOTE | 2020-06-29 17:55 | CT ---
Indication: Pt fell down the stairs today. Technique: Noncontrast CT lumbar spine Please note that all CT scans at this facility use dose modulation, iterative reconstruction, and/or weight-based dosing when appropriate to reduce radiation dose to as low as reasonably achievable. Comparison: None Findings: No compression fracture is present. There is no pars defect. Discogenic spurring throughout the lumbar spine several Schmorl`s nodes. Degenerative facet arthropathy. No spondylolisthesis. Dense vascular calcifications no retroperitoneal adenopathy. Relative decreased density throughout the upper sacrum with mixed density involving the right posterior iliac bone, likely similar two prior pelvic x-ray from May 04, 2018. Impression: No lumbar fracture. Chronic mixed density lesion in the sacrum and right posterior iliac bone possibly representing Paget`s. Please note that all CT scans at this facility use dose modulation, iterative reconstruction, and/or weight-based dosing when appropriate to reduce radiation dose to as low as reasonably achievable. Dictated by Adrien Garcia MD @ Jun 29 2020 5:44PM Signed by Dr. Adrien Garcia @ Jun 29 2020 5:55PM
--- NOTE | 2020-06-29 18:04 | CT ---
Indication: Pt fell down the stairs today. Technique: Noncontrast CT thoracic spine Please note that all CT scans at this facility use dose modulation, iterative reconstruction, and/or weight-based dosing when appropriate to reduce radiation dose to as low as reasonably achievable. Comparison: MRI March 24, 2018 Findings: No fracture. Dependent scarring both lung bases. No pleural effusion. Degenerative disc disease. No suspicious osseous lesion. No paraspinal soft tissue mass. Impression: No thoracic spine fracture. Please note that all CT scans at this facility use dose modulation, iterative reconstruction, and/or weight-based dosing when appropriate to reduce radiation dose to as low as reasonably achievable. Dictated by Adrien Garcia MD @ Jun 29 2020 5:55PM Signed by Dr. Adrien Garcia @ Jun 29 2020 6:03PM
[2020-06-29 20:10] VITALS: BP 141/81; PULSE 80
== END 2020-06-29 18:48 | disposition home or self-care (01) ==
LOC: MW.ED 16:19
DX: M54.5 Low back pain (principal); I25.10 Atherosclerotic heart disease of native coronary artery without angina pectoris; E78.00 Pure hypercholesterolemia, unspecified; I25.2 Old myocardial infarction; I10 Essential (primary) hypertension; Z95.5 Presence of coronary angioplasty implant and graft; E11.9 Type 2 diabetes mellitus without complications; Z79.82 Long term (current) use of aspirin; Z79.02 Long term (current) use of antithrombotics/antiplatelets; Z79.899 Other long term (current) drug therapy; W10.9XXA Fall (on) (from) unspecified stairs and steps, initial encounter
CPT/HCPCS: 36415; 70450; 72125; 72128; 72131; 72170; 80048; 85025; 96374; 99284; J1885; 99283

== ENCOUNTER 2020-10-23 17:16 | Observation (INO) | payer MEDICARE ==
[2020-10-23] MEDS ORDERED: Aspirin 81 MG Tab.Chew PO ONE (17:31)
--- NOTE | 2020-10-23 17:36 | EDM.PDOC ---
ED HPI GENERAL MEDICAL PROBLEM - General Chief Complaint: Chest Pain Stated Complaint: CHEST PAINS Time Seen by Provider: 10/23/20 17:31 Source of Information: Reports: Family History Limitations: Reports: Altered Mental Status, Uncooperative - History of Present Illness INITIAL COMMENTS - FREE TEXT/NARRATIVE: Patient is a 75-year-old male brought in by his today for possible chest pain. Patient states this weekend he was drinking heavily and not take any of his meds and has been complaining of chest pain for the past few weeks. Has history of having 3 stents put in the last 1 being about 2 years ago. Today continue with plan chest pain white male come in. When he arrived to the ED the nurse problem to the room the patient had an episode where he just became un responsive and then popped up and had to be placed back in bed that is brought to 3 times states that he does occasionally come to the hospital he gets anxiety and gets nervous for being here. On exam he is does move and follow some commands but does not really give much history history provided by the . chest Pain Score (Numeric/FACES): 7 - Related Data Allergies Allergy/AdvReac Type Severity Reaction Status Date / Time No Known Allergies Allergy Verified 10/24/20 04:13 Home Meds: Home Meds Pantoprazole [ProTONIX] 40 mg PO DAILY 09/22/16 [History] Pravastatin [Pravachol] 80 mg PO BEDTIME 09/22/16 [History] Clopidogrel [Plavix] 75 mg PO DAILY 04/19/17 [History] PARoxetine [Paxil] 40 mg PO BEDTIME 04/19/17 [History] Aspirin [Halfprin] 81 mg PO DAILY #0 tab.ec 04/20/17 [Rx] Nitroglycerin [Nitrostat] 0.4 mg SL Q5M PRN MDD 3 03/07/18 [History] Ranolazine [Ranexa] 500 mg PO BID 01/14/19 [History] levETIRAcetam [Levetiracetam] 500 mg PO BID 01/14/19 [History] carvediloL [Carvedilol] 3.125 mg PO BIDMEALS 04/19/20 [History] Past Medical History - Past Health History Medical/Surgical History: Denies Medical/Surgical History HEENT History: Reports: Other (See Below) Other HEENT History: uses reading glasses Cardiovascular History: Reports: CAD, High Cholesterol, Hypertension, MS, Stents, Other (See Below) Other Cardiovascular History: MS in 2010 Respiratory History: Reports: None Gastrointestinal History: Reports: None Genitourinary History: Reports: None Musculoskeletal History: Reports: None Other Musculoskeletal History: has arthritis in back Neurological History: Reports: Vertigo, Other (See Below) Other Neuro History: hx of Claustrophobia Psychiatric History: Reports: Anxiety, Depression, Other (See Below) Other Psychiatric History: Claustrophobia 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, Type II Insulin Pump Model and Store Associate: None Hematologic History: Reports: Anticoagulation Therapy Immunologic History: Reports: None Oncologic (Cancer) History: Reports: None Dermatologic History: Reports: None - Infectious Disease History Infectious Disease History: Reports: Chicken Pox, Measles, Mumps - Past Surgical History Head Surgeries/Procedures: Reports: None HEENT Surgical History: Reports: Oral Surgery, Tonsillectomy, Other (See Below) Other HEENT Surgeries/Procedures: dental extractions, enlarged lymph nodes removed from neck Cardiovascular Surgical History: Reports: Coronary Artery Stent Other Cardiovascular Surgeries/Procedures: Stents x3 Respiratory Surgical History: Reports: None GI Surgical History: Reports: Appendectomy Male Surgical History: Reports: None Endocrine Surgical History: Reports: None Musculoskeletal Surgical History: Reports: None Oncologic Surgical History: Reports: None Dermatological Surgical History: Reports: None Social & Family History - Family History Family Medical History: No Pertinent Family History Cardiac: Reports: MS Respiratory: Reports: None Endocrine/Metabolic: Reports: Diabetes, Type I Hematologic: Reports: None Oncologic: Reports: Other (See Below) Other Oncologic Family History: Father side has cancer but patient doesn't know exactly what kind of CA - Tobacco Use Tobacco Use Status *Q: Never Tobacco User Second Hand Smoke Exposure: No - Caffeine Use Caffeine Use: Reports: Coffee Other Caffeine Use: decaf Caffeine Use Comment: daily - Recreational Drug Use Recreational Drug Use: No - Living Situation & Occupation Living situation: Reports: Occupation: Retired ED ROS GENERAL - Review of Systems Review Of Systems: Unable To Obtain Reason Not Obtained: ams ED EXAM, GENERAL - Physical Exam Exam: See Below Exam Limited By: Uncooperative Eye Exam: Bilateral Eye: EOMI, PERRL Respiratory/Chest: No Respiratory Distress, Lungs Clear, Normal Breath Sounds Cardiovascular: Normal Peripheral Pulses, Regular Rate, Rhythm GI/Abdominal: Normal Bowel Sounds, Soft, Non-Tender Extremities: Normal Inspection #1 Interpretation EKG Date: 10/23/20 Time: 17:21 Rhythm: Other (sinus tach) Rate (Beats/Min): 101 ST-T: Normal Course - Vital Signs Last Recorded V/S: Last Vital Signs Temp 97.3 F 10/24/20 11:24 Pulse 72 10/24/20 11:24 Resp 14 10/24/20 11:24 BP 120/69 10/24/20 11:24 Pulse Ox 95 10/24/20 11:24 - Orders/Labs/Meds Orders: Active Orders 24 hr Category Date Time Status Patient Status [ADT] Routine ADT 10/23/20 22:00 Active Medication Orders Albuterol/Ipratropium (Albuterol/Ipratropium 3.0-0.5 Mg/3 Ml Neb Soln) 3 ml NEB Q4HRRT PRN PRN Reason: Shortness Of Breath/wheezing Carvedilol (Carvedilol 3.125 Mg Tab) 3.125 mg PO BIDMEALS [facility] Clopidogrel Bisulfate (Clopidogrel 75 Mg Tab) 75 mg PO DAILY [facility] Last Admin: 10/24/20 09:42 Dose: 75 mg Documented by: STEWMICST Cosigned by: JACKELYN Levetiracetam (Levetiracetam 500 Mg Tab) 500 mg PO BID [facility] Last Admin: 10/24/20 09:42 Dose: 500 mg Documented by: JOSE ANTONIOMICST Cosigned by: JACKELYN Morphine Sulfate (Morphine 2 Mg/Ml Syringe) 1 mg IVPUSH Q4H PRN PRN Reason: Pain Nitroglycerin (Nitroglycerin 0.4 Mg Tab.Sl) 0.4 mg SL Q5M PRN PRN Reason: Chest Pain Ondansetron HCl (Ondansetron 4 Mg/2 Ml Sdv) 4 mg IVPUSH Q4H PRN PRN Reason: Nausea/Vomiting Pantoprazole Sodium (Pantoprazole 40 Mg Tab.Cr) 40 mg PO ACBREAKFAST [facility] Last Admin: 10/24/20 09:42 Dose: 40 mg Documented by: JOSE ANTONIOMICST Cosigned by: JACKELYN Paroxetine HCl (Paroxetine 20 Mg Tab) 40 mg PO BEDTIME [facility] Pravastatin Sodium (Pravastatin 40 Mg Tab) 80 mg PO BEDTIME [facility] Ranolazine (Ranolazine 500 Mg Tab.Er) 500 mg PO BID [facility] Last Admin: 10/24/20 09:42 Dose: 500 mg Documented by: STEWMICST Cosigned by: JACKELYN Labs: Laboratory Tests 10/23/20 10/23/20 10/23/20 Range/Units 17:30 17:30 17:30 WBC 5.49 (4.0-11.0) K/uL RBC 4.90 (4.50-5.90) M/uL Hgb 14.0 (13.0-17.0) g/dL Hct 42.3 (38.0-50.0) % MCV 86.3 (80.0-98.0) fL MCH 28.6 (27.0-32.0) pg MCHC 33.1 (31.0-37.0) g/dL RDW Std Deviation 48.2 (28.0-62.0) fl RDW Coeff of Ethan 15 (11.0-15.0) % Plt Count 290 (150-400) K/uL MPV 10.10 (7.40-12.00) fL Neut % (Auto) 56.1 (48.0-80.0) % Lymph % (Auto) 30.2 (16.0-40.0) % [place] % (Auto) 12.4 (0.0-15.0) % Eos % (Auto) 1.1 (0.0-7.0) % Baso % (Auto) 0.2 (0.0-1.5) % Neut # (Auto) 3.1 (1.4-5.7) K/uL Lymph # (Auto) 1.7 (0.6-2.4) K/uL [place] # (Auto) 0.7 (0.0-0.8) K/uL Eos # (Auto) 0.1 (0.0-0.7) K/uL Baso # (Auto) 0.0 (0.0-0.1) K/uL Nucleated RBC % 0.0 /100WBC Nucleated RBCs # 0 K/uL INR 1.61 APTT (18.6-31.3) SEC Sodium 137 (136-148) mmol/L Potassium 3.9 (3.5-5.1) mmol/L Chloride 102 (98-107) mmol/L Carbon Dioxide 23.6 (21.0-32.0) mmol/L BUN 22 H (7.0-18.0) mg/dL Creatinine 1.3 (0.8-1.3) mg/dL Est Cr Clr Drug Dosing 45.46 mL/min Estimated GFR (MDRD) 54.1 ml/min Glucose 126 H (74-106) mg/dL Hemoglobin A1c (4.5 - 6.2) % Calcium 9.9 (8.5-10.1) mg/dL Phosphorus 3.1 (2.6-4.7) mg/dL Magnesium 2.0 (1.8-2.4) mg/dL Total Bilirubin 0.8 (0.2-1.0) mg/dL AST 19 (15-37) IU/L ALT 18 (14-63) IU/L Alkaline Phosphatase 96 (46-116) U/L Creatine Kinase 95 (26-308) U/L Troponin I < 0.050 (0.000-0.056) ng/mL Total Protein 8.2 (6.4-8.2) g/dL Albumin 4.3 (3.4-5.0) g/dL Globulin 3.9 (2.6-4.0) g/dL Albumin/Globulin Ratio 1.1 (0.9-1.6) Triglycerides (0-200) mg/dL Cholesterol (50-200) mg/dL LDL Cholesterol, Calc (60-180) mg/dL VLDL Cholesterol (5-55) mg/dL HDL Cholesterol (40-60) mg/dL Cholesterol/HDL Ratio (3.3-6.0) Lipase 59 L (73-393) U/L TSH 3rd Generation (0.36-3.74) uIU/mL Ethyl Alcohol < 3.0 mg/dL 10/23/20 10/23/20 10/23/20 Range/Units 17:30 17:30 17:30 WBC (4.0-11.0) K/uL RBC (4.50-5.90) M/uL Hgb (13.0-17.0) g/dL Hct (38.0-50.0) % MCV (80.0-98.0) fL MCH (27.0-32.0) pg MCHC (31.0-37.0) g/dL RDW Std Deviation (28.0-62.0) fl RDW Coeff of Ethan (11.0-15.0) % Plt Count (150-400) K/uL MPV (7.40-12.00) fL Neut % (Auto) (48.0-80.0) % Lymph % (Auto) (16.0-40.0) % [place] % (Auto) (0.0-15.0) % Eos % (Auto) (0.0-7.0) % Baso % (Auto) (0.0-1.5) % Neut # (Auto) (1.4-5.7) K/uL Lymph # (Auto) (0.6-2.4) K/uL [place] # (Auto) (0.0-0.8) K/uL Eos # (Auto) (0.0-0.7) K/uL Baso # (Auto) (0.0-0.1) K/uL Nucleated RBC % /100WBC Nucleated RBCs # K/uL INR APTT 29.6 (18.6-31.3) SEC Sodium (136-148) mmol/L Potassium (3.5-5.1) mmol/L Chloride (98-107) mmol/L Carbon Dioxide (21.0-32.0) mmol/L BUN (7.0-18.0) mg/dL Creatinine (0.8-1.3) mg/dL Est Cr Clr Drug Dosing mL/min Estimated GFR (MDRD) ml/min Glucose (74-106) mg/dL Hemoglobin A1c 6.0 (4.5 - 6.2) % Calcium (8.5-10.1) mg/dL Phosphorus (2.6-4.7) mg/dL Magnesium (1.8-2.4) mg/dL Total Bilirubin (0.2-1.0) mg/dL AST (15-37) IU/L ALT (14-63) IU/L Alkaline Phosphatase (46-116) U/L Creatine Kinase (26-308) U/L Troponin I (0.000-0.056) ng/mL Total Protein (6.4-8.2) g/dL Albumin (3.4-5.0) g/dL Globulin (2.6-4.0) g/dL Albumin/Globulin Ratio (0.9-1.6) Triglycerides 132 (0-200) mg/dL Cholesterol 238 H (50-200) mg/dL LDL Cholesterol, Calc 151 (60-180) mg/dL VLDL Cholesterol 26 (5-55) mg/dL HDL Cholesterol 61 H (40-60) mg/dL Cholesterol/HDL Ratio 3.9 (3.3-6.0) Lipase (73-393) U/L TSH 3rd Generation 2.80 (0.36-3.74) uIU/mL Ethyl Alcohol mg/dL 10/23/20 Range/Units 20:15 WBC (4.0-11.0) K/uL RBC (4.50-5.90) M/uL Hgb (13.0-17.0) g/dL Hct (38.0-50.0) % MCV (80.0-98.0) fL MCH (27.0-32.0) pg MCHC (31.0-37.0) g/dL RDW Std Deviation (28.0-62.0) fl RDW Coeff of Ethan (11.0-15.0) % Plt Count (150-400) K/uL MPV (7.40-12.00) fL Neut % (Auto) (48.0-80.0) % Lymph % (Auto) (16.0-40.0) % [place] % (Auto) (0.0-15.0) % Eos % (Auto) (0.0-7.0) % Baso % (Auto) (0.0-1.5) % Neut # (Auto) (1.4-5.7) K/uL Lymph # (Auto) (0.6-2.4) K/uL [place] # (Auto) (0.0-0.8) K/uL Eos # (Auto) (0.0-0.7) K/uL Baso # (Auto) (0.0-0.1) K/uL Nucleated RBC % /100WBC Nucleated RBCs # K/uL INR APTT (18.6-31.3) SEC Sodium (136-148) mmol/L Potassium (3.5-5.1) mmol/L Chloride (98-107) mmol/L Carbon Dioxide (21.0-32.0) mmol/L BUN (7.0-18.0) mg/dL Creatinine (0.8-1.3) mg/dL Est Cr Clr Drug Dosing mL/min Estimated GFR (MDRD) ml/min Glucose (74-106) mg/dL Hemoglobin A1c (4.5 - 6.2) % Calcium (8.5-10.1) mg/dL Phosphorus (2.6-4.7) mg/dL Magnesium (1.8-2.4) mg/dL Total Bilirubin (0.2-1.0) mg/dL AST (15-37) IU/L ALT (14-63) IU/L Alkaline Phosphatase (46-116) U/L Creatine Kinase (26-308) U/L Troponin I < 0.050 (0.000-0.056) ng/mL Total Protein (6.4-8.2) g/dL Albumin (3.4-5.0) g/dL Globulin (2.6-4.0) g/dL Albumin/Globulin Ratio (0.9-1.6) Triglycerides (0-200) mg/dL Cholesterol (50-200) mg/dL LDL Cholesterol, Calc (60-180) mg/dL VLDL Cholesterol (5-55) mg/dL HDL Cholesterol (40-60) mg/dL Cholesterol/HDL Ratio (3.3-6.0) Lipase (73-393) U/L TSH 3rd Generation (0.36-3.74) uIU/mL Ethyl Alcohol mg/dL Meds: Medications Generic Name Dose Route Start Last Admin Trade Name Freq PRN Reason Stop Dose Admin Albuterol/Ipratropium 3 ml 10/23/20 22:19 Albuterol/Ipratropium 3.0-0.5 Mg/3 Ml Neb Soln NEB Q4HRRT PRN Shortness Of Breath/wheezing Carvedilol 3.125 mg 10/24/20 17:00 Carvedilol 3.125 Mg Tab PO BIDMEALS [facility] Clopidogrel Bisulfate 75 mg 10/24/20 09:00 10/24/20 09:42 Clopidogrel 75 Mg Tab PO 75 mg DAILY [facility] Administration Levetiracetam 500 mg 10/24/20 09:00 10/24/20 09:42 Levetiracetam 500 Mg Tab PO 500 mg BID ERICK Administration Morphine Sulfate 1 mg 10/24/20 01:44 Morphine 2 Mg/Ml Syringe IVPUSH Q4H PRN Pain Nitroglycerin 0.4 mg 10/24/20 01:44 Nitroglycerin 0.4 Mg Tab.Sl SL Q5M PRN Chest Pain Ondansetron HCl 4 mg 10/23/20 22:19 Ondansetron 4 Mg/2 Ml Sdv IVPUSH Q4H PRN Nausea/Vomiting Pantoprazole Sodium 40 mg 10/24/20 09:00 10/24/20 09:42 Pantoprazole 40 Mg Tab.Cr PO 40 mg ACBREAKFAST ERICK Administration Paroxetine HCl 40 mg 10/24/20 21:00 Paroxetine 20 Mg Tab PO BEDTIME ERICK Pravastatin Sodium 80 mg 10/24/20 21:00 Pravastatin 40 Mg Tab PO BEDTIME ERICK Ranolazine 500 mg 10/24/20 09:00 10/24/20 09:42 Ranolazine 500 Mg Tab.Er PO 500 mg BID ERICK Administration Discontinued Medications Generic Name Dose Route Start Last Admin Trade Name Freq PRN Reason Stop Dose Admin Aspirin 324 mg 10/23/20 17:31 10/23/20 17:38 Aspirin 81 Mg Tab.Chew PO 10/23/20 17:32 324 mg ONETIME ONE Administration Lactated Ringer's 1,000 mls @ 999 mls/hr 10/23/20 19:27 10/23/20 19:33 Ringers, Lactated IV 10/23/20 20:27 999 mls/hr .BOLUS ONE Administration Pantoprazole Sodium 40 mg/ 10 mls @ 300 mls/hr 10/24/20 21:00 Sodium Chloride IV Q24H [facility] Morphine Sulfate 4 mg 10/23/20 18:16 10/23/20 18:29 Morphine 4 Mg/Ml Syringe IVPUSH 10/23/20 18:17 4 mg ONETIME ONE Administration Nitroglycerin 0.4 mg 10/23/20 19:19 10/23/20 19:38 Nitroglycerin 0.4 Mg Tab.Sl SL 0.4 mg Q5M PRN Administration Chest Pain Ondansetron HCl 4 mg 10/23/20 18:35 10/23/20 18:40 Ondansetron 4 Mg/2 Ml Sdv IVPUSH 10/23/20 18:36 4 mg ONETIME ONE Administration Ondansetron HCl Confirm 10/23/20 18:36 10/23/20 18:40 Ondansetron 4 Mg/2 Ml Sdv Administered 10/23/20 18:37 Not Given Dose 4 mg .ROUTE .STK-MED ONE Pantoprazole Sodium 40 mg 10/23/20 22:30 10/24/20 00:49 Pantoprazole 40 Mg Vial IV 40 mg DAILY ERICK Administration Pantoprazole Sodium 40 mg 10/24/20 09:00 Pantoprazole 40 Mg Tab.Cr PO DAILY [facility] Departure - Departure Time of Disposition: 19:00 Disposition: Refer to Observation Condition: Fair Clinical Impression: Chest pain Qualifiers: Chest pain type: unspecified Qualified Code(s): R07.9 - Chest pain, unspecified Sepsis Event Note (ED) - Evaluation Sepsis Screening Result: No Definite Risk - Assessment/Plan Plan: Patient is a 75-year-old male presents today for possible chest pain. The chest pain is been present for the past few days per the . Here patient responded some question is not really give much history much as provided by the and she states that he was drinking heavily as we can not taking his meds. Will obtain EKG labs regarding ACS and reassess patient when patient more c ooperative.
[2020-10-23 18:12] LABS: BLOOD UREA NITROGEN,BUN 22 mg/dL (7.0-18.0); CARBON DIOXIDE,CO2 23.6 mmol/L (21.0-32.0); CHLORIDE,CL 102 mmol/L (98-107); GLUCOSE RANDOM 126 mg/dL (74-106); LIPASE 59 U/L (73-393); POTASSIUM,K 3.9 mmol/L (3.5-5.1); SODIUM,NA 137 mmol/L (136-148)
[2020-10-23] MEDS ORDERED: Morphine 4 MG/ML Syringe IVPUSH ONE (18:16)
[2020-10-23] MEDS ORDERED: Ondansetron 4 MG/2 ML SDV IVPUSH ONE (18:35)
[2020-10-23] MEDS ORDERED: Ondansetron 4 MG/2 ML SDV ONE (18:36)
--- NOTE | 2020-10-23 19:11 | CR ---
Indication: Chest pain Technique: Chest 1 view Comparison: August 06, 2020 Findings/Impression: Cardiovascular and mediastinum: Heart size and vasculature are normal in caliber and appearance. Mediastinum is within normal limits. Lungs and pleural space: Lungs are clear. No sign of infiltrate or mass. No sign of pleural effusion. No pneumothorax. Bones and soft tissues: No significant findings. Dictated by Marizol Daniels MD @ 10/23/2020 7:10:[address] Marizol Daniels @ Oct 23 2020 7:10PM
[2020-10-23] MEDS ORDERED: Lactated Ringers 1,000 ML IV ONE (19:27)
[2020-10-23] MEDS: Nitroglycerin 0.4 MG Tab.SL SL PRN ×2 (19:29→19:38)
[2020-10-23] MEDS ORDERED: Ondansetron 4 MG/2 ML SDV IVPUSH PRN (22:19)
[2020-10-23] MEDS ORDERED: Albuterol/Ipratropium 3.0-0.5 MG/3 ML Neb Soln NEB PRN (22:19)
[2020-10-23] MEDS ORDERED: Pantoprazole 40 MG Vial IV SCH (22:30)
[2020-10-24] MEDS ORDERED: Morphine 2 MG/ML SYRINGE IVPUSH PRN (01:44)
[2020-10-24] MEDS ORDERED: Nitroglycerin 0.4 MG Tab.SL SL PRN (01:44)
--- NOTE | 2020-10-24 08:13 | PCM.HP.2 ---
H&P History of Present Illness - General Date of Service: 10/24/20 Admit Problem/Dx: Admission Diagnosis/Problem Admission Diagnosis/Problem Chest pain Source of Information: Patient, Old Records History Limitations: Reports: No Limitations - History of Present Illness Initial Comments - Free Text/Narative: This 75-year-old male with past medical history of CAD with PCI, HFpEF, dilated ischemic cardiomyopathy, chronic dizziness, seizure, CVA and HLD presented to the ER with complaints of left-sided chest pain. In the ER the is reported he had been drinking alcohol heavily over the weekend and not taking any other medications. He reports that is been having this chest pain for the past few weeks. He reports the pain is gone today since he got morphine and nitro in the ER. He reports pain has been happening for the last few weeks but has been ignoring it because he does not want to come to the hospital. He denied any associated symptoms such as nausea vomiting diaphoresis or radiation of pain. Reports that the pain is present in the left chest around nipple line. Reports it hurts worse with movement but not necessarily activity. He denies any neck pain fevers chills sinus congestion or sore throat. Denies any abdominal pain nausea vomiting black or bloody bowel movements. Denies any dysuria. He otherwise has been doing well. He does report that he drank heavily over the weekend which worsened his pain intermittently. He denies smoking no recreational drug use and reports the heavy alcohol use at times. He reports that over the weekend he has not taken his medications and reports he gets them "moods" where he feels he does not need to take his medications. In the ER EKG obtained shows sinus tachycardia rate [address] T wave with no signs of ischemia. Vital signs in the ER upon arrival initially showed tachycardia 102 blood pressure 144/97 oxygen saturation 97 on room air. Throat is staying ER blood pressures have remained stable heart rate in the 70s. No leukocytosis noted on admission platelet count 290,000. Sodium 137 potassium 3.9 BUN 22 creatinine 1.3. Glucose 126 A1c is 6.0. Troponin negative alcohol level negative. TSH 2.80. Patient will be admitted secondary to chest pain rule out ACS. Patient has been admitted multiple times for left sided chest pain given history patient is high risk for ACS. Previous admission patient was scheduled for outpatient stress test that appeared the patient had canceled and never showed for stress test. Patient does follow with Dr. aFy cardiology and PCP Dr. Donovan. Appears last echo was from September 2019 which shows normal left ventricular internal cavity size. Global and mildly decreased left ventricular systolic function, ejection fraction 45%. Impaired relaxation, grade 1, pattern of LV diastolic filling. Aortic valve is tricuspid. Mild aortic valve regurgitation, mild mitral valve regurgitation and the right ventricular systolic pressure was unable to be determined. chest Pain Score (Numeric/FACES): 7 - Related Data Allergies/Adverse Reactions: Allergies Allergy/AdvReac Type Severity Reaction Status Date / Time No Known Allergies Allergy Verified 10/24/20 04:13 Home Medications: Home Meds Pantoprazole [ProTONIX] 40 mg PO DAILY 09/22/16 [History] Pravastatin [Pravachol] 80 mg PO BEDTIME 09/22/16 [History] Clopidogrel [Plavix] 75 mg PO DAILY 04/19/17 [History] PARoxetine [Paxil] 40 mg PO BEDTIME 04/19/17 [History] Aspirin [Halfprin] 81 mg PO DAILY #0 tab.ec 04/20/17 [Rx] Nitroglycerin [Nitrostat] 0.4 mg SL Q5M PRN MDD 3 03/07/18 [History] Ranolazine [Ranexa] 500 mg PO BID 01/14/19 [History] levETIRAcetam [Levetiracetam] 500 mg PO BID 01/14/19 [History] carvediloL [Carvedilol] 3.125 mg PO BIDMEALS 04/19/20 [History] Past Medical History - Past Health History Medical/Surgical History: Denies Medical/Surgical History HEENT History: Reports: Other (See Below) Other HEENT History: uses reading glasses Cardiovascular History: Reports: CAD, High Cholesterol, Hypertension, PA, Stents , Other (See Below) Other Cardiovascular History: PA in 2009 Respiratory History: Reports: None Gastrointestinal History: Reports: None Genitourinary History: Reports: None Musculoskeletal History: Reports: None Other Musculoskeletal History: has arthritis in back Neurological History: Reports: Vertigo, Other (See Below) Other Neuro History: hx of Claustrophobia Psychiatric History: Reports: Anxiety, Depression, Other (See Below) Other Psychiatric History: Claustrophobia 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, Type II 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 Hematologic History: Reports: Anticoagulation Therapy Immunologic History: Reports: None Oncologic (Cancer) History: Reports: None Dermatologic History: Reports: None - Infectious Disease History Infectious Disease History: Reports: Chicken Pox, Measles, Mumps - Past Surgical History Head Surgeries/Procedures: Reports: None HEENT Surgical History: Reports: Oral Surgery, Tonsillectomy, Other (See Below) Other HEENT Surgeries/Procedures: dental extractions, enlarged lymph nodes removed from neck Cardiovascular Surgical History: Reports: Coronary Artery Stent Other Cardiovascular Surgeries/Procedures: Stents x3 Respiratory Surgical History: Reports: None GI Surgical History: Reports: Appendectomy Male Surgical History: Reports: None Endocrine Surgical History: Reports: None Musculoskeletal Surgical History: Reports: None Oncologic Surgical History: Reports: None Dermatological Surgical History: Reports: None Social & Family History - Family History Family Medical History: No Pertinent Family History Cardiac: Reports: PA Respiratory: Reports: None Endocrine/Metabolic: Reports: Diabetes, Type I Hematologic: Reports: None Oncologic: Reports: Other (See Below) Other Oncologic Family History: Father side has cancer but patient doesn't know exactly what kind of CA - Tobacco Use Tobacco Use Status *Q: Never Tobacco User Second Hand Smoke Exposure: No - Caffeine Use Caffeine Use: Reports: None Other Caffeine Use: decaf Caffeine Use Comment: daily - Recreational Drug Use Recreational Drug Use: No - Living Situation & Occupation Living situation: Reports: Occupation: Retired H&P Review of Systems - Review of Systems: Review Of Systems: See Below General: Reports: No Symptoms. Denies: Fever, Chills, Malaise, Weakness HEENT: Reports: No Symptoms. Denies: Headaches, Sinus Congestion, Vertigo Pulmonary: Reports: No Symptoms. Denies: Shortness of Breath Cardiovascular: Denies: Chest Pain (No further chest pain since ER.), Edema, Lightheadedness, Syncope Gastrointestinal: Reports: No Symptoms. Denies: Abdominal Pain, Black Stool, Bloody Stool, Nausea, Vomiting Genitourinary: Reports: No Symptoms. Denies: Dysuria, Frequency Musculoskeletal: Reports: No Symptoms Skin: Reports: No Symptoms Psychiatric: Reports: No Symptoms Neurological: Reports: No Symptoms Hematologic/Lymphatic: Reports: No Symptoms Immunologic: Reports: No Symptoms Exam - Exam Exam: See Below - Vital Signs Vital Signs: Last Vital Signs Temp 97.7 F 10/24/20 07:21 Pulse 73 07/09/21 07:21 Resp 14 10/24/20 07:21 BP 105/70 10/24/20 07:21 Pulse Ox 97 10/24/20 07:21 Weight: 72.303 kg - Exam General: Alert, Oriented, Cooperative HEENT: Conjunctiva Clear, Mucosa Moist & [place], Posterior Pharynx Clear Lungs: Clear to Auscultation, Normal Respiratory Effort Cardiovascular: Regular Rate, Regular Rhythm GI/Abdominal Exam: Normal Bowel Sounds, Soft, Non-Tender Neuro Extensive - Mental Status: Alert, Oriented x3 Neuro Extensive - Motor, Sensory, Reflexes: CN II-XII Intact Psychiatric: Alert, Normal Affect, Normal Mood - Patient Data Lab Results Last 24 hrs: Laboratory Results - last 24 hr 10/23/20 10/23/20 10/23/20 Range/Units 17:30 17:30 17:30 WBC 5.49 (4.0-11.0) K/uL RBC 4.90 (4.50-5.90) M/uL Hgb 14.0 (13.0-17.0) g/dL Hct 42.3 (38.0-50.0) % MCV 86.3 (80.0-98.0) fL MCH 28.6 (27.0-32.0) pg MCHC 33.1 (31.0-37.0) g/dL RDW Std Deviation 48.2 (28.0-62.0) fl RDW Coeff of Ethan 15 (11.0-15.0) % Plt Count 290 (150-400) K/uL MPV 10.10 (7.40-12.00) fL Neut % (Auto) 56.1 (48.0-80.0) % Lymph % (Auto) 30.2 (16.0-40.0) % Cole % (Auto) 12.4 (0.0-15.0) % Eos % (Auto) 1.1 (0.0-7.0) % Baso % (Auto) 0.2 (0.0-1.5) % Neut # (Auto) 3.1 (1.4-5.7) K/uL Lymph # (Auto) 1.7 (0.6-2.4) K/uL Cole # (Auto) 0.7 (0.0-0.8) K/uL Eos # (Auto) 0.1 (0.0-0.7) K/uL Baso # (Auto) 0.0 (0.0-0.1) K/uL Nucleated RBC % 0.0 /100WBC Nucleated RBCs # 0 K/uL INR 1.61 APTT (18.6-31.3) SEC Sodium 137 (136-148) mmol/L Potassium 3.9 (3.5-5.1) mmol/L Chloride 102 (98-107) mmol/L Carbon Dioxide 23.6 (21.0-32.0) mmol/L BUN 22 H (7.0-18.0) mg/dL Creatinine 1.3 (0.8-1.3) mg/dL Est Cr Clr Drug Dosing 45.46 mL/min Estimated GFR (MDRD) 54.1 ml/min Glucose 126 H (74-106) mg/dL Hemoglobin A1c (4.5 - 6.2) % Calcium 9.9 (8.5-10.1) mg/dL Phosphorus 3.1 (2.6-4.7) mg/dL Magnesium 2.0 (1.8-2.4) mg/dL Total Bilirubin 0.8 (0.2-1.0) mg/dL AST 19 (15-37) IU/L ALT 18 (14-63) IU/L Alkaline Phosphatase 96 (46-116) U/L Creatine Kinase 95 (26-308) U/L Troponin I < 0.050 (0.000-0.056) ng/mL Total Protein 8.2 (6.4-8.2) g/dL Albumin 4.3 (3.4-5.0) g/dL Globulin 3.9 (2.6-4.0) g/dL Albumin/Globulin Ratio 1.1 (0.9-1.6) Triglycerides (0-200) mg/dL Cholesterol (50-200) mg/dL LDL Cholesterol, Calc (60-180) mg/dL VLDL Cholesterol (5-55) mg/dL HDL Cholesterol (40-60) mg/dL Cholesterol/HDL Ratio (3.3-6.0) Lipase 59 L (73-393) U/L TSH 3rd Generation (0.36-3.74) uIU/mL Ethyl Alcohol < 3.0 mg/dL 10/23/20 10/23/20 10/23/20 Range/Units 17:30 17:30 17:30 WBC (4.0-11.0) K/uL RBC (4.50-5.90) M/uL Hgb (13.0-17.0) g/dL Hct (38.0-50.0) % MCV (80.0-98.0) fL MCH (27.0-32.0) pg MCHC (31.0-37.0) g/dL RDW Std Deviation (28.0-62.0) fl RDW Coeff of Ethan (11.0-15.0) % Plt Count (150-400) K/uL MPV (7.40-12.00) fL Neut % (Auto) (48.0-80.0) % Lymph % (Auto) (16.0-40.0) % Cole % (Auto) (0.0-15.0) % Eos % (Auto) (0.0-7.0) % Baso % (Auto) (0.0-1.5) % Neut # (Auto) (1.4-5.7) K/uL Lymph # (Auto) (0.6-2.4) K/uL Cole # (Auto) (0.0-0.8) K/uL Eos # (Auto) (0.0-0.7) K/uL Baso # (Auto) (0.0-0.1) K/uL Nucleated RBC % /100WBC Nucleated RBCs # K/uL INR APTT 29.6 (18.6-31.3) SEC Sodium (136-148) mmol/L Potassium (3.5-5.1) mmol/L Chloride (98-107) mmol/L Carbon Dioxide (21.0-32.0) mmol/L BUN (7.0-18.0) mg/dL Creatinine (0.8-1.3) mg/dL Est Cr Clr Drug Dosing mL/min Estimated GFR (MDRD) ml/min Glucose (74-106) mg/dL Hemoglobin A1c 6.0 (4.5 - 6.2) % Calcium (8.5-10.1) mg/dL Phosphorus (2.6-4.7) mg/dL Magnesium (1.8-2.4) mg/dL Total Bilirubin (0.2-1.0) mg/dL AST (15-37) IU/L ALT (14-63) IU/L Alkaline Phosphatase (46-116) U/L Creatine Kinase (26-308) U/L Troponin I (0.000-0.056) ng/mL Total Protein (6.4-8.2) g/dL Albumin (3.4-5.0) g/dL Globulin (2.6-4.0) g/dL Albumin/Globulin Ratio (0.9-1.6) Triglycerides 132 (0-200) mg/dL Cholesterol 238 H (50-200) mg/dL LDL Cholesterol, Calc 151 (60-180) mg/dL VLDL Cholesterol 26 (5-55) mg/dL HDL Cholesterol 61 H (40-60) mg/dL Cholesterol/HDL Ratio 3.9 (3.3-6.0) Lipase (73-393) U/L TSH 3rd Generation 2.80 (0.36-3.74) uIU/mL Ethyl Alcohol mg/dL 10/23/20 10/23/20 Range/Units 20:15 23:06 WBC (4.0-11.0) K/uL RBC (4.50-5.90) M/uL Hgb (13.0-17.0) g/dL Hct (38.0-50.0) % MCV (80.0-98.0) fL MCH (27.0-32.0) pg MCHC (31.0-37.0) g/dL RDW Std Deviation (28.0-62.0) fl RDW Coeff of Ethan (11.0-15.0) % Plt Count (150-400) K/uL MPV (7.40-12.00) fL Neut % (Auto) (48.0-80.0) % Lymph % (Auto) (16.0-40.0) % Cole % (Auto) (0.0-15.0) % Eos % (Auto) (0.0-7.0) % Baso % (Auto) (0.0-1.5) % Neut # (Auto) (1.4-5.7) K/uL Lymph # (Auto) (0.6-2.4) K/uL Cole # (Auto) (0.0-0.8) K/uL Eos # (Auto) (0.0-0.7) K/uL Baso # (Auto) (0.0-0.1) K/uL Nucleated RBC % /100WBC Nucleated RBCs # K/uL INR APTT (18.6-31.3) SEC Sodium (136-148) mmol/L Potassium (3.5-5.1) mmol/L Chloride (98-107) mmol/L Carbon Dioxide (21.0-32.0) mmol/L BUN (7.0-18.0) mg/dL Creatinine (0.8-1.3) mg/dL Est Cr Clr Drug Dosing mL/min Estimated GFR (MDRD) ml/min Glucose (74-106) mg/dL Hemoglobin A1c (4.5 - 6.2) % Calcium (8.5-10.1) mg/dL Phosphorus (2.6-4.7) mg/dL Magnesium (1.8-2.4) mg/dL Total Bilirubin (0.2-1.0) mg/dL AST (15-37) IU/L ALT (14-63) IU/L Alkaline Phosphatase (46-116) U/L Creatine Kinase (26-308) U/L Troponin I < 0.050 < 0.050 (0.000-0.056) ng/mL Total Protein (6.4-8.2) g/dL Albumin (3.4-5.0) g/dL Globulin (2.6-4.0) g/dL Albumin/Globulin Ratio (0.9-1.6) Triglycerides (0-200) mg/dL Cholesterol (50-200) mg/dL LDL Cholesterol, Calc (60-180) mg/dL VLDL Cholesterol (5-55) mg/dL HDL Cholesterol (40-60) mg/dL Cholesterol/HDL Ratio (3.3-6.0) Lipase (73-393) U/L TSH 3rd Generation (0.36-3.74) uIU/mL Ethyl Alcohol mg/dL Result Diagrams: 10/23/20 17:30 10/23/20 17:30 Sepsis Event Note - Evaluation Sepsis Screening Result: No Definite Risk - Focused Exam Vital Signs: Vital Signs Temp Pulse Resp BP Pulse Ox Pulse Ox 10/24/20 07:21 97.7 F 73 14 105/70 97 10/24/20 04:00 97.5 F 71 18 109/76 94 L 10/24/20 01:00 94 L 10/24/20 00:00 97.5 F 79 20 112/67 94 L 10/23/20 22:58 71 20 113/78 94 L 10/23/20 21:50 71 18 110/72 93 L 10/23/20 21:28 80 14 107/80 95 10/23/20 20:24 80 18 113/73 90 L - Problem List (1) Non compliance with medical treatment SNOMED Code(s): 9209885 ICD Code: Z91.19 - PATIENT'S NONCOMPLIANCE W OTH MEDICAL TREATMENT AND REGIMEN Status: Acute Current Visit: Yes (2) Chest pain SNOMED Code(s): 38990563 ICD Code: R07.9 - CHEST PAIN, UNSPECIFIED Status: Acute Current Visit: Yes Qualifiers: Chest pain type: unspecified Qualified Code(s): R07.9 - Chest pain, unspecified (3) Alcohol abuse SNOMED Code(s): 88617662 ICD Code: F10.10 - ALCOHOL ABUSE, UNCOMPLICATED Status: Acute Priority: Medium Current Visit: No (4) Atypical chest pain SNOMED Code(s): 135398547 ICD Code: R07.89 - OTHER CHEST PAIN Status: Acute Priority: High Current Visit: No (5) Anxiety SNOMED Code(s): 98813675 ICD Code: F41.9 - ANXIETY DISORDER, UNSPECIFIED Status: Chronic Current Visit: No (6) Chest pain, rule out acute myocardial infarction SNOMED Code(s): 00675387 ICD Code: R07.9 - CHEST PAIN, UNSPECIFIED Status: Chronic Priority: Medium Current Visit: No (7) Coronary artery disease SNOMED Code(s): 82640471 ICD Code: I25.10 - ATHSCL HEART DISEASE OF [place] CORONARY ARTERY W/O ANG PCTRS Status: Chronic Priority: Medium Current Visit: No Qualifiers: Associated angina: with unspecified angina (8) HTN (hypertension) SNOMED Code(s): 92911403 ICD Code: I10 - ESSENTIAL (PRIMARY) HYPERTENSION Status: Chronic Priority: High Current Visit: No Qualifiers: Hypertension type: essential hypertension Qualified Code(s): I10 - Essenti al (primary) hypertension (9) History of coronary artery stent placement SNOMED Code(s): 592043190, 598593198 ICD Code: Z95.5 - PRESENCE OF CORONARY ANGIOPLASTY IMPLANT AND GRAFT Status: Chronic Priority: High Current Visit: No (10) Hyperlipidemia SNOMED Code(s): 86407228 ICD Code: E78.5 - HYPERLIPIDEMIA, UNSPECIFIED Status: Chronic Priority: Medium Current Visit: No Qualifiers: Hyperlipidemia type: unspecified Qualified Code(s): E78.5 - Hyperlipidemia, unspecified (11) Seizure SNOMED Code(s): 83044574 ICD Code: R56.9 - UNSPECIFIED CONVULSIONS Status: Chronic Priority: High Current Visit: No Problem List Initiated/Reviewed/Updated: Yes Orders Last 24hrs: Active Orders 24 hr Category Date Time Status Patient Status [ADT] Routine ADT 10/23/20 22:00 Active Ambulate [RC] ASDIRECTED Care 10/23/20 22:19 Active Antiembolic Devices [RC] PER UNIT ROUTINE Care 10/23/20 22:20 Active EKG Documentation Completion [RC] STAT Care 10/23/20 17:32 Active Oxygen Therapy [RC] PRN Care 10/23/20 22:19 Active Pulse Oximetry [RC] PRN Care 10/23/20 22:19 Active RT Aerosol Therapy [RC] ASDIRECTED Care 10/23/20 22:20 Active Telemetry Monitoring [Cardiac Monitoring] [RC] Q8H Care 10/23/20 23:31 Active VTE/DVT Education [RC] PER UNIT ROUTINE Care 10/23/20 22:19 Active Vital Signs [RC] Q4H Care 10/23/20 22:19 Active Heart Healthy Diet [DIET] Diet 10/23/20 Dinner Active Albuterol/Ipratropium [DuoNeb 3.0-0.5 MG/3 ML] Med 10/23/20 22:19 Active 3 ml NEB Q4HRRT PRN Morphine Med 10/24/20 01:44 Active 1 mg IVPUSH Q4H PRN Nitroglycerin [Nitrostat] Med 10/24/20 01:44 Active 0.4 mg SL Q5M PRN Ondansetron [Zofran] Med 10/23/20 22:19 Active 4 mg IVPUSH Q4H PRN Pantoprazole [ProTONIX IV] 40 mg Med 10/24/20 21:00 Active Sodium Chloride 0.9% [Normal Saline] 10 ml IV Q24H Sequential Compression Device [OM.PC] Per Unit Routine Oth 10/23/20 22:19 Ordered Medication Orders Albuterol/Ipratropium (Albuterol/Ipratropium 3.0-0.5 Mg/3 Ml Neb Soln) 3 ml NEB Q4HRRT PRN PRN Reason: Shortness Of Breath/wheezing Pantoprazole Sodium 40 mg/ (Sodium Chloride) 10 mls @ 300 mls/hr IV Q24H ERICK Morphine Sulfate (Morphine 2 Mg/Ml Syringe) 1 mg IVPUSH Q4H PRN PRN Reason: Pain Nitroglycerin (Nitroglycerin 0.4 Mg Tab.Sl) 0.4 mg SL Q5M PRN PRN Reason: Chest Pain Ondansetron HCl (Ondansetron 4 Mg/2 Ml Sdv) 4 mg IVPUSH Q4H PRN PRN Reason: Nausea/Vomiting Assessment/Plan Comment:: This 75-year-old male admitted with chest pain rule out ACS. 1. Chest pain rule out ACS Telemetry Troponins x3 have been negative Vital signs stable we will continue home medications We will obtain echo-echo report received. This reveals mildly decreased left- ventricular systolic function. Approximately 45 to 50%. Basal and mid inferior wall and basal mid inferior lateral wall are abnormal. Impaired fixation grade 1 pattern of LV diastolic filling. No evidence of LVH. Normal right ventricular size wall thickness and systolic function. Mild aortic valve sclerosis without stenosis. Mild aortic valve regurgitation trace mitral valve regurgitation trace tricuspid valve regurgitation and right ventricular systolic pressure is 19. Schedule outpatient stress test Schedule outpatient evaluation with Dr. Fay as it appears he has not seen him in many months. 2. Possible gastritis, alcohol use over the weekend. Continue Protonix 3. CAD, dilated ischemic cardiomyopathy Continue home medications of Plavix, Coreg, pravastatin, aspirin and Ranexa. VTE prophylaxis SCDs GI prophylaxis Protonix CODE STATUS: Full code Dispo possible discharge later today. Discharge plan Patient will be discharged home today. Patient is chest pain-free. Troponins have been negative x3 no acute hemic changes noted on telemetry. Patient counseled heavily on being pliant with medications as he already has CAD with PCI x3. He will need to follow-up with Dr. Lopez, radiology as well as have outpatient stress test. He is to stay away from alcohol use he verbalized understanding and remain compliant with all medications. He is to follow-up with PCP in 1 to 2 weeks. Return to the ER clinic if concerns should arise.
[2020-10-24] MEDS ORDERED: Clopidogrel 75 MG Tab PO SCH (09:00)
[2020-10-24] MEDS ORDERED: Pantoprazole 40 MG Tab.CR PO SCH ×2 (09:00)
[2020-10-24] MEDS ORDERED: levETIRAcetam 500 MG Tab PO SCH (09:00)
[2020-10-24 11:26] VITALS: BP 120/69; PULSE 72
[2020-10-24] MEDS ORDERED: Carvedilol 3.125 MG Tab PO SCH (17:00)
[2020-10-24] MEDS ORDERED: Pantoprazole 40 MG in Sodium Chloride 0.9% 10 ML IV SCH (21:00)
[2020-10-24] MEDS ORDERED: Pravastatin 40 MG Tab PO SCH (21:00)
[2020-10-24] MEDS ORDERED: PARoxetine 20 MG Tab PO SCH (21:00)
--- NOTE | 2020-10-27 16:22 | ECHO ---
The echocardiogram report can be seen in this patient's EMR (Electronic Medical Record) in the Reports section. The report has also been scanned into PACS. ETHAN
== END 2020-10-24 13:34 | disposition home or self-care (01) ==
LOC: MW.ED 17:16 → MW.MS 21:29
PROVIDERS: ADMIT Student in an Organized Health Care Education/Training Program; ATTEND Student in an Organized Health Care Education/Training Program
DX: R07.9 Chest pain, unspecified (principal); I25.10 Atherosclerotic heart disease of native coronary artery without angina pectoris; I50.30 Unspecified diastolic (congestive) heart failure; E78.5 Hyperlipidemia, unspecified; I42.0 Dilated cardiomyopathy; I25.5 Ischemic cardiomyopathy; E78.00 Pure hypercholesterolemia, unspecified; I11.0 Hypertensive heart disease with heart failure; I25.2 Old myocardial infarction; E11.9 Type 2 diabetes mellitus without complications; F10.10 Alcohol abuse, uncomplicated; Z79.899 Other long term (current) drug therapy; Z98.890 Other specified postprocedural states
CPT/HCPCS: 36415; 71045; 80053; 80061; 80307; 82550; 83036; 83690; 83735; 84100; 84443; 84484; 85025; 85610; 85730; 93306; A9270; C9113; J2270; J2405; J7120; 93005; 96374; 96375; 99285-25; G0378

== ENCOUNTER 2020-10-29 09:45 | Emergency (ER) | payer MEDICARE ==
[2020-10-29] MEDS ORDERED: Morphine 4 MG/ML Syringe IM ONE (09:58)
[2020-10-29] MEDS ORDERED: Sodium Chloride 0.9% 10 ML Syringe FLUSH PRN (09:58)
[2020-10-29] MEDS ORDERED: Sodium Chloride 0.9% 2.5 ML Syringe FLUSH PRN (09:58)
--- NOTE | 2020-10-29 09:59 | EDM.PDOC ---
ED HPI GENERAL MEDICAL PROBLEM - General Chief Complaint: Chest Pain Stated Complaint: CP Time Seen by Provider: 10/29/20 09:47 - History of Present Illness INITIAL COMMENTS - FREE TEXT/NARRATIVE: History of present illness: [] Review of systems: As per history of present illness and below otherwise all systems reviewed and negative. Past medical history: As per history of present illness and as reviewed below otherwise no ncontributory. Before the patient arrived I received a call from the clinic Said the patient had his usual angina but did not respond to nitroglycerin. The clinic doctor said if he had angina and it is bad enough to come to the clinic that he probably should be evaluated in the emergency department. The patient is a vague historian. Apparently he suffered with worse pain than usual for 1 week. 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 The patient continues to have pain and feels weak and jittery. He had trouble getting out of the wheelchair when he got here because of weakness. He appears slightly short of breath but does not report this as part of his history. He is not vomiting. Review of his chart shows that on the ninth of this month he was placed in observation status for chest pain. It shows a stress test had been recently scheduled but he missed it because he was drinking heavily according to the . Surgical history: As per history of present illness and as reviewed below otherwise noncontributory. Social history: No reported history of drug or alcohol abuse. Family history: As per history of present illness and as reviewed below otherwise noncontributory. Physical exam: Constitutional - well developed, well-nourished and in no acute distress HEENT - normocephalic, no evidence of trauma - external nose and mouth normal - no mass in neck and no JVD - mucosae moist EYES - full EOM, PERRL, no icterus - no evidence of inflammation, injection, or drainage Respiratory - no respiratory distress, equal bilateral expansion, lungs clear to auscultation and no abnormal lung sounds Cardiovascular - Regular Rhythm with S1 and S2 appreciated and no murmur, gallop or rub. GI - abdomen soft without distension or organomegaly - normal bowel sounds - no guard or rebound Musculoskeletal no gross deformity of long bones or joints - no tenderness, swelling or edema Neurologic -patient is a little weak and has some tremor. At first he does not get out of the wheelchair but then with assistance he is able to put himself onto the stretcher. Alert and oriented times four - CN II-XII grossly intact - motor sensory and coordination symmetrically normal Psychiatric - appropriate mood and affect with normal thought content Hematologic - No petechiae or purpura - mucosa appropriate color and sclera not pale - normal nail bed color and refill Integument - no rash or evidence of trauma - normal turgor Diagnostics: [] Therapeutics: [] Impression: [] Plan: [] Definitive disposition and diagnosis as appropriate pending reevaluation and review of above. chest Pain Score (Numeric/FACES): 6 - Related Data Allergies Allergy/AdvReac Type Severity Reaction Status Date / Time No Known Allergies Allergy Verified 10/29/20 09:59 Home Meds: Home Meds Pantoprazole [ProTONIX] 40 mg PO DAILY 09/22/16 [History] Pravastatin [Pravachol] 80 mg PO BEDTIME 09/22/16 [History] Clopidogrel [Plavix] 75 mg PO DAILY 04/19/17 [History] PARoxetine [Paxil] 40 mg PO BEDTIME 04/19/17 [History] Aspirin [Halfprin] 81 mg PO DAILY #0 tab.ec 04/20/17 [Rx] Nitroglycerin [Nitrostat] 0.4 mg SL Q5M PRN MDD 3 03/07/18 [History] Ranolazine [Ranexa] 500 mg PO BID 01/14/19 [History] levETIRAcetam [Levetiracetam] 500 mg PO BID 01/14/19 [History] carvediloL [Carvedilol] 3.125 mg PO BIDMEALS 04/19/20 [History] Past Medical History - Past Health History Medical/Surgical History: Denies Medical/Surgical History HEENT History: Reports: Other (See Below) Other HEENT History: uses reading glasses Cardiovascular History: Reports: CAD, High Cholesterol, Hypertension, [place], Stents, Other (See Below) Other Cardiovascular History: [place] in 2009 Respiratory History: Reports: None Gastrointestinal History: Reports: None Genitourinary History: Reports: None Musculoskeletal History: Reports: None Other Musculoskeletal History: has arthritis in back Neurological History: Reports: Vertigo, Other (See Below) Other Neuro History: hx of Claustrophobia Psychiatric History: Reports: Anxiety, Depression, Other (See Below) Other Psychiatric History: Claustrophobia 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, Type 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: None Hematologic History: Reports: Anticoagulation Therapy Immunologic History: Reports: None Oncologic (Cancer) History: Reports: None Dermatologic History: Reports: None - Infectious Disease History Infectious Disease History: Reports: Chicken Pox, Measles, Mumps - Past Surgical History Head Surgeries/Procedures: Reports: None HEENT Surgical History: Reports: Oral Surgery, Tonsillectomy, Other (See Below) Other HEENT Surgeries/Procedures: dental extractions, enlarged lymph nodes removed from neck Cardiovascular Surgical History: Reports: Coronary Artery Stent Other Cardiovascular Surgeries/Procedures: Stents x3 Respiratory Surgical History: Reports: None GI Surgical History: Reports: Appendectomy Male Surgical History: Reports: None Endocrine Surgical History: Reports: None Musculoskeletal Surgical History: Reports: None Oncologic Surgical History: Reports: None Dermatological Surgical History: Reports: None Social & Family History - Family History Family Medical History: No Pertinent Family History Cardiac: Reports: MD Respiratory: Reports: None Endocrine/Metabolic: Reports: Diabetes, Type I Hematologic: Reports: None Oncologic: Reports: Other (See Below) Other Oncologic Family History: Father side has cancer but patient doesn't know exactly what kind of CA - Caffeine Use Caffeine Use: Reports: None Other Caffeine Use: decaf Caffeine Use Comment: daily - Living Situation & Occupation Living situation: Reports: Occupation: Retired ED ROS GENERAL - Review of Systems Review Of Systems: Comprehensive ROS is negative, except as noted in HPI. ED EXAM, GENERAL - Physical Exam Exam: See Below Free Text/Narrative:: My physical exam is in the HPI #1 Interpretation EKG Interpretation Comments: EKG sinus rhythm with frequent PVCs. 75 is the rate IN interval 147 QRS duration 114 QT duration 460 axis XII. He has a incomplete left bundle branch block. Compared to 10/23/2020 T waves are inverted in the inferior leads. The PVCs are new. Impression concerning for possible acute ischemia. Course - Vital Signs Text/Narrative:: Patient has had a identical pain for a week. It is no different no worse. He has an appoint with cardiology at 330. I woke him up to give him his results. He says he feels okay to go home. Last Recorded V/S: Last Vital Signs Temp 36.2 C 10/29/20 09:56 Pulse 74 10/29/20 09:56 Resp 18 10/29/20 09:56 BP 131/80 10/29/20 09:56 Pulse Ox 99 10/29/20 09:56 - Orders/Labs/Meds Orders: Active Orders 24 hr Category Date Time Status EKG Documentation Completion [RC] AM Care 10/29/20 09:58 Active Sodium Chloride 0.9% [Saline Flush] Med 10/29/20 09:58 Active 10 ml FLUSH ASDIRECTED PRN Sodium Chloride 0.9% [Saline Flush] Med 10/29/20 09:58 Active 2.5 ml FLUSH ASDIRECTED PRN Saline Lock Insert [OM.PC] Stat Oth 10/29/20 09:58 Ordered Medication Orders Sodium Chloride (Sodium Chloride 0.9% 10 Ml Syringe) 10 ml FLUSH ASDIRECTED PRN PRN Reason: Keep Vein Open Last Admin: 10/29/20 10:05 Dose: 10 ml Documented by: ABRIL Sodium Chloride (Sodium Chloride 0.9% 2.5 Ml Syringe) 2.5 ml FLUSH ASDIRECTED PRN PRN Reason: Keep Vein Open Last Admin: 10/29/20 10:05 Dose: 2.5 ml Documented by: ABRIL Labs: Laboratory Tests 10/29/20 10/29/20 10/29/20 Range/Units 09:57 09:57 09:57 WBC 5.37 (4.0-11.0) K/uL RBC 4.57 (4.50-5.90) M/uL Hgb 13.0 (13.0-17.0) g/dL Hct 39.6 (38.0-50.0) % MCV 86.7 (80.0-98.0) fL MCH 28.4 (27.0-32.0) pg MCHC 32.8 (31.0-37.0) g/dL RDW Std Deviation 48.8 (28.0-62.0) fl RDW Coeff of Ethan 15 (11.0-15.0) % Plt Count 268 (150-400) K/uL MPV 9.70 (7.40-12.00) fL Neut % (Auto) 58.3 (48.0-80.0) % Lymph % (Auto) 27.4 (16.0-40.0) % Gillespie % (Auto) 12.8 (0.0-15.0) % Eos % (Auto) 1.3 (0.0-7.0) % Baso % (Auto) 0.2 (0.0-1.5) % Neut # (Auto) 3.1 (1.4-5.7) K/uL Lymph # (Auto) 1.5 (0.6-2.4) K/uL Gillespie # (Auto) 0.7 (0.0-0.8) K/uL Eos # (Auto) 0.1 (0.0-0.7) K/uL Baso # (Auto) 0.0 (0.0-0.1) K/uL Nucleated RBC % 0.0 /100WBC Nucleated RBCs # 0 K/uL Sodium 142 (136-148) mmol/L Potassium 3.9 (3.5-5.1) mmol/L Chloride 103 (98-107) mmol/L Carbon Dioxide 29.1 (21.0-32.0) mmol/L BUN 18 (7.0-18.0) mg/dL Creatinine 1.4 H (0.8-1.3) mg/dL Est Cr Clr Drug Dosing 43.94 mL/min Estimated GFR (MDRD) 49.7 ml/min Glucose 109 H (74-106) mg/dL Calcium 8.8 (8.5-10.1) mg/dL Magnesium 1.8 (1.8-2.4) mg/dL Total Bilirubin 0.4 (0.2-1.0) mg/dL AST 15 (15-37) IU/L ALT 15 (14-63) IU/L Alkaline Phosphatase 80 (46-116) U/L Troponin I < 0.050 (0.000-0.056) ng/mL Total Protein 7.3 (6.4-8.2) g/dL Albumin 4.0 (3.4-5.0) g/dL Globulin 3.3 (2.6-4.0) g/dL Albumin/Globulin Ratio 1.2 (0.9-1.6) Ethyl Alcohol <3 mg/dL Meds: Medications Generic Name Dose Route Start Last Admin Trade Name Freq PRN Reason Stop Dose Admin Sodium Chloride 10 ml 07/14/21 09:58 10/29/20 10:05 Sodium Chloride 0.9% 10 Ml Syringe FLUSH 10 ml ASDIRECTED PRN Administration Keep Vein Open Sodium Chloride 2.5 ml 10/29/20 09:58 10/29/20 10:05 Sodium Chloride 0.9% 2.5 Ml Syringe FLUSH 2.5 ml ASDIRECTED PRN Administration Keep Vein Open Discontinued Medications Generic Name Dose Route Start Last Admin Trade Name Tenisha PRN Reason Stop Dose Admin Morphine Sulfate 4 mg 10/29/20 09:58 10/29/20 10:02 Morphine 4 Mg/Ml Syringe IM 10/29/20 09:59 4 mg ONETIME ONE Administration Departure - Departure Time of Disposition: 10:54 Disposition: Home, Self-Care 01 Condition: Good Clinical Impression: Angina pectoris - Discharge Information Instructions: Angina, Hybi-di-Azjy Referrals: Bo Lopez MD [Primary Care Provider] - Forms: ED Department Discharge Additional Instructions: [facility] - cardiology [address] [place] [id number] The following information is given to patients seen in the emergency department who are being discharged to home. This information is to outline your options for follow-up care. We provide all patients seen in our emergency department with a follow-up referral. The need for follow-up, as well as the timing and circumstances, are variable depending upon the specifics of your emergency department visit. If you don't have a primary care physician on staff, we will provide you with a referral. We always advise you to contact your personal physician following an emergency department visit to inform them of the circumstance of the visit and for follow-up with them and/or the need for any referrals to a consulting specialist. The emergency department will also refer you to a specialist when appropriate. This referral assures that you have the opportunity for follow-up care with a specialist. All of these measure are taken in an effort to provide you with optimal care, which includes your follow-up. Under all circumstances we always encourage you to contact your private physician who remains a resource for coordinating your care. When calling for follow-up care, please make the office aware that this follow-up is from your recent emergency room visit. If for any reason you are refused follow-up, please contact the [facility] Emergency Department at and asked to speak to the emergency department charge nurse. Sepsis Event Note (ED) - Focused Exam Vital Signs: Vital Signs Temp Pulse Resp BP Pulse Ox 10/29/20 09:56 36.2 C 74 18 131/80 99 - My Orders Last 24 Hours: My Active Orders 10/29/20 09:58 EKG Documentation Completion [RC] AM Sodium Chloride 0.9% [Saline Flush] 10 ml FLUSH ASDIRECTED PRN Sodium Chloride 0.9% [Saline Flush] 2.5 ml FLUSH ASDIRECTED PRN Saline Lock Insert [OM.PC] Stat - Assessment/Plan Last 24 Hours: My Active Orders 10/29/20 09:58 EKG Documentation Completion [RC] AM Sodium Chloride 0.9% [Saline Flush] 10 ml FLUSH ASDIRECTED PRN Sodium Chloride 0.9% [Saline Flush] 2.5 ml FLUSH ASDIRECTED PRN Saline Lock Insert [OM.PC] Stat
--- NOTE | 2020-10-29 10:36 | CR ---
Indication: Chest pain Comparison: Single view chest with two views ribs August 06, 2020 Technique: Single AP view chest Findings: There is hyperinflation and chronic interstitial change. There is no focal consolidation, effusion, or pneumothorax. The cardiac silhouette is mildly prominent with a tortuous thoracic aorta. The bony thorax is grossly intact. Impression: There is hyperinflation and chronic interstitial changes with minimal basilar atelectasis versus scar. Dictated by Inderjit Hall MD @ 10/29/2020 10:35:[address] Inderjit Hall @ Oct 29 2020 10:35AM
[2020-10-29 10:38] LABS: BLOOD UREA NITROGEN,BUN 18 mg/dL (7.0-18.0); CARBON DIOXIDE,CO2 29.1 mmol/L (21.0-32.0); CHLORIDE,CL 103 mmol/L (98-107); GLUCOSE RANDOM 109 mg/dL (74-106); POTASSIUM,K 3.9 mmol/L (3.5-5.1); SODIUM,NA 142 mmol/L (136-148)
[2020-10-29] MEDS ORDERED: Aspirin 81 MG Tab.Chew PO ONE (11:04)
[2020-10-29 14:41] VITALS: BP 104/66; PULSE 96
== END 2020-10-29 14:40 | disposition home or self-care (01) ==
LOC: MW.ED 09:45
DX: I25.119 Atherosclerotic heart disease of native coronary artery with unspecified angina pectoris (principal); I44.7 Left bundle-branch block, unspecified; I25.10 Atherosclerotic heart disease of native coronary artery without angina pectoris; E78.00 Pure hypercholesterolemia, unspecified; I10 Essential (primary) hypertension; I25.2 Old myocardial infarction; M19.90 Unspecified osteoarthritis, unspecified site; E11.9 Type 2 diabetes mellitus without complications; Z79.01 Long term (current) use of anticoagulants; Z79.02 Long term (current) use of antithrombotics/antiplatelets; Z79.82 Long term (current) use of aspirin; Z79.899 Other long term (current) drug therapy
CPT/HCPCS: 36415; 71045; 80053; 80307; 83735; 84484; 85025; 93005; 96372; 99285; A9270; J2270; 93010; 99284

== ENCOUNTER 2020-11-04 12:05 | Observation (INO) | payer MEDICARE ==
--- NOTE | 2020-11-04 12:27 | EDM.PDOC ---
ED HPI GENERAL MEDICAL PROBLEM - General Chief Complaint: Chest Pain Stated Complaint: CHEST PAIN Time Seen by Provider: 11/04/20 12:24 Source of Information: Reports: Patient, EMS History Limitations: Reports: No Limitations - History of Present Illness INITIAL COMMENTS - FREE TEXT/NARRATIVE: Patient is a 75-year-old male with history of stents presents today for left- sided chest pain. Patient is he has recurrent chest pain almost daily and schedule have a stress test within the next week for this recurrent chest pain. He states that he woke up around 11 AM with his pain in his left side that was sharp nonradiating not made worse or better with anything. Did not take any aspirin or other medicines morning just called our right away. EMS did give the patient aspirin and nitro before arrival so the pain from a 10-10 to 8 out of 10. Denies any shortness of breath leg swelling fever chills or other symptoms. CHest Pain Score (Numeric/FACES): 5 - Related Data Allergies Allergy/AdvReac Type Severity Reaction Status Date / Time No Known Allergies Allergy Verified 11/04/20 12:12 Home Meds: Home Meds Pantoprazole [ProTONIX] 40 mg PO DAILY 09/22/16 [History] Pravastatin [Pravachol] 80 mg PO BEDTIME 09/22/16 [History] Clopidogrel [Plavix] 75 mg PO DAILY 04/19/17 [History] PARoxetine [Paxil] 40 mg PO BEDTIME 04/19/17 [History] Aspirin [Halfprin] 81 mg PO DAILY #0 tab.ec 04/20/17 [Rx] Nitroglycerin [Nitrostat] 0.4 mg SL Q5M PRN MDD 3 03/07/18 [History] Ranolazine [Ranexa] 500 mg PO BID 01/14/19 [History] levETIRAcetam [Levetiracetam] 500 mg PO BID 01/14/19 [History] carvediloL [Carvedilol] 3.125 mg PO BIDMEALS 04/19/20 [History] Past Medical History - Past Health History Medical/Surgical History: Denies Medical/Surgical History HEENT History: Reports: Other (See Below) Other HEENT History: uses reading glasses Cardiovascular History: Reports: CAD, High Cholesterol, Hypertension, [place], Stents, Other (See Below) Other Cardiovascular History: [place] in 2009 Respiratory History: Reports: None Gastrointestinal History: Reports: None Genitourinary History: Reports: None Musculoskeletal History: Reports: None Other Musculoskeletal History: has arthritis in back Neurological History: Reports: Vertigo, Other (See Below) Other Neuro History: hx of Claustrophobia Psychiatric History: Reports: Anxiety, Depression, Other (See Below) Other Psychiatric History: Claustrophobia 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, Type II 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 Hematologic History: Reports: Anticoagulation Therapy Immunologic History: Reports: None Oncologic (Cancer) History: Reports: None Dermatologic History: Reports: None - Infectious Disease History Infectious Disease History: Reports: Chicken Pox, Measles, Mumps - Past Surgical History Head Surgeries/Procedures: Reports: None HEENT Surgical History: Reports: Oral Surgery, Tonsillectomy, Other (See Below) Other HEENT Surgeries/Procedures: dental extractions, enlarged lymph nodes removed from neck Cardiovascular Surgical History: Reports: Coronary Artery Stent Other Cardiovascular Surgeries/Procedures: Stents x3 Respiratory Surgical History: Reports: None GI Surgical History: Reports: Appendectomy Male Surgical History: Reports: None Endocrine Surgical History: Reports: None Musculoskeletal Surgical History: Reports: None Oncologic Surgical History: Reports: None Dermatological Surgical History: Reports: None Social & Family History - Family History Family Medical History: No Pertinent Family History Cardiac: Reports: [place] Respiratory: Reports: None Endocrine/Metabolic: Reports: Diabetes, Type I Hematologic: Reports: None Oncologic: Reports: Other (See Below) Other Oncologic Family History: Father side has cancer but patient doesn't know exactly what kind of CA - Tobacco Use Tobacco Use Status *Q: Never Tobacco User - Caffeine Use Caffeine Use: Reports: None Other Caffeine Use: decaf Caffeine Use Comment: daily - Recreational Drug Use Recreational Drug Use: No - Living Situation & Occupation Living situation: Reports: Occupation: Retired ED ROS GENERAL - Review of Systems Review Of Systems: See Below Constitutional: Reports: No Symptoms HEENT: Reports: No Symptoms Respiratory: Reports: No Symptoms Cardiovascular: Reports: Chest Pain Endocrine: Reports: No Symptoms GI/Abdominal: Reports: No Symptoms : Reports: No Symptoms Musculoskeletal: Reports: No Symptoms Skin: Reports: No Symptoms Neurological: Reports: No Symptoms Psychiatric: Reports: No Symptoms Hematologic/Lymphatic: Reports: No Symptoms Immunologic: Reports: No Symptoms ED EXAM, GENERAL - Physical Exam Exam: See Below Exam Limited By: No Limitations General Appearance: Alert, WD/WN, No Apparent Distress Eye Exam: Bilateral Eye: EOMI, PERRL Respiratory/Chest: No Respiratory Distress, Lungs Clear, Normal Breath Sounds Cardiovascular: Normal Peripheral Pulses, Regular Rate, Rhythm, No Edema GI/Abdominal: Normal Bowel Sounds, Soft, Non-Tender Extremities: Normal Inspection, Normal Range of Motion Neurological: Alert, Oriented, CN II-XII Intact, Normal Cognition, Normal Gait, Normal Reflexes #1 Interpretation EKG Date: 11/04/20 Time: 12:07 Rhythm: NSR Rate (Beats/Min): 87 ST-T: Normal Course - Vital Signs Last Recorded V/S: Last Vital Signs Temp 96.7 F L 11/04/20 12:12 Pulse 68 11/04/20 15:26 Resp 20 11/04/20 15:26 BP 121/74 11/04/20 15:26 Pulse Ox 98 11/04/20 15:26 - Orders/Labs/Meds Orders: Active Orders 24 hr Category Date Time Status Patient Status [ADT] Routine ADT 11/04/20 15:39 Ordered EKG Documentation Completion [RC] STAT Care 11/04/20 12:24 Active Labs: Laboratory Tests 11/04/20 11/04/20 11/04/20 Range/Units 12:00 12:00 12:00 WBC 5.47 (4.0-11.0) K/uL RBC 4.61 (4.50-5.90) M/uL Hgb 13.1 (13.0-17.0) g/dL Hct 39.7 (38.0-50.0) % MCV 86.1 (80.0-98.0) fL MCH 28.4 (27.0-32.0) pg MCHC 33.0 (31.0-37.0) g/dL RDW Std Deviation 47.3 (28.0-62.0) fl RDW Coeff of Ethan 15 (11.0-15.0) % Plt Count 267 (150-400) K/uL MPV 10.30 (7.40-12.00) fL Neut % (Auto) 62.7 (48.0-80.0) % Lymph % (Auto) 24.1 (16.0-40.0) % Crosby % (Auto) 11.2 (0.0-15.0) % Eos % (Auto) 1.6 (0.0-7.0) % Baso % (Auto) 0.4 (0.0-1.5) % Neut # (Auto) 3.4 (1.4-5.7) K/uL Lymph # (Auto) 1.3 (0.6-2.4) K/uL Crosby # (Auto) 0.6 (0.0-0.8) K/uL Eos # (Auto) 0.1 (0.0-0.7) K/uL Baso # (Auto) 0.0 (0.0-0.1) K/uL Nucleated RBC % 0.0 /100WBC Nucleated RBCs # 0 K/uL INR 1.02 APTT 24.1 (18.6-31.3) SEC Sodium 142 (136-148) mmol/L Potassium 3.7 (3.5-5.1) mmol/L Chloride 104 (98-107) mmol/L Carbon Dioxide 26.1 (21.0-32.0) mmol/L BUN 18 (7.0-18.0) mg/dL Creatinine 1.1 (0.8-1.3) mg/dL Est Cr Clr Drug Dosing 55.92 mL/min Estimated GFR (MDRD) > 60.0 ml/min Glucose 124 H (74-106) mg/dL Calcium 8.7 (8.5-10.1) mg/dL Phosphorus 2.5 L (2.6-4.7) mg/dL Magnesium 1.7 L (1.8-2.4) mg/dL Total Bilirubin 0.5 (0.2-1.0) mg/dL AST 15 (15-37) IU/L ALT 18 (14-63) IU/L Alkaline Phosphatase 83 (46-116) U/L Creatine Kinase 63 (26-308) U/L Troponin I < 0.050 (0.000-0.056) ng/mL Total Protein 7.2 (6.4-8.2) g/dL Albumin 3.8 (3.4-5.0) g/dL Globulin 3.4 (2.6-4.0) g/dL Albumin/Globulin Ratio 1.1 (0.9-1.6) Lipase 44 L (73-393) U/L SARS-CoV-2 RNA (WENDY) (NEGATIVE) 11/04/20 11/04/20 Range/Units 13:20 15:01 WBC (4.0-11.0) K/uL RBC (4.50-5.90) M/uL Hgb (13.0-17.0) g/dL Hct (38.0-50.0) % MCV (80.0-98.0) fL MCH (27.0-32.0) pg MCHC (31.0-37.0) g/dL RDW Std Deviation (28.0-62.0) fl RDW Coeff of Ethan (11.0-15.0) % Plt Count (150-400) K/uL MPV (7.40-12.00) fL Neut % (Auto) (48.0-80.0) % Lymph % (Auto) (16.0-40.0) % Crosby % (Auto) (0.0-15.0) % Eos % (Auto) (0.0-7.0) % Baso % (Auto) (0.0-1.5) % Neut # (Auto) (1.4-5.7) K/uL Lymph # (Auto) (0.6-2.4) K/uL Crosby # (Auto) (0.0-0.8) K/uL Eos # (Auto) (0.0-0.7) K/uL Baso # (Auto) (0.0-0.1) K/uL Nucleated RBC % /100WBC Nucleated RBCs # K/uL INR APTT (18.6-31.3) SEC Sodium (136-148) mmol/L Potassium (3.5-5.1) mmol/L Chloride (98-107) mmol/L Carbon Dioxide (21.0-32.0) mmol/L BUN (7.0-18.0) mg/dL Creatinine (0.8-1.3) mg/dL Est Cr Clr Drug Dosing mL/min Estimated GFR (MDRD) ml/min Glucose (74-106) mg/dL Calcium (8.5-10.1) mg/dL Phosphorus (2.6-4.7) mg/dL Magnesium (1.8-2.4) mg/dL Total Bilirubin (0.2-1.0) mg/dL AST (15-37) IU/L ALT (14-63) IU/L Alkaline Phosphatase (46-116) U/L Creatine Kinase (26-308) U/L Troponin I < 0.050 (0.000-0.056) ng/mL Total Protein (6.4-8.2) g/dL Albumin (3.4-5.0) g/dL Globulin (2.6-4.0) g/dL Albumin/Globulin Ratio (0.9-1.6) Lipase (73-393) U/L SARS-CoV-2 RNA (WENDY) NEGATIVE (NEGATIVE) Meds: Medications Discontinued Medications Generic Name Dose Route Start Last Admin Trade Name Tenisha PRN Reason Stop Dose Admin Morphine Sulfate 4 mg 11/04/20 12:39 11/04/20 12:49 Morphine 4 Mg/Ml Syringe IVPUSH 11/04/20 12:40 4 mg ONETIME ONE Administration Morphine Sulfate 4 mg 11/04/20 12:46 11/04/20 12:50 Morphine 4 Mg/Ml Syringe IVPUSH 11/04/20 12:47 Not Given ONETIME ONE Departure - Departure Time of Disposition: 15:40 Disposition: Refer to Observation Condition: Good Clinical Impression: Chest pain Qualifiers: Chest pain type: unspecified Qualified Code(s): R07.9 - Chest pain, unspecified Instructions: Nonspecific Chest Pain, Adult Forms: ED Department Discharge Sepsis Event Note (ED) - Evaluation Sepsis Screening Result: No Definite Risk - Focused Exam Vital Signs: Vital Signs Temp Pulse Resp BP Pulse Ox 11/04/20 15:26 68 20 121/74 98 11/04/20 14:35 75 18 112/75 98 11/04/20 14:05 78 18 116/80 98 11/04/20 13:18 82 18 122/82 98 11/04/20 12:50 72 20 126/84 98 11/04/20 12:12 96.7 F L 103 H 18 114/81 97 - My Orders Last 24 Hours: My Active Orders 11/04/20 12:24 EKG Documentation Completion [RC] STAT 11/04/20 15:39 Patient Status [ADT] Routine - Assessment/Plan Last 24 Hours: My Active Orders 11/04/20 12:24 EKG Documentation Completion [RC] STAT 11/04/20 15:39 Patient Status [ADT] Routine Plan: Patient is a 75-year-old male who presents today for left-sided chest pain. Patient's heart score is a 4. Patient will have EKG labs x-ray and reassess.
[2020-11-04] MEDS ORDERED: Morphine 4 MG/ML Syringe IVPUSH ONE ×2 (12:39→12:46)
[2020-11-04 13:04] LABS: BLOOD UREA NITROGEN,BUN 18 mg/dL (7.0-18.0); CARBON DIOXIDE,CO2 26.1 mmol/L (21.0-32.0); CHLORIDE,CL 104 mmol/L (98-107); GLUCOSE RANDOM 124 mg/dL (74-106); LIPASE 44 U/L (73-393); POTASSIUM,K 3.7 mmol/L (3.5-5.1); SODIUM,NA 142 mmol/L (136-148)
--- NOTE | 2020-11-04 13:49 | CR ---
Indication: Chest Pain Comparison: Two-view ribs August 06, 2020 Technique: Single AP view chest Findings: There is hyperinflation and chronic interstitial change. There is no focal consolidation, effusion, or pneumothorax. The cardiac silhouette is mildly prominent with a tortuous thoracic aorta. The bony thorax is grossly intact. Impression: Hyperinflation and chronic interstitial change without dense consolidation. Dictated by Inderjit Hall MD @ 11/04/2020 1:47:[address] Inderjit Hall @ Nov 04 2020 1:47PM
[2020-11-04] MEDS ORDERED: Albuterol/Ipratropium 3.0-0.5 MG/3 ML Neb Soln NEB PRN (17:31)
[2020-11-04] MEDS ORDERED: Ondansetron 4 MG/2 ML SDV IVPUSH PRN (17:31)
[2020-11-04] MEDS ORDERED: Nitroglycerin 0.4 MG Tab.SL SL PRN (17:34)
--- NOTE | 2020-11-04 17:39 | PCM.HP.2 ---
H&P History of Present Illness - General Date of Service: 11/04/20 Admit Problem/Dx: Admission Diagnosis/Problem Admission Diagnosis/Problem Chest pain in adult - History of Present Illness Initial Comments - Free Text/Narative: Patient is a 75-year-old male with past medical history of coronary artery disease status post stent placement who comes in for evaluation of left-sided chest pain. Patient states that his chest pain woke him up from sleep at 11 AM this morning, he describes the pain as sharp nonradiating, no alleviating or aggravating factors. Patient did not take any aspirin or nitro and called for help right away. Patient has recurrent history of chest pain almost daily and is scheduled to have a stress test next week for recurrent chest pain. Reportedly EMS did give the patient aspirin and nitro before arrival , with mild improvement in his pain. Patient states after his discharge from last admission he has been taking his medications, denies any shortness of breath leg swelling fever chills or other symptoms. In the ER EKG did not show any acute ischemic changes, troponin was negative. Patient was admitted to the hospital for ACS rule out. CHest Pain Score (Numeric/FACES): 5 - Related Data Allergies/Adverse Reactions: Allergies Allergy/AdvReac Type Severity Reaction Status Date / Time No Known Allergies Allergy Verified 11/04/20 17:50 Home Medications: Home Meds Pantoprazole [ProTONIX] 40 mg PO DAILY 09/22/16 [History] Pravastatin [Pravachol] 80 mg PO BEDTIME 09/22/16 [History] Clopidogrel [Plavix] 75 mg PO DAILY 04/19/17 [History] PARoxetine [Paxil] 40 mg PO BEDTIME 04/19/17 [History] Aspirin [Halfprin] 81 mg PO DAILY #0 tab.ec 04/20/17 [Rx] Nitroglycerin [Nitrostat] 0.4 mg SL Q5M PRN MDD 3 03/07/18 [History] Ranolazine [Ranexa] 500 mg PO BID 01/14/19 [History] levETIRAcetam [Levetiracetam] 500 mg PO BID 01/14/19 [History] carvediloL [Carvedilol] 3.125 mg PO BIDMEALS 04/19/20 [History] Past Medical History - Past Health History Medical/Surgical History: Denies Medical/Surgical History HEENT History: Reports: Other (See Below) Other HEENT History: uses reading glasses Cardiovascular History: Reports: CAD, High Cholesterol, Hypertension, [place], Stents, Other (See Below) Other Cardiovascular History: [place] in 2010 Respiratory History: Reports: None Gastrointestinal History: Reports: None Genitourinary History: Reports: None Musculoskeletal History: Reports: None Other Musculoskeletal History: has arthritis in back Neurological History: Reports: Vertigo, Other (See Below) Other Neuro History: hx of Claustrophobia Psychiatric History: Reports: Anxiety, Depression, Other (See Below) Other Psychiatric History: Claustrophobia 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, Type II 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 Model 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: 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 Hematologic History: Reports: Anticoagulation Therapy Immunologic History: Reports: None Oncologic (Cancer) History: Reports: None Dermatologic History: Reports: None - Infectious Disease History Infectious Disease History: Reports: Chicken Pox, Measles, Mumps - Past Surgical History Head Surgeries/Procedures: Reports: None HEENT Surgical History: Reports: Oral Surgery, Tonsillectomy, Other (See Below) Other HEENT Surgeries/Procedures: dental extractions, enlarged lymph nodes removed from neck Cardiovascular Surgical History: Reports: Coronary Artery Stent Other Cardiovascular Surgeries/Procedures: Stents x3 Respiratory Surgical History: Reports: None GI Surgical History: Reports: Appendectomy Male Surgical History: Reports: None Endocrine Surgical History: Reports: None Musculoskeletal Surgical History: Reports: None Oncologic Surgical History: Reports: None Dermatological Surgical History: Reports: None Social & Family History - Family History Family Medical History: No Pertinent Family History Cardiac: Reports: KS Respiratory: Reports: None Endocrine/Metabolic: Reports: Diabetes, Type I Hematologic: Reports: None Oncologic: Reports: Other (See Below) Other Oncologic Family History: Father side has cancer but patient doesn't know exactly what kind of CA - Tobacco Use Tobacco Use Status *Q: Never Tobacco User - Caffeine Use Caffeine Use: Reports: None Other Caffeine Use: decaf Caffeine Use Comment: daily - Recreational Drug Use Recreational Drug Use: No - Living Situation & Occupation Living situation: Reports: Occupation: Retired H&P Review of Systems - Review of Systems: Review Of Systems: See Below General: Denies: Fever, Chills, Malaise Pulmonary: Denies: Shortness of Breath, Wheezing Cardiovascular: Reports: Chest Pain. Denies: Palpitations, Dyspnea on Exertion, Orthopnea, Claudication Gastrointestinal: Denies: Abdominal Pain, Anorexia, Black Stool, Distension, Fl atus, Hematemesis Genitourinary: Denies: Dysuria, Frequency, Burning Musculoskeletal: Denies: Neck Pain, Shoulder Pain, Arm Pain Skin: Denies: Cyanosis, Jaundice, Mottled Psychiatric: Denies: Confusion, Depression, Mood Lability Neurological: Denies: Confusion, Dizziness, Headache, Numbness Exam - Exam Exam: See Below - Vital Signs Vital Signs: Last Vital Signs Temp 35.9 C L 11/04/20 17:22 Pulse 79 11/04/20 17:22 Resp 17 11/04/20 17:22 BP 114/73 11/04/20 17: Pulse Ox 97 11/04/20 17:22 Weight: 70.307 kg - Exam General: Alert, Oriented Neck: Supple, Trachea Midline Lungs: Clear to Auscultation, Normal Respiratory Effort Cardiovascular: Regular Rate, Regular Rhythm, Normal S1 GI/Abdominal Exam: Normal Bowel Sounds, Soft, Non-Tender Peripheral Pulses: 3+: Dorsalis Pedis (L), Dorsalis Pedis (R) Skin: Warm, Dry, Intact - Patient Data Lab Results Last 24 hrs: Laboratory Results - last 24 hr 11/04/20 11/04/20 11/04/20 Range/Units 12:00 12:00 12:00 WBC 5.47 (4.0-11.0) K/uL RBC 4.61 (4.50-5.90) M/uL Hgb 13.1 (13.0-17.0) g/dL Hct 39.7 (38.0-50.0) % MCV 86.1 (80.0-98.0) fL MCH 28.4 (27.0-32.0) pg MCHC 33.0 (31.0-37.0) g/dL RDW Std Deviation 47.3 (28.0-62.0) fl RDW Coeff of Ethan 15 (11.0-15.0) % Plt Count 267 (150-400) K/uL MPV 10.30 (7.40-12.00) fL Neut % (Auto) 62.7 (48.0-80.0) % Lymph % (Auto) 24.1 (16.0-40.0) % [place]oto % (Auto) 11.2 (0.0-15.0) % Eos % (Auto) 1.6 (0.0-7.0) % Baso % (Auto) 0.4 (0.0-1.5) % Neut # (Auto) 3.4 (1.4-5.7) K/uL Lymph # (Auto) 1.3 (0.6-2.4) K/uL [place] # (Auto) 0.6 (0.0-0.8) K/uL Eos # (Auto) 0.1 (0.0-0.7) K/uL Baso # (Auto) 0.0 (0.0-0.1) K/uL Nucleated RBC % 0.0 /100WBC Nucleated RBCs # 0 K/uL INR 1.02 APTT 24.1 (18.6-31.3) SEC Sodium 142 (136-148) mmol/L Potassium 3.7 (3.5-5.1) mmol/L Chloride 104 (98-107) mmol/L Carbon Dioxide 26.1 (21.0-32.0) mmol/L BUN 18 (7.0-18.0) mg/dL Creatinine 1.1 (0.8-1.3) mg/dL Est Cr Clr Drug Dosing 55.92 mL/min Estimated GFR (MDRD) > 60.0 ml/min Glucose 124 H (74-106) mg/dL Calcium 8.7 (8.5-10.1) mg/dL Phosphorus 2.5 L (2.6-4.7) mg/dL Magnesium 1.7 L (1.8-2.4) mg/dL Total Bilirubin 0.5 (0.2-1.0) mg/dL AST 15 (15-37) IU/L ALT 18 (14-63) IU/L Alkaline Phosphatase 83 (46-116) U/L Creatine Kinase 63 (26-308) U/L Troponin I < 0.050 (0.000-0.056) ng/mL Total Protein 7.2 (6.4-8.2) g/dL Albumin 3.8 (3.4-5.0) g/dL Globulin 3.4 (2.6-4.0) g/dL Albumin/Globulin Ratio 1.1 (0.9-1.6) Lipase 44 L (73-393) U/L SARS-CoV-2 RNA (WENDY) (NEGATIVE) 11/04/20 11/04/20 Range/Units 13:20 15:01 WBC (4.0-11.0) K/uL RBC (4.50-5.90) M/uL Hgb (13.0-17.0) g/dL Hct (38.0-50.0) % MCV (80.0-98.0) fL MCH (27.0-32.0) pg MCHC (31.0-37.0) g/dL RDW Std Deviation (28.0-62.0) fl RDW Coeff of Ethan (11.0-15.0) % Plt Count (150-400) K/uL MPV (7.40-12.00) fL Neut % (Auto) (48.0-80.0) % Lymph % (Auto) (16.0-40.0) % [place]oto % (Auto) (0.0-15.0) % Eos % (Auto) (0.0-7.0) % Baso % (Auto) (0.0-1.5) % Neut # (Auto) (1.4-5.7) K/uL Lymph # (Auto) (0.6-2.4) K/uL Desoto # (Auto) (0.0-0.8) K/uL Eos # (Auto) (0.0-0.7) K/uL Baso # (Auto) (0.0-0.1) K/uL Nucleated RBC % /100WBC Nucleated RBCs # K/uL INR APTT (18.6-31.3) SEC Sodium (136-148) mmol/L Potassium (3.5-5.1) mmol/L Chloride (98-107) mmol/L Carbon Dioxide (21.0-32.0) mmol/L BUN (7.0-18.0) mg/dL Creatinine (0.8-1.3) mg/dL Est Cr Clr Drug Dosing mL/min Estimated GFR (MDRD) ml/min Glucose (74-106) mg/dL Calcium (8.5-10.1) mg/dL Phosphorus (2.6-4.7) mg/dL Magnesium (1.8-2.4) mg/dL Total Bilirubin (0.2-1.0) mg/dL AST (15-37) IU/L ALT (14-63) IU/L Alkaline Phosphatase (46-116) U/L Creatine Kinase (26-308) U/L Troponin I < 0.050 (0.000-0.056) ng/mL Total Protein (6.4-8.2) g/dL Albumin (3.4-5.0) g/dL Globulin (2.6-4.0) g/dL Albumin/Globulin Ratio (0.9-1.6) Lipase (73-393) U/L SARS-CoV-2 RNA (WENDY) NEGATIVE (NEGATIVE) Result Diagrams: 11/04/20 12:00 11/04/20 12:00 Sepsis Event Note - Evaluation Sepsis Screening Result: No Definite Risk - Focused Exam Vital Signs: Vital Signs Temp Pulse Resp BP Pulse Ox 11/04/20 17:22 35.9 C L 79 17 114/73 97 11/04/20 16:50 82 18 118/71 98 11/04/20 15:26 68 20 121/74 98 11/04/20 14:35 75 18 112/75 98 11/04/20 14:05 78 18 116/80 98 11/04/20 13:18 82 18 122/82 98 11/04/20 12:50 72 20 126/84 98 11/04/20 12:12 35.9 C L 103 H 18 114/81 97 - Problem List (1) History of coronary angioplasty with insertion of stent SNOMED Code(s): 270914176, 608570031, 776072777 ICD Code: Z95.5 - PRESENCE OF CORONARY ANGIOPLASTY IMPLANT AND GRAFT Status: Acute Current Visit: Yes (2) Chest pain SNOMED Code(s): 34922285 ICD Code: R07.9 - CHEST PAIN, UNSPECIFIED Status: Acute Current Visit: Yes Qualifiers: Chest pain type: unspecified Qualified Code(s): R07.9 - Chest pain, unspecified (3) Angina pectoris SNOMED Code(s): 426152870 ICD Code: I20.9 - ANGINA PECTORIS, UNSPECIFIED Status: Acute Current Visit: No (4) History of coronary artery disease SNOMED Code(s): 793093452 ICD Code: Z86.79 - PERSONAL HISTORY OF OTHER DISEASES OF THE CIRCULATORY SYSTEM Status: Acute Current Visit: No (5) Non compliance with medical treatment SNOMED Code(s): 5219623 ICD Code: Z91.19 - PATIENT'S NONCOMPLIANCE W OTH MEDICAL TREATMENT AND REGIMEN Status: Acute Current Visit: No Problem List Initiated/Reviewed/Updated: Yes Orders Last 24hrs: Active Orders 24 hr Category Date Time Status Patient Status [ADT] Routine ADT 11/04/20 15:39 Active Ambulate [RC] ASDIRECTED Care 11/04/20 17:31 Active Antiembolic Devices [RC] PER UNIT ROUTINE Care 11/04/20 17:33 Active EKG Documentation Completion [RC] STAT Care 11/04/20 12:24 Active Oxygen Therapy [RC] PRN Care 11/04/20 17:31 Active Pulse Oximetry [RC] PRN Care 11/04/20 17:32 Active RT Aerosol Therapy [RC] ASDIRECTED Care 11/04/20 17:33 Active VTE/DVT Education [RC] PER UNIT ROUTINE Care 11/04/20 17:31 Active Vital Signs [RC] Q4H Care 11/04/20 17:31 Active Heart Healthy Diet [DIET] Diet 11/04/20 Dinner Active TROPONIN I [CHEM] Stat Lab 11/04/20 17:31 Ordered Acetaminophen [TylenoL] Med 11/04/20 17:31 Active 650 mg PO Q4H PRN Albuterol/Ipratropium [DuoNeb 3.0-0.5 MG/3 ML] Med 11/04/20 17:31 Ordered 3 ml NEB Q4HRRT PRN Aspirin [Halfprin] Med 11/05/20 09:00 Ordered 81 mg PO DAILY Clopidogrel [Plavix] Med 11/04/20 17:45 Ordered 75 mg PO DAILY Nitroglycerin [Nitrostat] Med 11/04/20 17:34 Ordered 0.4 mg SL Q5M PRN Ondansetron [Zofran] Med 11/04/20 17:31 Ordered 4 mg IVPUSH Q4H PRN PARoxetine [Paxil] Med 11/04/20 21:00 Ordered 40 mg PO BEDTIME Pantoprazole [ProTONIX IV] 40 mg Med 11/04/20 17:35 Active Sodium Chloride 0.9% [Normal Saline] 10 ml IV DAILY Pravastatin [Pravachol] Med 11/04/20 21:00 Ordered 80 mg PO BEDTIME Ranolazine [Ranexa] Med 11/04/20 21:00 Ordered 500 mg PO BID carvediloL [Coreg] Med 11/05/20 08:00 Ordered 3.125 mg PO BIDMEALS levETIRAcetam [Levetiracetam] Med 11/04/20 17:45 Ordered 500 mg PO BID Sequential Compression Device [OM.PC] Per Unit Routine Oth 11/04/20 17:32 Ordered Resuscitation Status Routine Resus Stat 11/04/20 17:31 Ordered Medication Orders Acetaminophen (Acetaminophen 325 Mg Tab) 650 mg PO Q4H PRN PRN Reason: Pain (Mild 1-3)/fever Albuterol/Ipratropium (Albuterol/Ipratropium 3.0-0.5 Mg/3 Ml Neb Soln) 3 ml NEB Q4HRRT PRN PRN Reason: Shortness Of Breath/wheezing Pantoprazole Sodium 40 mg/ (Sodium Chloride) 10 mls @ 200 mls/hr IV DAILY ERICK Nitroglycerin (Nitroglycerin 0.4 Mg Tab.Sl) 0.4 mg SL Q5M PRN PRN Reason: Chest Pain Ondansetron HCl (Ondansetron 4 Mg/2 Ml Sdv) 4 mg IVPUSH Q4H PRN PRN Reason: Nausea/Vomiting Assessment/Plan Comment:: 75-year-old male admitted for ACS rule out Trend troponins x 3, every 3 hour Monitor on telemetry Oxygen as needed Sublingual nitro as needed for chest pain Continue home meds as appropriate Unsure if patient has been taking his oral nitro pills at home, he does have history of noncompliance from prior admissions Patient has a stress test scheduled 1 week from now Monitor and replete electrolytes as necessary 2D echo was done recently during last admission Possible DC tomorrow
[2020-11-04] MEDS ORDERED: Pantoprazole 40 MG Vial IV SCH (17:45)
[2020-11-04] MEDS: Acetaminophen 325 MG Tab PO PRN (18:11)
[2020-11-04] MEDS: Clopidogrel 75 MG Tab PO SCH (18:13)
[2020-11-04] MEDS: Pantoprazole 40 MG in Sodium Chloride 0.9% 10 ML IV SCH (18:13)
[2020-11-04] MEDS ORDERED: Pravastatin 40 MG Tab PO SCH (21:00)
[2020-11-04] MEDS ORDERED: PARoxetine 20 MG Tab PO SCH (21:00)
[2020-11-04] MEDS ORDERED: Magnesium Sulfate/Water 2 GM in Premix Bag 1 BAG IV ONE (21:08)
[2020-11-04] MEDS ORDERED: Phosphorus #1 250 MG Tab PO ONE (21:09)
[2020-11-04] MEDS: levETIRAcetam 500 MG Tab PO SCH (21:50)
[2020-11-05] MEDS: Acetaminophen 325 MG Tab PO PRN (03:02)
[2020-11-05] MEDS ORDERED: Carvedilol 3.125 MG Tab PO SCH (08:00)
[2020-11-05] MEDS: levETIRAcetam 500 MG Tab PO SCH (08:18)
[2020-11-05] MEDS: Clopidogrel 75 MG Tab PO SCH (08:19)
[2020-11-05] MEDS: Pantoprazole 40 MG in Sodium Chloride 0.9% 10 ML IV SCH (08:21)
[2020-11-05] MEDS ORDERED: Aspirin 81 MG Tab.EC PO SCH (09:00)
[2020-11-05] MEDS ORDERED: Morphine 2 MG/ML SYRINGE IVPUSH ONE (10:16)
[2020-11-05] MEDS ORDERED: Sodium Chloride 0.9% 500 ML IV ONE (10:17)
[2020-11-05 11:50] VITALS: BP 123/72; PULSE 58
--- NOTE | 2020-11-05 13:46 | PCM.DCSUM1 ---
Discharge Summary - Hospital Course Free Text/Narrative:: Patient is a 75-year-old male with past medical history of coronary artery disease status post stent placement who comes in for evaluation of left-sided chest pain. Patient states that his chest pain woke him up from sleep at 11 AM this morning, he describes the pain as sharp nonradiating, no alleviating or aggravating factors. Patient did not take any aspirin or nitro and called for help right away. Patient has recurrent history of chest pain almost daily and is scheduled to have a stress test next week for recurrent chest pain. Reportedly EMS did give the patient aspirin and nitro before arrival , with mild improvement in his pain. Patient states after his discharge from last admission he has been taking his medications, denies any shortness of breath leg swelling fever chills or other symptoms. In the ER EKG did not show any acute ischemic changes, troponin was negative. Patient was admitted to the hospital for ACS rule out. Upon exam the chest pain was mostly musculoskeletal in nature as it was tender on palpation. Patient was started on telemetry to watch for any arrhythmias, troponins were trended x3 all of which were negative. All his home meds were continued as appropriate, patient was not sure if he is taking his Ranexa at home and he does have a history of noncompliance from his prior admissions. Patient was thoroughly counseled about importance of taking his medications. Patient has a stress test scheduled 7 days from now which he was strongly advised to keep. 2D echo was not repeated at patient had a echo recently during his last admission. Patient was hemodynamically stable for discharge and recommended to keep his appointment for stress test and follow-up with his primary care doctor and cardiology upon discharge. Diagnosis: Stroke: No - Discharge Data Discharge Date: 11/05/20 Discharge Disposition: Home, Self-Care 01 Condition: Stable - Referral to Home Health Primary Care Physician: Vernell Donovan MD - Discharge Diagnosis/Problem(s) (1) History of coronary angioplasty with insertion of stent SNOMED Code(s): 323447616, 349657757, 787983063 ICD Code: Z95.5 - PRESENCE OF CORONARY ANGIOPLASTY IMPLANT AND GRAFT Status: Acute (2) Chest pain SNOMED Code(s): 79206930 ICD Code: R07.9 - CHEST PAIN, UNSPECIFIED Status: Acute Qualifiers: Chest pain type: unspecified Qualified Code(s): R07.9 - Chest pain, unspecified (3) Angina pectoris SNOMED Code(s): 969226564 ICD Code: I20.9 - ANGINA PECTORIS, UNSPECIFIED Status: Acute (4) History of coronary artery disease SNOMED Code(s): 732426840 ICD Code: Z86.79 - PERSONAL HISTORY OF OTHER DISEASES OF THE CIRCULATORY SYSTEM Status: Acute (5) Non compliance with medical treatment SNOMED Code(s): 3330117 ICD Code: Z91.19 - PATIENT'S NONCOMPLIANCE W OTH MEDICAL TREATMENT AND REGIMEN Status: Acute - Patient Instructions Diet: Heart Healthy Diet Activity: No Strenuous Activities Showering/Bathing: May Shower Notify Provider of: Fever, Increased Pain, Swelling and Redness, Drainage, Nausea and/or Vomiting - Discharge Plan *PRESCRIPTION DRUG MONITORING PROGRAM REVIEWED*: Not Applicable *COPY OF PRESCRIPTION DRUG MONITORING REPORT IN PATIENT SWEETIE: Not Applicable Home Medications: Home Meds Pantoprazole [ProTONIX] 40 mg PO DAILY 09/22/16 [History] Pravastatin [Pravachol] 80 mg PO BEDTIME 09/22/16 [History] Clopidogrel [Plavix] 75 mg PO DAILY 04/19/17 [History] PARoxetine [Paxil] 40 mg PO BEDTIME 04/19/17 [History] Aspirin [Halfprin] 81 mg PO DAILY #0 tab.ec 04/20/17 [Rx] Nitroglycerin [Nitrostat] 0.4 mg SL Q5M PRN MDD 3 03/07/18 [History] Ranolazine [Ranexa] 500 mg PO BID 01/14/19 [History] levETIRAcetam [Levetiracetam] 500 mg PO BID 01/14/19 [History] carvediloL [Carvedilol] 3.125 mg PO BIDMEALS 04/19/20 [History] Oxygen Therapy Mode: Room Air Patient Handouts: Nonspecific Chest Pain, Adult Referrals: Yaniv Sevilla MD [Physician] - 11/18/20 1:30 pm - Discharge Summary/Plan Comment DC Time >30 min.: No - Patient Data Vitals - Most Recent: Last Vital Signs Temp 35.6 C L 11/05/20 11:49 Pulse 58 L 11/05/20 11:49 Resp 22 H 11/05/20 11:49 BP 123/72 11/05/20 11:49 Pulse Ox 97 11/05/20 11:49 Weight - Most Recent: 69.354 kg I&O - Last 24 hours: Intake & Output 11/04/20 11/05/20 11/05/20 22:59 06:59 14:59 Intake Total 100 Output Total 0 Balance 100 Lab Results - Last 24 hrs: Laboratory Results - last 24 hr 11/04/20 11/04/20 11/04/20 Range/Units 13:20 15:01 17:41 Troponin I < 0.050 < 0.050 (0.000-0.056) ng/mL PSA Screen (0.05-4.00) ng/mL Urine Color Urine Appearance Urine pH (5.0-8.0) Ur Specific Olla (1.001-1.035) Urine Protein (NEGATIVE) mg/dL Urine Glucose (UA) (NEGATIVE) mg/dL Urine Ketones (NEGATIVE) mg/dL Urine Occult Blood (NEGATIVE) Urine Nitrite (NEGATIVE) Urine Bilirubin (NEGATIVE) Urine Urobilinogen (<2.0) EU/dL Ur Leukocyte Esterase (NEGATIVE) SARS-CoV-2 RNA (WENDY) NEGATIVE (NEGATIVE) 11/05/20 11/05/20 11/05/20 Range/Units 10:40 11:05 11:05 Troponin I < 0.050 (0.000-0.056) ng/mL PSA Screen 1.52 (0.05-4.00) ng/mL Urine Color DARK YELLOW Urine Appearance CLEAR Urine pH 6.0 (5.0-8.0) Ur Specific Olla >= 1.030 (1.001-1.035) Urine Protein NEGATIVE (NEGATIVE) mg/dL Urine Glucose (UA) NEGATIVE (NEGATIVE) mg/dL Urine Ketones NEGATIVE (NEGATIVE) mg/dL Urine Occult Blood NEGATIVE (NEGATIVE) Urine Nitrite NEGATIVE (NEGATIVE) Urine Bilirubin NEGATIVE (NEGATIVE) Urine Urobilinogen 1.0 (<2.0) EU/dL Ur Leukocyte Esterase NEGATIVE (NEGATIVE) SARS-CoV-2 RNA (WENDY) (NEGATIVE) Med Orders - Current: Current Medications Acetaminophen (Acetaminophen 325 Mg Tab) 650 mg PO Q4H PRN PRN Reason: Pain (Mild 1-3)/fever Last Admin: 11/05/20 03:02 Dose: 650 mg Documented by: Albuterol/Ipratropium (Albuterol/Ipratropium 3.0-0.5 Mg/3 Ml Neb Soln) 3 ml NEB Q4HRRT PRN PRN Reason: Shortness Of Breath/wheezing Aspirin (Aspirin 81 Mg Tab.Ec) 81 mg PO DAILY [facility] Last Admin: 11/05/20 08:19 Dose: 81 mg Documented by: Carvedilol (Carvedilol 3.125 Mg Tab) 3.125 mg PO BIDMEALS [facility] Last Admin: 11/05/20 07:42 Dose: 3.125 mg Documented by: Clopidogrel Bisulfate (Clopidogrel 75 Mg Tab) 75 mg PO DAILY [facility] Last Admin: 11/05/20 08:19 Dose: 75 mg Documented by: Pantoprazole Sodium 40 mg/ (Sodium Chloride) 10 mls @ 200 mls/hr IV DAILY [facility] Last Admin: 11/05/20 08:21 Dose: 200 mls/hr Documented by: Levetiracetam (Levetiracetam 500 Mg Tab) 500 mg PO BID [facility] Last Admin: 11/05/20 08:18 Dose: 500 mg Documented by: Nitroglycerin (Nitroglycerin 0.4 Mg Tab.Sl) 0.4 mg SL Q5M PRN PRN Reason: Chest Pain Ondansetron HCl (Ondansetron 4 Mg/2 Ml Sdv) 4 mg IVPUSH Q4H PRN PRN Reason: Nausea/Vomiting Paroxetine HCl (Paroxetine 20 Mg Tab) 40 mg PO BEDTIME [facility] Last Admin: 11/04/20 21:51 Dose: 40 mg Documented by: Pravastatin Sodium (Pravastatin 40 Mg Tab) 80 mg PO BEDTIME [facility] Last Admin: 11/04/20 21:57 Dose: 80 mg Documented by: Ranolazine (Ranolazine 500 Mg Tab.Er) 500 mg PO BID [facility] Last Admin: 11/05/20 08:18 Dose: 500 mg Documented by: Discontinued Medications Magnesium Sulfate 2 gm/ Premix 50 mls @ 25 mls/hr IV ONETIME ONE Stop: 11/04/20 23:07 Last Admin: 11/04/20 21:49 Dose: 25 mls/hr Documented by: Sodium Chloride (Normal Saline) 500 mls @ 250 mls/hr IV ONETIME ONE Stop: 11/05/20 12:16 Morphine Sulfate (Morphine 4 Mg/Ml Syringe) 4 mg IVPUSH ONETIME ONE Stop: 11/04/20 12:40 Last Admin: 11/04/20 12:49 Dose: 4 mg Documented by: Morphine Sulfate (Morphine 4 Mg/Ml Syringe) 4 mg IVPUSH ONETIME ONE Stop: 11/04/20 12:47 Last Admin: 11/04/20 12:50 Dose: Not Given Documented by: Morphine Sulfate (Morphine 2 Mg/Ml Syringe) 1 mg IVPUSH ONETIME ONE Stop: 11/05/20 10:17 Last Admin: 11/05/20 10:45 Dose: 1 mg Documented by: Sodium Phosphate (Phosphorus #1 250 Mg Tab) 250 mg PO ONETIME ONE Stop: 11/04/20 21:10 Last Admin: 11/04/20 21:55 Dose: 250 mg Documented by:
== END 2020-11-05 14:19 | disposition home or self-care (01) ==
LOC: MW.ED 12:05 → MW.MS 15:39 → UNDOADMOB 16:29
PROVIDERS: ADMIT Student in an Organized Health Care Education/Training Program; ATTEND Student in an Organized Health Care Education/Training Program
DX: R07.9 Chest pain, unspecified (principal); I25.10 Atherosclerotic heart disease of native coronary artery without angina pectoris; E78.00 Pure hypercholesterolemia, unspecified; I10 Essential (primary) hypertension; I25.2 Old myocardial infarction; E11.9 Type 2 diabetes mellitus without complications; Z79.01 Long term (current) use of anticoagulants; Z95.5 Presence of coronary angioplasty implant and graft; Z86.79 Personal history of other diseases of the circulatory system; Z91.19 Patient's noncompliance with other medical treatment and regimen; Z20.822 Contact with and (suspected) exposure to COVID-19
CPT/HCPCS: 36415; 71045; 80053; 81003; 82550; 83690; 83735; 84100; 84484; 85025; 85610; 85730; 93005; 96374; 99285; A9270; C9113; G0103; J2270; J3475; U0002; 96365; 96366; 96375; 96376; G0378

== ENCOUNTER 2020-11-14 22:08 | Inpatient (IN) | payer MEDICARE ==
[2020-11-14] MEDS ORDERED: Sodium Chloride 0.9% 10 ML Syringe FLUSH PRN (22:16)
[2020-11-14] MEDS ORDERED: Morphine 4 MG/ML Syringe IVPUSH ONE (22:16)
[2020-11-14] MEDS ORDERED: Sodium Chloride 0.9% 2.5 ML Syringe FLUSH PRN (22:16)
--- NOTE | 2020-11-14 22:20 | EDM.PDOC ---
ED HPI GENERAL MEDICAL PROBLEM - General Chief Complaint: Chest Pain Stated Complaint: CHEST PAIN Time Seen by Provider: 11/14/20 22:10 Source of Information: Reports: Patient, EMS - History of Present Illness INITIAL COMMENTS - FREE TEXT/NARRATIVE: History of present illness: 74-year-old male brought by EMS presenting with left-sided chest pain. Described as stabbing. Started about 8:00 tonight. He did take aspirin and nitroglycerin but has not had any relief to his pain. He does report he has prior cardiac history. He had a stress test today and yesterday a treadmill stress test. He does not know the results. No shortness of breath or leg pain or swelling. Review of systems: As per history of present illness and below otherwise all systems reviewed and negative. Past medical history: As per history of present illness and as reviewed below otherwise noncontributory. Surgical history: As per history of present illness and as reviewed below otherwise noncontributory. Social history: No reported history of drug or alcohol abuse. Family history: As per history of present illness and as reviewed below otherwise noncontributory. Physical exam: GEN: no acute distress, well appearing HEENT: Atraumatic, normocephalic, mucous membranes moist, Neck: supple, nontender, trachea midline. Lungs: No respiratory distress. Heart: RRR Abdomen: Soft, nondistended, nontender. Back: nontender Extremities: Atraumatic. Neurovascularly intact. Neuro: Awake, alert, oriented. Neuro Exam nonfocal. Skin: warm, dry, no lesions Diagnostics: Labs, EKG, chest x-ray Initial and repeat troponin negative. Chest x-ray negative. EKG: Initial EKG November 14, 2020 at 10:05 PM, sinus rhythm, rate 96, incomplete left bundle branch block, low voltage leads, wavy baseline/artifact limits interpretation. No STEMI. Rhythm strip EKG performed at 10:25 AM on November 14, 2020. Rhythm strip performed. No apparent ischemia. Wavy baseline appears improved. Repeat EKG performed at 2:48 AM on November 15, 2020. Sinus rhythm, rate 69, nonspecific intraventricular conduction delay, no acute ischemia, no STEMI. Interpreted by me. Therapeutics: Took aspirin prior to arrival here, nitro, morphine MDM: Chest pain, cardiac risk factors. Initial and repeat troponin negative. Will admit. Impression: Chest pain Plan: [] Definitive disposition and diagnosis as appropriate pending reevaluation and re view of above. Right Chest Pain Score (Numeric/FACES): 5 - Related Data Allergies Allergy/AdvReac Type Severity Reaction Status Date / Time No Known Allergies Allergy Verified 11/04/20 17:50 Home Meds: Home Meds Pantoprazole [ProTONIX] 40 mg PO DAILY 09/22/16 [History] Pravastatin [Pravachol] 80 mg PO BEDTIME 09/22/16 [History] Clopidogrel [Plavix] 75 mg PO DAILY 04/19/17 [History] PARoxetine [Paxil] 40 mg PO BEDTIME 04/19/17 [History] Aspirin [Halfprin] 81 mg PO DAILY #0 tab.ec 04/20/17 [Rx] Nitroglycerin [Nitrostat] 0.4 mg SL Q5M PRN MDD 3 03/07/18 [History] Ranolazine [Ranexa] 500 mg PO BID 01/14/19 [History] levETIRAcetam [Levetiracetam] 500 mg PO BID 01/14/19 [History] carvediloL [Carvedilol] 3.125 mg PO BIDMEALS 04/19/20 [History] Past Medical History - Past Health History Medical/Surgical History: Denies Medical/Surgical History HEENT History: Reports: Impaired Vision, Other (See Below) Other HEENT History: uses reading glasses Cardiovascular History: Reports: CAD, High Cholesterol, Hypertension, OR, Stents, Other (See Below) Other Cardiovascular History: OR in 2009 Respiratory History: Reports: None Gastrointestinal History: Reports: None Genitourinary History: Reports: None Musculoskeletal History: Reports: None Other Musculoskeletal History: has arthritis in back Neurological History: Reports: Vertigo, Other (See Below) Other Neuro History: hx of Claustrophobia Psychiatric History: Reports: Anxiety, Depression, Other (See Below) Other Psychiatric History: Claustrophobia 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, Type II Insulin Pump Model and Bone Crusher: None Hematologic History: Reports: Anticoagulation Therapy Immunologic History: Reports: None Oncologic (Cancer) History: Reports: None Dermatologic History: Reports: None - Infectious Disease History Infectious Disease History: Reports: Chicken Pox, Measles, Mumps - Past Surgical History Head Surgeries/Procedures: Reports: None HEENT Surgical History: Reports: Oral Surgery, Tonsillectomy, Other (See Below) Other HEENT Surgeries/Procedures: dental extractions, enlarged lymph nodes removed from neck Cardiovascular Surgical History: Reports: Coronary Artery Stent Other Cardiovascular Surgeries/Procedures: Stents x3 Respiratory Surgical History: Reports: None GI Surgical History: Reports: Appendectomy Male Surgical History: Reports: None Endocrine Surgical History: Reports: None Musculoskeletal Surgical History: Reports: None Oncologic Surgical History: Reports: None Dermatological Surgical History: Reports: None Social & Family History - Family History Family Medical History: No Pertinent Family History Cardiac: Reports: OR Respiratory: Reports: None Endocrine/Metabolic: Reports: Diabetes, Type I Hematologic: Reports: None Oncologic: Reports: Other (See Below) Other Oncologic Family History: Father side has cancer but patient doesn't know exactly what kind of CA - Caffeine Use Caffeine Use: Reports: None Other Caffeine Use: decaf Caffeine Use Comment: daily - Living Situation & Occupation Living situation: Reports: Occupation: Retired ED ROS GENERAL - Review of Systems Review Of Systems: See Below (See dictation) ED EXAM, GENERAL - Physical Exam Exam: See Below (See dictation) Course - Vital Signs Text/Narrative:: Patient with multiple cardiac risk factors. Will check labs, troponin and EKG. No acute ischemia on initial EKG though wavy baseline and EKG will be repeated. Discussed with patient recommendation for admission. Last Recorded V/S: Last Vital Signs Temp 98.3 F 11/14/20 22:11 Pulse 72 11/15/20 02:52 Resp 15 11/15/20 02:52 BP 111/68 11/15/20 02:52 Pulse Ox 95 11/15/20 02:52 - Orders/Labs/Meds Orders: Active Orders 24 hr Category Date Time Status EKG Documentation Completion [RC] STAT Care 11/14/20 22:17 Active Nitroglycerin [Nitrostat] Med 11/14/20 22:16 Active 0.4 mg SL Q5M PRN Sodium Chloride 0.9% [Saline Flush] Med 11/14/20 22:16 Active 10 ml FLUSH ASDIRECTED PRN Sodium Chloride 0.9% [Saline Flush] Med 11/14/20 22:16 Active 2.5 ml FLUSH ASDIRECTED PRN Saline Lock Insert [OM.PC] Stat Oth 11/14/20 22:16 Ordered Medication Orders Nitroglycerin (Nitroglycerin 0.4 Mg Tab.Sl) 0.4 mg SL Q5M PRN PRN Reason: Chest Pain Last Admin: 11/15/20 00:04 Dose: 0.4 mg Documented by: Admin: 11/14/20 22:55 Dose: 0.4 mg Documented by: SANJANA Sodium Chloride (Sodium Chloride 0.9% 10 Ml Syringe) 10 ml FLUSH ASDIRECTED PRN PRN Reason: Keep Vein Open Sodium Chloride (Sodium Chloride 0.9% 2.5 Ml Syringe) 2.5 ml FLUSH ASDIRECTED PRN PRN Reason: Keep Vein Open Labs: Laboratory Tests 11/14/20 11/14/20 11/15/20 Range/Units 22:11 22:11 01:33 WBC 4.31 (4.0-11.0) K/uL RBC 4.29 L (4.50-5.90) M/uL Hgb 12.4 L (13.0-17.0) g/dL Hct 36.3 L (38.0-50.0) % MCV 84.6 (80.0-98.0) fL MCH 28.9 (27.0-32.0) pg MCHC 34.2 (31.0-37.0) g/dL RDW Std Deviation 45.2 (28.0-62.0) fl RDW Coeff of Ethan 15 (11.0-15.0) % Plt Count 286 (150-400) K/uL MPV 10.20 (7.40-12.00) fL Neut % (Auto) 49.7 (48.0-80.0) % Lymph % (Auto) 35.7 (16.0-40.0) % Karn[place] % (Auto) 11.8 (0.0-15.0) % Eos % (Auto) 2.6 (0.0-7.0) % Baso % (Auto) 0.2 (0.0-1.5) % Neut # (Auto) 2.1 (1.4-5.7) K/uL Lymph # (Auto) 1.5 (0.6-2.4) K/uL [place] # (Auto) 0.5 (0.0-0.8) K/uL Eos # (Auto) 0.1 (0.0-0.7) K/uL Baso # (Auto) 0.0 (0.0-0.1) K/uL Nucleated RBC % 0.0 /100WBC Nucleated RBCs # 0 K/uL Sodium 140 (136-148) mmol/L Potassium 3.7 (3.5-5.1) mmol/L Chloride 103 (98-107) mmol/L Carbon Dioxide 26.2 (21.0-32.0) mmol/L BUN 16 (7.0-18.0) mg/dL Creatinine 1.3 (0.8-1.3) mg/dL Est Cr Clr Drug Dosing 47.32 mL/min Estimated GFR (MDRD) 54.1 ml/min Glucose 118 H (74-106) mg/dL Calcium 8.3 L (8.5-10.1) mg/dL Total Bilirubin 0.3 (0.2-1.0) mg/dL AST 19 (15-37) IU/L ALT 12 L (14-63) IU/L Alkaline Phosphatase 95 (46-116) U/L Troponin I < 0.050 < 0.050 (0.000-0.056) ng/mL Total Protein 7.4 (6.4-8.2) g/dL Albumin 3.9 (3.4-5.0) g/dL Globulin 3.5 (2.6-4.0) g/dL Albumin/Globulin Ratio 1.1 (0.9-1.6) Meds: Medications Generic Name Dose Route Start Last Admin Trade Name Freq PRN Reason Stop Dose Admin Nitroglycerin 0.4 mg 11/14/20 22:16 11/15/20 00:04 Nitroglycerin 0.4 Mg Tab.Sl SL 0.4 mg Q5M PRN Administration Chest Pain Sodium Chloride 10 ml 11/14/20 22:16 Sodium Chloride 0.9% 10 Ml Syringe FLUSH ASDIRECTED PRN Keep Vein Open Sodium Chloride 2.5 ml 11/14/20 22:16 Sodium Chloride 0.9% 2.5 Ml Syringe FLUSH ASDIRECTED PRN Keep Vein Open Discontinued Medications Generic Name Dose Route Start Last Admin Trade Name Freq PRN Reason Stop Dose Admin Morphine Sulfate 4 mg 11/14/20 22:16 11/14/20 22:52 Morphine 4 Mg/Ml Syringe IVPUSH 07/30/21 22:17 4 mg ONETIME ONE Administration Morphine Sulfate 4 mg 11/15/20 00:09 11/15/20 00:14 Morphine 4 Mg/Ml Syringe IVPUSH 11/15/20 00:10 4 mg ONETIME ONE Administration - Re-Assessments/Exams Free Text/Narrative Re-Assessment/Exam: 11/15/20 00:09 Patient reported still having pain. Additional dose of morphine and nitroglycerin was given. 11/15/20 01:30 I reassessed the patient. He is sleeping comfortably. When I woke him up he reported his pain was much improved at this time. I discussed recommendation for admission versus transfer per results here today. He agrees with plan for either. 11/15/20 01:[address] Carrasco for possible admission. As the patient had a negative troponin initially and he is pain-free currently, if his repeat 2-hour troponin is negative he agrees with admission to this facility and accepts the case. Departure - Departure Time of Disposition: 02:05 Disposition: Refer to Observation Clinical Impression: Chest pain Qualifiers: Chest pain type: unspecified Qualified Code(s): R07.9 - Chest pain, unspecified - Discharge Information Sepsis Event Note (ED) - Focused Exam Vital Signs: Vital Signs Temp Pulse Resp BP BP Pulse Ox 11/15/20 00:05 83 16 111/70 96 11/15/20 00:04 111/70 11/14/20 22:55 129/78 11/14/20 22:53 90 15 129/78 96 11/14/20 22:11 98.3 F 97 18 135/82 95 - My Orders Last 24 Hours: My Active Orders 11/14/20 22:16 Nitroglycerin [Nitrostat] 0.4 mg SL Q5M PRN Sodium Chloride 0.9% [Saline Flush] 10 ml FLUSH ASDIRECTED PRN Sodium Chloride 0.9% [Saline Flush] 2.5 ml FLUSH ASDIRECTED PRN Saline Lock Insert [OM.PC] Stat 11/14/20 22:17 EKG Documentation Completion [RC] STAT - Assessment/Plan Last 24 Hours: My Active Orders 11/14/20 22:16 Nitroglycerin [Nitrostat] 0.4 mg SL Q5M PRN Sodium Chloride 0.9% [Saline Flush] 10 ml FLUSH ASDIRECTED PRN Sodium Chloride 0.9% [Saline Flush] 2.5 ml FLUSH ASDIRECTED PRN Saline Lock Insert [OM.PC] Stat 11/14/20 22:17 EKG Documentation Completion [RC] STAT
[2020-11-14 22:43] LABS: BLOOD UREA NITROGEN,BUN 16 mg/dL (7.0-18.0); CARBON DIOXIDE,CO2 26.2 mmol/L (21.0-32.0); CHLORIDE,CL 103 mmol/L (98-107); GLUCOSE RANDOM 118 mg/dL (74-106); POTASSIUM,K 3.7 mmol/L (3.5-5.1); SODIUM,NA 140 mmol/L (136-148)
[2020-11-14] MEDS: Nitroglycerin 0.4 MG Tab.SL SL PRN (22:55)
--- NOTE | 2020-11-14 23:16 | CR ---
INDICATION: Chest pain TECHNIQUE: Chest radiograph 1 view COMPARISON: 11/04/2020 FINDINGS: Mediastinum: The mediastinum is normal in appearance. The heart silhouette is normal in size and morphology. Lung: Both lungs are unremarkable in appearance with small lung volumes. No sign of pleural effusion seen. No pneumothorax is identified. Bone and Soft tissue: Unremarkable for age. IMPRESSION: 1. No acute cardiopulmonary disease is seen. Dictated by: Fermín Calle MD @ 11/14/2020 23:15:13 (Electronically Signed)
[2020-11-15] MEDS: Nitroglycerin 0.4 MG Tab.SL SL PRN (00:04)
[2020-11-15] MEDS ORDERED: Morphine 4 MG/ML Syringe IVPUSH ONE (00:09)
[2020-11-15] MEDS: Morphine 2 MG/ML SYRINGE IVPUSH PRN ×3 (04:55→20:13)
[2020-11-15 06:56] LABS: CARBON DIOXIDE,CO2 30.1 mmol/L (21.0-32.0); POTASSIUM,K 4.2 mmol/L (3.5-5.1)
--- NOTE | 2020-11-15 08:21 | PCM.HP.2 ---
H&P History of Present Illness - General Date of Service: 11/15/20 Admit Problem/Dx: Admission Diagnosis/Problem Admission Diagnosis/Problem Chest pain - History of Present Illness Initial Comments - Free Text/Narative: 75-year-old male with past medical history to include CAD, high cholesterol, hypertension, SD in 2009, 3 stents placed presents to emergency department via EMS for left-sided chest pain and admitted for ACS rule out. Patient states chest pain started roughly yesterday at 8 PM in the evening. Patient has a history of multiple admissions due to chest pain. Patient describes the pain as sharp, stabbing, nonradiating. Patient states that he did take aspirin nitroglycerin with no relief prior to ER visit. Patient cannot recall any aggravating factors for chest pain including acid indigestion. Patient states that he is compliant with all his cardiac medications including nitroglycerin and states that his medications "do not help that much". EKG performed in the ED, sinus rhythm, rate 69, nonspecific ventricular conduction delay, no acute ischemia, no STEMI. Initial troponin negative, Chest x-ray impression no acute cardiopulmonary disease is seen. Laboratory findings include magnesium 1.7, troponin negative x3, BUN 17, creatinine 1.2. Vital signs include heart rate 74, blood pressure 122/74, oxygen saturation 94%, respiratory rate 16. Patient admitted for observation, home medications including nitroglycerin as needed, aspirin, carvedilol, Plavix, Pravastatin resumed. Repeat troponin X 3 were negative. Right Chest Pain Score (Numeric/FACES): 5 Left Chest Pain Score (Numeric/FACES): 6 - Related Data Allergies/Adverse Reactions: Allergies Allergy/AdvReac Type Severity Reaction Status Date / Time No Known Allergies Allergy Verified 11/15/20 07:25 Home Medications: Home Meds Pantoprazole [ProTONIX] 40 mg PO DAILY 09/22/16 [History] Pravastatin [Pravachol] 80 mg PO BEDTIME 09/22/16 [History] Clopidogrel [Plavix] 75 mg PO DAILY 04/19/17 [History] PARoxetine [Paxil] 40 mg PO BEDTIME 04/19/17 [History] Aspirin [Halfprin] 81 mg PO DAILY #0 tab.ec 04/20/17 [Rx] Nitroglycerin [Nitrostat] 0.4 mg SL Q5M PRN MDD 3 03/07/18 [History] Ranolazine [Ranexa] 500 mg PO BID 01/14/19 [History] levETIRAcetam [Levetiracetam] 500 mg PO BID 01/14/19 [History] carvediloL [Carvedilol] 3.125 mg PO BIDMEALS 04/19/20 [History] Past Medical History - Past Health History Medical/Surgical History: Denies Medical/Surgical History HEENT History: Reports: Impaired Vision, Other (See Below) Other HEENT History: uses reading glasses Cardiovascular History: Reports: CAD, High Cholesterol, Hypertension, SD, Stents, Other (See Below) Other Cardiovascular History: SD in 2009 Respiratory History: Reports: None Gastrointestinal History: Reports: None Genitourinary History: Reports: None Musculoskeletal History: Reports: None Other Musculoskeletal History: has arthritis in back Neurological History: Reports: Vertigo, Other (See Below) Other Neuro History: hx of Claustrophobia Psychiatric History: Reports: Anxiety, Depression, Other (See Below) Other Psychiatric History: Claustrophobia 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, Type II Insulin Pump Model and Machine Sprayer: None Hematologic History: Reports: Anticoagulation Therapy Immunologic History: Reports: None Oncologic (Cancer) History: Reports: None Dermatologic History: Reports: None - Infectious Disease History Infectious Disease History: Reports: Chicken Pox, Measles, Mumps - Past Surgical History Head Surgeries/Procedures: Reports: None HEENT Surgical History: Reports: Oral Surgery, Tonsillectomy, Other (See Below) Other HEENT Surgeries/Procedures: dental extractions, enlarged lymph nodes rem salbador from neck Cardiovascular Surgical History: Reports: Coronary Artery Stent Other Cardiovascular Surgeries/Procedures: Stents x3 Respiratory Surgical History: Reports: None GI Surgical History: Reports: Appendectomy Male Surgical History: Reports: None Endocrine Surgical History: Reports: None Musculoskeletal Surgical History: Reports: None Oncologic Surgical History: Reports: None Dermatological Surgical History: Reports: None Social & Family History - Family History Family Medical History: No Pertinent Family History Cardiac: Reports: SD Respiratory: Reports: None Endocrine/Metabolic: Reports: Diabetes, Type I Hematologic: Reports: None Oncologic: Reports: Other (See Below) Other Oncologic Family History: Father side has cancer but patient doesn't know exactly what kind of CA - Tobacco Use Tobacco Use Status *Q: Former Tobacco User Used Tobacco, but Quit: Yes Month/Year Tobacco Last Used: 04/2008 - Caffeine Use Caffeine Use: Reports: None Other Caffeine Use: decaf Caffeine Use Comment: daily - Alcohol Use Date of Last Drink: 10/15/20 - Recreational Drug Use Recreational Drug Use: No - Living Situation & Occupation Living situation: Reports: Occupation: Retired H&P Review of Systems - Review of Systems: Review Of Systems: See Below General: Reports: Weakness. Denies: Fever, Chills Pulmonary: Reports: Wheezing. Denies: Shortness of Breath Cardiovascular: Reports: Chest Pain. Denies: Palpitations Gastrointestinal: Denies: Abdominal Pain Neurological: Denies: Confusion, Dizziness, Headache Exam - Exam Exam: See Below - Vital Signs Vital Signs: Last Vital Signs Temp 96.9 F 11/15/20 03:55 Pulse 71 11/15/20 03:55 Resp 18 11/15/20 03:55 BP 114/68 11/15/20 03:55 Pulse Ox 95 11/15/20 03:55 Weight: 157 lb 8 oz - Exam General: Alert, Oriented Lungs: Clear to Auscultation, Normal Respiratory Effort Cardiovascular: Regular Rate, Regular Rhythm GI/Abdominal Exam: Soft, Non-Tender Extremities: No Pedal Edema Neuro Extensive - Mental Status: Alert, Oriented x3 Psychiatric: Alert - Patient Data Lab Results Last 24 hrs: Laboratory Results - last 24 hr 11/14/20 11/14/20 11/15/20 Range/Units 22:11 22:11 01:33 WBC 4.31 (4.0-11.0) K/uL RBC 4.29 L (4.50-5.90) M/uL Hgb 12.4 L (13.0-17.0) g/dL Hct 36.3 L (38.0-50.0) % MCV 84.6 (80.0-98.0) fL MCH 28.9 (27.0-32.0) pg MCHC 34.2 (31.0-37.0) g/dL RDW Std Deviation 45.2 (28.0-62.0) fl RDW Coeff of Ethan 15 (11.0-15.0) % Plt Count 286 (150-400) K/uL MPV 10.20 (7.40-12.00) fL Neut % (Auto) 49.7 (48.0-80.0) % Lymph % (Auto) 35.7 (16.0-40.0) % [place] % (Auto) 11.8 (0.0-15.0) % Eos % (Auto) 2.6 (0.0-7.0) % Baso % (Auto) 0.2 (0.0-1.5) % Neut # (Auto) 2.1 (1.4-5.7) K/uL Lymph # (Auto) 1.5 (0.6-2.4) K/uL Marshall # (Auto) 0.5 (0.0-0.8) K/uL Eos # (Auto) 0.1 (0.0-0.7) K/uL Baso # (Auto) 0.0 (0.0-0.1) K/uL Nucleated RBC % 0.0 /100WBC Nucleated RBCs # 0 K/uL Sodium 140 (136-148) mmol/L Potassium 3.7 (3.5-5.1) mmol/L Chloride 103 (98-107) mmol/L Carbon Dioxide 26.2 (21.0-32.0) mmol/L BUN 16 (7.0-18.0) mg/dL Creatinine 1.3 (0.8-1.3) mg/dL Est Cr Clr Drug Dosing 47.32 mL/min Estimated GFR (MDRD) 54.1 ml/min Glucose 118 H (74-106) mg/dL Calcium 8.3 L (8.5-10.1) mg/dL Total Bilirubin 0.3 (0.2-1.0) mg/dL AST 19 (15-37) IU/L ALT 12 L (14-63) IU/L Alkaline Phosphatase 95 (46-116) U/L Troponin I < 0.050 < 0.050 (0.000-0.056) ng/mL Total Protein 7.4 (6.4-8.2) g/dL Albumin 3.9 (3.4-5.0) g/dL Globulin 3.5 (2.6-4.0) g/dL Albumin/Globulin Ratio 1.1 (0.9-1.6) SARS-CoV-2 RNA (WENDY) (NEGATIVE) 11/15/20 11/15/20 11/15/20 Range/Units 02:29 06:10 06:10 WBC 5.26 (4.0-11.0) K/uL RBC 4.08 L (4.50-5.90) M/uL Hgb 11.5 L (13.0-17.0) g/dL Hct 35.2 L (38.0-50.0) % MCV 86.3 (80.0-98.0) fL MCH 28.2 (27.0-32.0) pg MCHC 32.7 (31.0-37.0) g/dL RDW Std Deviation 45.8 (28.0-62.0) fl RDW Coeff of Ethan 15 (11.0-15.0) % Plt Count 223 (150-400) K/uL MPV 9.80 (7.40-12.00) fL Neut % (Auto) 62.4 (48.0-80.0) % Lymph % (Auto) 23.0 (16.0-40.0) % Marshall % (Auto) 12.7 (0.0-15.0) % Eos % (Auto) 1.7 (0.0-7.0) % Baso % (Auto) 0.2 (0.0-1.5) % Neut # (Auto) 3.3 (1.4-5.7) K/uL Lymph # (Auto) 1.2 (0.6-2.4) K/uL Marshall # (Auto) 0.7 (0.0-0.8) K/uL Eos # (Auto) 0.1 (0.0-0.7) K/uL Baso # (Auto) 0.0 (0.0-0.1) K/uL Nucleated RBC % 0.0 /100WBC Nucleated RBCs # 0 K/uL Sodium 142 (136-148) mmol/L Potassium 4.2 (3.5-5.1) mmol/L Chloride 106 (98-107) mmol/L Carbon Dioxide 30.1 (21.0-32.0) mmol/L BUN 17 (7.0-18.0) mg/dL Creatinine 1.2 (0.8-1.3) mg/dL Est Cr Clr Drug Dosing 51.26 mL/min Estimated GFR (MDRD) 59.3 ml/min Glucose 113 H (74-106) mg/dL Calcium 8.5 (8.5-10.1) mg/dL Total Bilirubin (0.2-1.0) mg/dL AST (15-37) IU/L ALT (14-63) IU/L Alkaline Phosphatase (46-116) U/L Troponin I (0.000-0.056) ng/mL Total Protein (6.4-8.2) g/dL Albumin (3.4-5.0) g/dL Globulin (2.6-4.0) g/dL Albumin/Globulin Ratio (0.9-1.6) SARS-CoV-2 RNA (WENDY) NEGATIVE (NEGATIVE) Result Diagrams: 11/15/20 06:10 11/15/20 06:10 Sepsis Event Note - Evaluation Sepsis Screening Result: No Definite Risk - Focused Exam Vital Signs: Vital Signs Temp Pulse Resp BP BP BP Pulse Ox 11/15/20 03:55 96.9 F 71 18 114/68 95 11/15/20 02:52 72 15 111/68 95 11/15/20 00:05 83 16 111/70 96 11/15/20 00:04 111/70 11/14/20 22:55 129/78 11/14/20 22:53 90 15 129/78 96 11/14/20 22:11 98.3 F 97 18 135/82 95 - Problem List (1) Chest pain SNOMED Code(s): 77969496 ICD Code: R07.9 - CHEST PAIN, UNSPECIFIED Status: Acute Current Visit: Yes Qualifiers: Chest pain type: unspecified Qualified Code(s): R07.9 - Chest pain, unspecified (2) Atypical chest pain SNOMED Code(s): 067104474 ICD Code: R07.89 - OTHER CHEST PAIN Status: Acute Priority: High Current Visit: No (3) History of coronary angioplasty with insertion of stent SNOMED Code(s): 398908858, 910291328, 552724684 ICD Code: Z95.5 - PRESENCE OF CORONARY ANGIOPLASTY IMPLANT AND GRAFT Status: Acute Current Visit: No (4) History of coronary artery disease SNOMED Code(s): 172978718 ICD Code: Z86.79 - PERSONAL HISTORY OF OTHER DISEASES OF THE CIRCULATORY SYSTEM Status: Acute Current Visit: No (5) Chest pain, rule out acute myocardial infarction SNOMED Code(s): 36444182 ICD Code: R07.9 - CHEST PAIN, UNSPECIFIED Status: Chronic Priority: Medium Current Visit: No (6) Coronary artery disease SNOMED Code(s): 85904147 ICD Code: I25.10 - ATHSCL HEART DISEASE OF [place] CORONARY ARTERY W/O ANG PCTRS Status: Chronic Priority: Medium Current Visit: No Qualifiers: Associated angina: with unspecified angina (7) Myocardial infarction SNOMED Code(s): 97397736 ICD Code: I21.9 - ACUTE MYOCARDIAL INFARCTION, UNSPECIFIED Status: Chronic Priority: High Current Visit: No Qualifiers: Involved coronary artery: unspecified coronary artery Problem List Initiated/Reviewed/Updated: Yes Orders Last 24hrs: Active Orders 24 hr Category Date Time Status Patient Status [ADT] Routine ADT 11/15/20 02:05 Active EKG 12 Lead [EKG Documentation Completion] [RC] STAT Care 11/15/20 03:36 Active EKG Documentation Completion [RC] STAT Care 11/14/20 22:17 Active Telemetry Monitoring [Cardiac Monitoring] [RC] Q8H Care 11/15/20 03:37 Active Regular Diet [DIET] Diet 11/15/20 Breakfast Active TROPONIN I [CHEM] Routine Lab 11/15/20 07:30 Received Morphine Med 11/15/20 04:29 Active 2 mg IVPUSH Q3H PRN Nitroglycerin [Nitrostat] Med 11/14/20 22:16 Active 0.4 mg SL Q5M PRN Sodium Chloride 0.9% [Saline Flush] Med 11/14/20 22:16 Active 10 ml FLUSH ASDIRECTED PRN Sodium Chloride 0.9% [Saline Flush] Med 11/14/20 22:16 Active 2.5 ml FLUSH ASDIRECTED PRN Saline Lock Insert [OM.PC] Stat Oth 11/14/20 22:16 Ordered Medication Orders Morphine Sulfate (Morphine 2 Mg/Ml Syringe) 2 mg IVPUSH Q3H PRN PRN Reason: Chest Pain Last Admin: 11/15/20 04:55 Dose: 2 mg Documented by: DANILO Nitroglycerin (Nitroglycerin 0.4 Mg Tab.Sl) 0.4 mg SL Q5M PRN PRN Reason: Chest Pain Last Admin: 11/15/20 00:04 Dose: 0.4 mg Documented by: Admin: 11/14/20 22:55 Dose: 0.4 mg Documented by: SANJANA Sodium Chloride (Sodium Chloride 0.9% 10 Ml Syringe) 10 ml FLUSH ASDIRECTED PRN PRN Reason: Keep Vein Open Sodium Chloride (Sodium Chloride 0.9% 2.5 Ml Syringe) 2.5 ml FLUSH ASDIRECTED PRN PRN Reason: Keep Vein Open Assessment/Plan Comment:: ACS rule out -troponin negative x 4, Monitor on telemetry, EKG results include NSR, no evidence of ischemic changes, no STEMI, conduction delay PRN Oxygen, Continue cardiac home medications, include carvedilol twice daily, Plavix daily, nitroglycerin as needed Monitor and replete electrolytes as necessary
[2020-11-15] MEDS ORDERED: Nitroglycerin 0.4 MG Tab.SL SL PRN (13:08)
[2020-11-15] MEDS: Clopidogrel 75 MG Tab PO SCH (13:58)
[2020-11-15] MEDS ORDERED: Carvedilol 3.125 MG Tab PO SCH (14:00)
[2020-11-15] MEDS ORDERED: Magnesium Sulfate/Water 2 GM in Premix Bag 1 BAG IV ONE (14:19)
[2020-11-15] MEDS: Aspirin 81 MG Tab.EC PO SCH (14:33)
[2020-11-15] MEDS: levETIRAcetam 500 MG Tab PO SCH ×2 (15:40→20:25)
[2020-11-15] MEDS: Pravastatin 40 MG Tab PO SCH (20:25)
[2020-11-15] MEDS: PARoxetine 20 MG Tab PO SCH (20:25)
[2020-11-15] MEDS ORDERED: Nitroglycerin/D5W 25 MG/250 ML BOTTLE IV SCH (20:45)
--- NOTE | 2020-11-15 20:52 | PCM.SN.2 ---
- Free Text/Narrative Note: Called to the patient's room for chest pain. The nurse states that the patient was complaining of chest pain, had an episode of shaking although he did not lose consciousness and never lost his pulse or respirations, and then had some weakness where he was a bit limp. Blood sugar was above 90. Upon presenting the room patient had to normal vital signs and well-appearing. Is complaining of some chest pain. EKG done. 831 is the time. 75, normal sinus rhythm, nonspecific ST/T findings. The admitting doctor was contacted. The decision by the admitting doctor was to have the patient go to the ICU and at this point the patient was otherwise hemodynamically stable
--- NOTE | 2020-11-15 21:05 | PCM.SN.2 ---
- Free Text/Narrative Note: patient reported 10/10 chest pain and had shakes on the floor. Patient transfer to ICU and started on nitro drip. Coreg increased. PAtient reports pain has improved to a 6/10. Serial cardiac enzymes and EKGS do not show signs of acute ischemia. Will check CT of chest to evaluate chest pain.
[2020-11-15] MEDS: Carvedilol 6.25 MG Tab PO SCH (21:31)
--- NOTE | 2020-11-15 22:48 | PN ---
THC Physician - Brief Progress [id number]/31/2021 22:41[facility] Gerard Mcgregor, DOMINIC - FLAVIO [facility] - FLAVIO MOLINAJUNIOR Janki of Service 11/15/2020 22:41HPI/Events of Note Case discussed with RN. 75 year old M admitted with CP. Started on NTG drip and continues o n ASA/plavix.All trops negative so far.Recs include: hemodynamic monitoring, trend trops and EKGs, ca rdio eval ongoing, wean NTG as tolerated, ASA/plavix/statin, supplemental O2 PRN, GI and DVT prophyla xis, monitor temps and WBCs, replace lytes as needed, glycemic monitoring, pain control, neuro checks .Interventions Minor-Communication with other healthcare providers and/or family
[2020-11-16] MEDS ORDERED: Carvedilol 6.25 MG Tab PO SCH (00:05)
[2020-11-16] MEDS ORDERED: Carvedilol 3.125 MG Tab PO ONE (00:05)
[2020-11-16] MEDS: Morphine 2 MG/ML SYRINGE IVPUSH PRN ×3 (00:13→18:35)
[2020-11-16] MEDS ORDERED: Iopamidol 755 Mg/ML 100 ML Bottle IVPUSH ONE (00:51)
--- NOTE | 2020-11-16 01:06 | CT ---
INDICATION: Chest pain TECHNIQUE: CT chest with i.v. contrast using pulmonary angiographic technique. Coronal and sagittal reformats were obtained. CONTRAST: 75 mL Isovue 370 COMPARISON: None FINDINGS: Cardiovascular: The pulmonary arteries are unremarkable in enhancement with no evidence of acute pulmonary embolism. Moderate biventricular cardiomegaly is present. Ectasia of the ascending aorta is noted measuring 3.6 cm. A small ductus diverticulum is noted along the inferior aortic arch. Moderate atherosclerotic calcifications are noted in the coronary arteries. Mediastinum: No mass or adenopathy seen. Lung: There is minimal dependent and passive atelectasis seen within the lung bases. Pleura and pericardium: Small bilateral pleural effusions are present. No significant pericardial effusion is present. Chest wall and axilla: No mass or adenopathy seen. Bone: Unremarkable for age. Upper abdomen: Unremarkable. IMPRESSIONS: 1. No CT evidence of acute pulmonary emboli seen. 2. Moderate biventricular cardiomegaly is present. 3. Moderate atherosclerotic calcifications are noted in the coronary arteries. 4. Small bilateral pleural effusions are present. Dictated by Missing ImagesMD Merrick @ 11/16/2020 1:05:36 AM Please note that all CT scans at this facility use dose modulation, iterative reconstruction, and/or weight-based dosing when appropriate to reduce radiation dose to as low as reasonably achievable. Dictated by: Fermín Calle MD @ 11/16/2020 01:05:40 (Electronically Signed)
[2020-11-16] MEDS: Pantoprazole 40 MG Tab.CR PO SCH (06:29)
[2020-11-16 07:37] LABS: BLOOD UREA NITROGEN,BUN 19 mg/dL (7.0-18.0); CARBON DIOXIDE,CO2 27.4 mmol/L (21.0-32.0); CHLORIDE,CL 107 mmol/L (98-107); GLUCOSE RANDOM 112 mg/dL (74-106); POTASSIUM,K 4.2 mmol/L (3.5-5.1); SODIUM,NA 142 mmol/L (136-148)
[2020-11-16] MEDS ORDERED: Carvedilol 6.25 MG Tab PO ONE (08:00)
[2020-11-16] MEDS: Aspirin 81 MG Tab.EC PO SCH (08:53)
[2020-11-16] MEDS: Clopidogrel 75 MG Tab PO SCH (08:53)
[2020-11-16] MEDS: levETIRAcetam 500 MG Tab PO SCH ×2 (08:53→20:35)
[2020-11-16] MEDS: Carvedilol 6.25 MG Tab PO SCH ×2 (09:40→20:35)
--- NOTE | 2020-11-16 13:06 | PCM.PN ---
- General Info Date of Service: 11/16/20 Admission Dx/Problem (Free Text): Admission Diagnosis/Problem Admission Diagnosis/Problem Chest pain Subjective Update: 75-year-old male with a history of NM status post 3 stent placements in 2009, admitted for atypical chest pain and ACS rule out. Troponins negative x4. EKG was unremarkable. Overnight the patient was transferred to ICU due to continuing 9/10 chest pain and requiring 1 L nasal cannula. Patient had nuclear imaging done on Tuesday, still awaiting results. Patient's chest pain had not improved so his Coreg was increased. Overnight his blood pressure dropped to 90/60 so Coreg was held. Nitroglycerin drip was held at 11:30 PM. He had a CT angio overnight which showed small bilateral pleural effusions and cardiomegaly. This morning the patient states that his chest pain has decreased and is over the left chest, nonradiating. Patient denies headaches, abdominal pain, palpitations or shortness of breath. Patient is on telemetry and has been in normal sinus rhythm with episodes of sinus bradycardia and sinus tachycardia. Patient's oxygen saturation is 98% but falls to 90% while he is asleep. - Review of Systems General: Denies: Fever, Chills HEENT: Reports: No Symptoms Pulmonary: Denies: Shortness of Breath, Pleuritic Chest Pain, Cough, Hemoptysis Cardiovascular: Reports: Chest Pain. Denies: Palpitations, Orthopnea, PND, Edema Gastrointestinal: Denies: Abdominal Pain, Constipation, Diarrhea, Hematochezia, Melena, Nausea, Vomiting Genitourinary: Reports: No Symptoms Musculoskeletal: Reports: No Symptoms Skin: Reports: No Symptoms Neurological: Reports: No Symptoms - Patient Data Vitals - Most Recent: Last Vital Signs Temp 97.5 F 11/16/20 12:00 Pulse 74 11/16/20 09:40 Resp 13 11/16/20 12:00 BP 112/70 11/16/20 12:00 Pulse Ox 94 L 11/16/20 12:00 Weight - Most Recent: 143 lb 4.8 oz I&O - Last 24 Hours: Intake & Output 11/15/20 11/16/20 11/16/20 22:59 06:59 14:59 Intake Total 350 250 Output Total 600 500 Balance -250 -250 Lab Results Last 24 Hours: Laboratory Results - last 24 hr 11/15/20 11/15/20 11/15/20 Range/Units 11:00 20:22 20:40 WBC (4.0-11.0) K/uL RBC (4.50-5.90) M/uL Hgb (13.0-17.0) g/dL Hct (38.0-50.0) % MCV (80.0-98.0) fL MCH (27.0-32.0) pg MCHC (31.0-37.0) g/dL RDW Std Deviation (28.0-62.0) fl RDW Coeff of Ethan (11.0-15.0) % Plt Count (150-400) K/uL MPV (7.40-12.00) fL Neut % (Auto) (48.0-80.0) % Lymph % (Auto) (16.0-40.0) % [place] % (Auto) (0.0-15.0) % Eos % (Auto) (0.0-7.0) % Baso % (Auto) (0.0-1.5) % Neut # (Auto) (1.4-5.7) K/uL Lymph # (Auto) (0.6-2.4) K/uL [place] # (Auto) (0.0-0.8) K/uL Eos # (Auto) (0.0-0.7) K/uL Baso # (Auto) (0.0-0.1) K/uL Nucleated RBC % /100WBC Nucleated RBCs # K/uL Sodium (136-148) mmol/L Potassium (3.5-5.1) mmol/L Chloride (98-107) mmol/L Carbon Dioxide (21.0-32.0) mmol/L BUN (7.0-18.0) mg/dL Creatinine (0.8-1.3) mg/dL Est Cr Clr Drug Dosing mL/min Estimated GFR (MDRD) ml/min Glucose (74-106) mg/dL POC Glucose 99 (70-99) mg/dL Calcium (8.5-10.1) mg/dL Magnesium 1.7 L (1.8-2.4) mg/dL Troponin I < 0.050 (0.000-0.056) ng/mL 11/16/20 11/16/20 Range/Units 06:30 06:30 WBC 3.78 L (4.0-11.0) K/uL RBC 3.98 L (4.50-5.90) M/uL Hgb 11.3 L (13.0-17.0) g/dL Hct 34.6 L (38.0-50.0) % MCV 86.9 (80.0-98.0) fL MCH 28.4 (27.0-32.0) pg MCHC 32.7 (31.0-37.0) g/dL RDW Std Deviation 47.2 (28.0-62.0) fl RDW Coeff of Ethan 15 (11.0-15.0) % Plt Count 207 (150-400) K/uL MPV 10.00 (7.40-12.00) fL Neut % (Auto) 56.0 (48.0-80.0) % Lymph % (Auto) 29.9 (16.0-40.0) % [place] % (Auto) 10.6 (0.0-15.0) % Eos % (Auto) 3.2 (0.0-7.0) % Baso % (Auto) 0.3 (0.0-1.5) % Neut # (Auto) 2.1 (1.4-5.7) K/uL Lymph # (Auto) 1.1 (0.6-2.4) K/uL [place] # (Auto) 0.4 (0.0-0.8) K/uL Eos # (Auto) 0.1 (0.0-0.7) K/uL Baso # (Auto) 0.0 (0.0-0.1) K/uL Nucleated RBC % 0.0 /100WBC Nucleated RBCs # 0 K/uL Sodium 142 (136-148) mmol/L Potassium 4.2 (3.5-5.1) mmol/L Chloride 107 (98-107) mmol/L Carbon Dioxide 27.4 (21.0-32.0) mmol/L BUN 19 H (7.0-18.0) mg/dL Creatinine 1.0 (0.8-1.3) mg/dL Est Cr Clr Drug Dosing 60.49 mL/min Estimated GFR (MDRD) > 60.0 ml/min Glucose 112 H (74-106) mg/dL POC Glucose (70-99) mg/dL Calcium 8.3 L (8.5-10.1) mg/dL Magnesium 2.4 (1.8-2.4) mg/dL Troponin I < 0.050 (0.000-0.056) ng/mL Med Orders - Current: Current Medications Aspirin (Aspirin 81 Mg Tab.Ec) 81 mg PO DAILY [facility] Last Admin: 11/16/20 08:53 Dose: 81 mg Documented by: Carvedilol (Carvedilol 6.25 Mg Tab) 6.25 mg PO BID [facility] Last Admin: 11/16/20 09:40 Dose: 6.25 mg Documented by: Clopidogrel Bisulfate (Clopidogrel 75 Mg Tab) 75 mg PO DAILY [facility] Last Admin: 11/16/20 08:53 Dose: 75 mg Documented by: Nitroglycerin/Dextrose (Nitroglycerin 25 Mg/D5w 250 Ml) 25 mg in 250 mls @ 3 mls/hr IV TITRATE [facility]; Protocol Last Titration: 11/15/20 23:36 Dose: 0 mcg/min, 0 mls/hr Documented by: Levetiracetam (Levetiracetam 500 Mg Tab) 500 mg PO BID [facility] Last Admin: 11/16/20 08:53 Dose: 500 mg Documented by: Morphine Sulfate (Morphine 2 Mg/Ml Syringe) 2 mg IVPUSH Q3H PRN PRN Reason: Chest Pain Last Admin: 11/16/20 08:47 Dose: 2 mg Documented by: Nitroglycerin (Nitroglycerin 0.4 Mg Tab.Sl) 0.4 mg SL Q5M PRN PRN Reason: Chest Pain Pantoprazole Sodium (Pantoprazole 40 Mg Tab.Cr) 40 mg PO ACBREAKFAST [facility] Last Admin: 11/16/20 06:29 Dose: 40 mg Documented by: Paroxetine HCl (Paroxetine 20 Mg Tab) 40 mg PO BEDTIME [facility] Last Admin: 11/15/20 20:25 Dose: 40 mg Documented by: Pravastatin Sodium (Pravastatin 40 Mg Tab) 80 mg PO BEDTIME [facility] Last Admin: 11/15/20 20:25 Dose: 80 mg Documented by: Ranolazine (Ranolazine 500 Mg Tab.Er) 500 mg PO BID [facility] Last Admin: 11/16/20 08:55 Dose: 500 mg Documented by: Sodium Chloride (Sodium Chloride 0.9% 10 Ml Syringe) 10 ml FLUSH ASDIRECTED PRN PRN Reason: Keep Vein Open Sodium Chloride (Sodium Chloride 0.9% 2.5 Ml Syringe) 2.5 ml FLUSH ASDIRECTED PRN PRN Reason: Keep Vein Open Discontinued Medications Carvedilol (Carvedilol 3.125 Mg Tab) 3.125 mg PO BID ERICK Stop: 11/16/20 08:00 Last Admin: 11/15/20 13:58 Dose: 3.125 mg Documented by: Carvedilol (Carvedilol 6.25 Mg Tab) 6.25 mg PO ONETIME ONE Stop: 11/16/20 08:01 Carvedilol (Carvedilol 3.125 Mg Tab) 3.125 mg PO ONETIME ONE Stop: 11/16/20 00:06 Carvedilol (Carvedilol 6.25 Mg Tab) 6.25 mg PO BID [facility] Magnesium Sulfate 2 gm/ Premix 50 mls @ 12.5 mls/hr IV ONETIME ONE Stop: 11/15/20 18:18 Last Admin: 11/15/20 14:32 Dose: 12.5 mls/hr Documented by: Iopamidol (Iopamidol 755 Mg/Ml 100 Ml Bottle) 75 ml IVPUSH ONETIME ONE Stop: 11/16/20 00:52 Last Admin: 11/16/20 00:52 Dose: 75 ml Documented by: Morphine Sulfate (Morphine 4 Mg/Ml Syringe) 4 mg IVPUSH ONETIME ONE Stop: 11/14/20 22:17 Last Admin: 11/14/20 22:52 Dose: 4 mg Documented by: Morphine Sulfate (Morphine 4 Mg/Ml Syringe) 4 mg IVPUSH ONETIME ONE Stop: 11/15/20 00:10 Last Admin: 11/15/20 00:14 Dose: 4 mg Documented by: Nitroglycerin (Nitroglycerin 0.4 Mg Tab.Sl) 0.4 mg SL Q5M PRN PRN Reason: Chest Pain Last Admin: 11/15/20 00:04 Dose: 0.4 mg Documented by: - Exam General: Alert, Oriented, Cooperative Neck: Supple, No JVD. No: Carotid Bruit Lungs: Decreased Breath Sounds. No: Crackles Cardiovascular: Regular Rate, Regular Rhythm, No Murmurs GI/Abdominal Exam: Normal Bowel Sounds, Soft, Non-Tender, No Distention Extremities: No: Pedal Edema, Phi's Sign, Leg Pain Peripheral Pulses: 2+: Dorsalis Pedis (L), Dorsalis Pedis (R) Skin: Warm, Dry, Intact Neurological: No New Focal Deficit, Normal Speech, Normal Tone, Strength Equal Bilateral - Patient Data Lab Results Last 24 hrs: Laboratory Results - last 24 hr 11/15/20 11/15/20 11/15/20 Range/Units 11:00 20:22 20:40 WBC (4.0-11.0) K/uL RBC (4.50-5.90) M/uL Hgb (13.0-17.0) g/dL Hct (38.0-50.0) % MCV (80.0-98.0) fL MCH (27.0-32.0) pg MCHC (31.0-37.0) g/dL RDW Std Deviation (28.0-62.0) fl RDW Coeff of Ethan (11.0-15.0) % Plt Count (150-400) K/uL MPV (7.40-12.00) fL Neut % (Auto) (48.0-80.0) % Lymph % (Auto) (16.0-40.0) % [place] % (Auto) (0.0-15.0) % Eos % (Auto) (0.0-7.0) % Baso % (Auto) (0.0-1.5) % Neut # (Auto) (1.4-5.7) K/uL Lymph # (Auto) (0.6-2.4) K/uL [place] # (Auto) (0.0-0.8) K/uL Eos # (Auto) (0.0-0.7) K/uL Baso # (Auto) (0.0-0.1) K/uL Nucleated RBC % /100WBC Nucleated RBCs # K/uL Sodium (136-148) mmol/L Potassium (3.5-5.1) mmol/L Chloride (98-107) mmol/L Carbon Dioxide (21.0-32.0) mmol/L BUN (7.0-18.0) mg/dL Creatinine (0.8-1.3) mg/dL Est Cr Clr Drug Dosing mL/min Estimated GFR (MDRD) ml/min Glucose (74-106) mg/dL POC Glucose 99 (70-99) mg/dL Calcium (8.5-10.1) mg/dL Magnesium 1.7 L (1.8-2.4) mg/dL Troponin I < 0.050 (0.000-0.056) ng/mL 11/16/20 11/16/20 Range/Units 06:30 06:30 WBC 3.78 L (4.0-11.0) K/uL RBC 3.98 L (4.50-5.90) M/uL Hgb 11.3 L (13.0-17.0) g/dL Hct 34.6 L (38.0-50.0) % MCV 86.9 (80.0-98.0) fL MCH 28.4 (27.0-32.0) pg MCHC 32.7 (31.0-37.0) g/dL RDW Std Deviation 47.2 (28.0-62.0) fl RDW Coeff of Ethan 15 (11.0-15.0) % Plt Count 207 (150-400) K/uL MPV 10.00 (7.40-12.00) fL Neut % (Auto) 56.0 (48.0-80.0) % Lymph % (Auto) 29.9 (16.0-40.0) % [place] % (Auto) 10.6 (0.0-15.0) % Eos % (Auto) 3.2 (0.0-7.0) % Baso % (Auto) 0.3 (0.0-1.5) % Neut # (Auto) 2.1 (1.4-5.7) K/uL Lymph # (Auto) 1.1 (0.6-2.4) K/uL [place] # (Auto) 0.4 (0.0-0.8) K/uL Eos # (Auto) 0.1 (0.0-0.7) K/uL Baso # (Auto) 0.0 (0.0-0.1) K/uL Nucleated RBC % 0.0 /100WBC Nucleated RBCs # 0 K/uL Sodium 142 (136-148) mmol/L Potassium 4.2 (3.5-5.1) mmol/L Chloride 107 (98-107) mmol/L Carbon Dioxide 27.4 (21.0-32.0) mmol/L BUN 19 H (7.0-18.0) mg/dL Creatinine 1.0 (0.8-1.3) mg/dL Est Cr Clr Drug Dosing 60.49 mL/min Estimated GFR (MDRD) > 60.0 ml/min Glucose 112 H (74-106) mg/dL POC Glucose (70-99) mg/dL Calcium 8.3 L (8.5-10.1) mg/dL Magnesium 2.4 (1.8-2.4) mg/dL Troponin I < 0.050 (0.000-0.056) ng/mL Result Diagrams: 11/16/20 06:30 11/16/20 06:30 Sepsis Event Note - Evaluation Sepsis Screening Result: No Definite Risk - Focused Exam Vital Signs: Vital Signs Temp Pulse Resp BP BP Pulse Ox 11/16/20 12:00 97.5 F 13 112/70 94 L 11/16/20 11:00 16 122/57 L 94 L 11/16/20 10:00 15 127/68 93 L 11/16/20 09:40 74 118/60 11/16/20 09:00 11 L 90/48 L 90 L 11/16/20 08:00 97.7 F 12 109/63 92 L 11/16/20 07:00 12 131/72 92 L 11/16/20 06:00 13 124/72 96 11/16/20 05:00 11 L 107/61 92 L 11/16/20 04:00 97.8 F 17 105/61 94 L 11/16/20 03:00 12 102/60 93 L 11/16/20 02:00 11 L 102/60 94 L - Problem List Review Problem List Initiated/Reviewed/Updated: Yes - Plan Plan:: Patient continues to have atypical chest pain. Troponins were negative x4 and EKG was unremarkable. Only showed conduction delay. Patient remains on 1 L nasal cannula. Nitroglycerin remains suspended. Coreg is held for low blood pressure. Patient remains in the ICU. Will need his nuclear study read to guide further management. If patient continues to complain of chest pain we will consult cardiology. His credit card clerk was contacted by the ER physician. Continue home medications.
[2020-11-16] MEDS: Pravastatin 40 MG Tab PO SCH (20:35)
[2020-11-16] MEDS: PARoxetine 20 MG Tab PO SCH (20:35)
[2020-11-17] MEDS: Morphine 2 MG/ML SYRINGE IVPUSH PRN (00:25)
[2020-11-17] MEDS: Pantoprazole 40 MG Tab.CR PO SCH (07:45)
[2020-11-17] MEDS: Clopidogrel 75 MG Tab PO SCH (08:56)
[2020-11-17 08:57] VITALS: PULSE 65
[2020-11-17] MEDS: Carvedilol 6.25 MG Tab PO SCH (08:57)
[2020-11-17] MEDS: levETIRAcetam 500 MG Tab PO SCH (08:57)
[2020-11-17] MEDS: Aspirin 81 MG Tab.EC PO SCH (08:57)
[2020-11-17 09:10] LABS: BLOOD UREA NITROGEN,BUN 18 mg/dL (7.0-18.0); CARBON DIOXIDE,CO2 29.3 mmol/L (21.0-32.0); CHLORIDE,CL 105 mmol/L (98-107); GLUCOSE RANDOM 99 mg/dL (74-106); SODIUM,NA 140 mmol/L (136-148)
[2020-11-17 13:12] VITALS: BP 119/68
--- NOTE | 2020-11-17 13:53 | PCM.DCSUM1 ---
<Filemon Malloy - Last Filed: 11/17/20 20:30> Discharge Summary - Hospital Course Free Text/Narrative:: 75-year-old male with past medical history to include CAD, high cholesterol, hypertension, HI in 2009, 3 stents placed presents to emergency department via EMS for left-sided chest pain and admitted for ACS rule out. Patient states chest pain started roughly yesterday at 8 PM in the evening. Patient has a history of multiple admissions due to chest pain. Patient describes the pain as sharp, stabbing, nonradiating. Patient states that he did take aspirin nitroglycerin with no relief prior to ER visit. Patient cannot recall any aggravating factors for chest pain including acid indigestion. Patient states that he is compliant with all his cardiac medications including nitroglycerin and states that his medications "do not help that much". EKG performed in the ED, sinus rhythm, rate 69, nonspecific ventricular conduction delay, no acute ischemia, no STEMI. Initial troponin negative, Chest x-ray impression no acute cardiopulmonary disease is seen. Laboratory findings include magnesium 1.7, troponin negative x3, BUN 17, creatinine 1.2. Vital signs include heart rate 74, blood pressure 122/74, oxygen saturation 94%, respiratory rate 16. Patient admitted for observation, home medications including nitroglycerin as needed, aspirin, carvedilol, Plavix, Pravastatin resumed. Repeat troponin X 3 were negative. During admission patient had bouts of chest pain at which time patient's Coreg was increased to 6.25 mg twice daily. Patient also states that he had a nuclear stress test on November 14 but the report had not been verified by cardiology yet. For closer monitoring patient was transferred to the ICU for 1 day. Patient stress test was reviewed by cardiology on 11-17-20, patient was cleared to go home by cardiology due to no significant findings on stress test studies. Patient discharged home on 6.25 mg twice daily Coreg. - Discharge Data Discharge Date: 11/17/20 Discharge Disposition: Home, Self-Care 01 Condition: Good - Referral to Home Health Primary Care Physician: PCP None - Discharge Diagnosis/Problem(s) (1) Chest pain SNOMED Code(s): 16137706 ICD Code: R07.9 - CHEST PAIN, UNSPECIFIED Status: Acute Qualifiers: Chest pain type: unspecified Qualified Code(s): R07.9 - Chest pain, unspecified (2) Atypical chest pain SNOMED Code(s): 581368141 ICD Code: R07.89 - OTHER CHEST PAIN Status: Acute Priority: High (3) History of coronary angioplasty with insertion of stent SNOMED Code(s): 271695229, 178658695, 887200702 ICD Code: Z95.5 - PRESENCE OF CORONARY ANGIOPLASTY IMPLANT AND GRAFT Status: Acute (4) History of coronary artery disease SNOMED Code(s): 586978115 ICD Code: Z86.79 - PERSONAL HISTORY OF OTHER DISEASES OF THE CIRCULATORY SYSTEM Status: Acute (5) Chest pain, rule out acute myocardial infarction SNOMED Code(s): 66235954 ICD Code: R07.9 - CHEST PAIN, UNSPECIFIED Status: Chronic Priority: Mediu m (6) Coronary artery disease SNOMED Code(s): 35837802 ICD Code: I25.10 - ATHSCL HEART DISEASE OF [place] CORONARY ARTERY 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 YOUR CARVEDILOL MEDICATION DOSAGE WAS INCREASED TO 6.25mg TWICE DAILY. PLEASE REVIEW WITH YOUR PCP AT NEXT VISIT. REPORT ANY SYMPTOMS OF WEAKNESS, DIZZINESS, NAUSEA, LIGHTHEADEDNESS TO YOUR PCP AND POLYSOM TECH. - Discharge Plan *PRESCRIPTION DRUG MONITORING PROGRAM REVIEWED*: Not Applicable *COPY OF PRESCRIPTION DRUG MONITORING REPORT IN PATIENT SWEETIE: Not Applicable Prescriptions/Med Rec: carvediloL [Coreg] 6.25 mg PO BID 21 Days #42 tablet Home Medications: Home Meds Pantoprazole [ProTONIX] 40 mg PO DAILY 09/22/16 [History] Pravastatin [Pravachol] 80 mg PO BEDTIME 09/22/16 [History] Clopidogrel [Plavix] 75 mg PO DAILY 04/19/17 [History] PARoxetine [Paxil] 40 mg PO BEDTIME 04/19/17 [History] Aspirin [Halfprin] 81 mg PO DAILY #0 tab.ec 04/20/17 [Rx] Nitroglycerin [Nitrostat] 0.4 mg SL Q5M PRN MDD 3 03/07/18 [History] Ranolazine [Ranexa] 500 mg PO BID 01/14/19 [History] levETIRAcetam [Levetiracetam] 500 mg PO BID 01/14/19 [History] carvediloL [Coreg] 6.25 mg PO BID 21 Days #42 tablet 11/17/20 [Rx] Patient Handouts: Carvedilol Tablets, Nonspecific Chest Pain, Adult, [id number] Referrals: Bo Lopez MD [Physician] - (Please call Dr. Joseph for follow-up appointment) Yaniv Sevilla MD [Physician] - 11/26/20 11:00 am - Discharge Summary/Plan Comment DC Time >30 min.: Yes - Review of Systems Pulmonary: Denies: Shortness of Breath, Cough Cardiovascular: Denies: Chest Pain, Edema Gastrointestinal: Denies: Abdominal Pain, Nausea, Vomiting Neurological: Denies: Confusion, Dizziness, Headache - Patient Data Vitals - Most Recent: Last Vital Signs Temp 97.7 F 11/17/20 12:00 Pulse 65 11/17/20 08:57 Resp 15 11/17/20 13:00 BP 119/68 11/17/20 13:00 Pulse Ox 94 L 11/17/20 13:00 Weight - Most Recent: 64.501 kg I&O - Last 24 hours: Intake & Output 11/16/20 11/17/20 11/17/20 22:59 06:59 14:59 Intake Total 450 370 Output Total 500 600 Balance -50 -230 Lab Results - Last 24 hrs: Laboratory Results - last 24 hr 11/17/20 11/17/20 Range/Units 08:15 08:15 WBC 4.31 (4.0-11.0) K/uL RBC 4.20 L (4.50-5.90) M/uL Hgb 11.8 L (13.0-17.0) g/dL Hct 36.6 L (38.0-50.0) % MCV 87.1 (80.0-98.0) fL MCH 28.1 (27.0-32.0) pg MCHC 32.2 (31.0-37.0) g/dL RDW Std Deviation 46.2 (28.0-62.0) fl RDW Coeff of Ethan 15 (11.0-15.0) % Plt Count 221 (150-400) K/uL MPV 9.80 (7.40-12.00) fL Neut % (Auto) 59.0 (48.0-80.0) % Lymph % (Auto) 25.3 (16.0-40.0) % Bond % (Auto) 11.6 (0.0-15.0) % Eos % (Auto) 3.9 (0.0-7.0) % Baso % (Auto) 0.2 (0.0-1.5) % Neut # (Auto) 2.5 (1.4-5.7) K/uL Lymph # (Auto) 1.1 (0.6-2.4) K/uL Bond # (Auto) 0.5 (0.0-0.8) K/uL Eos # (Auto) 0.2 (0.0-0.7) K/uL Baso # (Auto) 0.0 (0.0-0.1) K/uL Nucleated RBC % 0.0 /100WBC Nucleated RBCs # 0 K/uL Sodium 140 (136-148) mmol/L Potassium 4.0 (3.5-5.1) mmol/L Chloride 105 (98-107) mmol/L Carbon Dioxide 29.3 (21.0-32.0) mmol/L BUN 18 (7.0-18.0) mg/dL Creatinine 1.0 (0.8-1.3) mg/dL Est Cr Clr Drug Dosing 60.02 mL/min Estimated GFR (MDRD) > 60.0 ml/min Glucose 99 (74-106) mg/dL Calcium 8.5 (8.5-10.1) mg/dL Med Orders - Current: Current Medications Discontinued Medications Aspirin (Aspirin 81 Mg Tab.Ec) 81 mg PO DAILY [facility] Last Admin: 11/17/20 08:57 Dose: 81 mg Documented by: Carvedilol (Carvedilol 3.125 Mg Tab) 3.125 mg PO BID [facility] Stop: 11/16/20 08:00 Last Admin: 11/15/20 13:58 Dose: 3.125 mg Documented by: Carvedilol (Carvedilol 6.25 Mg Tab) 6.25 mg PO ONETIME ONE Stop: 11/16/20 08:01 Carvedilol (Carvedilol 3.125 Mg Tab) 3.125 mg PO ONETIME ONE Stop: 11/16/20 00:06 Carvedilol (Carvedilol 6.25 Mg Tab) 6.25 mg PO BID [facility] Carvedilol (Carvedilol 6.25 Mg Tab) 6.25 mg PO BID [facility] Last Admin: 11/17/20 08:57 Dose: 6.25 mg Documented by: Clopidogrel Bisulfate (Clopidogrel 75 Mg Tab) 75 mg PO DAILY [facility] Last Admin: 11/17/20 08:56 Dose: 75 mg Documented by: Magnesium Sulfate 2 gm/ Premix 50 mls @ 12.5 mls/hr IV ONETIME ONE Stop: 11/15/20 18:18 Last Admin: 11/15/20 14:32 Dose: 12.5 mls/hr Documented by: Nitroglycerin/Dextrose (Nitroglycerin 25 Mg/D5w 250 Ml) 25 mg in 250 mls @ 3 mls/hr IV TITRATE [facility]; Protocol Last Titration: 11/15/20 23:36 Dose: 0 mcg/min, 0 mls/hr Documented by: Iopamidol (Iopamidol 755 Mg/Ml 100 Ml Bottle) 75 ml IVPUSH ONETIME ONE Stop: 11/16/20 00:52 Last Admin: 11/16/20 00:52 Dose: 75 ml Documented by: Levetiracetam (Levetiracetam 500 Mg Tab) 500 mg PO BID [facility] Last Admin: 11/17/20 08:57 Dose: 500 mg Documented by: Morphine Sulfate (Morphine 4 Mg/Ml Syringe) 4 mg IVPUSH ONETIME ONE Stop: 11/14/20 22:17 Last Admin: 11/14/20 22:52 Dose: 4 mg Documented by: Morphine Sulfate (Morphine 4 Mg/Ml Syringe) 4 mg IVPUSH ONETIME ONE Stop: 11/15/20 00:10 Last Admin: 11/15/20 00:14 Dose: 4 mg Documented by: Morphine Sulfate (Morphine 2 Mg/Ml Syringe) 2 mg IVPUSH Q3H PRN PRN Reason: Chest Pain Last Admin: 11/17/20 00:25 Dose: 2 mg Documented by: Nitroglycerin (Nitroglycerin 0.4 Mg Tab.Sl) 0.4 mg SL Q5M PRN PRN Reason: Chest Pain Last Admin: 11/15/20 00:04 Dose: 0.4 mg Documented by: Nitroglycerin (Nitroglycerin 0.4 Mg Tab.Sl) 0.4 mg SL Q5M PRN PRN Reason: Chest Pain Pantoprazole Sodium (Pantoprazole 40 Mg Tab.Cr) 40 mg PO ACBREAKFAST [facility] Last Admin: 11/17/20 07:45 Dose: 40 mg Documented by: Paroxetine HCl (Paroxetine 20 Mg Tab) 40 mg PO BEDTIME [facility] Last Admin: 11/16/20 20:35 Dose: 40 mg Documented by: Pravastatin Sodium (Pravastatin 40 Mg Tab) 80 mg PO BEDTIME [facility] Last Admin: 11/16/20 20:35 Dose: 80 mg Documented by: Ranolazine (Ranolazine 500 Mg Tab.Er) 500 mg PO BID [facility] Last Admin: 11/17/20 08:57 Dose: 500 mg Documented by: Sodium Chloride (Sodium Chloride 0.9% 10 Ml Syringe) 10 ml FLUSH ASDIRECTED PRN PRN Reason: Keep Vein Open Sodium Chloride (Sodium Chloride 0.9% 2.5 Ml Syringe) 2.5 ml FLUSH ASDIRECTED PRN PRN Reason: Keep Vein Open - Exam Lungs: Reports: Clear to Auscultation, Normal Respiratory Effort Cardiovascular: Reports: Regular Rate, Regular Rhythm GI/Abdominal Exam: Soft, Non-Tender <Benito Carrasco J - Last Filed: 11/18/20 19:41> Discharge Summary - Referral to Home Health Primary Care Physician: PCP None - Patient Data Vitals - Most Recent: Last Vital Signs Temp 36.5 C 11/17/20 12:00 Pulse 65 11/17/20 08:57 Resp 15 11/17/20 13:00 BP 119/68 11/17/20 13:00 Pulse Ox 94 L 11/17/20 13:00 Med Orders - Current: Current Medications Discontinued Medications Aspirin (Aspirin 81 Mg Tab.Ec) 81 mg PO DAILY [facility] Last Admin: 11/17/20 08:57 Dose: 81 mg Documented by: Carvedilol (Carvedilol 3.125 Mg Tab) 3.125 mg PO BID [facility] Stop: 11/16/20 08:00 Last Admin: 11/15/20 13:58 Dose: 3.125 mg Documented by: Carvedilol (Carvedilol 6.25 Mg Tab) 6.25 mg PO ONETIME ONE Stop: 11/16/20 08:01 Carvedilol (Carvedilol 3.125 Mg Tab) 3.125 mg PO ONETIME ONE Stop: 11/16/20 00:06 Carvedilol (Carvedilol 6.25 Mg Tab) 6.25 mg PO BID [facility] Carvedilol (Carvedilol 6.25 Mg Tab) 6.25 mg PO BID [facility] Last Admin: 11/17/20 08:57 Dose: 6.25 mg Documented by: Clopidogrel Bisulfate (Clopidogrel 75 Mg Tab) 75 mg PO DAILY [facility] Last Admin: 11/17/20 08:56 Dose: 75 mg Documented by: Magnesium Sulfate 2 gm/ Premix 50 mls @ 12.5 mls/hr IV ONETIME ONE Stop: 11/15/20 18:18 Last Admin: 11/15/20 14:32 Dose: 12.5 mls/hr Documented by: Nitroglycerin/Dextrose (Nitroglycerin 25 Mg/D5w 250 Ml) 25 mg in 250 mls @ 3 mls/hr IV TITRATE [facility]; Protocol Last Titration: 11/15/20 23:36 Dose: 0 mcg/min, 0 mls/hr Documented by: Iopamidol (Iopamidol 755 Mg/Ml 100 Ml Bottle) 75 ml IVPUSH ONETIME ONE Stop: 11/16/20 00:52 Last Admin: 11/16/20 00:52 Dose: 75 ml Documented by: Levetiracetam (Levetiracetam 500 Mg Tab) 500 mg PO BID [facility] Last Admin: 11/17/20 08:57 Dose: 500 mg Documented by: Morphine Sulfate (Morphine 4 Mg/Ml Syringe) 4 mg IVPUSH ONETIME ONE Stop: 11/14/20 22:17 Last Admin: 11/14/20 22:52 Dose: 4 mg Documented by: Morphine Sulfate (Morphine 4 Mg/Ml Syringe) 4 mg IVPUSH ONETIME ONE Stop: 11/15/20 00:10 Last Admin: 11/15/20 00:14 Dose: 4 mg Documented by: Morphine Sulfate (Morphine 2 Mg/Ml Syringe) 2 mg IVPUSH Q3H PRN PRN Reason: Chest Pain Last Admin: 11/17/20 00:25 Dose: 2 mg Documented by: Nitroglycerin (Nitroglycerin 0.4 Mg Tab.Sl) 0.4 mg SL Q5M PRN PRN Reason: Chest Pain Last Admin: 11/15/20 00:04 Dose: 0.4 mg Documented by: Nitroglycerin (Nitroglycerin 0.4 Mg Tab.Sl) 0.4 mg SL Q5M PRN PRN Reason: Chest Pain Pantoprazole Sodium (Pantoprazole 40 Mg Tab.Cr) 40 mg PO ACBREAKFAST [facility] Last Admin: 11/17/20 07:45 Dose: 40 mg Documented by: Paroxetine HCl (Paroxetine 20 Mg Tab) 40 mg PO BEDTIME [facility] Last Admin: 11/16/20 20:35 Dose: 40 mg Documented by: Pravastatin Sodium (Pravastatin 40 Mg Tab) 80 mg PO BEDTIME [facility] Last Admin: 11/16/20 20:35 Dose: 80 mg Documented by: Ranolazine (Ranolazine 500 Mg Tab.Er) 500 mg PO BID [facility] Last Admin: 11/17/20 08:57 Dose: 500 mg Documented by: Sodium Chloride (Sodium Chloride 0.9% 10 Ml Syringe) 10 ml FLUSH ASDIRECTED PRN PRN Reason: Keep Vein Open Sodium Chloride (Sodium Chloride 0.9% 2.5 Ml Syringe) 2.5 ml FLUSH ASDIRECTED PRN PRN Reason: Keep Vein Open - Free Text/Narrative Note: I have seen and examined the patient with the resident. I have discussed findings and treatment plan with resident. I agree with the assessment and plan as outlined in the following note.
== END 2020-11-17 13:00 | disposition home or self-care (01) | DRG 313 ==
LOC: MW.ED 22:08 → MW.MS 11-15 02:05 → OBSVTOIN 11-15 20:41 → MW.ICU 11-15 20:42
PROVIDERS: ADMIT Internal Medicine; ATTEND Internal Medicine
DX: R07.9 Chest pain, unspecified (principal); R07.89 Other chest pain; I25.10 Atherosclerotic heart disease of native coronary artery without angina pectoris; E78.00 Pure hypercholesterolemia, unspecified; I10 Essential (primary) hypertension; H54.7 Unspecified visual loss; F41.9 Anxiety disorder, unspecified; M47.9 Spondylosis, unspecified; F32.9 Major depressive disorder, single episode, unspecified; E11.9 Type 2 diabetes mellitus without complications; Z79.01 Long term (current) use of anticoagulants; Z79.02 Long term (current) use of antithrombotics/antiplatelets; I25.2 Old myocardial infarction; Z95.5 Presence of coronary angioplasty implant and graft; Z20.822 Contact with and (suspected) exposure to COVID-19; Z86.79 Personal history of other diseases of the circulatory system; Z79.82 Long term (current) use of aspirin; Z79.899 Other long term (current) drug therapy; Z90.89 Acquired absence of other organs; Z90.49 Acquired absence of other specified parts of digestive tract; Z87.891 Personal history of nicotine dependence
CPT/HCPCS: 36415 ×2; 71045; 80048; 80053; 82947; 83735; 84484 ×5; 85025 ×2; 93005 ×2; A9270 ×11; J2270 ×5; J3475; U0002; 71275; 71275-26; 96374; 96376; 99285-25; J3490; Q9967

== ENCOUNTER 2020-11-30 04:06 | Inpatient (IN) | payer MEDICARE ==
--- NOTE | 2020-11-30 04:15 | EDM.PDOC ---
<Federico Issa - Last Filed: 11/30/20 04:49> ED HPI GENERAL MEDICAL PROBLEM - General Chief Complaint: Chest Pain Stated Complaint: CHEST PAIN Time Seen by Provider: 11/30/20 04:11 Source of Information: Reports: Patient History Limitations: Reports: No Limitations - History of Present Illness INITIAL COMMENTS - FREE TEXT/NARRATIVE: Patient is a 75-year-old male with extensive cardiac history is brought to the hospital multiple times for chest pain presents today for chest pain. Patient states he normally gets chest pain when he drinks and patient was drinking tonight. Patient is frustrated because he always comes to the hospital for chest pain and a admit into work-up he states he never find anything wrong with him. Patient does feel like his normal chest pain substernal nonradiating not made better with any events he denies any shortness of breath fevers or chills or other complaints. - Related Data Allergies Allergy/AdvReac Type Severity Reaction Status Date / Time No Known Allergies Allergy Verified 11/30/20 08:49 Home Meds: Home Meds Pantoprazole [ProTONIX] 40 mg PO DAILY 09/22/16 [History] Pravastatin [Pravachol] 80 mg PO BEDTIME 09/22/16 [History] Clopidogrel [Plavix] 75 mg PO DAILY 04/19/17 [History] PARoxetine [Paxil] 40 mg PO BEDTIME 04/19/17 [History] Aspirin [Halfprin] 81 mg PO DAILY #0 tab.ec 04/20/17 [Rx] Nitroglycerin [Nitrostat] 0.4 mg SL Q5M PRN MDD 3 03/07/18 [History] Ranolazine [Ranexa] 500 mg PO BID 01/14/19 [History] levETIRAcetam [Levetiracetam] 500 mg PO BID 01/14/19 [History] carvediloL [Coreg] 6.25 mg PO BID 21 Days #42 tablet 11/17/20 [Rx] Past Medical History - Past Health History Medical/Surgical History: Denies Medical/Surgical History HEENT History: Reports: Impaired Vision, Other (See Below) Other HEENT History: uses reading glasses Cardiovascular History: Reports: CAD, High Cholesterol, Hypertension, LA, Stents, Other (See Below) Other Cardiovascular History: LA in 2009 Respiratory History: Reports: None Gastrointestinal History: Reports: None Genitourinary History: Reports: None Musculoskeletal History: Reports: None Other Musculoskeletal History: has arthritis in back Neurological History: Reports: Vertigo, Other (See Below) Other Neuro History: hx of Claustrophobia Psychiatric History: Reports: Anxiety, Depression, Other (See Below) Other Psychiatric History: Claustrophobia 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, Type II Insulin Pump Model and [employer]: None Hematologic History: Reports: Anticoagulation Therapy Immunologic History: Reports: None Oncologic (Cancer) History: Reports: None Dermatologic History: Reports: None - Infectious Disease History Infectious Disease History: Reports: Chicken Pox, Measles, Mumps - Past Surgical History Head Surgeries/Procedures: Reports: None HEENT Surgical History: Reports: Oral Surgery, Tonsillectomy, Other (See Below) Other HEENT Surgeries/Procedures: dental extractions, enlarged lymph nodes removed from neck Cardiovascular Surgical History: Reports: Coronary Artery Stent Other Cardiovascular Surgeries/Procedures: Stents x3 Respiratory Surgical History: Reports: None GI Surgical History: Reports: Appendectomy Male Surgical History: Reports: None Endocrine Surgical History: Reports: None Musculoskeletal Surgical History: Reports: None Oncologic Surgical History: Reports: None Dermatological Surgical History: Reports: None Social & Family History - Family History Family Medical History: No Pertinent Family History Cardiac: Reports: LA Respiratory: Reports: None Endocrine/Metabolic: Reports: Diabetes, Type I Hematologic: Reports: None Oncologic: Reports: Other (See Below) Other Oncologic Family History: Father side has cancer but patient doesn't know exactly what kind of CA - Caffeine Use Caffeine Use: Reports: None Other Caffeine Use: decaf Caffeine Use Comment: daily - Living Situation & Occupation Living situation: Reports: Occupation: Retired ED ROS GENERAL - Review of Systems Review Of Systems: See Below Constitutional: Reports: No Symptoms HEENT: Reports: No Symptoms Respiratory: Reports: No Symptoms Cardiovascular: Reports: Chest Pain Endocrine: Reports: No Symptoms GI/Abdominal: Reports: No Symptoms : Reports: No Symptoms Musculoskeletal: Reports: No Symptoms Skin: Reports: No Symptoms Neurological: Reports: No Symptoms Psychiatric: Reports: No Symptoms Hematologic/Lymphatic: Reports: No Symptoms Immunologic: Reports: No Symptoms ED EXAM, GENERAL - Physical Exam Exam: See Below Exam Limited By: No Limitations General Appearance: Alert, WD/WN, No Apparent Distress Respiratory/Chest: No Respiratory Distress, Lungs Clear, Normal Breath Sounds Cardiovascular: Normal Peripheral Pulses, Regular Rate, Rhythm GI/Abdominal: Normal Bowel Sounds, Soft, Non-Tender Extremities: Normal Inspection, Normal Range of Motion Neurological: Alert, Oriented #1 Interpretation EKG Date: 11/30/20 Time: 04:05 Rhythm: NSR Rate (Beats/Min): 66 ST-T: Normal Course - Re-Assessments/Exams Free Text/Narrative Re-Assessment/Exam: 11/30/20 04:49 We spoke to the hospitalist at the [facility] about patient she and I both know patient well patient has a stated history. Due to this you want to set troponin before she assessed patient. We will repeat troponins at 7 am and if negative can be admitted to the hospital. Departure - Departure Disposition: Admitted As Inpatient 68 Condition: Good Clinical Impression: Chest pain Qualifiers: Chest pain type: unspecified Qualified Code(s): R07.9 - Chest pain, unspecified - Assessment/Plan Plan: Patient is a 75-year-old male presents today for chest pain. Patient says he never gets chest pain after drinking he had a few drinks tonight. Patient does have 4 stents in the center cardiac history. Based on this we will get troponins EKG and likely admit to observation. <Dylon Foreman - Last Filed: 11/30/20 18:03> ED HPI GENERAL MEDICAL PROBLEM - History of Present Illness INITIAL COMMENTS - FREE TEXT/NARRATIVE: Patient was signed out to me by Dr. Issa pending repeat troponin at 7 AM. If the troponin is negative Dr. Issa had already arranged admission. I did reevaluate the patient and patient was stable. He was requesting pain medication. I offered Napoleon which the patient accepted. Laboratory: Repeat troponin negative DISPOSITION: Patient was admitted to the hospital in stable condition CONDITION: Fair PROCEDURES: None FINAL IMPRESSION(S)/DIAGNOSES: 1. Acute chest pain Dylon Foreman M.D. Course - Vital Signs Last Recorded V/S: Last Vital Signs Temp 36.6 C 11/30/20 15:53 Pulse 67 11/30/20 15:53 Resp 16 11/30/20 15:53 BP 109/71 11/30/20 15:53 Pulse Ox 95 11/30/20 15:53 - Orders/Labs/Meds Orders: Active Orders 24 hr Category Date Time Status EKG Documentation Completion [RC] STAT Care 11/30/20 04:13 Active Medication Orders Acetaminophen (Acetaminophen 325 Mg Tab) 650 mg PO Q4H PRN PRN Reason: Pain (Mild 1-3)/fever Albuterol/Ipratropium (Albuterol/Ipratropium 3.0-0.5 Mg/3 Ml Neb Soln) 3 ml NEB Q4HRRT PRN PRN Reason: Shortness Of Breath/wheezing Aspirin (Aspirin 81 Mg Tab.Ec) 81 mg PO DAILY [facility] Carvedilol (Carvedilol 6.25 Mg Tab) 6.25 mg PO BID [facility] Clopidogrel Bisulfate (Clopidogrel 75 Mg Tab) 75 mg PO DAILY [facility] Levetiracetam (Levetiracetam 500 Mg Tab) 500 mg PO BID [facility] Morphine Sulfate (Morphine 2 Mg/Ml Syringe) 1 mg IVPUSH Q4H PRN PRN Reason: Chest Pain Last Admin: 11/30/20 12:52 Dose: 1 mg Documented by: DANILO Nitroglycerin (Nitroglycerin 0.4 Mg Tab.Sl) 0.4 mg SL Q5M PRN PRN Reason: Chest Pain Ondansetron HCl (Ondansetron 4 Mg/2 Ml Sdv) 4 mg IVPUSH Q4H PRN PRN Reason: Nausea/Vomiting Pantoprazole Sodium (Pantoprazole 40 Mg Tab.Cr) 40 mg PO DAILY [facility] Last Admin: 11/30/20 15:54 Dose: 40 mg Documented by: DANILO Paroxetine HCl (Paroxetine 20 Mg Tab) 40 mg PO BEDTIME [facility] Pravastatin Sodium (Pravastatin 40 Mg Tab) 80 mg PO BEDTIME [facility] Ranolazine (Ranolazine 500 Mg Tab.Er) 500 mg PO BID [facility] Labs: Laboratory Tests 11/30/20 11/30/20 11/30/20 Range/Units 04:15 04:15 04:45 WBC 5.15 (4.0-11.0) K/uL RBC 4.13 L (4.50-5.90) M/uL Hgb 11.7 L (13.0-17.0) g/dL Hct 35.2 L (38.0-50.0) % MCV 85.2 (80.0-98.0) fL MCH 28.3 (27.0-32.0) pg MCHC 33.2 (31.0-37.0) g/dL RDW Std Deviation 45.7 (28.0-62.0) fl RDW Coeff of Ethan 15 (11.0-15.0) % Plt Count 242 (150-400) K/uL MPV 9.70 (7.40-12.00) fL Neut % (Auto) 56.0 (48.0-80.0) % Lymph % (Auto) 28.7 (16.0-40.0) % [place] % (Auto) 13.2 (0.0-15.0) % Eos % (Auto) 1.9 (0.0-7.0) % Baso % (Auto) 0.2 (0.0-1.5) % Neut # (Auto) 2.9 (1.4-5.7) K/uL Lymph # (Auto) 1.5 (0.6-2.4) K/uL [place] # (Auto) 0.7 (0.0-0.8) K/uL Eos # (Auto) 0.1 (0.0-0.7) K/uL Baso # (Auto) 0.0 (0.0-0.1) K/uL Nucleated RBC % 0.0 /100WBC Nucleated RBCs # 0 K/uL Sodium 142 (136-148) mmol/L Potassium 3.7 (3.5-5.1) mmol/L Chloride 102 (98-107) mmol/L Carbon Dioxide 27.4 (21.0-32.0) mmol/L BUN 21 H (7.0-18.0) mg/dL Creatinine 1.1 (0.8-1.3) mg/dL Est Cr Clr Drug Dosing TNP Estimated GFR (MDRD) > 60.0 ml/min Glucose 118 H (74-106) mg/dL Calcium 8.3 L (8.5-10.1) mg/dL Total Bilirubin 0.4 (0.2-1.0) mg/dL AST 17 (15-37) IU/L ALT 16 (14-63) IU/L Alkaline Phosphatase 78 (46-116) U/L Creatine Kinase 96 (26-308) U/L Troponin I < 0.050 (0.000-0.056) ng/mL Total Protein 6.7 (6.4-8.2) g/dL Albumin 3.5 (3.4-5.0) g/dL Globulin 3.2 (2.6-4.0) g/dL Albumin/Globulin Ratio 1.1 (0.9-1.6) Lipase 59 L (73-393) U/L SARS-CoV-2 RNA (WENDY) NEGATIVE (NEGATIVE) Meds: Medications Generic Name Dose Route Start Last Admin Trade Name Freq PRN Reason Stop Dose Admin Acetaminophen 650 mg 11/30/20 09:37 Acetaminophen 325 Mg Tab PO Q4H PRN Pain (Mild 1-3)/fever Albuterol/Ipratropium 3 ml 11/30/20 09:37 Albuterol/Ipratropium 3.0-0.5 Mg/3 Ml Neb Soln NEB Q4HRRT PRN Shortness Of Breath/wheezing Aspirin 81 mg 12/01/20 09:00 Aspirin 81 Mg Tab.Ec PO DAILY [facility] Carvedilol 6.25 mg 11/30/20 21:00 Carvedilol 6.25 Mg Tab PO BID [facility] Clopidogrel Bisulfate 75 mg 12/01/20 09:00 Clopidogrel 75 Mg Tab PO DAILY [facility] Levetiracetam 500 mg 11/30/20 21:00 Levetiracetam 500 Mg Tab PO BID [facility] Morphine Sulfate 1 mg 11/30/20 09:40 11/30/20 12:52 Morphine 2 Mg/Ml Syringe IVPUSH 1 mg Q4H PRN Administration Chest Pain Nitroglycerin 0.4 mg 11/30/20 14:00 Nitroglycerin 0.4 Mg Tab.Sl SL Q5M PRN Chest Pain Ondansetron HCl 4 mg 11/30/20 09:37 Ondansetron 4 Mg/2 Ml Sdv IVPUSH Q4H PRN Nausea/Vomiting Pantoprazole Sodium 40 mg 11/30/20 14:15 11/30/20 15:54 Pantoprazole 40 Mg Tab.Cr PO 40 mg DAILY ERICK Administration Paroxetine HCl 40 mg 11/30/20 21:00 Paroxetine 20 Mg Tab PO BEDTIME [facility] Pravastatin Sodium 80 mg 11/30/20 21:00 Pravastatin 40 Mg Tab PO BEDTIME [facility] Ranolazine 500 mg 11/30/20 21:00 Ranolazine 500 Mg Tab.Er PO BID ERICK Discontinued Medications Generic Name Dose Route Start Last Admin Trade Name Freq PRN Reason Stop Dose Admin Hydrocodone Bitart/Acetaminophen 1 tab 11/30/20 07:40 11/30/20 07:54 Acetaminophen/Hydrocodone 325-5 Mg Tab PO 11/30/20 07:41 1 tab ONETIME ONE Administration Aspirin 324 mg 11/30/20 06:53 11/30/20 06:59 Aspirin 81 Mg Tab.Chew PO 11/30/20 06:54 Not Given ONETIME ONE Departure - Departure Time of Disposition: 06:53 Sepsis Event Note (ED) - Focused Exam Vital Signs: Vital Signs Pulse Resp BP Pulse Ox 11/30/20 06:48 82 15 138/85 97
[2020-11-30 04:47] LABS: BLOOD UREA NITROGEN,BUN 21 mg/dL (7.0-18.0); CARBON DIOXIDE,CO2 27.4 mmol/L (21.0-32.0); CHLORIDE,CL 102 mmol/L (98-107); GLUCOSE RANDOM 118 mg/dL (74-106); LIPASE 59 U/L (73-393); POTASSIUM,K 3.7 mmol/L (3.5-5.1); SODIUM,NA 142 mmol/L (136-148)
--- NOTE | 2020-11-30 05:30 | CR ---
INDICATION: Chest pain TECHNIQUE: Portable AP view of the chest COMPARISON: AP chest radiograph 11/14/2020 FINDINGS: The lungs are clear. There is no sizable pleural effusion or pneumothorax. The cardiomediastinal silhouette is stable. The visualized osseous structures are unremarkable. IMPRESSION: No acute intrathoracic process. Dictated by Ana Rosa Blake MD @ 11/30/2020 5:28:[address] Ana Rosa Blake @ Nov 30 2020 5:28AM
[2020-11-30] MEDS ORDERED: Aspirin 81 MG Tab.Chew PO ONE (06:53)
[2020-11-30] MEDS ORDERED: Acetaminophen/HYDROcodone 325-5 MG Tab PO ONE (07:40)
[2020-11-30] MEDS ORDERED: Ondansetron 4 MG/2 ML SDV IVPUSH PRN (09:37)
[2020-11-30] MEDS ORDERED: Albuterol/Ipratropium 3.0-0.5 MG/3 ML Neb Soln NEB PRN (09:37)
[2020-11-30] MEDS ORDERED: Acetaminophen 325 MG Tab PO PRN (09:37)
[2020-11-30] MEDS: Morphine 2 MG/ML SYRINGE IVPUSH PRN ×2 (12:52→19:38)
--- NOTE | 2020-11-30 12:58 | PCM.HP.2 ---
H&P History of Present Illness - General Date of Service: 11/30/20 Admit Problem/Dx: Admission Diagnosis/Problem Admission Diagnosis/Problem Chest pain in adult - History of Present Illness Initial Comments - Free Text/Narative: 75-year-old male with past medical history of CAD, HLD, hypertension, MS in 2009, 3 stents, and recent admission for ACS rule out, discharged 11/17/2020 presents to the ED after being awoken by chest pain. Patient states that he was sleeping and was awoken when he began experiencing nonradiating, sharp, substernal 6/10 left-sided chest pain. He took aspirin and nitroglycerin with no relief. His called the ambulance and was brought to the ER. Denies associated shortness of breath, palpitations, headaches, weakness, fever, chills, abdominal pain, nausea, vomiting or diarrhea. Denies any aggravating factors for chest pain. He does endorse drinking 3 beers on Tuesday night which is unusual for him. Patient was recently discharged for a similar episode on 11/17/2020 where t roponins were negative x4 and EKG was unremarkable except for a conduction delay. Patient's carvedilol was increased to 6.25 mg twice daily. Patient continued to have episodes of chest pain and was transferred to the ICU. His nitroglycerin and Coreg were held for low blood pressure. He was seen by cardiology who reviewed his nuclear stress test that was conducted outpatient on 11/14/2020. Patient was cleared to go home by cardiology due to no significant findings on the stress test studies. He was discharged on Coreg 6.25 mg bid. Patient states that he has since been compliant with his medications. ER course: EKG normal sinus rhythm. Temperature 97.2. Pulse 90. RR 20. 138/80. WBC 5. Hemoglobin 11.7. Platelet 242. Sodium 142. Potassium 3.7. BUN 21. Creatinine 1.1. Glucose 118. Calcium 8.3. ALP 78. CK 96. Troponin negative. Lipase 59. Aspirin 325 mg. Chest x-ray shows no acute cardiopulmonary process. SARS-CoV-2 negative. Past medical history: CAD, hyperlipidemia, HTN, MS 2009, stents x4, anxiety, depression Home medications: Pantoprazole 40 mg daily. Paroxetine 40 mg daily. Keppra 500 mg bid. Pravastatin 80 mg daily. Plavix 75 mg daily. Aspirin 81 mg daily. Ranolazine 500 mg bid. Carvedilol 6.25 mg bid. Nitroglycerin SL 0.4 mg prn. Allergies: No known drug allergies Social history: Denies smoking. Drinks beer socially. Tuesday night had 3 beers after a very long time. Lives at home with his . CODE STATUS: Full code - Related Data Allergies/Adverse Reactions: Allergies Allergy/AdvReac Type Severity Reaction Status Date / Time No Known Allergies Allergy Verified 11/30/20 08:49 Home Medications: Home Meds Pantoprazole [ProTONIX] 40 mg PO DAILY 09/22/16 [History] Pravastatin [Pravachol] 80 mg PO BEDTIME 09/22/16 [History] Clopidogrel [Plavix] 75 mg PO DAILY 04/19/17 [History] PARoxetine [Paxil] 40 mg PO BEDTIME 04/19/17 [History] Aspirin [Halfprin] 81 mg PO DAILY #0 tab.ec 04/20/17 [Rx] Nitroglycerin [Nitrostat] 0.4 mg SL Q5M PRN MDD 3 03/07/18 [History] Ranolazine [Ranexa] 500 mg PO BID 01/14/19 [History] levETIRAcetam [Levetiracetam] 500 mg PO BID 01/14/19 [History] carvediloL [Coreg] 6.25 mg PO BID 21 Days #42 tablet 11/17/20 [Rx] Past Medical History - Past Health History Medical/Surgical History: Denies Medical/Surgical History HEENT History: Reports: Impaired Vision, Other (See Below) Other HEENT History: uses reading glasses Cardiovascular History: Reports: CAD, High Cholesterol, Hypertension, MS, Stents, Other (See Below) Other Cardiovascular History: MS in 2009 Respiratory History: Reports: None Gastrointestinal History: Reports: None Genitourinary History: Reports: None Musculoskeletal History: Reports: None Other Musculoskeletal History: has arthritis in back Neurological History: Reports: Vertigo, Other (See Below) Other Neuro History: hx of Claustrophobia Psychiatric History: Reports: Anxiety, Depression, Other (See Below) Other Psychiatric History: Claustrophobia 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, Type II 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 Hematologic History: Reports: Anticoagulation Therapy Immunologic History: Reports: None Oncologic (Cancer) History: Reports: None Dermatologic History: Reports: None - Infectious Disease History Infectious Disease History: Reports: Chicken Pox, Measles, Mumps - Past Surgical History Head Surgeries/Procedures: Reports: None HEENT Surgical History: Reports: Oral Surgery, Tonsillectomy, Other (See Below) Other HEENT Surgeries/Procedures: dental extractions, enlarged lymph nodes removed from neck Cardiovascular Surgical History: Reports: Coronary Artery Stent Other Cardiovascular Surgeries/Procedures: Stents x3 Respiratory Surgical History: Reports: None GI Surgical History: Reports: Appendectomy Male Surgical History: Reports: None Endocrine Surgical History: Reports: None Musculoskeletal Surgical History: Reports: None Oncologic Surgical History: Reports: None Dermatological Surgical History: Reports: None Social & Family History - Family History Family Medical History: No Pertinent Family History Cardiac: Reports: MS Respiratory: Reports: None Endocrine/Metabolic: Reports: Diabetes, Type I Hematologic: Reports: None Oncologic: Reports: Other (See Below) Other Oncologic Family History: Father side has cancer but patient doesn't know exactly what kind of CA - Caffeine Use Caffeine Use: Reports: None Other Caffeine Use: decaf Caffeine Use Comment: daily - Recreational Drug Use Recreational Drug Use: No - Living Situation & Occupation Living situation: Reports: Occupation: Retired H&P Review of Systems - Review of Systems: Review Of Systems: Comprehensive ROS is negative, except as noted in HPI. Exam - Exam Exam: See Below - Vital Signs Vital Signs: Last Vital Signs Temp 98.3 F 11/30/20 11:37 Pulse 89 11/30/20 11:37 Resp 16 11/30/20 11:37 BP 118/71 11/30/20 11:37 Pulse Ox 96 11/30/20 11:37 - Exam General: Alert, Oriented, Cooperative HEENT: Conjunctiva Clear, Mucosa Moist & [place], Pupils Equal Neck: Supple. No: JVD Lungs: Clear to Auscultation, Decreased Breath Sounds. No: Crackles, Wheezing Cardiovascular: Regular Rate, Regular Rhythm GI/Abdominal Exam: Normal Bowel Sounds, Soft, Non-Tender. No: Rigid, Rebound, Tender Back Exam: Normal Inspection, Full Range of Motion. No: CVA Tenderness (L), CVA Tenderness (R) Extremities: Normal Inspection, Non-Tender, No Pedal Edema. No: Joint Swelling, Phi's Sign, Leg Pain, Increased Warmth Peripheral Pulses: 2+: Dorsalis Pedis (L), Dorsalis Pedis (R) Skin: Warm, Dry, Intact Neurological: Normal Speech, Normal Tone. No: Focal Deficit Neuro Extensive - Mental Status: Alert, Oriented x3 - Patient Data Lab Results Last 24 hrs: Laboratory Results - last 24 hr 11/30/20 11/30/20 11/30/20 Range/Units 04:15 04:15 04:45 WBC 5.15 (4.0-11.0) K/uL RBC 4.13 L (4.50-5.90) M/uL Hgb 11.7 L (13.0-17.0) g/dL Hct 35.2 L (38.0-50.0) % MCV 85.2 (80.0-98.0) fL MCH 28.3 (27.0-32.0) pg MCHC 33.2 (31.0-37.0) g/dL RDW Std Deviation 45.7 (28.0-62.0) fl RDW Coeff of Ethan 15 (11.0-15.0) % Plt Count 242 (150-400) K/uL MPV 9.70 (7.40-12.00) fL Neut % (Auto) 56.0 (48.0-80.0) % Lymph % (Auto) 28.7 (16.0-40.0) % [place] % (Auto) 13.2 (0.0-15.0) % Eos % (Auto) 1.9 (0.0-7.0) % Baso % (Auto) 0.2 (0.0-1.5) % Neut # (Auto) 2.9 (1.4-5.7) K/uL Lymph # (Auto) 1.5 (0.6-2.4) K/uL [place] # (Auto) 0.7 (0.0-0.8) K/uL Eos # (Auto) 0.1 (0.0-0.7) K/uL Baso # (Auto) 0.0 (0.0-0.1) K/uL Nucleated RBC % 0.0 /100WBC Nucleated RBCs # 0 K/uL Sodium 142 (136-148) mmol/L Potassium 3.7 (3.5-5.1) mmol/L Chloride 102 (98-107) mmol/L Carbon Dioxide 27.4 (21.0-32.0) mmol/L BUN 21 H (7.0-18.0) mg/dL Creatinine 1.1 (0.8-1.3) mg/dL Est Cr Clr Drug Dosing TNP Estimated GFR (MDRD) > 60.0 ml/min Glucose 118 H (74-106) mg/dL Calcium 8.3 L (8.5-10.1) mg/dL Total Bilirubin 0.4 (0.2-1.0) mg/dL AST 17 (15-37) IU/L ALT 16 (14-63) IU/L Alkaline Phosphatase 78 (46-116) U/L Creatine Kinase 96 (26-308) U/L Troponin I < 0.050 (0.000-0.056) ng/mL Total Protein 6.7 (6.4-8.2) g/dL Albumin 3.5 (3.4-5.0) g/dL Globulin 3.2 (2.6-4.0) g/dL Albumin/Globulin Ratio 1.1 (0.9-1.6) Lipase 59 L (73-393) U/L SARS-CoV-2 RNA (WENDY) NEGATIVE (NEGATIVE) 11/30/20 11/30/20 Range/Units 07:10 09:54 WBC (4.0-11.0) K/uL RBC (4.50-5.90) M/uL Hgb (13.0-17.0) g/dL Hct (38.0-50.0) % MCV (80.0-98.0) fL MCH (27.0-32.0) pg MCHC (31.0-37.0) g/dL RDW Std Deviation (28.0-62.0) fl RDW Coeff of Ethan (11.0-15.0) % Plt Count (150-400) K/uL MPV (7.40-12.00) fL Neut % (Auto) (48.0-80.0) % Lymph % (Auto) (16.0-40.0) % [place] % (Auto) (0.0-15.0) % Eos % (Auto) (0.0-7.0) % Baso % (Auto) (0.0-1.5) % Neut # (Auto) (1.4-5.7) K/uL Lymph # (Auto) (0.6-2.4) K/uL [place] # (Auto) (0.0-0.8) K/uL Eos # (Auto) (0.0-0.7) K/uL Baso # (Auto) (0.0-0.1) K/uL Nucleated RBC % /100WBC Nucleated RBCs # K/uL Sodium (136-148) mmol/L Potassium (3.5-5.1) mmol/L Chloride (98-107) mmol/L Carbon Dioxide (21.0-32.0) mmol/L BUN (7.0-18.0) mg/dL Creatinine (0.8-1.3) mg/dL Est Cr Clr Drug Dosing Estimated GFR (MDRD) ml/min Glucose (74-106) mg/dL Calcium (8.5-10.1) mg/dL Total Bilirubin (0.2-1.0) mg/dL AST (15-37) IU/L ALT (14-63) IU/L Alkaline Phosphatase (46-116) U/L Creatine Kinase 96 (26-308) U/L Troponin I < 0.050 < 0.050 (0.000-0.056) ng/mL Total Protein (6.4-8.2) g/dL Albumin (3.4-5.0) g/dL Globulin (2.6-4.0) g/dL Albumin/Globulin Ratio (0.9-1.6) Lipase (73-393) U/L SARS-CoV-2 RNA (WENDY) (NEGATIVE) Result Diagrams: 11/30/20 04:15 11/30/20 04:15 Sepsis Event Note - Evaluation Sepsis Screening Result: No Definite Risk - Focused Exam Vital Signs: Vital Signs Temp Pulse Resp BP Pulse Ox 11/30/20 11:37 98.3 F 89 16 118/71 96 11/30/20 08:48 97.2 F 63 16 149/85 H 98 11/30/20 06:48 82 15 138/85 97 11/30/20 04:17 97.2 F 90 20 138/80 97 - Problem List (1) Atypical chest pain SNOMED Code(s): 128325901 ICD Code: R07.89 - OTHER CHEST PAIN Status: Acute Priority: High Current Visit: No (2) Chest pain, rule out acute myocardial infarction SNOMED Code(s): 86525660 ICD Code: R07.9 - CHEST PAIN, UNSPECIFIED Status: Chronic Priority: Medium Current Visit: No (3) Coronary artery disease SNOMED Code(s): 64190042 ICD Code: I25.10 - ATHSCL HEART DISEASE OF [place] CORONARY ARTERY W/O ANG PCTRS Status: Chronic Priority: Medium Current Visit: No Qualifiers: Associated angina: with unspecified angina (4) HTN (hypertension) SNOMED Code(s): 45541836 ICD Code: I10 - ESSENTIAL (PRIMARY) HYPERTENSION Status: Chronic Priority: High Current Visit: No Qualifiers: Hypertension type: essential hypertension (5) History of coronary artery stent placement SNOMED Code(s): 626422136, 341794981 ICD Code: Z95.5 - PRESENCE OF CORONARY ANGIOPLASTY IMPLANT AND GRAFT Status: Chronic Priority: High Current Visit: No (6) Hyperlipidemia SNOMED Code(s): 16083191 ICD Code: E78.5 - HYPERLIPIDEMIA, UNSPECIFIED Status: Chronic Priority: Medium Current Visit: No Qualifiers: Hyperlipidemia type: unspecified Qualified Code(s): E78.5 - Hyperlipidemia, unspecified Problem List Initiated/Reviewed/Updated: Yes Orders Last 24hrs: Active Orders 24 hr Category Date Time Status Patient Status [ADT] Routine ADT 11/30/20 06:53 Active Ambulate [RC] ASDIRECTED Care 11/30/20 09:37 Active Antiembolic Devices [RC] PER UNIT ROUTINE Care 11/30/20 09:38 Active EKG Documentation Completion [RC] STAT Care 11/30/20 04:13 Active Oxygen Therapy [RC] PRN Care 11/30/20 09:37 Active RT Aerosol Therapy [RC] ASDIRECTED Care 11/30/20 09:39 Active VTE/DVT Education [RC] PER UNIT ROUTINE Care 11/30/20 09:37 Active Vital Signs [RC] Q4H Care 11/30/20 09:37 Active Heart Healthy Diet [DIET] Diet 11/30/20 Lunch Active Acetaminophen [TylenoL] Med 11/30/20 09:37 Active 650 mg PO Q4H PRN Albuterol/Ipratropium [DuoNeb 3.0-0.5 MG/3 ML] Med 11/30/20 09:37 Active 3 ml NEB Q4HRRT PRN Morphine Med 11/30/20 09:40 Active 1 mg IVPUSH Q4H PRN Ondansetron [Zofran] Med 11/30/20 09:37 Active 4 mg IVPUSH Q4H PRN Sequential Compression Device [OM.PC] Per Unit Routine Oth 11/30/20 09:38 Ordered Medication Orders Acetaminophen (Acetaminophen 325 Mg Tab) 650 mg PO Q4H PRN PRN Reason: Pain (Mild 1-3)/fever Albuterol/Ipratropium (Albuterol/Ipratropium 3.0-0.5 Mg/3 Ml Neb Soln) 3 ml NEB Q4HRRT PRN PRN Reason: Shortness Of Breath/wheezing Morphine Sulfate (Morphine 2 Mg/Ml Syringe) 1 mg IVPUSH Q4H PRN PRN Reason: Chest Pain Ondansetron HCl (Ondansetron 4 Mg/2 Ml Sdv) 4 mg IVPUSH Q4H PRN PRN Reason: Nausea/Vomiting Assessment/Plan Comment:: 75-year-old male with recent admission for chest pain is being admitted for ACS rule out. Troponins negative x3. EKG NSR, no signs of ischemia. Vital signs stable currently on room air. Not having active chest pain. ACS rule out: Patient admitted for observation. Monitor on telemetry. Continue home medications including nitroglycerin, aspirin, carvedilol, Plavix, pravastatin, ranolazine, paroxetine, Keppra. We will hold carvedilol for systolic blood pressure less than 90. As needed oxygen. Monitor and replete electrolytes as needed.
[2020-11-30] MEDS ORDERED: Nitroglycerin 0.4 MG Tab.SL SL PRN (14:00)
[2020-11-30] MEDS: Pantoprazole 40 MG Tab.CR PO SCH (15:54)
[2020-11-30] MEDS ORDERED: PARoxetine 20 MG Tab PO SCH (21:00)
[2020-11-30] MEDS ORDERED: Pravastatin 40 MG Tab PO SCH (21:00)
[2020-11-30] MEDS: Carvedilol 6.25 MG Tab PO SCH (21:14)
[2020-11-30] MEDS: levETIRAcetam 500 MG Tab PO SCH (21:14)
[2020-12-01] MEDS: Morphine 2 MG/ML SYRINGE IVPUSH PRN (04:07)
[2020-12-01 07:48] VITALS: BP 117/74; PULSE 70
[2020-12-01 08:20] LABS: BLOOD UREA NITROGEN,BUN 18 mg/dL (7.0-18.0); CARBON DIOXIDE,CO2 28.3 mmol/L (21.0-32.0); CHLORIDE,CL 103 mmol/L (98-107); GLUCOSE RANDOM 102 mg/dL (74-106); POTASSIUM,K 3.6 mmol/L (3.5-5.1); SODIUM,NA 142 mmol/L (136-148)
[2020-12-01] MEDS ORDERED: Clopidogrel 75 MG Tab PO SCH (09:00)
[2020-12-01] MEDS ORDERED: Aspirin 81 MG Tab.EC PO SCH (09:00)
[2020-12-01] MEDS: levETIRAcetam 500 MG Tab PO SCH (09:13)
[2020-12-01] MEDS: Pantoprazole 40 MG Tab.CR PO SCH (09:14)
[2020-12-01] MEDS: Carvedilol 6.25 MG Tab PO SCH (09:14)
[2020-12-01] MEDS ORDERED: Sodium Chloride 0.9% 500 ML IV ONE (09:32)
--- NOTE | 2020-12-01 10:23 | PCM.DCSUM1 ---
Discharge Summary - Hospital Course Free Text/Narrative:: Patient admission status changes from inpatient to observation. Past medical history: CAD, HLD, HTN, [place] 2010, stents x4, anxiety and depression. Nuclear stress test 11/14/2020: No significant findings, as per cardiology. 75-year-old male with multiple admissions for atypical chest pain presented to the ER after he was awoken by chest pain from sleep at 3 AM. Patient did drink 3 beers on Tuesday night. Patient states he was asleep and was awoken by chest pain which was not relieved by nitroglycerin. Pain was nonradiating, sharp, substernal 6/10 left-sided chest pain. Patient disclosed that nitroglycerin makes him nauseous and he does not like taking it. Patient's EKG was normal sinus rhythm. Temperature was 97.2. Pulse was 90. Blood pressure 138/80. WBC 5. Hemoglobin 11.7. Sodium 142. Potassium 3.7. BUN 21. Creatinine 1.1. Troponins were negative x3. Patient was given aspirin 325 mg. CXR showed no acute cardiopulmonary process. Patient was admitted for ACS rule out and monitor on telemetry. He remained in NSR. No evidence of ischemic changes. Patient's home medications were continued. Patient's blood pressures were soft after receiving his carvedilol, and so his dose was decreased to 3.125 mg twice daily. He will be discharged on carvedilol 3.125 mg twice daily. As per patient he was not taking his Ranexa twice daily, and he was counseled on the importance of taking his medications as prescribed. Less likely his nightly episodes of chest pain are related to missing his second dose of Ranexa. Patient given detailed instruction on discharge summary. CBC and BMP was unremarkable. Patient was made a follow-up appointment with cardiology. Patient will see his PCP next week. - Discharge Data Discharge Date: 12/01/20 Discharge Disposition: Home, Self-Care 01 Condition: Good - Referral to Home Health Primary Care Physician: PCP None - Discharge Diagnosis/Problem(s) (1) Atypical chest pain SNOMED Code(s): 345421620 ICD Code: R07.89 - OTHER CHEST PAIN Status: Acute Priority: High Current Visit: No (2) Chest pain, rule out acute myocardial infarction SNOMED Code(s): 71442122 ICD Code: R07.9 - CHEST PAIN, UNSPECIFIED Status: Chronic Priority: Medium Current Visit: No (3) Coronary artery disease SNOMED Code(s): 57308222 ICD Code: I25.10 - ATHSCL HEART DISEASE OF [place] CORONARY ARTERY W/O ANG PCTRS Status: Chronic Priority: Medium Current Visit: No Qualifiers: Associated angina: with unspecified angina (4) HTN (hypertension) SNOMED Code(s): 13941631 ICD Code: I10 - ESSENTIAL (PRIMARY) HYPERTENSION Status: Chronic Priority: High Current Visit: No Qualifiers: Hypertension type: essential hypertension (5) History of coronary artery stent placement SNOMED Code(s): 233779367, 856465963 ICD Code: Z95.5 - PRESENCE OF CORONARY ANGIOPLASTY IMPLANT AND GRAFT Status: Chronic Priority: High Current Visit: No (6) Hyperlipidemia SNOMED Code(s): 66274695 ICD Code: E78.5 - HYPERLIPIDEMIA, UNSPECIFIED Status: Chronic Priority: M edium Current Visit: No Qualifiers: Hyperlipidemia type: unspecified Qualified Code(s): E78.5 - Hyperlipidemia, unspecified - Patient Instructions Diet: Heart Healthy Diet Notify Provider of: Increased Pain Other/Special Instructions: It is very important to take your medication as prescribed. As we discussed, we are decreasing the dose of your carvedilol to 3.125 mg twice a day. You are also getting a prescription for lidocaine patch to be applied to the skin as needed for muscle related chest pain. One of the factors that contribute to your chest pain is not taking medications as prescribed. Here are written instructions on how you should be taking your medications: Aspirin 81 mg: Once a day. Plavix 75 mg: Once a day. Carvedilol 3.125 mg: Twice a day (morning and night). Ranexa 500 mg: Twice a day (morning and night). Pravastatin 80 mg: Once a day. Pantoprazole 40 mg: Once a day. Nitroglycerin sublingual tab 0.4 mg: To be taken as needed for acute chest pain. Your other medications include: Paroxetine 40 mg: Once a day. Keppra 500 mg: Twice a day. 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 Let them know that your carvedilol dose was decreased. If you experience substernal chest pain that may radiate to her left arm or jaw, or experience difficulty breathing please seek medical attention. - Discharge Plan *PRESCRIPTION DRUG MONITORING PROGRAM REVIEWED*: Not Applicable *COPY OF PRESCRIPTION DRUG MONITORING REPORT IN PATIENT SWEETIE: Not Applicable Prescriptions/Med Rec: carvediloL [Carvedilol] 3.125 mg PO Q12HR 30 Days #60 tablet Lidocaine [Lidocaine Pain Relief] 1 each TP DAILY 10 Days #10 adh..patch Home Medications: Home Meds Pantoprazole [ProTONIX] 40 mg PO DAILY 09/22/16 [History] Pravastatin [Pravachol] 80 mg PO BEDTIME 09/22/16 [History] Clopidogrel [Plavix] 75 mg PO DAILY 04/19/17 [History] PARoxetine [Paxil] 40 mg PO BEDTIME 04/19/17 [History] Aspirin [Halfprin] 81 mg PO DAILY #0 tab.ec 04/20/17 [Rx] Nitroglycerin [Nitrostat] 0.4 mg SL Q5M PRN MDD 3 03/07/18 [History] levETIRAcetam [Levetiracetam] 500 mg PO BID 01/14/19 [History] Lidocaine [Lidocaine Pain Relief] 1 each TP DAILY 10 Days #10 adh..patch 12/01/20 [Rx] Ranolazine [Ranexa] 500 mg PO BID #0 12/01/20 [Rx] carvediloL [Carvedilol] 3.125 mg PO Q12HR 30 Days #60 tablet 12/01/20 [Rx] Patient Handouts: Carvedilol Tablets, Nonspecific Chest Pain, Adult, [id number], Lidocaine dermal patch Referrals: Bo Lopez MD [Physician] - Yaniv Sevilla MD [Physician] - 12/15/20 4:00 pm - Discharge Summary/Plan Comment DC Time >30 min.: Yes Total # of Minutes for Discharge Time: 31 - General Info Admission Dx/Problem (Free Text: Admission Diagnosis/Problem Admission Diagnosis/Problem Chest pain in adult - Review of Systems General: Reports: No Symptoms HEENT: Reports: No Symptoms Pulmonary: Reports: No Symptoms Cardiovascular: Reports: No Symptoms Gastrointestinal: Reports: No Symptoms Genitourinary: Reports: No Symptoms Musculoskeletal: Reports: No Symptoms Skin: Reports: No Symptoms Neurological: Reports: No Symptoms Psychiatric: Reports: No Symptoms - Patient Data Vitals - Most Recent: Last Vital Signs Temp 97.2 F 12/01/20 07:47 Pulse 70 12/01/20 09:14 Resp 16 12/01/20 07:47 BP 117/74 12/01/20 09:14 Pulse Ox 94 L 12/01/20 07:47 Weight - Most Recent: 150 lb I&O - Last 24 hours: Intake & Output 11/30/20 12/01/20 12/01/20 22:59 06:59 14:59 Intake Total 200 200 Output Total 400 450 Balance -200 -250 Lab Results - Last 24 hrs: Laboratory Results - last 24 hr 11/30/20 12/01/20 12/01/20 Range/Units 09:54 07:55 07:55 WBC 4.08 (4.0-11.0) K/uL RBC 4.26 L (4.50-5.90) M/uL Hgb 11.9 L (13.0-17.0) g/dL Hct 36.5 L (38.0-50.0) % MCV 85.7 (80.0-98.0) fL MCH 27.9 (27.0-32.0) pg MCHC 32.6 (31.0-37.0) g/dL RDW Std Deviation 46.2 (28.0-62.0) fl RDW Coeff of Ethan 15 (11.0-15.0) % Plt Count 218 (150-400) K/uL MPV 9.60 (7.40-12.00) fL Neut % (Auto) 55.9 (48.0-80.0) % Lymph % (Auto) 28.2 (16.0-40.0) % [place] % (Auto) 13.5 (0.0-15.0) % Eos % (Auto) 2.2 (0.0-7.0) % Baso % (Auto) 0.2 (0.0-1.5) % Neut # (Auto) 2.3 (1.4-5.7) K/uL Lymph # (Auto) 1.2 (0.6-2.4) K/uL [place] # (Auto) 0.6 (0.0-0.8) K/uL Eos # (Auto) 0.1 (0.0-0.7) K/uL Baso # (Auto) 0.0 (0.0-0.1) K/uL Nucleated RBC % 0.0 /100WBC Nucleated RBCs # 0 K/uL Sodium 142 (136-148) mmol/L Potassium 3.6 (3.5-5.1) mmol/L Chloride 103 (98-107) mmol/L Carbon Dioxide 28.3 (21.0-32.0) mmol/L BUN 18 (7.0-18.0) mg/dL Creatinine 1.0 (0.8-1.3) mg/dL Est Cr Clr Drug Dosing 61.51 mL/min Estimated GFR (MDRD) > 60.0 ml/min Glucose 102 (74-106) mg/dL Calcium 8.5 (8.5-10.1) mg/dL Troponin I < 0.050 (0.000-0.056) ng/mL Med Orders - Current: Current Medications Acetaminophen (Acetaminophen 325 Mg Tab) 650 mg PO Q4H PRN PRN Reason: Pain (Mild 1-3)/fever Albuterol/Ipratropium (Albuterol/Ipratropium 3.0-0.5 Mg/3 Ml Neb Soln) 3 ml NEB Q4HRRT PRN PRN Reason: Shortness Of Breath/wheezing Aspirin (Aspirin 81 Mg Tab.Ec) 81 mg PO DAILY [facility] Last Admin: 12/01/20 09:13 Dose: 81 mg Documented by: Carvedilol (Carvedilol 6.25 Mg Tab) 6.25 mg PO BID [facility] Last Admin: 12/01/20 09:14 Dose: 6.25 mg Documented by: Clopidogrel Bisulfate (Clopidogrel 75 Mg Tab) 75 mg PO DAILY [facility] Last Admin: 12/01/20 09:14 Dose: 75 mg Documented by: Levetiracetam (Levetiracetam 500 Mg Tab) 500 mg PO BID [facility] Last Admin: 12/01/20 09:13 Dose: 500 mg Documented by: Morphine Sulfate (Morphine 2 Mg/Ml Syringe) 1 mg IVPUSH Q4H PRN PRN Reason: Chest Pain Last Admin: 12/01/20 04:07 Dose: 1 mg Documented by: Nitroglycerin (Nitroglycerin 0.4 Mg Tab.Sl) 0.4 mg SL Q5M PRN PRN Reason: Chest Pain Ondansetron HCl (Ondansetron 4 Mg/2 Ml Sdv) 4 mg IVPUSH Q4H PRN PRN Reason: Nausea/Vomiting Pantoprazole Sodium (Pantoprazole 40 Mg Tab.Cr) 40 mg PO DAILY [facility] Last Admin: 12/01/20 09:14 Dose: 40 mg Documented by: Paroxetine HCl (Paroxetine 20 Mg Tab) 40 mg PO BEDTIME [facility] Last Admin: 11/30/20 21:14 Dose: 40 mg Documented by: Pravastatin Sodium (Pravastatin 40 Mg Tab) 80 mg PO BEDTIME [facility] Last Admin: 11/30/20 21:15 Dose: 80 mg Documented by: Ranolazine (Ranolazine 500 Mg Tab.Er) 500 mg PO BID [facility] Last Admin: 12/01/20 09:13 Dose: 500 mg Documented by: Discontinued Medications Hydrocodone Bitart/Acetaminophen (Acetaminophen/Hydrocodone 325-5 Mg Tab) 1 tab PO ONETIME ONE Stop: 11/30/20 07:41 Last Admin: 11/30/20 07:54 Dose: 1 tab Documented by: Aspirin (Aspirin 81 Mg Tab.Chew) 324 mg PO ONETIME ONE Stop: 11/30/20 06:54 Last Admin: 11/30/20 06:59 Dose: Not Given Documented by: Sodium Chloride (Normal Saline) 500 mls @ 60 mls/hr IV ONETIME ONE Stop: 12/01/20 17:51 - Exam General: Reports: Alert, Oriented, No Acute Distress HEENT: Reports: Pupils Equal Neck: Reports: Supple, No JVD Lungs: Reports: Clear to Auscultation, Normal Respiratory Effort Cardiovascular: Reports: Regular Rate, Regular Rhythm, No Murmurs GI/Abdominal Exam: Normal Bowel Sounds, Soft, Non-Tender Extremities: Normal Inspection, No Pedal Edema. No: Phi's Sign, Leg Pain Neurological: Reports: No New Focal Deficit
== END 2020-12-01 14:25 | disposition home or self-care (01) | DRG 313 ==
LOC: MW.ED 04:06 → MW.MS 06:53
PROVIDERS: ADMIT Student in an Organized Health Care Education/Training Program; ATTEND Student in an Organized Health Care Education/Training Program
DX: R07.9 Chest pain, unspecified (principal); R07.89 Other chest pain; I25.10 Atherosclerotic heart disease of native coronary artery without angina pectoris; E78.5 Hyperlipidemia, unspecified; I10 Essential (primary) hypertension; F41.9 Anxiety disorder, unspecified; F32.9 Major depressive disorder, single episode, unspecified; M47.9 Spondylosis, unspecified; R42 Dizziness and giddiness; H54.7 Unspecified visual loss; E78.00 Pure hypercholesterolemia, unspecified; E11.9 Type 2 diabetes mellitus without complications; M19.90 Unspecified osteoarthritis, unspecified site; Z79.01 Long term (current) use of anticoagulants; I25.2 Old myocardial infarction; Z95.5 Presence of coronary angioplasty implant and graft; Z79.02 Long term (current) use of antithrombotics/antiplatelets; Z79.899 Other long term (current) drug therapy; Z79.82 Long term (current) use of aspirin; Z90.49 Acquired absence of other specified parts of digestive tract; Z20.822 Contact with and (suspected) exposure to COVID-19
CPT/HCPCS: 36415; 71045; 80053; 82550; 83690; 84484; 85025; 93005; U0002; 80048; 99285-25; A9270-GY; J2270

== ENCOUNTER 2021-05-07 23:03 | Observation (INO) | payer MEDICARE ==
[2021-05-07] MEDS ORDERED: Sodium Chloride 0.9% 10 ML Syringe FLUSH PRN (23:09)
[2021-05-07] MEDS ORDERED: Sodium Chloride 0.9% 2.5 ML Syringe FLUSH PRN (23:09)
[2021-05-07] MEDS ORDERED: Morphine 4 MG/ML VIAL IVPUSH ONE (23:09)
[2021-05-08 00:05] LABS: BLOOD UREA NITROGEN,BUN 21 mg/dL (7.0-18.0); CARBON DIOXIDE,CO2 25.2 mmol/L (21.0-32.0); CHLORIDE,CL 104 mmol/L (98-107); GLUCOSE RANDOM 121 mg/dL (74-106); POTASSIUM,K 3.4 mmol/L (3.5-5.1); SODIUM,NA 139 mmol/L (136-148)
[2021-05-08] MEDS: Nitroglycerin 0.4 MG Tab.SL SL PRN ×3 (01:16→01:26)
[2021-05-08] MEDS ORDERED: PANTOPRAZOLE 40 MG PO SCH (09:00)
[2021-05-08] MEDS ORDERED: Clopidogrel 75 MG Tab PO SCH (09:00)
[2021-05-08] MEDS ORDERED: levETIRAcetam 500 MG Tab PO SCH (09:00)
[2021-05-08] MEDS ORDERED: Pantoprazole 40 MG Tab.CR PO SCH (09:00)
[2021-05-08] MEDS ORDERED: Carvedilol 3.125 MG Tab PO SCH (09:00)
[2021-05-08] MEDS ORDERED: Aspirin 81 MG Tab.EC PO SCH (09:00)
[2021-05-08] MEDS ORDERED: LEVETIRACETAM 1000 MG PO SCH (09:00)
[2021-05-08 13:18] VITALS: BP 143/87; PULSE 66
[2021-05-08] MEDS ORDERED: Pravastatin 40 MG Tab PO SCH (21:00)
[2021-05-08] MEDS ORDERED: PARoxetine 20 MG Tab PO SCH (21:00)
== END 2021-05-08 14:35 | disposition home or self-care (01) ==
LOC: MW.ED 23:03 → MW.MS 05-08 01:09
PROVIDERS: ADMIT Internal Medicine; ATTEND Internal Medicine
DX: R07.89 Other chest pain (principal); I25.10 Atherosclerotic heart disease of native coronary artery without angina pectoris; I10 Essential (primary) hypertension; E78.00 Pure hypercholesterolemia, unspecified; I25.2 Old myocardial infarction; E11.9 Type 2 diabetes mellitus without complications; F41.9 Anxiety disorder, unspecified; R56.9 Unspecified convulsions; Z95.5 Presence of coronary angioplasty implant and graft; Z20.822 Contact with and (suspected) exposure to COVID-19; Z79.899 Other long term (current) drug therapy; Z98.890 Other specified postprocedural states
CPT/HCPCS: 36415; 71045; 80053; 80307; 83735; 83880; 84100; 84484; 85025; 85610; 93005; 96374; 99285; A9270; G0378; J2270; U0002

== ENCOUNTER 2021-05-16 18:25 | Emergency (ER) | payer MEDICARE ==
[2021-05-16] MEDS ORDERED: Sodium Chloride 0.9% 2.5 ML Syringe FLUSH PRN (18:37)
[2021-05-16] MEDS ORDERED: Sodium Chloride 0.9% 10 ML Syringe FLUSH PRN (18:37)
[2021-05-16 19:16] LABS: BLOOD UREA NITROGEN,BUN 27 mg/dL (7.0-18.0); CARBON DIOXIDE,CO2 26.7 mmol/L (21.0-32.0); CHLORIDE,CL 102 mmol/L (98-107); GLUCOSE RANDOM 119 mg/dL (74-106); LIPASE 59 U/L (73-393); POTASSIUM,K 3.8 mmol/L (3.5-5.1); SODIUM,NA 138 mmol/L (136-148)
[2021-05-16] MEDS ORDERED: Ondansetron 4 MG/2 ML SDV IVPUSH ONE (19:52)
[2021-05-16] MEDS ORDERED: Morphine 4 MG/ML VIAL IVPUSH ONE (19:52)
[2021-05-16] MEDS ORDERED: Iopamidol 755 Mg/ML 100 ML Bottle IVPUSH ONE (20:11)
[2021-05-16] MEDS ORDERED: Sodium Chloride 0.9% 1,000 ML IV ONE (20:30)
[2021-05-16 23:16] LABS: CORONAVIRUS COVID-19 NAA NEGATIVE (NEGATIVE); INFLUENZA A NAA NEGATIVE (NEGATIVE); INFLUENZA B NAA NEGATIVE (NEGATIVE)
[2021-05-16 23:27] VITALS: BP 113/64; PULSE 74
== END 2021-05-16 23:27 | disposition home or self-care (01) ==
LOC: MW.ED 18:25
DX: R07.9 Chest pain, unspecified (principal); N17.9 Acute kidney failure, unspecified; I25.10 Atherosclerotic heart disease of native coronary artery without angina pectoris; I10 Essential (primary) hypertension; E78.00 Pure hypercholesterolemia, unspecified; I25.2 Old myocardial infarction; M19.90 Unspecified osteoarthritis, unspecified site; E11.9 Type 2 diabetes mellitus without complications; Z87.891 Personal history of nicotine dependence; Z79.899 Other long term (current) drug therapy; Z79.02 Long term (current) use of antithrombotics/antiplatelets; Z79.82 Long term (current) use of aspirin; Z20.822 Contact with and (suspected) exposure to COVID-19
CPT/HCPCS: 0240U; 36415; 71045; 71275; 74174; 80053; 83690; 84484; 85025; 93005; 96374; 96375; 99285; J2270; J2405; J7030; Q9967

== ENCOUNTER 2021-07-20 19:18 | Emergency (ER) | payer MEDICARE ==
[2021-07-20] MEDS ORDERED: Sodium Chloride 0.9% 2.5 ML Syringe FLUSH PRN (19:35)
[2021-07-20] MEDS ORDERED: Morphine 4 MG/ML VIAL IVPUSH ONE ×2 (19:35→22:59)
[2021-07-20] MEDS ORDERED: Sodium Chloride 0.9% 10 ML Syringe FLUSH PRN (19:35)
[2021-07-20] MEDS ORDERED: Prochlorperazine 10 MG/2 ML SDV IVPUSH ONE (19:36)
[2021-07-20 20:02] LABS: BLOOD UREA NITROGEN,BUN 20 mg/dL (7.0-18.0); CARBON DIOXIDE,CO2 26.1 mmol/L (21.0-32.0); CHLORIDE,CL 104 mmol/L (98-107); GLUCOSE RANDOM 110 mg/dL (74-106); POTASSIUM,K 4.1 mmol/L (3.5-5.1); SODIUM,NA 139 mmol/L (136-148)
[2021-07-20] MEDS ORDERED: Iopamidol 755 MG/ML 500 ML Multipack Bottle IVPUSH STA (20:30)
[2021-07-21] VITALS: PULSE 71
[2021-07-21 00:01] VITALS: BP 119/75
== END 2021-07-21 00:14 | disposition home or self-care (01) ==
LOC: MW.ED 19:18
DX: R07.9 Chest pain, unspecified (principal); I10 Essential (primary) hypertension; I25.10 Atherosclerotic heart disease of native coronary artery without angina pectoris; E11.9 Type 2 diabetes mellitus without complications; I25.2 Old myocardial infarction; Z79.01 Long term (current) use of anticoagulants; Z79.899 Other long term (current) drug therapy
CPT/HCPCS: 36415; 71045; 74177; 80053; 83735; 84484; 85025; 93005; 96374; 96375; 96376; 99285; J0780; J2270; Q9967; U0002; 93010

== ENCOUNTER 2021-12-17 08:43 | Emergency (ER) | payer MEDICARE ==
[2021-12-17] MEDS ORDERED: Sodium Chloride 0.9% 2.5 ML Syringe FLUSH PRN (08:46)
[2021-12-17] MEDS ORDERED: Sodium Chloride 0.9% 10 ML Syringe FLUSH PRN (08:46)
[2021-12-17 09:32] LABS: CARBON DIOXIDE,CO2 30.7 mmol/L (21.0-32.0); POTASSIUM,K 4.1 mmol/L (3.5-5.1)
[2021-12-17] MEDS ORDERED: Morphine 4 MG/ML VIAL IVPUSH ONE (09:43)
[2021-12-17] MEDS ORDERED: Ondansetron 4 MG/2 ML SDV IVPUSH ONE (09:43)
[2021-12-17] MEDS ORDERED: Alum Hydro/Mag Hydro/Simeth XS 15 ML, Lidocaine 2% 5 ML PO ONE ×2 (10:22)
[2021-12-17] MEDS ORDERED: Famotidine 20 MG/2 ML SDV IVPUSH ONE (10:22)
[2021-12-17 12:08] VITALS: BP 128/74; PULSE 68
== END 2021-12-17 12:08 | disposition home or self-care (01) ==
LOC: MW.ED 08:43
DX: R07.89 Other chest pain (principal); E11.9 Type 2 diabetes mellitus without complications; I25.10 Atherosclerotic heart disease of native coronary artery without angina pectoris; I10 Essential (primary) hypertension; I25.2 Old myocardial infarction; M19.90 Unspecified osteoarthritis, unspecified site; Z79.82 Long term (current) use of aspirin; Z79.899 Other long term (current) drug therapy; Z20.822 Contact with and (suspected) exposure to COVID-19
CPT/HCPCS: 36415; 71045; 80053; 80307; 83690; 83735; 84484; 85025; 85610; 85730; 93005; 96374; 96375; 99285; A9270; J2270; J2405; J3490; U0002

== ENCOUNTER 2022-01-22 19:18 | Emergency (ER) | payer MEDICAID, MEDICARE ==
[2022-01-22] MEDS ORDERED: Morphine 4 MG/ML Syringe IV ONE (20:10)
== END 2022-01-22 21:15 ==
LOC: MW.ED 19:18
DX: R07.89 Other chest pain (principal)
CPT/HCPCS: 71045; 96374; 99285; J2270

== ENCOUNTER 2022-03-28 22:25 | Emergency (ER) | payer MEDICAID, MEDICARE ==
[2022-03-28 22:41] VITALS: BP 143/89; PULSE 101
[2022-03-28 23:12] LABS: CORONAVIRUS COVID-19 NAA NEGATIVE (NEGATIVE); INFLUENZA A NAA POSITIVE (NEGATIVE); INFLUENZA B NAA NEGATIVE (NEGATIVE); RESPIRATORY SYNCYTIAL VIR NAA NEGATIVE (NEGATIVE)
[2022-03-28 23:50] LABS: CARBON DIOXIDE,CO2 26.1 mmol/L (21.0-32.0); POTASSIUM,K 3.5 mmol/L (3.5-5.1)
== END 2022-03-29 00:54 | disposition home or self-care (01) ==
LOC: MW.ED 22:25
DX: J10.1 Influenza due to other identified influenza virus with other respiratory manifestations (principal); I25.10 Atherosclerotic heart disease of native coronary artery without angina pectoris; I10 Essential (primary) hypertension; E78.00 Pure hypercholesterolemia, unspecified; I25.2 Old myocardial infarction; K21.9 Gastro-esophageal reflux disease without esophagitis; M19.90 Unspecified osteoarthritis, unspecified site; E11.9 Type 2 diabetes mellitus without complications; Z79.01 Long term (current) use of anticoagulants; Z79.02 Long term (current) use of antithrombotics/antiplatelets; Z79.82 Long term (current) use of aspirin; Z79.899 Other long term (current) drug therapy; Z20.822 Contact with and (suspected) exposure to COVID-19
CPT/HCPCS: 0241U; 36415; 70450; 71045; 80053; 83605; 83880; 84484; 85025; 85610; 87040; 99284; 93010; 99283

== ENCOUNTER 2022-04-22 14:15 | Observation (INO) | payer MEDICARE, MEDICAID ==
[2022-04-22] MEDS ORDERED: Sodium Chloride 0.9% 10 ML Syringe FLUSH PRN ×3 (14:25→17:47)
[2022-04-22] MEDS ORDERED: Sodium Chloride 0.9% 2.5 ML Syringe FLUSH PRN ×3 (14:25→17:47)
[2022-04-22] MEDS ORDERED: Sodium Chloride 0.9% 1,000 ML IV ONE (14:26)
[2022-04-22 15:13] LABS: CARBON DIOXIDE,CO2 26.4 mmol/L (21.0-32.0); POTASSIUM,K 3.8 mmol/L (3.5-5.1)
[2022-04-22 15:20] LABS: CORONAVIRUS COVID-19 NAA NEGATIVE (NEGATIVE); INFLUENZA A NAA NEGATIVE (NEGATIVE); INFLUENZA B NAA NEGATIVE (NEGATIVE)
[2022-04-22] MEDS ORDERED: Morphine 2 MG/ML SYRINGE IVPUSH ONE (16:47)
[2022-04-22] MEDS ORDERED: Albuterol/Ipratropium 3.0-0.5 MG/3 ML Neb Soln NEB PRN (17:40)
[2022-04-22] MEDS ORDERED: Acetaminophen 325 MG Tab PO PRN (17:40)
[2022-04-22] MEDS ORDERED: Polyethylene Glycol 3350 Powder 17 GM Packet PO PRN (17:40)
[2022-04-22] MEDS ORDERED: Ondansetron 4 MG/2 ML SDV IVPUSH PRN (17:40)
[2022-04-22] MEDS: Carvedilol 3.125 MG Tab PO SCH (20:00)
[2022-04-22] MEDS: Clopidogrel 75 MG Tab PO SCH (20:00)
[2022-04-22] MEDS: levETIRAcetam 500 MG Tab PO SCH (20:01)
[2022-04-22] MEDS ORDERED: Pravastatin 40 MG Tab PO SCH (21:00)
[2022-04-22] MEDS ORDERED: PARoxetine 20 MG Tab PO SCH (21:00)
[2022-04-23 07:26] LABS: CARBON DIOXIDE,CO2 26.1 mmol/L (21.0-32.0); POTASSIUM,K 3.5 mmol/L (3.5-5.1)
[2022-04-23] MEDS: Clopidogrel 75 MG Tab PO SCH (08:46)
[2022-04-23] MEDS: levETIRAcetam 500 MG Tab PO SCH (08:46)
[2022-04-23] MEDS ORDERED: Magnesium Oxide 400 MG Tab PO ONE (08:47)
[2022-04-23] MEDS ORDERED: Aspirin 81 MG Tab.EC PO SCH (09:00)
[2022-04-23] MEDS ORDERED: Pantoprazole 40 MG Tab.CR PO SCH (09:00)
[2022-04-23] MEDS: Carvedilol 3.125 MG Tab PO SCH (09:08)
[2022-04-23 09:39] VITALS: BP 130/78; PULSE 70
[2022-04-23] MEDS ORDERED: Rosuvastatin 10 MG Tab PO SCH (21:00)
== END 2022-04-23 12:00 | disposition home or self-care (01) ==
LOC: MW.ED 14:15 → MW.MS 17:22
PROVIDERS: ADMIT Internal Medicine; ATTEND Internal Medicine
DX: R07.89 Other chest pain (principal); I10 Essential (primary) hypertension; I25.10 Atherosclerotic heart disease of native coronary artery without angina pectoris; K21.9 Gastro-esophageal reflux disease without esophagitis; I25.2 Old myocardial infarction; E78.00 Pure hypercholesterolemia, unspecified; E11.9 Type 2 diabetes mellitus without complications; M19.90 Unspecified osteoarthritis, unspecified site; Z95.5 Presence of coronary angioplasty implant and graft; Z79.899 Other long term (current) drug therapy; Z79.82 Long term (current) use of aspirin; Z20.822 Contact with and (suspected) exposure to COVID-19; Z98.890 Other specified postprocedural states; Z79.01 Long term (current) use of anticoagulants; Z90.49 Acquired absence of other specified parts of digestive tract
CPT/HCPCS: 0240U; 36415; 71045; 80048; 80053; 83735; 84100; 84484; 85025; 93005; A9270; G0378; J2270; J3490; J7030; 96361; 96374; 99285-25

== ENCOUNTER 2022-05-11 02:32 | Emergency (ER) | payer MEDICAID, MEDICARE ==
[2022-05-11] MEDS ORDERED: Morphine 4 MG/ML Syringe IVPUSH ONE (03:04)
[2022-05-11 03:09] LABS: BLOOD UREA NITROGEN,BUN 16 mg/dL (7.0-18.0); CARBON DIOXIDE,CO2 28.1 mmol/L (21.0-32.0); CHLORIDE,CL 106 mmol/L (98-107); ESTIMATED GFR 90 mL/min (>60); GLUCOSE RANDOM 127 mg/dL (74-106); POTASSIUM,K 3.7 mmol/L (3.5-5.1); SODIUM,NA 142 mmol/L (136-148)
[2022-05-11] MEDS ORDERED: Alum Hydro/Mag Hydro/Simeth XS 15 ML, Lidocaine 2% 5 ML PO ONE ×2 (04:13)
[2022-05-11 05:16] VITALS: BP 113/63; PULSE 82
== END 2022-05-11 05:15 | disposition home or self-care (01) ==
LOC: MW.ED 02:32
DX: R07.9 Chest pain, unspecified (principal); I10 Essential (primary) hypertension; I25.2 Old myocardial infarction; E78.00 Pure hypercholesterolemia, unspecified; I25.10 Atherosclerotic heart disease of native coronary artery without angina pectoris; E11.9 Type 2 diabetes mellitus without complications; K21.9 Gastro-esophageal reflux disease without esophagitis; Z20.822 Contact with and (suspected) exposure to COVID-19; Z79.82 Long term (current) use of aspirin; Z79.01 Long term (current) use of anticoagulants; Z79.899 Other long term (current) drug therapy
CPT/HCPCS: 36415; 71045; 80053; 80307; 83735; 84484; 85025; 85610; 85730; 93005; 96374; 99285; A9270; J2270; U0002

== ENCOUNTER 2022-06-18 11:01 | Emergency (ER) | payer MEDICARE, OTHER ==
[2022-06-18 12:59] LABS: CARBON DIOXIDE,CO2 25.9 mmol/L (21.0-32.0); POTASSIUM,K 3.9 mmol/L (3.5-5.1)
[2022-06-18 14:27] VITALS: BP 107/74; PULSE 76
== END 2022-06-18 14:28 | disposition home or self-care (01) ==
LOC: MW.ED 11:01
DX: R07.89 Other chest pain (principal); I25.10 Atherosclerotic heart disease of native coronary artery without angina pectoris; E78.00 Pure hypercholesterolemia, unspecified; I10 Essential (primary) hypertension; I25.2 Old myocardial infarction; K21.9 Gastro-esophageal reflux disease without esophagitis; M19.90 Unspecified osteoarthritis, unspecified site; E11.9 Type 2 diabetes mellitus without complications; Z79.01 Long term (current) use of anticoagulants; Z79.02 Long term (current) use of antithrombotics/antiplatelets; Z79.899 Other long term (current) drug therapy
CPT/HCPCS: 36415; 71045; 71045-26; 74018; 74018-26; 80053; 80307; 84484; 85025; 93005; 93010; 99284; 99285

== ENCOUNTER 2022-07-23 12:26 | Emergency (ER) | payer MEDICARE ==
[2022-07-23 14:13] VITALS: BP 101/57; PULSE 77
== END 2022-07-23 14:00 | disposition home or self-care (01) ==
LOC: MW.ED 12:26
DX: M79.651 Pain in right thigh (principal); M79.652 Pain in left thigh; R42 Dizziness and giddiness; I25.10 Atherosclerotic heart disease of native coronary artery without angina pectoris; E78.00 Pure hypercholesterolemia, unspecified; I10 Essential (primary) hypertension; I25.2 Old myocardial infarction; E11.9 Type 2 diabetes mellitus without complications; K21.9 Gastro-esophageal reflux disease without esophagitis; M19.90 Unspecified osteoarthritis, unspecified site; Z79.02 Long term (current) use of antithrombotics/antiplatelets; Z79.01 Long term (current) use of anticoagulants; Z79.82 Long term (current) use of aspirin; Z79.899 Other long term (current) drug therapy
CPT/HCPCS: 99283

== ENCOUNTER 2022-08-25 08:30 | Observation (INO) | payer MEDICARE ==
[2022-08-25 08:43] LABS: BASOPHILS PERCENT AUTO 0.2 % (0.0-1.5); EOSINOPHILS ABSOLUTE AUTO 0.1 K/uL (0.0-0.7); EOSINOPHILS PERCENT AUTO 3.4 % (0.0-7.0); HEMOGLOBIN 13.1 g/dL (13.0-17.0); LYMPHOCYTES ABSOLUTE AUTO 1.1 K/uL (0.6-2.4); LYMPHOCYTES PERCENT AUTO 26.3 % (16.0-40.0); MEAN CORPUSCULAR HEMOGLOBIN 29.4 pg (27.0-32.0); MEAN CORPUSCULAR HGB CONC 33.6 g/dL (31.0-37.0); MEAN CORPUSCULAR VOLUME 87.4 fL (80.0-98.0); MONOCYTES ABSOLUTE AUTO 0.6 K/uL (0.0-0.8); MONOCYTES PERCENT AUTO 13.5 % (0.0-15.0); NEUTROPHILS ABSOLUTE AUTO 2.4 K/uL (1.4-5.7); NEUTROPHILS PERCENT AUTO 56.6 % (48.0-80.0); PLATELET COUNT,PLT 215 K/uL (150-400); RED BLOOD CELL COUNT 4.46 M/uL (4.50-5.90); WHITE BLOOD CELL COUNT,WBC 4.15 K/uL (4.0-11.0)
[2022-08-25] MEDS ORDERED: Lidocaine 4% 1 each Patch TOP PRN (09:00)
[2022-08-25] MEDS ORDERED: Lactated Ringers 1,000 ML IV ONE (09:17)
[2022-08-25] MEDS ORDERED: LORazepam 2 MG/ML SDV IVPUSH ONE (09:21)
[2022-08-25 09:22] LABS: A/G RATIO 1.1 (0.9-1.6); ALBUMIN 3.8 g/dL (3.4-5.0); BILIRUBIN TOTAL 0.5 mg/dL (0.2-1.0); CARBON DIOXIDE,CO2 30.9 mmol/L (21.0-32.0); CREATININE 0.9 mg/dL (0.8-1.3); EST CRCL DRUG DOSING (CG) 66.3 mL/min; MAGNESIUM 1.6 mg/dL (1.8-2.4); POTASSIUM,K 2.8 mmol/L (3.5-5.1); PROTEIN TOTAL,TP 7.4 g/dL (6.4-8.2)
[2022-08-25] MEDS ORDERED: Potassium Chloride 20 MEQ Tab.ER PO ONE (09:46)
[2022-08-25] MEDS ORDERED: Magnesium Sulfate/Water 2 GM in Premix Bag 1 BAG IV ONE (09:46)
[2022-08-25] MEDS ORDERED: Potassium Chloride 10 MEQ in Premix Bag 1 BAG IV ONE (09:46)
[2022-08-25 10:51] LABS: APPEARANCE,URINE CLEAR; BILIRUBIN,URINE NEGATIVE (NEGATIVE); COLOR,URINE YELLOW; GLUCOSE,URINE NEGATIVE (NEGATIVE); KETONES,URINE NEGATIVE (NEGATIVE); LEUKOCYTE ESTERASE,URINE NEGATIVE (NEGATIVE); NITRITE,URINE NEGATIVE (NEGATIVE); OCCULT BLOOD,URINE NEGATIVE (NEGATIVE); PH,URINE 6.5 (5.0-8.0); PROTEIN,URINE NEGATIVE (NEGATIVE); UROBILINOGEN,URINE 0.2 EU/dL (<2.0)
[2022-08-25] MEDS ORDERED: Acetaminophen 325 MG Tab PO ONE (12:21)
[2022-08-25] MEDS ORDERED: Enoxaparin 40 MG/0.4 ML Syringe SUBCUT SCH (14:00)
[2022-08-25] MEDS ORDERED: Nitroglycerin 0.4 MG Tab.SL SL PRN (14:00)
[2022-08-25] MEDS ORDERED: Cyanocobalamin (Vitamin B12) 1,000 MCG/ML SDV IM SCH (14:00)
[2022-08-25] MEDS ORDERED: Pneumococcal Polyvalent-23 Vaccine 0.5 ML SDV IM ONE (15:54)
[2022-08-25] MEDS: Pantoprazole 40 MG Tab.CR PO SCH (16:24)
[2022-08-25] MEDS ORDERED: Glucagon,Human Recombinant 1 MG Vial IM PRN (19:38)
[2022-08-25] MEDS ORDERED: 50% Dextrose in Water 50 ML Syringe IVPUSH PRN (19:38)
[2022-08-25] MEDS: Morphine 2 MG/ML SYRINGE IVPUSH PRN (20:07)
[2022-08-25] MEDS: Carvedilol 3.125 MG Tab PO SCH (20:08)
[2022-08-25] MEDS ORDERED: Non-Formulary Medication 1 Each (Rosuvastatin Calcium 20 MG Tablet) PO SCH (21:00)
[2022-08-25] MEDS ORDERED: LEVETIRACETAM 1000 MG PO SCH (21:00)
[2022-08-25] MEDS ORDERED: PARoxetine 20 MG Tab PO SCH (21:00)
[2022-08-26] MEDS ORDERED: Melatonin 3 MG Tab PO PRN (00:18)
[2022-08-26] MEDS: Morphine 2 MG/ML SYRINGE IVPUSH PRN (03:57)
[2022-08-26 05:55] LABS: BASOPHILS PERCENT AUTO 0.2 % (0.0-1.5); EOSINOPHILS ABSOLUTE AUTO 0.1 K/uL (0.0-0.7); EOSINOPHILS PERCENT AUTO 2.1 % (0.0-7.0); HEMATOCRIT 38.5 % (38.0-50.0); HEMOGLOBIN 12.6 g/dL (13.0-17.0); LYMPHOCYTES ABSOLUTE AUTO 1.3 K/uL (0.6-2.4); LYMPHOCYTES PERCENT AUTO 20.5 % (16.0-40.0); MEAN CORPUSCULAR HEMOGLOBIN 28.4 pg (27.0-32.0); MEAN CORPUSCULAR HGB CONC 32.7 g/dL (31.0-37.0); MEAN CORPUSCULAR VOLUME 86.7 fL (80.0-98.0); MONOCYTES ABSOLUTE AUTO 0.7 K/uL (0.0-0.8); MONOCYTES PERCENT AUTO 10.8 % (0.0-15.0); NEUTROPHILS ABSOLUTE AUTO 4.1 K/uL (1.4-5.7); NEUTROPHILS PERCENT AUTO 66.4 % (48.0-80.0); NRBC ABSOLUTE 0 K/uL; PLATELET COUNT,PLT 240 K/uL (150-400); RED BLOOD CELL COUNT 4.44 M/uL (4.50-5.90); WHITE BLOOD CELL COUNT,WBC 6.11 K/uL (4.0-11.0)
[2022-08-26 06:06] LABS: CARBON DIOXIDE,CO2 28.1 mmol/L (21.0-32.0); EST CRCL DRUG DOSING (CG) 59.67 mL/min; MAGNESIUM 1.9 mg/dL (1.8-2.4); POTASSIUM,K 3.5 mmol/L (3.5-5.1)
[2022-08-26] MEDS: Insulin Aspart 100 Units/ML 3 ML Pen SUBCUT SCH ×2 (06:29→12:00)
[2022-08-26] MEDS ORDERED: levETIRAcetam 500 MG Tab PO SCH (06:45)
[2022-08-26] MEDS ORDERED: Rosuvastatin 10 MG Tab PO SCH (06:46)
[2022-08-26 07:50] VITALS: BP 126/79; PULSE 73
[2022-08-26] MEDS: Pantoprazole 40 MG Tab.CR PO SCH (08:41)
[2022-08-26] MEDS: Carvedilol 3.125 MG Tab PO SCH (08:41)
[2022-08-26] MEDS ORDERED: Clopidogrel 75 MG Tab PO SCH (09:00)
[2022-08-26] MEDS ORDERED: Aspirin 81 MG Tab.EC PO SCH (09:00)
[2022-08-26] MEDS ORDERED: Non-Formulary Medication 1 Each (Aripiprazole 2 MG Tablet) PO SCH (09:00)
[2022-08-26] MEDS ORDERED: ERGOCALCIFEROL 1250 MCG PO SCH (14:00)
== END 2022-08-26 12:10 | disposition home or self-care (01) ==
LOC: MW.ED 08:30 → MW.MS 14:21
PROVIDERS: ADMIT Internal Medicine; ATTEND Internal Medicine
DX: R10.13 Epigastric pain (principal); R07.89 Other chest pain; E87.6 Hypokalemia; E83.42 Hypomagnesemia; I25.10 Atherosclerotic heart disease of native coronary artery without angina pectoris; F41.9 Anxiety disorder, unspecified; E78.5 Hyperlipidemia, unspecified; K21.9 Gastro-esophageal reflux disease without esophagitis; E11.9 Type 2 diabetes mellitus without complications; I25.2 Old myocardial infarction; M19.90 Unspecified osteoarthritis, unspecified site; Z79.82 Long term (current) use of aspirin; Z79.02 Long term (current) use of antithrombotics/antiplatelets; Z79.899 Other long term (current) drug therapy
CPT/HCPCS: 36415; 71045; 76700; 80048; 80053; 81003; 82947; 83735; 84484; 85025; 90732; 93005; 96361; 96365; 96366; 96368; 96372; 96375; 96376; 99285; A9270; G0009; G0378; J1650; J2060; J2270; J3420; J3475; J3480; J7050; J7120; 93010; 99222; 99239; 99284

== ENCOUNTER 2022-09-26 12:54 | Emergency (ER) | payer MEDICARE, OTHER | END 2022-09-26 15:31 | disposition left against medical advice (07) | LOC: MW.ED 12:54 | DX: Z53.21 Procedure and treatment not carried out due to patient leaving prior to being seen by health care provider (principal) ==

== ENCOUNTER 2022-09-27 09:00 | Emergency (ER) | payer MEDICARE, OTHER ==
[2022-09-27] MEDS ORDERED: Aspirin 81 MG Tab.Chew PO ONE (09:19)
[2022-09-27] MEDS ORDERED: Nitroglycerin 0.4 MG Tab.SL SL ONE (09:19)
[2022-09-27] MEDS ORDERED: Pantoprazole 40 MG in Sodium Chloride 0.9% 10 ML IVPUSH ONE (09:38)
[2022-09-27] MEDS ORDERED: Aluminum Hydroxide/Magnesium Hydroxide/Simethicone XS Susp 30 ML Cup PO ONE (09:38)
[2022-09-27] MEDS ORDERED: Famotidine 20 MG Tab PO ONE (09:38)
[2022-09-27 09:48] LABS: BASOPHILS PERCENT AUTO 0.3 % (0.0-1.5); EOSINOPHILS ABSOLUTE AUTO 0.1 K/uL (0.0-0.7); EOSINOPHILS PERCENT AUTO 2.3 % (0.0-7.0); HEMATOCRIT 38.9 % (38.0-50.0); HEMOGLOBIN 12.8 g/dL (13.0-17.0); LYMPHOCYTES ABSOLUTE AUTO 0.9 K/uL (0.6-2.4); LYMPHOCYTES PERCENT AUTO 22.9 % (16.0-40.0); MEAN CORPUSCULAR HEMOGLOBIN 28.5 pg (27.0-32.0); MEAN CORPUSCULAR HGB CONC 32.9 g/dL (31.0-37.0); MEAN CORPUSCULAR VOLUME 86.6 fL (80.0-98.0); MONOCYTES ABSOLUTE AUTO 0.5 K/uL (0.0-0.8); NEUTROPHILS ABSOLUTE AUTO 2.5 K/uL (1.4-5.7); NEUTROPHILS PERCENT AUTO 62.5 % (48.0-80.0); NRBC ABSOLUTE 0 K/uL; PLATELET COUNT,PLT 227 K/uL (150-400); RED BLOOD CELL COUNT 4.49 M/uL (4.50-5.90); WHITE BLOOD CELL COUNT,WBC 3.93 K/uL (4.0-11.0)
[2022-09-27 10:33] LABS: A/G RATIO 1.1 (0.9-1.6); ALBUMIN 3.8 g/dL (3.4-5.0); BILIRUBIN TOTAL 0.4 mg/dL (0.2-1.0); CALCIUM 8.7 mg/dL (8.5-10.1); CARBON DIOXIDE,CO2 25.9 mmol/L (21.0-32.0); CREATININE 0.8 mg/dL (0.8-1.3); EST CRCL DRUG DOSING (CG) 66.81 mL/min; POTASSIUM,K 3.2 mmol/L (3.5-5.1); PROTEIN TOTAL,TP 7.3 g/dL (6.4-8.2)
[2022-09-27] MEDS ORDERED: Acetaminophen 325 MG Tab PO ONE (11:07)
[2022-09-27 12:35] VITALS: BP 180/104; PULSE 80
== END 2022-09-27 13:01 | disposition home or self-care (01) ==
LOC: MW.ED 09:00
DX: R07.89 Other chest pain (principal); R06.02 Shortness of breath; R42 Dizziness and giddiness; I25.10 Atherosclerotic heart disease of native coronary artery without angina pectoris; I10 Essential (primary) hypertension; I25.2 Old myocardial infarction; E78.00 Pure hypercholesterolemia, unspecified; K21.9 Gastro-esophageal reflux disease without esophagitis; M19.90 Unspecified osteoarthritis, unspecified site; E11.9 Type 2 diabetes mellitus without complications; Z79.899 Other long term (current) drug therapy; Z79.82 Long term (current) use of aspirin; Z79.02 Long term (current) use of antithrombotics/antiplatelets
CPT/HCPCS: 36415; 71045; 80053; 83690; 84484; 85025; 93005; 96374; 99285; A9270; C9113; J3490

== ENCOUNTER 2022-12-29 21:04 | Emergency (ER) | payer MEDICARE ==
[2022-12-29] MEDS ORDERED: Nitroglycerin 0.4 MG Tab.SL SL ONE (21:19)
[2022-12-29] MEDS ORDERED: Aspirin 81 MG Tab.Chew PO ONE (21:19)
[2022-12-29 21:25] LABS: BASOPHILS PERCENT AUTO 0.2 % (0.0-1.5); EOSINOPHILS ABSOLUTE AUTO 0.1 K/uL (0.0-0.7); EOSINOPHILS PERCENT AUTO 2.2 % (0.0-7.0); HEMOGLOBIN 12.8 g/dL (13.0-17.0); LYMPHOCYTES ABSOLUTE AUTO 1.6 K/uL (0.6-2.4); LYMPHOCYTES PERCENT AUTO 33.3 % (16.0-40.0); MEAN CORPUSCULAR HEMOGLOBIN 28.3 pg (27.0-32.0); MEAN CORPUSCULAR HGB CONC 32.8 g/dL (31.0-37.0); MEAN CORPUSCULAR VOLUME 86.3 fL (80.0-98.0); MONOCYTES ABSOLUTE AUTO 0.7 K/uL (0.0-0.8); MONOCYTES PERCENT AUTO 14.4 % (0.0-15.0); NEUTROPHILS ABSOLUTE AUTO 2.5 K/uL (1.4-5.7); NEUTROPHILS PERCENT AUTO 49.9 % (48.0-80.0); NRBC ABSOLUTE 0 K/uL; PLATELET COUNT,PLT 244 K/uL (150-400); RED BLOOD CELL COUNT 4.52 M/uL (4.50-5.90); WHITE BLOOD CELL COUNT,WBC 4.92 K/uL (4.0-11.0)
[2022-12-29 21:40] LABS: INR 0.98 (0.86-1.11); PTT,PARTIAL THROMBOPLSTIN TIME 26.5 SEC (23.9-30.7)
[2022-12-29] MEDS ORDERED: Morphine 4 MG/ML Syringe IVPUSH ONE (21:52)
[2022-12-29 22:01] LABS: ALBUMIN 3.8 g/dL (3.4-5.0); BILIRUBIN TOTAL 0.3 mg/dL (0.2-1.0); CALCIUM 8.6 mg/dL (8.5-10.1); CARBON DIOXIDE,CO2 26.6 mmol/L (21.0-32.0); CREATININE 0.8 mg/dL (0.8-1.3); EST CRCL DRUG DOSING (CG) 74.59 mL/min; MAGNESIUM 1.7 mg/dL (1.8-2.4); POTASSIUM,K 3.8 mmol/L (3.5-5.1); PROTEIN TOTAL,TP 7.5 g/dL (6.4-8.2)
[2022-12-29 23:58] VITALS: BP 122/73; PULSE 74
== END 2022-12-29 23:56 | disposition home or self-care (01) ==
LOC: MW.ED 21:04
DX: R07.89 Other chest pain (principal); K21.9 Gastro-esophageal reflux disease without esophagitis; E11.9 Type 2 diabetes mellitus without complications; I25.10 Atherosclerotic heart disease of native coronary artery without angina pectoris; E78.5 Hyperlipidemia, unspecified; Z95.5 Presence of coronary angioplasty implant and graft; Z79.02 Long term (current) use of antithrombotics/antiplatelets; Z79.899 Other long term (current) drug therapy
CPT/HCPCS: 36415; 71045; 80053; 83735; 84484; 85025; 85610; 85730; 96374; 99285; A9270; J2270; 93005; 93010; 99284

== ENCOUNTER 2023-04-06 19:29 | Emergency (ER) | payer MEDICARE ==
[2023-04-06] MEDS ORDERED: Sodium Chloride 0.9% 2.5 ML Syringe FLUSH PRN (19:33)
[2023-04-06] MEDS ORDERED: Sodium Chloride 0.9% 10 ML Syringe FLUSH PRN (19:33)
[2023-04-06 20:04] LABS: BASOPHILS ABSOLUTE AUTO 0.01 K/uL (0.00-0.20); BASOPHILS PERCENT AUTO 0.1 % (0.0-1.0); EOSINOPHILS ABSOLUTE AUTO 0.13 K/uL (0.00-0.45); EOSINOPHILS PERCENT AUTO 1.6 % (0.0-6.0); HEMATOCRIT 40.6 % (42.0-52.0); HEMOGLOBIN 13.8 g/dL (14.0-18.0); IMMATURE GRAN ABSOLUTE AUTO 0.01 K/uL (0.00-0.05); IMMATURE GRAN PERCENT AUTO 0.1 % (0.0-0.4); LYMPHOCYTES ABSOLUTE AUTO 1.13 K/uL (1.00-4.80); LYMPHOCYTES PERCENT AUTO 13.7 % (24.0-44.0); MEAN CORPUSCULAR HEMOGLOBIN 29.1 pg (28.0-32.0); MEAN CORPUSCULAR VOLUME 85.5 fL (83.0-99.0); MEAN PLATELET VOLUME 9.8 fL (9.4-12.4); MONOCYTES ABSOLUTE AUTO 0.81 K/uL (0.00-0.80); MONOCYTES PERCENT AUTO 9.8 % (0.0-8.0); NEUTROPHILS ABSOLUTE AUTO 6.14 K/uL (1.80-7.70); NEUTROPHILS PERCENT AUTO 74.7 % (41.0-71.0); PLATELET COUNT,PLT 242 K/uL (150-400); RED BLOOD CELL COUNT 4.75 M/uL (4.52-5.90); WHITE BLOOD CELL COUNT,WBC 8.23 K/uL (3.9-11.3)
[2023-04-06 20:14] LABS: INR 0.97 (0.86-1.11)
[2023-04-06 20:30] LABS: A/G RATIO 1.1 (0.9-1.6); ALANINE AMINOTRANSFERASE,ALT 24 IU/L (14-63); ALBUMIN 4.1 g/dL (3.4-5.0); ALKALINE PHOSPHATASE 102 U/L (46-116); ASPARTATE AMNIOTRANSFERASE,AST 16 IU/L (15-37); BILIRUBIN TOTAL 0.4 mg/dL (0.2-1.0); BLOOD UREA NITROGEN,BUN 25 mg/dL (7.0-18.0); CALCIUM 9.2 mg/dL (8.5-10.1); CARBON DIOXIDE,CO2 28.3 mmol/L (21.0-32.0); CHLORIDE,CL 104 mmol/L (98-107); GLUCOSE RANDOM 127 mg/dL (74-106); LIPASE 22 U/L (16-77); POTASSIUM,K 3.5 mmol/L (3.5-5.1); PROTEIN TOTAL,TP 7.8 g/dL (6.4-8.2); SODIUM,NA 142 mmol/L (136-148)
[2023-04-06 20:32] LABS: ESTIMATED GFR 78 mL/min (>60)
[2023-04-06] MEDS ORDERED: Lidocaine 4% 1 each Patch TOP STA (21:13)
[2023-04-06] MEDS ORDERED: Famotidine 20 MG/2 ML SDV IVPUSH ONE (21:17)
[2023-04-06 23:01] VITALS: BP 143/92; PULSE 86
== END 2023-04-06 23:00 | disposition home or self-care (01) ==
LOC: MW.ED 19:29
DX: R07.9 Chest pain, unspecified (principal); I25.10 Atherosclerotic heart disease of native coronary artery without angina pectoris; I25.2 Old myocardial infarction; I10 Essential (primary) hypertension; Z79.02 Long term (current) use of antithrombotics/antiplatelets; Z79.899 Other long term (current) drug therapy
CPT/HCPCS: 36415; 71045; 80053; 83690; 84484; 85025; 85610; 93005; 96374; 99285; A9270; J3490

== ENCOUNTER 2023-11-20 15:39 | Observation (INO) | payer MEDICARE ==
[2023-11-20] MEDS: Ondansetron 4 MG/2 ML SDV IVPUSH STA (15:52)
[2023-11-20 15:54] LABS: BASOPHILS ABSOLUTE AUTO 0.01 K/uL (0.00-0.20); BASOPHILS PERCENT AUTO 0.2 % (0.0-1.0); EOSINOPHILS PERCENT AUTO 1.7 % (0.0-6.0); HEMOGLOBIN 12.2 g/dL (14.0-18.0); IMMATURE GRAN ABSOLUTE AUTO 0.02 K/uL (0.00-0.05); IMMATURE GRAN PERCENT AUTO 0.3 % (0.0-0.4); LYMPHOCYTES ABSOLUTE AUTO 1.08 K/uL (1.00-4.80); LYMPHOCYTES PERCENT AUTO 18.2 % (24.0-44.0); MEAN CORPUSCULAR HEMOGLOBIN 29.3 pg (28.0-32.0); MEAN CORPUSCULAR HGB CONC 33.9 g/dL (32.0-36.0); MEAN CORPUSCULAR VOLUME 86.3 fL (83.0-99.0); MEAN PLATELET VOLUME 9.5 fL (9.4-12.4); MONOCYTES ABSOLUTE AUTO 0.58 K/uL (0.00-0.80); MONOCYTES PERCENT AUTO 9.7 % (0.0-8.0); NEUTROPHILS ABSOLUTE AUTO 4.16 K/uL (1.80-7.70); NEUTROPHILS PERCENT AUTO 69.9 % (41.0-71.0); PLATELET COUNT,PLT 212 K/uL (150-400); RED BLOOD CELL COUNT 4.17 M/uL (4.52-5.90); WHITE BLOOD CELL COUNT,WBC 5.95 K/uL (3.9-11.3)
[2023-11-20] MEDS: Ondansetron 4 MG/2 ML SDV ONE (16:04)
[2023-11-20 16:05] LABS: INR 1.07 (0.86-1.11); PTT,PARTIAL THROMBOPLSTIN TIME 25.4 SEC (23.9-30.7)
[2023-11-20 16:21] LABS: A/G RATIO 1.3 (0.9-1.6); ACETAMINOPHEN <2.0 ug/mL; ALANINE AMINOTRANSFERASE,ALT 20 IU/L (14-63); ALKALINE PHOSPHATASE 85 U/L (46-116); ASPARTATE AMNIOTRANSFERASE,AST 19 IU/L (15-37); BILIRUBIN TOTAL 0.7 mg/dL (0.2-1.0); BLOOD UREA NITROGEN,BUN 24 mg/dL (7.0-18.0); CALCIUM 8.6 mg/dL (8.5-10.1); CARBON DIOXIDE,CO2 26.2 mmol/L (21.0-32.0); CHLORIDE,CL 103 mmol/L (98-107); EST CRCL DRUG DOSING (CG) 58.76 mL/min; ETHANOL BLOOD MEDICAL <3 mg/dL; GLUCOSE RANDOM 144 mg/dL (74-106); LIPASE 23 U/L (16-77); MAGNESIUM 1.5 mg/dL (1.8-2.4); POTASSIUM,K 3.3 mmol/L (3.5-5.1); SALICYLATE 1.1 mg/dL (0.0-20.0); SODIUM,NA 141 mmol/L (136-148)
[2023-11-20 16:22] LABS: ESTIMATED GFR 78 mL/min (>60)
[2023-11-20] MEDS: Piperacillin/Tazobactam 4.5 GM in Sodium Chloride 0.9% 100 ML IV STA (16:35)
[2023-11-20 16:43] LABS: BASE EXCESS VENOUS -1.8 (-2.0-3.0); PH,VENOUS 7.36 (7.31-7.41)
[2023-11-20] MEDS: Magnesium Sulfate/Water 2 GM in Premix Bag 1 BAG IV ONE (16:46)
[2023-11-20 16:56] LABS: LACTIC ACID 1.4 mmol/L (0.4-2.0)
[2023-11-20] MEDS: Magnesium Sulfate/Water 2 GM in Premix Bag 1 BAG IV STA (17:00)
[2023-11-20 17:51] LABS: CORONAVIRUS COVID-19 NAA NEGATIVE (NEGATIVE); INFLUENZA A NAA NEGATIVE (NEGATIVE); INFLUENZA B NAA NEGATIVE (NEGATIVE); RESPIRATORY SYNCYTIAL VIR NAA NEGATIVE (NEGATIVE)
[2023-11-20] MEDS: Potassium Chloride 20 MEQ Tab.ER PO ONE (20:36)
[2023-11-20] MEDS: PARoxetine 20 MG Tab PO SCH (21:46)
[2023-11-20] MEDS: levETIRAcetam 500 MG Tab PO SCH (21:46)
[2023-11-20] MEDS: Rosuvastatin 10 MG Tab PO SCH (21:46)
[2023-11-20] MEDS: Carvedilol 3.125 MG Tab PO SCH (21:47)
[2023-11-20] MEDS: amLODIPine 5 MG Tab PO SCH (21:47)
[2023-11-20 22:06] LABS: APPEARANCE,URINE CLEAR; BILIRUBIN,URINE NEGATIVE (NEGATIVE); COLOR,URINE YELLOW; GLUCOSE,URINE NEGATIVE (NEGATIVE); KETONES,URINE NEGATIVE (NEGATIVE); LEUKOCYTE ESTERASE,URINE NEGATIVE (NEGATIVE); NITRITE,URINE NEGATIVE (NEGATIVE); OCCULT BLOOD,URINE NEGATIVE (NEGATIVE); PROTEIN,URINE NEGATIVE (NEGATIVE); UROBILINOGEN,URINE 0.2 EU/dL (<2.0)
[2023-11-20 22:17] LABS: AMPHETAMINES SCREEN, URINE NEGATIVE (CUTOFF=500); BARBITURATE SCREEN,URINE NEGATIVE (CUTOFF=200); BENZODIAZEPINES SCREEN,URINE NEGATIVE (CUTOFF=150); BUPRENORPHINE SCREEN,URINE NEGATIVE (CUTOFF=10); METHADONE SCREEN, URINE NEGATIVE (CUTOFF=200); METHAMPHETAMINES SCREEN, URINE NEGATIVE (CUTOFF=500); OXYCODONE SCREEN,URINE NEGATIVE (CUT0FF=100); PCP SCREEN,URINE NEGATIVE (CUTOFF=25); THC SCREEN,URINE 20 NG/ML NEGATIVE (CUTOFF=50)
[2023-11-20 22:17] LABS: BACTERIA,URINE NOT SEEN (NEGATIVE); EPITHELIAL CELLS,URINE NOT SEEN (NONE-FEW); RBC,URINE NONE SEEN (0-2/HPF); WBC,URINE 0-1 (0-5/HPF)
[2023-11-21] MEDS: Acetaminophen 325 MG Tab PO PRN (03:57)
[2023-11-21 06:17] LABS: BASOPHILS ABSOLUTE AUTO 0.02 K/uL (0.00-0.20); BASOPHILS PERCENT AUTO 0.4 % (0.0-1.0); EOSINOPHILS ABSOLUTE AUTO 0.09 K/uL (0.00-0.45); EOSINOPHILS PERCENT AUTO 1.8 % (0.0-6.0); HEMATOCRIT 35.1 % (42.0-52.0); HEMOGLOBIN 11.8 g/dL (14.0-18.0); IMMATURE GRAN ABSOLUTE AUTO 0.01 K/uL (0.00-0.05); IMMATURE GRAN PERCENT AUTO 0.2 % (0.0-0.4); LYMPHOCYTES ABSOLUTE AUTO 1.09 K/uL (1.00-4.80); LYMPHOCYTES PERCENT AUTO 21.8 % (24.0-44.0); MEAN CORPUSCULAR HEMOGLOBIN 29.6 pg (28.0-32.0); MEAN CORPUSCULAR HGB CONC 33.6 g/dL (32.0-36.0); MONOCYTES ABSOLUTE AUTO 0.48 K/uL (0.00-0.80); MONOCYTES PERCENT AUTO 9.6 % (0.0-8.0); NEUTROPHILS PERCENT AUTO 66.2 % (41.0-71.0); PLATELET COUNT,PLT 199 K/uL (150-400); RED BLOOD CELL COUNT 3.99 M/uL (4.52-5.90); WHITE BLOOD CELL COUNT,WBC 4.99 K/uL (3.9-11.3)
[2023-11-21 06:32] LABS: CALCIUM 8.5 mg/dL (8.5-10.1); CARBON DIOXIDE,CO2 25.8 mmol/L (21.0-32.0); EST CRCL DRUG DOSING (CG) 58.76 mL/min; POTASSIUM,K 3.8 mmol/L (3.5-5.1)
[2023-11-21] MEDS: Aspirin 81 MG Tab.EC PO SCH (08:11)
[2023-11-21] MEDS: Pantoprazole 40 MG Tab.CR PO SCH (08:12)
[2023-11-21] MEDS: Clopidogrel 75 MG Tab PO SCH (08:12)
[2023-11-21] MEDS ORDERED: Non-Formulary Medication 1 Each (Aripiprazole 2 MG Tablet) PO SCH (09:00)
[2023-11-21 12:12] VITALS: BP 114/63; PULSE 61
[2023-11-21] MEDS ORDERED: Rosuvastatin 10 MG Tab PO SCH (21:00)
[2023-11-24 05:03] LABS: KEPPRA 13 ug/mL (10-40)
== END 2023-11-21 11:55 | disposition home or self-care (01) ==
LOC: MW.ED 15:39 → MW.MS 18:33
PROVIDERS: ADMIT Internal Medicine; ATTEND Internal Medicine
DX: R41.82 Altered mental status, unspecified (principal); I25.10 Atherosclerotic heart disease of native coronary artery without angina pectoris; I10 Essential (primary) hypertension; G40.909 Epilepsy, unspecified, not intractable, without status epilepticus; R55 Syncope and collapse; I65.02 Occlusion and stenosis of left vertebral artery; Z79.82 Long term (current) use of aspirin; Z79.899 Other long term (current) drug therapy; Z20.822 Contact with and (suspected) exposure to COVID-19
CPT/HCPCS: 0241U; 36415; 70450; 70496; 70498; 71045; 80048; 80053; 80143; 80177; 80179; 80305; 80307; 81001; 82140; 82803; 83605; 83690; 83735; 84484; 85025; 85610; 85730; 87040; 93005; A9270; G0378; J2405; J2543; J3475; J3490; 93010; 99285

== ENCOUNTER 2023-11-24 19:57 | Emergency (ER) | payer MEDICARE ==
[2023-11-24 20:02] VITALS: PULSE 59
[2023-11-24 20:08] LABS: BASOPHILS ABSOLUTE AUTO 0.01 K/uL (0.00-0.20); BASOPHILS PERCENT AUTO 0.2 % (0.0-1.0); EOSINOPHILS ABSOLUTE AUTO 0.06 K/uL (0.00-0.45); EOSINOPHILS PERCENT AUTO 1.1 % (0.0-6.0); HEMATOCRIT 37.1 % (42.0-52.0); HEMOGLOBIN 12.3 g/dL (14.0-18.0); IMMATURE GRAN ABSOLUTE AUTO 0.01 K/uL (0.00-0.05); IMMATURE GRAN PERCENT AUTO 0.2 % (0.0-0.4); LYMPHOCYTES ABSOLUTE AUTO 0.96 K/uL (1.00-4.80); MEAN CORPUSCULAR HEMOGLOBIN 28.5 pg (28.0-32.0); MEAN CORPUSCULAR HGB CONC 33.2 g/dL (32.0-36.0); MEAN CORPUSCULAR VOLUME 86.1 fL (83.0-99.0); MEAN PLATELET VOLUME 9.3 fL (9.4-12.4); MONOCYTES ABSOLUTE AUTO 0.61 K/uL (0.00-0.80); MONOCYTES PERCENT AUTO 11.5 % (0.0-8.0); NEUTROPHILS ABSOLUTE AUTO 3.67 K/uL (1.80-7.70); PLATELET COUNT,PLT 214 K/uL (150-400); RED BLOOD CELL COUNT 4.31 M/uL (4.52-5.90); WHITE BLOOD CELL COUNT,WBC 5.32 K/uL (3.9-11.3)
[2023-11-24 20:32] LABS: A/G RATIO 1.3 (0.9-1.6); ALBUMIN 3.8 g/dL (3.4-5.0); BILIRUBIN TOTAL 0.5 mg/dL (0.2-1.0); CALCIUM 8.7 mg/dL (8.5-10.1); CARBON DIOXIDE,CO2 25.5 mmol/L (21.0-32.0); EST CRCL DRUG DOSING (CG) 62.84 mL/min; MAGNESIUM 1.5 mg/dL (1.8-2.4); POTASSIUM,K 3.7 mmol/L (3.5-5.1); PROTEIN TOTAL,TP 6.7 g/dL (6.4-8.2)
[2023-11-24] MEDS: Sodium Chloride 0.9% 1,000 ML IV STA (20:39)
[2023-11-24] MEDS: Sodium Chloride 0.9% 2.5 ML Syringe FLUSH PRN (20:40)
[2023-11-24] MEDS: Sodium Chloride 0.9% 10 ML Syringe FLUSH PRN (20:40)
[2023-11-24] MEDS: Magnesium Sulfate/Water 2 GM in Premix Bag 1 BAG IV ONE (21:28)
[2023-11-24 21:31] LABS: APPEARANCE,URINE CLEAR; BILIRUBIN,URINE NEGATIVE (NEGATIVE); COLOR,URINE YELLOW; GLUCOSE,URINE NEGATIVE (NEGATIVE); KETONES,URINE NEGATIVE (NEGATIVE); LEUKOCYTE ESTERASE,URINE NEGATIVE (NEGATIVE); NITRITE,URINE NEGATIVE (NEGATIVE); OCCULT BLOOD,URINE NEGATIVE (NEGATIVE); PH,URINE 5.5 (5.0-8.0); PROTEIN,URINE NEGATIVE (NEGATIVE)
[2023-11-24 23:42] VITALS: BP 135/62
== END 2023-11-24 23:42 | disposition home or self-care (01) ==
LOC: MW.ED 19:57
DX: R41.82 Altered mental status, unspecified (principal); E83.42 Hypomagnesemia; I10 Essential (primary) hypertension; I25.2 Old myocardial infarction; E11.9 Type 2 diabetes mellitus without complications; Z75.8 Other problems related to medical facilities and other health care; Z79.82 Long term (current) use of aspirin; Z79.899 Other long term (current) drug therapy
CPT/HCPCS: 36415; 70450; 71045; 72125; 80053; 81003; 82550; 82947; 83735; 85025; 93005; 96361; 96365; 96366; 99285; J3475; J3490; J7030; 93010

== ENCOUNTER 2024-02-24 21:22 | Emergency (ER) | payer MEDICARE, OTHER ==
[2024-02-24] MEDS ORDERED: Sodium Chloride 0.9% 10 ML Syringe FLUSH PRN (21:24)
[2024-02-24] MEDS: Aspirin 81 MG Tab.Chew PO ONE (21:44)
[2024-02-24] MEDS: Nitroglycerin 0.4 MG Tab.SL SL PRN (22:04)
[2024-02-24 22:15] LABS: BASOPHILS ABSOLUTE AUTO 0.02 K/uL (0.00-0.20); BASOPHILS PERCENT AUTO 0.4 % (0.0-1.0); EOSINOPHILS ABSOLUTE AUTO 0.13 K/uL (0.00-0.45); EOSINOPHILS PERCENT AUTO 2.3 % (0.0-6.0); HEMATOCRIT 38.7 % (42.0-52.0); HEMOGLOBIN 12.7 g/dL (14.0-18.0); IMMATURE GRAN ABSOLUTE AUTO 0.01 K/uL (0.00-0.05); IMMATURE GRAN PERCENT AUTO 0.2 % (0.0-0.4); LYMPHOCYTES ABSOLUTE AUTO 1.94 K/uL (1.00-4.80); MEAN CORPUSCULAR HEMOGLOBIN 28.3 pg (28.0-32.0); MEAN CORPUSCULAR HGB CONC 32.8 g/dL (32.0-36.0); MEAN CORPUSCULAR VOLUME 86.2 fL (83.0-99.0); MEAN PLATELET VOLUME 9.2 fL (9.4-12.4); MONOCYTES ABSOLUTE AUTO 0.61 K/uL (0.00-0.80); MONOCYTES PERCENT AUTO 10.7 % (0.0-8.0); NEUTROPHILS ABSOLUTE AUTO 2.99 K/uL (1.80-7.70); NEUTROPHILS PERCENT AUTO 52.4 % (41.0-71.0); PLATELET COUNT,PLT 227 K/uL (150-400); RED BLOOD CELL COUNT 4.49 M/uL (4.52-5.90)
[2024-02-24] MEDS ORDERED: Morphine 2 MG/ML SYRINGE IVPUSH PRN (22:20)
[2024-02-24 22:33] LABS: INR 1.03 (0.86-1.11)
[2024-02-24] MEDS: Pantoprazole 40 MG in Sodium Chloride 0.9% 10 ML IVPUSH ONE (22:39)
[2024-02-24] MEDS: Morphine 4 MG/ML Syringe IVPUSH ONE (22:39)
[2024-02-24 22:52] LABS: A/G RATIO 1.1 (0.9-1.6); ALBUMIN 3.8 g/dL (3.4-5.0); BILIRUBIN TOTAL 0.4 mg/dL (0.2-1.0); CALCIUM 8.8 mg/dL (8.5-10.1); CARBON DIOXIDE,CO2 24.9 mmol/L (21.0-32.0); CREATININE 0.9 mg/dL (0.8-1.3); EST CRCL DRUG DOSING (CG) 65.28 mL/min; MAGNESIUM 1.7 mg/dL (1.8-2.4); POTASSIUM,K 3.5 mmol/L (3.5-5.1); PROTEIN TOTAL,TP 7.4 g/dL (6.4-8.2)
[2024-02-24] MEDS ORDERED: Iopamidol 755 MG/ML 500 ML Multipack Bottle IVPUSH ONE (23:03)
[2024-02-24 23:18] LABS: APPEARANCE,URINE CLEAR; BILIRUBIN,URINE NEGATIVE (NEGATIVE); COLOR,URINE YELLOW; GLUCOSE,URINE NEGATIVE (NEGATIVE); KETONES,URINE NEGATIVE (NEGATIVE); LEUKOCYTE ESTERASE,URINE NEGATIVE (NEGATIVE); NITRITE,URINE NEGATIVE (NEGATIVE); OCCULT BLOOD,URINE TRACE-INTACT (NEGATIVE); PROTEIN,URINE NEGATIVE (NEGATIVE); UROBILINOGEN,URINE 0.2 EU/dL (<2.0)
[2024-02-24 23:30] LABS: BACTERIA,URINE RARE (NEGATIVE); EPITHELIAL CELLS,URINE RARE (NONE-FEW); RBC,URINE 0-1 (0-2/HPF); WBC,URINE 0-1 (0-5/HPF)
[2024-02-24] MEDS: Magnesium Sulfate/Water Premix 2 GM in Premix Bag 1 BAG IV ONE (23:31)
[2024-02-25 00:56] VITALS: BP 116/68
[2024-02-25 00:59] VITALS: PULSE 75
== END 2024-02-25 00:57 | disposition home or self-care (01) ==
LOC: MW.ED 21:22
DX: I10 Essential (primary) hypertension (principal); I44.7 Left bundle-branch block, unspecified; E83.42 Hypomagnesemia; Z95.5 Presence of coronary angioplasty implant and graft; I25.10 Atherosclerotic heart disease of native coronary artery without angina pectoris; I25.2 Old myocardial infarction; K21.9 Gastro-esophageal reflux disease without esophagitis; E11.9 Type 2 diabetes mellitus without complications; E78.00 Pure hypercholesterolemia, unspecified; Z79.899 Other long term (current) drug therapy; Z79.82 Long term (current) use of aspirin; Z79.02 Long term (current) use of antithrombotics/antiplatelets
CPT/HCPCS: 36415; 71045; 80053; 81001; 83690; 83735; 83880; 84484; 85025; 85610; 93005; 96365; 96375; 99285; A9270; J2270; J2470; J3475; J3490; 93010

== ENCOUNTER 2024-08-08 21:02 | Emergency (ER) | payer SELFPAY ==
[2024-08-08] MEDS ORDERED: Sodium Chloride 0.9% 10 ML Syringe FLUSH PRN (21:23)
[2024-08-08] MEDS: Nitroglycerin 0.4 MG Tab.SL SL ONE (21:27)
[2024-08-08] MEDS: Aspirin 81 MG Tab.Chew PO ONE (21:28)
[2024-08-08 21:50] LABS: BASOPHILS ABSOLUTE AUTO 0.03 K/uL (0.00-0.20); BASOPHILS PERCENT AUTO 0.6 % (0.0-1.0); EOSINOPHILS ABSOLUTE AUTO 0.23 K/uL (0.00-0.45); EOSINOPHILS PERCENT AUTO 4.3 % (0.0-6.0); HEMATOCRIT 38.8 % (42.0-52.0); IMMATURE GRAN ABSOLUTE AUTO 0.01 K/uL (0.00-0.05); IMMATURE GRAN PERCENT AUTO 0.2 % (0.0-0.4); LYMPHOCYTES ABSOLUTE AUTO 1.79 K/uL (1.00-4.80); LYMPHOCYTES PERCENT AUTO 33.3 % (24.0-44.0); MEAN CORPUSCULAR HEMOGLOBIN 28.4 pg (28.0-32.0); MEAN CORPUSCULAR HGB CONC 33.5 g/dL (32.0-36.0); MEAN CORPUSCULAR VOLUME 84.7 fL (83.0-99.0); MONOCYTES ABSOLUTE AUTO 0.67 K/uL (0.00-0.80); MONOCYTES PERCENT AUTO 12.5 % (0.0-8.0); NEUTROPHILS ABSOLUTE AUTO 2.64 K/uL (1.80-7.70); NEUTROPHILS PERCENT AUTO 49.1 % (41.0-71.0); PLATELET COUNT,PLT 238 K/uL (150-400); RED BLOOD CELL COUNT 4.58 M/uL (4.52-5.90); WHITE BLOOD CELL COUNT,WBC 5.37 K/uL (3.9-11.3)
[2024-08-08] MEDS: oxyCODONE 5 MG Tab PO ONE (22:03)
[2024-08-08 22:05] LABS: ALBUMIN 3.6 g/dL (3.4-5.0); BILIRUBIN TOTAL 0.3 mg/dL (0.2-1.0); CALCIUM 8.6 mg/dL (8.5-10.1); CARBON DIOXIDE,CO2 27.2 mmol/L (21.0-32.0); CREATININE 1.1 mg/dL (0.8-1.3); EST CRCL DRUG DOSING (CG) 52.58 mL/min; POTASSIUM,K 3.2 mmol/L (3.5-5.1); PROTEIN TOTAL,TP 7.1 g/dL (6.4-8.2)
[2024-08-08 23:47] VITALS: BP 139/78; PULSE 66
== END 2024-08-08 23:47 | disposition home or self-care (01) ==
LOC: MW.ED 21:02
DX: R07.89 Other chest pain (principal); I25.10 Atherosclerotic heart disease of native coronary artery without angina pectoris; I10 Essential (primary) hypertension; I25.2 Old myocardial infarction; Z95.5 Presence of coronary angioplasty implant and graft; E11.9 Type 2 diabetes mellitus without complications; Z87.891 Personal history of nicotine dependence; Z79.82 Long term (current) use of aspirin; Z79.01 Long term (current) use of anticoagulants; Z79.899 Other long term (current) drug therapy; E78.00 Pure hypercholesterolemia, unspecified
CPT/HCPCS: 36415; 71045; 80053; 84484; 85025; 93005; 99285; A9270; 93010; 99284